=== PATIENT | male | born 1955 | race Caucasian/White ===

== ENCOUNTER 2021-01-30 23:49 | Inpatient (IN) | payer MEDICARE, SELFPAY ==
--- NOTE | ~2021-01-30 | XR_ITS ---
EXAMINATION: XR CHEST CLINICAL INFORMATION: Low oxygen. Dyspnea. COMPARISON: Chest radiograph dated from 08/10/2013. TECHNIQUE: AP view of the chest was obtained. FINDINGS: Normal appearance of the cardiomediastinal silhouette. Mild interstitial prominence without focal airspace opacities, pleural effusions or pneumothorax. No acute osseous findings. XR/XR chest 1V IMPRESSION: Mild bronchovascular prominence predominantly in the lower lobes which could be seen in the setting of an infectious/inflammatory process of the small airways. No focal airspace opacities, pleural effusions or pneumothorax.
[2021-01-30 23:59] VITALS: BP 210/127; PULSE 97; RESP 16; TEMP 37; O2SAT 100; BMI 24.5
[2021-01-31] VITALS (15 sets, daily range): BP systolic 160–185; BP diastolic 79–100; PULSE 69–96; RESP 15–22; TEMP 36.3–36.9; O2SAT 92–99
--- NOTE | 2021-01-31 | ECG_ITS ---
Test Reason : SOB Blood Pressure : / mmHG Vent. Rate : 099 BPM Atrial Rate : 099 BPM P-R Int : 146 ms QRS Dur : 092 ms QT Int : 380 ms P-R-T Axes : 083 084 074 degrees QTc Int : 487 ms Normal sinus rhythm Right atrial enlargement Intra-ventricular conduction delay Prolonged QT Abnormal ECG No previous ECGs available Referred By: Generic ED Physician Electronically Signed By:MONICA CANTU MD
--- NOTE | 2021-01-31 00:01 | PC.NURSE ---
PT WALKED INTO TRIAGE SPEAKING HALF SENTENCES, REPORTS DYSPNEA X 2 DAYS. INCREASED WHEN SUPINE. SPO2 ROOM AIR 80%
--- NOTE | 2021-01-31 00:08 | PC.NURSE ---
PT PLACED ON NRB 15 LMP AND ASSISTED TO RM 13 BY WC.
--- NOTE | 2021-01-31 00:21 | ED_ITS ---
HPI - SOB/Dyspnea General Chief Complaint: Dyspnea Stated Complaint: Diff Breathing Time Seen by Provider: 01/31/21 00:03 Source: patient Mode of arrival: ambulatory Limitations: no limitations History of Present Illness HPI Narrative: Patient comes to the emergency room complaining of cough shortness of breath since yesterday. Patient states yesterday he went golfing, initially he thought that his shortness of breath was secondary to allergies to the freshly cut grass. Throughout the day today, patient started becoming more short of breath. To his knowledge, he does not have history asthma or COPD. However, patient is a smoker, states he has not been able to smoke for 3 days due to shortness of breath. Patient denies chest pain. Denies any cardiac history. Denies any recent known exposure to COVID-19. Denies fever chills MD elicited complaint: shortness of breath Related Data Allergies Allergy/AdvReac Type Severity Reaction Status Date / Time No Known Allergies Allergy Unverified 01/11/20 15:12 Review of Systems Review of Systems: Constitutional : No Weight loss, No Fever, No Chills, No Night Sweats, No Fatigue, No Malaise ENT/Mouth : No Hearing loss, No Ear Pain, No Nasal Congestion, No Sinus Pain, No Hoarseness, No sore throat, No Rhinorrhea, No Swallowing Difficulty Eyes: No Eye Pain, No Swelling, No Redness, No Foreign Body, No Discharge, No Vision Changes Cardiovascular : No Chest Pain, No SOB, No Dyspnea on Exertion, No Orthopnea, No Edema, No Palpitations Respiratory : No Cough, No Sputum, complaining of chest tightness, wheezing, shortness of breath Gastrointestinal : No Nausea, No Vomiting, No Diarrhea, No Constipation, No abdominal Pain, No Hematochezia, No Melena Genitourinary : no irregular bleeding, No Dysuria, No Urinary Frequency, No Hematuria, No Urinary Incontinence, No Urgency, No Flank Pain, No Urinary Flow Changes, No Hesitancy Musculoskeletal : No joint pain, No Myalgias, No Joint Swelling Skin : No Skin Lesions, No rash Neuro : No Weakness, No Numbness, No Paresthesias, No Loss of Consciousness, No Dizziness, No Headache Psych : No Anxiety/Panic, No Depression, No SI/HI/AH/VH, No Social Issues, Heme/Lymph: No Bruising, No Bleeding,No Lymphadenopathy Endocrine : No Polyuria, No Polydipsia, No Temperature Intolerance [facility] Past Medical History Medical History (Updated 01/31/21 @ 01:23 by Stephania Saez MD) Hypertension Social History Social History Alcohol intake: never Patient Tobacco Use Status: Current everyday Tobacco user Use of substances other than those prescribed or required for medical reasons: No Advance Directives: No Physical Exam Vital Signs: Vital Signs: Last Vital Signs Temp 98.6 F 01/30/21 23:59 Pulse 96 01/31/21 00:05 Resp 16 01/30/21 23:59 BP 210/127 H 01/30/21 23:59 Pulse Ox 100 01/30/21 23:59 Body Mass Index 24.5 Const: Other: Appearance: Alert. Oriented X3. [id number] Eyes: Pupils equal, round and reactive to light. ENT: Pharynx normal. Neck: Normal inspection. Neck supple. No lymph nodes noted. No crepitus CVS: Normal heart rate and rhythm. Pulses normal. Normal S1 and S2 Respiratory: Mild to moderate respiratory distress. Decreased breath sounds, diffuse wheezing, oxygen saturation 80% on room air Abdomen: Distress . Normal skin color. Normal skin turgor. Extremities: Bilateral +1 pitting edema, No Lacerations. No Rash Neuro: Oriented X 3. No motor deficit. No sensory deficit. Moving all e xtermities. No slurred speech. Course Course Course Narrative: Patient received 1 DuoNeb, albuterol treatment, Solu-Medrol, 1 L of normal saline and ceftriaxone. Sepsis is not suspected, white blood cell count and lactic acid within normal limits, no fever. Patient likely has now COPD, patient may need pulmonary function test to confirm diagnosis. Patient's initial blood pressure 210/127, currently 150 systolic, EKG unremarkable, troponin and BNP within normal limits, COVID negative. Patient is still tight, wheezing mildly. Patient's oxygen saturation is 90% on 3 L nasal cannula. I discussed the labs and imaging with the patient, patient agrees to be admitted to the hospital. Dr. Pandey is admittingthe patient MDM - SOB/Dyspnea Lab Data Result diagrams: 01/31/21 00:16 01/31/21 00:16 Labs: Lab Results 01/31/21 01/31/21 01/31/21 Range/Units 00:16 00:16 00:16 WBC 9.7 (4.8-10.8) X10*3/uL RBC 4.26 L (4.60-5.80) X10*6/uL Hgb 14.8 (14.0-18.0) g/dl Hct 43.0 (42-52) % MCV 100.9 H (80-98) fL MCH 34.7 H (27.0-33.0) pg MCHC 34.4 (31.0-36.0) g/dl RDW 11.9 (11.0-16.0) % Plt Count 261 (160-400) X10*3/uL MPV 10.3 (9.4-12.4) fL Immature Gran % (Auto) 0.3 (0.0-0.4) % Neut % (Auto) 60.2 (45-73) % Lymph % (Auto) 24.7 (20-40) % [place] % (Auto) 8.4 (2-11) % Eos % (Auto) 6.1 H (0-4) % Baso % (Auto) 0.3 (0-2) % Lymph # (Auto) 2.4 (1.2-4.9) X10*3/uL [place] # (Auto) 0.8 (0.1-1.2) X10*3/uL Eos # (Auto) 0.6 H (0.0-0.4) X10*3/uL Baso # (Auto) 0.0 (0.0-0.2) X10*3/uL Abs Immat Gran (auto) 0.03 (0.00-0.03) X10*3/uL Absolute Neuts (auto) 5.8 (2.0-8.3) X10*3/uL Absolute Nucleated RBC 0.000 (0.0-0.012) X10*3/uL Nucleated RBC % (auto) 0.0 (0.0-0.2) /100WBC VBG pH (7.32-7.43) VBG pCO2 mmHg VBG pO2 mmHg VBG HCO3 (22-26) mmol/L VBG O2 Saturation % VBG Base Excess mmol/L Sodium 141 (135-145) mmol/L Potassium 4.2 (3.3-5.1) mmol/L Chloride 105 (96-108) mmol/L Carbon Dioxide 27 (22-29) mmol/L Anion Gap 13 (12-20) BUN 12 (9-16) mg/dL Creatinine 0.93 (0.5-1.4) mg/dL Estim Creat Clear Calc 77.0 Estimated GFR > 60 Random Glucose 98 (60-115) mg/dL Lactic Acid (0.5-2.0) mmol/L Calcium 9.5 (8.4-10.2) mg/dL Troponin I High Sens 5.5 (<3.5-35.0) ng/L B-Natriuretic Peptide 30 (<100) pg/mL Coronavirus (PCR) (Negative) Influenza Type A (PCR) (Negative) Influenza Type B (PCR) (Negative) RSV RNA Qual (PCR) (Negative) 01/31/21 01/31/21 01/31/21 Range/Units 00:16 00:16 00:33 WBC (4.8-10.8) X10*3/uL RBC (4.60-5.80) X10*6/uL Hgb (14.0-18.0) g/dl Hct (42-52) % MCV (80-98) fL MCH (27.0-33.0) pg MCHC (31.0-36.0) g/dl RDW (11.0-16.0) % Plt Count (160-400) X10*3/uL MPV (9.4-12.4) fL Immature Gran % (Auto) (0.0-0.4) % Neut % (Auto) (45-73) % Lymph % (Auto) (20-40) % [place] % (Auto) (2-11) % Eos % (Auto) (0-4) % Baso % (Auto) (0-2) % Lymph # (Auto) (1.2-4.9) X10*3/uL [place] # (Auto) (0.1-1.2) X10*3/uL Eos # (Auto) (0.0-0.4) X10*3/uL Baso # (Auto) (0.0-0.2) X10*3/uL Abs Immat Gran (auto) (0.00-0.03) X10*3/uL Absolute Neuts (auto) (2.0-8.3) X10*3/uL Absolute Nucleated RBC (0.0-0.012) X10*3/uL Nucleated RBC % (auto) (0.0-0.2) /100WBC VBG pH 7.31 L (7.32-7.43) VBG pCO2 63 mmHg VBG pO2 73 mmHg VBG HCO3 32 H (22-26) mmol/L VBG O2 Saturation 89.0 % VBG Base Excess 4.5 mmol/L Sodium (135-145) mmol/L Potassium (3.3-5.1) mmol/L Chloride (96-108) mmol/L Carbon Dioxide (22-29) mmol/L Anion Gap (12-20) BUN (9-16) mg/dL Creatinine (0.5-1.4) mg/dL Estim Creat Clear Calc Estimated GFR Random Glucose (60-115) mg/dL Lactic Acid 1.5 (0.5-2.0) mmol/L Calcium (8.4-10.2) mg/dL Troponin I High Sens (<3.5-35.0) ng/L B-Natriuretic Peptide (<100) pg/mL Coronavirus (PCR) NEGATIVE (Negative) Influenza Type A (PCR) NEGATIVE (Negative) Influenza Type B (PCR) NEGATIVE (Negative) RSV RNA Qual (PCR) NEGATIVE (Negative) Imaging Data Chest x-ray: Radiologist's impression: Mild bronchovascular prominence predominantly in the lower lobes which could be seen in the setting of an infectious/inflammatory process of the small airways. No focal airspace opacities, pleural effusions or pneumothorax. ECG Data Attestation: I personally reviewed and interpreted this ECG as follows: (Normal sinus rhythm, nonspecific ST changes in lead 2 and 3, no reciprocal changes, QTC 487. ) Critical Care Time Critical Care Time Critical Care Time: Yes Total Critical Care Time: 45 Attestation: 45 minutes were spent in direct patient care and stabilization. Discharge Plan Discharge Clinical Impression: COPD exacerbation, Hypertension Patient Disposition: Admitted As Inpatient
[2021-01-31 00:22] LABS: MANUAL DIFF FLAG NO
[2021-01-31 00:23] LABS: Basophils Percent Auto 0.3 % (0-2); Eosinophils Absolute Auto 0.6 X10*3/uL (0.0-0.4); Eosinophils Percent Auto 6.1 % (0-4); Hemoglobin 14.8 g/dl (14.0-18.0); Imm Gran Abs Auto 0.03 X10*3/uL (0.00-0.03); Imm Gran Pct Auto 0.3 % (0.0-0.4); Lymphocytes Absolute Auto 2.4 X10*3/uL (1.2-4.9); Lymphocytes Percent Auto 24.7 % (20-40); Mean Corpuscular HGB Conc 34.4 g/dl (31.0-36.0); Mean Corpuscular Hemoglobin 34.7 pg (27.0-33.0); Mean Corpuscular Volume 100.9 fL (80-98); Mean Platelet Volume 10.3 fL (9.4-12.4); Monocytes Absolute Auto 0.8 X10*3/uL (0.1-1.2); Monocytes Percent Auto 8.4 % (2-11); Neutrophils Absolute Auto 5.8 X10*3/uL (2.0-8.3); Neutrophils Percent Auto 60.2 % (45-73); Platelet Count 261 X10*3/uL (160-400); Red Blood Count 4.26 X10*6/uL (4.60-5.80); Red Cell Distribution Width 11.9 % (11.0-16.0); White Blood Count 9.7 X10*3/uL (4.8-10.8)
[2021-01-31 00:33] LABS: Lactic Acid 1.5 mmol/L (0.5-2.0)
[2021-01-31 00:37] LABS: Anion Gap 13 (12-20); Blood Urea Nitrogen 12 mg/dL (9-16); Calcium 9.5 mg/dL (8.4-10.2); Carbon Dioxide 27 mmol/L (22-29); Chloride 105 mmol/L (96-108); Estimated Glomerular Filt Rate > 60; Glucose Random 98 mg/dL (60-115); Potassium 4.2 mmol/L (3.3-5.1); Sodium 141 mmol/L (135-145)
[2021-01-31] MEDS: Albuterol Sulfate (0.083%) 2.5 MG/3 ML VIAL.NEB 7.5 MG INHALE (00:37)
[2021-01-31] MEDS: Albuterol/Iprat 2.5/0.5MG 3 ML AMPUL.NEB 1.5 ML INHALE (00:37)
[2021-01-31 00:38] LABS: Venous Blood Gas Refer to POC result
[2021-01-31 00:38] LABS: VBG Base Excess 4.5 mmol/L; VBG HCO3 32 mmol/L (22-26); VBG pCO2 63 mmHg; VBG pH 7.31 (7.32-7.43); VBG pO2 73 mmHg
[2021-01-31 00:43] LABS: B Type Natriuretic Peptide 30 pg/mL (<100); Troponin-I High Sensitivity 5.5 ng/L (<3.5-35.0)
[2021-01-31 01:03] LABS: Influenza A PCR NEGATIVE (Negative); Influenza B PCR NEGATIVE (Negative); Resp Syncy Virus RNA Qual PCR NEGATIVE (Negative); SARS COV2 PCR INHOUSE NEGATIVE (Negative)
[2021-01-31] MEDS: methylPREDNISolone Sod Succ 125 MG/2 ML VIAL IVPUSH (01:14)
[2021-01-31] MEDS: 0.9 % Sodium Chloride 1,000 ML 999 ML IVCONT (01:40)
[2021-01-31] MEDS: cefTRIAXone sodium 1 GM in 0.9 % Sodium Chloride 50 ML IV ×2 (01:41→21:10)
--- NOTE | 2021-01-31 01:43 | PM.IMHP ---
History of Present Illness Date of Service: 01/31/21 Chief Complaint: sob 65-year-old male with past medical history of hypertension not on any medications presents to the hospital with complaints of shortness of breath. Patient reports that his symptoms started about 3 days ago, is also complaining of cough and some sputum production with no fever or chills. He feels chest tightness every time he tries to take a deep breath he but no chest tightness on exertion or at rest. He denies having any abdominal pain nausea or vomiting, no diarrhea constipation, no urinary symptoms and no lower extremity edema. No orthopnea or PND. No lower extremity edema. Patient denies any similar episode in the past. He reports that he smokes about half pack per day for over 50 years. He has never been diagnosed with COPD in the past. On arrival to the ED patient found to have to a temp of 98.6, heart rate of 97, respiratory rate of 16, blood pressure of 210/127, O2 sat of 80% on room air on initial presentation to the ED, currently on 4.5 L of nasal cannula satting 95% Labs reviewed showed WBC count of 7.5, hemoglobin of 14.2, pH of 7.31 with a CO2 of 63, Chest x-ray that shows mild bronchovascular prominence predominantly in the lower lobe which can be seen with infection process of the small airways. Patient will be admitted for further management Review of Systems Review of Systems: Yes all other systems are reviewed and are negative [facility] Medical History (Updated 01/31/21 @ 06:38 by Marlee Pandey MD) Hypertension Pertinent family history: denies any family history Surgical History (Updated 01/31/21 @ 06:37 by Marlee Pandey MD) History of appendectomy Social History Alcohol intake: never Patient Tobacco Use Status: Current everyday Tobacco user Use of substances other than those prescribed or required for medical reasons: No Advance Directives: No Meds Allergies Allergy/AdvReac Type Severity Reaction Status Date / Time No Known Allergies Allergy Unverified 01/11/20 15:12 Active Medications: Current Medications Sodium Chloride (Ns) 1,000 mls @ 999 mls/hr IVCONT .Q1H1M ONE Stop: 01/31/21 02:13 Last Admin: 01/31/21 01:40 Dose: 999 mls/hr Documented by: Physical Exam Vital Signs and Narrative: Vital Signs: Last Vital Signs Temp 98.6 F 01/30/21 23:59 Pulse 96 01/31/21 00:05 Resp 16 01/30/21 23:59 BP 210/127 H 01/30/21 23:59 Pulse Ox 100 01/30/21 23:59 Body Mass Index 24.5 Results Labs CBC and Chem 7: 01/31/21 00:16 01/31/21 00:16 Labs: Laboratory Results - last 24 hr 01/31/21 01/31/21 01/31/21 00:16 00:16 00:16 MCV 100.9 H MCH 34.7 H MCHC 34.4 RDW 11.9 Plt Count 261 MPV 10.3 Immature Gran % (Auto) 0.3 Neut % (Auto) 60.2 Lymph % (Auto) 24.7 [place] % (Auto) 8.4 Eos % (Auto) 6.1 H Baso % (Auto) 0.3 Lymph # (Auto) 2.4 [place] # (Auto) 0.8 Eos # (Auto) 0.6 H Baso # (Auto) 0.0 Abs Immat Gran (auto) 0.03 Absolute Neuts (auto) 5.8 Absolute Nucleated RBC 0.000 Nucleated RBC % (auto) 0.0 VBG pH VBG pCO2 VBG pO2 VBG HCO3 VBG O2 Saturation VBG Base Excess Anion Gap 13 Estim Creat Clear Calc 77.0 Estimated GFR > 60 Random Glucose 98 Lactic Acid Calcium 9.5 Troponin I High Sens 5.5 B-Natriuretic Peptide 30 Coronavirus (PCR) Influenza Type A (PCR) Influenza Type B (PCR) RSV RNA Qual (PCR) 01/31/21 01/31/21 01/31/21 00:16 00:16 00:33 MCV MCH MCHC RDW Plt Count MPV Immature Gran % (Auto) Neut % (Auto) Lymph % (Auto) [place] % (Auto) Eos % (Auto) Baso % (Auto) Lymph # (Auto) [place] # (Auto) Eos # (Auto) Baso # (Auto) Abs Immat Gran (auto) Absolute Neuts (auto) Absolute Nucleated RBC Nucleated RBC % (auto) VBG pH 7.31 L VBG pCO2 63 VBG pO2 73 VBG HCO3 32 H VBG O2 Saturation 89.0 VBG Base Excess 4.5 Anion Gap Estim Creat Clear Calc Estimated GFR Random Glucose Lactic Acid 1.5 Calcium Troponin I High Sens B-Natriuretic Peptide Coronavirus (PCR) NEGATIVE Influenza Type A (PCR) NEGATIVE Influenza Type B (PCR) NEGATIVE RSV RNA Qual (PCR) NEGATIVE Imaging Radiologist's Impressions: Impressions Chest X-Ray 01/31/21 00:00 IMPRESSION: Mild bronchovascular prominence predominantly in the lower lobes which could be seen in the setting of an infectious/inflammatory process of the small airways. No focal airspace opacities, pleural effusions or pneumothorax. Assessment and Plan (1) COPD exacerbation: Status: Acute (2) Hypertensive urgency: Status: Acute (3) Acute respiratory failure with hypoxia: Status: Acute (4) Community acquired pneumonia: Status: Acute This is a 65-year-old male with past medical history of hypertension presents to the hospital with complaints of shortness of breath cough and sputum production. No history of COPD # acute hypoxic respiratory failure - most likely secondary to COPD exacerbation as well as pneumonia - patient with a history of chronic tobacco use with no official diagnosis of COPD presents with dyspnea, cough and sputum production - found to have oxygen of 80% on room air on arrival to the ED - no evidence of CHF, no risk factors for PE - chest x-ray shows possible infiltrate - afebrile, no leukocytosis - will continue O2 supplement - IV antibiotics - Solu-Medrol and DuoNeb - titrate O2 as tolerated # COPD exacerbation - no official diagnosis COPD - has history of tobacco use with dyspnea cough and sputum production - will start on Solu-Medrol IV, DuoNeb p.r.n. as well as scheduled, O2 as required, IV antibiotics for the pneumonia - advised to follow-up with data collection associate for spirometry # hypertensive urgency - initial blood pressure 210/127 - asymptomatic - improved spontaneously and currently 170s over 90s - does not appear to be on any medications - at this time will monitor, if continues to be elevated consider starting p.o. medications DVT prophylaxis: Lovenox Quality Stroke Does the patient have a stroke diagnosis?: No VTE Prior VTE?: No VTE Risk Level:: Medical - moderate - high VTE Device Contraindication: Treatment Not Indicated VTE Drug Contraindication: N/A - Med Ordered
[2021-01-31] MEDS: Azithromycin 500 MG in 0.9 % Sodium Chloride 250 ML 125 MG IV (06:25)
[2021-01-31 06:57] LABS: MANUAL DIFF FLAG NO
[2021-01-31 07:00] LABS: Basophils Percent Auto 0.4 % (0-2); Eosinophils Absolute Auto 0.4 X10*3/uL (0.0-0.4); Eosinophils Percent Auto 5.5 % (0-4); Hematocrit 39.1 % (42-52); Hemoglobin 12.9 g/dl (14.0-18.0); Imm Gran Abs Auto 0.05 X10*3/uL (0.00-0.03); Imm Gran Pct Auto 0.6 % (0.0-0.4); Lymphocytes Percent Auto 24.3 % (20-40); Mean Corpuscular Hemoglobin 33.9 pg (27.0-33.0); Mean Corpuscular Volume 102.6 fL (80-98); Mean Platelet Volume 10.9 fL (9.4-12.4); Monocytes Absolute Auto 0.8 X10*3/uL (0.1-1.2); Monocytes Percent Auto 9.5 % (2-11); Neutrophils Absolute Auto 4.8 X10*3/uL (2.0-8.3); Neutrophils Percent Auto 59.7 % (45-73); Platelet Count 235 X10*3/uL (160-400); Red Blood Count 3.81 X10*6/uL (4.60-5.80); Red Cell Distribution Width 11.9 % (11.0-16.0)
--- NOTE | 2021-01-31 07:13 | PHA.MEDREC ---
Pharmacy Consult ? Medication Reconciliation Pharmacy has completed the medication reconciliation. There are no remarkable issues for provider's attention. Stacey Villa, RobertoD
[2021-01-31] MEDS: Albuterol/Iprat 2.5/0.5MG 3 ML AMPUL.NEB INHALE ×4 (07:48→21:15)
--- NOTE | 2021-01-31 08:20 | PC.NURSE ---
pt seen by candace saldaña aware of plan of care for admission to hosp.
[2021-01-31] MEDS: Enoxaparin Sodium 40 MG/0.4 ML SYRINGE SUBCUT (08:36)
[2021-01-31] MEDS: 0.9 % Sodium Chloride Flush 3 ML SYRINGE IVFLUSH ×3 (08:37→21:11)
--- NOTE | 2021-01-31 10:42 | MHC.CM.PN ---
CM MET WITH PT IN ED 13. PT REPORTS HE LIVES ALONE AND IS INDEPENDENT WITH ALL CARE PT DENIES USE OF DME OR HOME SERVICES PT IS EMPLOYED AND DRIVES PT DOES NOT HAVE A HCP BUT WILL COMPLETE ONE DURING ADMISSION PT CONFIRMS HIS PCP IS HAZEL CANTU. CURRENT DC PLAN IS HOME WITH NO SERVICES PT WILL DRIVE HIMSELF HOME AT DC
--- NOTE | 2021-01-31 12:07 | P.EN_ITS ---
Event Note Date of Service: 01/31/21 Event Note: Chart reviewed patient examined. Exam unchanged from H and P. Pat ient resting quietly no respiratory distress. Will continue IV antibiotics/steroids/nebs and follow clinical response
[2021-01-31] MEDS: methylPREDNISolone Sod Succ 125 MG/2 ML VIAL 60 MG IVPUSH ×2 (12:52→21:10)
--- NOTE | 2021-01-31 14:39 | PC.NURSE ---
attempt to call report. no answer
--- NOTE | 2021-01-31 14:42 | PC.NURSE ---
hosea sent to [facility]
[2021-02-01] VITALS (11 sets, daily range): BP systolic 140–160; BP diastolic 69–80; PULSE 62–115; RESP 17–18; TEMP 36.1–36.8; O2SAT 90–94
[2021-02-01] MEDS: Azithromycin 500 MG in 0.9 % Sodium Chloride 250 ML 125 MG IV (02:56)
[2021-02-01] MEDS: Enoxaparin Sodium 40 MG/0.4 ML SYRINGE SUBCUT (06:22)
[2021-02-01] MEDS: methylPREDNISolone Sod Succ 125 MG/2 ML VIAL 60 MG IVPUSH ×3 (06:22→22:02)
[2021-02-01] MEDS: Albuterol/Iprat 2.5/0.5MG 3 ML AMPUL.NEB INHALE ×4 (08:22→21:02)
[2021-02-01] MEDS: 0.9 % Sodium Chloride Flush 3 ML SYRINGE IVFLUSH ×3 (09:09→22:02)
--- NOTE | 2021-02-01 16:30 | P.PNIM_ITS ---
Subjective Subjective Date of Service: 04/08/21 Interval History: Breathing somewhat improved overnight. Cough more productive after Neb Physical Exam Vital Signs: Vital Signs: Last Vital Signs Temp 98.2 F 02/01/21 15:36 Pulse 70 02/01/21 15:39 Resp 18 02/01/21 15:36 BP 144/80 H 02/01/21 15:36 Pulse Ox 92 02/01/21 15:36 Body Mass Index 24.5 Const: Other: Awake alert in no acute distress. Ambulatory sats on room air greater than 94% HENMT: Other: Oropharynx clear membranes moist Resp: Other: Diminished with aeration to the bases. Bibasilar expiratory wheezes; improved. Coarse rhonchi clear with cough Cardio: Other: No S4 positive S1-S2 no S3 without murmurs rubs or gallops GI: Other: Soft nontender nondistended with normoactive bowel sounds. There is no appreciable hepatosplenomegaly Neuro: Other: Cranial nerves 2-12 grossly intact as tested. Motor is 5/5 all extremities sensation is intact. Gait steady Extrem: Other: No edema bilaterally Objective Data Active Medications Acetaminophen (Acetaminophen 325 Mg Tablet) 650 mg PO Q6H PRN PRN Reason: Pain, Mild (Pain Scale 1-3) Albuterol/Ipratropium (Albuterol/Iprat 2.5/0.5mg 3 Ml Ampul.Neb) 3 ml INHALE RQ4H WHILE AWAKE [facility] Last Admin: 02/01/21 15:39 Dose: 3 ml Documented by: ИВАН Albuterol/Ipratropium (Albuterol/Iprat 2.5/0.5mg 3 Ml Ampul.Neb) 3 ml INHALE RQ4H PRN PRN Reason: Shortness of Breath/Wheezing Docusate Sodium (Docusate Sodium 100 Mg Capsule) 100 mg PO DAILY PRN PRN Reason: Constipation Enoxaparin Sodium (Enoxaparin Sodium 40 Mg/0.4 Ml Syringe) 40 mg SUBCUT Q24H [facility] Last Admin: 02/01/21 06:22 Dose: 40 mg Documented by: DORCAS Azithromycin 500 mg/ Sodium (Chloride) 250 mls @ 125 mls/hr IV Q24H [facility] Last Infusion: 02/01/21 05:14 Dose: 0 mls/hr Documented by: DORCAS Ceftriaxone Sodium 1 gm/ (Sodium Chloride) 50 mls @ 100 mls/hr IV Q24H [facility] Last Infusion: 01/31/21 22:21 Dose: 0 mls/hr Documented by: DORCAS Methylprednisolone Sodium Succinate (Methylprednisolone Sod Succ 125 Mg/2 Ml Vial) 60 mg IVPUSH Q8H [facility] Last Admin: 02/01/21 12:29 Dose: 60 mg Documented by: WILDER Ondansetron HCl (Ondansetron Hcl 4 Mg/2 Ml Vial) 4 mg IVPUSH Q8H PRN PRN Reason: Nausea and Vomiting Sodium Chloride (0.9 % Sodium Chloride Flush 3 Ml Syringe) 3 ml IVFLUSH QSHIFT [facility] Last Admin: 02/01/21 16:17 Dose: 3 ml Documented by: WILDER Labs CBC & Chem 7: 02/02/21 05:27 02/02/21 05:27 Microbiology Microbiology Results: Microbiology 01/31/21 00:58 Blood Culture - Preliminary Blood - Venous No growth after 24 hours. 01/31/21 00:30 Blood Culture - Preliminary Blood - Venous No growth after 24 hours. Assessment and Plan (1) COPD exacerbation: Status: Acute Assessment and Plan: This is a 65-year-old male with past medical history of hypertension presents to the hospital with complaints of shortness of breath cough and sputum production. No history of COPD # acute hypoxic respiratory failure - most likely secondary to COPD exacerbation as well as pneumonia - patient with a history of chronic tobacco use with no official diagnosis of COPD presents with dyspnea, cough and sputum production - found to have oxygen of 80% on room air on arrival to the ED - no evidence of CHF, no risk factors for PE - chest x-ray shows possible infiltrate - afebrile, no leukocytosis - will continue O2 supplement - IV antibiotics - Solu-Medrol and DuoNeb - titrate O2 as tolerated # COPD exacerbation - no official diagnosis COPD - has history of tobacco use with dyspnea cough and sputum production - will start on Solu-Medrol IV, DuoNeb p.r.n. as well as scheduled, O2 as req uired, IV antibiotics for the pneumonia - advised to follow-up with [place] worker helper for spirometry # hypertensive urgency - initial blood pressure 210/127 - asymptomatic - improved spontaneously and currently 170s over 90s - does not appear to be on any medications - at this time will monitor, if continues to be elevated consider starting p.o. medications DVT prophylaxis: Lovenox Quality Stroke Does the patient have a stroke diagnosis?: No VTE Prior VTE?: No VTE Risk Level:: Medical - moderate - high VTE Device Contraindication: Treatment Not Indicated VTE Drug Contraindication: N/A - Med Ordered
[2021-02-01] MEDS: cefTRIAXone sodium 1 GM in 0.9 % Sodium Chloride 50 ML IV (22:02)
[2021-02-02] MEDS: Azithromycin 500 MG in 0.9 % Sodium Chloride 250 ML 125 MG IV (02:59)
[2021-02-02 04:00] VITALS: BP 151/81; PULSE 84; RESP 17; TEMP 36.4; O2SAT 95
[2021-02-02] MEDS: methylPREDNISolone Sod Succ 125 MG/2 ML VIAL 60 MG IVPUSH ×2 (05:39→11:54)
[2021-02-02 06:30] LABS: Hematocrit 36.9 % (42-52); Hemoglobin 12.5 g/dl (14.0-18.0); Imm Gran Abs Auto 0.16 X10*3/uL (0.00-0.03); Imm Gran Pct Auto 0.8 % (0.0-0.4); Lymphocytes Absolute Auto 0.7 X10*3/uL (1.2-4.9); Lymphocytes Percent Auto 3.5 % (20-40); MANUAL DIFF FLAG SCAN; Mean Corpuscular HGB Conc 33.9 g/dl (31.0-36.0); Mean Corpuscular Hemoglobin 34.4 pg (27.0-33.0); Mean Corpuscular Volume 101.7 fL (80-98); Mean Platelet Volume 11.3 fL (9.4-12.4); Monocytes Absolute Auto 0.6 X10*3/uL (0.1-1.2); Monocytes Percent Auto 2.8 % (2-11); Neutrophils Absolute Auto 18.6 X10*3/uL (2.0-8.3); Neutrophils Percent Auto 92.9 % (45-73); Platelet Count 234 X10*3/uL (160-400); Red Blood Count 3.63 X10*6/uL (4.60-5.80); Red Cell Distribution Width 12.2 % (11.0-16.0); SCAN SMEAR FLAG 1; White Blood Count 20.1 X10*3/uL (4.8-10.8)
[2021-02-02 06:52] LABS: Alanine Aminotransferase 21 U/L (0-40); Albumin Level 3.7 g/dL (3.5-5.0); Alkaline Phosphatase 48 U/L (39-117); Anion Gap 13 (12-20); Aspartate Amino Transferase 13 U/L (5-37); Bilirubin Total 0.3 mg/dL (0.0-1.0); Blood Urea Nitrogen 20 mg/dL (9-16); Calcium 8.6 mg/dL (8.4-10.2); Carbon Dioxide 27 mmol/L (22-29); Chloride 106 mmol/L (96-108); Creatinine Clr Calc Pharmacy 80.5; Estimated Glomerular Filt Rate > 60; Glucose Fasting 152 mg/dL (60-99); Potassium 4.5 mmol/L (3.3-5.1); Sodium 141 mmol/L (135-145); Total Protein 5.8 g/dL (6.5-8.0)
[2021-02-02 07:06] LABS: SLIDE REVIEW VERIFIED
[2021-02-02 07:42] VITALS: BP 145/77; PULSE 68; RESP 18; TEMP 36.3; O2SAT 96
[2021-02-02] MEDS: Albuterol/Iprat 2.5/0.5MG 3 ML AMPUL.NEB INHALE ×2 (07:55→11:15)
[2021-02-02 07:56] VITALS: PULSE 79; O2SAT 94
[2021-02-02] MEDS: 0.9 % Sodium Chloride Flush 3 ML SYRINGE IVFLUSH (08:48)
[2021-02-02 10:33] VITALS: O2SAT 93
[2021-02-02 11:15] VITALS: PULSE 80; O2SAT 90
--- NOTE | 2021-02-02 11:15 | PM.DS ---
DS: Providers Provider Date of Service: 02/02/21 Date of admission: 01/31/21 01:21 Primary care physician: Feliberto Britt MD DS: Diagnosis Discharge Diagnosis (1) COPD exacerbation: Status: Acute (2) Hypertensive urgency: Status: Acute (3) Acute respiratory failure with hypoxia: Status: Acute (4) Community acquired pneumonia: Status: Acute DS: Summary Hospital Course Hospital Course: 65-year-old male with past medical history of hypertension not on any medications presents to the hospital with complaints of shortness of breath.? Patient reports that his symptoms started about 3 days ago, is also complaining of cough and some sputum production with no fever or chills.? He feels chest tightness every time he tries to take a deep breath he but no chest tightness on exertion or at rest.? He denies having any abdominal pain nausea or vomiting, no diarrhea constipation, no urinary symptoms and no lower extremity edema.? No orthopnea or PND.? No lower extremity edema.? Patient denies any similar episode in the past.? He reports that he smokes about half pack per day for over 50 years.? He has never been diagnosed with COPD in the past(Multiyear smoker) Hospital course Patient [place] [facility] pulmonary toilet including frequent nebs pulse dose Solu-Medrol and IV ceftriaxone/azithromycin. Over the next 48 hours his O2 requirement resolved and he was able to ambulate in the hallway with sats dropping no less than 94%. At this time he is medically acceptable for discharge to home with follow-up with PCP Time Spent with Patient Time attestation: Total time spent providing and/or coordinating discharge services: Discharge coordination time: Greater than 30 minutes Quality: Stroke Does the patient have a stroke diagnosis?: No Physical Exam Vital Signs: Vital Signs: Last Vital Signs Temp 97.4 F 02/02/21 07:42 Pulse 79 02/02/21 07:56 Resp 18 02/02/21 07:42 BP 145/77 H 02/02/21 07:42 Pulse Ox 93 02/02/21 10:33 Body Mass Index 24.5 Const: Other: Awake alert in no acute distress. Ambulatory sats on room air greater than 94% HENMT: Other: Oropharynx clear membranes moist Resp: Other: Diminished with aeration to the bases. Bibasilar expiratory wheezes; improved. Coarse rhonchi clear with cough Cardio: Other: No S4 positive S1-S2 no S3 without murmurs rubs or gallops GI: Other: Soft nontender nondistended with normoactive bowel sounds. There is no appreciable hepatosplenomegaly Neuro: Other: Cranial nerves 2-12 grossly intact as tested. Motor is 5/5 all extremities sensation is intact. Gait steady Extrem: Other: No edema bilaterally DS: Data Data Completed and Pending Labs on day of discharge: Laboratory Results - last 24 hr 02/02/21 02/02/21 05:27 05:27 WBC 20.1 H RBC 3.63 L Hgb 12.5 L Hct 36.9 L MCV 101.7 H MCH 34.4 H MCHC 33.9 RDW 12.2 Plt Count 234 MPV 11.3 Immature Gran % (Auto) 0.8 H Neut % (Auto) 92.9 H Lymph % (Auto) 3.5 L [place] % (Auto) 2.8 Eos % (Auto) 0.0 Baso % (Auto) 0.0 Lymph # (Auto) 0.7 L [place] # (Auto) 0.6 Eos # (Auto) 0.0 Baso # (Auto) 0.0 Abs Immat Gran (auto) 0.16 H Absolute Neuts (auto) 18.6 H Absolute Nucleated RBC 0.000 Nucleated RBC % (auto) 0.0 Smear Tech's Comments VERIFIED Sodium 141 Potassium 4.5 Chloride 106 Carbon Dioxide 27 Anion Gap 13 BUN 20 H D Creatinine 0.89 Estim Creat Clear Calc 80.5 Estimated GFR > 60 Fasting Glucose 152 H Calcium 8.6 D Total Bilirubin 0.3 AST 13 ALT 21 Alkaline Phosphatase 48 Total Protein 5.8 L Albumin 3.7 Preliminary micro results at discharge 01/31/21 00:58 Blood Culture - Preliminary Blood - Venous No growth after 48 hours. 01/31/21 00:30 Blood Culture - Preliminary Blood - Venous No growth after 48 hours. Discharge Plan Discharge Patient Disposition: Home, Self-Care Discharge Diagnosis: Community-acquired pneumonia/COPD exacerbation Referrals: Feliberto Britt MD [Primary Care Provider] - 1 Week Discharge Medications: New doxycycline hyclate 100 mg tablet 100 mg PO BID Qty: 14 RF: 0 prednisone 10 mg tablet See Rx Instructions .Route .COMPLEX Qty: 45 RF: 0 albuterol sulfate [Proventil HFA] 90 mcg/actuation HFA aerosol inhaler 2 puff inhalation QID PRN (Reason: shortness of breath or wheezing) Qty: 8.5 RF: 2 (DME) Aerochamber MV Spacer See Rx Instructions .Route Qty: 10 RF: 0 Continued multivitamin Tablet 1 tab PO DAILY RF: 0 losartan 50 mg tablet 1 tab PO DAILY RF: 0 atorvastatin 10 mg tablet 1 tab PO DAILY RF: 0 omeprazole 20 mg Capsule,Delayed Release(Dr/Ec) 20 mg PO DAILY RF: 0 doxazosin 2 mg tablet 1 tab PO BEDTIME RF: 0 Discharge Orders: Discharge Order (Routine); Ordered 02/02/21 Ordered By: Roni Gregg Stand Alone Forms: Patient Portal Discharge page Care Plan Goals: Maximize function Health Concerns: Tobacco cessation Plan of Treatment: Oral doxycycline/prednisone taper Assessment: Improved
[2021-02-02 11:19] VITALS: BP 163/77; PULSE 78; RESP 18; TEMP 36.5; O2SAT 98
--- NOTE | 2021-02-02 12:27 | MHC.CM.PN ---
PT TO DC HOME TODAY WITH NO SERVICES PT TO SELF ARRANGE TRANSPORT
== END 2021-02-02 13:00 | disposition home or self-care (01) | DRG 193 ==
LOC: HO.ED 01-31 01:23 → HO.EDOVER 01-31 01:26 → HO.S3 01-31 13:55
PROVIDERS: Emergency Medicine Emergency Medical Services; Admitting Provider Internal Medicine; Emergency Provider Emergency Medicine; PCP Internal Medicine; Visit Provider Hospitalist
DX: J18.9 Pneumonia, unspecified organism (principal); J96.01 Acute respiratory failure with hypoxia; J44.1 Chronic obstructive pulmonary disease with (acute) exacerbation; J44.0 Chronic obstructive pulmonary disease with (acute) lower respiratory infection; F17.210 Nicotine dependence, cigarettes, uncomplicated; Z71.6 Tobacco abuse counseling; I10 Essential (primary) hypertension; I16.0 Hypertensive urgency; Z20.822 Contact with and (suspected) exposure to COVID-19; Z79.899 Other long term (current) drug therapy
CPT/HCPCS: 0241U; 36415; 71045; 80048; 80053; 82803; 83605; 83880; 84484; 85025; 85027; 87040; 93005; 94640; 94644; 99285; J0456; J0696; J1650; J2930

== ENCOUNTER 2021-02-24 11:23 | Outpatient (REF) | payer MEDICARE, SELFPAY ==
--- NOTE | ~2021-02-24 | XR_ITS ---
EXAMINATION: XR CHEST CLINICAL INFORMATION: COPD. Pneumonia. COMPARISON: Most recent chest radiograph dated 01/31/2021. TECHNIQUE: 2 views of the chest were obtained. FINDINGS: The lungs are clear. The cardiomediastinal silhouette is normal in size. There is no pleural effusion or pneumothorax. No acute osseous abnormality. XR/XR chest 2V IMPRESSION: No acute cardiopulmonary findings.
[2021-02-24 13:41] LABS: MANUAL DIFF FLAG NO
[2021-02-24 13:44] LABS: Basophils Percent Auto 0.4 % (0-2); Eosinophils Absolute Auto 0.2 X10*3/uL (0.0-0.4); Eosinophils Percent Auto 1.9 % (0-4); Hematocrit 38.6 % (42.0-52.0); Hemoglobin 13.3 g/dl (14.0-18.0); Imm Gran Abs Auto 0.02 X10*3/uL (0.00-0.03); Imm Gran Pct Auto 0.2 % (0.0-0.4); Lymphocytes Absolute Auto 1.4 X10*3/uL (1.2-4.9); Lymphocytes Percent Auto 17.5 % (20-40); Mean Corpuscular HGB Conc 34.5 g/dl (31.0-36.0); Mean Corpuscular Hemoglobin 34.4 pg (27.0-33.0); Mean Corpuscular Volume 99.7 fL (80.0-98.0); Mean Platelet Volume 10.8 fL (9.4-12.4); Monocytes Absolute Auto 0.6 X10*3/uL (0.1-1.2); Monocytes Percent Auto 7.8 % (2-11); Neutrophils Absolute Auto 5.82 x10*3/uL (2.0-8.3); Neutrophils Percent Auto 72.2 % (45-73); Platelet Count 264 X10*3/uL (160-400); Red Blood Count 3.87 X10*6/uL (4.60-5.80); Red Cell Distribution Width 11.5 % (11.0-16.0); White Blood Count 8.1 X10*3/uL (4.8-10.8)
[2021-02-24 14:01] LABS: Appearance Urine CLEAR; Color Urine YELLOW; Glucose Urine UA NEG (NEG); Leukocyte Esterase Urine NEG (NEG); Nitrite Urine NEG (NEG); PH 5.5 (5.0-8.0); Urine Blood NEG (NEG); Urine Ketones 15 MG/DL (NEG); Urine Protein NEG (NEG-TRACE)
[2021-02-24 14:05] LABS: Alanine Aminotransferase 29 U/L (0-40); Albumin Level 4.2 g/dL (3.5-5.0); Alkaline Phosphatase 56 U/L (39-117); Anion Gap 13 (12-20); Aspartate Amino Transferase 23 U/L (5-37); Bilirubin Total 0.9 mg/dL (0.0-1.0); Blood Urea Nitrogen 13 mg/dL (9-16); Calcium 8.9 mg/dL (8.4-10.2); Carbon Dioxide 27 mmol/L (22-29); Chloride 105 mmol/L (96-108); Cholesterol 163 mg/dL; Estimated Glomerular Filt Rate > 60; Glucose Fasting 95 mg/dL (60-99); HDL Cholesterol 67 mg/dL; LDL Cholesterol Calculated 80 mg/dl; Potassium 4.1 mmol/L (3.3-5.1); Sodium 141 mmol/L (135-145); Total Protein 6.4 g/dL (6.5-8.0); Triglycerides 84 mg/dL
[2021-02-24 14:29] LABS: Prostate Specific Antigen Scr 0.99 ng/mL (<0.05-4.0)
== END 2021-02-24 11:24 | disposition home or self-care (01) ==
LOC: HO.10HDL 11:23
PROVIDERS: Visit Provider Internal Medicine
DX: Z12.5 Encounter for screening for malignant neoplasm of prostate (principal); J44.9 Chronic obstructive pulmonary disease, unspecified; I10 Essential (primary) hypertension; E78.00 Pure hypercholesterolemia, unspecified; N40.0 Benign prostatic hyperplasia without lower urinary tract symptoms; Z87.01 Personal history of pneumonia (recurrent)
CPT/HCPCS: 36415; 71046; 80053; 80061; 81003; 84153; 85025

== ENCOUNTER 2021-11-30 06:31 | Observation (INO) | payer MEDICARE, SELFPAY ==
[2021-11-30] VITALS (7 sets, daily range): BP systolic 147–182; BP diastolic 74–88; PULSE 82–112; RESP 12–20; TEMP 36.7–37.1; O2SAT 90–96; BMI 23.6
--- NOTE | ~2021-11-30 | XR_ITS ---
EXAMINATION: XR CHEST CLINICAL INFORMATION: Dyspnea COMPARISON: February 24, 2021 TECHNIQUE: AP portable view of the chest was obtained. FINDINGS: No significant abnormality is noted involving the heart, lungs, mediastinum, bony thorax or soft tissues. XR/XR chest 1V IMPRESSION: No acute disease.
--- NOTE | 2021-11-30 07:05 | ECG_ITS ---
Test Reason : DYSPNEA Blood Pressure : / mmHG Vent. Rate : 080 BPM Atrial Rate : 080 BPM P-R Int : 140 ms QRS Dur : 102 ms QT Int : 402 ms P-R-T Axes : 084 082 067 degrees QTc Int : 463 ms Normal sinus rhythm Normal ECG When compared with ECG of 31-JAN-2021 00:11, No significant change was found Referred By: Generic ED Physician Electronically Signed By:DARON BATES MD
--- NOTE | 2021-11-30 07:10 | ED_ITS ---
HPI - SOB/Dyspnea General Chief Complaint: Dyspnea Stated Complaint: Trouble Breathing Time Seen by Provider: 11/30/21 07:07 Source: patient Limitations: no limitations History of Present Illness HPI Narrative: 66 years on the smoker presented to the emergency department with a chief complaint of shortness of breath x4 days, denies any fever chills,he is concerned that he may have a pneumonia MD elicited complaint: shortness of breath and cough Pertinent past history: COPD Onset (ago): day(s) (4) Timing: constant Severity: moderate Exacerbating factors: exertion Known history of: COPD Associated symptoms: denies other symptoms Related Data Home oxygen amount: none Home Medications Medication Instructions Recorded Confirmed atorvastatin 10 mg tablet 1 tab PO DAILY 01/31/21 11/30/21 doxazosin 2 mg tablet 1 tab PO BEDTIME 01/31/21 11/30/21 losartan 50 mg tablet 1 tab PO DAILY 01/31/21 11/30/21 multivitamin 1 tab PO DAILY 01/31/21 11/30/21 omeprazole 20 mg capsule,delayed 20 mg PO DAILY 01/31/21 11/30/21 release Previous Rx's Medication Instructions Recorded albuterol sulfate 90 mcg/actuation 2 puff inhalation QID PRN 02/02/21 aerosol inhaler (Proventil HFA) shortness of breath or wheezing #8.5 grams inhalational spacing device #10 ea 02/02/21 (Aerochamber MV spacer) Allergies Allergy/AdvReac Type Severity Reaction Status Date / Time No Known Allergies Allergy Verified 01/31/21 16:37 Review of Systems Constitutional: Constitutional: Reports no additional constitutional complaints ENT: Reports system reviewed and no additional complaints, except as documented Cardiovascular: Cardiovascular: Reports dyspnea Respiratory: Respiratory: Reports cough and Reports dyspnea Gastrointestinal: Gastrointestinal: Reports no additional gastrointestinal complaints [facility] Past Medical History Medical History (Updated 11/30/21 @ 14:37 by Nabil Gale MD) GERD (gastroesophageal reflux disease) HLD (hyperlipidemia) Hypertension Hypertension Surgical History History of appendectomy Social History Social History Household Members: None Housing: Apartment Do you presently have visiting nurse or other home services: No Alcohol intake: never Patient Tobacco Use Status: Current everyday Tobacco user Tobacco use type: Cigarette e-Cigarette/Vaping Use: Currently Using Second Hand Smoke Exposure: No Advance Directives: Yes Advance Directives Information Provided: Yes Advance Directives on File: No Current occupational status: employed Physical Exam Vital Signs: Vital Signs: Last Vital Signs Temp 98.2 F 11/30/21 11:41 Pulse 82 11/30/21 14:31 Resp 18 11/30/21 14:31 BP 179/87 H 11/30/21 11:41 Pulse Ox 92 11/30/21 11:41 O2 Del Method 11/30/21 11:41 BMI result Body Mass Index 23.6 Const: General: cooperative HEENT: Head: Yes normal to inspection Ears: TM's normal bilaterally General nose exam: Normal external nose present Face and sinus: Yes normal facial exam Mouth: Normal oral and palatal mucosa present Throat: Yes posterior oropharynx normal Neck: Neck: Yes normal visual inspection, Yes full ROM and Yes no lymphadenopathy Chest: Chest palpation & inspection: normal inspection of the chest Breast/axilla inspection: normal inspection of the breasts Resp: Auscultation: wheezes Cardio: Jugular venous distension: no JVD Rate: regular rate Rhythm: regular rhythm GI: Inspection: Yes normal to inspection Palpation (GI): Soft to palpation, not firm and nontender Skin: General skin exam: no rashes or lesions noted Course Reevaluation(s) Reevaluation #1: better but still wheezing will admit MDM - SOB/Dyspnea Lab Data Result diagrams: 11/30/21 07:37 11/30/21 07:37 Labs: Lab Results 11/30/21 11/30/21 11/30/21 Range/Units 07:37 07:37 07:37 WBC 6.3 (4.8-10.8) X10*3/uL RBC 3.74 L (4.60-5.80) X10*6/uL Hgb 13.0 L (14.0-18.0) g/dl Hct 37.3 L (42.0-52.0) % MCV 99.7 H (80.0-98.0) fL MCH 34.8 H (27.0-33.0) pg MCHC 34.9 (31.0-36.0) g/dl RDW 11.8 (11.0-16.0) % Plt Count 208 (160-400) X10*3/uL MPV 10.1 (9.4-12.4) fL Absolute Nucleated RBC 0.000 (0.0-0.012) X10*3/uL Nucleated RBC % (auto) 0.0 (0.0-0.2) /100WBC Sodium 141 (135-145) mmol/L Potassium 4.6 (3.3-5.1) mmol/L Chloride 105 (96-108) mmol/L Carbon Dioxide 27 (22-29) mmol/L Anion Gap 14 (12-20) BUN 15 (9-16) mg/dL Creatinine 0.83 (0.5-1.4) mg/dL Estim Creat Clear Calc 85.1 Estimated GFR > 60 Random Glucose 97 (60-115) mg/dL Calcium 8.9 (8.4-10.2) mg/dL Troponin I High Sens < 3.5 (<3.5-35.0) ng/L COVID-19 ([facility]) (Negative) COVID-19 Clin Com 11/30/21 Range/Units 07:37 WBC (4.8-10.8) X10*3/uL RBC (4.60-5.80) X10*6/uL Hgb (14.0-18.0) g/dl Hct (42.0-52.0) % MCV (80.0-98.0) fL MCH (27.0-33.0) pg MCHC (31.0-36.0) g/dl RDW (11.0-16.0) % Plt Count (160-400) X10*3/uL MPV (9.4-12.4) fL Absolute Nucleated RBC (0.0-0.012) X10*3/uL Nucleated RBC % (auto) (0.0-0.2) /100WBC Sodium (135-145) mmol/L Potassium (3.3-5.1) mmol/L Chloride (96-108) mmol/L Carbon Dioxide (22-29) mmol/L Anion Gap (12-20) BUN (9-16) mg/dL Creatinine (0.5-1.4) mg/dL Estim Creat Clear Calc Estimated GFR Random Glucose (60-115) mg/dL Calcium (8.4-10.2) mg/dL Troponin I High Sens (<3.5-35.0) ng/L COVID-19 ([facility]) Negative (Negative) COVID-19 Clin Com See Note Imaging Data Chest x-ray: Radiologist's impression: cc: Marcos Can MD~ EXAMINATION: XR CHEST CLINICAL INFORMATION: Dyspnea COMPARISON: February 24, 2021 TECHNIQUE: AP portable view of the chest was obtained. FINDINGS: No significant abnormality is noted involving the heart, lungs, mediastinum, bony thorax or soft tissues. XR/XR chest 1V IMPRESSION: No acute disease. ? Dictated By: Salvador Ritter MD Signed By: <Electronically signed by Salvador Ritter MD in OV> 11/30/21 0809 DD/ 0755 TD/TT:? County Sheriff: ANN MARIE Critical Care Time Critical Care Time Total Critical Care Time: 30 Attestation: multiple nebs stack of 3 nebs (7.5 mg albuterol/hypoxia) Discharge Plan Discharge Clinical Impression: COPD exacerbation Patient Disposition: Admitted As Inpatient
[2021-11-30 07:42] LABS: Hematocrit 37.3 % (42.0-52.0); Mean Corpuscular HGB Conc 34.9 g/dl (31.0-36.0); Mean Corpuscular Hemoglobin 34.8 pg (27.0-33.0); Mean Corpuscular Volume 99.7 fL (80.0-98.0); Mean Platelet Volume 10.1 fL (9.4-12.4); Platelet Count 208 X10*3/uL (160-400); Red Blood Count 3.74 X10*6/uL (4.60-5.80); Red Cell Distribution Width 11.8 % (11.0-16.0); White Blood Count 6.3 X10*3/uL (4.8-10.8)
[2021-11-30] MEDS: methylPREDNISolone Sod Succ 125 MG/2 ML VIAL IVPUSH (07:43)
[2021-11-30 08:03] LABS: COVID-19 Test Negative (Negative)
[2021-11-30 08:06] LABS: Anion Gap 14 (12-20); Blood Urea Nitrogen 15 mg/dL (9-16); Calcium 8.9 mg/dL (8.4-10.2); Carbon Dioxide 27 mmol/L (22-29); Chloride 105 mmol/L (96-108); Creatinine Clr Calc Pharmacy 85.1; Estimated Glomerular Filt Rate > 60; Glucose Random 97 mg/dL (60-115); Potassium 4.6 mmol/L (3.3-5.1); Sodium 141 mmol/L (135-145)
[2021-11-30 08:12] LABS: Troponin-I High Sensitivity < 3.5 ng/L (<3.5-35.0)
--- NOTE | 2021-11-30 10:24 | P.HPHOSP_ITS ---
History of Present Illness Date of Service: 11/30/21 Chief Complaint: shortness of breath 66-year-old male with history of hypertension, HTN, HLD, BPH, GERD, former smoker, he tells me he does not have history of COPD although he uses inhalers at home. He comes in today with shortness of breath that has been ongoing for 3-4 days and seemed to be a worsening no relief with the inhalers that he uses at home. He has not been coughing has no fever or chill. On presentation he was noted to be wheezy with a 1 time oxygen saturation on 90 on room. he was given bronchodilators by nebulizers and the given IV Solu-Medrol as well checks x-ray showed no acute pneumonic process. By the time I saw the patient he tell me that he was feeling much better. Admission is been requested for COPD exacerbation Review of Systems Review of Systems: Gen: no fever Resp: + sob, no cough CV: no chest, no ROBBINS, no leg edema GI: No n/v, no abd pain Neuro: No confusion Yes all other systems are reviewed and are negative [facility] Medical History GERD (gastroesophageal reflux disease) HLD (hyperlipidemia) Hypertension Hypertension Pertinent family history: htn Surgical History History of appendectomy Social History Household Members: None Housing: Apartment Do you presently have visiting nurse or other home services: No Alcohol intake: never Patient Tobacco Use Status: Current everyday Tobacco user Tobacco use type: Cigarette e-Cigarette/Vaping Use: Currently Using Second Hand Smoke Exposure: No Advance Directives: Yes Advance Directives Information Provided: Yes Advance Directives on File: No Current occupational status: employed Meds Allergies Allergy/AdvReac Type Severity Reaction Status Date / Time No Known Allergies Allergy Verified 01/31/21 16:37 Active Medications: Current Medications Pharmacy Consult (Consult Rx Perform Med Rec) 1 each MISCELLANE ONCE PRN PRN Reason: Consult order Home Medications Medication Instructions Recorded Confirmed Last Taken Type atorvastatin 10 mg tablet 1 tab PO DAILY 01/31/21 11/30/21 11/30/21 History doxazosin 2 mg tablet 1 tab PO BEDTIME 01/31/21 11/30/21 11/29/21 History losartan 50 mg tablet 1 tab PO DAILY 01/31/21 11/30/21 11/30/21 History multivitamin 1 tab PO DAILY 01/31/21 11/30/21 11/30/21 History omeprazole 20 mg capsule,delayed 20 mg PO DAILY 01/31/21 11/30/21 11/30/21 History release Physical Exam Vital Signs and Narrative: Vital Signs: Last Vital Signs Temp 98.7 F 11/30/21 06:52 Pulse 96 11/30/21 07:28 Resp 18 11/30/21 07:28 BP 165/85 H 11/30/21 06:52 Pulse Ox 90 L 11/30/21 06:52 O2 Del Method 11/30/21 06:52 BMI result Body Mass Index 23.6 Const: Other: Constitutional: Alert, in no distress, Mental Status: Oriented to person, place and time. Eyes: Pupils are equal, round and reactive to light. Ear, Nose and Throat: Oropharynx clear, mucous membranes moist. Respiratory: decrease air enty, upper lung field wheezing i. Cardiovascular: S1 S2 regular. No murmurs, rubs or gallops. Gastrointestinal: Abdomen soft, non-tender, non-distended. Normal bowel sounds.? Neurologic: Cranial nerves II-XII grossly intact. No focal neurological deficits. Moves all extremities spontaneously.? Skin: No rashes or lesions.? Musculoskeletal: No cyanosis or clubbing. Psychiatric: Normal mood and affect? Results Labs CBC and Chem 7: 11/30/21 07:37 11/30/21 07:37 Labs: Laboratory Results - last 24 hr 11/30/21 11/30/21 11/30/21 07:37 07:37 07:37 MCV 99.7 H MCH 34.8 H MCHC 34.9 RDW 11.8 Plt Count 208 MPV 10.1 Absolute Nucleated RBC 0.000 Nucleated RBC % (auto) 0.0 Anion Gap 14 Estim Creat Clear Calc 85.1 Estimated GFR > 60 Random Glucose 97 Calcium 8.9 COVID-19 ([facility]) Negative COVID-19 Clin Com See Note Imaging Radiologist's Impressions: Impressions Chest X-Ray 11/30/21 07:55 IMPRESSION: No acute disease. Assessment and Plan (1) COPD exacerbation: Status: Acute Plan 66-year-old male with undiagnosed COPD, hypertension presented with a shortness of breath wheezing with clinical presentation consistent with exacerbation of COPD. Plan: Observe overnight, give bronchodilators by nebulizers, IV Solu-Medrol till tomorrow morning and if better will transition to oral prednisone and discharged. HTN--restart meds after reconciliation HLD--Lipitor BPH--Doxazosin GERD--prilosec DVT prophyalxis--low risk if stay beyond tomorrow then lovneox Quality Stroke Does the patient have a stroke diagnosis?: No VTE Prior VTE?: No VTE Risk Level:: Medical - low VTE Device Contraindication: Treatment Not Indicated VTE Drug Contraindication: Treatment Not Indicated
--- NOTE | 2021-11-30 11:09 | PHA.MEDREC ---
MED REC COMPLETE, NO ISSUES Pharmacy Consult ? Medication Reconciliation Pharmacy has completed the medication reconciliation.
--- NOTE | 2021-11-30 12:38 | PC.NURSE ---
pt has been resting comfortably supine, rr even/unlabored on room air. offers no physical complaints. vss. awaiting inpt bed assign.
[2021-11-30] MEDS: Albuterol Sulfate (0.083%) 2.5 MG/3 ML VIAL.NEB INHALE ×2 (14:31→19:13)
[2021-11-30] MEDS: methylPREDNISolone Sod Succ 40 MG/ML VIAL IVPUSH ×2 (14:50→20:50)
[2021-11-30] MEDS: Atorvastatin Calcium 10 MG TABLET PO (20:50)
[2021-11-30] MEDS: Doxazosin Mesylate 2 MG TABLET PO (20:50)
[2021-12-01] VITALS: BP 159/86; PULSE 87; TEMP 37; O2SAT 91
[2021-12-01] MEDS: methylPREDNISolone Sod Succ 40 MG/ML VIAL IVPUSH ×2 (02:34→09:50)
[2021-12-01] MEDS: 0.9 % Sodium Chloride Flush 3 ML SYRINGE IVFLUSH (02:34)
[2021-12-01] MEDS: Omeprazole 20 MG CAPSULE.DR PO (06:23)
[2021-12-01 06:37] VITALS: BP 162/91; PULSE 77; O2SAT 92
[2021-12-01] MEDS: Albuterol Sulfate (0.083%) 2.5 MG/3 ML VIAL.NEB INHALE (07:47)
[2021-12-01 07:48] VITALS: PULSE 82; RESP 18; O2SAT 96
[2021-12-01] MEDS: Multivitamin TABLET 1 TAB PO (09:51)
[2021-12-01] MEDS: Losartan Potassium 50 MG TABLET PO (09:51)
--- NOTE | 2021-12-01 09:54 | PC.NURSE ---
appears well. skin pwd. up for resp ambulation trial. states he's better following am treatment. unlabored resp.
[2021-12-01 09:58] VITALS: BP 168/75; PULSE 91; RESP 18; TEMP 36.6; O2SAT 91
[2021-12-01 10:03] VITALS: PULSE 106; PULSE 119
--- NOTE | 2021-12-01 10:30 | PM.DS ---
DS: Providers Provider Date of Service: 12/01/21 Date of admission: 11/30/21 10:35 Date of discharge: 12/01/21 Primary care physician: Feliberto Britt MD DS: Diagnosis Discharge Diagnosis (1) COPD exacerbation: Status: Acute DS: Summary Hospital Course Hospital Course: from admission H+P by hospitalist Nabil Gale, 8.7.22: ?66-year-old male with history of hypertension, HTN, HLD, BPH,? GERD, former smoker, he tells me he does not have history of COPD although he uses inhalers at home.? He comes in today with shortness of breath that has been ongoing for 3-4 days and seemed to be a worsening no relief with the inhalers that he uses at home.? He has not been coughing has no fever or chill.? On presentation he was noted to be wheezy with a 1 time oxygen saturation on 90 on room.? he was given bronchodilators by nebulizers and the given IV Solu-Medrol as well checks x-ray showed no acute pneumonic process.? By the time I saw the patient he tell me that he was feeling much better.? Admission is been requested for COPD exacerbation He was admitted to the hospitalist service and treated with IV steroids and nebulized bronchodilators. His symptoms improved and he did not require supplemental oxygen. He was discharged home on a course of prednisone and his albuterol inhaler was refilled. He was counseled to quit smoking and was prescribed NRT to assist with this. He was instructed to follow up with his primary care doctor in 1 week and to request formal PFT testing. Time Spent with Patient Time attestation: Total time spent providing and/or coordinating discharge services: Discharge coordination time: Greater than 30 minutes Quality: Safe Use of Opioids Does Pt have an Active Cancer Diagnosis on the Problem List?: No Quality: Stroke Does the patient have a stroke diagnosis?: No Physical Exam Vital Signs: Vital Signs: Last Vital Signs Temp 97.8 F 12/01/21 09:58 Pulse 91 12/01/21 09:58 Resp 18 12/01/21 09:58 BP 168/75 H 12/01/21 09:58 Pulse Ox 91 L 12/01/21 09:58 O2 Del Method 12/01/21 09:58 BMI result Body Mass Index 23.6 Gen: in no acute distress HEENT: sclera anicteric, moist mucus membranes Neck: supple Lungs: faint end-exp wheezes at bases bilaterally, good air entry throughout Heart: regular rate and rhythm, no murmurs Abd: soft, non-tender, non-distended Ext: no edema Skin: warm/well-perfused Neuro: alert and oriented x3, no focal findings Psych: appropriate affect DS: Data Data Completed and Pending Completed studies during hospitalization [Text1]: Laboratory Results WBC 6.3 X10*3/uL (4.8-10.8) 11/30/21 07:37 RBC 3.74 X10*6/uL (4.60-5.80) L 11/30/21 07:37 Hgb 13.0 g/dl (14.0-18.0) L 11/30/21 07:37 Hct 37.3 % (42.0-52.0) L 11/30/21 07:37 MCV 99.7 fL (80.0-98.0) H 11/30/21 07:37 MCH 34.8 pg (27.0-33.0) H 11/30/21 07:37 MCHC 34.9 g/dl (31.0-36.0) 11/30/21 07:37 RDW 11.8 % (11.0-16.0) 11/30/21 07:37 Plt Count 208 X10*3/uL (160-400) 11/30/21 07:37 MPV 10.1 fL (9.4-12.4) 11/30/21 07:37 Absolute Nucleated RBC 0.000 X10*3/uL (0.0-0.012) 11/30/21 07:37 Nucleated RBC % (auto) 0.0 /100WBC (0.0-0.2) 11/30/21 07:37 Sodium 141 mmol/L (135-145) 11/30/21 07:37 Potassium 4.6 mmol/L (3.3-5.1) 11/30/21 07:37 Chloride 105 mmol/L (96-108) 11/30/21 07:37 Carbon Dioxide 27 mmol/L (22-29) 11/30/21 07:37 Anion Gap 14 (12-20) 11/30/21 07:37 BUN 15 mg/dL (9-16) 11/30/21 07:37 Creatinine 0.83 mg/dL (0.5-1.4) 11/30/21 07:37 Estim Creat Clear Calc 85.1 11/30/21 07:37 Estimated GFR > 60 11/30/21 07:37 Random Glucose 97 mg/dL (60-115) 11/30/21 07:37 Calcium 8.9 mg/dL (8.4-10.2) 11/30/21 07:37 Troponin I High Sens < 3.5 ng/L (<3.5-35.0) 11/30/21 07:37 COVID-19 ([facility]) Negative (Negative) 11/30/21 07:37 COVID-19 Clin Com See Note 11/30/21 07:37 Impressions Chest X-Ray 11/30/21 07:55 IMPRESSION: No acute disease. Discharge Plan Discharge Patient Disposition: Home, Self-Care Discharge Diagnosis: possible COPD exacerbation Referrals: Feliberto Britt MD [Primary Care Provider] - 1 Week Discharge Medications: New prednisone 20 mg tablet 40 mg PO DAILY Qty: 8 0RF nicotine (polacrilex) 2 mg gum 2 mg buccal Q2H PRN (Reason: nicotine cravings) Qty: 100 0RF Continued multivitamin Tablet 1 tab PO DAILY losartan 50 mg tablet 1 tab PO DAILY atorvastatin 10 mg tablet 1 tab PO DAILY omeprazole 20 mg Capsule,Delayed Release(Dr/Ec) 20 mg PO DAILY doxazosin 2 mg tablet 1 tab PO BEDTIME albuterol sulfate [Proventil HFA] 90 mcg/actuation HFA aerosol inhaler 2 puff inhalation QID PRN (Reason: shortness of breath or wheezing) Qty: 8.5 2RF (DME) Aerochamber MV Spacer See Rx Instructions .Route Qty: 10 0RF Rx Instructions: As directed Discharge Orders: Discharge Order (Routine); Ordered 12/01/21 Ordered By: Kyle Perez Diet: Advance to usual diet Activity on Discharge: As tolerated Stand Alone Forms: Patient Portal Discharge page Care Plan Goals: lung health Health Concerns: possible COPD exacerbation Plan of Treatment: prednisone 40 mg daily x 4 days albuterol as needed for shortness of breath/wheeze follow up with primary care doctor in 1 week and request pulmonary function tests (PFTs) quit smoking; using nicotine replacement to help Assessment: See Discharge Summary Patient Instructions: Cigarette Smoking and Your Health (GEN), COPD (Chronic Obstructive Pulmonary Disease) (DC)
[2021-12-01 10:53] VITALS: BP 143/69; PULSE 76; RESP 14; TEMP 37; O2SAT 90
== END 2021-12-01 11:10 | disposition home or self-care (01) ==
LOC: HO.ED 10:47 → HO.EDOVER 11:04
PROVIDERS: Admitting Provider Internal Medicine; Emergency Provider Emergency Medicine; PCP Internal Medicine; Visit Provider Family Medicine
DX: J44.1 Chronic obstructive pulmonary disease with (acute) exacerbation (principal); I10 Essential (primary) hypertension; R06.02 Shortness of breath; Z20.822 Contact with and (suspected) exposure to COVID-19; Z87.891 Personal history of nicotine dependence; Z79.899 Other long term (current) drug therapy
CPT/HCPCS: 36415; 71045; 80048; 84484; 85027; 87635; 93005; 94640; 96374; 96375; 96376; 99218; 99285; J2920; J2930

== ENCOUNTER 2021-12-29 21:26 | Inpatient (IN) | payer MEDICARE, SELFPAY ==
--- NOTE | ~2021-12-29 | XR_ITS ---
EXAMINATION: XR CHEST CLINICAL INFORMATION: Dyspnea COMPARISON: Chest x-ray 11/30/2021 TECHNIQUE: Frontal view of the chest was obtained. 9:48 PM FINDINGS: Lungs are clear. No pulmonary vascular congestion. There is no pleural effusion. The heart size is normal. The cardiac and mediastinal contours are normal. There are multilevel degenerative changes of dorsal spine. XR/XR chest 1V IMPRESSION: Unremarkable examination.
[2021-12-29 21:30] VITALS: BP 178/84; PULSE 106; RESP 26; TEMP 36.6; O2SAT 92; BMI 23.6
--- NOTE | 2021-12-29 21:34 | ECG_ITS ---
Test Reason : SOB Blood Pressure : / mmHG Vent. Rate : 103 BPM Atrial Rate : 103 BPM P-R Int : 140 ms QRS Dur : 096 ms QT Int : 352 ms P-R-T Axes : 083 085 062 degrees QTc Int : 461 ms Sinus tachycardia Otherwise normal ECG When compared with ECG of 30-NOV-2021 07:22, Heart rate has increased Referred By: Generic ED Physician Electronically Signed By:ESE MORA
[2021-12-29 21:47] LABS: MANUAL DIFF FLAG NO
[2021-12-29 21:50] LABS: Basophils Percent Auto 0.5 % (0-2); Eosinophils Absolute Auto 0.4 X10*3/uL (0.0-0.4); Eosinophils Percent Auto 4.6 % (0-4); Hematocrit 38.2 % (42.0-52.0); Hemoglobin 13.3 g/dl (14.0-18.0); Imm Gran Abs Auto 0.05 X10*3/uL (0.00-0.03); Imm Gran Pct Auto 0.6 % (0.0-0.4); Lymphocytes Absolute Auto 2.2 X10*3/uL (1.2-4.9); Lymphocytes Percent Auto 28.1 % (20-40); Mean Corpuscular HGB Conc 34.8 g/dl (31.0-36.0); Mean Corpuscular Hemoglobin 34.9 pg (27.0-33.0); Mean Corpuscular Volume 100.3 fL (80.0-98.0); Mean Platelet Volume 10.3 fL (9.4-12.4); Monocytes Absolute Auto 0.8 X10*3/uL (0.1-1.2); Monocytes Percent Auto 10.7 % (2-11); Neutrophils Absolute Auto 4.4 x10*3/uL (2.0-8.3); Neutrophils Percent Auto 55.5 % (45-73); Platelet Count 243 X10*3/uL (160-400); Red Blood Count 3.81 X10*6/uL (4.60-5.80); Red Cell Distribution Width 11.9 % (11.0-16.0); White Blood Count 7.9 X10*3/uL (4.8-10.8)
[2021-12-29 22:06] LABS: Anion Gap 19 (12-20); Blood Urea Nitrogen 14 mg/dL (9-16); Calcium 8.5 mg/dL (8.4-10.2); Carbon Dioxide 22 mmol/L (22-29); Chloride 105 mmol/L (96-108); Creatinine Clr Calc Pharmacy 77.6; Estimated Glomerular Filt Rate > 60; Glucose Random 95 mg/dL (60-115); Potassium 3.8 mmol/L (3.3-5.1); Sodium 142 mmol/L (135-145)
[2021-12-29 22:11] LABS: IDNOW Serial# 55D5AD1C
[2021-12-29 22:12] LABS: COVID-19 Test Negative (Negative)
[2021-12-29 22:13] LABS: B Type Natriuretic Peptide 69 pg/mL (<100); Troponin-I High Sensitivity 4.2 ng/L (<3.5-35.0)
--- NOTE | 2021-12-29 23:36 | ED.SOB ---
HPI - SOB/Dyspnea General Chief Complaint: Dyspnea Stated Complaint: trouble breathing Time Seen by Provider: 12/29/21 23:18 Source: patient Mode of arrival: ambulatory History of Present Illness HPI Narrative: 66-year-old male with history of COPD and currently on medications for this but does not know his baseline oxygenation, comes in with increasing shortness of breath throughout the day and states that the medication his not working. Patient states that he has had increased yellowish phlegm production with increased cough, however he denies any fever or chills. He reports chest pain with coughing, he denies any nausea, vomiting, diarrhea or abdominal discomfort and endorses that he had couple of beers this evening with dinner. Patient states that he quit smoking 1 month ago. Related Data Home Medications Medication Instructions Recorded Confirmed atorvastatin 10 mg tablet 1 tab PO DAILY 01/31/21 11/30/21 doxazosin 2 mg tablet 1 tab PO BEDTIME 01/31/21 11/30/21 losartan 50 mg tablet 1 tab PO DAILY 01/31/21 11/30/21 multivitamin 1 tab PO DAILY 01/31/21 11/30/21 omeprazole 20 mg capsule,delayed 20 mg PO DAILY 01/31/21 11/30/21 release Previous Rx's Medication Instructions Recorded albuterol sulfate 90 mcg/actuation 2 puff inhalation QID PRN 12/01/21 aerosol inhaler (Proventil HFA) shortness of breath or wheezing #8.5 grams inhalational spacing device #10 ea 12/01/21 (Aerochamber MV spacer) nicotine (polacrilex) 2 mg gum 2 mg buccal Q2H PRN nicotine 12/01/21 cravings #100 ea prednisone 20 mg tablet 40 mg PO DAILY #8 tabs 12/01/21 Allergies Allergy/AdvReac Type Severity Reaction Status Date / Time No Known Allergies Allergy Verified 01/31/21 16:37 Review of Systems Review of Systems: Pertinent positives and negatives as stated in HPI 10 point review of systems is otherwise negative. PMFSH Past Medical History Source: nursing notes reviewed Medical History COPD exacerbation GERD (gastroesophageal reflux disease) HLD (hyperlipidemia) Hypertension Hypertension Surgical History History of appendectomy Social History Social History Household Members: None Housing: Apartment Do you presently have visiting nurse or other home services: No Alcohol intake: current Alcohol intake frequency: 0-2 drinks per day Alcohol type: beer Patient Tobacco Use Status: Current someday Tobacco user Tobacco use type: Cigarette Smoked in Last 30 Days: Yes e-Cigarette/Vaping Use: Currently Using Second Hand Smoke Exposure: No Use of substances other than those prescribed or required for medical reasons: No Advance Directives: No Advance Directives Information Provided: No Current occupational status: employed Physical Exam Vital Signs: Vital Signs: Last Vital Signs Temp 97.9 F 12/30/21 01:39 Pulse 86 12/30/21 01:39 Resp 16 12/30/21 01:39 BP 153/73 H 12/30/21 01:39 Pulse Ox 94 12/29/21 23:55 O2 Del Method 12/30/21 01:39 BMI result Body Mass Index 23.6 VITAL SIGNS: Reviewed. GENERAL: Well developed, well nourished, in mild distress. HEAD: Normocephalic/atraumatic EYES: PERRLA, EOMI EARS: Ext canals without abnormality OROPHARYNX: no oral lesions noted, posterior pharynx clear NECK: Supple, no adenopathy LUNGS: Good inspiratory effort with scattered crackles and coarse rhonchi with occasional expiratory wheeze bilaterally. Tachypnea is noted. SpO2<92> CARDIOVASCULAR: Regular rate and rhythm without noted murmurs, no JVD or lower extremity edema. ABDOMEN: Soft, non-tender, non-distended with bowel sounds. MUSCULOSKELETAL: No tenderness, deformities, or effusions noted on gross inspection. EXTREMITIES: No cyanosis, clubbing or edema. SKIN: Inspection of the skin reveals no rashes NEUROLOGIC: Alert and oriented x 4. Strength and sensation to light touch were grossly intact x 4. Course Course Course Narrative: 2340: 66-year-old male with history and clinical presentation most consistent with COPD exacerbation/bronchitis. Albuterol, steroids, lactic acid/blood cultures as well as levofloxacin are ordered. Review of all investigations consistent with COPD exacerbation, patient has been noted to be dropping his oxygenation to 85% and has been placed on 1-2 L via nasal cannula. I discussed case with the inpatient hospitalist who accepts admission. MDM - SOB/Dyspnea Lab Data Result diagrams: 12/29/21 21:42 12/29/21 21:42 Labs: Lab Results 12/29/21 12/29/21 12/29/21 Range/Units 21:42 21:42 21:42 WBC 7.9 (4.8-10.8) X10*3/uL RBC 3.81 L (4.60-5.80) X10*6/uL Hgb 13.3 L (14.0-18.0) g/dl Hct 38.2 L (42.0-52.0) % MCV 100.3 H (80.0-98.0) fL MCH 34.9 H (27.0-33.0) pg MCHC 34.8 (31.0-36.0) g/dl RDW 11.9 (11.0-16.0) % Plt Count 243 (160-400) X10*3/uL MPV 10.3 (9.4-12.4) fL Immature Gran % (Auto) 0.6 H (0.0-0.4) % Neut % (Auto) 55.5 (45-73) % Lymph % (Auto) 28.1 (20-40) % [place] % (Auto) 10.7 (2-11) % Eos % (Auto) 4.6 H (0-4) % Baso % (Auto) 0.5 (0-2) % Lymph # (Auto) 2.2 (1.2-4.9) X10*3/uL [place] # (Auto) 0.8 (0.1-1.2) X10*3/uL Eos # (Auto) 0.4 (0.0-0.4) X10*3/uL Baso # (Auto) 0.0 (0.0-0.2) X10*3/uL Abs Immat Gran (auto) 0.05 H (0.00-0.03) X10*3/uL Absolute Neuts (auto) 4.4 (2.0-8.3) x10*3/uL Absolute Nucleated RBC 0.000 (0.0-0.012) X10*3/uL Nucleated RBC % (auto) 0.0 (0.0-0.2) /100WBC VBG pH (7.32-7.43) VBG pCO2 mmHg VBG pO2 mmHg VBG HCO3 (22-26) mmol/L VBG O2 Saturation % VBG Base Excess mmol/L Sodium 142 (135-145) mmol/L Potassium 3.8 (3.3-5.1) mmol/L Chloride 105 (96-108) mmol/L Carbon Dioxide 22 (22-29) mmol/L Anion Gap 19 (12-20) BUN 14 (9-16) mg/dL Creatinine 0.91 (0.5-1.4) mg/dL Estim Creat Clear Calc 77.6 Estimated GFR > 60 Random Glucose 95 (60-115) mg/dL Lactic Acid (0.5-2.0) mmol/L Calcium 8.5 (8.4-10.2) mg/dL Troponin I High Sens 4.2 (<3.5-35.0) ng/L B-Natriuretic Peptide 69 (<100) pg/mL COVID-19 ([facility]) (Negative) COVID-19 Clin Com 12/29/21 12/30/21 12/30/21 Range/Units 21:42 00:13 00:31 WBC (4.8-10.8) X10*3/uL RBC (4.60-5.80) X10*6/uL Hgb (14.0-18.0) g/dl Hct (42.0-52.0) % MCV (80.0-98.0) fL MCH (27.0-33.0) pg MCHC (31.0-36.0) g/dl RDW (11.0-16.0) % Plt Count (160-400) X10*3/uL MPV (9.4-12.4) fL Immature Gran % (Auto) (0.0-0.4) % Neut % (Auto) (45-73) % Lymph % (Auto) (20-40) % [place] % (Auto) (2-11) % Eos % (Auto) (0-4) % Baso % (Auto) (0-2) % Lymph # (Auto) (1.2-4.9) X10*3/uL [place] # (Auto) (0.1-1.2) X10*3/uL Eos # (Auto) (0.0-0.4) X10*3/uL Baso # (Auto) (0.0-0.2) X10*3/uL Abs Immat Gran (auto) (0.00-0.03) X10*3/uL Absolute Neuts (auto) (2.0-8.3) x10*3/uL Absolute Nucleated RBC (0.0-0.012) X10*3/uL Nucleated RBC % (auto) (0.0-0.2) /100WBC VBG pH 7.37 (7.32-7.43) VBG pCO2 41 mmHg VBG pO2 58 mmHg VBG HCO3 24 (22-26) mmol/L VBG O2 Saturation 84.0 % VBG Base Excess -1.1 mmol/L Sodium (135-145) mmol/L Potassium (3.3-5.1) mmol/L Chloride (96-108) mmol/L Carbon Dioxide (22-29) mmol/L Anion Gap (12-20) BUN (9-16) mg/dL Creatinine (0.5-1.4) mg/dL Estim Creat Clear Calc Estimated GFR Random Glucose (60-115) mg/dL Lactic Acid 2.5 H* (0.5-2.0) mmol/L Calcium (8.4-10.2) mg/dL Troponin I High Sens (<3.5-35.0) ng/L B-Natriuretic Peptide (<100) pg/mL COVID-19 ([facility]) Negative (Negative) COVID-19 Clin Com See Note Critical Care Time Critical Care Time Critical Care Time: Yes Total Critical Care Time: 30 Attestation: I personally attest to this time spent taking care of the patient. Discharge Plan Discharge Clinical Impression: COPD exacerbation, Hypoxia Patient Disposition: Admitted As Inpatient Prescriptions: No Action multivitamin Tablet 1 tab PO DAILY losartan 50 mg tablet 1 tab PO DAILY atorvastatin 10 mg tablet 1 tab PO DAILY omeprazole 20 mg Capsule,Delayed Release(Dr/Ec) 20 mg PO DAILY doxazosin 2 mg tablet 1 tab PO BEDTIME prednisone 20 mg tablet 40 mg PO DAILY Qty: 8 0RF albuterol sulfate [Proventil HFA] 90 mcg/actuation HFA aerosol inhaler 2 puff inhalation QID PRN (Reason: shortness of breath or wheezing) Qty: 8.5 2RF (DME) Aerochamber MV Spacer See Rx Instructions .Route Qty: 10 0RF Rx Instructions: As directed nicotine (polacrilex) 2 mg gum 2 mg buccal Q2H PRN (Reason: nicotine cravings) Qty: 100 0RF
[2021-12-29 23:55] VITALS: BP 161/88; PULSE 71; RESP 20; TEMP 36.9; O2SAT 94
[2021-12-30] VITALS (13 sets, daily range): BP systolic 127–176; BP diastolic 73–85; PULSE 72–126; RESP 16–24; TEMP 36.6; O2SAT 93–97
--- NOTE | 2021-12-30 00:17 | PC.NURSE ---
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 Labs drawn and sent as ordered.
[2021-12-30] MEDS: methylPREDNISolone Sod Succ 125 MG/2 ML VIAL IVPUSH (00:18)
[2021-12-30] MEDS: Albuterol Sulfate 7.5 MG, Albuterol Sulfate (0.083%) 2.5 MG 10 MG INHALE (00:20)
[2021-12-30 00:38] LABS: VBG Base Excess -1.1 mmol/L; VBG HCO3 24 mmol/L (22-26); VBG pCO2 41 mmHg; VBG pH 7.37 (7.32-7.43); VBG pO2 58 mmHg
[2021-12-30 00:41] LABS: Venous Blood Gas Refer to POC result
[2021-12-30 00:49] LABS: Lactic Acid 2.5 mmol/L (0.5-2.0)
[2021-12-30] MEDS: Albuterol/Iprat 2.5/0.5MG 3 ML AMPUL.NEB INHALE ×5 (02:10→19:11)
[2021-12-30] MEDS: 0.9 % Sodium Chloride 1,000 ML 999 ML IV (02:12)
--- NOTE | 2021-12-30 02:23 | P.HPHOSP_ITS ---
History of Present Illness Date of Service: 12/30/21 Chief Complaint: SOB 66-year-old male with past medical history of COPD, HLD, HTN, presents to the hospital with complaints of shortness of breath, cough, sputum production for the past 2 days. Patient reports chills with no fever, no chest pain, no palpitations, no abdominal pain, no nausea or vomiting, no diarrhea constipation, no urinary symptoms and no lower extremity edema. No recent sick contacts and no recent travel. On arrival to the ED patient found to have a heart rate of 106, with respiratory rate of 26, blood pressure 178/84, satting 92% dropping to 84-86 % on ambulation Labs are significant for WBC count of 5.4, hemoglobin 12.7, hematocrit 37.2 point lactic acid of 2.5 that improved with IV fluids, chest x-ray unremarkable with no evidence of pneumonia Review of Systems Review of Systems: Yes all other systems are reviewed and are negative [facility] Medical History COPD exacerbation GERD (gastroesophageal reflux disease) HLD (hyperlipidemia) Hypertension Hypertension Surgical History History of appendectomy Social History Household Members: None Housing: Apartment Do you presently have visiting nurse or other home services: No Alcohol intake: current Alcohol intake frequency: 0-2 drinks per day Alcohol type: beer Patient Tobacco Use Status: Current someday Tobacco user Tobacco use type: Cigarette Smoked in Last 30 Days: Yes e-Cigarette/Vaping Use: Currently Using Second Hand Smoke Exposure: No Use of substances other than those prescribed or required for medical reasons: No Advance Directives: No Advance Directives Information Provided: No Current occupational status: employed Meds Allergies Allergy/AdvReac Type Severity Reaction Status Date / Time No Known Allergies Allergy Verified 01/31/21 16:37 Home Medications Medication Instructions Recorded Confirmed Last Taken Type atorvastatin 10 mg tablet 1 tab PO DAILY 01/31/21 11/30/21 11/30/21 History doxazosin 2 mg tablet 1 tab PO BEDTIME 01/31/21 11/30/21 11/29/21 History losartan 50 mg tablet 1 tab PO DAILY 01/31/21 11/30/21 11/30/21 History multivitamin 1 tab PO DAILY 01/31/21 11/30/21 11/30/21 History omeprazole 20 mg capsule,delayed 20 mg PO DAILY 01/31/21 11/30/21 11/30/21 History release Physical Exam Vital Signs and Narrative: Vital Signs: Last Vital Signs Temp 97.9 F 12/30/21 01:39 Pulse 86 12/30/21 01:39 Resp 16 12/30/21 01:39 BP 153/73 H 12/30/21 01:39 Pulse Ox 94 12/29/21 23:55 O2 Del Method 12/30/21 01:39 BMI result Body Mass Index 23.6 Const: General: cooperative and no acute distress Orientation/consciousness: patient oriented x3 Eyes: General: appearance normal, both eyes and all related structures Resp: Other: Decreased breath sounds Effort & Inspection: normal respiratory effort Cardio: Rate: regular rate Rhythm: regular rhythm GI: Palpation (GI): Soft to palpation Auscultation: normal bowel sounds Skin: General skin exam: no rashes or lesions noted Neuro: General: patient oriented x3 Cognition (Neuro): normal cognition Extrem: General: Yes normal to inspection and Yes no pedal edema Results Labs CBC and Chem 7: 12/30/21 03:09 12/30/21 03:09 Labs: Laboratory Results - last 24 hr 12/29/21 12/29/21 12/29/21 21:42 21:42 21:42 MCV 100.3 H MCH 34.9 H MCHC 34.8 RDW 11.9 Plt Count 243 MPV 10.3 Immature Gran % (Auto) 0.6 H Neut % (Auto) 55.5 Lymph % (Auto) 28.1 [place] % (Auto) 10.7 Eos % (Auto) 4.6 H Baso % (Auto) 0.5 Lymph # (Auto) 2.2 [place] # (Auto) 0.8 Eos # (Auto) 0.4 Baso # (Auto) 0.0 Abs Immat Gran (auto) 0.05 H Absolute Neuts (auto) 4.4 Absolute Nucleated RBC 0.000 Nucleated RBC % (auto) 0.0 VBG pH VBG pCO2 VBG pO2 VBG HCO3 VBG O2 Saturation VBG Base Excess Anion Gap 19 Estim Creat Clear Calc 77.6 Estimated GFR > 60 Random Glucose 95 Lactic Acid Calcium 8.5 B-Natriuretic Peptide 69 COVID-19 ([facility]) COVID-19 Clin Com 12/29/21 12/30/21 12/30/21 21:42 00:13 00:31 MCV MCH MCHC RDW Plt Count MPV Immature Gran % (Auto) Neut % (Auto) Lymph % (Auto) [place] % (Auto) Eos % (Auto) Baso % (Auto) Lymph # (Auto) [place] # (Auto) Eos # (Auto) Baso # (Auto) Abs Immat Gran (auto) Absolute Neuts (auto) Absolute Nucleated RBC Nucleated RBC % (auto) VBG pH 7.37 VBG pCO2 41 VBG pO2 58 VBG HCO3 24 VBG O2 Saturation 84.0 VBG Base Excess -1.1 Anion Gap Estim Creat Clear Calc Estimated GFR Random Glucose Lactic Acid 2.5 H* Calcium B-Natriuretic Peptide COVID-19 ([facility]) Negative COVID-19 Clin Com See Note Imaging Radiologist's Impressions: Impressions Chest X-Ray 12/29/21 21:50 IMPRESSION: Unremarkable examination. Assessment and Plan (1) COPD exacerbation: Status: Acute (2) Acute respiratory failure with hypoxia: Status: Acute Plan 66-year-old male with past medical history of COPD presents to the hospital with hypoxia found to have COPD exacerbation # acute COPD exacerbation - has cough, increased sputum production, dyspnea - no evidence of pneumonia - will treat with Solu-Medrol, DuoNeb p.r.n. as well as scheduled - follow respiratory status - no COVID-19 infection # acute hypoxic respiratory failure - likely secondary to COPD exacerbation - no evidence of pneumonia - continue O2 support if required - satting 92% at rest # HLD - continue statin # HTN - Continue antihypertensive - stable DVT prophylaxis: Lovenox Given acute exacerbation of COPD as well as hypoxia patient require minimal 2 night hospital stay for further management and monitoring Quality Stroke Does the patient have a stroke diagnosis?: No VTE Prior VTE?: No VTE Risk Level:: Medical - moderate - high VTE Device Contraindication: Treatment Not Indicated VTE Drug Contraindication: N/A - Med Ordered
[2021-12-30 02:34] LABS: Reflex Lactate? Lactic Acid Added
[2021-12-30 03:14] LABS: MANUAL DIFF FLAG NO
[2021-12-30 03:15] LABS: Basophils Percent Auto 0.2 % (0-2); Eosinophils Percent Auto 0.7 % (0-4); Hematocrit 37.2 % (42.0-52.0); Hemoglobin 12.7 g/dl (14.0-18.0); Imm Gran Abs Auto 0.03 X10*3/uL (0.00-0.03); Imm Gran Pct Auto 0.6 % (0.0-0.4); Lymphocytes Absolute Auto 0.8 X10*3/uL (1.2-4.9); Lymphocytes Percent Auto 15.1 % (20-40); Mean Corpuscular HGB Conc 34.1 g/dl (31.0-36.0); Mean Corpuscular Volume 99.7 fL (80.0-98.0); Mean Platelet Volume 10.5 fL (9.4-12.4); Monocytes Absolute Auto 0.2 X10*3/uL (0.1-1.2); Monocytes Percent Auto 3.6 % (2-11); Neutrophils Absolute Auto 4.3 x10*3/uL (2.0-8.3); Neutrophils Percent Auto 79.8 % (45-73); Platelet Count 200 X10*3/uL (160-400); Red Blood Count 3.73 X10*6/uL (4.60-5.80); Red Cell Distribution Width 11.9 % (11.0-16.0); White Blood Count 5.4 X10*3/uL (4.8-10.8)
[2021-12-30 03:27] LABS: ~Lactic Acid-LAB USE ONLY 1.5 mmol/L (0.5-2.0)
[2021-12-30 03:31] LABS: Anion Gap 15 (12-20); Blood Urea Nitrogen 13 mg/dL (9-16); Calcium 8.2 mg/dL (8.4-10.2); Carbon Dioxide 23 mmol/L (22-29); Chloride 107 mmol/L (96-108); Creatinine Clr Calc Pharmacy 87.2; Estimated Glomerular Filt Rate > 60; Glucose Random 154 mg/dL (60-115); Potassium 3.5 mmol/L (3.3-5.1); Sodium 141 mmol/L (135-145)
[2021-12-30] MEDS: Enoxaparin Sodium 40 MG/0.4 ML SYRINGE SUBCUT (07:09)
[2021-12-30 09:08] LABS: Appearance Urine Clear; Color Urine Yellow; Glucose Urine UA 100 mg/dL (Negative); Leukocyte Esterase Urine Negative (Negative); Nitrite Urine Negative (Negative); PH 5.5 (5.0-9.0); Specific Gravity - Urine 1.015 (1.005-1.025); Urine Blood Negative (Negative); Urine Ketones Negative (Negative); Urine Protein Negative (Neg-Trace)
[2021-12-30] MEDS: methylPREDNISolone Sod Succ 40 MG/ML VIAL IVPUSH ×2 (09:27→22:58)
--- NOTE | 2021-12-30 09:27 | PHA.MEDREC ---
Pharmacy Consult ? Medication Reconciliation Pharmacy has completed the medication reconciliation.
[2021-12-30] MEDS: 0.9 % Sodium Chloride Flush 3 ML SYRINGE IVFLUSH ×3 (09:28→23:34)
--- NOTE | 2021-12-30 09:38 | PM.EVENT ---
Event Note Date of Service: 12/30/21 Event Note: patient admitted this morning due to shortness of breath, history and physical reviewed at present patient is feeling better, denies chest pain, no palpitations, no tremors denies prolonged immobilization tele monitor shows sinus tachycardia lungs diminished breath sounds extremities no edema chest x-ray no interval assessment and plan acute COPD exacerbation continue current dose of IV steroids updraft treatment add as needed cough medication, wean oxygen patient not on home O2 monitor tachycardia if persists will change to soap on ox resume all home medications
[2021-12-30] MEDS: Omeprazole 20 MG CAPSULE.DR PO (09:47)
[2021-12-30] MEDS: Atorvastatin Calcium 10 MG TABLET PO (09:47)
[2021-12-30] MEDS: Losartan Potassium 50 MG TABLET PO (09:47)
[2021-12-30] MEDS: Multivitamin TABLET 1 TAB PO (09:47)
--- NOTE | 2021-12-30 11:29 | PC.NURSE ---
Pt alert/oriented. Ambulatory to bathroom ad malika. Tolerates okay, able to return to baseline. Tachy with HR 110s-120 with activity. Sat 91% on room air, 93% on 2lpm via nc.
--- NOTE | 2021-12-30 12:50 | MHC.CM.PN ---
IMM ADDRESSED, WHITE COPY TO PATIENT, YELLOW TO CHART PATIENT LIVES ALONE INDEPENDENT/EMPLOYED NO DME OR HOME SERVICES HCP/COPY REQUESTED ANNALISA PENA J&Ana M PCP: [facility] WILL TRANSPORT D/C PLAN: HOME SELF-CARE
[2021-12-30] MEDS: Midazolam HCl/PF 2 MG/2 ML VIAL IVPUSH (15:36)
[2021-12-30] MEDS: Thiamine HCL 100 MG TABLET PO (15:36)
[2021-12-30] MEDS: Folic Acid 1 MG TABLET PO (15:36)
[2021-12-30 16:26] LABS: D Dimer High Sensitivity 257 NG/ML
--- NOTE | 2021-12-30 16:27 | PC.NURSE ---
New order obtained for Versed, pt now noted with HR 75-100. Snoring this time. sat 95% on 2lpm via nc. Scheduled updraft at this time.
[2021-12-31] VITALS (9 sets, daily range): BP systolic 132–166; BP diastolic 72–82; PULSE 68–117; RESP 16–20; TEMP 36.5–36.6; O2SAT 88–96; BMI 25.2
[2021-12-31] MEDS: Enoxaparin Sodium 40 MG/0.4 ML SYRINGE SUBCUT (06:14)
[2021-12-31] MEDS: Omeprazole 20 MG CAPSULE.DR PO (06:14)
[2021-12-31] MEDS: Albuterol/Iprat 2.5/0.5MG 3 ML AMPUL.NEB INHALE ×3 (07:33→19:10)
[2021-12-31] MEDS: Folic Acid 1 MG TABLET PO (09:07)
[2021-12-31] MEDS: methylPREDNISolone Sod Succ 40 MG/ML VIAL IVPUSH ×3 (09:07→22:32)
[2021-12-31] MEDS: Multivitamin TABLET 1 TAB PO (09:07)
[2021-12-31] MEDS: Doxazosin Mesylate 2 MG TABLET PO (09:07)
[2021-12-31] MEDS: Losartan Potassium 50 MG TABLET PO (09:07)
[2021-12-31] MEDS: Atorvastatin Calcium 10 MG TABLET PO (09:07)
[2021-12-31] MEDS: Thiamine HCL 100 MG TABLET PO (09:07)
[2021-12-31] MEDS: 0.9 % Sodium Chloride Flush 3 ML SYRINGE IVFLUSH ×3 (09:07→22:53)
--- NOTE | 2021-12-31 14:30 | MHC.CM.PN ---
EMR REVIEWED, PER HOSPITALIST PT TO CONT ON IV SOLUMEDROL, NOT READY FOR D/C, CM WILL CONT TO FOLLOW D/C NEEDS.
--- NOTE | 2021-12-31 14:53 | P.PNIM_ITS ---
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 Neck no JVD. CVS regular rate rhythm, Respiratory lungs bilateral expiratory wheeze, no use of accessory muscles, no respiratory distress Gastrointestinal abdomen soft, nontender, bowel sounds audible,no guarding , no rigidity. Extremities no edema. Neuro nonfocal Skin no rash psych appropriate affect Objective Data Active Medications Acetaminophen (Acetaminophen 325 Mg Tablet) 650 mg PO Q6H PRN PRN Reason: Pain, Mild (Pain Scale 1-3) Albuterol/Ipratropium (Albuterol/Iprat 2.5/0.5mg 3 Ml Ampul.Neb) 3 ml INHALE RQ4H PRN PRN Reason: Shortness of Breath/Wheezing Albuterol/Ipratropium (Albuterol/Iprat 2.5/0.5mg 3 Ml Ampul.Neb) 3 ml INHALE RQ4H WHILE AWAKE [facility] Last Admin: 12/31/21 12:33 Dose: Not Given Documented By: ИВАН Non-Admin Reason: pt refused Atorvastatin Calcium (Atorvastatin Calcium 10 Mg Tablet) 10 mg PO DAILY [facility] Last Admin: 12/31/21 09:07 Dose: 10 mg Documented By: NORMA Docusate Sodium (Docusate Sodium 100 Mg Capsule) 100 mg PO DAILY PRN PRN Reason: Constipation Doxazosin Mesylate (Doxazosin Mesylate 2 Mg Tablet) 2 mg PO DAILY [facility]; Protocol Last Admin: 12/31/21 09:07 Dose: 2 mg Documented By: NORMA Enoxaparin Sodium (Enoxaparin Sodium 40 Mg/0.4 Ml Syringe) 40 mg SUBCUT Q24H [facility] Last Admin: 12/31/21 06:14 Dose: 40 mg Documented By: RUSSELL Folic Acid (Folic Acid 1 Mg Tablet) 1 mg PO DAILY [facility] Last Admin: 12/31/21 09:07 Dose: 1 mg Documented By: NORMA Losartan Potassium (Losartan Potassium 50 Mg Tablet) 50 mg PO DAILY [facility]; Protocol Last Admin: 12/31/21 09:07 Dose: 50 mg Documented By: NORMA Methylprednisolone Sodium Succinate (Methylprednisolone Sod Succ 40 Mg/Ml Vial) 40 mg IVPUSH Q12H [facility] Last Admin: 12/31/21 09:07 Dose: 40 mg Documented By: NORMA Multivitamins/Vitamin C (Multivitamin Tablet) 1 tab PO DAILY [facility] Last Admin: 12/31/21 09:07 Dose: 1 tab Documented By: NORMA Omeprazole (Omeprazole 20 Mg Capsule.Dr) 20 mg PO DAILY@0630 [facility] Last Admin: 12/31/21 06:14 Dose: 20 mg Documented By: RUSSELL Ondansetron HCl (Ondansetron Hcl 4 Mg/2 Ml Vial) 4 mg IVPUSH Q8H PRN PRN Reason: Nausea and Vomiting Pharmacy Consult (Consult Rx Perform Med Rec) 1 each MISCELLANE ONCE PRN PRN Reason: Consult order Sodium Chloride (0.9 % Sodium Chloride Flush 3 Ml Syringe) 3 ml IVFLUSH QSHIFT [facility] Last Admin: 12/31/21 09:07 Dose: 3 ml Documented By: NORMA Thiamine HCl (Thiamine Hcl 100 Mg Tablet) 100 mg PO DAILY [facility] Last Admin: 12/31/21 09:07 Dose: 100 mg Documented By: NORMA Labs CBC & Chem 7: 12/30/21 03:09 12/30/21 03:09 Labs: Laboratory Results - last 24 hr 12/30/21 15:41 D-Dimer High Sensitivty 257 Microbiology Microbiology Results: Microbiology 12/30/21 00:12 Blood Culture - Preliminary Blood - Venous No growth after 24 hours. 12/30/21 00:12 Blood Culture - Preliminary Blood - Venous No growth after 24 hours. 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 as well as scheduled, will add breo # acute hypoxic respiratory failure - likely secondary to COPD exacerbation, currently on 2 L of oxygen finger oximetry 93%, not on home O2 will gradually wean oxygen and remain hypoxic will obtain home O2 eval # tachycardia resolved likely was due to alcohol withdrawal/ COPD exacerbation/hypoxia, D-dimer 257 no further work up # tobacco use disorder counseling done patient declined patch # HLD - continue statin # HTN - Continue antihypertensive DVT prophylaxis: Lovenox Given acute exacerbation of COPD as well as hypoxia patient will require continued inpatient hospitalization for steroids and oxygen support Quality Stroke Does the patient have a stroke diagnosis?: No VTE Prior VTE?: No VTE Risk Level:: Medical - moderate - high VTE Device Contraindication: Treatment Not Indicated VTE Drug Contraindication: N/A - Med Ordered
--- NOTE | 2021-12-31 22:58 | PC.NURSE ---
Took over care of patient at 2300. See shift assessment for complete assessment. Pt denies pain/discomfort. Ambulates independently with a steady gait. IV flushes without difficulties. Pt in bed watching tv with call bentley within reach. Will continue to monitor.
[2022-01-01] VITALS (7 sets, daily range): BP systolic 142–168; BP diastolic 68–88; PULSE 62–136; RESP 16–18; TEMP 36.3–36.8; O2SAT 84–98
[2022-01-01] MEDS: Enoxaparin Sodium 40 MG/0.4 ML SYRINGE SUBCUT (05:43)
[2022-01-01] MEDS: Omeprazole 20 MG CAPSULE.DR PO (05:43)
[2022-01-01] MEDS: methylPREDNISolone Sod Succ 40 MG/ML VIAL IVPUSH (07:49)
[2022-01-01] MEDS: Multivitamin TABLET 1 TAB PO (07:50)
[2022-01-01] MEDS: Folic Acid 1 MG TABLET PO (07:50)
[2022-01-01] MEDS: Losartan Potassium 50 MG TABLET PO (07:50)
[2022-01-01] MEDS: Thiamine HCL 100 MG TABLET PO (07:50)
[2022-01-01] MEDS: Doxazosin Mesylate 2 MG TABLET PO (07:50)
[2022-01-01] MEDS: Atorvastatin Calcium 10 MG TABLET PO (07:50)
[2022-01-01] MEDS: 0.9 % Sodium Chloride Flush 3 ML SYRINGE IVFLUSH (07:50)
[2022-01-01] MEDS: Albuterol/Iprat 2.5/0.5MG 3 ML AMPUL.NEB INHALE ×3 (08:00→15:45)
[2022-01-01] MEDS: Fluticasone/Vilanterol 100/25 BLST.W.DEV 1 PUFF INHALE (08:00)
[2022-01-01] MEDS: predniSONE 20 MG TABLET 40 MG PO (12:48)
--- NOTE | 2022-01-01 14:57 | MHC.CM.PN ---
Home - self care Patient has new O2 arranged RN aware of plan.
--- NOTE | 2022-01-01 15:44 | P.DS_ITS ---
DS: Providers Provider Date of Service: 01/01/22 Date of admission: 12/30/21 02:21 Primary care physician: Feliberto Britt MD DS: Diagnosis Discharge Diagnosis (1) Acute respiratory failure with hypoxia: Status: Acute (2) COPD exacerbation: Status: Acute (3) Hypoxia: Status: Acute (4) Hypertension: Status: Acute (5) HLD (hyperlipidemia): Status: Acute DS: Summary Hospital Course Hospital Course: History of presenting illness Chief Complaint: SOB 66-year-old male with past medical history of COPD, HLD, HTN, presents to the hospital with complaints of shortness of breath, cough, sputum production for the past 2 days.? Patient reports chills with no fever, no chest pain, no palpitations, no abdominal pain, no nausea or vomiting, no diarrhea constipation, no urinary symptoms and no lower extremity edema.? No recent sick contacts and no recent travel. On arrival to the ED patient found to have a heart rate of 106, with respiratory rate of 26, blood pressure 178/84, satting 92% dropping to 84-86 % on ambulation Labs are significant for WBC count of 5.4, hemoglobin 12.7, hematocrit 37.2 point lactic acid of 2.5 that improved with IV fluids, chest x-ray unremarkable with no evidence of pneumonia. Hospital course 66-year-old male with past medical history of chronic smoking presented to the hospital with hypoxia found to have COPD exacerbation Acute hypoxic respiratory failure likely due to acute COPD exacerbation, patient has not been diagnosed to have COPD but has been smoking for 50 years, recently cut down to 5 cigarettes a day admitted due to hypoxia and shortness of breath chest x-ray showed no acute infiltrate patient treated with IV steroids scheduled and as needed updraft treatment patient responded well to above treatment shortness of breath significantly improved patient is now being discharged home on tapering dose of prednisone, Breo, albuterol and Spiriva s rhonda patient remain hypoxic home O2 eval was obtained patient qualifies 1 L of oxygen at rest and 4 L of oxygen with ambulation patient has been instructed to have outpatient follow-up with pulmonology to proceed with outpatient testing for COPD In regard to tobacco use disorder patient is being discharged home on nicotine patch with strong recommendation for complete abstinence from smoking Patient was noted to have tachycardia that has resolved was likely due to alcohol withdrawal, COPD exacerbation and hypoxia his D-dimer was 257 he has been recommended to cut back on alcohol HLD- continue statin HTN- Continue antihypertensive Time Spent with Patient Time attestation: Total time spent providing and/or coordinating discharge services: Discharge coordination time: Greater than 30 minutes Quality: Safe Use of Opioids Does Pt have an Active Cancer Diagnosis on the Problem List?: No Quality: Stroke Does the patient have a stroke diagnosis?: No Physical Exam Vital Signs: Vital Signs: Last Vital Signs Temp 98.3 F 01/01/22 11:28 Pulse 101 H 01/01/22 11:28 Resp 16 01/01/22 11:28 BP 168/82 H 01/01/22 11:28 Pulse Ox 92 01/01/22 11:28 O2 Del Method 01/01/22 11:28 O2 Flow Rate 2 01/01/22 11:28 BMI result Body Mass Index 25.2 Const: Other: General? awake, alert in no acute distress.? Neck no JVD. CVS? regular rate rhythm, Respiratory lungs?clear to auscultation few expiratory wheeze, no use of accessory muscles, no respiratory distress Gastrointestinal abdomen soft, nontender, bowel sounds audible,no guarding , no rigidity. Extremities no? edema. Neuro nonfocal Skin no rash psych appropriate affect DS: Data Data Completed and Pending Labs on day of discharge: Preliminary micro results at discharge 12/30/21 00:12 Blood Culture - Preliminary Blood - Venous No growth after 48 hours. 12/30/21 00:12 Blood Culture - Preliminary Blood - Venous No growth after 48 hours. Discharge Plan Discharge Patient Disposition: Home, Self-Care Discharge Diagnosis: Acute hypoxic respiratory failure COPD exacerbation Referrals: Feliberto Britt MD [Primary Care Provider] - 1 Week Discharge Medications: New fluticasone furoate-vilanterol [Breo Ellipta] 100-25 mcg/dose Blister With Device 1 ea inhalation RDAILY Qty: 60 0RF Spiriva with HandiHaler 18 mcg capsule, w/inhalation device 1 cap inhalation DAILY Qty: 30 0RF Rx Instructions: puncture 1 cap using device; one dose = 2 inhalations prednisone 10 mg tablet See Taper PO DAILY Qty: 30 0RF Taper: Prednisone 40 mg daily for 3 Days and 0 Hour 30 mg daily for 3 Days and 0 Hour 20 mg daily for 3 Days and 0 Hour 10 mg daily for 3 Days and 0 Hour nicotine 14 mg/24 hr patch 24 hour 1 patch transdermal Q24H Qty: 28 0RF Continued multivitamin Tablet 1 tab PO DAILY losartan 50 mg tablet 1 tab PO DAILY atorvastatin 10 mg tablet 1 tab PO DAILY omeprazole 20 mg Capsule,Delayed Release(Dr/Ec) 20 mg PO DAILY@0630 doxazosin 2 mg tablet 1 tab PO DAILY albuterol sulfate [Proventil HFA] 90 mcg/actuation HFA aerosol inhaler 2 puff inhalation QID PRN (Reason: shortness of breath or wheezing) Qty: 8.5 2RF (DME) Aerochamber MV Spacer See Rx Instructions .Route Qty: 10 0RF Rx Instructions: As directed Discharge Orders: Discharge Order (Routine); Ordered 01/01/22 Ordered By: Terri Rosas Diet: Low fat, low cholesterol Activity on Discharge: As tolerated Stand Alone Forms: Patient Portal Discharge page Care Plan Goals: Undiagnosed COPD, strongly advised to abstain from smoking use nicotine patch Patient diagnosed to have low oxygen at rest and with ambulation therefore being discharged home with 1 L of oxygen at rest and 4 L of oxygen with ambulation recommend to take prednisone taper as directed, use 2 puffs of albuterol 4 times a day for next 1 week and then as needed use 3-0 Ellipta 1 puff daily and Spiriva 1 puff daily recommend outpatient follow-up with pulmonology for pulmonary function test Strongly recommend to abstain from alcohol Health Concerns: Hypertension/hyperlipidemia/tobacco use/ Plan of Treatment: Outpatient follow-up with primary care physician in 7-10 days, call pulmonology at [facility] Dr. Diaz for appointment in next 1 week for outpatient pulmonary testing for COPD Assessment: As per discharge summary
== END 2022-01-01 16:10 | disposition home or self-care (01) | DRG 190 ==
LOC: HO.ED 12-30 02:17 → HO.EDOVER 12-30 02:25 → HO.S3 12-30 19:26
PROVIDERS: Admitting Provider Internal Medicine; Emergency Provider Student in an Organized Health Care Education/Training Program; PCP Internal Medicine; Visit Provider Hospitalist
DX: J44.1 Chronic obstructive pulmonary disease with (acute) exacerbation (principal); J96.01 Acute respiratory failure with hypoxia; F10.239 Alcohol dependence with withdrawal, unspecified; E78.5 Hyperlipidemia, unspecified; K21.9 Gastro-esophageal reflux disease without esophagitis; I10 Essential (primary) hypertension; Z20.822 Contact with and (suspected) exposure to COVID-19; Z87.891 Personal history of nicotine dependence; Z79.899 Other long term (current) drug therapy
CPT/HCPCS: 36415; 71045; 80048; 81003; 82803; 83605; 83880; 84484; 85025; 85379; 87040; 87635; 93005; 94640; 99285; J1650; J2250; J2920; J2930

== ENCOUNTER 2022-03-02 06:12 | Outpatient (REF) | payer MEDICARE, SELFPAY ==
[2022-03-02 06:19] LABS: MANUAL DIFF FLAG NO
[2022-03-02 07:36] LABS: Basophils Percent Auto 0.5 % (0-2); Eosinophils Absolute Auto 0.4 X10*3/uL (0.0-0.4); Hematocrit 39.6 % (42.0-52.0); Hemoglobin 13.3 g/dl (14.0-18.0); Imm Gran Abs Auto 0.05 X10*3/uL (0.00-0.03); Imm Gran Pct Auto 0.6 % (0.0-0.4); Lymphocytes Absolute Auto 2.5 X10*3/uL (1.2-4.9); Lymphocytes Percent Auto 27.9 % (20-40); Mean Corpuscular HGB Conc 33.6 g/dl (31.0-36.0); Mean Corpuscular Hemoglobin 33.8 pg (27.0-33.0); Mean Corpuscular Volume 100.5 fL (80.0-98.0); Mean Platelet Volume 10.9 fL (9.4-12.4); Monocytes Absolute Auto 0.9 X10*3/uL (0.1-1.2); Monocytes Percent Auto 9.8 % (2-11); Neutrophils Percent Auto 56.2 % (45-73); Platelet Count 226 X10*3/uL (160-400); Red Blood Count 3.94 X10*6/uL (4.60-5.80); Red Cell Distribution Width 11.8 % (11.0-16.0); White Blood Count 8.8 X10*3/uL (4.8-10.8)
[2022-03-02 07:58] LABS: Alanine Aminotransferase 23 U/L (0-40); Albumin Level 4.2 g/dL (3.5-5.0); Alkaline Phosphatase 59 U/L (39-117); Anion Gap 17 (12-20); Aspartate Amino Transferase 22 U/L (5-37); Blood Urea Nitrogen 20 mg/dL (9-16); Calcium 9.1 mg/dL (8.4-10.2); Carbon Dioxide 24 mmol/L (22-29); Chloride 104 mmol/L (96-108); Cholesterol 167 mg/dL; Estimated Glomerular Filt Rate > 60; Glucose Fasting 99 mg/dL (60-99); HDL Cholesterol 60 mg/dL; Iron 143 mcg/dL (45-160); LDL Cholesterol Calculated 55 mg/dl; Percent Iron Saturation 44 % (15-50); Potassium 4.1 mmol/L (3.3-5.1); Sodium 141 mmol/L (135-145); Total Iron Binding Capacity 322 mcg/dL (228-428); Total Protein 6.8 g/dL (6.5-8.0); Triglycerides 264 mg/dL; Unsaturated Iron Binding 179 ug/dL
[2022-03-02 08:23] LABS: Prostate Specific Antigen 1.02 ng/mL (<0.05-4.0)
== END 2022-03-02 06:13 | disposition home or self-care (01) ==
LOC: HO.LAB 06:12
PROVIDERS: PCP Internal Medicine; Visit Provider Internal Medicine
DX: Z12.5 Encounter for screening for malignant neoplasm of prostate (principal); I10 Essential (primary) hypertension; E78.00 Pure hypercholesterolemia, unspecified; J44.9 Chronic obstructive pulmonary disease, unspecified; N40.0 Benign prostatic hyperplasia without lower urinary tract symptoms
CPT/HCPCS: 36415; 80053; 80061; 83540; 84153; 85025

== ENCOUNTER 2022-06-04 13:51 | Emergency (ER) | payer MEDICARE, SELFPAY ==
--- NOTE | ~2022-06-04 | XR_ITS ---
EXAMINATION: XR CHEST CLINICAL INFORMATION: Shortness of breath COMPARISON: Chest x-ray 12/29/2021 TECHNIQUE: Frontal view of the chest was obtained. 3:09 PM FINDINGS: No significant abnormality is noted involving the heart, lungs, mediastinum, bony thorax or soft tissues. XR/XR chest 1V IMPRESSION: Unremarkable examination.
[2022-06-04 14:08] VITALS: BP 143/77; PULSE 101; RESP 18; TEMP 35.9; O2SAT 94; BMI 24.3
--- NOTE | 2022-06-04 14:11 | ECG_ITS ---
Test Reason : sob Blood Pressure : / mmHG Vent. Rate : 090 BPM Atrial Rate : 090 BPM P-R Int : 138 ms QRS Dur : 100 ms QT Int : 358 ms P-R-T Axes : 085 082 064 degrees QTc Int : 437 ms Normal sinus rhythm Right atrial enlargement Borderline ECG When compared with ECG of 29-DEC-2021 21:36, No significant change was found Referred By: Eliana Alaniz Electronically Signed By:DARON BATES MD
--- NOTE | 2022-06-04 14:12 | ED_ITS ---
HPI - General Adult General Chief complaint: Dyspnea <RITCHIE Masterson - Last Filed: 06/04/22 18:11> Stated complaint: diff breathing <RITCHIE Masterson - Last Filed: 06/04/22 18:11> Time Seen by Provider: 06/04/22 18:17 <RITCHIE Masterson - Last Filed: 06/04/22 18:11> Source: patient <Jesica Garcias NP - Last Filed: 06/05/22 00:52> Mode of arrival: ambulatory <Jesica Garcias NP - Last Filed: 06/05/22 00:52> Limitations: no limitations <Jesica Garcias NP - Last Filed: 06/05/22 00:52> History of Present Illness HPI narrative: 66-year-old male with history of COPD, hypertension presents with coughing congestion for 3 days with difficulty breathing today unrelieved with home oxygen and nebulizer. No fevers, leg swelling, leg pain, chest pain. <Jesica Garcias NP - Last Filed: 06/05/22 00:52> Related Data Home medications: Home Medications Medication Instructions Recorded Confirmed atorvastatin 10 mg tablet 1 tab PO DAILY 01/31/21 12/30/21 doxazosin 2 mg tablet 1 tab PO DAILY 01/31/21 12/30/21 losartan 50 mg tablet 1 tab PO DAILY 01/31/21 12/30/21 multivitamin 1 tab PO DAILY 01/31/21 12/30/21 omeprazole 20 mg capsule,delayed 20 mg PO DAILY@0630 01/31/21 12/30/21 release Previous Rx's Medication Instructions Recorded albuterol sulfate 90 mcg/actuation 2 puff inhalation QID PRN 12/01/21 aerosol inhaler (Proventil HFA) shortness of breath or wheezing #8.5 grams inhalational spacing device #10 ea 12/01/21 (Aerochamber MV spacer) fluticasone furoate 100 1 ea inhalation RDAILY #60 ea 01/01/22 mcg-vilanterol 25 mcg/dose inhalation powder (Breo Ellipta) nicotine 14 mg/24 hr daily 1 patch transdermal Q24H #28 ea 01/01/22 transdermal patch prednisone 10 mg tablet See Taper PO DAILY #30 tabs 01/01/22 tiotropium bromide 18 mcg capsule 1 cap inhalation DAILY #30 01/01/22 with inhalation device (Spiriva inhalations with HandiHaler) doxycycline monohydrate 100 mg 100 mg PO BID #20 caps 06/04/22 capsule prednisone 20 mg tablet 60 mg PO DAILY 5 days #15 tabs 06/04/22 <RITCHIE Masterson - Last Filed: 06/04/22 18:11> Allergies/adverse reactions: Allergies Allergy/AdvReac Type Severity Reaction Status Date / Time No Known Allergies Allergy Verified 01/31/21 16:37 <RITCHIE Masterson - Last Filed: 06/04/22 18:11> Review of Systems Review of Systems: Yes all other systems are reviewed and are negative <Jesica Garcias NP - Last Filed: 06/05/22 00:52> Constitutional: Constitutional: Reports no additional constitutional complaints, Denies body ache(s), Denies chills, Denies fever(s), Denies headache(s) and Denies weakness <Jesica Garcias NP - Last Filed: 06/05/22 00:52> Eyes: Eyes: Reports no additional eye complaints and Denies change in vision <Jesica Garcias NP - Last Filed: 06/05/22 00:52> ENT: Reports system reviewed and no additional complaints, except as documented, Denies dizziness, Denies headache(s), Denies nasal congestion, Denies nasal discharge and Denies neck pain <Jesica Garcias NP - Last Filed: 06/05/22 00:52> Cardiovascular: Cardiovascular: Reports no additional cardiovascular complaints, Denies chest pain, Denies leg edema and Reports dyspnea <Jesica Garcias NP - Last Filed: 06/05/22 00:52> Respiratory: Respiratory: Reports no additional respiratory complaints, Reports cough, Reports dyspnea and Reports wheezing <Jesica Garcias NP - Last Filed: 06/05/22 00:52> Gastrointestinal: Gastrointestinal: Reports no additional gastrointestinal complaints, Denies abdominal pain, Denies diarrhea, Denies nausea and Denies vomiting <Jesica Garcias NP - Last Filed: 06/05/22 00:52> Genitourinary: Genitourinary: Denies urinary incontinence <Jesica Garcias NP - Last Filed: 06/05/22 00:52> Musculoskeletal: Musculoskeletal: Reports no additional musculoskeletal complaints, Denies back pain, Denies arthralgias, Denies joint swelling, Denies neck pain, Denies numbness and Denies tingling <Jesica Garcias NP - Last Filed: 06/05/22 00:52> Integumentary/Breasts: Skin/Breast: Reports system reviewed and no additional complaints, except as docu and Denies rash <Jesica Garcias NP - Last Filed: 06/05/22 00:52> Neurologic: Reports system reviewed and no additional complaints, except as documented, Denies dizziness, Denies headache(s), Denies numbness, Denies tingling and Denies weakness <Jesica Garcias NP - Last Filed: 06/05/22 00:52> Allergic/Immunologic: Allergic/Immunologic: Reports wheezing <Jesica Garcias NP - Last Filed: 06/05/22 00:52> [facility] Past Medical History Attestation statement: The following information was validated with the patient. <Jesica galaviz NP - Last Filed: 06/05/22 00:52> Source: old records reviewed and nursing notes reviewed <Jesica Garcias NP - Last Filed: 06/05/22 00:52> Medical History: Medical History COPD exacerbation GERD (gastroesophageal reflux disease) HLD (hyperlipidemia) Hypertension Hypertension <RITCHIE Masterson - Last Filed: 06/04/22 18:11> Surgical History: Surgical History History of appendectomy <RITCHIE Masterson - Last Filed: 06/04/22 18:11> Social History Social History: Social History Household Members: None Household Members Other:: daughter lives next door Housing: House Do you presently have visiting nurse or other home services: No Alcohol intake: current Alcohol intake frequency: 0-2 drinks per day Alcohol type: beer Patient Tobacco Use Status: Former Tobacco user Quit Date: 12/03/21 Tobacco use type: Cigarette Years Smoked: 40 e-Cigarette/Vaping Use: Never Used Second Hand Smoke Exposure: No Advance Directives: No service: No Current occupational status: employed <RITCHIE Masterson - Last Filed: 06/04/22 18:11> Physical Exam ED Vital Signs: Vital Signs - 24 hr 06/04/22 14:08 06/04/22 18:09 06/04/22 18:26 Temperature 96.7 F L 97.7 F Pulse Rate 101 H 100 81 Respiratory Rate 18 20 20 Blood Pressure 143/77 H 174/98 H Pulse Oximetry 94 92 Oxygen Delivery Method Room Air Room Air 06/04/22 20:09 06/04/22 20:12 Temperature 97.8 F Pulse Rate 74 72 Respiratory Rate 22 H 16 Blood Pressure 159/74 H Pulse Oximetry 93 Oxygen Delivery Method Room Air BMI result Body Mass Index 24.3 <RITCHIE Masterson Last Filed: 06/04/22 18:11> Vital Signs - 24 hr 06/04/22 14:08 06/04/22 18:09 06/04/22 18:26 Temperature 96.7 F L 97.7 F Pulse Rate 101 H 100 81 Respiratory Rate 18 20 20 Blood Pressure 143/77 H 174/98 H Pulse Oximetry 94 92 Oxygen Delivery Method Room Air Room Air 06/04/22 20:09 06/04/22 20:12 Temperature 97.8 F Pulse Rate 74 72 Respiratory Rate 22 H 16 Blood Pressure 159/74 H Pulse Oximetry 93 Oxygen Delivery Method Room Air BMI result Body Mass Index 24.3 <Jesica Garcias NP - Last Filed: 06/05/22 00:52> Const General: cooperative, healthy appearing, comfortable and no acute distress <Jesica Garcias NP - Last Filed: 06/05/22 00:52> Orientation/consciousness: patient oriented x3 <Jesica Garcias NP - Last Filed: 06/05/22 00:52> Limitations: no limitations <Jesica Garcias NP - Last Filed: 06/05/22 00:52> HENMT Head: Yes normal to inspection <Jesica Garcias [employer] - Last Filed: 06/05/22 00:52> Ears: hearing grossly normal bilaterally and TM's normal bilaterally <Jesica Garcias [employer] - Last Filed: 06/05/22 00:52> General nose exam: Normal external nose present <Jesica Garcias NP - Last Filed: 06/05/22 00:52> Face and sinus: Yes normal facial exam <Jesica Garcias [employer] - Last Filed: 06/05/22 00:52> Mouth: Normal oral and palatal mucosa present <Jesica Garcais NP - Last Filed: 06/05/22 00:52> Throat: Yes posterior oropharynx normal, Yes tonsils normal and Yes uvula midline <Jesica Garcias [employer] - Last Filed: 06/05/22 00:52> Eyes General: appearance normal, both eyes and all related structures <Jesica Garcias [employer] - Last Filed: 06/05/22 00:52> Pupils: Equal, round and reactive pupils present <Jesica Garcias [employer] - Last Filed: 06/05/22 00:52> Neck Neck: Yes normal visual inspection, Yes full ROM and Yes no lymphadenopathy <Ariana Garcias [employer] - Last Filed: 06/05/22 00:52> Chest Chest palpation & inspection: normal inspection of the chest <Jesica Garcias [employer] - Last Filed: 06/05/22 00:52> Resp Effort & Inspection: normal respiratory effort <Jesica Garcias [employer] - Last Filed: 06/05/22 00:52> Auscultation: wheezes <Jesica Garcias NP - Last Filed: 06/05/22 00:52> Cardio Rate: regular rate <Jesica Garcias NP - Last Filed: 06/05/22 00:52> Rhythm: regular rhythm <Jesica Garcias NP - Last Filed: 06/05/22 00:52> Peripheral pulses: Peripheral pulses 2+ throughout <Jesica Garcias [employer] - Last Filed: 06/05/22 00:52> GI Inspection: Yes normal to inspection <Jesica Garcias [employer] - Last Filed: 06/05/22 00:52> Palpation (GI): Soft to palpation and nontender <Jesica Garcias [employer] - Last Filed: 06/05/22 00:52> General: Yes no CVA tenderness <Jesica Garcias [employer] - Last Filed: 06/05/22 00:52> Back/Spine/Pelvis Back: no CVA tenderness <Jesicameliza Garcias, [employer] - Last Filed: 06/05/22 00:52> Thoracic/Lumbar Spine: thoracic and lumbar spine normal to inspection <Jesica Garcias [employer] - Last Filed: 06/05/22 00:52> Skin General skin exam: no rashes or lesions noted <Jesica Garcias [employer] - Last Filed: 06/05/22 00:52> Neuro General: patient oriented x3 and moves all extremities <Jesica Garcias [employer] - Last Filed: 06/05/22 00:52> Cranial nerves: Yes CN's II-XII intact bilaterally, Yes Equal, round and reactive pupils present and Yes Bilaterally intact EOM present <Jesica Garcias [employer] - Last Filed: 06/05/22 00:52> Cognition (Neuro): normal cognition <Jesica Garcias [employer] - Last Filed: 06/05/22 00:52> Gait exam (Neuro): Normal gait present <Jesica Garcias [employer] - Last Filed: 06/05/22 00:52> Motor exam (neuro): 5/5 motor strength present throughout <Jesica Garcias [employer] - Last Filed: 06/05/22 00:52> Sensory Exam: Normal double simultaneous stimulation for sensation <Jesica Garcias [employer] - Last Filed: 06/05/22 00:52> Extrem General: Yes normal to inspection, Yes no pedal edema and Yes no calf tenderness <Jesica Garcias [employer] - Last Filed: 06/05/22 00:52> Course Course Course Narrative: This is an RME: Additional HPI, ROS, PE not included below will be deferred to primary provider. 66-year-old male presents with shortness of breath on both at rest and with exertion, patient reports upper respiratory symptoms last week have been progressively worsening. He tells me his chest feels tight. Denies fevers, chills, sick contacts, nausea, vomiting, abdominal pain. Upon physical examination diminished breath sounds bilaterally with significant inspiratory and expiratory wheezing. Plan viral testing, basic labs, chest x-ray, DuoNeb, mag, solumedrol Reeval at 1811 w/ significant wheezing 90% on RA w/ labored breathing. Will order mag solumedrol <RITCHIE Masterson - Last Filed: 06/04/22 18:11> Reevaluation(s) Reevaluation #1: 1920-patient with continued wheezing despite receiving DuoNeb, Solu- Medrol, magnesium. Overall patient feels better. Will repeat albuterol and perform ambulatory pulse oximeter. Negative chest x-ray, viral testing, labs. <Jesica Garcias NP - Last Filed: 06/05/22 00:52> Reevaluation #2: 2000-patient walks with oxygen saturation 91%. Patient overall feels much improved. Patient has oxygen and nebulizer machine at home. He feels very comfortable going home. Likely COPD exacerbation. Patient will be discharged home with antibiotics and prednisone. Reviewed worrisome signs and symptoms of when to return to the emergency room. Comfortable plan for discharge home. <Jesica Garcias NP - Last Filed: 06/05/22 00:52> Medications Administered Discontinued Medications Generic Name Dose Route Start Last Admin Trade Name Bradford PRN Reason Stop Dose Admin Albuterol Sulfate 5 mg 06/04/22 19:07 06/04/22 20:12 Albuterol Sulfate (0.083%) 2.5 Mg/3 Ml Vial.Neb INHALE 06/04/22 19:08 5 mg ONCE ONE Administration Albuterol/Ipratropium 3 ml 06/04/22 14:13 06/04/22 18:25 Albuterol/Iprat 2.5/0.5mg 3 Ml Ampul.Neb INHALE 06/04/22 14:14 3 ml ONCE ONE Administration Doxycycline Monohydrate 100 mg 06/04/22 20:38 06/04/22 21:25 Doxycycline Monohydrate 100 Mg Capsule PO 06/04/22 20:39 100 mg ONCE ONE Administration Magnesium Sulfate 2 gm in 50 mls @ 25 mls/hr 06/04/22 18:10 06/04/22 20:43 Magnesium Sulfate/H2o IV 06/04/22 20:09 Infused ONCE ONE Infusion Methylprednisolone Sodium Succinate 125 mg 06/04/22 18:10 06/04/22 18:33 Methylprednisolone Sod Succ 125 Mg/2 Ml Vial IVPUSH 06/04/22 18:11 125 mg ONCE ONE Administration <RITCHIE Masterson - Last Filed: 06/04/22 18:11> Medications Administered Discontinued Medications Generic Name Dose Route Start Last Admin Trade Name Freq PRN Reason Stop Dose Admin Albuterol Sulfate 5 mg 06/04/22 19:07 06/04/22 20:12 Albuterol Sulfate (0.083%) 2.5 Mg/3 Ml Vial.Neb INHALE 06/04/22 19:08 5 mg ONCE ONE Administration Albuterol/Ipratropium 3 ml 06/04/22 14:13 06/04/22 18:25 Albuterol/Iprat 2.5/0.5mg 3 Ml Ampul.Neb INHALE 06/04/22 14:14 3 ml ONCE ONE Administration Doxycycline Monohydrate 100 mg 06/04/22 20:38 06/04/22 21:25 Doxycycline Monohydrate 100 Mg Capsule PO 06/04/22 20:39 100 mg ONCE ONE Administration Magnesium Sulfate 2 gm in 50 mls @ 25 mls/hr 06/04/22 18:10 06/04/22 20:43 Magnesium Sulfate/H2o IV 06/04/22 20:09 Infused ONCE ONE Infusion Methylprednisolone Sodium Succinate 125 mg 06/04/22 18:10 06/04/22 18:33 Methylprednisolone Sod Succ 125 Mg/2 Ml Vial IVPUSH 06/04/22 18:11 125 mg ONCE ONE Administration <Jesica Garcias NP - Last Filed: 06/05/22 00:52> Medical Decision Making Medical Decision Making MDM Narrative: 66-year-old male with history of hypertension and COPD presents with cough and congestion for 3 days now with wheezing and difficulty breathing. On arrival. Vitals are stable. Inspiratory and expiratory wheezing throughout. Will obtain labs, EKG, chest x-ray, viral testing. Patient to be given Solu-Medrol, DuoNeb and magnesium <Jesica Garcias NP - Last Filed: 06/05/22 00:52> Differential Diagnosis Differential Diagnoses: The differential diagnosis associated with the presentation includes <Jesica Garcias NP - Last Filed: 06/05/22 00:52> Pneumonia, viral syndrome, COPD exacerbation Less likely PE <Jesica Garcias NP - Last Filed: 06/05/22 00:52> Lab Data MDM Lab Attestation statement: I reviewed the patient's lab results. <Jesica Garcias NP - Last Filed: 06/05/22 00:52> Result Diagrams: 06/04/22 14:44 06/04/22 14:44 <RITCHIE Masterson - Last Filed: 06/04/22 18:11> Labs: Lab Results 06/04/22 06/04/22 06/04/22 Range/Units 14:44 14:44 14:44 WBC 6.8 (4.8-10.8) X10*3/uL RBC 3.84 L (4.60-5.80) X10*6/uL Hgb 13.1 L (14.0-18.0) g/dl Hct 37.3 L (42.0-52.0) % MCV 97.1 (80.0-98.0) fL MCH 34.1 H (27.0-33.0) pg MCHC 35.1 (31.0-36.0) g/dl RDW 11.9 (11.0-16.0) % Plt Count 189 (160-400) X10*3/uL MPV 10.6 (9.4-12.4) fL Immature Gran % (Auto) 0.4 (0.0-0.4) % Neut % (Auto) 68.2 (45-73) % Lymph % (Auto) 14.4 L (20-40) % Harmon % (Auto) 13.2 H (2-11) % Eos % (Auto) 3.5 (0-4) % Baso % (Auto) 0.3 (0-2) % Lymph # (Auto) 1.0 L (1.2-4.9) X10*3/uL Harmon # (Auto) 0.9 (0.1-1.2) X10*3/uL Eos # (Auto) 0.2 (0.0-0.4) X10*3/uL Baso # (Auto) 0.0 (0.0-0.2) X10*3/uL Abs Immat Gran (auto) 0.03 (0.00-0.03) X10*3/uL Absolute Neuts (auto) 4.6 (2.0-8.3) x10*3/uL Absolute Nucleated RBC 0.000 (0.0-0.012) X10*3/uL Nucleated RBC % (auto) 0.0 (0.0-0.2) /100WBC Sodium 143 (135-145) mmol/L Potassium 4.0 (3.3-5.1) mmol/L Chloride 106 (96-108) mmol/L Carbon Dioxide 27 (22-29) mmol/L Anion Gap 14 (12-20) BUN 14 (9-16) mg/dL Creatinine 1.08 (0.5-1.4) mg/dL Estim Creat Clear Calc 65.4 Estimated GFR > 60 Random Glucose 132 H (60-115) mg/dL Calcium 9.1 (8.4-10.2) mg/dL Total Bilirubin 0.7 (0.0-1.0) mg/dL AST 18 (5-37) U/L ALT 19 (0-40) U/L Alkaline Phosphatase 66 (39-117) U/L Troponin I High Sens 5.7 (<3.5-35.0) ng/L B-Natriuretic Peptide (<100) pg/mL Total Protein 6.5 (6.5-8.0) g/dL Albumin 4.2 (3.5-5.0) g/dL COVID-19 (GWYN) (Negative) COVID-19 Clin Com Influenza Type A (RUBEN) (Negative) Influenza Type B (RUBEN) (Negative) Influenza A & B Note 06/04/22 06/04/22 06/04/22 Range/Units 14:44 14:44 14:44 WBC (4.8-10.8) X10*3/uL RBC (4.60-5.80) X10*6/uL Hgb (14.0-18.0) g/dl Hct (42.0-52.0) % MCV (80.0-98.0) fL MCH (27.0-33.0) pg MCHC (31.0-36.0) g/dl RDW (11.0-16.0) % Plt Count (160-400) X10*3/uL MPV (9.4-12.4) fL Immature Gran % (Auto) (0.0-0.4) % Neut % (Auto) (45-73) % Lymph % (Auto) (20-40) % Harmon % (Auto) (2-11) % Eos % (Auto) (0-4) % Baso % (Auto) (0-2) % Lymph # (Auto) (1.2-4.9) X10*3/uL Harmon # (Auto) (0.1-1.2) X10*3/uL Eos # (Auto) (0.0-0.4) X10*3/uL Baso # (Auto) (0.0-0.2) X10*3/uL Abs Immat Gran (auto) (0.00-0.03) X10*3/uL Absolute Neuts (auto) (2.0-8.3) x10*3/uL Absolute Nucleated RBC (0.0-0.012) X10*3/uL Nucleated RBC % (auto) (0.0-0.2) /100WBC Sodium (135-145) mmol/L Potassium (3.3-5.1) mmol/L Chloride (96-108) mmol/L Carbon Dioxide (22-29) mmol/L Anion Gap (12-20) BUN (9-16) mg/dL Creatinine (0.5-1.4) mg/dL Estim Creat Clear Calc Estimated GFR Random Glucose (60-115) mg/dL Calcium (8.4-10.2) mg/dL Total Bilirubin (0.0-1.0) mg/dL AST (5-37) U/L ALT (0-40) U/L Alkaline Phosphatase (39-117) U/L Troponin I High Sens (<3.5-35.0) ng/L B-Natriuretic Peptide 24 (<100) pg/mL Total Protein (6.5-8.0) g/dL Albumin (3.5-5.0) g/dL COVID-19 (GWYN) Negative (Negative) COVID-19 Clin Com See Note Influenza Type A (RUBEN) Negative (Negative) Influenza Type B (RUBEN) Negative (Negative) Influenza A & B Note See Note <RITCHIE Masterson - Last Filed: 06/04/22 18:11> Lab Results 06/04/22 06/04/22 06/04/22 Range/Units 14:44 14:44 14:44 WBC 6.8 (4.8-10.8) X10*3/uL RBC 3.84 L (4.60-5.80) X10*6/uL Hgb 13.1 L (14.0-18.0) g/dl Hct 37.3 L (42.0-52.0) % MCV 97.1 (80.0-98.0) fL MCH 34.1 H (27.0-33.0) pg MCHC 35.1 (31.0-36.0) g/dl RDW 11.9 (11.0-16.0) % Plt Count 189 (160-400) X10*3/uL MPV 10.6 (9.4-12.4) fL Immature Gran % (Auto) 0.4 (0.0-0.4) % Neut % (Auto) 68.2 (45-73) % Lymph % (Auto) 14.4 L (20-40) % Harmon % (Auto) 13.2 H (2-11) % Eos % (Auto) 3.5 (0-4) % Baso % (Auto) 0.3 (0-2) % Lymph # (Auto) 1.0 L (1.2-4.9) X10*3/uL Harmon # (Auto) 0.9 (0.1-1.2) X10*3/uL Eos # (Auto) 0.2 (0.0-0.4) X10*3/uL Baso # (Auto) 0.0 (0.0-0.2) X10*3/uL Abs Immat Gran (auto) 0.03 (0.00-0.03) X10*3/uL Absolute Neuts (auto) 4.6 (2.0-8.3) x10*3/uL Absolute Nucleated RBC 0.000 (0.0-0.012) X10*3/uL Nucleated RBC % (auto) 0.0 (0.0-0.2) /100WBC Sodium 143 (135-145) mmol/L Potassium 4.0 (3.3-5.1) mmol/L Chloride 106 (96-108) mmol/L Carbon Dioxide 27 (22-29) mmol/L Anion Gap 14 (12-20) BUN 14 (9-16) mg/dL Creatinine 1.08 (0.5-1.4) mg/dL Estim Creat Clear Calc 65.4 Estimated GFR > 60 Random Glucose 132 H (60-115) mg/dL Calcium 9.1 (8.4-10.2) mg/dL Total Bilirubin 0.7 (0.0-1.0) mg/dL AST 18 (5-37) U/L ALT 19 (0-40) U/L Alkaline Phosphatase 66 (39-117) U/L Troponin I High Sens 5.7 (<3.5-35.0) ng/L B-Natriuretic Peptide (<100) pg/mL Total Protein 6.5 (6.5-8.0) g/dL Albumin 4.2 (3.5-5.0) g/dL COVID-19 (GWYN) (Negative) COVID-19 Clin Com Influenza Type A (RUBEN) (Negative) Influenza Type B (RUBEN) (Negative) Influenza A & B Note 06/04/22 06/04/22 06/04/22 Range/Units 14:44 14:44 14:44 WBC (4.8-10.8) X10*3/uL RBC (4.60-5.80) X10*6/uL Hgb (14.0-18.0) g/dl Hct (42.0-52.0) % MCV (80.0-98.0) fL MCH (27.0-33.0) pg MCHC (31.0-36.0) g/dl RDW (11.0-16.0) % Plt Count (160-400) X10*3/uL MPV (9.4-12.4) fL Immature Gran % (Auto) (0.0-0.4) % Neut % (Auto) (45-73) % Lymph % (Auto) (20-40) % Harmon % (Auto) (2-11) % Eos % (Auto) (0-4) % Baso % (Auto) (0-2) % Lymph # (Auto) (1.2-4.9) X10*3/uL Harmon # (Auto) (0.1-1.2) X10*3/uL Eos # (Auto) (0.0-0.4) X10*3/uL Baso # (Auto) (0.0-0.2) X10*3/uL Abs Immat Gran (auto) (0.00-0.03) X10*3/uL Absolute Neuts (auto) (2.0-8.3) x10*3/uL Absolute Nucleated RBC (0.0-0.012) X10*3/uL Nucleated RBC % (auto) (0.0-0.2) /100WBC Sodium (135-145) mmol/L Potassium (3.3-5.1) mmol/L Chloride (96-108) mmol/L Carbon Dioxide (22-29) mmol/L Anion Gap (12-20) BUN (9-16) mg/dL Creatinine (0.5-1.4) mg/dL Estim Creat Clear Calc Estimated GFR Random Glucose (60-115) mg/dL Calcium (8.4-10.2) mg/dL Total Bilirubin (0.0-1.0) mg/dL AST (5-37) U/L ALT (0-40) U/L Alkaline Phosphatase (39-117) U/L Troponin I High Sens (<3.5-35.0) ng/L B-Natriuretic Peptide 24 (<100) pg/mL Total Protein (6.5-8.0) g/dL Albumin (3.5-5.0) g/dL COVID-19 (GWYN) Negative (Negative) COVID-19 Clin Com See Note Influenza Type A (RUBEN) Negative (Negative) Influenza Type B (RUBEN) Negative (Negative) Influenza A & B Note See Note <Jesica Garcias NP - Last Filed: 06/05/22 00:52> Independent Interpretation I performed an independent interpretation of an: EKG and Plain X-Ray (I independently reviewed the chest x-ray and agree with radiologist's report) <Jesica Garcias NP - Last Filed: 06/05/22 00:52> Interpretation: I independently reviewed the EKG which shows normal sinus rhythm at a rate of 90, normal ID, normal QRS, no QT <Jesica Garcias NP - Last Filed: 06/05/22 00:52> Radiology Impression Discussion of test interpretation with radiology: I have reviewed the radiologist's reading. <Jesica Garcias NP - Last Filed: 06/05/22 00:52> Radiologist Impression: [address] [id number] XRay Report Signed Patient: Kavon Parnell MR#: [id number] : 1955 Acct:[id number] Age/Sex: 66 / M ADM Date: 06/04/22 Loc: .ED Attending Dr: Ordering Physician: Eliana Alaniz Date of Service: 06/04/22 Procedure(s): XR chest 1V Accession Number(s): [id number] cc: Eliana Alaniz~ EXAMINATION: XR CHEST CLINICAL INFORMATION: Shortness of breath COMPARISON: Chest x-ray 12/29/2021 TECHNIQUE: Frontal view of the chest was obtained. 3:09 PM FINDINGS: No significant abnormality is noted involving the heart, lungs, mediastinum, bony thorax or soft tissues. XR/XR chest 1V IMPRESSION: Unremarkable examination. ? <Jesica Garcias NP - Last Filed: 06/05/22 00:52> Discharge Plan Discharge Clinical Impression: Acute exacerbation of chronic obstructive airways disease <RITCHIE Masterson - Last Filed: 06/04/22 18:11> Patient Disposition: Home, Self-Care <RITCHIE Masterson - Last Filed: 06/04/22 18:11> Instructions: COPD (Chronic Obstructive Pulmonary Disease) (ED) <RITCHIE Masterson - Last Filed: 02/09/23 18:11> Additional Instructions: Return for worsening symptoms Start medications tomorrow Use your oxygen and nebulizer as needed <RITCHIE Masterson - Last Filed: 06/04/22 18:11> Prescriptions: New prednisone 20 mg tablet 60 mg PO DAILY 5 Days Qty: 15 0RF doxycycline monohydrate 100 mg capsule 100 mg PO BID Qty: 20 0RF No Action multivitamin Tablet 1 tab PO DAILY losartan 50 mg tablet 1 tab PO DAILY atorvastatin 10 mg tablet 1 tab PO DAILY omeprazole 20 mg Capsule,Delayed Release(Dr/Ec) 20 mg PO DAILY@0630 doxazosin 2 mg tablet 1 tab PO DAILY fluticasone furoate-vilanterol [Breo Ellipta] 100-25 mcg/dose Blister With Device 1 ea inhalation RDAILY Qty: 60 0RF Spiriva with HandiHaler 18 mcg capsule, w/inhalation device 1 cap inhalation DAILY Qty: 30 0RF Rx Instructions: puncture 1 cap using device; one dose = 2 inhalations prednisone 10 mg tablet See Taper PO DAILY Qty: 30 0RF Taper: Prednisone 40 mg daily for 3 Days and 0 Hour 30 mg daily for 3 Days and 0 Hour 20 mg daily for 3 Days and 0 Hour 10 mg daily for 3 Days and 0 Hour nicotine 14 mg/24 hr patch 24 hour 1 patch transdermal Q24H Qty: 28 0RF albuterol sulfate [Proventil HFA] 90 mcg/actuation HFA aerosol inhaler 2 puff inhalation QID PRN (Reason: shortness of breath or wheezing) Qty: 8.5 2RF (DME) Aerochamber MV Spacer See Rx Instructions .Route Qty: 10 0RF Rx Instructions: As directed <RITCHIE Masterson - Last Filed: 06/04/22 18:11> Referrals: Feliberto Britt MD [Primary Care Provider] - <RITCHIE Masterson - Last Filed: 06/04/22 18:11> Interventions: ED Discharge Assessment Last Done: 06/04/22 21:26 <RITCHIE Masterson - Last Filed: 06/04/22 18:11> Discharge Date/Time: 06/04/22 21:26 <RITCHIE Masterson - Last Filed: 06/04/22 18:11>
[2022-06-04 14:51] LABS: MANUAL DIFF FLAG NO
[2022-06-04 14:52] LABS: Basophils Percent Auto 0.3 % (0-2); Eosinophils Absolute Auto 0.2 X10*3/uL (0.0-0.4); Eosinophils Percent Auto 3.5 % (0-4); Hematocrit 37.3 % (42.0-52.0); Hemoglobin 13.1 g/dl (14.0-18.0); Imm Gran Abs Auto 0.03 X10*3/uL (0.00-0.03); Imm Gran Pct Auto 0.4 % (0.0-0.4); Lymphocytes Percent Auto 14.4 % (20-40); Mean Corpuscular HGB Conc 35.1 g/dl (31.0-36.0); Mean Corpuscular Hemoglobin 34.1 pg (27.0-33.0); Mean Corpuscular Volume 97.1 fL (80.0-98.0); Mean Platelet Volume 10.6 fL (9.4-12.4); Monocytes Absolute Auto 0.9 X10*3/uL (0.1-1.2); Monocytes Percent Auto 13.2 % (2-11); Neutrophils Absolute Auto 4.6 x10*3/uL (2.0-8.3); Neutrophils Percent Auto 68.2 % (45-73); Platelet Count 189 X10*3/uL (160-400); Red Blood Count 3.84 X10*6/uL (4.60-5.80); Red Cell Distribution Width 11.9 % (11.0-16.0); White Blood Count 6.8 X10*3/uL (4.8-10.8)
[2022-06-04 15:10] LABS: COVID-19 Test Negative (Negative); IDNOW Serial# 16C4AD1C; IDNOW Serial# BCCEAD1C; Influenza A Negative (Negative); Influenza B2 Negative (Negative)
[2022-06-04 15:15] LABS: Alanine Aminotransferase 19 U/L (0-40); Albumin Level 4.2 g/dL (3.5-5.0); Alkaline Phosphatase 66 U/L (39-117); Anion Gap 14 (12-20); Aspartate Amino Transferase 18 U/L (5-37); Bilirubin Total 0.7 mg/dL (0.0-1.0); Blood Urea Nitrogen 14 mg/dL (9-16); Calcium 9.1 mg/dL (8.4-10.2); Carbon Dioxide 27 mmol/L (22-29); Chloride 106 mmol/L (96-108); Creatinine Clr Calc Pharmacy 65.4; Estimated Glomerular Filt Rate > 60; Glucose Random 132 mg/dL (60-115); Sodium 143 mmol/L (135-145); Total Protein 6.5 g/dL (6.5-8.0)
[2022-06-04 15:20] LABS: B Type Natriuretic Peptide 24 pg/mL (<100)
[2022-06-04 15:24] LABS: Troponin-I High Sensitivity 5.7 ng/L (<3.5-35.0)
[2022-06-04 18:09] VITALS: BP 174/98; PULSE 100; RESP 20; TEMP 36.5; O2SAT 92
[2022-06-04] MEDS: Albuterol/Iprat 2.5/0.5MG 3 ML AMPUL.NEB INHALE (18:25)
[2022-06-04 18:26] VITALS: PULSE 81; RESP 20; O2SAT 100
[2022-06-04] MEDS: methylPREDNISolone Sod Succ 125 MG/2 ML VIAL IVPUSH (18:33)
[2022-06-04] MEDS: Magnesium Sulfate/H2O 2 GM/50 ML PIGGYBACK IV (18:33)
--- NOTE | 2022-06-04 20:00 | PC.NURSE ---
RT CONTACTED FOR ANITRA [place]
[2022-06-04 20:09] VITALS: BP 159/74; PULSE 74; RESP 22; TEMP 36.6; O2SAT 93
[2022-06-04 20:12] VITALS: PULSE 72; RESP 16; O2SAT 92
[2022-06-04] MEDS: Albuterol Sulfate (0.083%) 2.5 MG/3 ML VIAL.NEB 5 MG INHALE (20:12)
--- NOTE | 2022-06-04 20:44 | PC.NURSE ---
ROAD TEST SUCCESSFUL, PT REMAINED >90% ON RA DURING AMBULATION. ABLE TO CONVERSE SIMULTANEOUSLY, SLIGHTLY WINDED, THOUGH STATES HE IS NOT FAR FROM {HIS} BASELINE
[2022-06-04] MEDS: Doxycycline Monohydrate 100 MG CAPSULE PO (21:25)
== END 2022-06-04 21:26 | disposition home or self-care (01) ==
PROVIDERS: Physician Assistant; Emergency Provider Emergency Medicine; PCP Internal Medicine
DX: J44.1 Chronic obstructive pulmonary disease with (acute) exacerbation (principal); Z20.822 Contact with and (suspected) exposure to COVID-19; I10 Essential (primary) hypertension; E78.5 Hyperlipidemia, unspecified; Z99.81 Dependence on supplemental oxygen; Z87.891 Personal history of nicotine dependence; Z79.02 Long term (current) use of antithrombotics/antiplatelets; Z79.899 Other long term (current) drug therapy
CPT/HCPCS: 36415; 71045; 80053; 83880; 84484; 85025; 87502; 87635; 93005; 94640; 96365; 96366; 96375; 99284; J2930; J3475

== ENCOUNTER 2022-08-19 21:46 | Inpatient (IN) | payer MEDICARE, SELFPAY ==
--- NOTE | ~2022-08-19 | XR_ITS ---
EXAMINATION: XR CHEST CLINICAL INFORMATION: Dyspnea. COMPARISON: 06/04/2022 chest radiograph. TECHNIQUE: Frontal view of the chest was obtained. FINDINGS: No significant abnormality is noted involving the heart, lungs, mediastinum, bony thorax or soft tissues. XR/XR chest 1V IMPRESSION: No acute cardiopulmonary process.
[2022-08-19 21:48] VITALS: BP 156/91; PULSE 110; RESP 18; TEMP 36.6; O2SAT 88; BMI 24.3
--- NOTE | 2022-08-19 22:15 | PC.NURSE ---
this rn assumed care of pt from waiting room at this time. pt placed on greeting card writer. iv line placed 20 g R AC. pt tolerated well. bloodwork obtained and sent down to lab. this rn made dr peacock aware of pt status. RT contacted by this rn
[2022-08-19 22:18] LABS: MANUAL DIFF FLAG NO
--- NOTE | 2022-08-19 22:20 | ED_ITS ---
HPI - SOB/Dyspnea General Chief Complaint: Dyspnea Stated Complaint: Chest Pain/SOB Time Seen by Provider: 08/19/22 22:20 Source: patient Mode of arrival: ambulatory Limitations: no limitations History of Present Illness HPI Narrative: 67-year-old male with history of COPD who presents emergency department for araceli luation of increasing shortness of breath over the past 2 days . Patient states that he wears oxygen as needed but over the past 2 days he tested wear continuously. He also states that he uses albuterol nebulizer infrequently but he has had to use it every 4 hours with only minimal relief the shortness of breath. He has had a cough which is productive of clear slimy fluid with no blood in the sputum. He denied fever, chills, rhinorrhea, sore throat, chest pain, nausea, vomiting, diarrhea. Denied myalgias arthralgias He states that he has never been intubated. He stop smoking cigarettes 6 months prior but he has greater than 50 pack-year smoking. He occasionally drinks alcohol. He denies drug use. Related Data Home Medications Medication Instructions Recorded Confirmed atorvastatin 10 mg tablet 1 tab PO DAILY 01/31/21 08/19/22 doxazosin 2 mg tablet 1 tab PO DAILY 01/31/21 08/19/22 losartan 50 mg tablet 1 tab PO DAILY 01/31/21 08/19/22 multivitamin 1 tab PO DAILY 01/31/21 08/19/22 omeprazole 20 mg capsule,delayed 20 mg PO DAILY@0630 01/31/21 08/19/22 release amlodipine 2.5 mg tablet 2.5 mg PO DAILY 08/19/22 08/19/22 Previous Rx's Medication Instructions Recorded albuterol sulfate 90 mcg/actuation 2 puff inhalation QID PRN 12/01/21 aerosol inhaler (Proventil HFA) shortness of breath or wheezing #8.5 grams inhalational spacing device #10 ea 12/01/21 (Aerochamber MV spacer) fluticasone furoate 100 1 ea inhalation RDAILY #60 ea 01/01/22 mcg-vilanterol 25 mcg/dose inhalation powder (Breo Ellipta) nicotine 14 mg/24 hr daily 1 patch transdermal Q24H #28 ea 01/01/22 transdermal patch prednisone 10 mg tablet See Taper PO DAILY #30 tabs 01/01/22 tiotropium bromide 18 mcg capsule 1 cap inhalation DAILY #30 01/01/22 with inhalation device (Spiriva inhalations with HandiHaler) doxycycline monohydrate 100 mg 100 mg PO BID #20 caps 06/04/22 capsule prednisone 20 mg tablet 60 mg PO DAILY 5 days #15 tabs 06/04/22 Allergies Allergy/AdvReac Type Severity Reaction Status Date / Time No Known Allergies Allergy Verified 08/19/22 21:48 Review of Systems Review of Systems: Yes all other systems are reviewed and are negative [facility] Past Medical History [facility] Narrative: Social history: The patient he stop smoking cigarettes 6 months prior but he does 50 pack-year history of smoking. He occasionally drinks alcohol. Denies drug use. Medical History COPD exacerbation GERD (gastroesophageal reflux disease) HLD (hyperlipidemia) Hypertension Hypertension Surgical History History of appendectomy Social History Social History Household Members: None Household Members Other:: daughter lives next door Housing: House Do you presently have visiting nurse or other home services: No Alcohol intake: current Alcohol intake frequency: a few times a week Alcohol type: beer Patient Tobacco Use Status: Former Tobacco user Quit Date: 12/03/21 Tobacco use type: Cigarette Years Smoked: 40 Smoked in Last 30 Days: No e-Cigarette/Vaping Use: Never Used Second Hand Smoke Exposure: No Use of substances other than those prescribed or required for medical reasons: No Advance Directives: No Advance Directives Information Provided: No service: No Current occupational status: employed Physical Exam Vital Signs: Vital Signs: Last Vital Signs Temp 97.9 F 08/19/22 21:48 Pulse 94 08/19/22 22:43 Resp 18 08/19/22 22:43 BP 156/91 H 08/19/22 21:48 Pulse Ox 88 L 08/19/22 21:48 O2 Del Method Room Air 08/19/22 21:48 BMI result Body Mass Index 24.3 Const: Other: Awake, alert, male patient, very pleasant cooperative, breathing through pursed lips, sitting upright, using accessory muscles to breathe HEENT: Head: Yes normal to inspection, Yes normocephalic and Yes atraumatic Ears: external ears normal General nose exam: Normal external nose present Face and sinus: Yes normal facial exam Mouth: Normal oral and palatal mucosa present Throat: Yes posterior oropharynx normal Eyes: General: appearance normal, both eyes and all related structures Pupils: Equal, round and reactive pupils present Neck: Neck: Yes normal visual inspection, Yes no lymphadenopathy, Yes trachea midline and Yes supple Chest: Chest palpation & inspection: normal inspection of the chest and normal palpation of entire chest wall Resp: Other: Dyspnea with tachypnea, sitting upright, breathing through pursed lips, diffuse wheezing, breath sounds symmetric bilaterally, no rales or rhonchi Cardio: Rate: regular rate Rhythm: regular rhythm Heart sounds: S1 normal heart sound present, S2 normal heart sound present and no murmurs GI: Inspection: Yes normal to inspection Palpation (GI): Soft to palpation, nontender and no guarding Auscultation: normal bowel sounds : General: Yes no CVA tenderness Back/Spine/Pelvis: Back: no CVA tenderness Skin: General skin exam: no rashes or lesions noted Neuro: Cranial nerves: Yes CN's II-XII intact bilaterally and Yes Equal, round and reactive pupils present Cognition (Neuro): normal cognition Motor exam (neuro): 5/5 motor strength present throughout Extrem: General: Yes normal to inspection Psych: Appearance: grossly normal Speech and movement: Normal speech and movement present Affect: normal affect Attitude: cooperative Thought process: Normal thought process present Thought content: Normal thought content present Medications Administered Generic Name Dose Route Start Last Admin Trade Name Freq PRN Reason Stop Dose Admin Azithromycin 500 mg/ Sodium 250 mls @ 125 mls/hr 08/19/22 23:15 08/19/22 23:51 Chloride IV 125 mls/hr 2200 [place] Administration Discontinued Medications Generic Name Dose Route Start Last Admin Trade Name Freq PRN Reason Stop Dose Admin Albuterol Sulfate 5 mg 08/19/22 22:30 08/19/22 22:41 Albuterol Sulfate (0.083%) 2.5 Mg/3 Ml Vial.Neb INHALE 08/19/22 22:31 5 mg ONCE ONE Administration Albuterol/Ipratropium 3 ml 08/19/22 22:30 08/19/22 22:41 Albuterol/Iprat 2.5/0.5mg 3 Ml Ampul.Neb INHALE 08/19/22 22:31 3 ml ONCE ONE Administration Methylprednisolone Sodium Succinate 125 mg 08/19/22 22:30 08/19/22 22:44 Methylprednisolone Sod Succ 125 Mg/2 Ml Vial IVPUSH 08/19/22 22:31 125 mg ONCE ONE Administration Medical Decision Making Medical Decision Making [facility] Narrative: 67-year-old male with a history of COPD was had increased shortness of breath for the past 2 days requiring to wear his p.r.n. oxygen continually and having to uses albuterol nebulizer every 4 hours which is unusual for him. Patient has had a productive cough but otherwise no other significant systemic symptoms. P atient's O2 saturation on room air was 88% on 2 L his O2 saturation is 94% . The patient appears dyspneic and has tachypnea, he is also sitting up using accessory muscles to breathe and is breathing through pursed lips. I ordered the following tests on the patient: CBC, CMP, COVID-19, venous blood gas, lactic acid, blood cultures x2, chest x-ray x1. Patient will be treated with an albuterol nebulizer 5 mg followed by a DuoNeb 2.5 mg. He is also ordered to get Solu-Medrol 125 mg IV Differential Diagnosis Differential Diagnoses: The differential diagnosis associated with the presentation includes Differential diagnosis includes was not limited to pneumonia, COPD exacerbation, bronchitis, pneumothorax Admission/Observation Consideration of admission/observation: Escalation of care including admission/observation considered Consult Healthcare Provider Management of the patient was discussed with: Hospitalist Lab Data [facility] Lab Attestation statement: I reviewed the patient's lab results. My interpretation of patient's laboratory evaluation is as follows: Anemia with an H&H of 13.2 and 39.2, elevated MCV of 100.5-these are chronic. VBG revealed a pH of 7.38 which is normal. PCO2 of 50 which is similar to his previous values. 08/19/22 22:12 08/19/22 22:12 Labs: Lab Results 08/19/22 08/19/22 08/19/22 Range/Units 22:12 22:12 22:12 WBC 7.9 (4.8-10.8) X10*3/uL RBC 3.90 L (4.60-5.80) X10*6/uL Hgb 13.2 L (14.0-18.0) g/dl Hct 39.2 L (42.0-52.0) % MCV 100.5 H (80.0-98.0) fL MCH 33.8 H (27.0-33.0) pg MCHC 33.7 (31.0-36.0) g/dl RDW 11.7 (11.0-16.0) % Plt Count 231 (160-400) X10*3/uL MPV 10.2 (9.4-12.4) fL Immature Gran % (Auto) 0.4 (0.0-0.4) % Neut % (Auto) 56.0 (45-73) % Lymph % (Auto) 25.3 (20-40) % [place] % (Auto) 10.4 (2-11) % Eos % (Auto) 7.3 H (0-4) % Baso % (Auto) 0.6 (0-2) % Lymph # (Auto) 2.0 (1.2-4.9) X10*3/uL [place] # (Auto) 0.8 (0.1-1.2) X10*3/uL Eos # (Auto) 0.6 H (0.0-0.4) X10*3/uL Baso # (Auto) 0.1 (0.0-0.2) X10*3/uL Abs Immat Gran (auto) 0.03 (0.00-0.03) X10*3/uL Absolute Neuts (auto) 4.4 (2.0-8.3) x10*3/uL Absolute Nucleated RBC 0.000 (0.0-0.012) X10*3/uL Nucleated RBC % (auto) 0.0 (0.0-0.2) /100WBC VBG pH (7.32-7.43) VBG pCO2 mmHg VBG pO2 mmHg VBG HCO3 (22-26) mmol/L VBG O2 Saturation % VBG Base Excess mmol/L Sodium 143 (135-145) mmol/L Potassium 3.9 (3.3-5.1) mmol/L Chloride 106 (96-108) mmol/L Carbon Dioxide 29 (22-29) mmol/L Anion Gap 12 (12-20) BUN 12 (9-16) mg/dL Creatinine 0.95 (0.5-1.4) mg/dL Estim Creat Clear Calc 73.3 Estimated GFR > 60 Random Glucose 121 H (60-115) mg/dL Lactic Acid 1.4 (0.5-2.0) mmol/L Calcium 8.9 (8.4-10.2) mg/dL Total Bilirubin 0.5 (0.0-1.0) mg/dL AST 18 (5-37) U/L ALT 24 (0-40) U/L Alkaline Phosphatase 68 (39-117) U/L Total Protein 6.7 (6.5-8.0) g/dL Albumin 4.4 (3.5-5.0) g/dL Vitamin B12 997 H (200-900) pg/mL Folate 16.3 (> or = 4.0) ng/mL COVID-19 ([facility]) (Negative) COVID-19 Clin Com Influenza Type A (PCR) Influenza Type B (PCR) RSV RNA Qual (PCR) SARS-CoV-2 RNA (RT-PCR) 08/19/22 08/19/22 08/19/22 Range/Units 22:12 22:12 22:18 WBC (4.8-10.8) X10*3/uL RBC (4.60-5.80) X10*6/uL Hgb (14.0-18.0) g/dl Hct (42.0-52.0) % MCV (80.0-98.0) fL MCH (27.0-33.0) pg MCHC (31.0-36.0) g/dl RDW (11.0-16.0) % Plt Count (160-400) X10*3/uL MPV (9.4-12.4) fL Immature Gran % (Auto) (0.0-0.4) % Neut % (Auto) (45-73) % Lymph % (Auto) (20-40) % [place] % (Auto) (2-11) % Eos % (Auto) (0-4) % Baso % (Auto) (0-2) % Lymph # (Auto) (1.2-4.9) X10*3/uL [place] # (Auto) (0.1-1.2) X10*3/uL Eos # (Auto) (0.0-0.4) X10*3/uL Baso # (Auto) (0.0-0.2) X10*3/uL Abs Immat Gran (auto) (0.00-0.03) X10*3/uL Absolute Neuts (auto) (2.0-8.3) x10*3/uL Absolute Nucleated RBC (0.0-0.012) X10*3/uL Nucleated RBC % (auto) (0.0-0.2) /100WBC VBG pH 7.38 (7.32-7.43) VBG pCO2 50 mmHg VBG pO2 52 mmHg VBG HCO3 29 H (22-26) mmol/L VBG O2 Saturation 79.0 % VBG Base Excess 3.8 mmol/L Sodium (135-145) mmol/L Potassium (3.3-5.1) mmol/L Chloride (96-108) mmol/L Carbon Dioxide (22-29) mmol/L Anion Gap (12-20) BUN (9-16) mg/dL Creatinine (0.5-1.4) mg/dL Estim Creat Clear Calc Estimated GFR Random Glucose (60-115) mg/dL Lactic Acid (0.5-2.0) mmol/L Calcium (8.4-10.2) mg/dL Total Bilirubin (0.0-1.0) mg/dL AST (5-37) U/L ALT (0-40) U/L Alkaline Phosphatase (39-117) U/L Total Protein (6.5-8.0) g/dL Albumin (3.5-5.0) g/dL Vitamin B12 (200-900) pg/mL Folate (> or = 4.0) ng/mL COVID-19 ([facility]) Negative (Negative) COVID-19 Clin Com See Note Influenza Type A (PCR) Cancelled Influenza Type B (PCR) Cancelled RSV RNA Qual (PCR) Cancelled SARS-CoV-2 RNA (RT-PCR) Cancelled ABG Data ABG Results: VBG interpretation see labs Independent Interpretation I performed an independent interpretation of an: Plain X-Ray Interpretation: My interpretation of the patient's one-view chest x-ray is COPD changes, no pneumonia, infiltrates or pneumothorax Radiology Impression Discussion of test interpretation with radiology: I have reviewed the radiologist's reading. Radiologist Impression: XR chest 1V IMPRESSION: No acute cardiopulmonary process. Dictated By:Enio Tilley MD Discharge Plan Discharge Clinical Impression: Acute exacerbation of chronic obstructive pulmonary disease Patient Disposition: Admitted As Inpatient
[2022-08-19 22:22] LABS: Basophils Absolute Auto 0.1 X10*3/uL (0.0-0.2); Basophils Percent Auto 0.6 % (0-2); Eosinophils Absolute Auto 0.6 X10*3/uL (0.0-0.4); Eosinophils Percent Auto 7.3 % (0-4); Hematocrit 39.2 % (42.0-52.0); Hemoglobin 13.2 g/dl (14.0-18.0); Imm Gran Abs Auto 0.03 X10*3/uL (0.00-0.03); Imm Gran Pct Auto 0.4 % (0.0-0.4); Lymphocytes Percent Auto 25.3 % (20-40); Mean Corpuscular HGB Conc 33.7 g/dl (31.0-36.0); Mean Corpuscular Hemoglobin 33.8 pg (27.0-33.0); Mean Corpuscular Volume 100.5 fL (80.0-98.0); Mean Platelet Volume 10.2 fL (9.4-12.4); Monocytes Absolute Auto 0.8 X10*3/uL (0.1-1.2); Monocytes Percent Auto 10.4 % (2-11); Neutrophils Absolute Auto 4.4 x10*3/uL (2.0-8.3); Platelet Count 231 X10*3/uL (160-400); Red Cell Distribution Width 11.7 % (11.0-16.0); White Blood Count 7.9 X10*3/uL (4.8-10.8)
[2022-08-19 22:25] LABS: VBG Base Excess 3.8 mmol/L; VBG HCO3 29 mmol/L (22-26); VBG pCO2 50 mmHg; VBG pH 7.38 (7.32-7.43); VBG pO2 52 mmHg
[2022-08-19 22:36] LABS: Venous Blood Gas Refer to POC result
[2022-08-19] MEDS: Albuterol Sulfate (0.083%) 2.5 MG/3 ML VIAL.NEB 5 MG INHALE (22:41)
[2022-08-19] MEDS: Albuterol/Iprat 2.5/0.5MG 3 ML AMPUL.NEB INHALE (22:41)
[2022-08-19 22:43] VITALS: PULSE 94; RESP 18; O2SAT 92
[2022-08-19] MEDS: methylPREDNISolone Sod Succ 125 MG/2 ML VIAL IVPUSH (22:44)
[2022-08-19 22:46] LABS: Lactic Acid 1.4 mmol/L (0.5-2.0)
[2022-08-19 22:50] LABS: COVID-19 Test Negative (Negative); IDNOW Serial# 6674DD1D
[2022-08-19 22:51] LABS: Alanine Aminotransferase 24 U/L (0-40); Albumin Level 4.4 g/dL (3.5-5.0); Alkaline Phosphatase 68 U/L (39-117); Anion Gap 12 (12-20); Aspartate Amino Transferase 18 U/L (5-37); Bilirubin Total 0.5 mg/dL (0.0-1.0); Blood Urea Nitrogen 12 mg/dL (9-16); Calcium 8.9 mg/dL (8.4-10.2); Carbon Dioxide 29 mmol/L (22-29); Chloride 106 mmol/L (96-108); Creatinine Clr Calc Pharmacy 73.3; Estimated Glomerular Filt Rate > 60; Glucose Random 121 mg/dL (60-115); Potassium 3.9 mmol/L (3.3-5.1); Sodium 143 mmol/L (135-145); Total Protein 6.7 g/dL (6.5-8.0)
--- NOTE | 2022-08-19 23:13 | PM.IMHP ---
History of Present Illness Date of Service: 08/19/22 Chief Complaint: Dyspnea This is a 67-year-old male with pertinent history of COPD, mixed hyperlipidemia, essential hypertension, gastroesophageal reflux disease presents to the emergency department for evaluation of dyspnea and wheezing. Patient states symptoms started 2 days prior to presentation, have been progressive in onset. Dyspnea is worse with exertion. Patient only uses oxygen as needed but for the last 2 days he has been using 2 L supplemental oxygen for due to his dyspnea. Patient states his symptoms did not relieve with home inhaler. Patient denies associated fevers and chills. Admits cough with clears sputum production. He denies chest discomfort, palpitations, abdominal pain, changes in urinary bowel habits. Patient smoked for 50 years but stopped smoking 6 months ago. Has never been intubated. The emergency department, patient continued to wheeze even with multiple DuoNeb treatments. Requiring 3 L supplemental oxygen Review of Systems Cardiovascular: Cardiovascular: Reports dyspnea on exertion Respiratory: Respiratory: Reports cough, Reports dyspnea on exertion and Reports wheezing Gastrointestinal: Gastrointestinal: Reports no additional gastrointestinal complaints Genitourinary: Genitourinary: Reports no additional male genitourinary complaints Allergic/Immunologic: Allergic/Immunologic: Reports wheezing [facility] Medical History COPD exacerbation GERD (gastroesophageal reflux disease) HLD (hyperlipidemia) Hypertension Hypertension Pertinent family history: No family history of early CAD Surgical History History of appendectomy Social History Household Members: None Household Members Other:: daughter lives next door Housing: House Do you presently have visiting nurse or other home services: No Alcohol intake: current Alcohol intake frequency: a few times a week Alcohol type: beer Patient Tobacco Use Status: Former Tobacco user Quit Date: 12/03/21 Tobacco use type: Cigarette Years Smoked: 40 Smoked in Last 30 Days: No e-Cigarette/Vaping Use: Never Used Second Hand Smoke Exposure: No Use of substances other than those prescribed or required for medical reasons: No Advance Directives: No Advance Directives Information Provided: No service: No Current occupational status: employed Meds Allergies Allergy/AdvReac Type Severity Reaction Status Date / Time No Known Allergies Allergy Verified 08/19/22 21:48 Active Medications: Current Medications Albuterol/Ipratropium (Albuterol/Iprat 2.5/0.5mg 3 Ml Ampul.Neb) 3 ml INHALE RQ4H WHILE AWAKE [place] Albuterol/Ipratropium (Albuterol/Iprat 2.5/0.5mg 3 Ml Ampul.Neb) 3 ml INHALE Q4H PRN PRN Reason: Wheezing Pharmacy Consult (Consult Rx Perform Med Rec) 1 each MISCELLANE ONCE PRN PRN Reason: Consult order Home Medications Medication Instructions Recorded Confirmed Last Taken Type atorvastatin 10 mg tablet 1 tab PO DAILY 01/31/21 12/30/21 12/29/21 History doxazosin 2 mg tablet 1 tab PO DAILY 01/31/21 12/30/21 12/29/21 History losartan 50 mg tablet 1 tab PO DAILY 01/31/21 12/30/21 12/29/21 History multivitamin 1 tab PO DAILY 01/31/21 12/30/21 12/29/21 History omeprazole 20 mg capsule,delayed 20 mg PO DAILY@0630 01/31/21 12/30/21 12/29/21 History release Physical Exam Vital Signs and Narrative: Vital Signs: Last Vital Signs Temp 97.9 F 08/19/22 21:48 Pulse 94 08/19/22 22:43 Resp 18 08/19/22 22:43 BP 156/91 H 08/19/22 21:48 Pulse Ox 88 L 08/19/22 21:48 O2 Del Method Room Air 08/19/22 21:48 BMI result Body Mass Index 24.3 Middle-aged male lying in bed in mild distress on supplemental oxygen Neck supple, no JVD Tachycardic with regular rhythm, S1-S2 heard Bilateral expiratory wheezing without crackles Abdomen soft nontender, no guarding, no rigidity Patient is awake, alert and oriented to self, place, time and person ; no focal motor deficit Psych: Normal mood No pedal edema Results Labs 08/19/22 22:12 08/19/22 22:12 Labs: Laboratory Results - last 24 hr 08/19/22 08/19/22 08/19/22 22:12 22:12 22:12 MCV 100.5 H MCH 33.8 H MCHC 33.7 RDW 11.7 Plt Count 231 MPV 10.2 Immature Gran % (Auto) 0.4 Neut % (Auto) 56.0 Lymph % (Auto) 25.3 [place] % (Auto) 10.4 Eos % (Auto) 7.3 H Baso % (Auto) 0.6 Lymph # (Auto) 2.0 [place] # (Auto) 0.8 Eos # (Auto) 0.6 H Baso # (Auto) 0.1 Abs Immat Gran (auto) 0.03 Absolute Neuts (auto) 4.4 Absolute Nucleated RBC 0.000 Nucleated RBC % (auto) 0.0 VBG pH VBG pCO2 VBG pO2 VBG HCO3 VBG O2 Saturation VBG Base Excess Anion Gap 12 Estim Creat Clear Calc 73.3 Estimated GFR > 60 Random Glucose 121 H Lactic Acid 1.4 Calcium 8.9 Total Bilirubin 0.5 AST 18 ALT 24 Alkaline Phosphatase 68 Total Protein 6.7 Albumin 4.4 COVID-19 ([facility]) COVID-19 Clin Com Influenza Type A (PCR) Influenza Type B (PCR) RSV RNA Qual (PCR) SARS-CoV-2 RNA (RT-PCR) 08/19/22 08/19/22 08/19/22 22:12 22:12 22:18 MCV MCH MCHC RDW Plt Count MPV Immature Gran % (Auto) Neut % (Auto) Lymph % (Auto) [place] % (Auto) Eos % (Auto) Baso % (Auto) Lymph # (Auto) [place] # (Auto) Eos # (Auto) Baso # (Auto) Abs Immat Gran (auto) Absolute Neuts (auto) Absolute Nucleated RBC Nucleated RBC % (auto) VBG pH 7.38 VBG pCO2 50 VBG pO2 52 VBG HCO3 29 H VBG O2 Saturation 79.0 VBG Base Excess 3.8 Anion Gap Estim Creat Clear Calc Estimated GFR Random Glucose Lactic Acid Calcium Total Bilirubin AST ALT Alkaline Phosphatase Total Protein Albumin COVID-19 ([facility]) Negative COVID-19 Clin Com See Note Influenza Type A (PCR) Cancelled Influenza Type B (PCR) Cancelled RSV RNA Qual (PCR) Cancelled SARS-CoV-2 RNA (RT-PCR) Cancelled Imaging Radiologist's Impressions: Impressions Chest X-Ray 08/19/22 22:20 IMPRESSION: No acute cardiopulmonary process. Assessment and Plan (1) Acute respiratory failure with hypoxia: Status: Acute (2) Acute exacerbation of chronic obstructive pulmonary disease: Status: Acute Plan This is a 67-year-old male with pertinent history of COPD, mixed hyperlipidemia, essential hypertension, gastroesophageal reflux disease presents to the emergency department for evaluation of dyspnea and wheezing. #. Acute hypoxemic respiratory failure secondary to acute exacerbation of COPD: Will admit patient and initiate systemic steroids. Scheduled and p.r.n. DuoNebs. Continue home inhaler. Monitor oxygen saturation and wean as tolerated. Maintain oxygen saturation greater than 88%. Initiating azithromycin for pleiotropic effect #. Essential hypertension: Continue home antihypertensives #. Gastroesophageal reflux disease: On PPI #. Mixed hyperlipidemia: On statin #. Macrocytosis: Obtaining B12 and folate Med rec pending DVT prophylaxis: Lovenox 40 mg daily Full code Cardiac diet Admit as inpatient and will require two night minimum hospital stay for supplemental oxygen Time Spent With Patient Time: Total time managing care of this patient today ____ minutes. Quality Stroke Does the patient have a stroke diagnosis?: No VTE Prior VTE?: No VTE Risk Level:: Medical - moderate - high VTE Device Contraindication: Treatment Not Indicated VTE Drug Contraindication: N/A - Med Ordered
[2022-08-19] MEDS: Azithromycin 500 MG in 0.9 % Sodium Chloride 250 ML 125 MG IV (23:51)
--- NOTE | 2022-08-20 00:17 | PC.NURSE ---
this rn performed med rec for pt. pt able to confirm medications and dosages at this time. dr marvin made aware
[2022-08-20 00:19] LABS: Folate 16.3 ng/mL (> or = 4.0); Vitamin B12 997 pg/mL (200-900)
[2022-08-20 01:52] VITALS: BP 148/84; PULSE 90; RESP 16; TEMP 36.6; O2SAT 95
[2022-08-20 04:43] VITALS: BP 128/66; PULSE 76; RESP 17; TEMP 37; O2SAT 95
--- NOTE | 2022-08-20 04:44 | PC.NURSE ---
pt sleeping on stretcher at this time. pt noted to be snoring. spo2 97% 3 LPM. lights dimmed
[2022-08-20 06:08] VITALS: BP 145/76; PULSE 80; RESP 17; TEMP 36.1; O2SAT 95
[2022-08-20 06:51] LABS: MANUAL DIFF FLAG NO
[2022-08-20 07:01] LABS: Basophils Percent Auto 0.1 % (0-2); Eosinophils Percent Auto 0.1 % (0-4); Hematocrit 38.8 % (42.0-52.0); Hemoglobin 13.2 g/dl (14.0-18.0); Imm Gran Abs Auto 0.04 X10*3/uL (0.00-0.03); Imm Gran Pct Auto 0.5 % (0.0-0.4); Lymphocytes Absolute Auto 0.7 X10*3/uL (1.2-4.9); Lymphocytes Percent Auto 8.6 % (20-40); Mean Corpuscular Hemoglobin 33.9 pg (27.0-33.0); Mean Corpuscular Volume 99.7 fL (80.0-98.0); Mean Platelet Volume 10.5 fL (9.4-12.4); Monocytes Absolute Auto 0.1 X10*3/uL (0.1-1.2); Monocytes Percent Auto 0.7 % (2-11); Neutrophils Absolute Auto 7.6 x10*3/uL (2.0-8.3); Platelet Count 246 X10*3/uL (160-400); Red Blood Count 3.89 X10*6/uL (4.60-5.80); Red Cell Distribution Width 11.5 % (11.0-16.0); White Blood Count 8.4 X10*3/uL (4.8-10.8)
[2022-08-20 07:13] LABS: Anion Gap 17 (12-20); Blood Urea Nitrogen 15 mg/dL (9-16); Carbon Dioxide 21 mmol/L (22-29); Chloride 107 mmol/L (96-108); Creatinine Clr Calc Pharmacy 71.1; Estimated Glomerular Filt Rate > 60; Glucose Random 158 mg/dL (60-115); Potassium 4.3 mmol/L (3.3-5.1); Sodium 141 mmol/L (135-145)
--- NOTE | 2022-08-20 07:17 | PHA.MEDREC ---
Pharmacy Consult ? Medication Reconciliation Pharmacy has completed the medication reconciliation. Reviewed med rec done by nursing
--- NOTE | 2022-08-20 08:12 | HO.PM.IMPN ---
Subjective Subjective Date of Service: 08/20/22 Interval History: follow-up on acute exacerbation of COPD with acute hypoxic respiratory failure. Interval history:He's feeling alot better, no hypoxia Physical Exam Vital Signs: Vital Signs: Last Vital Signs Temp 97.0 F 08/20/22 06:08 Pulse 80 08/20/22 06:08 Resp 17 08/20/22 06:08 BP 145/76 H 08/20/22 06:08 Pulse Ox 95 08/20/22 06:08 O2 Del Method Nasal Cannula 08/20/22 06:08 O2 Flow Rate 3 08/20/22 06:08 BMI result Body Mass Index 24.3 Const: Other: General: AO X 3, no acute distress Resp: CTA bilateral, no wheeze no accessory muscle use CVS: S1,S2,RRR GI: +BS, NT, no distention Skin: No rash Neuro: motor grossly intact Psych: appropriate affect Objective Data Active Medications Acetaminophen (Acetaminophen 325 Mg Tablet) 650 mg PO Q6H PRN PRN Reason: Pain, Mild (Pain Scale 1-3) Albuterol/Ipratropium (Albuterol/Iprat 2.5/0.5mg 3 Ml Ampul.Neb) 3 ml INHALE RQ4H WHILE AWAKE [place] Albuterol/Ipratropium (Albuterol/Iprat 2.5/0.5mg 3 Ml Ampul.Neb) 3 ml INHALE Q4H PRN PRN Reason: Wheezing Benzonatate (Benzonatate 100 Mg Capsule) 200 mg PO TID PRN PRN Reason: cough Enoxaparin Sodium (Enoxaparin Sodium 40 Mg/0.4 Ml Syringe) 40 mg SUBCUT Q24H [place] Azithromycin 500 mg/ Sodium (Chloride) 250 mls @ 125 mls/hr IV [facility] Last Infusion: 08/20/22 02:00 Dose: 0 mls/hr Documented By: VELIA Melatonin (Melatonin 3 Mg Tablet) 6 mg PO BEDTIME PRN PRN Reason: Insomnia Methylprednisolone Sodium Succinate (Methylprednisolone Sod Succ 40 Mg/Ml Vial) 40 mg IVPUSH Q12H [place] Ondansetron HCl (Ondansetron Hcl 4 Mg/2 Ml Vial) 4 mg IVPUSH Q8H PRN PRN Reason: Nausea and Vomiting Pharmacy Consult (Consult Rx Perform Med Rec) 1 each MISCELLANE ONCE PRN PRN Reason: Consult order Sodium Chloride (0.9 % Sodium Chloride Flush 3 Ml Syringe) 3 ml IVFLUSH QSHIFT [facility] Last Admin: 08/20/22 02:09 Dose: Not Given Documented By: VELIA Non-Admin Reason: IV Running Labs 08/20/22 06:46 08/20/22 06:46 Labs: Laboratory Results - last 24 hr 08/19/22 08/19/22 08/19/22 22:12 22:12 22:12 MCV 100.5 H MCH 33.8 H MCHC 33.7 RDW 11.7 Plt Count 231 MPV 10.2 Immature Gran % (Auto) 0.4 Neut % (Auto) 56.0 Lymph % (Auto) 25.3 [place] % (Auto) 10.4 Eos % (Auto) 7.3 H Baso % (Auto) 0.6 Lymph # (Auto) 2.0 [place] # (Auto) 0.8 Eos # (Auto) 0.6 H Baso # (Auto) 0.1 Abs Immat Gran (auto) 0.03 Absolute Neuts (auto) 4.4 Absolute Nucleated RBC 0.000 Nucleated RBC % (auto) 0.0 VBG pH VBG pCO2 VBG pO2 VBG HCO3 VBG O2 Saturation VBG Base Excess Anion Gap 12 Estim Creat Clear Calc 73.3 Estimated GFR > 60 Random Glucose 121 H Lactic Acid 1.4 Calcium 8.9 Total Bilirubin 0.5 AST 18 ALT 24 Alkaline Phosphatase 68 Total Protein 6.7 Albumin 4.4 Vitamin B12 997 H Folate 16.3 COVID-19 ([facility]) COVID-19 Clin Com Influenza Type A (PCR) Influenza Type B (PCR) RSV RNA Qual (PCR) SARS-CoV-2 RNA (RT-PCR) 08/19/22 08/19/22 08/19/22 22:12 22:12 22:18 MCV MCH MCHC RDW Plt Count MPV Immature Gran % (Auto) Neut % (Auto) Lymph % (Auto) [place] % (Auto) Eos % (Auto) Baso % (Auto) Lymph # (Auto) [place] # (Auto) Eos # (Auto) Baso # (Auto) Abs Immat Gran (auto) Absolute Neuts (auto) Absolute Nucleated RBC Nucleated RBC % (auto) VBG pH 7.38 VBG pCO2 50 VBG pO2 52 VBG HCO3 29 H VBG O2 Saturation 79.0 VBG Base Excess 3.8 Anion Gap Estim Creat Clear Calc Estimated GFR Random Glucose Lactic Acid Calcium Total Bilirubin AST ALT Alkaline Phosphatase Total Protein Albumin Vitamin B12 Folate COVID-19 ([facility]) Negative COVID-19 Clin Com See Note Influenza Type A (PCR) Cancelled Influenza Type B (PCR) Cancelled RSV RNA Qual (PCR) Cancelled SARS-CoV-2 RNA (RT-PCR) Cancelled 08/20/22 08/20/22 06:46 06:46 MCV 99.7 H MCH 33.9 H MCHC 34.0 RDW 11.5 Plt Count 246 MPV 10.5 Immature Gran % (Auto) 0.5 H Neut % (Auto) 90.0 H Lymph % (Auto) 8.6 L [place] % (Auto) 0.7 L Eos % (Auto) 0.1 Baso % (Auto) 0.1 Lymph # (Auto) 0.7 L [place] # (Auto) 0.1 Eos # (Auto) 0.0 Baso # (Auto) 0.0 Abs Immat Gran (auto) 0.04 H Absolute Neuts (auto) 7.6 Absolute Nucleated RBC 0.000 Nucleated RBC % (auto) 0.0 VBG pH VBG pCO2 VBG pO2 VBG HCO3 VBG O2 Saturation VBG Base Excess Anion Gap 17 Estim Creat Clear Calc 71.1 Estimated GFR > 60 Random Glucose 158 H Lactic Acid Calcium 9.0 Total Bilirubin AST ALT Alkaline Phosphatase Total Protein Albumin Vitamin B12 Folate COVID-19 ([facility]) COVID-19 Clin Com Influenza Type A (PCR) Influenza Type B (PCR) RSV RNA Qual (PCR) SARS-CoV-2 RNA (RT-PCR) Assessment and Plan (1) Acute exacerbation of chronic obstructive pulmonary disease: Status: Acute (2) Acute respiratory failure with hypoxia: Status: Acute Plan 67-year-old male with pertinent history of COPD, mixed hyperlipidemia, essential hypertension, gastroesophageal reflux disease presents to the emergency department for evaluation of dyspnea and wheezing. #.? He presented with shortness of breathy and found to be hypoxic, he uses oxygen at home as needed. CXR showed no pneumonia, he was treated with bronchodilators by Neb and given IV corticosteroid and has made rapid recovery and presently feeling alot better, lungs are clear, no respiratory distress. He feels comfortable going home today. Will discharge with Prednisone for 4 more days and continue to use oxygen and bronchodilators at home. #.? Essential hypertension:? continue losartan and amlodipine. #.? Gastroesophageal reflux disease: continue Omeprazole #.? Mixed hyperlipidemia:? continue Lipitor #.? Macrocytosis: normal B12 and folate DVT prophylaxis:? Lovenox 40 mg daily Full code Cardiac diet need for inpatient: Acute exacerbation of COPD with hypoxia that required iv steroid, will ambulate and check O2 and if doing well can go home. Time Spent With Patient Time: Total time managing care of this patient today ____ minutes. Quality Stroke Does the patient have a stroke diagnosis?: No VTE Prior VTE?: No VTE Risk Level:: Medical - moderate - high VTE Device Contraindication: Treatment Not Indicated VTE Drug Contraindication: N/A - Med Ordered
[2022-08-20] MEDS: 0.9 % Sodium Chloride Flush 3 ML SYRINGE IVFLUSH (08:18)
[2022-08-20] MEDS: Enoxaparin Sodium 40 MG/0.4 ML SYRINGE SUBCUT (08:18)
[2022-08-20] MEDS: methylPREDNISolone Sod Succ 40 MG/ML VIAL IVPUSH (08:18)
[2022-08-20 08:21] VITALS: PULSE 94; RESP 18; O2SAT 96
[2022-08-20] MEDS: Albuterol/Iprat 2.5/0.5MG 3 ML AMPUL.NEB INHALE ×2 (08:21→10:38)
[2022-08-20] MEDS: amLODIPine Besylate 2.5 MG TABLET PO (09:21)
[2022-08-20] MEDS: Losartan Potassium 50 MG TABLET PO (09:22)
[2022-08-20] MEDS: Multivitamin TABLET 1 TAB PO (09:22)
[2022-08-20] MEDS: Omeprazole 20 MG CAPSULE.DR PO (09:22)
[2022-08-20] MEDS: Atorvastatin Calcium 10 MG TABLET PO (09:22)
[2022-08-20] MEDS: Doxazosin Mesylate 2 MG TABLET PO (09:22)
--- NOTE | 2022-08-20 09:31 | PM.DS ---
DS: Providers Provider Date of Service: 08/20/22 Date of admission: 08/19/22 23:12 Primary care physician: Feliberto Britt MD DS: Diagnosis Discharge Diagnosis (1) Acute exacerbation of chronic obstructive pulmonary disease: Status: Resolved (2) Acute respiratory failure with hypoxia: Status: Resolved DS: Summary Hospital Course Hospital Course: Admission HPI: Chief Complaint: Dyspnea This is a 67-year-old male with pertinent history of COPD, mixed hyperlipidemia, essential hypertension, gastroesophageal reflux disease presents to the emergency department for evaluation of dyspnea and wheezing.? Patient states symptoms started 2 days prior to presentation, have been progressive in onset.? Dyspnea is worse with exertion.? Patient only uses oxygen as needed but for the last 2 days he has been using 2 L supplemental oxygen for due to his dyspnea.? Patient states his symptoms did not relieve with home inhaler.? Patient denies associated fevers and chills.? Admits cough with clears sputum production.? He denies chest discomfort, palpitations, abdominal pain, changes in urinary bowel habits.? Patient smoked for 50 years but stopped smoking 6 months ago.? Has never been intubated. The emergency department, patient continued to wheeze even with multiple DuoNeb treatments.? Requiring 3 L supplemental oxygen Hospital course: #.? He presented with shortness of breathy and found to be hypoxic, he uses oxygen at home as needed. CXR showed no pneumonia, he was treated with bronchodilators by Neb and given IV corticosteroid and has made rapid recovery and presently feeling alot better, lungs are clear, no respiratory distress. He feels comfortable going home today. Given that he has made a rapid than expected recovery, he willl be discharge with Prednisone for 4 more days and continue to use oxygen and bronchodilators at home. #.? Essential hypertension:? continue losartan and amlodipine. #.? Gastroesophageal reflux disease: continue Omeprazole #.? Mixed hyperlipidemia:? continue Lipitor #.? Macrocytosis: normal B12 and folate Time Spent with Patient Time attestation: Total time managing care of this patient today ____ minutes. Discharge coordination time: Greater than 30 minutes Quality: Safe Use of Opioids Does Pt have an Active Cancer Diagnosis on the Problem List?: No Quality: Stroke Does the patient have a stroke diagnosis?: No Physical Exam Vital Signs: Vital Signs: Last Vital Signs Temp 97.0 F 08/20/22 06:08 Pulse 94 08/20/22 08:21 Resp 18 08/20/22 08:21 BP 145/76 H 08/20/22 06:08 Pulse Ox 95 08/20/22 06:08 O2 Del Method Nasal Cannula 08/20/22 06:08 O2 Flow Rate 3 08/20/22 06:08 BMI result Body Mass Index 24.3 Const: Other: General: AO X 3, no acute distress Resp: CTA bilateral, no wheeze no accessory muscle use CVS: S1,S2,RRR GI: +BS, NT, no distention Skin: No rash Neuro: motor grossly intact Psych: appropriate affect DS: Data Data Completed and Pending Labs on day of discharge: Laboratory Results - last 24 hr 08/19/22 08/19/22 08/19/22 22:12 22:12 22:12 WBC 7.9 RBC 3.90 L Hgb 13.2 L Hct 39.2 L MCV 100.5 H MCH 33.8 H MCHC 33.7 RDW 11.7 Plt Count 231 MPV 10.2 Immature Gran % (Auto) 0.4 Neut % (Auto) 56.0 Lymph % (Auto) 25.3 [place] % (Auto) 10.4 Eos % (Auto) 7.3 H Baso % (Auto) 0.6 Lymph # (Auto) 2.0 [place] # (Auto) 0.8 Eos # (Auto) 0.6 H Baso # (Auto) 0.1 Abs Immat Gran (auto) 0.03 Absolute Neuts (auto) 4.4 Absolute Nucleated RBC 0.000 Nucleated RBC % (auto) 0.0 VBG pH VBG pCO2 VBG pO2 VBG HCO3 VBG O2 Saturation VBG Base Excess Sodium 143 Potassium 3.9 Chloride 106 Carbon Dioxide 29 Anion Gap 12 BUN 12 Creatinine 0.95 Estim Creat Clear Calc 73.3 Estimated GFR > 60 Random Glucose 121 H Lactic Acid 1.4 Calcium 8.9 Total Bilirubin 0.5 AST 18 ALT 24 Alkaline Phosphatase 68 Total Protein 6.7 Albumin 4.4 Vitamin B12 997 H Folate 16.3 COVID-19 ([facility]) COVID-19 Clin Com Influenza Type A (PCR) Influenza Type B (PCR) RSV RNA Qual (PCR) SARS-CoV-2 RNA (RT-PCR) 04/26/23 04/26/23 04/26/23 22:12 22:12 22:18 WBC RBC Hgb Hct MCV MCH MCHC RDW Plt Count MPV Immature Gran % (Auto) Neut % (Auto) Lymph % (Auto) [place] % (Auto) Eos % (Auto) Baso % (Auto) Lymph # (Auto) [place] # (Auto) Eos # (Auto) Baso # (Auto) Abs Immat Gran (auto) Absolute Neuts (auto) Absolute Nucleated RBC Nucleated RBC % (auto) VBG pH 7.38 VBG pCO2 50 VBG pO2 52 VBG HCO3 29 H VBG O2 Saturation 79.0 VBG Base Excess 3.8 Sodium Potassium Chloride Carbon Dioxide Anion Gap BUN Creatinine Estim Creat Clear Calc Estimated GFR Random Glucose Lactic Acid Calcium Total Bilirubin AST ALT Alkaline Phosphatase Total Protein Albumin Vitamin B12 Folate COVID-19 ([facility]) Negative COVID-19 Clin Com See Note Influenza Type A (PCR) Cancelled Influenza Type B (PCR) Cancelled RSV RNA Qual (PCR) Cancelled SARS-CoV-2 RNA (RT-PCR) Cancelled 08/20/22 08/20/22 06:46 06:46 WBC 8.4 RBC 3.89 L Hgb 13.2 L Hct 38.8 L MCV 99.7 H MCH 33.9 H MCHC 34.0 RDW 11.5 Plt Count 246 MPV 10.5 Immature Gran % (Auto) 0.5 H Neut % (Auto) 90.0 H Lymph % (Auto) 8.6 L [place] % (Auto) 0.7 L Eos % (Auto) 0.1 Baso % (Auto) 0.1 Lymph # (Auto) 0.7 L [place] # (Auto) 0.1 Eos # (Auto) 0.0 Baso # (Auto) 0.0 Abs Immat Gran (auto) 0.04 H Absolute Neuts (auto) 7.6 Absolute Nucleated RBC 0.000 Nucleated RBC % (auto) 0.0 VBG pH VBG pCO2 VBG pO2 VBG HCO3 VBG O2 Saturation VBG Base Excess Sodium 141 Potassium 4.3 Chloride 107 Carbon Dioxide 21 L Anion Gap 17 BUN 15 Creatinine 0.98 Estim Creat Clear Calc 71.1 Estimated GFR > 60 Random Glucose 158 H Lactic Acid Calcium 9.0 Total Bilirubin AST ALT Alkaline Phosphatase Total Protein Albumin Vitamin B12 Folate COVID-19 ([facility]) COVID-19 Clin Com Influenza Type A (PCR) Influenza Type B (PCR) RSV RNA Qual (PCR) SARS-CoV-2 RNA (RT-PCR) Discharge Plan Discharge Anticipated Discharge Date/Time: 08/20/22 11:37 Patient Disposition: Home, Self-Care Discharge Diagnosis: acute on chronic hypoxic respiratory failure, COPD exacerbation. Referrals: Feliberto Britt MD [Primary Care Provider] - 1 Week Discharge Medications: Continued multivitamin Tablet 1 tab PO DAILY losartan 50 mg tablet 1 tab PO DAILY atorvastatin 10 mg tablet 1 tab PO DAILY omeprazole 20 mg Capsule,Delayed Release(Dr/Ec) 20 mg PO DAILY@0630 doxazosin 2 mg tablet 1 tab PO DAILY albuterol sulfate [Proventil HFA] 90 mcg/actuation HFA aerosol inhaler 2 puff inhalation QID PRN (Reason: shortness of breath or wheezing) Qty: 8.5 2RF (DME) Aerochamber MV Spacer See Rx Instructions .Route Qty: 10 0RF Rx Instructions: As directed amlodipine 2.5 mg tablet 2.5 mg PO DAILY No Action ipratropium-albuterol 0.5 mg-3 mg(2.5 mg base)/3 mL Solution For Nebulization 3 ml inhalation Q4H PRN (Reason: Wheezing) Qty: 300 0RF prednisone 10 mg tablet See Taper PO DIRECTED Qty: 30 0RF Taper: Prednisone 40 mg daily for 3 Days and 0 Hour 30 mg daily for 3 Days and 0 Hour 20 mg daily for 3 Days and 0 Hour 10 mg daily for 3 Days and 0 Hour Rx Instructions: see taper instructions Discharge Orders: Discharge Order (Routine); Ordered 08/20/22 Ordered By: Nabil Gale Diet: Advance to usual diet Activity on Discharge: As tolerated Stand Alone Forms: Patient Portal Discharge page Care Plan Goals: full recovery from copd Health Concerns: copd Plan of Treatment: use oxygen as directed, 3 liter Assessment: as above Discharge Date/Time: 08/20/22 12:45
--- NOTE | 2022-08-20 09:37 | PC.NURSE ---
ambulation trial on 2L nasal cannula. 88-89%. Provider notifed
--- NOTE | 2022-08-20 09:38 | MHC.EDTECH ---
Per MD, Patient ambulated throughout unit. O2 stayed 88%. Patient asked to use the bathroom while we were up, and sats after that back to bed were 86%. Patient on 2L of oxygen. Patient reports feeling fine the entire time, no shortness of breath.
[2022-08-20 10:39] VITALS: PULSE 119; RESP 18; O2SAT 91
[2022-08-20 11:12] VITALS: PULSE 110; PULSE 113; PULSE 117; PULSE 119; PULSE 120; O2SAT 88; O2SAT 90; O2SAT 91; O2SAT 95
--- NOTE | 2022-08-20 11:44 | MHC.CM.PN ---
Patient is still in the ED.
--- NOTE | 2022-08-20 12:35 | P.CDIM_ITS ---
PROVIDER RESPONSE TEXT: To clarify, the appropriate diagnosis supported by the clinical indicators: Acute on chronic QUERY TEXT: PHYSICIAN'S DOCUMENTATION REQUEST Date of Query: 08/20/2022 09:19 AM EDT Patient Name: Kavon Parnell Admit Date: 08/20/2022 Dear Nabil Gale, A review of the medical record indicates additional documentation may be needed. Please review below and update the documentation accordingly. Clinical Indicators: history of COPD at home, wears oxygen as needed but over the past 2 days he wears continuous Per ED note 08/19/22: breathing through pursed lips, sitting upright, using accessory muscles to breathe Dyspnea with tachypnea, diffuse wheezing, breath sounds symmetric bilaterally, no rales or rhonchi O2 saturation on room air was 88% on 2 L his O2 saturation is 94% Treated with Albuterol nebulizer, Duoneb, IV SoluMedrol, oxygen at 3 L NC Clarify which of the following accurately represents the acuity of the Respiratory failure. Possible options might include: Acute Acute on chronic Compensated Chronic stable condition Remission Other (explain) Clinically unable to determine (explain) Thank you, Meron Cordoba RN Use of terms such as suspected, likely, concern for, or probable (associated with a specific diagnosi s that is being evaluated, monitored, or treated as if it exists) are acceptable and can be coded in the inpatient se tting, when documented at the time of discharge. Please use your independent medical judgment in providing your response. THIS QUERY IS PART OF THE PERMANENT MEDICAL RECORD
== END 2022-08-20 12:45 | disposition home or self-care (01) | DRG 190 ==
LOC: HO.ED 22:46 → HO.EDOVER 23:17 → HO.IMC 08-20 10:55 → HO.EDOVER 08-20 12:40
PROVIDERS: Admitting Provider Student in an Organized Health Care Education/Training Program; Emergency Provider Emergency Medicine Emergency Medical Services; PCP Internal Medicine; Visit Provider Internal Medicine
DX: J44.1 Chronic obstructive pulmonary disease with (acute) exacerbation (principal); J96.21 Acute and chronic respiratory failure with hypoxia; K21.9 Gastro-esophageal reflux disease without esophagitis; I10 Essential (primary) hypertension; D75.89 Other specified diseases of blood and blood-forming organs; E78.2 Mixed hyperlipidemia; Z20.822 Contact with and (suspected) exposure to COVID-19; Z99.81 Dependence on supplemental oxygen; Z87.891 Personal history of nicotine dependence; Z79.899 Other long term (current) drug therapy
CPT/HCPCS: 36415; 71045; 80048; 80053; 82607; 82746; 82803; 83605; 85025; 87040; 87635; 94640; 99285; J0456; J1650; J2920; J2930

== ENCOUNTER 2022-09-02 01:03 | Emergency (ER) | payer MEDICARE, SELFPAY ==
--- NOTE | 2022-09-02 | ECG_ITS ---
Test Reason : SHORTNESS OF BREATH Blood Pressure : / mmHG Vent. Rate : 103 BPM Atrial Rate : 103 BPM P-R Int : 138 ms QRS Dur : 098 ms QT Int : 364 ms P-R-T Axes : 084 090 054 degrees QTc Int : 476 ms Artifact in tracing Sinus tachycardia Right atrial enlargement Rightward axis Abnormal ECG When compared with ECG of 04-JUN-2022 14:34, No significant change was found Referred By: Generic ED Physician Electronically Signed By:KWAME MOREJON
--- NOTE | ~2022-09-02 | XR_ITS ---
EXAMINATION: XR CHEST CLINICAL INFORMATION: Shortness of breath COMPARISON: 08/19/2022 TECHNIQUE: Frontal view of the chest was obtained. FINDINGS: The lungs are clear with no focal consolidation. No evidence of pneumothorax, pulmonary edema, or pleural effusions. The cardiomediastinal silhouette is unremarkable. No acute osseous findings. XR/XR chest 1V IMPRESSION: No acute cardiopulmonary findings.
[2022-09-02 01:08] VITALS: BP 158/91; BP 168/93; PULSE 104; PULSE 118; RESP 24; TEMP 36.6; O2SAT 90; O2SAT 94; BMI 24.4
[2022-09-02] MEDS: Albuterol Sulfate (0.083%) 2.5 MG/3 ML VIAL.NEB 7.5 MG INHALE (01:27)
[2022-09-02] MEDS: Albuterol/Iprat 2.5/0.5MG 3 ML AMPUL.NEB INHALE (01:27)
[2022-09-02 01:28] VITALS: PULSE 98; RESP 20; O2SAT 93
[2022-09-02] MEDS: methylPREDNISolone Sod Succ 125 MG/2 ML VIAL IVPUSH (01:30)
--- NOTE | 2022-09-02 01:30 | PC.NURSE ---
this rn assumed care of pt from ems @ 0100. RT at bedside. this harness puller rn and video tape editor at bedside. ekg obtained. bloodwork obtained. dr clemente at bedside
[2022-09-02] MEDS: Magnesium Sulfate/H2O 2 GM/50 ML PIGGYBACK IV (01:31)
--- NOTE | 2022-09-02 01:36 | ED_ITS ---
HPI - SOB/Dyspnea General Chief Complaint: Dyspnea Stated Complaint: Sob Time Seen by Provider: 09/02/22 01:40 Source: patient and EMS Mode of arrival: EMS Limitations: no limitations History of Present Illness HPI Narrative: 67-year-old male with a pertinent history of COPD, hyperlipidemia, essential hypertension, woke up from sleep with shortness of breath and difficulty breathing with wheezing, patient normally uses 2 L of supplemental oxygen at home as needed, patient is a former smoker quit 4 months ago, was found by EMS in acute respiratory distress had CPAP for transportation. In the emergency department patient subjectively feels better with persistent wheezing and some difficulty breathing. Related Data Home Medications Medication Instructions Recorded Confirmed atorvastatin 10 mg tablet 1 tab PO DAILY 01/31/21 08/19/22 doxazosin 2 mg tablet 1 tab PO DAILY 01/31/21 08/19/22 losartan 50 mg tablet 1 tab PO DAILY 01/31/21 08/19/22 multivitamin 1 tab PO DAILY 01/31/21 08/19/22 omeprazole 20 mg capsule,delayed 20 mg PO DAILY@0630 01/31/21 08/19/22 release amlodipine 2.5 mg tablet 2.5 mg PO DAILY 08/19/22 08/19/22 Previous Rx's Medication Instructions Recorded albuterol sulfate 90 mcg/actuation 2 puff inhalation QID PRN 12/01/21 aerosol inhaler (Proventil HFA) shortness of breath or wheezing #8.5 grams inhalational spacing device #10 ea 12/01/21 (Aerochamber MV spacer) prednisone 20 mg tablet 40 mg PO DAILY 4 days #8 tabs 08/20/22 prednisone 20 mg tablet 20 mg PO BID #10 tabs 09/02/22 Allergies Allergy/AdvReac Type Severity Reaction Status Date / Time No Known Allergies Allergy Verified 08/19/22 21:48 Review of Systems Review of Systems: All other systems are reviewed and are negative Constitutional: Reports as per HPI and Reports no additional constitutional complaints Eyes: Reports as per HPI and Reports no additional eye complaints Reports system reviewed and no additional complaints, except as documented Cardiovascular: Reports as per HPI and Reports no additional cardiovascular complaints Respiratory: Reports as per HPI and Reports no additional respiratory complaints Gastrointestinal: Reports as per HPI and Reports no additional gastrointestinal complaints Genitourinary: Reports no additional female genitourinary complaints Musculoskeletal: Reports no additional musculoskeletal complaints Skin/Breast: Reports system reviewed and no additional complaints, except as docu Psychiatric: Reports no additional psychiatric complaints Endocrine: Reports no additional endocrine complaints Hematologic/Lymphatic: Reports no additional hematologic/lymphatic complaints Allergic/Immunologic: Reports no additional allergic/immunologic complaints Reports system reviewed and no additional complaints, except as documented and Reports Abnormal speech present [facility] Past Medical History Medical History COPD exacerbation GERD (gastroesophageal reflux disease) HLD (hyperlipidemia) Hypertension Hypertension Surgical History History of appendectomy Social History Social History Household Members: None Household Members Other:: daughter lives next door Housing: House Do you presently have visiting nurse or other home services: No Alcohol intake: current Alcohol intake frequency: holidays/special occasions only Alcohol type: beer Patient Tobacco Use Status: Former Tobacco user Quit Date: 12/03/21 Tobacco use type: Cigarette Years Smoked: 40 Smoked in Last 30 Days: No e-Cigarette/Vaping Use: Never Used Second Hand Smoke Exposure: No Use of substances other than those prescribed or required for medical reasons: No Advance Directives: No Advance Directives Information Provided: No service: No Current occupational status: employed Physical Exam Vital Signs: Vital Signs: Last Vital Signs Temp 97.6 F 09/02/22 02:24 Pulse 114 H 09/02/22 02:24 Resp 28 H 09/02/22 02:24 BP 141/106 H 09/02/22 02:24 Pulse Ox 94 09/02/22 02:24 O2 Del Method Nasal Cannula 09/02/22 02:24 O2 Flow Rate 3 09/02/22 02:24 Oxygen Flow Rate 3 09/02/22 01:08 BMI result Body Mass Index 24.4 Vital signs have been reviewed as appeared to be correct. Blood pressure normal. Heart rate normal. Respiration rate normal. Temperature normal. Oxygen saturation normal. Appearance: Alert. Oriented X3. No acute distress. Head: Normal external exam. Normocephalic. Atraumatic. No De Souza signs noted. No raccoon eyes noted Eyes: PERRLA. EOMI. Conjunctiva and sclera normal. Eyelids normal. ENT: TM's Normal. Pharynx normal. Uvula midline. Moist mucous membranes. No trismus noted. No drooling noted. No muffled voice noted. Neck: Normal inspection. Neck supple. FROM. No adenopathy. Thyroid Normal. No meningeal signs. No neck mass noted. CVS: Normal heart rate and rhythm. Heart sound normal. No murmurs noted. Pulses normal throughout. Respiratory: Mild respiratory distress. Painless inspiration. Breath sounds normal. Diffuse mild expiratory wheezing with prolonged expiration. Chest non tender. No accessory muscle usage noted or decreased air movement noted. Abdomen: Soft and nontender. Bowel sounds normal in all 4 quadrants. No distention noted. No organomegaly noted. No visible injury noted. Back: No CVA tenderness. Full range of motion noted. Skin: Skin warm and dry. Normal skin color. Normal skin turgor. No rashes/lesions/lacerations noted. Extremities: No lower extremity edema. Extremities exhibit normal range of motion. Extremities nontender. Neuro: Oriented X 3. Cranial nerve exam: II-XII are grossly intact No motor deficit. No sensory deficit. Reflexes normal. Course Reevaluation(s) Reevaluation #1: Patient feels much better after received an hour long of bronchodilator, Solu- Medrol, magnesium IV, O2 sat has been stable in the emergency department, patient felt much improvement and would like to be discharged home recommended to follow up with Dr. Sunshine. Time: 03:52 Medications Administered Discontinued Medications Generic Name Dose Route Start Last Admin Trade Name Freq PRN Reason Stop Dose Admin Albuterol Sulfate 7.5 mg 09/02/22 01:19 09/02/22 01:27 Albuterol Sulfate (0.083%) 2.5 Mg/3 Ml Vial.Neb INHALE 09/02/22 01:20 7.5 mg ONCE ONE Administration Albuterol/Ipratropium 3 ml 09/02/22 01:19 09/02/22 01:27 Albuterol/Iprat 2.5/0.5mg 3 Ml Ampul.Neb INHALE 09/02/22 01:20 3 ml ONCE ONE Administration Magnesium Sulfate 2 gm in 50 mls @ 25 mls/hr 09/02/22 01:19 09/02/22 03:35 Magnesium Sulfate/H2o IV 09/02/22 03:18 Infused ONCE ONE Infusion Methylprednisolone Sodium Succinate 125 mg 09/02/22 01:19 09/02/22 01:30 Methylprednisolone Sod Succ 125 Mg/2 Ml Vial IVPUSH 09/02/22 01:20 125 mg ONCE ONE Administration Medical Decision Making Differential Diagnosis Differential Diagnoses: The differential diagnosis associated with the presentation includes (ACS, pneumonia, pneumothorax, COPD exacerbation, electrolyte abnormalities, severe anemia.) Admission/Observation Consideration of admission/observation: Escalation of care including admis brown/observation considered Lab Data MDM Lab Attestation statement: I reviewed the patient's lab results. 09/02/22 01:33 09/02/22 01:33 Labs: Lab Results 09/02/22 09/02/22 09/02/22 Range/Units 01:33 01:33 01:33 WBC 10.1 (4.8-10.8) X10*3/uL RBC 3.72 L (4.60-5.80) X10*6/uL Hgb 12.7 L (14.0-18.0) g/dl Hct 36.8 L (42.0-52.0) % MCV 98.9 H (80.0-98.0) fL MCH 34.1 H (27.0-33.0) pg MCHC 34.5 (31.0-36.0) g/dl RDW 11.8 (11.0-16.0) % Plt Count 207 (160-400) X10*3/uL MPV 10.3 (9.4-12.4) fL Immature Gran % (Auto) 0.6 H (0.0-0.4) % Neut % (Auto) 63.1 (45-73) % Lymph % (Auto) 20.4 (20-40) % [place] % (Auto) 7.9 (2-11) % Eos % (Auto) 7.4 H (0-4) % Baso % (Auto) 0.6 (0-2) % Lymph # (Auto) 2.1 (1.2-4.9) X10*3/uL [place] # (Auto) 0.8 (0.1-1.2) X10*3/uL Eos # (Auto) 0.8 H (0.0-0.4) X10*3/uL Baso # (Auto) 0.1 (0.0-0.2) X10*3/uL Abs Immat Gran (auto) 0.06 H (0.00-0.03) X10*3/uL Absolute Neuts (auto) 6.4 (2.0-8.3) x10*3/uL Absolute Nucleated RBC 0.000 (0.0-0.012) X10*3/uL Nucleated RBC % (auto) 0.0 (0.0-0.2) /100WBC Sodium 142 (135-145) mmol/L Potassium 3.9 (3.3-5.1) mmol/L Chloride 106 (96-108) mmol/L Carbon Dioxide 28 (22-29) mmol/L Anion Gap 12 (12-20) BUN 10 (9-16) mg/dL Creatinine 1.06 (0.5-1.4) mg/dL Estim Creat Clear Calc 65.7 Estimated GFR > 60 Random Glucose 120 H (60-115) mg/dL Lactic Acid (0.5-2.0) mmol/L Calcium 8.8 (8.4-10.2) mg/dL Total Bilirubin 0.9 (0.0-1.0) mg/dL Direct Bilirubin 0.3 (0.0-0.5) mg/dL AST 19 (5-37) U/L ALT 24 (0-40) U/L Alkaline Phosphatase 66 (39-117) U/L Troponin I High Sens 5.1 (<3.5-35.0) ng/L B-Natriuretic Peptide (<100) pg/mL Total Protein 6.3 L (6.5-8.0) g/dL Albumin 4.1 (3.5-5.0) g/dL Lipase 14 (8-78) U/L COVID-19 ([facility]) (Negative) COVID-19 Clin Com 09/02/22 09/02/22 09/02/22 Range/Units 01:33 01:33 01:33 WBC (4.8-10.8) X10*3/uL RBC (4.60-5.80) X10*6/uL Hgb (14.0-18.0) g/dl Hct (42.0-52.0) % MCV (80.0-98.0) fL MCH (27.0-33.0) pg MCHC (31.0-36.0) g/dl RDW (11.0-16.0) % Plt Count (160-400) X10*3/uL MPV (9.4-12.4) fL Immature Gran % (Auto) (0.0-0.4) % Neut % (Auto) (45-73) % Lymph % (Auto) (20-40) % [place] % (Auto) (2-11) % Eos % (Auto) (0-4) % Baso % (Auto) (0-2) % Lymph # (Auto) (1.2-4.9) X10*3/uL [place] # (Auto) (0.1-1.2) X10*3/uL Eos # (Auto) (0.0-0.4) X10*3/uL Baso # (Auto) (0.0-0.2) X10*3/uL Abs Immat Gran (auto) (0.00-0.03) X10*3/uL Absolute Neuts (auto) (2.0-8.3) x10*3/uL Absolute Nucleated RBC (0.0-0.012) X10*3/uL Nucleated RBC % (auto) (0.0-0.2) /100WBC Sodium (135-145) mmol/L Potassium (3.3-5.1) mmol/L Chloride (96-108) mmol/L Carbon Dioxide (22-29) mmol/L Anion Gap (12-20) BUN (9-16) mg/dL Creatinine (0.5-1.4) mg/dL Estim Creat Clear Calc Estimated GFR Random Glucose (60-115) mg/dL Lactic Acid 0.7 (0.5-2.0) mmol/L Calcium (8.4-10.2) mg/dL Total Bilirubin (0.0-1.0) mg/dL Direct Bilirubin (0.0-0.5) mg/dL AST (5-37) U/L ALT (0-40) U/L Alkaline Phosphatase (39-117) U/L Troponin I High Sens (<3.5-35.0) ng/L B-Natriuretic Peptide 15 (<100) pg/mL Total Protein (6.5-8.0) g/dL Albumin (3.5-5.0) g/dL Lipase (8-78) U/L COVID-19 ([facility]) Negative (Negative) COVID-19 Clin Com See Note Independent Interpretation I performed an independent interpretation of an: EKG (Sinus tachycardia at 1 3 beats per minutes, normal intervals, no acute ischemic change.) and Plain X-Ray (Chest: No acute cardiopulmonary findings.) Radiology Impression Discussion of test interpretation with radiology: I have reviewed the radiologist's reading. Critical Care Time Critical Care Time Critical Care Time: Yes Total Critical Care Time: 60 Attestation: I spent 60 minutes providing critical care service to the patient, this including time spent at the bedside to evaluate the patient, reassess the patient, monitoring vital signs, review labs, and radiographic studies, counseling the patient/family, discussing the case with consultants, disposition the patient. Discharge Plan Discharge Clinical Impression: Acute exacerbation of chronic obstructive airways disease Patient Disposition: Home, Self-Care Instructions: COPD (Chronic Obstructive Pulmonary Disease) (ED) Prescriptions: New prednisone 20 mg tablet 20 mg PO BID Qty: 10 0RF No Action multivitamin Tablet 1 tab PO DAILY losartan 50 mg tablet 1 tab PO DAILY atorvastatin 10 mg tablet 1 tab PO DAILY omeprazole 20 mg Capsule,Delayed Release(Dr/Ec) 20 mg PO DAILY@0630 doxazosin 2 mg tablet 1 tab PO DAILY albuterol sulfate [Proventil HFA] 90 mcg/actuation HFA aerosol inhaler 2 puff inhalation QID PRN (Reason: shortness of breath or wheezing) Qty: 8.5 2RF (DME) Aerochamber MV Spacer See Rx Instructions .Route Qty: 10 0RF Rx Instructions: As directed amlodipine 2.5 mg tablet 2.5 mg PO DAILY prednisone 20 mg tablet 40 mg PO DAILY 4 Days Qty: 8 0RF Referrals: Feliberto Britt MD [Primary Care Provider] - Nelson Sunshine MD [Physician] -
[2022-09-02 01:39] LABS: Basophils Absolute Auto 0.1 X10*3/uL (0.0-0.2); Basophils Percent Auto 0.6 % (0-2); Eosinophils Absolute Auto 0.8 X10*3/uL (0.0-0.4); Eosinophils Percent Auto 7.4 % (0-4); Hematocrit 36.8 % (42.0-52.0); Hemoglobin 12.7 g/dl (14.0-18.0); Imm Gran Abs Auto 0.06 X10*3/uL (0.00-0.03); Imm Gran Pct Auto 0.6 % (0.0-0.4); Lymphocytes Absolute Auto 2.1 X10*3/uL (1.2-4.9); Lymphocytes Percent Auto 20.4 % (20-40); MANUAL DIFF FLAG NO; Mean Corpuscular HGB Conc 34.5 g/dl (31.0-36.0); Mean Corpuscular Hemoglobin 34.1 pg (27.0-33.0); Mean Corpuscular Volume 98.9 fL (80.0-98.0); Mean Platelet Volume 10.3 fL (9.4-12.4); Monocytes Absolute Auto 0.8 X10*3/uL (0.1-1.2); Monocytes Percent Auto 7.9 % (2-11); Neutrophils Absolute Auto 6.4 x10*3/uL (2.0-8.3); Neutrophils Percent Auto 63.1 % (45-73); Platelet Count 207 X10*3/uL (160-400); Red Blood Count 3.72 X10*6/uL (4.60-5.80); Red Cell Distribution Width 11.8 % (11.0-16.0); White Blood Count 10.1 X10*3/uL (4.8-10.8)
[2022-09-02 01:55] LABS: Lactic Acid 0.7 mmol/L (0.5-2.0)
[2022-09-02 02:00] LABS: Alanine Aminotransferase 24 U/L (0-40); Albumin Level 4.1 g/dL (3.5-5.0); Alkaline Phosphatase 66 U/L (39-117); Anion Gap 12 (12-20); Aspartate Amino Transferase 19 U/L (5-37); Bilirubin Direct 0.3 mg/dL (0.0-0.5); Bilirubin Total 0.9 mg/dL (0.0-1.0); Blood Urea Nitrogen 10 mg/dL (9-16); Calcium 8.8 mg/dL (8.4-10.2); Carbon Dioxide 28 mmol/L (22-29); Chloride 106 mmol/L (96-108); Creatinine Clr Calc Pharmacy 65.7; Estimated Glomerular Filt Rate > 60; Glucose Random 120 mg/dL (60-115); Lipase 14 U/L (8-78); Potassium 3.9 mmol/L (3.3-5.1); Sodium 142 mmol/L (135-145); Total Protein 6.3 g/dL (6.5-8.0)
--- NOTE | 2022-09-02 02:00 | PC.NURSE ---
pt medicated according to jun @ 0130. pt calm and cooperative. RT at bedside for breathing treatment at this time
[2022-09-02 02:05] LABS: B Type Natriuretic Peptide 15 pg/mL (<100); Troponin-I High Sensitivity 5.1 ng/L (<3.5-35.0)
[2022-09-02 02:13] LABS: COVID-19 Test Negative (Negative); IDNOW Serial# 08D9AD1C
[2022-09-02 02:24] VITALS: BP 141/106; PULSE 114; RESP 28; TEMP 36.4; O2SAT 94
--- NOTE | 2022-09-02 03:39 | PC.NURSE ---
pt resting on stretcher at this time. head of bed elevated. spo2 92% on 3LPM NC. disposition pending
[2022-09-02 04:11] VITALS: BP 130/66; PULSE 102; RESP 18; O2SAT 93
--- NOTE | 2022-09-02 04:40 | PC.NURSE ---
vss. skin pwd. pt family at bedside to provide ride home. pt family brought pt personal oxygen tank from home.pt calm and cooperative. iv removed at discharge. pt ambulatory at discharge. pt provided with discharge packet. pt verbalized understanding of discharge plan
== END 2022-09-02 04:40 | disposition home or self-care (01) ==
PROVIDERS: Emergency Provider Emergency Medicine; PCP Internal Medicine
DX: J44.1 Chronic obstructive pulmonary disease with (acute) exacerbation (principal); Z20.822 Contact with and (suspected) exposure to COVID-19; I10 Essential (primary) hypertension; E78.5 Hyperlipidemia, unspecified; Z79.02 Long term (current) use of antithrombotics/antiplatelets; Z79.899 Other long term (current) drug therapy
CPT/HCPCS: 36415; 71045; 80048; 80076; 83605; 83690; 83880; 84484; 85025; 87040; 87635; 93005; 94640; 96365; 96366; 96375; 99284; 99285; J2930; J3475

== ENCOUNTER 2022-09-22 02:43 | Inpatient (IN) | payer MEDICARE, SELFPAY ==
[2022-09-22] VITALS (17 sets, daily range): BP systolic 124–168; BP diastolic 58–104; PULSE 100–136; RESP 16–27; TEMP 36.1–37.3; O2SAT 89–99; BMI 26.0; BMI 25.7; BMI 25.9
--- NOTE | ~2022-09-22 | XR_ITS ---
EXAMINATION: XR CHEST CLINICAL INFORMATION: Shortness of breath COMPARISON: 09/02/2022 TECHNIQUE: Frontal view of the chest was obtained. FINDINGS: The lungs are clear with no focal consolidation. No evidence of pneumothorax, pulmonary edema, or pleural effusions. The cardiomediastinal silhouette is unremarkable. No acute osseous findings. XR/XR chest 1V IMPRESSION: No acute cardiopulmonary findings.
[2022-09-22 03:07] LABS: Basophils Percent Auto 0.5 % (0-2); Eosinophils Absolute Auto 0.5 X10*3/uL (0.0-0.4); Eosinophils Percent Auto 6.3 % (0-4); Hematocrit 38.6 % (42.0-52.0); Hemoglobin 12.8 g/dl (14.0-18.0); Imm Gran Abs Auto 0.03 X10*3/uL (0.00-0.03); Imm Gran Pct Auto 0.4 % (0.0-0.4); Lymphocytes Absolute Auto 1.9 X10*3/uL (1.2-4.9); Lymphocytes Percent Auto 23.1 % (20-40); MANUAL DIFF FLAG NO; Mean Corpuscular HGB Conc 33.2 g/dl (31.0-36.0); Mean Corpuscular Volume 102.4 fL (80.0-98.0); Mean Platelet Volume 10.4 fL (9.4-12.4); Monocytes Absolute Auto 0.8 X10*3/uL (0.1-1.2); Monocytes Percent Auto 9.9 % (2-11); Neutrophils Percent Auto 59.8 % (45-73); Platelet Count 215 X10*3/uL (160-400); Red Blood Count 3.77 X10*6/uL (4.60-5.80); White Blood Count 8.3 X10*3/uL (4.8-10.8)
[2022-09-22] MEDS: methylPREDNISolone Sod Succ 125 MG/2 ML VIAL IVPUSH (03:13)
--- NOTE | 2022-09-22 03:17 | ED_ITS ---
HPI - SOB/Dyspnea General Chief Complaint: Dyspnea Stated Complaint: SOB Time Seen by Provider: 09/22/22 03:05 Source: patient Mode of arrival: EMS Limitations: no limitations History of Present Illness HPI Narrative: Patient with history of COPD oxygen dependent 2 L/24hrs, hypertension comes here for increased shortness breath since yesterday patient occasionally get shortness of breath like this. No chest pain no palpitation has some leg swelling which he gets off and on, patient tried nebulizer treatment with no relief , was saturating 89% on 4 L received DuoNeb treatment by the EMS no fever no chills Related Data Home Medications Medication Instructions Recorded Confirmed atorvastatin 10 mg tablet 1 tab PO DAILY 01/31/21 09/22/22 doxazosin 2 mg tablet 1 tab PO DAILY 01/31/21 09/22/22 losartan 50 mg tablet 1 tab PO DAILY 01/31/21 09/22/22 multivitamin 1 tab PO DAILY 01/31/21 09/22/22 omeprazole 20 mg capsule,delayed 20 mg PO DAILY@0630 01/31/21 09/22/22 release amlodipine 2.5 mg tablet 2.5 mg PO DAILY 08/19/22 09/22/22 Previous Rx's Medication Instructions Recorded albuterol sulfate 90 mcg/actuation 2 puff inhalation QID PRN 12/01/21 aerosol inhaler (Proventil HFA) shortness of breath or wheezing #8.5 grams inhalational spacing device #10 ea 12/01/21 (Aerochamber MV spacer) prednisone 20 mg tablet 40 mg PO DAILY 4 days #8 tabs 08/20/22 Allergies Allergy/AdvReac Type Severity Reaction Status Date / Time No Known Allergies Allergy Verified 09/22/22 03:00 Review of Systems Review of Systems: Yes all other systems are reviewed and are negative [facility] Past Medical History Medical History COPD exacerbation GERD (gastroesophageal reflux disease) HLD (hyperlipidemia) Hypertension Hypertension Surgical History History of appendectomy Social History Social History Household Members: None Household Members Other:: daughter lives next door Housing: House Do you presently have visiting nurse or other home services: No Alcohol intake: current Alcohol intake frequency: does not drink Alcohol type: beer Patient Tobacco Use Status: Former Tobacco user Quit Date: 12/03/21 Tobacco use type: Cigarette Years Smoked: 40 Smoked in Last 30 Days: No e-Cigarette/Vaping Use: Never Used Second Hand Smoke Exposure: No Use of substances other than those prescribed or required for medical reasons: No Advance Directives: Yes Advance Directives on File: Yes Advance Directives Date on File: 02/26/22 Nutrition Risks: No Nutritional Risk service: No Current occupational status: employed Physical Exam Vital Signs: Vital Signs: Last Vital Signs Temp 96.9 F 09/22/22 02:50 Pulse 110 H 09/22/22 05:14 Resp 17 09/22/22 05:14 BP 156/86 H 09/22/22 05:14 Pulse Ox 98 09/22/22 05:14 O2 Del Method BiPAP 09/22/22 05:14 O2 Flow Rate 7 09/22/22 02:50 BMI result Body Mass Index 25.7 Appearance: Alert. Oriented X3. In moderate distress. Eyes: PERRLA, No Nystagmus ENT: Pharynx normal. Oral Mucosa moist Neck: Normal inspection. Neck supple. CVS: Normal heart rate and rhythm. Pulses normal. Respiratory: moderate respiratory distress. Equal air entry bilateral, prolonged expiration respiratory wheezing Abdomen: Soft and nontender. Bowel sounds are present, no mass palpable, no CVA tenderness Skin: Skin warm and dry. Normal skin color. Normal skin turgor. Extremities: No lower extremity edema. No calf tenderness Neuro: Oriented X 3. No motor deficit. No sensory deficit.No cerebellar signs , cranial nerves II-XII intact Medications Administered Generic Name Dose Route Start Last Admin Trade Name Freq PRN Reason Stop Dose Admin Enoxaparin Sodium 40 mg 09/22/22 05:00 09/22/22 05:12 Enoxaparin Sodium 40 Mg/0.4 Ml Syringe SUBCUT 40 mg DAILY@0800 [place] Administration Discontinued Medications Generic Name Dose Route Start Last Admin Trade Name Freq PRN Reason Stop Dose Admin Albuterol Sulfate 7.5 mg/ 0 mg 09/22/22 03:05 09/22/22 03:10 Albuterol/Ipratropium 3 ml INHALE 09/22/22 03:06 1 each ONCE ONE Administration Magnesium Sulfate 2 gm in 50 mls @ 100 mls/hr 09/22/22 03:42 09/22/22 04:37 Magnesium Sulfate/H2o IV 09/22/22 04:11 Infused ONCE ONE Infusion Methylprednisolone Sodium Succinate 125 mg 09/22/22 03:05 09/22/22 03:13 Methylprednisolone Sod Succ 125 Mg/2 Ml Vial IVPUSH 09/22/22 03:06 125 mg ONCE ONE Administration Medical Decision Making Medical Decision Making [facility] Narrative: 03:10 Patient has severe COPD working on his breathing will place him on BiPAP check the gases Gases showed slightly hypercapnia venous pCO2 55 pain with respiratory acidosis will admit patient to ICU case discussed with Dr. Schultz , at this time patient is on BiPAP with 30% FiO2 10/ 6 and saturating 96% Differential Diagnosis COPD/CHF/pneumothorax/pneumonia Lab Data [facility] Lab Attestation statement: I reviewed the patient's lab results. 09/22/22 03:01 09/22/22 03:01 Labs: Lab Results 09/22/22 09/22/22 09/22/22 Range/Units 03:01 03:01 03:01 WBC 8.3 (4.8-10.8) X10*3/uL RBC 3.77 L (4.60-5.80) X10*6/uL Hgb 12.8 L (14.0-18.0) g/dl Hct 38.6 L (42.0-52.0) % MCV 102.4 H (80.0-98.0) fL MCH 34.0 H (27.0-33.0) pg MCHC 33.2 (31.0-36.0) g/dl RDW 12.0 (11.0-16.0) % Plt Count 215 (160-400) X10*3/uL MPV 10.4 (9.4-12.4) fL Immature Gran % (Auto) 0.4 (0.0-0.4) % Neut % (Auto) 59.8 (45-73) % Lymph % (Auto) 23.1 (20-40) % [place] % (Auto) 9.9 (2-11) % Eos % (Auto) 6.3 H (0-4) % Baso % (Auto) 0.5 (0-2) % Lymph # (Auto) 1.9 (1.2-4.9) X10*3/uL [place] # (Auto) 0.8 (0.1-1.2) X10*3/uL Eos # (Auto) 0.5 H (0.0-0.4) X10*3/uL Baso # (Auto) 0.0 (0.0-0.2) X10*3/uL Abs Immat Gran (auto) 0.03 (0.00-0.03) X10*3/uL Absolute Neuts (auto) 5.0 (2.0-8.3) x10*3/uL Absolute Nucleated RBC 0.000 (0.0-0.012) X10*3/uL Nucleated RBC % (auto) 0.0 (0.0-0.2) /100WBC VBG pH (7.32-7.43) VBG pCO2 mmHg VBG pO2 mmHg VBG HCO3 (22-26) mmol/L VBG O2 Saturation % VBG Base Excess mmol/L Sodium 145 (135-145) mmol/L Potassium 4.0 (3.3-5.1) mmol/L Chloride 108 (96-108) mmol/L Carbon Dioxide 28 (22-29) mmol/L Anion Gap 13 (12-20) BUN 15 (9-16) mg/dL Creatinine 1.02 (0.5-1.4) mg/dL Estim Creat Clear Calc 68.3 Estimated GFR > 60 Random Glucose 116 H (60-115) mg/dL Calcium 8.9 (8.4-10.2) mg/dL Total Bilirubin 0.9 (0.0-1.0) mg/dL AST 24 (5-37) U/L ALT 27 (0-40) U/L Alkaline Phosphatase 59 (39-117) U/L Total Protein 6.7 (6.5-8.0) g/dL Albumin 4.2 (3.5-5.0) g/dL COVID-19 ([facility]) Negative (Negative) COVID-19 Clin Com See Note Influenza Type A ([facility]) (Negative) Influenza Type B ([facility]) (Negative) Influenza A & B Note 09/22/22 09/22/22 Range/Units 03:01 03:48 WBC (4.8-10.8) X10*3/uL RBC (4.60-5.80) X10*6/uL Hgb (14.0-18.0) g/dl Hct (42.0-52.0) % MCV (80.0-98.0) fL MCH (27.0-33.0) pg MCHC (31.0-36.0) g/dl RDW (11.0-16.0) % Plt Count (160-400) X10*3/uL MPV (9.4-12.4) fL Immature Gran % (Auto) (0.0-0.4) % Neut % (Auto) (45-73) % Lymph % (Auto) (20-40) % [place] % (Auto) (2-11) % Eos % (Auto) (0-4) % Baso % (Auto) (0-2) % Lymph # (Auto) (1.2-4.9) X10*3/uL [place] # (Auto) (0.1-1.2) X10*3/uL Eos # (Auto) (0.0-0.4) X10*3/uL Baso # (Auto) (0.0-0.2) X10*3/uL Abs Immat Gran (auto) (0.00-0.03) X10*3/uL Absolute Neuts (auto) (2.0-8.3) x10*3/uL Absolute Nucleated RBC (0.0-0.012) X10*3/uL Nucleated RBC % (auto) (0.0-0.2) /100WBC VBG pH 7.31 L (7.32-7.43) VBG pCO2 55 mmHg VBG pO2 175 mmHg VBG HCO3 28 H (22-26) mmol/L VBG O2 Saturation 100.0 % VBG Base Excess 1.3 mmol/L Sodium (135-145) mmol/L Potassium (3.3-5.1) mmol/L Chloride (96-108) mmol/L Carbon Dioxide (22-29) mmol/L Anion Gap (12-20) BUN (9-16) mg/dL Creatinine (0.5-1.4) mg/dL Estim Creat Clear Calc Estimated GFR Random Glucose (60-115) mg/dL Calcium (8.4-10.2) mg/dL Total Bilirubin (0.0-1.0) mg/dL AST (5-37) U/L ALT (0-40) U/L Alkaline Phosphatase (39-117) U/L Total Protein (6.5-8.0) g/dL Albumin (3.5-5.0) g/dL COVID-19 ([facility]) (Negative) COVID-19 Clin Com Influenza Type A ([facility]) Negative (Negative) Influenza Type B ([facility]UBEN) Negative (Negative) Influenza A & B Note See Note Discharge Plan Discharge Clinical Impression: Acute and chronic respiratory failure with hypoxia, Chronic lung disease Patient Disposition: Admitted As Inpatient
[2022-09-22 03:21] LABS: COVID-19 Test Negative (Negative); IDNOW Serial# 08D9AD1C; IDNOW Serial# BCCEAD1C; Influenza A Negative (Negative); Influenza B2 Negative (Negative)
[2022-09-22 03:28] LABS: Alanine Aminotransferase 27 U/L (0-40); Albumin Level 4.2 g/dL (3.5-5.0); Alkaline Phosphatase 59 U/L (39-117); Anion Gap 13 (12-20); Aspartate Amino Transferase 24 U/L (5-37); Bilirubin Total 0.9 mg/dL (0.0-1.0); Blood Urea Nitrogen 15 mg/dL (9-16); Calcium 8.9 mg/dL (8.4-10.2); Carbon Dioxide 28 mmol/L (22-29); Chloride 108 mmol/L (96-108); Creatinine Clr Calc Pharmacy 68.3; Estimated Glomerular Filt Rate > 60; Glucose Random 116 mg/dL (60-115); Sodium 145 mmol/L (135-145); Total Protein 6.7 g/dL (6.5-8.0)
--- NOTE | 2022-09-22 03:30 | PC.NURSE ---
Pt aox4. Breaths are labored. Placed on bipap 40% O2. O2 sat 98%, RR 24. Bilateral inspiratory and expiratory wheezes througout. Sinus tach on monitor with hr 132. Resp at bedside.
[2022-09-22 03:54] LABS: Venous Blood Gas Refer to POC result
[2022-09-22 03:55] LABS: VBG Base Excess 1.3 mmol/L; VBG HCO3 28 mmol/L (22-26); VBG pCO2 55 mmHg; VBG pH 7.31 (7.32-7.43); VBG pO2 175 mmHg
[2022-09-22] MEDS: Magnesium Sulfate/H2O 2 GM/50 ML PIGGYBACK IV (04:02)
--- NOTE | 2022-09-22 04:13 | PC.NURSE ---
Med req completed.
[2022-09-22] MEDS: Enoxaparin Sodium 40 MG/0.4 ML SYRINGE SUBCUT (05:12)
--- NOTE | 2022-09-22 05:44 | PM.CCHP ---
History of Present Illness Date of Service: 09/22/22 Attending physician on admission: Rupert Diaz Chief Complaint: Dyspnea Mr. Parnell is a 67-year-old male with past medical history of COPD with PRN O2, GERD, HLD, HTN who was brought in by ambulance to the emergency room with increased shortness of breath that began yesterday. He received no relief after nebulizer treatment at home and therefore called EMS who gave him a DuoNeb treatment en route. On arrival to the emergency room,? temp was 96.9,? heart rate 114, blood pressure 131/104, respiratory rate 27, O2 sat 98% on 7 L aerosol mask. Laboratory data was significant for a venous? pH of 7.31, pCO2 55, PO2 175, HC03 28. ? COVID-19 negative, influenza negative. Imaging: CXR: The lungs are clear with no focal consolidation. No evidence of pneumothorax, pulmonary edema, or pleural effusions. The cardiomediastinal silhouette is unremarkable. No acute osseous findings. ED COURSE: Patient received a nebulizer treatment, Solu-Medrol 125 mg, Magnesium sulfate? 2 g, and was placed on rescue BiPAP for respiratory support. The patient was admitted to ICU with acute respiratory failure for continued respiratory support. Review of Systems Review of Systems: Yes all other systems are reviewed and are negative Constitutional: Constitutional: Reports as per HPI Respiratory: Respiratory: Reports no additional respiratory complaints KAILEE Past Medical History Medical History (Updated 09/22/22 @ 05:55 by Irene White NP) COPD exacerbation GERD (gastroesophageal reflux disease) HLD (hyperlipidemia) Hypertension Hypertension Functional capacity: independent ambulation Surgical History Surgical History History of appendectomy Social History Social History Household Members: None Household Members Other:: daughter lives next door Housing: House Do you presently have visiting nurse or other home services: No Alcohol intake: current Alcohol intake frequency: does not drink Alcohol type: beer Patient Tobacco Use Status: Former Tobacco user Quit Date: 12/03/21 Tobacco use type: Cigarette Years Smoked: 40 e-Cigarette/Vaping Use: Never Used Second Hand Smoke Exposure: No Advance Directives Date on File: 02/26/22 service: No Current occupational status: employed Meds Allergies Allergy/AdvReac Type Severity Reaction Status Date / Time No Known Allergies Allergy Verified 09/22/22 03:00 Active Medications: Current Medications Albuterol/Ipratropium (Albuterol/Iprat 2.5/0.5mg 3 Ml Ampul.Neb) 3 ml INHALE RQ4H WHILE AWAKE [facility] Enoxaparin Sodium (Enoxaparin Sodium 40 Mg/0.4 Ml Syringe) 40 mg SUBCUT DAILY@0800 [facility] Last Admin: 09/22/22 05:12 Dose: 40 mg Home Medications Medication Instructions Recorded Confirmed Last Taken Type atorvastatin 10 mg tablet 1 tab PO DAILY 01/31/21 09/22/22 12/29/21 History doxazosin 2 mg tablet 1 tab PO DAILY 01/31/21 09/22/22 12/29/21 History losartan 50 mg tablet 1 tab PO DAILY 01/31/21 09/22/22 12/29/21 History multivitamin 1 tab PO DAILY 01/31/21 09/22/22 12/29/21 History omeprazole 20 mg capsule,delayed 20 mg PO DAILY@0630 01/31/21 09/22/22 12/29/21 History release amlodipine 2.5 mg tablet 2.5 mg PO DAILY 08/19/22 09/22/22 Unknown History Physical Exam Vital Signs: Vital Signs: Last Vital Signs Temp 96.9 F 09/22/22 02:50 Pulse 110 H 09/22/22 05:14 Resp 17 09/22/22 05:14 BP 156/86 H 09/22/22 05:14 Pulse Ox 98 09/22/22 05:14 O2 Del Method BiPAP 09/22/22 05:14 O2 Flow Rate 7 09/22/22 02:50 BMI result Body Mass Index 25.7 Const: General: cooperative, comfortable, no acute distress, alert and well groomed Nutritional Appearance: average body habitus and well nourished Orientation/consciousness: patient oriented x3 Limitations: no limitations HEENT: Head: Yes normocephalic and Yes atraumatic General nose exam: Normal external nose present (Nares patent, septum midline, sinuses nontender bilaterally.) Mouth: Normal oral and palatal mucosa present (No thrush, tongue in midline, mucosa moist.) Throat: Yes other (No erythema, no exudate.) Eyes: Pupils: Equal, round and reactive pupils present Neck: Neck: Yes supple (no thyromegaly, trachea midline.) Carotids: normal carotid upstroke Resp: Auscultation: wheezes (normal work of breathing, no accessory muscle use) expiratory wheezes and throughout Cardio: Jugular venous distension: no JVD Rate: tachycardic Rhythm: regular rhythm Heart sounds: no gallops, no murmurs and no rubs Peripheral pulses: Peripheral pulses 2+ throughout GI: Palpation (GI): Soft to palpation (nondistended.) and nontender Skin: General skin exam: no rashes or lesions noted Neuro: General: patient oriented x3 Cranial nerves: Yes CN's II-XII intact bilaterally and Yes Equal, round and reactive pupils present Extrem: General: Yes full ROM, Yes capillary refill normal and Yes no clubbing, cyanosis or edema Psych: Appearance: grossly normal Mental Status: mental status grossly normal Speech and movement: Normal speech and movement present Affect: normal affect Attitude: cooperative Thought process: Normal thought process present Thought content: Normal thought content present Insight: Good insight present (Psych) Judgement: Good judgement present (Psych) Results Labs 09/22/22 03:01 09/22/22 03:01 Labs: Laboratory Results - last 24 hr 09/22/22 09/22/22 09/22/22 03:01 03:01 03:01 MCV 102.4 H MCH 34.0 H MCHC 33.2 RDW 12.0 Plt Count 215 MPV 10.4 Immature Gran % (Auto) 0.4 Neut % (Auto) 59.8 Lymph % (Auto) 23.1 [place] % (Auto) 9.9 Eos % (Auto) 6.3 H Baso % (Auto) 0.5 Lymph # (Auto) 1.9 [place] # (Auto) 0.8 Eos # (Auto) 0.5 H Baso # (Auto) 0.0 Abs Immat Gran (auto) 0.03 Absolute Neuts (auto) 5.0 Absolute Nucleated RBC 0.000 Nucleated RBC % (auto) 0.0 VBG pH VBG pCO2 VBG pO2 VBG HCO3 VBG O2 Saturation VBG Base Excess Anion Gap 13 Estim Creat Clear Calc 68.3 Estimated GFR > 60 Random Glucose 116 H Calcium 8.9 Total Bilirubin 0.9 AST 24 ALT 27 Alkaline Phosphatase 59 Total Protein 6.7 Albumin 4.2 COVID-19 (GWYN) Negative COVID-19 Clin Com See Note Influenza Type A (RUBEN) Influenza Type B (RUBEN) Influenza A & B Note 09/22/22 09/22/22 03:01 03:48 MCV MCH MCHC RDW Plt Count MPV Immature Gran % (Auto) Neut % (Auto) Lymph % (Auto) [place] % (Auto) Eos % (Auto) Baso % (Auto) Lymph # (Auto) [place] # (Auto) Eos # (Auto) Baso # (Auto) Abs Immat Gran (auto) Absolute Neuts (auto) Absolute Nucleated RBC Nucleated RBC % (auto) VBG pH 7.31 L VBG pCO2 55 VBG pO2 175 VBG HCO3 28 H VBG O2 Saturation 100.0 VBG Base Excess 1.3 Anion Gap Estim Creat Clear Calc Estimated GFR Random Glucose Calcium Total Bilirubin AST ALT Alkaline Phosphatase Total Protein Albumin COVID-19 (GWYN) COVID-19 Clin Com Influenza Type A (RUBEN) Negative Influenza Type B (RUBEN) Negative Influenza A & B Note See Note Imaging Radiologist's Impressions: Impressions Chest X-Ray 09/22/22 03:22 IMPRESSION: No acute cardiopulmonary findings. Assessment and Plan (1) Acute and chronic respiratory failure with hypoxia: Status: Acute (2) Chronic lung disease: Status: Acute (3) Hypertension: Status: Acute Plan 67-year-old male with past medical history of COPD oxygen-dependent, GERD, HLD, HTN ? presented with worsening shortness of breath likely due to chronic lung disease. Neuro:? no acute issues. Cardiac: ? Tachycardia,? hypertension.? Continue home antihypertensives once patient is off BiPAP. Pulmonary:? ?Acute respiratory failure with history of COPD. ? Received systemic steroids, ? Magnesium in the ER.? Scheduled and p.r.n. DuoNebs. Continue BiPAP. ? Monitor VBG.? maintain oxygen saturation 88-92%. Renal:? No acute issues. Endo: ?No acute issues.?? GI:? no acute issues. ID: ? No acute issues. Heme/Onc:? No acute issues. Psych:? No acute issues. Miscellaneous:? No acute issues. Prophylaxis:? Lovenox Diet:? NPO? Time Spent With Patient Time: Total time managing care of this patient today ____ minutes.
--- NOTE | 2022-09-22 05:51 | PC.NURSE ---
Nurse report given to SHEYLA Velasquez. Pt being transferred to ICU bed 254 and aware of plan of care.
[2022-09-22 06:00] LABS: VBG Base Excess 1.3 mmol/L; VBG HCO3 28 mmol/L (22-26); VBG pCO2 52 mmHg; VBG pH 7.33 (7.32-7.43); VBG pO2 38 mmHg
[2022-09-22] MEDS: Omeprazole 20 MG CAPSULE.DR PO (06:27)
--- NOTE | 2022-09-22 06:30 | PC.NURSE ---
Assumed care from Ed [id number] pt a&o x4, St on tele, bipap removed in ED placed on 2 L NC sats 95%, titrated down to 1LNC per [employer] for goal of 88-93%. LS insp & expiratory Wheezes, solo cath inplace draingn clear yellow urine, high fall risk precations in place.
--- NOTE | 2022-09-22 07:15 | PHA.MEDREC ---
Pharmacy Consult ? Medication Reconciliation Pharmacy has completed the medication reconciliation. Pharmacy has reviewed med rec done by nursing.
[2022-09-22 07:54] LABS: Venous Blood Gas Refer to POC result
[2022-09-22] MEDS: Albuterol/Iprat 2.5/0.5MG 3 ML AMPUL.NEB INHALE ×4 (07:59→19:34)
[2022-09-22] MEDS: Multivitamin TABLET 1 TAB PO (08:19)
[2022-09-22] MEDS: amLODIPine Besylate 2.5 MG TABLET PO (08:19)
[2022-09-22] MEDS: Losartan Potassium 50 MG TABLET PO (08:19)
[2022-09-22] MEDS: Doxazosin Mesylate 2 MG TABLET PO (08:19)
[2022-09-22] MEDS: Atorvastatin Calcium 10 MG TABLET PO (08:19)
[2022-09-22] MEDS: Metoprolol Succinate ER 50 MG TAB.ER.24H PO (09:10)
--- NOTE | 2022-09-22 10:06 | MHC.CM.PN ---
Met with pt to discuss d/c planning needs: pt resides alone, has [employer] for nebulizer needs: active, works PT and drives. No additional services anticipated: PCP Dr. Britt: HCP on file and verified: IMM in chart. Pt will contact family to transport to home.
[2022-09-22] MEDS: methylPREDNISolone Sod Succ 40 MG/ML VIAL IVPUSH (17:27)
[2022-09-23] VITALS (10 sets, daily range): BP systolic 120–155; BP diastolic 54–70; PULSE 79–115; RESP 18–20; TEMP 36.5–37.1; O2SAT 90–96
[2022-09-23] MEDS: Albuterol/Iprat 2.5/0.5MG 3 ML AMPUL.NEB INHALE ×5 (02:03→20:20)
[2022-09-23] MEDS: methylPREDNISolone Sod Succ 40 MG/ML VIAL IVPUSH ×2 (05:54→16:41)
[2022-09-23] MEDS: Omeprazole 20 MG CAPSULE.DR PO (05:54)
[2022-09-23] MEDS: Acetaminophen 325 MG TABLET 650 MG PO (06:18)
[2022-09-23] MEDS: Enoxaparin Sodium 40 MG/0.4 ML SYRINGE SUBCUT (08:31)
[2022-09-23] MEDS: Multivitamin TABLET 1 TAB PO (08:32)
[2022-09-23] MEDS: Atorvastatin Calcium 10 MG TABLET PO (08:32)
[2022-09-23] MEDS: Losartan Potassium 50 MG TABLET PO (08:32)
[2022-09-23] MEDS: Metoprolol Succinate ER 50 MG TAB.ER.24H PO (08:32)
[2022-09-23] MEDS: amLODIPine Besylate 2.5 MG TABLET PO (08:32)
[2022-09-23] MEDS: Doxazosin Mesylate 2 MG TABLET PO (08:32)
--- NOTE | 2022-09-23 11:52 | P.PNIM_ITS ---
Subjective Subjective Date of Service: 09/23/22 Interval History: Seen and evaluated feels better weaning down O2 still wheezy no other overnight events Review of Systems Review of Systems: Yes all other systems are reviewed and are negative Physical Exam Vital Signs: Vital Signs: Last Vital Signs Temp 97.7 F 09/23/22 07:27 Pulse 84 09/23/22 11:38 Resp 18 09/23/22 11:38 BP 140/64 H 09/23/22 07:27 Pulse Ox 92 09/23/22 07:27 O2 Del Method Room Air 09/23/22 07:27 O2 Flow Rate 1 09/22/22 07:00 BMI result Body Mass Index 25.9 Const: Other: Constitutional : Awake, interactive, not in distress Neck : Normal inspection, Supple Cardiovascular : RRR, no JVP, no lower extremity edema Respiratory : decrease bilateral air entry, no crackles, bilateral expiratory wheezing Gastrointestinal: soft, lax, Normal bowel sounds, Non tender Skin : Warm, Dry Neurological : Alert & oriented x3, No focal deficit Objective Data Active Medications Acetaminophen (Acetaminophen 325 Mg Tablet) 650 mg PO Q6H PRN PRN Reason: Pain, Mild (Pain Scale 1-3) Last Admin: 09/23/22 06:18 Dose: 650 mg Documented By: ZULEYMA Albuterol/Ipratropium (Albuterol/Iprat 2.5/0.5mg 3 Ml Ampul.Neb) 3 ml INHALE RQ4H WHILE AWAKE [facility] Last Admin: 09/23/22 11:37 Dose: 3 ml Documented By: HECTOR Albuterol/Ipratropium (Albuterol/Iprat 2.5/0.5mg 3 Ml Ampul.Neb) 3 ml INHALE Q4H PRN PRN Reason: Wheezing Last Admin: 09/23/22 02:03 Dose: 3 ml Documented By: ZULEYMA Amlodipine Besylate (Amlodipine Besylate 2.5 Mg Tablet) 2.5 mg PO DAILY [facility]; Protocol Last Admin: 09/23/22 08:32 Dose: 2.5 mg Documented By: ANDREA Atorvastatin Calcium (Atorvastatin Calcium 10 Mg Tablet) 10 mg PO DAILY [facility] Last Admin: 09/23/22 08:32 Dose: 10 mg Documented By: ANDREA Doxazosin Mesylate (Doxazosin Mesylate 2 Mg Tablet) 2 mg PO DAILY [facility]; Protocol Last Admin: 09/23/22 08:32 Dose: 2 mg Documented By: ANDREA Enoxaparin Sodium (Enoxaparin Sodium 40 Mg/0.4 Ml Syringe) 40 mg SUBCUT DAILY@0800 [facility] Last Admin: 09/23/22 08:31 Dose: 40 mg Documented By: ANDREA Losartan Potassium (Losartan Potassium 50 Mg Tablet) 50 mg PO DAILY [facility]; Protocol Last Admin: 09/23/22 08:32 Dose: 50 mg Documented By: ANDREA Methylprednisolone Sodium Succinate (Methylprednisolone Sod Succ 40 Mg/Ml Vial) 40 mg IVPUSH Q12H [facility] Last Admin: 09/23/22 05:54 Dose: 40 mg Documented By: ZULEYMA Metoprolol Succinate (Metoprolol Succinate Er 50 Mg Tab.Er.24h) 50 mg PO DAILY [facility]; Protocol Last Admin: 09/23/22 08:32 Dose: 50 mg Documented By: ANDREA Multivitamins/Vitamin C (Multivitamin Tablet) 1 tab PO DAILY [facility] Last Admin: 09/23/22 08:32 Dose: 1 tab Documented By: ANDREA Omeprazole (Omeprazole 20 Mg Capsule.) 20 mg PO DAILY@0630 [facility] Last Admin: 09/23/22 05:54 Dose: 20 mg Documented By: ZULEYMA Labs 09/22/22 03:01 09/22/22 03:01 Assessment and Plan (1) Acute and chronic respiratory failure with hypoxia: Status: Acute (2) COPD exacerbation: Status: Acute Plan 67-year-old male with past medical history of COPD oxygen-dependent, GERD, HLD, HTN ? presented with worsening shortness of breath likely due to chronic lung disease. Acute hypoxic respiratory failure 2/2 COPD exacerbatuib continue systemic steroids ATC and p.r.n. DuoNebs Monitor VBG as needed ? maintain oxygen saturation 88-92%. wean O2 as tolerated HTN Home meds DVT PPX Lovenox Patient needs overnight hospital stay for Dyspnea and wheezing pending clinical improvement. Time Spent With Patient Time: Total time managing care of this patient today ____ minutes. Quality Stroke Does the patient have a stroke diagnosis?: No VTE Prior VTE?: No VTE Risk Level:: Medical - moderate - high VTE Device Contraindication: N/A - Device Ordered VTE Drug Contraindication: N/A - Med Ordered
--- NOTE | 2022-09-23 12:14 | MHC.CM.PN ---
EMR reviewed and per MD rounds, anticipating D/C back home with existing [facility] tomorrow. CM will continue to follow for discharge.
[2022-09-24 03:39] VITALS: BP 132/57; PULSE 80; RESP 18; TEMP 36.6; O2SAT 92
[2022-09-24] MEDS: Omeprazole 20 MG CAPSULE.DR PO (05:28)
[2022-09-24] MEDS: methylPREDNISolone Sod Succ 40 MG/ML VIAL IVPUSH (05:29)
[2022-09-24] MEDS: Albuterol/Iprat 2.5/0.5MG 3 ML AMPUL.NEB INHALE ×3 (05:40→11:58)
[2022-09-24 07:55] VITALS: BP 158/70; PULSE 78; RESP 18; TEMP 36.9; O2SAT 91
[2022-09-24] MEDS: amLODIPine Besylate 2.5 MG TABLET PO (08:21)
[2022-09-24] MEDS: Atorvastatin Calcium 10 MG TABLET PO (08:21)
[2022-09-24] MEDS: Doxazosin Mesylate 2 MG TABLET PO (08:21)
[2022-09-24] MEDS: Metoprolol Succinate ER 50 MG TAB.ER.24H PO (08:21)
[2022-09-24] MEDS: Multivitamin TABLET 1 TAB PO (08:21)
[2022-09-24] MEDS: Losartan Potassium 50 MG TABLET PO (08:21)
[2022-09-24 09:42] VITALS: PULSE 78; RESP 18; O2SAT 91
--- NOTE | 2022-09-24 10:37 | MHC.CM.PN ---
EMR reviewed and per MD rounds, pt medically cleared for D/C home today, family to transport.
--- NOTE | 2022-09-24 11:07 | PM.DS ---
DS: Providers Provider Date of Service: 09/24/22 Date of admission: 09/22/22 04:25 Primary care physician: Feliberto Britt MD DS: Diagnosis Discharge Diagnosis (1) Acute and chronic respiratory failure with hypoxia: Status: Acute (2) COPD exacerbation: Status: Acute DS: Summary Hospital Course Hospital Course: Admission note HPI from ICU provider. Mr. Parnell is a 67-year-old male with past medical history of COPD with PRN O2, GERD, HLD, HTN who was brought in by ambulance to the emergency room with increased shortness of breath that began yesterday. He received no relief after nebulizer treatment at home and therefore called EMS who gave him a DuoNeb treatment en route. On arrival to the emergency room,? temp was 96.9,? heart rate 114, blood pressure 131/104, respiratory rate 27, O2 sat 98% on 7 L aerosol mask. Laboratory data was significant for a venous? pH of 7.31, pCO2 55, PO2 175, HC03 28. ? COVID-19 negative, influenza negative. Imaging: CXR: The lungs are clear with no focal consolidation. No evidence of pneumothorax, pulmonary edema, or pleural effusions. The cardiomediastinal silhouette is unremarkable. No acute osseous findings. ED COURSE: Patient received a nebulizer treatment, Solu-Medrol 125 mg, Magnesium sulfate? 2 g, and was placed on rescue BiPAP for respiratory support. The patient was admitted to ICU with acute respiratory failure for continued respiratory support. Hospital course The patient was admitted to ICU for BiPAP support for hypoxia and dyspnea with no hypercapnia. improved significantly with usage of systamic steroids and nebulizers. weaned down O2 supplement to RA maintaning O2 sat around 90. he has home O2 and uses 2L as needed. was able to ambulate on RA with no reported dyspnea or SOB. will be discharged on tapering dose steroids and nebulizer treatment. Use Oxygen for the next few days , goal of Oxygen level 90-94% Continue prednisone tapering dose as prescribed Continue Nebulizers every 4-6 hours for the next few days then as needed Time Spent with Patient Time attestation: Total time managing care of this patient today ____ minutes. Discharge coordination time: Greater than 30 minutes Quality: Safe Use of Opioids Does Pt have an Active Cancer Diagnosis on the Problem List?: No Quality: Stroke Does the patient have a stroke diagnosis?: No Physical Exam Vital Signs: Vital Signs: Last Vital Signs Temp 98.4 F 09/24/22 07:55 Pulse 78 09/24/22 09:42 Resp 18 09/24/22 09:42 BP 158/70 H 09/24/22 07:55 Pulse Ox 91 L 09/24/22 07:55 O2 Del Method Nasal Cannula 09/24/22 07:55 O2 Flow Rate 2 09/24/22 07:55 BMI result Body Mass Index 25.9 Const: Other: Constitutional : Awake, interactive, not in distress Neck : Normal inspection, Supple Cardiovascular : RRR, no JVP, no lower extremity edema Respiratory : fair bilateral air entry, no crackles, scattered bilateral expiratory wheezing Gastrointestinal: soft, lax, Normal bowel sounds, Non tender Skin : Warm, Dry Neurological : Alert & oriented x3, No focal deficit DS: Data Imaging Chest x-ray: Radiologist's impression: ITS Impressions Chest X-Ray 09/22/22 03:22 IMPRESSION: No acute cardiopulmonary findings. Discharge Plan Discharge Anticipated Discharge Date/Time: 09/24/22 11:01 Patient Disposition: Home, Self-Care Discharge Diagnosis: COPD exacerbation Referrals: Feliberto Britt MD [Primary Care Provider] - 1 Week Discharge Medications: New ipratropium-albuterol 0.5 mg-3 mg(2.5 mg base)/3 mL Solution For Nebulization 3 ml inhalation Q4H PRN (Reason: Wheezing) Qty: 300 0RF prednisone 10 mg tablet See Taper PO DIRECTED Qty: 30 0RF Taper: Prednisone 40 mg daily for 3 Days and 0 Hour 30 mg daily for 3 Days and 0 Hour 20 mg daily for 3 Days and 0 Hour 10 mg daily for 3 Days and 0 Hour Rx Instructions: see taper instructions Continued multivitamin Tablet 1 tab PO DAILY losartan 50 mg tablet 1 tab PO DAILY atorvastatin 10 mg tablet 1 tab PO DAILY omeprazole 20 mg Capsule,Delayed Release(Dr/Ec) 20 mg PO DAILY@0630 doxazosin 2 mg tablet 1 tab PO DAILY albuterol sulfate [Proventil HFA] 90 mcg/actuation HFA aerosol inhaler 2 puff inhalation QID PRN (Reason: shortness of breath or wheezing) Qty: 8.5 2RF (DME) Aerochamber MV Spacer See Rx Instructions .Route Qty: 10 0RF Rx Instructions: As directed amlodipine 2.5 mg tablet 2.5 mg PO DAILY Discharge Orders: Discharge Order (Routine); Ordered 09/24/22 Ordered By: Noemi Noriega Diet: Advance to usual diet Activity on Discharge: As tolerated Stand Alone Forms: Patient Portal Discharge page Care Plan Goals: Read below Health Concerns: Read below Plan of Treatment: Read below Assessment: Use Oxygen for the next few days , goal of Oxygen level 90-94% Continue prednisone tapering dose as prescribed Continue Nebulizers every 4-6 hours for the next few days then as needed
[2022-09-24 11:13] VITALS: BP 143/65; PULSE 79; RESP 18; TEMP 37; O2SAT 92
[2022-09-24 11:59] VITALS: PULSE 91; RESP 18; O2SAT 92
== END 2022-09-24 14:21 | disposition home or self-care (01) | DRG 190 ==
LOC: HO.ED 04:22 → HO.EDOVER 04:35 → HO.ICU 04:50 → HO.IMC 16:50
PROVIDERS: Internal Medicine Pulmonary Disease; Student in an Organized Health Care Education/Training Program; Admitting Provider Nurse Practitioner Family; Emergency Provider Internal Medicine; PCP Internal Medicine; Visit Provider Student in an Organized Health Care Education/Training Program
DX: J44.1 Chronic obstructive pulmonary disease with (acute) exacerbation (principal); J96.21 Acute and chronic respiratory failure with hypoxia; E78.5 Hyperlipidemia, unspecified; I10 Essential (primary) hypertension; Z20.822 Contact with and (suspected) exposure to COVID-19; Z99.81 Dependence on supplemental oxygen; Z87.891 Personal history of nicotine dependence; Z79.899 Other long term (current) drug therapy
CPT/HCPCS: 36415; 71045; 80053; 82803; 85025; 87502; 87635; 94640; 99285; C1758; J1650; J2920; J2930; J3475

== ENCOUNTER 2022-10-24 03:36 | Emergency (ER) | payer MEDICARE, SELFPAY ==
--- NOTE | ~2022-10-24 | XR_ITS ---
EXAMINATION: XR CHEST CLINICAL INFORMATION: Shortness of breath COMPARISON: 09/22/2022 TECHNIQUE: Frontal view of the chest was obtained. FINDINGS: The lungs are hyperinflated and appear clear without focal consolidation. No evidence of pneumothorax, pleural effusion, or pulmonary edema. Cardiac size is within normal limits. Calcification is present at the aortic arch. No acute osseous findings are seen. XR/XR chest 1V IMPRESSION: No acute cardiopulmonary findings. Hyperinflated lungs suggesting COPD.
[2022-10-24 03:39] VITALS: BP 157/85; PULSE 120; RESP 18; O2SAT 92; BMI 25.2
--- NOTE | 2022-10-24 03:39 | ECG_ITS ---
Test Reason : DYSPENA Blood Pressure : / mmHG Vent. Rate : 100 BPM Atrial Rate : 100 BPM P-R Int : 152 ms QRS Dur : 106 ms QT Int : 366 ms P-R-T Axes : 087 085 062 degrees QTc Int : 472 ms Normal sinus rhythm Normal ECG When compared with ECG of 02-SEP-2022 01:10, No significant change was found Referred By: Generic ED Physician Electronically Signed By:Kvng Sanchez
--- NOTE | 2022-10-24 03:48 | ED.SOB ---
HPI - SOB/Dyspnea General Chief Complaint: Dyspnea Stated Complaint: SOB Time Seen by Provider: 10/24/22 03:46 Source: patient and EMS Mode of arrival: EMS Limitations: no limitations History of Present Illness HPI Narrative: Patient comes to the emergency room complaining of shortness of breath. Patient states a few hours ago patient started complaining of wheezing, patient gave himself for breathing treatments prior to arrival. However, patient was still wheezing and feeling very tight. Patient denies chest pain, no recent URI or UTI symptoms, all of the symptoms started a few hours ago. Related Data Home Medications Medication Instructions Recorded Confirmed atorvastatin 10 mg tablet 1 tab PO DAILY 01/31/21 09/22/22 doxazosin 2 mg tablet 1 tab PO DAILY 01/31/21 09/22/22 losartan 50 mg tablet 1 tab PO DAILY 01/31/21 09/22/22 multivitamin 1 tab PO DAILY 01/31/21 09/22/22 omeprazole 20 mg capsule,delayed 20 mg PO DAILY@0630 01/31/21 09/22/22 release amlodipine 2.5 mg tablet 2.5 mg PO DAILY 08/19/22 09/22/22 Previous Rx's Medication Instructions Recorded albuterol sulfate 90 mcg/actuation 2 puff inhalation QID PRN 12/01/21 aerosol inhaler (Proventil HFA) shortness of breath or wheezing #8.5 grams inhalational spacing device #10 ea 12/01/21 (Aerochamber MV spacer) ipratropium 0.5 mg-albuterol 3 mg 3 ml inhalation Q4H PRN Wheezing 09/24/22 (2.5 mg base)/3 mL nebulization #300 mL soln prednisone 10 mg tablet See Taper PO DIRECTED #30 tabs 09/24/22 prednisone 50 mg tablet 50 mg PO DAILY #4 tabs 10/24/22 Allergies Allergy/AdvReac Type Severity Reaction Status Date / Time No Known Allergies Allergy Verified 09/22/22 03:00 Review of Systems Review of Systems: Constitutional : No Weight loss, No Fever, No Chills, No Night Sweats, No Fatigue, No Malaise ENT/Mouth : No Hearing loss, No Ear Pain, No Nasal Congestion, No Sinus Pain, No Hoarseness, No sore throat, No Rhinorrhea, No Swallowing Difficulty Eyes: No Eye Pain, No Swelling, No Redness, No Foreign Body, No Discharge, No Vision Changes Cardiovascular : No Chest Pain, No SOB, No Dyspnea on Exertion, No Orthopnea, No Edema, No Palpitations Respiratory : Complaining of dry cough, wheezing, shortness of breath Gastrointestinal : No Nausea, No Vomiting, No Diarrhea, No Constipation, No abdominal Pain, No Hematochezia, No Melena Genitourinary : no irregular bleeding, No Dysuria, No Urinary Frequency, No Hematuria, No Urinary Incontinence, No Urgency, No Flank Pain, No Urinary Flow Changes, No Hesitancy Musculoskeletal : No joint pain, No Myalgias, No Joint Swelling Skin : No Skin Lesions, No rash Neuro : No Weakness, No Numbness, No Paresthesias, No Loss of Consciousness, No Dizziness, No Headache Psych : No Anxiety/Panic, No Depression, No SI/HI/AH/VH, No Social Issues, Heme/Lymph: No Bruising, No Bleeding,No Lymphadenopathy Endocrine : No Polyuria, No Polydipsia, No Temperature Intolerance [facility] Past Medical History Medical History (Updated 10/24/22 @ 05:30 by Stephania Saez MD) Asthma exacerbation Chronic lung disease COPD exacerbation GERD (gastroesophageal reflux disease) HLD (hyperlipidemia) Hypertension Hypertension Surgical History History of appendectomy Social History Social History Household Members: None Household Members Other:: daughter lives next door Housing: House Do you presently have visiting nurse or other home services: No Alcohol intake: current Alcohol intake frequency: does not drink Alcohol type: beer Patient Tobacco Use Status: Former Tobacco user Quit Date: 12/03/21 Tobacco use type: Cigarette Years Smoked: 40 e-Cigarette/Vaping Use: Never Used Second Hand Smoke Exposure: No Advance Directives: Yes Advance Directives on File: Yes Advance Directives Date on File: 02/26/22 service: No Current occupational status: employed Physical Exam Vital Signs: Vital Signs: Last Vital Signs Temp 98.2 F 10/24/22 05:07 Pulse 87 10/24/22 05:07 Resp 14 10/24/22 05:07 BP 105/66 10/24/22 05:07 Pulse Ox 94 10/24/22 05:07 O2 Del Method Nasal Cannula 10/24/22 05:07 O2 Flow Rate 2 10/24/22 05:07 Oxygen Flow Rate 2 10/24/22 03:39 BMI result Body Mass Index 25.2 Const: Other: Appearance: Alert. Oriented X3. Moderate distress Eyes: Pupils equal, round and reactive to light. ENT: Pharynx normal. Neck: Normal inspection. Neck supple. No lymph nodes noted. No crepitus CVS: Normal heart rate and rhythm. Pulses normal. Normal S1 and S2 Respiratory: Patient has moderate respiratory distress, patient wheezing, decreased air movement, able to talk in 3-4 words and Abdomen: Soft and nontender. No rigidity. No distention. Skin: Skin warm and dry. Normal skin color. Normal skin turgor. Extremities: No lower extremity edema. No Lacerations. No Rash Neuro: Oriented X 3. No motor deficit. No sensory deficit. Moving all extremities. No slurred speech. CN 2 through 12 grossly intact Psych: calm, cooperative, normal affect Course Course Course Narrative: -patient started on albuterol treatment, Solu-Medrol, magnesium. -all of patient's labs and imaging pending Medications Administered Generic Name Dose Route Start Last Admin Trade Name Freq PRN Reason Stop Dose Admin Magnesium Sulfate 2 gm in 50 mls @ 25 mls/hr 10/24/22 04:19 10/24/22 04:24 Magnesium Sulfate/H2o IV 10/24/22 06:18 25 mls/hr ONCE ONE Administration Discontinued Medications Generic Name Dose Route Start Last Admin Trade Name Freq PRN Reason Stop Dose Admin Methylprednisolone Sodium Succinate 125 mg 10/24/22 04:20 10/24/22 04:24 Methylprednisolone Sod Succ 125 Mg/2 Ml Vial IVPUSH 10/24/22 04:21 125 mg ONCE ONE Administration Medical Decision Making Medical Decision Making MDM Narrative: -patient came in with moderate respiratory distress. Patient has had multiple nebulization treatments without any significant improvement. Admission is being considered. All of patient's labs and imaging pending -I reviewed the patient's laboratory work. White blood cell count within normal limits, lactic acid 0.6, chest x-ray does not show any infiltrates. -my interpretation of chest x-ray: No pneumonia -patient likely had an asthma exacerbation, not a COPD exacerbation. Diabetic so not indicated. -patient was walked around the emergency room, oxygen saturation above 90%. Patient states that he feels very well, back to baseline -patient states that he has all of his medications at home except prednisone Differential Diagnosis Differential Diagnoses: The differential diagnosis associated with the presentation includes (Asthma, COPD, pneumonia) Admission/Observation Consideration of admission/observation: Escalation of care including admission/observation considered Lab Data MDM Lab Attestation statement: I reviewed the patient's lab results. 10/24/22 04:04 10/24/22 04:04 Labs: Lab Results 10/24/22 10/24/22 10/24/22 Range/Units 04:03 04:03 04:03 WBC (4.8-10.8) X10*3/uL RBC (4.60-5.80) X10*6/uL Hgb (14.0-18.0) g/dl Hct (42.0-52.0) % MCV (80.0-98.0) fL MCH (27.0-33.0) pg MCHC (31.0-36.0) g/dl RDW (11.0-16.0) % Plt Count (160-400) X10*3/uL MPV (9.4-12.4) fL Immature Gran % (Auto) (0.0-0.4) % Neut % (Auto) (45-73) % Lymph % (Auto) (20-40) % [place] % (Auto) (2-11) % Eos % (Auto) (0-4) % Baso % (Auto) (0-2) % Lymph # (Auto) (1.2-4.9) X10*3/uL [place] # (Auto) (0.1-1.2) X10*3/uL Eos # (Auto) (0.0-0.4) X10*3/uL Baso # (Auto) (0.0-0.2) X10*3/uL Abs Immat Gran (auto) (0.00-0.03) X10*3/uL Absolute Neuts (auto) (2.0-8.3) x10*3/uL Absolute Nucleated RBC (0.0-0.012) X10*3/uL Nucleated RBC % (auto) (0.0-0.2) /100WBC VBG pH (7.32-7.43) VBG pCO2 mmHg VBG pO2 mmHg VBG HCO3 (22-26) mmol/L VBG O2 Saturation % VBG Base Excess mmol/L Sodium (135-145) mmol/L Potassium (3.3-5.1) mmol/L Chloride (96-108) mmol/L Carbon Dioxide (22-29) mmol/L Anion Gap (12-20) BUN (9-16) mg/dL Creatinine (0.5-1.4) mg/dL Estim Creat Clear Calc Estimated GFR Random Glucose (60-115) mg/dL Lactic Acid 0.6 (0.5-2.0) mmol/L Calcium (8.4-10.2) mg/dL Troponin I High Sens 2.8 (<3.5-35.0) ng/L B-Natriuretic Peptide (<100) pg/mL COVID-19 ([facility]) Negative (Negative) COVID-19 Clin Com See Note 10/24/22 10/24/22 10/24/22 Range/Units 04:03 04:04 04:04 WBC 8.3 (4.8-10.8) X10*3/uL RBC 3.72 L (4.60-5.80) X10*6/uL Hgb 12.8 L (14.0-18.0) g/dl Hct 37.2 L (42.0-52.0) % MCV 100.0 H (80.0-98.0) fL MCH 34.4 H (27.0-33.0) pg MCHC 34.4 (31.0-36.0) g/dl RDW 12.2 (11.0-16.0) % Plt Count 265 (160-400) X10*3/uL MPV 10.4 (9.4-12.4) fL Immature Gran % (Auto) 0.4 (0.0-0.4) % Neut % (Auto) 57.9 (45-73) % Lymph % (Auto) 24.1 (20-40) % [place] % (Auto) 9.0 (2-11) % Eos % (Auto) 7.9 H (0-4) % Baso % (Auto) 0.7 (0-2) % Lymph # (Auto) 2.0 (1.2-4.9) X10*3/uL [place] # (Auto) 0.8 (0.1-1.2) X10*3/uL Eos # (Auto) 0.7 H (0.0-0.4) X10*3/uL Baso # (Auto) 0.1 (0.0-0.2) X10*3/uL Abs Immat Gran (auto) 0.03 (0.00-0.03) X10*3/uL Absolute Neuts (auto) 4.8 (2.0-8.3) x10*3/uL Absolute Nucleated RBC 0.000 (0.0-0.012) X10*3/uL Nucleated RBC % (auto) 0.0 (0.0-0.2) /100WBC VBG pH (7.32-7.43) VBG pCO2 mmHg VBG pO2 mmHg VBG HCO3 (22-26) mmol/L VBG O2 Saturation % VBG Base Excess mmol/L Sodium 141 (135-145) mmol/L Potassium 3.7 (3.3-5.1) mmol/L Chloride 108 (96-108) mmol/L Carbon Dioxide 22 (22-29) mmol/L Anion Gap 15 (12-20) BUN 15 (9-16) mg/dL Creatinine 0.95 (0.5-1.4) mg/dL Estim Creat Clear Calc 73.3 Estimated GFR > 60 Random Glucose 121 H (60-115) mg/dL Lactic Acid (0.5-2.0) mmol/L Calcium 9.9 D (8.4-10.2) mg/dL Troponin I High Sens (<3.5-35.0) ng/L B-Natriuretic Peptide 13 (<100) pg/mL COVID-19 ([facility]) (Negative) COVID-19 Clin Com 10/24/22 Range/Units 04:09 WBC (4.8-10.8) X10*3/uL RBC (4.60-5.80) X10*6/uL Hgb (14.0-18.0) g/dl Hct (42.0-52.0) % MCV (80.0-98.0) fL MCH (27.0-33.0) pg MCHC (31.0-36.0) g/dl RDW (11.0-16.0) % Plt Count (160-400) X10*3/uL MPV (9.4-12.4) fL Immature Gran % (Auto) (0.0-0.4) % Neut % (Auto) (45-73) % Lymph % (Auto) (20-40) % [place] % (Auto) (2-11) % Eos % (Auto) (0-4) % Baso % (Auto) (0-2) % Lymph # (Auto) (1.2-4.9) X10*3/uL [place] # (Auto) (0.1-1.2) X10*3/uL Eos # (Auto) (0.0-0.4) X10*3/uL Baso # (Auto) (0.0-0.2) X10*3/uL Abs Immat Gran (auto) (0.00-0.03) X10*3/uL Absolute Neuts (auto) (2.0-8.3) x10*3/uL Absolute Nucleated RBC (0.0-0.012) X10*3/uL Nucleated RBC % (auto) (0.0-0.2) /100WBC VBG pH 7.42 (7.32-7.43) VBG pCO2 44 mmHg VBG pO2 82 mmHg VBG HCO3 28 H (22-26) mmol/L VBG O2 Saturation 98.0 % VBG Base Excess 3.8 mmol/L Sodium (135-145) mmol/L Potassium (3.3-5.1) mmol/L Chloride (96-108) mmol/L Carbon Dioxide (22-29) mmol/L Anion Gap (12-20) BUN (9-16) mg/dL Creatinine (0.5-1.4) mg/dL Estim Creat Clear Calc Estimated GFR Random Glucose (60-115) mg/dL Lactic Acid (0.5-2.0) mmol/L Calcium (8.4-10.2) mg/dL Troponin I High Sens (<3.5-35.0) ng/L B-Natriuretic Peptide (<100) pg/mL COVID-19 ([facility]) (Negative) COVID-19 Clin Com Independent Interpretation I performed an independent interpretation of an: Plain X-Ray Radiology Impression Discussion of test interpretation with radiology: I have reviewed the radiologist's reading. Radiologist Impression: The lungs are hyperinflated and appear clear without focal consolidation. No evidence of pneumothorax, pleural effusion, or pulmonary edema. Cardiac size is within normal limits. Calcification is present at the aortic arch. No acute osseous findings are seen. XR/XR chest 1V IMPRESSION: No acute cardiopulmonary findings. Hyperinflated lungs suggesting COPD. Chronic Conditions Patient?s care impacted by: Other (COPD) Critical Care Time Critical Care Time Critical Care Time: Yes Total Critical Care Time: 60 Attestation: I have personally provided critical care time. Time includes review of lab data, radiology results, discussion with consultants, and monitoring for potential decompensation. Intervention performed as documented. Discharge Plan Discharge Clinical Impression: Asthma with exacerbation Patient Disposition: Home, Self-Care Instructions: Asthma (ED) Additional Instructions: Please follow-up with your primary care physician tomorrow. If you have any worsening or new symptoms, please return to the emergency room or call 911 Prescriptions: New prednisone 50 mg tablet 50 mg PO DAILY Qty: 4 0RF No Action multivitamin Tablet 1 tab PO DAILY losartan 50 mg tablet 1 tab PO DAILY atorvastatin 10 mg tablet 1 tab PO DAILY omeprazole 20 mg Capsule,Delayed Release(Dr/Ec) 20 mg PO DAILY@0630 doxazosin 2 mg tablet 1 tab PO DAILY albuterol sulfate [Proventil HFA] 90 mcg/actuation HFA aerosol inhaler 2 puff inhalation QID PRN (Reason: shortness of breath or wheezing) Qty: 8.5 2RF (DME) Aerochamber MV Spacer See Rx Instructions .Route Qty: 10 0RF Rx Instructions: As directed amlodipine 2.5 mg tablet 2.5 mg PO DAILY ipratropium-albuterol 0.5 mg-3 mg(2.5 mg base)/3 mL Solution For Nebulization 3 ml inhalation Q4H PRN (Reason: Wheezing) Qty: 300 0RF prednisone 10 mg tablet See Taper PO DIRECTED Qty: 30 0RF Taper: Prednisone 40 mg daily for 3 Days and 0 Hour 30 mg daily for 3 Days and 0 Hour 20 mg daily for 3 Days and 0 Hour 10 mg daily for 3 Days and 0 Hour Rx Instructions: see taper instructions
[2022-10-24 04:12] LABS: MANUAL DIFF FLAG NO
[2022-10-24 04:13] LABS: Basophils Absolute Auto 0.1 X10*3/uL (0.0-0.2); Basophils Percent Auto 0.7 % (0-2); Eosinophils Absolute Auto 0.7 X10*3/uL (0.0-0.4); Eosinophils Percent Auto 7.9 % (0-4); Hematocrit 37.2 % (42.0-52.0); Hemoglobin 12.8 g/dl (14.0-18.0); Imm Gran Abs Auto 0.03 X10*3/uL (0.00-0.03); Imm Gran Pct Auto 0.4 % (0.0-0.4); Lymphocytes Percent Auto 24.1 % (20-40); Mean Corpuscular HGB Conc 34.4 g/dl (31.0-36.0); Mean Corpuscular Hemoglobin 34.4 pg (27.0-33.0); Mean Platelet Volume 10.4 fL (9.4-12.4); Monocytes Absolute Auto 0.8 X10*3/uL (0.1-1.2); Neutrophils Absolute Auto 4.8 x10*3/uL (2.0-8.3); Neutrophils Percent Auto 57.9 % (45-73); Platelet Count 265 X10*3/uL (160-400); Red Blood Count 3.72 X10*6/uL (4.60-5.80); Red Cell Distribution Width 12.2 % (11.0-16.0); White Blood Count 8.3 X10*3/uL (4.8-10.8)
[2022-10-24 04:17] LABS: Venous Blood Gas Refer to POC result
[2022-10-24 04:18] LABS: VBG Base Excess 3.8 mmol/L; VBG HCO3 28 mmol/L (22-26); VBG pCO2 44 mmHg; VBG pH 7.42 (7.32-7.43); VBG pO2 82 mmHg
[2022-10-24] MEDS: Magnesium Sulfate/H2O 2 GM/50 ML PIGGYBACK IV (04:24)
[2022-10-24] MEDS: methylPREDNISolone Sod Succ 125 MG/2 ML VIAL IVPUSH (04:24)
[2022-10-24 04:25] VITALS: BP 115/73; PULSE 99; RESP 17; O2SAT 93
[2022-10-24 04:27] LABS: Lactic Acid 0.6 mmol/L (0.5-2.0)
--- NOTE | 2022-10-24 04:30 | PC.NURSE ---
late entry-pt calm and cooperative. iv placed upon pt arrival. pt medicated according to jun. pt reports feeling much better after medication administration. RT on standby
[2022-10-24 04:31] LABS: Anion Gap 15 (12-20); Blood Urea Nitrogen 15 mg/dL (9-16); Calcium 9.9 mg/dL (8.4-10.2); Carbon Dioxide 22 mmol/L (22-29); Chloride 108 mmol/L (96-108); Creatinine Clr Calc Pharmacy 73.3; Estimated Glomerular Filt Rate > 60; Glucose Random 121 mg/dL (60-115); Potassium 3.7 mmol/L (3.3-5.1); Sodium 141 mmol/L (135-145)
[2022-10-24 04:36] LABS: B Type Natriuretic Peptide 13 pg/mL (<100); COVID-19 Test Negative (Negative); IDNOW Serial# 6674DD1D; Troponin-I High Sensitivity 2.8 ng/L (<3.5-35.0)
[2022-10-24 05:07] VITALS: BP 105/66; PULSE 87; RESP 14; TEMP 36.8; O2SAT 94
--- NOTE | 2022-10-24 05:08 | MHC.EDTECH ---
Walked patient around the main ED per Doctor. Rm Air before walking 94%. When rounding the ED patient had no complaint of Lightheaded, dizziness, or SOB. O2 dropped to 90% and he had no complaints. Stated I feel good . Brought him back to his rm. Still no Complaints. RN, aware
[2022-10-24 06:08] VITALS: BP 136/80; PULSE 86; RESP 20; TEMP 36.4; O2SAT 93
--- NOTE | 2022-10-24 06:15 | PC.NURSE ---
iv removed at time of discharge. pt calm and cooperative. pt reports feeling much better . vss. pt awaiting for ride home. pt provided with discharge packet. pt verbalized understanding of discharge plan. pt discharged to waiting room
== END 2022-10-24 06:17 | disposition home or self-care (01) ==
PROVIDERS: Emergency Provider Emergency Medicine; PCP Internal Medicine
DX: J45.901 Unspecified asthma with (acute) exacerbation (principal); R06.02 Shortness of breath; Z79.899 Other long term (current) drug therapy; Z87.891 Personal history of nicotine dependence; Z20.822 Contact with and (suspected) exposure to COVID-19
CPT/HCPCS: 36415; 71045; 80048; 82803; 83605; 83880; 84484; 85025; 87040; 87635; 93005; 96374; 96375; 99284; 99285; J2930; J3475

== ENCOUNTER 2022-11-09 03:26 | Inpatient (IN) | payer MEDICARE, SELFPAY ==
[2022-11-09] VITALS (19 sets, daily range): BP systolic 128–186; BP diastolic 60–99; PULSE 100–122; RESP 18–28; TEMP 36.3–37.1; O2SAT 82–97; BMI 25.4
--- NOTE | ~2022-11-09 | XR_ITS ---
EXAMINATION: XR CHEST CLINICAL INFORMATION: Shortness of breath, COPD COMPARISON: 10/24/2022 TECHNIQUE: Frontal view of the chest was obtained. FINDINGS: The lungs are hyperinflated in keeping with underlying COPD. No focal consolidation is seen. No evidence of pneumothorax, pleural effusion, or pulmonary edema. The cardiomediastinal contour is unremarkable. No acute osseous findings are seen. XR/XR chest 1V IMPRESSION: Hyperinflated lungs in keeping with COPD. No acute findings identified.
--- NOTE | 2022-11-09 03:34 | ECG_ITS ---
Test Reason : DYSPNEA Blood Pressure : / mmHG Vent. Rate : 114 BPM Atrial Rate : 114 BPM P-R Int : 158 ms QRS Dur : 098 ms QT Int : 342 ms P-R-T Axes : 082 084 056 degrees QTc Int : 471 ms Sinus tachycardia Right atrial enlargement Borderline ECG When compared with ECG of 24-OCT-2022 04:10, No significant change was found Referred By: Stephania Saez Electronically Signed By:Kvng Sanchez
[2022-11-09] MEDS: Albuterol Sulfate (0.083%) 2.5 MG/3 ML VIAL.NEB 10 MG INHALE ×2 (03:40→05:05)
--- NOTE | 2022-11-09 03:42 | ED.SOB ---
HPI - SOB/Dyspnea General Chief Complaint: Dyspnea Stated Complaint: Exacerbation COPD Time Seen by Provider: 11/09/22 03:33 Source: patient Mode of arrival: EMS Limitations: no limitations History of Present Illness HPI Narrative: Patient comes to the emergency room complaining of severe shortness of breath. Patient states that all day today he has been having shortness of breath. Patient states that he has and been wheezing but he feels very tired, denies chest pain. Patient has been using multiple nebulization treatments at home without any improvement. Today, patient went to sleep and when he woke up, shortness of breath was much worse and decided to call EMS. EMS gave him a nebulization treatment, slightly feeling better but still feeling significant chest tightness. Related Data Home Medications Medication Instructions Recorded Confirmed atorvastatin 10 mg tablet 1 tab PO DAILY 01/31/21 09/22/22 doxazosin 2 mg tablet 1 tab PO DAILY 01/31/21 09/22/22 losartan 50 mg tablet 1 tab PO DAILY 01/31/21 09/22/22 multivitamin 1 tab PO DAILY 01/31/21 09/22/22 omeprazole 20 mg capsule,delayed 20 mg PO DAILY@0630 01/31/21 09/22/22 release amlodipine 2.5 mg tablet 2.5 mg PO DAILY 08/19/22 09/22/22 Previous Rx's Medication Instructions Recorded albuterol sulfate 90 mcg/actuation 2 puff inhalation QID PRN 12/01/21 aerosol inhaler (Proventil HFA) shortness of breath or wheezing #8.5 grams inhalational spacing device #10 ea 12/01/21 (Aerochamber MV spacer) ipratropium 0.5 mg-albuterol 3 mg 3 ml inhalation Q4H PRN Wheezing 09/24/22 (2.5 mg base)/3 mL nebulization #300 mL soln prednisone 10 mg tablet See Taper PO DIRECTED #30 tabs 09/24/22 prednisone 50 mg tablet 50 mg PO DAILY #4 tabs 10/24/22 Allergies Allergy/AdvReac Type Severity Reaction Status Date / Time No Known Allergies Allergy Verified 09/22/22 03:00 Review of Systems Review of Systems: Constitutional : No Weight loss, No Fever, No Chills, No Night Sweats, No Fatigue, No Malaise ENT/Mouth : No Hearing loss, No Ear Pain, No Nasal Congestion, No Sinus Pain, No Hoarseness, No sore throat, No Rhinorrhea, No Swallowing Difficulty Eyes: No Eye Pain, No Swelling, No Redness, No Foreign Body, No Discharge, No Vision Changes Cardiovascular : No Chest Pain, No SOB, No Dyspnea on Exertion, No Orthopnea, No Edema, No Palpitations Respiratory : No Cough, No Sputum, complaining of minimal wheezing and significant chest tightness Gastrointestinal : No Nausea, No Vomiting, No Diarrhea, No Constipation, No abdominal Pain, No Hematochezia, No Melena Genitourinary : no irregular bleeding, No Dysuria, No Urinary Frequency, No Hematuria, No Urinary Incontinence, No Urgency, No Flank Pain, No Urinary Flow Changes, No Hesitancy Musculoskeletal : No joint pain, No Myalgias, No Joint Swelling Skin : No Skin Lesions, No rash Neuro : No Weakness, No Numbness, No Paresthesias, No Loss of Consciousness, No Dizziness, No Headache Psych : No Anxiety/Panic, No Depression, No SI/HI/AH/VH, No Social Issues, Heme/Lymph: No Bruising, No Bleeding,No Lymphadenopathy Endocrine : No Polyuria, No Polydipsia, No Temperature Intolerance PMFSH Past Medical History Medical History Asthma exacerbation Chronic lung disease COPD exacerbation GERD (gastroesophageal reflux disease) HLD (hyperlipidemia) Hypertension Hypertension Surgical History History of appendectomy Social History Social History Household Members: None Household Members Other:: daughter lives next door Housing: House Do you presently have visiting nurse or other home services: No Alcohol intake: current Alcohol intake frequency: a few times a week Alcohol type: beer Patient Tobacco Use Status: Former Tobacco user Quit Date: 12/03/21 Tobacco use type: Cigarette Years Smoked: 40 e-Cigarette/Vaping Use: Never Used Second Hand Smoke Exposure: No Advance Directives: Yes Advance Directives on File: Yes Advance Directives Date on File: 02/26/22 service: No Current occupational status: employed Physical Exam Vital Signs: Vital Signs: Last Vital Signs Pulse 112 H 11/09/22 05:07 Resp 20 11/09/22 05:07 BP 156/89 H 07/17/23 04:39 Pulse Ox 92 11/09/22 04:39 O2 Del Method Nasal Cannula 11/09/22 04:39 O2 Flow Rate 5 11/09/22 04:39 BMI result Body Mass Index 25.4 Const: Other: Appearance: Alert. Oriented X3. No acute distress. Eyes: Pupils equal, round and reactive to light. ENT: Pharynx normal. Neck: Normal inspection. Neck supple. No lymph nodes noted. No crepitus CVS: Normal heart rate and rhythm. Pulses normal. Normal S1 and S2 Respiratory: In moderate respiratory distress, very minimal wheezing but poor air Abdomen: Soft and nontender. No rigidity. No distention. Skin: Skin warm and dry. Normal skin color. Normal skin turgor. Extremities: No lower extremity edema. No Lacerations. No Rash Neuro: Oriented X 3. No motor deficit. No sensory deficit. Moving all extremities. No slurred speech. CN 2 through 12 grossly intact Psych: calm, cooperative, normal affect Course Course Course Narrative: -patient receiving IV Solu-Medrol, magnesium, our long nebulization treatments. -all of patient's labs and imaging pending. Medications Administered Discontinued Medications Generic Name Dose Route Start Last Admin Trade Name Freq PRN Reason Stop Dose Admin Albuterol Sulfate 10 mg 11/09/22 03:33 11/09/22 03:40 Albuterol Sulfate (0.083%) 2.5 Mg/3 Ml Vial.Neb INHALE 11/09/22 03:34 10 mg ONCE ONE Administration Albuterol Sulfate 10 mg 11/09/22 04:42 11/09/22 05:05 Albuterol Sulfate (0.083%) 2.5 Mg/3 Ml Vial.Neb INHALE 11/09/22 04:43 10 mg ONCE ONE Administration Albuterol/Ipratropium 3 ml 11/09/22 04:42 11/09/22 05:05 Albuterol/Iprat 2.5/0.5mg 3 Ml Ampul.Neb INHALE 11/09/22 04:43 3 ml ONCE ONE Administration Magnesium Sulfate 2 gm in 50 mls @ 25 mls/hr 11/09/22 03:36 11/09/22 05:48 Magnesium Sulfate/H2o IV 11/09/22 05:35 Infused ONCE ONE Infusion Methylprednisolone Sodium Succinate 125 mg 11/09/22 03:36 11/09/22 03:45 Methylprednisolone Sod Succ 125 Mg/2 Ml Vial IVPUSH 11/09/22 03:37 125 mg ONCE ONE Administration Medical Decision Making Medical Decision Making [facility] Narrative: -my interpretation of chest x-ray: No infiltrates -patient responded well with 2 hour long nebulization treatments, Solu-Medrol, magnesium -patient states that he feels much better -however, when patient was ambulating around the emergency room, patient has stated that he was feeling much better. However, patient's oxygen saturation dropped to 82%. Patient was taken back to his room, it took several minutes with oxygen to increase his O2 level -patient has a mild white blood cell count elevation, could be secondary to steroids. -lactic acid normal, blood pressure stable, sepsis is not suspected. -given patient's comorbidities, patient will be treated empirically with antibiotics and IV fluids. Again, sepsis not suspected Differential Diagnosis Differential Diagnoses: The differential diagnosis associated with the presentation includes (Asthma, exacerbation of chronic lung disease, pneumonia) Admission/Observation Consideration of admission/observation: Escalation of care including admission/observation considered Consult Healthcare Provider Management of the patient was discussed with: Hospitalist Lab Data [facility] Lab Attestation statement: I reviewed the patient's lab results. 11/09/22 03:58 11/09/22 03:58 Labs: Lab Results 11/09/22 11/09/22 11/09/22 Range/Units 03:58 03:58 03:58 WBC 12.2 H (4.8-10.8) X10*3/uL RBC 3.87 L (4.60-5.80) X10*6/uL Hgb 13.1 L (14.0-18.0) g/dl Hct 38.6 L (42.0-52.0) % MCV 99.7 H (80.0-98.0) fL MCH 33.9 H (27.0-33.0) pg MCHC 33.9 (31.0-36.0) g/dl RDW 12.3 (11.0-16.0) % Plt Count 177 D (160-400) X10*3/uL MPV 10.7 (9.4-12.4) fL Immature Gran % (Auto) 0.7 H (0.0-0.4) % Neut % (Auto) 65.6 (45-73) % Lymph % (Auto) 19.1 L (20-40) % [place] % (Auto) 7.5 (2-11) % Eos % (Auto) 6.7 H (0-4) % Baso % (Auto) 0.4 (0-2) % Lymph # (Auto) 2.3 (1.2-4.9) X10*3/uL [place] # (Auto) 0.9 (0.1-1.2) X10*3/uL Eos # (Auto) 0.8 H (0.0-0.4) X10*3/uL Baso # (Auto) 0.1 (0.0-0.2) X10*3/uL Abs Immat Gran (auto) 0.09 H (0.00-0.03) X10*3/uL Absolute Neuts (auto) 8.0 (2.0-8.3) x10*3/uL Absolute Nucleated RBC 0.000 (0.0-0.012) X10*3/uL Nucleated RBC % (auto) 0.0 (0.0-0.2) /100WBC PT 10.1 (10.0-13.1) SEC INR 0.9 (0.9-1.1) VBG pH (7.32-7.43) VBG pCO2 mmHg VBG pO2 mmHg VBG HCO3 (22-26) mmol/L VBG O2 Saturation % VBG Base Excess mmol/L Sodium 142 (135-145) mmol/L Potassium 3.9 (3.3-5.1) mmol/L Chloride 109 H (96-108) mmol/L Carbon Dioxide 24 (22-29) mmol/L Anion Gap 13 (12-20) BUN 13 (9-16) mg/dL Creatinine 0.99 (0.5-1.4) mg/dL Estim Creat Clear Calc 70.4 Estimated GFR > 60 Random Glucose 133 H (60-115) mg/dL Lactic Acid (0.5-2.0) mmol/L Calcium 9.3 D (8.4-10.2) mg/dL Total Bilirubin 0.6 (0.0-1.0) mg/dL Direct Bilirubin 0.2 (0.0-0.5) mg/dL AST 19 (5-37) U/L ALT 22 (0-40) U/L Alkaline Phosphatase 54 (39-117) U/L Troponin I High Sens (<3.5-35.0) ng/L B-Natriuretic Peptide (<100) pg/mL Total Protein 6.8 (6.5-8.0) g/dL Albumin 4.2 (3.5-5.0) g/dL 11/09/22 11/09/22 11/09/22 Range/Units 03:58 03:58 03:58 WBC (4.8-10.8) X10*3/uL RBC (4.60-5.80) X10*6/uL Hgb (14.0-18.0) g/dl Hct (42.0-52.0) % MCV (80.0-98.0) fL MCH (27.0-33.0) pg MCHC (31.0-36.0) g/dl RDW (11.0-16.0) % Plt Count (160-400) X10*3/uL MPV (9.4-12.4) fL Immature Gran % (Auto) (0.0-0.4) % Neut % (Auto) (45-73) % Lymph % (Auto) (20-40) % [place] % (Auto) (2-11) % Eos % (Auto) (0-4) % Baso % (Auto) (0-2) % Lymph # (Auto) (1.2-4.9) X10*3/uL [place] # (Auto) (0.1-1.2) X10*3/uL Eos # (Auto) (0.0-0.4) X10*3/uL Baso # (Auto) (0.0-0.2) X10*3/uL Abs Immat Gran (auto) (0.00-0.03) X10*3/uL Absolute Neuts (auto) (2.0-8.3) x10*3/uL Absolute Nucleated RBC (0.0-0.012) X10*3/uL Nucleated RBC % (auto) (0.0-0.2) /100WBC PT (10.0-13.1) SEC INR (0.9-1.1) VBG pH (7.32-7.43) VBG pCO2 mmHg VBG pO2 mmHg VBG HCO3 (22-26) mmol/L VBG O2 Saturation % VBG Base Excess mmol/L Sodium (135-145) mmol/L Potassium (3.3-5.1) mmol/L Chloride (96-108) mmol/L Carbon Dioxide (22-29) mmol/L Anion Gap (12-20) BUN (9-16) mg/dL Creatinine (0.5-1.4) mg/dL Estim Creat Clear Calc Estimated GFR Random Glucose (60-115) mg/dL Lactic Acid 1.1 (0.5-2.0) mmol/L Calcium (8.4-10.2) mg/dL Total Bilirubin (0.0-1.0) mg/dL Direct Bilirubin (0.0-0.5) mg/dL AST (5-37) U/L ALT (0-40) U/L Alkaline Phosphatase (39-117) U/L Troponin I High Sens 2.9 (<3.5-35.0) ng/L B-Natriuretic Peptide 44 (<100) pg/mL Total Protein (6.5-8.0) g/dL Albumin (3.5-5.0) g/dL 11/09/22 Range/Units 03:59 WBC (4.8-10.8) X10*3/uL RBC (4.60-5.80) X10*6/uL Hgb (14.0-18.0) g/dl Hct (42.0-52.0) % MCV (80.0-98.0) fL MCH (27.0-33.0) pg MCHC (31.0-36.0) g/dl RDW (11.0-16.0) % Plt Count (160-400) X10*3/uL MPV (9.4-12.4) fL Immature Gran % (Auto) (0.0-0.4) % Neut % (Auto) (45-73) % Lymph % (Auto) (20-40) % [place] % (Auto) (2-11) % Eos % (Auto) (0-4) % Baso % (Auto) (0-2) % Lymph # (Auto) (1.2-4.9) X10*3/uL [place] # (Auto) (0.1-1.2) X10*3/uL Eos # (Auto) (0.0-0.4) X10*3/uL Baso # (Auto) (0.0-0.2) X10*3/uL Abs Immat Gran (auto) (0.00-0.03) X10*3/uL Absolute Neuts (auto) (2.0-8.3) x10*3/uL Absolute Nucleated RBC (0.0-0.012) X10*3/uL Nucleated RBC % (auto) (0.0-0.2) /100WBC PT (10.0-13.1) SEC INR (0.9-1.1) VBG pH 7.36 (7.32-7.43) VBG pCO2 51 mmHg VBG pO2 92 mmHg VBG HCO3 29 H (22-26) mmol/L VBG O2 Saturation 97.0 % VBG Base Excess 2.8 mmol/L Sodium (135-145) mmol/L Potassium (3.3-5.1) mmol/L Chloride (96-108) mmol/L Carbon Dioxide (22-29) mmol/L Anion Gap (12-20) BUN (9-16) mg/dL Creatinine (0.5-1.4) mg/dL Estim Creat Clear Calc Estimated GFR Random Glucose (60-115) mg/dL Lactic Acid (0.5-2.0) mmol/L Calcium (8.4-10.2) mg/dL Total Bilirubin (0.0-1.0) mg/dL Direct Bilirubin (0.0-0.5) mg/dL AST (5-37) U/L ALT (0-40) U/L Alkaline Phosphatase (39-117) U/L Troponin I High Sens (<3.5-35.0) ng/L B-Natriuretic Peptide (<100) pg/mL Total Protein (6.5-8.0) g/dL Albumin (3.5-5.0) g/dL Independent Interpretation I performed an independent interpretation of an: Plain X-Ray Radiology Impression Discussion of test interpretation with radiology: I have reviewed the radiologist's reading. Radiologist Impression: FINDINGS: The lungs are hyperinflated in keeping with underlying COPD. No focal consolidation is seen. No evidence of pneumothorax, pleural effusion, or pulmonary edema. The cardiomediastinal contour is unremarkable. No acute osseous findings are seen. XR/XR chest 1V IMPRESSION: Hyperinflated lungs in keeping with COPD. No acute findings identified. Critical Care Time Critical Care Time Critical Care Time: Yes Total Critical Care Time: 75 Attestation: I have personally provided critical care time. Time includes review of lab data, radiology results, discussion with consultants, and monitoring for potential decompensation. Intervention performed as documented. Discharge Plan Discharge Clinical Impression: Asthma with exacerbation Patient Disposition: Admitted As Inpatient Prescriptions: No Action multivitamin Tablet 1 tab PO DAILY losartan 50 mg tablet 1 tab PO DAILY atorvastatin 10 mg tablet 1 tab PO DAILY omeprazole 20 mg Capsule,Delayed Release(Dr/Ec) 20 mg PO DAILY@0630 doxazosin 2 mg tablet 1 tab PO DAILY albuterol sulfate [Proventil HFA] 90 mcg/actuation HFA aerosol inhaler 2 puff inhalation QID PRN (Reason: shortness of breath or wheezing) Qty: 8.5 2RF (DME) Aerochamber MV Spacer See Rx Instructions .Route Qty: 10 0RF Rx Instructions: As directed amlodipine 2.5 mg tablet 2.5 mg PO DAILY ipratropium-albuterol 0.5 mg-3 mg(2.5 mg base)/3 mL Solution For Nebulization 3 ml inhalation Q4H PRN (Reason: Wheezing) Qty: 300 0RF prednisone 10 mg tablet See Taper PO DIRECTED Qty: 30 0RF Taper: Prednisone 40 mg daily for 3 Days and 0 Hour 30 mg daily for 3 Days and 0 Hour 20 mg daily for 3 Days and 0 Hour 10 mg daily for 3 Days and 0 Hour Rx Instructions: see taper instructions prednisone 50 mg tablet 50 mg PO DAILY Qty: 4 0RF
[2022-11-09] MEDS: methylPREDNISolone Sod Succ 125 MG/2 ML VIAL IVPUSH (03:45)
[2022-11-09] MEDS: Magnesium Sulfate/H2O 2 GM/50 ML PIGGYBACK IV (03:45)
[2022-11-09 04:05] LABS: MANUAL DIFF FLAG NO
[2022-11-09 04:06] LABS: Basophils Absolute Auto 0.1 X10*3/uL (0.0-0.2); Basophils Percent Auto 0.4 % (0-2); Eosinophils Absolute Auto 0.8 X10*3/uL (0.0-0.4); Eosinophils Percent Auto 6.7 % (0-4); Hematocrit 38.6 % (42.0-52.0); Hemoglobin 13.1 g/dl (14.0-18.0); Imm Gran Abs Auto 0.09 X10*3/uL (0.00-0.03); Imm Gran Pct Auto 0.7 % (0.0-0.4); Lymphocytes Absolute Auto 2.3 X10*3/uL (1.2-4.9); Lymphocytes Percent Auto 19.1 % (20-40); Mean Corpuscular HGB Conc 33.9 g/dl (31.0-36.0); Mean Corpuscular Hemoglobin 33.9 pg (27.0-33.0); Mean Corpuscular Volume 99.7 fL (80.0-98.0); Mean Platelet Volume 10.7 fL (9.4-12.4); Monocytes Absolute Auto 0.9 X10*3/uL (0.1-1.2); Monocytes Percent Auto 7.5 % (2-11); Neutrophils Percent Auto 65.6 % (45-73); Platelet Count 177 X10*3/uL (160-400); Red Blood Count 3.87 X10*6/uL (4.60-5.80); Red Cell Distribution Width 12.3 % (11.0-16.0); White Blood Count 12.2 X10*3/uL (4.8-10.8)
[2022-11-09 04:07] LABS: Venous Blood Gas Refer to POC result
[2022-11-09 04:09] LABS: VBG Base Excess 2.8 mmol/L; VBG HCO3 29 mmol/L (22-26); VBG pCO2 51 mmHg; VBG pH 7.36 (7.32-7.43); VBG pO2 92 mmHg
[2022-11-09 04:15] LABS: Lactic Acid 1.1 mmol/L (0.5-2.0)
[2022-11-09 04:18] LABS: INTERNATIONAL NORM RATIO 0.9 (0.9-1.1); Prothrombin Time 10.1 SEC (10.0-13.1)
[2022-11-09 04:20] LABS: Alanine Aminotransferase 22 U/L (0-40); Albumin Level 4.2 g/dL (3.5-5.0); Alkaline Phosphatase 54 U/L (39-117); Anion Gap 13 (12-20); Aspartate Amino Transferase 19 U/L (5-37); Bilirubin Direct 0.2 mg/dL (0.0-0.5); Bilirubin Total 0.6 mg/dL (0.0-1.0); Blood Urea Nitrogen 13 mg/dL (9-16); Calcium 9.3 mg/dL (8.4-10.2); Carbon Dioxide 24 mmol/L (22-29); Chloride 109 mmol/L (96-108); Creatinine Clr Calc Pharmacy 70.4; Estimated Glomerular Filt Rate > 60; Glucose Random 133 mg/dL (60-115); Potassium 3.9 mmol/L (3.3-5.1); Sodium 142 mmol/L (135-145); Total Protein 6.8 g/dL (6.5-8.0)
[2022-11-09 04:25] LABS: Troponin-I High Sensitivity 2.9 ng/L (<3.5-35.0)
[2022-11-09 04:26] LABS: B Type Natriuretic Peptide 44 pg/mL (<100)
[2022-11-09] MEDS: Albuterol/Iprat 2.5/0.5MG 3 ML AMPUL.NEB INHALE ×4 (05:05→19:28)
--- NOTE | 2022-11-09 05:05 | PC.NURSE ---
condition improved: im breathing much better now RR 24-26. receiving additional breathing treatments. cont to reassess.
--- NOTE | 2022-11-09 06:01 | PC.NURSE ---
sitting up on stretcher, breathing easier, ski color pink/dry. cont to monitor.
[2022-11-09] MEDS: 0.9 % Sodium Chloride 1,000 ML 999 ML IVCONT (06:33)
[2022-11-09] MEDS: cefTRIAXone sodium 1 GM in 0.9 % Sodium Chloride 50 ML IV (06:33)
--- NOTE | 2022-11-09 08:46 | PHA.MEDREC ---
Pharmacy Consult ? Medication Reconciliation Pharmacy has completed the medication reconciliation. spoke with patient and confirmed his medications.
--- NOTE | 2022-11-09 09:45 | P.HPHOSP_ITS ---
History of Present Illness Date of Service: 11/09/22 Chief Complaint: shortness of breath The patient is an 67 year old with a PMH of 50+ pack years of smoking, presumed COPD, chronic respiratory failure with hyopxia on 1-2L PRN with exertion and HTN who presents to the ED with a 1 day history of progressive shortness of breath and wheezing with a cough. 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 He reports that since then he has had dyspnea both at rest and exertion. No changes to resipratory status with positional changes (no orthopnea, pnd). Denies LE edema. + cough with white sputum. No fevers or chills. No sick contacts. Reports complete tobacco cessation 1 month ago after this hospitailzation. In the ED, was noted to have hypoxia down to 85% on RA. Despite treatment with 2 one hour long nebulized bronchodilators, systemic steroids, IV antibiotics, he r emains hypoxia with supplemental oxygen requirements. Hence, he will be admitted for further care. Review of Systems Review of Systems: negative except HPI [facility] Medical History Asthma exacerbation Chronic lung disease COPD exacerbation GERD (gastroesophageal reflux disease) HLD (hyperlipidemia) Hypertension Hypertension Surgical History History of appendectomy Social History Household Members: None Household Members Other:: daughter lives next door Housing: House Do you presently have visiting nurse or other home services: No Alcohol intake: current Alcohol intake frequency: a few times a week Alcohol type: beer Patient Tobacco Use Status: Former Tobacco user Quit Date: 12/03/21 Tobacco use type: Cigarette Years Smoked: 40 e-Cigarette/Vaping Use: Never Used Second Hand Smoke Exposure: No Advance Directives: Yes Advance Directives on File: Yes Advance Directives Date on File: 02/26/22 service: No Current occupational status: employed Meds Allergies Allergy/AdvReac Type Severity Reaction Status Date / Time No Known Allergies Allergy Verified 09/22/22 03:00 Home Medications Medication Instructions Recorded Confirmed Last Taken Type atorvastatin 10 mg tablet 1 tab PO DAILY 01/31/21 11/09/22 12/29/21 History doxazosin 2 mg tablet 1 tab PO DAILY 01/31/21 11/09/22 12/29/21 History losartan 50 mg tablet 1 tab PO BID 01/31/21 11/09/22 12/29/21 History multivitamin 1 tab PO DAILY 01/31/21 11/09/22 12/29/21 History omeprazole 20 mg capsule,delayed 20 mg PO DAILY@0630 01/31/21 11/09/22 12/29/21 History release amlodipine 2.5 mg tablet 2.5 mg PO DAILY 08/19/22 11/09/22 Unknown History Physical Exam Vital Signs and Narrative: Vital Signs: Last Vital Signs Temp 97.8 F 11/09/22 07:31 Pulse 111 H 11/09/22 07:31 Resp 18 11/09/22 07:31 BP 148/74 H 11/09/22 07:31 Pulse Ox 97 11/09/22 07:31 O2 Del Method Oxymask 11/09/22 07:31 O2 Flow Rate 13 11/09/22 07:31 BMI result Body Mass Index 25.4 Const: Other: Constitutional - Awake and Alert, No apparent distress with supplemental oxygen and at rest, increase work of breathing with minial exertion Eyes - PERRLA, EOMI Cardiovascular - S1S2, RRR, No edema Respiratory - diffuse rhonchi and wheezing with increase WOB with minimal exertion Gastrointestinal - NT / ND; +BS; No rebound or guarding - No CVA tenderness Extremities - no calf tenderness bilaterally, no swelling Musculoskeletal - Normal inspection, normal ROM Skin - Warm/Dry Neurological - Alert & oriented x3, No focal deficit Psychological - Appropriate affect Results Labs 11/09/22 03:58 11/09/22 03:58 Labs: Laboratory Results - last 24 hr 11/09/22 11/09/22 11/09/22 03:58 03:58 03:58 MCV 99.7 H MCH 33.9 H MCHC 33.9 RDW 12.3 Plt Count 177 D MPV 10.7 Immature Gran % (Auto) 0.7 H Neut % (Auto) 65.6 Lymph % (Auto) 19.1 L [place] % (Auto) 7.5 Eos % (Auto) 6.7 H Baso % (Auto) 0.4 Lymph # (Auto) 2.3 [place] # (Auto) 0.9 Eos # (Auto) 0.8 H Baso # (Auto) 0.1 Abs Immat Gran (auto) 0.09 H Absolute Neuts (auto) 8.0 Absolute Nucleated RBC 0.000 Nucleated RBC % (auto) 0.0 PT 10.1 INR 0.9 VBG pH VBG pCO2 VBG pO2 VBG HCO3 VBG O2 Saturation VBG Base Excess Anion Gap 13 Estim Creat Clear Calc 70.4 Estimated GFR > 60 Random Glucose 133 H Lactic Acid Calcium 9.3 D Total Bilirubin 0.6 Direct Bilirubin 0.2 AST 19 ALT 22 Alkaline Phosphatase 54 Troponin I High Sens B-Natriuretic Peptide Total Protein 6.8 Albumin 4.2 11/09/22 11/09/22 11/09/22 03:58 03:58 03:58 MCV MCH MCHC RDW Plt Count MPV Immature Gran % (Auto) Neut % (Auto) Lymph % (Auto) [place] % (Auto) Eos % (Auto) Baso % (Auto) Lymph # (Auto) [place] # (Auto) Eos # (Auto) Baso # (Auto) Abs Immat Gran (auto) Absolute Neuts (auto) Absolute Nucleated RBC Nucleated RBC % (auto) PT INR VBG pH VBG pCO2 VBG pO2 VBG HCO3 VBG O2 Saturation VBG Base Excess Anion Gap Estim Creat Clear Calc Estimated GFR Random Glucose Lactic Acid 1.1 Calcium Total Bilirubin Direct Bilirubin AST ALT Alkaline Phosphatase Troponin I High Sens 2.9 B-Natriuretic Peptide 44 Total Protein Albumin 11/09/22 03:59 MCV MCH MCHC RDW Plt Count MPV Immature Gran % (Auto) Neut % (Auto) Lymph % (Auto) [place] % (Auto) Eos % (Auto) Baso % (Auto) Lymph # (Auto) [place] # (Auto) Eos # (Auto) Baso # (Auto) Abs Immat Gran (auto) Absolute Neuts (auto) Absolute Nucleated RBC Nucleated RBC % (auto) PT INR VBG pH 7.36 VBG pCO2 51 VBG pO2 92 VBG HCO3 29 H VBG O2 Saturation 97.0 VBG Base Excess 2.8 Anion Gap Estim Creat Clear Calc Estimated GFR Random Glucose Lactic Acid Calcium Total Bilirubin Direct Bilirubin AST ALT Alkaline Phosphatase Troponin I High Sens B-Natriuretic Peptide Total Protein Albumin Imaging Radiologist's Impressions: Impressions Chest X-Ray 11/09/22 03:40 IMPRESSION: Hyperinflated lungs in keeping with COPD. No acute findings identified. Assessment and Plan (1) Hypoxia: Status: Acute Plan 67 yo M with a 50+ pack year history of tobacco use and presumed COPD who presents with worsening ROBBINS and wheezing. Noted to be hypoxic on RA down to 85%. 1. Acute on chronic respiratory failure with hypoxia currently requiring 10+ L to keep saturation above 90% Cotninue O2 and wean as tolerated secondary to presumed COPD 2. Presumed COPD exacerbation No formal testing per patient, but given his tobacco history, suspect he has COPD Does not f/u with a property management bookkeeper, but does have outpaient referral If not improved, consider inpatient pulm consult 3. HTN continue baseilne meds DVT pptx - lovenox DNR/DNI -- per the patients wishes. HCP is his son. GIven patient's degree of hypoxia, I suspect he will likely need 48-72 hours of inpatient treatment. Therefore, he will be admitted as inpatient with the anticipation of at least 2 midnights in the hospital. Time Spent With Patient Time: Total time managing care of this patient today ____ minutes. Quality Stroke Does the patient have a stroke diagnosis?: No VTE Prior VTE?: No VTE Risk Level:: Medical - moderate - high VTE Device Contraindication: Treatment Not Indicated VTE Drug Contraindication: N/A - Med Ordered
[2022-11-09] MEDS: Enoxaparin Sodium 40 MG/0.4 ML SYRINGE SUBCUT (10:53)
[2022-11-09] MEDS: methylPREDNISolone Sod Succ 40 MG/ML VIAL IVPUSH ×2 (10:55→17:12)
[2022-11-09] MEDS: Losartan Potassium 50 MG TABLET PO ×2 (11:06→20:20)
[2022-11-09] MEDS: amLODIPine Besylate 2.5 MG TABLET PO (11:08)
--- NOTE | 2022-11-09 14:47 | PC.NURSE ---
Pt alert, denied any pain or disomcort, watching TV, pending bed assignment, call bentley with in reach.
[2022-11-09] MEDS: 0.9 % Sodium Chloride Flush 3 ML SYRINGE IVFLUSH ×2 (17:13→20:20)
--- NOTE | 2022-11-09 19:19 | PC.NURSE ---
Pt sats on room air 91-92% No distress noted at this time
[2022-11-09] MEDS: Albuterol Sulfate (0.042%) 1.25 MG/3 ML VIAL.NEB INHALE (23:54)
--- NOTE | 2022-11-10 01:11 | PC.NURSE ---
2350 pt c/o difficulty breathing and sob.02 at 6L via oxymask applied sats 95 %.respiratory called for prn updraft with good effect.
[2022-11-10] MEDS: methylPREDNISolone Sod Succ 40 MG/ML VIAL IVPUSH ×2 (01:54→09:41)
[2022-11-10 04:00] VITALS: BP 142/68; PULSE 100; RESP 19; TEMP 36.6; O2SAT 100
[2022-11-10] MEDS: Omeprazole 20 MG CAPSULE.DR PO (06:26)
[2022-11-10] MEDS: 0.9 % Sodium Chloride Flush 3 ML SYRINGE IVFLUSH (07:28)
[2022-11-10 07:46] VITALS: BP 157/75; PULSE 104; RESP 18; TEMP 36.4; O2SAT 92
[2022-11-10] MEDS: Albuterol/Iprat 2.5/0.5MG 3 ML AMPUL.NEB INHALE (07:51)
[2022-11-10] MEDS: Doxazosin Mesylate 2 MG TABLET PO (08:09)
[2022-11-10] MEDS: amLODIPine Besylate 2.5 MG TABLET PO (08:09)
[2022-11-10] MEDS: Losartan Potassium 50 MG TABLET PO (08:09)
[2022-11-10] MEDS: Atorvastatin Calcium 10 MG TABLET PO (08:09)
[2022-11-10 08:20] VITALS: PULSE 106; RESP 18; O2SAT 92
--- NOTE | 2022-11-10 08:50 | MHC.CM.PN ---
pt is independent is dcd today home no servceis has own transport home
--- NOTE | 2022-11-10 08:57 | PM.DS ---
DS: Providers Provider Date of Service: 11/10/22 Date of admission: 11/09/22 09:43 Primary care physician: Feliberto Britt MD DS: Diagnosis Discharge Diagnosis (1) Hypoxia: Status: Acute DS: Summary Hospital Course Hospital Course: history and physical as per admitting provider. The patient is an 67 year old with a PMH of 50+ pack years of smoking, presumed COPD, chronic respiratory failure with hyopxia on 1-2L PRN with exertion and HTN who presents to the ED with a 1 day history of progressive shortness of breath and wheezing with a cough. The patient reports that he was in his usual state of health until about 24 hours [employer]. He reports that since then he has had dyspnea both at rest and exertion. No changes to resipratory status with positional changes (no orthopnea, pnd). Denies LE edema. + cough with white sputum. No fevers or chills. No sick contacts. Reports complete tobacco cessation 1 month ago after this hospitailzation. In the ED, was noted to have hypoxia down to 85% on RA. Despite treatment with 2 one hour long nebulized bronchodilators, systemic steroids, IV antibiotics, he remains hypoxia with supplemental oxygen requirements. Hence, he will be admitted for further care. 67-year-old man treated for acute on chronic respiratory failure with hypoxia secondary to COPD exacerbation. He was treated with IV Solu-Medrol and scheduled DuoNebs with good results. Patient has very minimal expiratory wheezing at this point has no complaints of shortness breath and is remaining on room air. Patient will be home on prednisone taper for 8 days, he was given a new prescription for Spiriva and refill for his albuterol inhaler. At this point patient is a for discharge to home with no services. Hypertension. No change. Continue home medications Time Spent with Patient Time attestation: Total time managing care of this patient today ____ minutes. Discharge coordination time: Greater than 30 minutes Quality: Safe Use of Opioids Does Pt have an Active Cancer Diagnosis on the Problem List?: No Quality: Stroke Does the patient have a stroke diagnosis?: No Physical Exam Vital Signs: Vital Signs: Last Vital Signs Temp 97.6 F 11/10/22 07:46 Pulse 106 H 11/10/22 08:20 Resp 18 11/10/22 08:20 BP 192/88 H 07/18/23 07:46 Pulse Ox 92 11/10/22 07:46 O2 Del Method Room Air 11/10/22 07:46 O2 Flow Rate 15 11/09/22 11:09 BMI result Body Mass Index 25.4 Appearing in no acute distress head is normocephalic atraumatic eyes pupils are PERRLA sclera is anicteric mouth throat mucous membranes are intact and moist neck is supple no lymphadenopathy, no JVD noted lung sounds mild expiratory wheezing heart regular rate rhythm, clear S1, S2 positive bowel sounds, abdomen is soft, nontender neuro patient is alert x3, no focal deficits DS: Data Data Completed and Pending Completed studies during hospitalization [Text1]: Procedures Assistance with Respiratory Ventilation, Less than 24 Consecutive Hours, Continuous Positive Airway Pressure (09/22/22) Labs on day of discharge: Preliminary micro results at discharge 11/09/22 04:04 Blood Culture - Preliminary Blood - Venous No growth after 24 hours. 11/09/22 03:58 Blood Culture - Preliminary Blood - Venous No growth after 24 hours. Discharge Plan Discharge Anticipated Discharge Date/Time: 11/10/22 08:18 Patient Disposition: Home, Self-Care Discharge Diagnosis: COPD exacerbation Referrals: Feliberto Britt MD [Primary Care Provider] - 1 Week Discharge Medications: New prednisone 10 mg tablet See Taper PO DIRECTED Qty: 20 0RF Taper: Prednisone 40 mg daily for 2 Days and 0 Hour 30 mg daily for 2 Days and 0 Hour 20 mg daily for 2 Days and 0 Hour 10 mg daily for 2 Days and 0 Hour Rx Instructions: see taper instructions Spiriva with HandiHaler 18 mcg capsule, w/inhalation device 1 cap inhalation DAILY Qty: 30 0RF Rx Instructions: puncture 1 cap using device; one dose = 2 inhalations Continued multivitamin Tablet 1 tab PO DAILY losartan 50 mg tablet 1 tab PO BID atorvastatin 10 mg tablet 1 tab PO DAILY omeprazole 20 mg Capsule,Delayed Release(Dr/Ec) 20 mg PO DAILY@0630 doxazosin 2 mg tablet 1 tab PO DAILY (DME) Aerochamber MV Spacer See Rx Instructions .Route Qty: 10 0RF Rx Instructions: As directed amlodipine 2.5 mg tablet 2.5 mg PO DAILY ipratropium-albuterol 0.5 mg-3 mg(2.5 mg base)/3 mL Solution For Nebulization 3 ml inhalation Q4H PRN (Reason: Wheezing) Qty: 300 0RF albuterol sulfate [Proventil HFA] 90 mcg/actuation HFA aerosol inhaler 2 puff inhalation QID PRN (Reason: shortness of breath or wheezing) Qty: 8.5 2RF Discharge Orders: Discharge Order (Routine); Ordered 11/10/22 Ordered By: Roberta Sunshine Diet: Advance to usual diet Activity on Discharge: As tolerated Stand Alone Forms: Patient Portal Discharge page Care Plan Goals: complete resolution of symptoms Health Concerns: COPD exacerbation Plan of Treatment: Follow-up with primary care provider as needed You have been placed on a prednisone taper for 8 days please take medication as prescribed Assessment: see discharge summary
[2022-11-10] MEDS: Enoxaparin Sodium 40 MG/0.4 ML SYRINGE SUBCUT (09:41)
== END 2022-11-10 10:28 | disposition home or self-care (01) | DRG 190 ==
LOC: HO.ED 06:25 → HO.EDOVER 09:52 → HO.S3 15:46
PROVIDERS: Admitting Provider Family Medicine; Emergency Provider Emergency Medicine; PCP Internal Medicine; Visit Provider Nurse Practitioner Acute Care
DX: J44.1 Chronic obstructive pulmonary disease with (acute) exacerbation (principal); J96.21 Acute and chronic respiratory failure with hypoxia; Z66 Do not resuscitate; I10 Essential (primary) hypertension; E78.5 Hyperlipidemia, unspecified; Z87.891 Personal history of nicotine dependence; Z79.899 Other long term (current) drug therapy
CPT/HCPCS: 36415; 71045; 80048; 80053; 80076; 82803; 83605; 83880; 84484; 85025; 85610; 87040; 93005; 94640; 99285; J0456; J0696; J1650; J2920; J2930; J3475

== ENCOUNTER → 2022-11-09 03:34 | Outpatient (BNV) | payer MEDICARE, SELFPAY | PROVIDERS: Admitting Provider Family Medicine; Emergency Provider Emergency Medicine; PCP Internal Medicine; Visit Provider Internal Medicine Cardiovascular Disease | DX: R00.0 Tachycardia, unspecified (principal) | CPT/HCPCS: 93010 ==

== ENCOUNTER → 2022-11-09 09:43 | Outpatient (BNV) | payer MEDICARE, SELFPAY | PROVIDERS: Admitting Provider Family Medicine; Emergency Provider Emergency Medicine; PCP Internal Medicine; Visit Provider Family Medicine | DX: R09.02 Hypoxemia (principal) | CPT/HCPCS: 99223; 99239 ==

== ENCOUNTER 2022-11-30 02:59 | Inpatient (IN) | payer MEDICARE, SELFPAY ==
[2022-11-30] VITALS (14 sets, daily range): BP systolic 121–158; BP diastolic 65–82; PULSE 91–126; RESP 16–24; TEMP 36.5–37.1; O2SAT 93–99; BMI 25.1
--- NOTE | ~2022-11-30 | XR_ITS ---
EXAMINATION: XR CHEST CLINICAL INFORMATION: Shortness of breath COMPARISON: 11/09/2022 TECHNIQUE: Frontal view of the chest was obtained. FINDINGS: Normal symmetric lung volumes. No parenchymal consolidation. No pleural effusion. No pneumothorax. Cardiomediastinal silhouette and pulmonary vascularity are within normal limits. No acute osseous abnormalities. XR/XR chest 1V IMPRESSION: No acute findings.
--- NOTE | 2022-11-30 03:03 | ECG_ITS ---
Test Reason : SOB Blood Pressure : / mmHG Vent. Rate : 118 BPM Atrial Rate : 118 BPM P-R Int : 146 ms QRS Dur : 102 ms QT Int : 334 ms P-R-T Axes : 083 087 047 degrees QTc Int : 468 ms Sinus tachycardia Otherwise normal ECG When compared with ECG of 09-NOV-2022 03:31, No significant change was found Referred By: Jacinta Forrester Electronically Signed By:Kvng Sanchez
--- NOTE | 2022-11-30 03:04 | ED_ITS ---
HPI - SOB/Dyspnea General Chief Complaint: Dyspnea Stated Complaint: SOB Source: patient Mode of arrival: EMS History of Present Illness HPI Narrative: 67-year-old male is brought in by EMS for acute onset of shortness of breath at approximately noon today that he tried to mitigate with his own albuterol at home but became increasingly short of breath and had to call EMS. EMS states that they arrived and patient was noted to be in the low 80s for oxygenation and he does not wear oxygen at home and has recently stopped smoking approximately 3 weeks ago. EMS provided to DuoNebs and 125 mg of Solu-Medrol en route. Related Data Home Medications Medication Instructions Recorded Confirmed atorvastatin 10 mg tablet 1 tab PO DAILY 01/31/21 11/09/22 doxazosin 2 mg tablet 1 tab PO DAILY 01/31/21 11/09/22 losartan 50 mg tablet 1 tab PO BID 01/31/21 11/09/22 multivitamin 1 tab PO DAILY 01/31/21 11/09/22 omeprazole 20 mg capsule,delayed 20 mg PO DAILY@0630 01/31/21 11/09/22 release amlodipine 2.5 mg tablet 2.5 mg PO DAILY 08/19/22 11/09/22 Previous Rx's Medication Instructions Recorded inhalational spacing device #10 ea 12/01/21 (Aerochamber MV spacer) ipratropium 0.5 mg-albuterol 3 mg 3 ml inhalation Q4H PRN Wheezing 09/24/22 (2.5 mg base)/3 mL nebulization #300 mL soln albuterol sulfate 90 mcg/actuation 2 puff inhalation QID PRN 11/10/22 aerosol inhaler (Proventil HFA) shortness of breath or wheezing #8.5 grams prednisone 10 mg tablet See Taper PO DIRECTED #20 tabs 11/10/22 umeclidinium 62.5 mcg/actuation 1 inh inhalation BEDTIME #30 ea 11/10/22 blister powder for inhalation (Incruse Ellipta) Allergies Allergy/AdvReac Type Severity Reaction Status Date / Time No Known Allergies Allergy Verified 09/22/22 03:00 Review of Systems Review of Systems: Pertinent positives and negatives as stated in HPI PMFSH Past Medical History Source: nursing notes reviewed Medical History Asthma exacerbation Chronic lung disease COPD exacerbation GERD (gastroesophageal reflux disease) HLD (hyperlipidemia) Hypertension Hypertension Surgical History History of appendectomy Social History Social History Household Members: None Household Members Other:: daughter lives next door Housing: Apartment Do you presently have visiting nurse or other home services: No Alcohol intake: never Patient Tobacco Use Status: Former Tobacco user Quit Date: 2 months ago Tobacco use type: Cigarette Cigarette Packs Per Day: 1 Cigarettes Per Day: 20.0 Years Smoked: 50 Smoked in Last 30 Days: No e-Cigarette/Vaping Use: Never Used Second Hand Smoke Exposure: No Use of substances other than those prescribed or required for medical reasons: No Advance Directives: Yes Advance Directives on File: Yes Advance Directives Date on File: 02/26/22 service: No Current occupational status: employed Physical Exam Vital Signs: Vital Signs: Last Vital Signs Temp 98.0 F 11/30/22 04:00 Pulse 110 H 11/30/22 04:00 Resp 24 H 11/30/22 04:00 BP 139/66 11/30/22 04:00 Pulse Ox 93 11/30/22 04:00 O2 Del Method Nasal Cannula 11/30/22 04:00 O2 Flow Rate 3 11/30/22 04:00 BMI result Body Mass Index 25.1 VITAL SIGNS: Reviewed. GENERAL: Well developed, well nourished, in no acute distress. HEAD: Normocephalic/atraumatic EYES: PERRLA, EOMI EARS: Ext canals without abnormality NOSE: Nares patent bilateral OROPHARYNX: no oral lesions noted, posterior pharynx clear NECK: Supple, no adenopathy LUNGS: Tachypnea, decreased breast rounds bilaterally, had no appreciation of expiratory wheeze or rales. CARDIOVASCULAR: Regular rate and rhythm without noted murmurs, ABDOMEN: Soft, non-tender, non-distended with bowel sounds. MUSCULOSKELETAL: No tenderness, deformities, or effusions noted on gross inspection. EXTREMITIES: No cyanosis, clubbing or edema. SKIN: Inspection of the skin reveals no rashes NEUROLOGIC: Alert and oriented x 4. Strength and sensation to light touch were grossly intact x 4. Medications Administered Generic Name Dose Route Start Last Admin Trade Name Bradford PRN Reason Stop Dose Admin Azithromycin 500 mg/ Sodium 250 mls @ 125 mls/hr 11/30/22 04:00 11/30/22 04:14 Chloride IV 125 mls/hr 0600 [place] Administration Methylprednisolone Sodium Succinate 40 mg 11/30/22 04:00 11/30/22 04:15 Methylprednisolone Sod Succ 40 Mg/Ml Vial IVPUSH 40 mg 0600,1800 [place] Administration Discontinued Medications Generic Name Dose Route Start Last Admin Trade Name Freq PRN Reason Stop Dose Admin Albuterol Sulfate 5 mg 11/30/22 03:14 11/30/22 03:18 Albuterol Sulfate (0.083%) 2.5 Mg/3 Ml Vial.Neb INHALE 11/30/22 03:15 5 mg ONCE ONE Administration Albuterol Sulfate 5 mg 11/30/22 03:52 11/30/22 03:54 Albuterol Sulfate (0.083%) 2.5 Mg/3 Ml Vial.Neb INHALE 11/30/22 03:53 5 mg ONCE ONE Administration Magnesium Sulfate 2 gm in 50 mls @ 150 mls/hr 11/30/22 03:07 11/30/22 03:50 Magnesium Sulfate/H2o IV 11/30/22 03:26 Infused ONCE ONE Infusion Medical Decision Making Medical Decision Making [facility] Narrative: 0307: 67-year-old male with history and clinical presentation, DDX: Asthma, COPD, less likely felt to be pneumonia or ACS. INTERVENTION: 5 mg albuterol x2, 2 g Mg sulfate I reviewed all investigations and hematologic indices demonstrated very mild leukocytosis is likely secondary to steroid administration and route to the hospital and this is same for left shift. Patient has chronically stable m acrocytic anemia raising questions regarding B12 deficiency or alcohol use. There is no thrombocytopenia. VBG shows pH-7.41, pCO2 is 39. Chemistry and sees are negative for electrolyte or liver enzyme abnormalities and there is no evidence of MARCUS. Chest x-ray is without evidence of pneumonia and otherwise my interpretation is in agreement with radiology's impression My interpretation is that patient has an acute on chronic COPD exacerbation, he is not febrile and the leukocytosis is likely secondary to steroid administration and therefore will not treat patient with antibiotics at this ti me. I discussed case with inpatient hospitalist who accepts admission Differential Diagnosis Differential Diagnoses: The differential diagnosis associated with the presentation includes Please see the discussion above Admission/Observation Consideration of admission/observation: Escalation of care including admission/observation considered Please see the discussion above Consult Healthcare Provider Management of the patient was discussed with: Hospitalist Please see the discussion above Lab Data MDM Lab Attestation statement: I reviewed the patient's lab results. Please see the discussion above 11/30/22 03:23 11/30/22 03:23 Labs: Lab Results 11/30/22 11/30/22 11/30/22 Range/Units 03:19 03:23 03:23 WBC 11.6 H (4.8-10.8) X10*3/uL RBC 3.73 L (4.60-5.80) X10*6/uL Hgb 12.9 L (14.0-18.0) g/dl Hct 37.2 L (42.0-52.0) % MCV 99.7 H (80.0-98.0) fL MCH 34.6 H (27.0-33.0) pg MCHC 34.7 (31.0-36.0) g/dl RDW 12.2 (11.0-16.0) % Plt Count 212 (160-400) X10*3/uL MPV 10.8 (9.4-12.4) fL Immature Gran % (Auto) 0.4 (0.0-0.4) % Neut % (Auto) 73.5 H (45-73) % Lymph % (Auto) 15.3 L (20-40) % [place] % (Auto) 7.5 (2-11) % Eos % (Auto) 3.0 (0-4) % Baso % (Auto) 0.3 (0-2) % Lymph # (Auto) 1.8 (1.2-4.9) X10*3/uL [place] # (Auto) 0.9 (0.1-1.2) X10*3/uL Eos # (Auto) 0.4 (0.0-0.4) X10*3/uL Baso # (Auto) 0.0 (0.0-0.2) X10*3/uL Abs Immat Gran (auto) 0.05 H (0.00-0.03) X10*3/uL Absolute Neuts (auto) 8.5 H (2.0-8.3) x10*3/uL Absolute Nucleated RBC 0.000 (0.0-0.012) X10*3/uL Nucleated RBC % (auto) 0.0 (0.0-0.2) /100WBC VBG pH 7.41 (7.32-7.43) VBG pCO2 39 mmHg VBG pO2 111 mmHg VBG HCO3 25 (22-26) mmol/L VBG O2 Saturation 99.0 % VBG Base Excess 1.0 mmol/L Sodium 142 (135-145) mmol/L Potassium 3.8 (3.3-5.1) mmol/L Chloride 107 (96-108) mmol/L Carbon Dioxide 23 (22-29) mmol/L Anion Gap 16 (12-20) BUN 15 (9-16) mg/dL Creatinine 0.95 (0.5-1.4) mg/dL Estim Creat Clear Calc 73.3 Estimated GFR > 60 Random Glucose 150 H (60-115) mg/dL Lactic Acid (0.5-2.0) mmol/L Calcium 8.7 D (8.4-10.2) mg/dL Total Bilirubin 0.6 (0.0-1.0) mg/dL AST 19 (5-37) U/L ALT 23 (0-40) U/L Alkaline Phosphatase 55 (39-117) U/L Total Protein 6.9 (6.5-8.0) g/dL Albumin 4.2 (3.5-5.0) g/dL 11/30/22 11/30/22 Range/Units 03:23 03:26 WBC (4.8-10.8) X10*3/uL RBC (4.60-5.80) X10*6/uL Hgb (14.0-18.0) g/dl Hct (42.0-52.0) % MCV (80.0-98.0) fL MCH (27.0-33.0) pg MCHC (31.0-36.0) g/dl RDW (11.0-16.0) % Plt Count (160-400) X10*3/uL MPV (9.4-12.4) fL Immature Gran % (Auto) (0.0-0.4) % Neut % (Auto) (45-73) % Lymph % (Auto) (20-40) % [place] % (Auto) (2-11) % Eos % (Auto) (0-4) % Baso % (Auto) (0-2) % Lymph # (Auto) (1.2-4.9) X10*3/uL [place] # (Auto) (0.1-1.2) X10*3/uL Eos # (Auto) (0.0-0.4) X10*3/uL Baso # (Auto) (0.0-0.2) X10*3/uL Abs Immat Gran (auto) (0.00-0.03) X10*3/uL Absolute Neuts (auto) (2.0-8.3) x10*3/uL Absolute Nucleated RBC (0.0-0.012) X10*3/uL Nucleated RBC % (auto) (0.0-0.2) /100WBC VBG pH 7.41 (7.32-7.43) VBG pCO2 39 mmHg VBG pO2 111 mmHg VBG HCO3 25 (22-26) mmol/L VBG O2 Saturation 99.0 % VBG Base Excess 1.0 mmol/L Sodium (135-145) mmol/L Potassium (3.3-5.1) mmol/L Chloride (96-108) mmol/L Carbon Dioxide (22-29) mmol/L Anion Gap (12-20) BUN (9-16) mg/dL Creatinine (0.5-1.4) mg/dL Estim Creat Clear Calc Estimated GFR Random Glucose (60-115) mg/dL Lactic Acid 1.2 (0.5-2.0) mmol/L Calcium (8.4-10.2) mg/dL Total Bilirubin (0.0-1.0) mg/dL AST (5-37) U/L ALT (0-40) U/L Alkaline Phosphatase (39-117) U/L Total Protein (6.5-8.0) g/dL Albumin (3.5-5.0) g/dL Independent Interpretation I performed an independent interpretation of an: EKG Interpretation: Sinus tachycardia, HR-118, no STEMI, WA/QRS/QTC is within normal limits. Radiology Impression Discussion of test interpretation with radiology: I have reviewed the radiologist's reading. Radiologist Impression: Please see the discussion above External Record Review External record reviewed: Inpatient record, Outpatient record and Prior outpatient labs Chronic Conditions Patient?s care impacted by: Hypertension COPD Critical Care Time Critical Care Time Critical Care Time: Yes Total Critical Care Time: 30 Attestation: I personally attest to this time spent taking care of the patient. Discharge Plan Discharge Clinical Impression: Acute respiratory failure, Acute exacerbation of chronic obstructive pulmonary disease (COPD) Patient Disposition: Admitted As Inpatient
[2022-11-30] MEDS: Magnesium Sulfate/H2O 2 GM/50 ML PIGGYBACK IV (03:17)
[2022-11-30] MEDS: Albuterol Sulfate (0.083%) 2.5 MG/3 ML VIAL.NEB 5 MG INHALE ×2 (03:18→03:54)
[2022-11-30 03:28] LABS: MANUAL DIFF FLAG NO
--- NOTE | 2022-11-30 03:31 | MHC.EDTECH ---
Patient came in by ambulance,patient was changed into hospital attire, vitals and EKG done, patient was placed on the planning technician. Labs were obtained and sent to lab.
[2022-11-30 03:33] LABS: Venous Blood Gas Refer to POC result
[2022-11-30 03:34] LABS: Basophils Percent Auto 0.3 % (0-2); Eosinophils Absolute Auto 0.4 X10*3/uL (0.0-0.4); Hematocrit 37.2 % (42.0-52.0); Hemoglobin 12.9 g/dl (14.0-18.0); Imm Gran Abs Auto 0.05 X10*3/uL (0.00-0.03); Imm Gran Pct Auto 0.4 % (0.0-0.4); Lymphocytes Absolute Auto 1.8 X10*3/uL (1.2-4.9); Lymphocytes Percent Auto 15.3 % (20-40); Mean Corpuscular HGB Conc 34.7 g/dl (31.0-36.0); Mean Corpuscular Hemoglobin 34.6 pg (27.0-33.0); Mean Corpuscular Volume 99.7 fL (80.0-98.0); Mean Platelet Volume 10.8 fL (9.4-12.4); Monocytes Absolute Auto 0.9 X10*3/uL (0.1-1.2); Monocytes Percent Auto 7.5 % (2-11); Neutrophils Absolute Auto 8.5 x10*3/uL (2.0-8.3); Neutrophils Percent Auto 73.5 % (45-73); Platelet Count 212 X10*3/uL (160-400); Red Blood Count 3.73 X10*6/uL (4.60-5.80); Red Cell Distribution Width 12.2 % (11.0-16.0); White Blood Count 11.6 X10*3/uL (4.8-10.8)
[2022-11-30 03:35] LABS: VBG HCO3 25 mmol/L (22-26); VBG pCO2 39 mmHg; VBG pH 7.41 (7.32-7.43); VBG pO2 111 mmHg
[2022-11-30 03:37] LABS: VBG pH 7.41 (7.32-7.43)
[2022-11-30 03:38] LABS: VBG HCO3 25 mmol/L (22-26); VBG pCO2 39 mmHg; VBG pO2 111 mmHg
[2022-11-30 03:44] LABS: Lactic Acid 1.2 mmol/L (0.5-2.0)
[2022-11-30 03:49] LABS: Alanine Aminotransferase 23 U/L (0-40); Albumin Level 4.2 g/dL (3.5-5.0); Alkaline Phosphatase 55 U/L (39-117); Anion Gap 16 (12-20); Aspartate Amino Transferase 19 U/L (5-37); Bilirubin Total 0.6 mg/dL (0.0-1.0); Blood Urea Nitrogen 15 mg/dL (9-16); Calcium 8.7 mg/dL (8.4-10.2); Carbon Dioxide 23 mmol/L (22-29); Chloride 107 mmol/L (96-108); Creatinine Clr Calc Pharmacy 73.3; Estimated Glomerular Filt Rate > 60; Glucose Random 150 mg/dL (60-115); Potassium 3.8 mmol/L (3.3-5.1); Sodium 142 mmol/L (135-145); Total Protein 6.9 g/dL (6.5-8.0)
--- NOTE | 2022-11-30 03:52 | PM.IMHP ---
History of Present Illness Date of Service: 11/30/22 Chief Complaint: Dyspnea This is a 67-year-old male with pertinent history of COPD not on home oxygen, former tobacco use disorder, mixed hyperlipidemia, essential hypertension, gastroesophageal reflux disease presents to the emergency department for evaluation of dyspnea and wheezing. Patient states it started on the day of presentation. He tried to uses home albuterol inhaler without relief. It has been progressive and associated with nonproductive cough. No fevers or chills. Upon EMS arrival, patient was found to be hypoxemic. He denies chest discomfort, palpitations, abdominal pain, changes in urinary or bowel habits. Patient states he quit smoking about 3 months ago. Has never been intubated and does not want any intubation. In the emergency department, patient with wheezing despite multiple DuoNeb treatments. Requiring 3 L supplemental oxygen. Review of Systems Constitutional: Constitutional: Reports no additional constitutional complaints Cardiovascular: Cardiovascular: Reports dyspnea on exertion Respiratory: Respiratory: Reports cough, Reports dyspnea on exertion and Reports wheezing Gastrointestinal: Gastrointestinal: Reports no additional gastrointestinal complaints Genitourinary: Genitourinary: Reports no additional male genitourinary complaints Allergic/Immunologic: Allergic/Immunologic: Reports wheezing [facility] Medical History Asthma exacerbation Chronic lung disease COPD exacerbation GERD (gastroesophageal reflux disease) HLD (hyperlipidemia) Hypertension Hypertension Pertinent family history: No family history of early CAD Surgical History History of appendectomy Social History Household Members: None Household Members Other:: daughter lives next door Housing: Apartment Do you presently have visiting nurse or other home services: No Alcohol intake: never Patient Tobacco Use Status: Former Tobacco user Quit Date: 2 months ago Tobacco use type: Cigarette Cigarette Packs Per Day: 1 Cigarettes Per Day: 20.0 Years Smoked: 50 Smoked in Last 30 Days: No e-Cigarette/Vaping Use: Never Used Second Hand Smoke Exposure: No Use of substances other than those prescribed or required for medical reasons: No Advance Directives: Yes Advance Directives on File: Yes Advance Directives Date on File: 02/26/22 service: No Current occupational status: employed Meds Allergies Allergy/AdvReac Type Severity Reaction Status Date / Time No Known Allergies Allergy Verified 09/22/22 03:00 Home Medications Medication Instructions Recorded Confirmed Last Taken Type atorvastatin 10 mg tablet 1 tab PO DAILY 01/31/21 11/09/22 12/29/21 History doxazosin 2 mg tablet 1 tab PO DAILY 01/31/21 11/09/22 12/29/21 History losartan 50 mg tablet 1 tab PO BID 01/31/21 11/09/22 12/29/21 History multivitamin 1 tab PO DAILY 01/31/21 11/09/22 12/29/21 History omeprazole 20 mg capsule,delayed 20 mg PO DAILY@0630 01/31/21 11/09/22 12/29/21 History release amlodipine 2.5 mg tablet 2.5 mg PO DAILY 08/19/22 11/09/22 Unknown History Physical Exam Vital Signs and Narrative: Vital Signs: Last Vital Signs Temp 97.7 F 11/30/22 03:24 Pulse 117 H 11/30/22 03:24 Resp 24 H 11/30/22 03:24 BP 146/80 H 11/30/22 03:24 Pulse Ox 99 11/30/22 03:24 O2 Del Method Nasal Cannula 11/30/22 03:24 BMI result Body Mass Index 25.1 Middle-aged male lying in bed in mild distress on supplemental oxygen Neck supple, no JVD Tachycardic with regular rhythm, S1-S2 heard Bilateral wheezing without crackles Abdomen soft nontender, no guarding, no rigidity Patient is awake, alert and oriented to self, place, time and person ; no focal motor deficit Psych: Normal mood No pedal edema Results Labs 11/30/22 03:23 11/30/22 03:23 Labs: Laboratory Results - last 24 hr 11/30/22 11/30/22 11/30/22 03:19 03:23 03:23 MCV 99.7 H MCH 34.6 H MCHC 34.7 RDW 12.2 Plt Count 212 MPV 10.8 Immature Gran % (Auto) 0.4 Neut % (Auto) 73.5 H Lymph % (Auto) 15.3 L [place] % (Auto) 7.5 Eos % (Auto) 3.0 Baso % (Auto) 0.3 Lymph # (Auto) 1.8 [place] # (Auto) 0.9 Eos # (Auto) 0.4 Baso # (Auto) 0.0 Abs Immat Gran (auto) 0.05 H Absolute Neuts (auto) 8.5 H Absolute Nucleated RBC 0.000 Nucleated RBC % (auto) 0.0 VBG pH 7.41 VBG pCO2 39 VBG pO2 111 VBG HCO3 25 VBG O2 Saturation 99.0 VBG Base Excess 1.0 Anion Gap 16 Estim Creat Clear Calc 73.3 Estimated GFR > 60 Random Glucose 150 H Lactic Acid Calcium 8.7 D Total Bilirubin 0.6 AST 19 ALT 23 Alkaline Phosphatase 55 Total Protein 6.9 Albumin 4.2 11/30/22 11/30/22 03:23 03:26 MCV MCH MCHC RDW Plt Count MPV Immature Gran % (Auto) Neut % (Auto) Lymph % (Auto) [place] % (Auto) Eos % (Auto) Baso % (Auto) Lymph # (Auto) [place] # (Auto) Eos # (Auto) Baso # (Auto) Abs Immat Gran (auto) Absolute Neuts (auto) Absolute Nucleated RBC Nucleated RBC % (auto) VBG pH 7.41 VBG pCO2 39 VBG pO2 111 VBG HCO3 25 VBG O2 Saturation 99.0 VBG Base Excess 1.0 Anion Gap Estim Creat Clear Calc Estimated GFR Random Glucose Lactic Acid 1.2 Calcium Total Bilirubin AST ALT Alkaline Phosphatase Total Protein Albumin Imaging Radiologist's Impressions: Impressions Chest X-Ray 11/30/22 03:23 IMPRESSION: No acute findings. Assessment and Plan (1) Acute respiratory failure: Status: Acute Plan This is a 67-year-old male with pertinent history of COPD not on home oxygen, former tobacco use disorder, mixed hyperlipidemia, essential hypertension, gastroesophageal reflux disease presents to the emergency department for evaluation of dyspnea and wheezing. #. Acute hypoxemic respiratory failure secondary to acute exacerbation of COPD: Will admit patient and initiate systemic steroids. Scheduled and p.r.n. DuoNebs. Continue home inhaler. Monitor oxygen saturation and wean as tolerated. Maintain oxygen saturation greater than 88%. Initiating azithromycin for pleiotropic effect #. Essential hypertension: Continue home antihypertensives #. Gastroesophageal reflux disease: On PPI #. Mixed hyperlipidemia: On statin Med rec pending DVT prophylaxis: Lovenox 40 mg daily DNR/DNI Cardiac diet Admit as inpatient and will require two night minimum hospital stay for supplemental oxygen Time Spent With Patient Time: Total time managing care of this patient today ____ minutes. Quality Stroke Does the patient have a stroke diagnosis?: No VTE Prior VTE?: No VTE Risk Level:: Medical - moderate - high VTE Device Contraindication: Treatment Not Indicated VTE Drug Contraindication: N/A - Med Ordered
[2022-11-30] MEDS: Azithromycin 500 MG in 0.9 % Sodium Chloride 250 ML 125 MG IV (04:14)
[2022-11-30] MEDS: methylPREDNISolone Sod Succ 40 MG/ML VIAL IVPUSH ×2 (04:15→18:00)
--- NOTE | 2022-11-30 04:27 | MHC.EDTECH ---
Hourly rounds completed and vitals were taken and belongings list completed and a copy was placed in chart. Call bentley within reach
[2022-11-30 05:07] LABS: MANUAL DIFF FLAG NO
[2022-11-30 05:16] LABS: Basophils Percent Auto 0.2 % (0-2); Eosinophils Absolute Auto 0.1 X10*3/uL (0.0-0.4); Eosinophils Percent Auto 0.6 % (0-4); Hematocrit 37.7 % (42.0-52.0); Hemoglobin 12.3 g/dl (14.0-18.0); Imm Gran Abs Auto 0.06 X10*3/uL (0.00-0.03); Imm Gran Pct Auto 0.4 % (0.0-0.4); Lymphocytes Absolute Auto 0.9 X10*3/uL (1.2-4.9); Lymphocytes Percent Auto 6.6 % (20-40); Mean Corpuscular HGB Conc 32.6 g/dl (31.0-36.0); Mean Corpuscular Hemoglobin 33.5 pg (27.0-33.0); Mean Corpuscular Volume 102.7 fL (80.0-98.0); Mean Platelet Volume 10.8 fL (9.4-12.4); Monocytes Absolute Auto 0.4 X10*3/uL (0.1-1.2); Monocytes Percent Auto 2.8 % (2-11); Neutrophils Absolute Auto 12.4 x10*3/uL (2.0-8.3); Neutrophils Percent Auto 89.4 % (45-73); Platelet Count 184 X10*3/uL (160-400); Red Blood Count 3.67 X10*6/uL (4.60-5.80); Red Cell Distribution Width 12.2 % (11.0-16.0); White Blood Count 13.8 X10*3/uL (4.8-10.8)
[2022-11-30 05:27] LABS: Anion Gap 16 (12-20); Blood Urea Nitrogen 15 mg/dL (9-16); Calcium 8.7 mg/dL (8.4-10.2); Carbon Dioxide 22 mmol/L (22-29); Chloride 107 mmol/L (96-108); Creatinine Clr Calc Pharmacy 70.4; Estimated Glomerular Filt Rate > 60; Glucose Random 200 mg/dL (60-115); Potassium 4.2 mmol/L (3.3-5.1); Sodium 141 mmol/L (135-145)
--- NOTE | 2022-11-30 06:17 | MHC.EDTECH ---
Hourly rounds completed and vitals were taken. Call bentley within reach
--- NOTE | 2022-11-30 07:32 | PM.EVENT ---
Event Note Date of Service: 11/30/22 Event Note: This is a 67-year-old male with pertinent history of COPD not on home oxygen, former tobacco use disorder, mixed hyperlipidemia, essential hypertension, gastroesophageal reflux disease presents to the emergency department for evaluation of dyspnea and wheezing. Acute hypoxemic respiratory failure secondary to acute exacerbation of COPD systemic steroids.? Scheduled and p.r.n. DuoNebs.? Continue home inhaler.? Monitor oxygen saturation and wean as tolerated.? Maintain oxygen saturation greater than 88%.? azithromycin Essential hypertension Continue home antihypertensives Gastroesophageal reflux disease On PPI Mixed hyperlipidemia On statin DVT prophylaxis:? Lovenox 40 mg daily DNR/DNI Cardiac diet Time Spent With Patient Time: Total time managing care of this patient today ____ minutes.
[2022-11-30] MEDS: Albuterol/Iprat 2.5/0.5MG 3 ML AMPUL.NEB INHALE ×4 (08:05→21:03)
--- NOTE | 2022-11-30 08:29 | PHA.MEDREC ---
Pharmacy Consult ? Medication Reconciliation Pharmacy has completed the medication reconciliation.
[2022-11-30] MEDS: Enoxaparin Sodium 40 MG/0.4 ML SYRINGE SUBCUT (08:57)
[2022-11-30] MEDS: 0.9 % Sodium Chloride Flush 3 ML SYRINGE IVFLUSH ×2 (09:03→18:01)
--- NOTE | 2022-11-30 09:12 | PC.NURSE ---
pt axox4, respirations even and unlabored, sats 94% on 3L NC, sinus tachy 114 bpm on monitor, skin wpd. wheezes noted bilat on auscultation however pt denies sob/dyspnea. pt denies cp/n/v/d. pt medicated per jun. reports understanding plan of care; denies questions/concerns at this time. call bentley within reach.
--- NOTE | 2022-11-30 18:02 | PC.NURSE ---
Pt resting comfortably, ambulatory to bathroom. Continues to deny pain/discomfort. No diff breathing upon rest, sat 93-95% on 2lpm. Occasional dry cough. Eating well. Awaits bed assgn
--- NOTE | 2022-11-30 19:56 | MHC.EDTECH ---
Patient put in hospital bed
[2022-12-01] VITALS (8 sets, daily range): BP systolic 134–154; BP diastolic 66–78; PULSE 74–98; RESP 17–19; TEMP 36.6–36.8; O2SAT 78–96
[2022-12-01] MEDS: 0.9 % Sodium Chloride Flush 3 ML SYRINGE IVFLUSH (03:15)
[2022-12-01] MEDS: Azithromycin 500 MG in 0.9 % Sodium Chloride 250 ML 125 MG IV (06:22)
[2022-12-01] MEDS: methylPREDNISolone Sod Succ 40 MG/ML VIAL IVPUSH (06:23)
[2022-12-01] MEDS: Albuterol/Iprat 2.5/0.5MG 3 ML AMPUL.NEB INHALE ×2 (08:34→11:09)
[2022-12-01] MEDS: Enoxaparin Sodium 40 MG/0.4 ML SYRINGE SUBCUT (09:17)
--- NOTE | 2022-12-01 09:19 | PC.NURSE ---
pt a&ox3, vss, nsr on the physical therapy manager. inspiratory/expiratory wheezing noted upon auscultation throughout. pt verbalizing 0/10 pain or discomfort when breathing. pt able to speak in full, clear sentences - showing no signs of distress. medication administered per provider order. call bentley placed within reach. will continue to monitor.
--- NOTE | 2022-12-01 11:08 | PC.NURSE ---
rt came to eval the patient per dr. chua request- RT stated they will speak with Dain about the patients home O2 issues.
--- NOTE | 2022-12-01 11:48 | PM.DS ---
DS: Providers Provider Date of Service: 12/01/22 Date of admission: 11/30/22 03:50 Date of discharge: 12/01/22 Primary care physician: Feliberto Britt MD Attending physician on discharge: Dudley Damian Discharging clinician: Dudley Damian DS: Diagnosis Discharge Diagnosis (1) Acute respiratory failure: Status: Acute (2) Acute exacerbation of chronic obstructive pulmonary disease (COPD): Status: Acute DS: Summary Hospital Course Hospital Course: 67-year-old male with pertinent history of COPD not on home oxygen, former tobacco use disorder, mixed hyperlipidemia, essential hypertension, gastroesophageal reflux disease presents to the emergency department for evaluation of dyspnea and wheezing.? Patient states it started on the day of presentation.? He tried to uses home albuterol inhaler without relief.? It has been progressive and associated with nonproductive cough.? No fevers or chills.? Upon EMS arrival, patient was found to be hypoxemic.? He denies chest discomfort, palpitations, abdominal pain, changes in urinary or bowel habits.? Patient states he quit smoking about 3 months ago.? Has never been intubated and does not want any intubation. In the emergency department, patient with wheezing despite multiple DuoNeb treatments.? Requiring 3 L supplemental oxygen. Hospital course: Patient will be admitted for acute hypoxemic respiratory failure secondary COPD exacerbation-started on nebs, steroids also antibiotics seems to be improved significantly-going home with p.o. antibiotic and steroid-please complete the course for 4 days. Home oxygen evaluation done -patient sats oin 90% , does not qualify for home oxygen. plan: please complete the course for 4 day-po azithromycin,prednisone. follow up outpatient Above management discussed with the patient in detail length he understand and in agreement with the above plan, time spent 50 minutes and 50% time spent on counseling. Time Spent with Patient Time attestation: Total time managing care of this patient today ____ minutes. Discharge coordination time: Greater than 30 minutes Quality: Safe Use of Opioids Does Pt have an Active Cancer Diagnosis on the Problem List?: No Quality: Stroke Does the patient have a stroke diagnosis?: No Physical Exam Vital Signs: Vital Signs: Last Vital Signs Temp 98.2 F 12/01/22 09:15 Pulse 85 12/01/22 11:10 Resp 18 12/01/22 11:10 BP 145/71 H 12/01/22 09:15 Pulse Ox 91 L 12/01/22 09:15 O2 Del Method Nasal Cannula 12/01/22 09:15 O2 Flow Rate 1 12/01/22 09:15 BMI result Body Mass Index 25.1 Appearance: Alert.? Oriented X3.?not in distress. cvs: rrr, [id number]. res: clear to auscultation ,no rhonchii or wheezing abd: no rebound or guarding ,nt, bs present. ext pulses present , no cyanosis . neuro: axo3 , nonfocal. DS: Data Data Completed and Pending Completed studies during hospitalization [Text1]: Procedures Assistance with Respiratory Ventilation, Less than 24 Consecutive Hours, Continuous Positive Airway Pressure (09/22/22) Labs on day of discharge: Preliminary micro results at discharge 11/30/22 03:23 Blood Culture - Preliminary Blood - Venous No growth after 24 hours. 11/30/22 03:23 Blood Culture - Preliminary Blood - Venous No growth after 24 hours. Imaging Chest x-ray: Radiologist's impression: ITS Impressions Chest X-Ray 11/30/22 03:23 IMPRESSION: No acute findings. Discharge Plan Discharge Anticipated Discharge Date/Time: 12/01/22 09:40 Patient Disposition: Home, Self-Care Discharge Diagnosis: copd excerebation Referrals: Feliberto Britt MD [Primary Care Provider] - 1 Week Discharge Medications: New prednisone 20 mg tablet 20 mg PO BID Qty: 8 0RF azithromycin 250 mg tablet 250 mg PO DAILY 4 Days Qty: 4 0RF Rx Instructions: start on day 2 of therapy Continued multivitamin Tablet 1 tab PO DAILY losartan 50 mg tablet 1 tab PO BID atorvastatin 10 mg tablet 1 tab PO DAILY omeprazole 20 mg Capsule,Delayed Release(Dr/Ec) 20 mg PO DAILY@0630 doxazosin 2 mg tablet 1 tab PO DAILY (DME) Aerochamber MV Spacer See Rx Instructions .Route Qty: 10 0RF Rx Instructions: As directed amlodipine 2.5 mg tablet 2.5 mg PO DAILY ipratropium-albuterol 0.5 mg-3 mg(2.5 mg base)/3 mL Solution For Nebulization 3 ml inhalation Q4H PRN (Reason: Wheezing) Qty: 300 0RF albuterol sulfate [Proventil HFA] 90 mcg/actuation HFA aerosol inhaler 2 puff inhalation QID PRN (Reason: shortness of breath or wheezing) Qty: 8.5 2RF Incruse Ellipta 62.5 mcg/actuation blister with device 1 inh inhalation BEDTIME Qty: 30 0RF Discharge Orders: Discharge Order (Routine); Ordered 12/01/22 Ordered By: Dudley Damian Diet: Advance to usual diet Activity on Discharge: As tolerated Stand Alone Forms: Patient Portal Discharge page Care Plan Goals: Patient will be admitted for acute hypoxemic respiratory failure secondary COPD exacerbation-started on nebs, steroids also antibiotics seems to be improved significantly-going home with p.o. antibiotic and steroid-please complete the course for 4 days. Home oxygen evaluation done -patient sats oin 90% , does not qualify for home oxygen. Health Concerns: As above. Plan of Treatment: As above. Assessment: As above. Discharge Date/Time: 12/01/22 12:56
--- NOTE | 2022-12-01 12:31 | PC.NURSE ---
spoke with rafael from RT- he stated that he is sending the patient home with a portable tank the patient will call [facility] to obtain a portable tank for home usage, RT stated that pts large home concentrator works without problems and they just need a portable. dr. chua was notified and discharge will be shortly.
--- NOTE | 2022-12-01 14:12 | MHC.CM.PN ---
Patient d/c'd home with [facility] [place] for oxygen prior to being seen by case management.
== END 2022-12-01 12:56 | disposition home or self-care (01) | DRG 190 ==
LOC: HO.ED 03:38 → HO.EDOVER 03:55
PROVIDERS: Admitting Provider Student in an Organized Health Care Education/Training Program; Emergency Provider Student in an Organized Health Care Education/Training Program; PCP Internal Medicine; Visit Provider Internal Medicine
DX: J44.1 Chronic obstructive pulmonary disease with (acute) exacerbation (principal); J96.01 Acute respiratory failure with hypoxia; Z66 Do not resuscitate; E78.2 Mixed hyperlipidemia; K21.9 Gastro-esophageal reflux disease without esophagitis; I10 Essential (primary) hypertension; Z87.891 Personal history of nicotine dependence; Z79.899 Other long term (current) drug therapy
CPT/HCPCS: 36415; 71045; 80048; 80053; 82803; 83605; 85025; 87040; 93005; 94640; 99285; J0456; J1650; J2920; J3475

== ENCOUNTER → 2022-11-30 03:03 | Outpatient (BNV) | payer MEDICARE, SELFPAY | PROVIDERS: Admitting Provider Student in an Organized Health Care Education/Training Program; Emergency Provider Student in an Organized Health Care Education/Training Program; PCP Internal Medicine; Visit Provider Internal Medicine Cardiovascular Disease | DX: R00.0 Tachycardia, unspecified (principal) | CPT/HCPCS: 93010 ==

== ENCOUNTER → 2022-11-30 03:50 | Outpatient (BNV) | payer MEDICARE, SELFPAY | PROVIDERS: Admitting Provider Student in an Organized Health Care Education/Training Program; Emergency Provider Student in an Organized Health Care Education/Training Program; PCP Internal Medicine; Visit Provider Student in an Organized Health Care Education/Training Program | DX: J96.01 Acute respiratory failure with hypoxia (principal); J44.1 Chronic obstructive pulmonary disease with (acute) exacerbation | CPT/HCPCS: 99222; 99239; 99499 ==

== ENCOUNTER 2022-12-17 04:00 | Emergency (ER) | payer MEDICARE, SELFPAY ==
--- NOTE | ~2022-12-17 | XR_ITS ---
EXAMINATION: XR CHEST 5:15 AM CLINICAL INFORMATION: Shortness of breath COMPARISON: 11/30/2022 TECHNIQUE: Frontal view of the chest was obtained. FINDINGS: No significant abnormality is noted involving the heart, lungs, mediastinum, bony thorax or soft tissues. XR/XR chest 1V IMPRESSION: No acute findings or interval change.
[2022-12-17 07:01] LABS: Lactic Acid 0.9 mmol/L (0.5-2.0)
[2022-12-17 07:02] LABS: B Type Natriuretic Peptide 16 pg/mL (<100); Troponin-I High Sensitivity 2.8 ng/L (<3.5-35.0)
[2022-12-17 07:03] LABS: Anion Gap 13 (12-20); Blood Urea Nitrogen 15 mg/dL (9-16); Carbon Dioxide 26 mmol/L (22-29); Chloride 107 mmol/L (96-108); Estimated Glomerular Filt Rate > 60; Magnesium 1.6 mg/dL (1.6-2.6); Potassium 3.9 mmol/L (3.3-5.1); Sodium 142 mmol/L (135-145)
[2022-12-17 07:12] LABS: COVID-19 Test Negative (Negative); IDNOW Serial# 6674DD1D
[2022-12-17 07:24] LABS: Basophils Absolute Auto 0.1 X10*3/uL (0.0-0.2); Basophils Percent Auto 0.6 % (0-2); Eosinophils Absolute Auto 0.4 X10*3/uL (0.0-0.4); Eosinophils Percent Auto 3.5 % (0-4); Hematocrit 39.9 % (42.0-52.0); Hemoglobin 13.3 g/dl (14.0-18.0); Imm Gran Abs Auto 0.06 X10*3/uL (0.00-0.03); Imm Gran Pct Auto 0.6 % (0.0-0.4); Lymphocytes Absolute Auto 2.6 X10*3/uL (1.2-4.9); Lymphocytes Percent Auto 24.6 % (20-40); MANUAL DIFF FLAG NO; Mean Corpuscular HGB Conc 33.3 g/dl (31.0-36.0); Mean Corpuscular Hemoglobin 34.1 pg (27.0-33.0); Mean Corpuscular Volume 102.3 fL (80.0-98.0); Mean Platelet Volume 10.7 fL (9.4-12.4); Monocytes Absolute Auto 1.2 X10*3/uL (0.1-1.2); Monocytes Percent Auto 10.9 % (2-11); Neutrophils Absolute Auto 6.4 x10*3/uL (2.0-8.3); Neutrophils Percent Auto 59.8 % (45-73); Platelet Count 231 X10*3/uL (160-400); Red Cell Distribution Width 12.3 % (11.0-16.0); White Blood Count 10.7 X10*3/uL (4.8-10.8)
== END 2022-12-17 08:36 | disposition home or self-care (01) ==
PROVIDERS: Emergency Provider Emergency Medicine
DX: J44.1 Chronic obstructive pulmonary disease with (acute) exacerbation (principal); R06.02 Shortness of breath; Z20.822 Contact with and (suspected) exposure to COVID-19; Z99.81 Dependence on supplemental oxygen
CPT/HCPCS: 36415; 71045; 80051; 82565; 83605; 83735; 83880; 84484; 84520; 85025; 87040; 87635; 96374; 96375; 99284

== ENCOUNTER 2022-12-28 23:22 | Emergency (ER) | payer MEDICARE, SELFPAY ==
--- NOTE | ~2022-12-28 | XR_ITS ---
EXAMINATION: XR CHEST CLINICAL INFORMATION: Shortness of breath. COMPARISON: Chest x-ray December 17, 2022 TECHNIQUE: Frontal portable view of the chest was obtained. 12:01 AM FINDINGS: No significant abnormality is noted involving the heart, lungs, mediastinum, bony thorax or soft tissues. XR/XR chest 1V IMPRESSION: Unremarkable examination.
[2022-12-28 23:27] VITALS: BP 210/100; PULSE 126; O2SAT 96
[2022-12-28 23:29] VITALS: PULSE 116; RESP 24; O2SAT 97; BMI 25.1
--- NOTE | 2022-12-28 23:29 | ECG_ITS ---
Test Reason : SOB Blood Pressure : / mmHG Vent. Rate : 119 BPM Atrial Rate : 119 BPM P-R Int : 142 ms QRS Dur : 098 ms QT Int : 338 ms P-R-T Axes : 086 085 057 degrees QTc Int : 475 ms Sinus tachycardia Biatrial enlargement Abnormal ECG When compared with ECG of 30-NOV-2022 03:26, No significant change was found Referred By: Jacinta Forrester Electronically Signed By:ESE MORA
--- NOTE | 2022-12-28 23:31 | ED_ITS ---
HPI - SOB/Dyspnea General Chief Complaint: Dyspnea Stated Complaint: diff breathing Time Seen by Provider: 12/28/22 23:29 Source: patient Mode of arrival: EMS History of Present Illness HPI Narrative: 67-year-old male with history of COPD is brought in by ambulance for shortness of breath home which started . EMS states that patient was out oblique wheezing and he has received 2 nebulized treatments given at home and patient is on as needed oxygen at 5 L. Related Data Home Medications Medication Instructions Recorded Confirmed atorvastatin 10 mg tablet 1 tab PO DAILY 01/31/21 11/30/22 doxazosin 2 mg tablet 1 tab PO DAILY 01/31/21 11/30/22 losartan 50 mg tablet 1 tab PO BID 01/31/21 11/30/22 multivitamin 1 tab PO DAILY 01/31/21 11/30/22 omeprazole 20 mg capsule,delayed 20 mg PO DAILY@0630 01/31/21 11/30/22 release amlodipine 2.5 mg tablet 2.5 mg PO DAILY 08/19/22 11/30/22 Previous Rx's Medication Instructions Recorded inhalational spacing device #10 ea 12/01/21 (Aerochamber MV spacer) ipratropium 0.5 mg-albuterol 3 mg 3 ml inhalation Q4H PRN Wheezing 09/24/22 (2.5 mg base)/3 mL nebulization #300 mL soln albuterol sulfate 90 mcg/actuation 2 puff inhalation QID PRN 11/10/22 aerosol inhaler (Proventil HFA) shortness of breath or wheezing #8.5 grams umeclidinium 62.5 mcg/actuation 1 inh inhalation BEDTIME #30 ea 11/10/22 blister powder for inhalation (Incruse Ellipta) azithromycin 250 mg tablet 250 mg PO DAILY 4 days #4 tabs 12/01/22 prednisone 20 mg tablet 20 mg PO BID #8 tabs 12/01/22 doxycycline hyclate 100 mg capsule 100 mg PO BID 7 days #14 caps 12/17/22 prednisone 20 mg tablet 60 mg PO DAILY 5 days #15 tabs 12/17/22 prednisone 50 mg tablet 50 mg PO DAILY 4 days #4 tabs 12/29/22 Allergies Allergy/AdvReac Type Severity Reaction Status Date / Time No Known Allergies Allergy Verified 12/28/22 23:44 Review of Systems Review of Systems: Pertinent positives and negatives as stated in [facility] Past Medical History Source: nursing notes reviewed Medical History Asthma exacerbation Chronic lung disease COPD exacerbation GERD (gastroesophageal reflux disease) HLD (hyperlipidemia) Hypertension Hypertension Surgical History History of appendectomy Social History Social History Household Members: None Household Members Other:: daughter lives next door Housing: Apartment Do you presently have visiting nurse or other home services: No Alcohol intake: never Patient Tobacco Use Status: Former Tobacco user Quit Date: 2 months ago Tobacco use type: Cigarette Cigarette Packs Per Day: 1 Cigarettes Per Day: 20.0 Years Smoked: 50 Smoked in Last 30 Days: No e-Cigarette/Vaping Use: Never Used Second Hand Smoke Exposure: No Use of substances other than those prescribed or required for medical reasons: No Advance Directives: Yes Advance Directives on File: Yes Advance Directives Date on File: 02/26/22 service: No Current occupational status: employed Physical Exam Vital Signs: Vital Signs: Last Vital Signs Temp 97.8 F 12/28/22 23:52 Pulse 80 12/29/22 02:07 Resp 15 12/29/22 02:07 BP 136/94 H 12/28/22 23:52 Pulse Ox 97 12/28/22 23:29 O2 Del Method Simple Mask 12/28/22 23:29 Oxygen Flow Rate 8 12/28/22 23:29 BMI result Body Mass Index 25.1 VITAL SIGNS: Reviewed. GENERAL: Well developed, well nourished, in no acute distress. HEAD: Normocephalic/atraumatic EYES: PERRLA, EOMI EARS: Ext canals without abnormality NOSE: Nares patent bilateral OROPHARYNX: no oral lesions noted, posterior pharynx clear NECK: Supple, no adenopathy LUNGS: Decreased breath sounds bilaterally but there is significant expiratory wheeze throughout.. SpO2<97> on 5 L CARDIOVASCULAR: Regular rate and rhythm without noted murmurs ABDOMEN: Soft, non-tender, non-distended with bowel sounds. MUSCULOSKELETAL: No tenderness, deformities, or effusions noted on gross inspection. EXTREMITIES: No cyanosis, clubbing or edema. SKIN: Inspection of the skin reveals no rashes NEUROLOGIC: Alert and oriented x 4. Strength and sensation to light touch were grossly intact x 4. Medications Administered Discontinued Medications Generic Name Dose Route Start Last Admin Trade Name Bradford PRN Reason Stop Dose Admin Albuterol Sulfate 7.5 mg/ 0 mg 12/28/22 23:30 12/28/22 23:46 Albuterol/Ipratropium 3 ml INHALE 12/28/22 23:31 7.5 each ONCE ONE Administration Albuterol Sulfate 7.5 mg/ 0 mg 12/29/22 01:55 12/29/22 02:05 Albuterol/Ipratropium 3 ml INHALE 12/29/22 01:56 2.5 each ONCE ONE Administration Methylprednisolone Sodium Succinate 125 mg 12/28/22 23:35 12/28/22 23:47 Methylprednisolone Sod Succ 125 Mg/2 Ml Vial IVPUSH 12/28/22 23:36 125 mg ONCE ONE Administration Medical Decision Making Medical Decision Making [facility] Narrative: 2330: 67-year-old male with history and clinical presentation, DDX: Exacerbation of chronic lung disease, viral illness, felt to be less/pneumonia or ACS. INTERVENTION: DuoNeb 10 mg, Solu-Medrol I reviewed all investigations, there is a slight leukocytosis without left shift on hematologic indices and otherwise a microcytic anemia that is chronically stable and no thrombocytopenia. Coagulation studies are within normal limits. VBG is not significant for respiratory acidosis. Chemistry indices are without electrolyte or liver enzyme abnormalities and no MARCUS. Viral testing is negative for evidence of COVID/influenza/RSV. Chest x-ray negative for infiltrate and otherwise my interpretation is in agreement with radiology's impression. Patient received 2-10 mg DuoNebs and on re-evaluation patient reports he is feeling much better, clinical exam he is significantly improved and I feel that patient is safe for discharge to home with a short course of steroids and cont inuing his home dose of respiratory inhalers. Differential Diagnosis Differential Diagnoses: The differential diagnosis associated with the presentation includes Please see the discussion above Admission/Observation Consideration of admission/observation: Escalation of care including admission/observation considered Please see the discussion above Lab Data [facility] Lab Attestation statement: I reviewed the patient's lab results. Please see the discussion above 12/28/22 23:43 12/28/22 23:43 Labs: Lab Results 12/28/22 12/28/22 12/28/22 Range/Units 23:43 23:43 23:43 WBC 10.9 H (4.8-10.8) X10*3/uL RBC 3.83 L (4.60-5.80) X10*6/uL Hgb 13.5 L (14.0-18.0) g/dl Hct 38.3 L (42.0-52.0) % MCV 100.0 H (80.0-98.0) fL MCH 35.2 H (27.0-33.0) pg MCHC 35.2 (31.0-36.0) g/dl RDW 12.1 (11.0-16.0) % Plt Count 233 (160-400) X10*3/uL MPV 10.1 (9.4-12.4) fL Immature Gran % (Auto) 1.2 H (0.0-0.4) % Neut % (Auto) 64.0 (45-73) % Lymph % (Auto) 19.0 L (20-40) % [place] % (Auto) 8.0 (2-11) % Eos % (Auto) 7.5 H (0-4) % Baso % (Auto) 0.3 (0-2) % Lymph # (Auto) 2.1 (1.2-4.9) X10*3/uL [place] # (Auto) 0.9 (0.1-1.2) X10*3/uL Eos # (Auto) 0.8 H (0.0-0.4) X10*3/uL Baso # (Auto) 0.0 (0.0-0.2) X10*3/uL Abs Immat Gran (auto) 0.13 H (0.00-0.03) X10*3/uL Absolute Neuts (auto) 7.0 (2.0-8.3) x10*3/uL Absolute Nucleated RBC 0.000 (0.0-0.012) X10*3/uL Nucleated RBC % (auto) 0.0 (0.0-0.2) /100WBC PT 10.8 L (11.1-13.3) SEC INR 0.9 (0.9-1.1) VBG pH (7.32-7.43) VBG pCO2 mmHg VBG pO2 mmHg VBG HCO3 (22-26) mmol/L VBG O2 Saturation % VBG Base Excess mmol/L Sodium 141 (135-145) mmol/L Potassium 4.0 (3.3-5.1) mmol/L Chloride 106 (96-108) mmol/L Carbon Dioxide 28 (22-29) mmol/L Anion Gap 11 L (12-20) BUN 13 (9-16) mg/dL Creatinine 0.95 (0.5-1.4) mg/dL Estim Creat Clear Calc 73.3 Estimated GFR > 60 Random Glucose 130 H (60-115) mg/dL Lactic Acid (0.5-2.0) mmol/L Calcium 9.0 (8.4-10.2) mg/dL Total Bilirubin 0.8 (0.0-1.0) mg/dL AST 21 (5-37) U/L ALT 31 (0-40) U/L Alkaline Phosphatase 53 (39-117) U/L Troponin I High Sens (<3.5-35.0) ng/L Total Protein 6.6 (6.5-8.0) g/dL Albumin 4.1 (3.5-5.0) g/dL Ethyl Alcohol < 10 mg/dL Influenza Type A (PCR) (Negative) Influenza Type B (PCR) (Negative) RSV RNA Qual (PCR) (Negative) SARS-CoV-2 RNA (RT-PCR) (Negative) 12/28/22 12/28/22 12/28/22 Range/Units 23:43 23:43 23:43 WBC (4.8-10.8) X10*3/uL RBC (4.60-5.80) X10*6/uL Hgb (14.0-18.0) g/dl Hct (42.0-52.0) % MCV (80.0-98.0) fL MCH (27.0-33.0) pg MCHC (31.0-36.0) g/dl RDW (11.0-16.0) % Plt Count (160-400) X10*3/uL MPV (9.4-12.4) fL Immature Gran % (Auto) (0.0-0.4) % Neut % (Auto) (45-73) % Lymph % (Auto) (20-40) % [place] % (Auto) (2-11) % Eos % (Auto) (0-4) % Baso % (Auto) (0-2) % Lymph # (Auto) (1.2-4.9) X10*3/uL [place] # (Auto) (0.1-1.2) X10*3/uL Eos # (Auto) (0.0-0.4) X10*3/uL Baso # (Auto) (0.0-0.2) X10*3/uL Abs Immat Gran (auto) (0.00-0.03) X10*3/uL Absolute Neuts (auto) (2.0-8.3) x10*3/uL Absolute Nucleated RBC (0.0-0.012) X10*3/uL Nucleated RBC % (auto) (0.0-0.2) /100WBC PT (11.1-13.3) SEC INR (0.9-1.1) VBG pH (7.32-7.43) VBG pCO2 mmHg VBG pO2 mmHg VBG HCO3 (22-26) mmol/L VBG O2 Saturation % VBG Base Excess mmol/L Sodium (135-145) mmol/L Potassium (3.3-5.1) mmol/L Chloride (96-108) mmol/L Carbon Dioxide (22-29) mmol/L Anion Gap (12-20) BUN (9-16) mg/dL Creatinine (0.5-1.4) mg/dL Estim Creat Clear Calc Estimated GFR Random Glucose (60-115) mg/dL Lactic Acid 0.7 (0.5-2.0) mmol/L Calcium (8.4-10.2) mg/dL Total Bilirubin (0.0-1.0) mg/dL AST (5-37) U/L ALT (0-40) U/L Alkaline Phosphatase (39-117) U/L Troponin I High Sens 5.5 D (<3.5-35.0) ng/L Total Protein (6.5-8.0) g/dL Albumin (3.5-5.0) g/dL Ethyl Alcohol mg/dL Influenza Type A (PCR) NEGATIVE (Negative) Influenza Type B (PCR) NEGATIVE (Negative) RSV RNA Qual (PCR) NEGATIVE (Negative) SARS-CoV-2 RNA (RT-PCR) NEGATIVE (Negative) 12/28/22 Range/Units 23:52 WBC (4.8-10.8) X10*3/uL RBC (4.60-5.80) X10*6/uL Hgb (14.0-18.0) g/dl Hct (42.0-52.0) % MCV (80.0-98.0) fL MCH (27.0-33.0) pg MCHC (31.0-36.0) g/dl RDW (11.0-16.0) % Plt Count (160-400) X10*3/uL MPV (9.4-12.4) fL Immature Gran % (Auto) (0.0-0.4) % Neut % (Auto) (45-73) % Lymph % (Auto) (20-40) % [place] % (Auto) (2-11) % Eos % (Auto) (0-4) % Baso % (Auto) (0-2) % Lymph # (Auto) (1.2-4.9) X10*3/uL [place] # (Auto) (0.1-1.2) X10*3/uL Eos # (Auto) (0.0-0.4) X10*3/uL Baso # (Auto) (0.0-0.2) X10*3/uL Abs Immat Gran (auto) (0.00-0.03) X10*3/uL Absolute Neuts (auto) (2.0-8.3) x10*3/uL Absolute Nucleated RBC (0.0-0.012) X10*3/uL Nucleated RBC % (auto) (0.0-0.2) /100WBC PT (11.1-13.3) SEC INR (0.9-1.1) VBG pH 7.38 (7.32-7.43) VBG pCO2 48 mmHg VBG pO2 86 mmHg VBG HCO3 29 H (22-26) mmol/L VBG O2 Saturation 98.0 % VBG Base Excess 3.4 mmol/L Sodium (135-145) mmol/L Potassium (3.3-5.1) mmol/L Chloride (96-108) mmol/L Carbon Dioxide (22-29) mmol/L Anion Gap (12-20) BUN (9-16) mg/dL Creatinine (0.5-1.4) mg/dL Estim Creat Clear Calc Estimated GFR Random Glucose (60-115) mg/dL Lactic Acid (0.5-2.0) mmol/L Calcium (8.4-10.2) mg/dL Total Bilirubin (0.0-1.0) mg/dL AST (5-37) U/L ALT (0-40) U/L Alkaline Phosphatase (39-117) U/L Troponin I High Sens (<3.5-35.0) ng/L Total Protein (6.5-8.0) g/dL Albumin (3.5-5.0) g/dL Ethyl Alcohol mg/dL Influenza Type A (PCR) (Negative) Influenza Type B (PCR) (Negative) RSV RNA Qual (PCR) (Negative) SARS-CoV-2 RNA (RT-PCR) (Negative) Independent Interpretation Interpretation: Sinus tachycardia, HR-119, no STEMI, DE/QRS/QTC is within normal limits. Radiology Impression Discussion of test interpretation with radiology: I have reviewed the radiologist's reading. Radiologist Impression: Please see the discussion above External Record Review External record reviewed: Outpatient record, Prior outpatient labs and Prior outpatient radiology Chronic Conditions Patient?s care impacted by: Hypertension Critical Care Time Critical Care Time Critical Care Time: Yes Total Critical Care Time: 30 Attestation: I personally attest to this time spent taking care of the patient. Discharge Plan Discharge Clinical Impression: Acute exacerbation of chronic obstructive pulmonary disease (COPD) Patient Disposition: Home, Self-Care Instructions: COPD (Chronic Obstructive Pulmonary Disease) (ED) Additional Instructions: 1. Resume all home medications as prescribed. 2. Complete the short course of steroids as prescribed. 3. Please follow-up with your primary care provider by calling the office in the morning. Return to the ER for any worsening symptoms. Prescriptions: New prednisone 50 mg tablet 50 mg PO DAILY 4 Days Qty: 4 0RF No Action multivitamin Tablet 1 tab PO DAILY losartan 50 mg tablet 1 tab PO BID atorvastatin 10 mg tablet 1 tab PO DAILY omeprazole 20 mg Capsule,Delayed Release(Dr/Ec) 20 mg PO DAILY@0630 doxazosin 2 mg tablet 1 tab PO DAILY (DME) Aerochamber MV Spacer See Rx Instructions .Route Qty: 10 0RF Rx Instructions: As directed amlodipine 2.5 mg tablet 2.5 mg PO DAILY doxycycline hyclate 100 mg capsule 100 mg PO BID 7 Days Qty: 14 0RF prednisone 20 mg tablet 60 mg PO DAILY 5 Days Qty: 15 0RF ipratropium-albuterol 0.5 mg-3 mg(2.5 mg base)/3 mL Solution For Nebulization 3 ml inhalation Q4H PRN (Reason: Wheezing) Qty: 300 0RF albuterol sulfate [Proventil HFA] 90 mcg/actuation HFA aerosol inhaler 2 puff inhalation QID PRN (Reason: shortness of breath or wheezing) Qty: 8.5 2RF Incruse Ellipta 62.5 mcg/actuation blister with device 1 inh inhalation BEDTIME Qty: 30 0RF prednisone 20 mg tablet 20 mg PO BID Qty: 8 0RF azithromycin 250 mg tablet 250 mg PO DAILY 4 Days Qty: 4 0RF Rx Instructions: start on day 2 of therapy
--- NOTE | 2022-12-28 23:42 | PC.NURSE ---
pt arrived to ED receiving his third breathing treatment via duo neb. complete on arrival and pt placed back on 5L NC but still working hard to breathe with audible wheezing. respiratory at bedside administering another breathing trx. iv line placed, labs being drawn. pt on panel monitor.
[2022-12-28] MEDS: Albuterol Sulfate 7.5 MG, Albuterol/Iprat 2.5/0.5MG 3 ML 3 ML INHALE (23:46)
[2022-12-28 23:47] VITALS: PULSE 115; RESP 20; O2SAT 98
[2022-12-28] MEDS: methylPREDNISolone Sod Succ 125 MG/2 ML VIAL IVPUSH (23:47)
[2022-12-28 23:52] VITALS: BP 136/94; TEMP 36.6
--- NOTE | 2022-12-28 23:52 | MHC.EDTECH ---
This Tech assumed care of this PT upon arrival. EKG completed and handed to provider, PT placed on youth nutritional monitor, Labs drawn and sent for processing
[2022-12-28 23:53] LABS: Basophils Percent Auto 0.3 % (0-2); Eosinophils Absolute Auto 0.8 X10*3/uL (0.0-0.4); Eosinophils Percent Auto 7.5 % (0-4); Hematocrit 38.3 % (42.0-52.0); Hemoglobin 13.5 g/dl (14.0-18.0); Imm Gran Abs Auto 0.13 X10*3/uL (0.00-0.03); Imm Gran Pct Auto 1.2 % (0.0-0.4); Lymphocytes Absolute Auto 2.1 X10*3/uL (1.2-4.9); MANUAL DIFF FLAG NO; Mean Corpuscular HGB Conc 35.2 g/dl (31.0-36.0); Mean Corpuscular Hemoglobin 35.2 pg (27.0-33.0); Mean Platelet Volume 10.1 fL (9.4-12.4); Monocytes Absolute Auto 0.9 X10*3/uL (0.1-1.2); Platelet Count 233 X10*3/uL (160-400); Red Blood Count 3.83 X10*6/uL (4.60-5.80); Red Cell Distribution Width 12.1 % (11.0-16.0); White Blood Count 10.9 X10*3/uL (4.8-10.8)
[2022-12-28 23:56] LABS: Venous Blood Gas Refer to POC result
[2022-12-28 23:58] LABS: VBG Base Excess 3.4 mmol/L; VBG HCO3 29 mmol/L (22-26); VBG pCO2 48 mmHg; VBG pH 7.38 (7.32-7.43); VBG pO2 86 mmHg
[2022-12-28 23:58] LABS: INTERNATIONAL NORM RATIO 0.9 (0.9-1.1); Prothrombin Time 10.8 SEC (11.1-13.3)
[2022-12-29 00:13] LABS: Lactic Acid 0.7 mmol/L (0.5-2.0)
[2022-12-29 00:18] LABS: Alanine Aminotransferase 31 U/L (0-40); Albumin Level 4.1 g/dL (3.5-5.0); Alkaline Phosphatase 53 U/L (39-117); Anion Gap 11 (12-20); Aspartate Amino Transferase 21 U/L (5-37); Bilirubin Total 0.8 mg/dL (0.0-1.0); Blood Urea Nitrogen 13 mg/dL (9-16); Carbon Dioxide 28 mmol/L (22-29); Chloride 106 mmol/L (96-108); Creatinine Clr Calc Pharmacy 73.3; Estimated Glomerular Filt Rate > 60; Glucose Random 130 mg/dL (60-115); Sodium 141 mmol/L (135-145); Total Protein 6.6 g/dL (6.5-8.0)
[2022-12-29 00:24] LABS: Troponin-I High Sensitivity 5.5 ng/L (<3.5-35.0)
[2022-12-29 00:34] LABS: Influenza A PCR NEGATIVE (Negative); Influenza B PCR NEGATIVE (Negative); Resp Syncy Virus RNA Qual PCR NEGATIVE (Negative); SARS COV2 PCR INHOUSE NEGATIVE (Negative)
[2022-12-29 01:09] LABS: Ethanol < 10 mg/dL
[2022-12-29] MEDS: Albuterol Sulfate 7.5 MG, Albuterol/Iprat 2.5/0.5MG 3 ML 3 ML INHALE (02:05)
[2022-12-29 02:07] VITALS: PULSE 80; RESP 15; O2SAT 94
--- NOTE | 2022-12-29 04:56 | MHC.EDTECH ---
Call out to [facility] @[phone] book BLS transport back home with continuously O2 ETA of 1 hour
[2022-12-29 06:38] VITALS: O2SAT 93
== END 2022-12-29 06:39 | disposition home or self-care (01) ==
PROVIDERS: Emergency Provider Student in an Organized Health Care Education/Training Program; PCP Internal Medicine
DX: J44.1 Chronic obstructive pulmonary disease with (acute) exacerbation (principal); R06.02 Shortness of breath; R00.0 Tachycardia, unspecified; Z20.822 Contact with and (suspected) exposure to COVID-19; Z20.828 Contact with and (suspected) exposure to other viral communicable diseases; Z79.899 Other long term (current) drug therapy
CPT/HCPCS: 0241U; 71045; 80053; 80307; 82803; 83605; 84484; 85025; 85610; 87040; 93005; 94640; 99284; 99285; J2930

== ENCOUNTER 2023-01-04 00:08 | Emergency (ER) | payer MEDICARE, SELFPAY ==
[2023-01-04] VITALS (8 sets, daily range): BP systolic 120–181; BP diastolic 63–86; PULSE 77–110; RESP 15–24; TEMP 36.6–36.7; O2SAT 92–97; BMI 25.1
--- NOTE | 2023-01-04 | ECG_ITS ---
Test Reason : SOB Blood Pressure : / mmHG Vent. Rate : 090 BPM Atrial Rate : 090 BPM P-R Int : 134 ms QRS Dur : 100 ms QT Int : 368 ms P-R-T Axes : 080 073 061 degrees QTc Int : 450 ms Normal sinus rhythm Biatrial enlargement Abnormal ECG When compared with ECG of 28-DEC-2022 23:30, Heart rate has decreased Referred By: Generic ED Physician Electronically Signed By:ESE MORA
--- NOTE | ~2023-01-04 | XR_ITS ---
EXAMINATION: XR CHEST CLINICAL INFORMATION: Shortness of breath COMPARISON: 12/29/2022 TECHNIQUE: Frontal view of the chest was obtained. FINDINGS: The lung volumes are low. The cardiomediastinal silhouette is stable. There are faint basilar opacities overlying the diaphragms. The lungs are otherwise clear. There are no significant pleural effusions. The bony structures and soft tissues are unremarkable. XR/XR chest 1V IMPRESSION: Low lung volumes limits evaluation. There appears to be atelectatic change at the lung bases. No other significant abnormality seen.
[2023-01-04 00:58] LABS: MANUAL DIFF FLAG NO
[2023-01-04 00:59] LABS: Basophils Absolute Auto 0.1 X10*3/uL (0.0-0.2); Basophils Percent Auto 0.5 % (0-2); Eosinophils Absolute Auto 0.3 X10*3/uL (0.0-0.4); Hematocrit 38.5 % (42.0-52.0); Hemoglobin 13.3 g/dl (14.0-18.0); Imm Gran Abs Auto 0.34 X10*3/uL (0.00-0.03); Lymphocytes Absolute Auto 3.1 X10*3/uL (1.2-4.9); Lymphocytes Percent Auto 27.6 % (20-40); Mean Corpuscular HGB Conc 34.5 g/dl (31.0-36.0); Mean Corpuscular Hemoglobin 34.3 pg (27.0-33.0); Mean Corpuscular Volume 99.2 fL (80.0-98.0); Mean Platelet Volume 10.6 fL (9.4-12.4); Monocytes Percent Auto 8.6 % (2-11); Neutrophils Absolute Auto 6.4 x10*3/uL (2.0-8.3); Neutrophils Percent Auto 57.3 % (45-73); Platelet Count 230 X10*3/uL (160-400); Red Blood Count 3.88 X10*6/uL (4.60-5.80); White Blood Count 11.2 X10*3/uL (4.8-10.8)
[2023-01-04 01:16] LABS: Alanine Aminotransferase 31 U/L (0-40); Albumin Level 4.2 g/dL (3.5-5.0); Alkaline Phosphatase 46 U/L (39-117); Anion Gap 13 (12-20); Aspartate Amino Transferase 17 U/L (5-37); Bilirubin Total 0.4 mg/dL (0.0-1.0); Blood Urea Nitrogen 17 mg/dL (9-16); Calcium 9.5 mg/dL (8.4-10.2); Carbon Dioxide 30 mmol/L (22-29); Chloride 106 mmol/L (96-108); Creatinine Clr Calc Pharmacy 72.6; Estimated Glomerular Filt Rate > 60; Glucose Random 95 mg/dL (60-115); Sodium 145 mmol/L (135-145); Total Protein 6.6 g/dL (6.5-8.0)
--- NOTE | 2023-01-04 03:26 | ED.SOB ---
HPI - SOB/Dyspnea General Chief Complaint: Dyspnea Stated Complaint: trouble breathing Time Seen by Provider: 01/04/23 03:25 Source: patient Mode of arrival: ambulatory History of Present Illness HPI Narrative: Patient with history of COPD ex-smoker no cardiac history comes here for increased shortness of breath for last few hours took nebulizing treatment at home without much response patient been more sick for last 6 months been to ER get admitted multiple times last visit was on 12/28 on tapering dose of prednisone at this time no fever no chills no chest pain or palpitation Related Data Home Medications Medication Instructions Recorded Confirmed atorvastatin 10 mg tablet 1 tab PO DAILY 01/31/21 11/30/22 doxazosin 2 mg tablet 1 tab PO DAILY 01/31/21 11/30/22 losartan 50 mg tablet 1 tab PO BID 01/31/21 11/30/22 multivitamin 1 tab PO DAILY 01/31/21 11/30/22 omeprazole 20 mg capsule,delayed 20 mg PO DAILY@0630 01/31/21 11/30/22 release amlodipine 2.5 mg tablet 2.5 mg PO DAILY 08/19/22 11/30/22 Previous Rx's Medication Instructions Recorded inhalational spacing device #10 ea 12/01/21 (Aerochamber MV spacer) ipratropium 0.5 mg-albuterol 3 mg 3 ml inhalation Q4H PRN Wheezing 09/24/22 (2.5 mg base)/3 mL nebulization #300 mL soln albuterol sulfate 90 mcg/actuation 2 puff inhalation QID PRN 11/10/22 aerosol inhaler (Proventil HFA) shortness of breath or wheezing #8.5 grams umeclidinium 62.5 mcg/actuation 1 inh inhalation BEDTIME #30 ea 11/10/22 blister powder for inhalation (Incruse Ellipta) azithromycin 250 mg tablet 250 mg PO DAILY 4 days #4 tabs 12/01/22 prednisone 20 mg tablet 20 mg PO BID #8 tabs 12/01/22 doxycycline hyclate 100 mg capsule 100 mg PO BID 7 days #14 caps 12/17/22 prednisone 20 mg tablet 60 mg (3 x 20 mg) PO DAILY 5 days 12/17/22 #15 tabs prednisone 50 mg tablet 50 mg PO DAILY 4 days #4 tabs 12/29/22 Allergies Allergy/AdvReac Type Severity Reaction Status Date / Time No Known Allergies Allergy Verified 12/28/22 23:44 Review of Systems Review of Systems: Yes all other systems are reviewed and are negative [facility] Past Medical History Medical History Asthma exacerbation Chronic lung disease GERD (gastroesophageal reflux disease) HLD (hyperlipidemia) COPD exacerbation Hypertension Hypertension Surgical History History of appendectomy Social History Social History Household Members: None Household Members Other:: daughter lives next door Housing: Apartment Do you presently have visiting nurse or other home services: No Alcohol intake: never Patient Tobacco Use Status: Former Tobacco user Quit Date: 2 months ago Tobacco use type: Cigarette Cigarette Packs Per Day: 1 Cigarettes Per Day: 20.0 Years Smoked: 50 Smoked in Last 30 Days: No e-Cigarette/Vaping Use: Never Used Second Hand Smoke Exposure: No Use of substances other than those prescribed or required for medical reasons: No Advance Directives: Yes Advance Directives on File: Yes Advance Directives Date on File: 02/26/22 service: No Current occupational status: employed Physical Exam Vital Signs: Vital Signs: Last Vital Signs Temp 98.1 F 01/04/23 00:36 Pulse 80 01/04/23 05:59 Resp 15 01/04/23 05:59 BP 137/76 01/04/23 05:59 Pulse Ox 93 01/04/23 05:59 O2 Del Method Nasal Cannula 01/04/23 05:59 O2 Flow Rate 4 01/04/23 05:59 BMI result Body Mass Index 25.1 Appearance: Alert. Oriented X3. No acute distress. Eyes: PERRLA, No Nystagmus ENT: Pharynx normal. Oral Mucosa moist Neck: Normal inspection. Neck supple. CVS: Normal heart rate and rhythm. Pulses normal. Respiratory: Moderate respiratory distress. Equal air entry bilateral, bilateral wheezing Abdomen: Soft and nontender. Bowel sounds are present, no mass palpable, no CVA tenderness Skin: Skin warm and dry. Normal skin color. Normal skin turgor. Extremities: No lower extremity edema. No calf tenderness Neuro: Oriented X 3. No motor deficit. No sensory deficit.No cerebellar signs , cranial nerves II-XII intact Medications Administered Discontinued Medications Generic Name Dose Route Start Last Admin Trade Name Chavaq PRN Reason Stop Dose Admin Albuterol Sulfate 7.5 mg 01/04/23 03:43 01/04/23 04:12 Albuterol Sulfate (0.083%) 2.5 Mg/3 Ml Vial.Neb INHALE 01/04/23 03:44 7.5 mg ONCE ONE Administration Albuterol/Ipratropium 3 ml 01/04/23 03:43 01/04/23 04:12 Albuterol/Iprat 2.5/0.5mg 3 Ml Ampul.Neb INHALE 01/04/23 03:44 3 ml ONCE ONE Administration Methylprednisolone Sodium Succinate 125 mg 01/04/23 03:43 01/04/23 03:49 Methylprednisolone Sod Succ 125 Mg/2 Ml Vial IVPUSH 01/04/23 03:44 125 mg ONCE ONE Administration Medical Decision Making Medical Decision Making [facility] Narrative: Patient with increased shortness of breath with acute bronchitis received nebulizing treatment without much response will admit patient for further management patient is saturating 92% on room air chest x-ray negative for infiltrate/pneumothorax will admit patient with supportive treatment patient has not seen cook chill 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 01/04/23 00:49 01/04/23 00:49 Labs: Lab Results 01/04/23 Range/Units 00:49 WBC 11.2 H (4.8-10.8) X10*3/uL RBC 3.88 L (4.60-5.80) X10*6/uL Hgb 13.3 L (14.0-18.0) g/dl Hct 38.5 L (42.0-52.0) % MCV 99.2 H (80.0-98.0) fL MCH 34.3 H (27.0-33.0) pg MCHC 34.5 (31.0-36.0) g/dl RDW 12.0 (11.0-16.0) % Plt Count 230 (160-400) X10*3/uL MPV 10.6 (9.4-12.4) fL Immature Gran % (Auto) 3.0 H (0.0-0.4) % Neut % (Auto) 57.3 (45-73) % Lymph % (Auto) 27.6 (20-40) % Starr % (Auto) 8.6 (2-11) % Eos % (Auto) 3.0 (0-4) % Baso % (Auto) 0.5 (0-2) % Lymph # (Auto) 3.1 (1.2-4.9) X10*3/uL Starr # (Auto) 1.0 (0.1-1.2) X10*3/uL Eos # (Auto) 0.3 (0.0-0.4) X10*3/uL Baso # (Auto) 0.1 (0.0-0.2) X10*3/uL Abs Immat Gran (auto) 0.34 H (0.00-0.03) X10*3/uL Absolute Neuts (auto) 6.4 (2.0-8.3) x10*3/uL Absolute Nucleated RBC 0.000 (0.0-0.012) X10*3/uL Nucleated RBC % (auto) 0.0 (0.0-0.2) /100WBC Sodium 145 (135-145) mmol/L Potassium 4.0 (3.3-5.1) mmol/L Chloride 106 (96-108) mmol/L Carbon Dioxide 30 H (22-29) mmol/L Anion Gap 13 (12-20) BUN 17 H (9-16) mg/dL Creatinine 0.96 (0.5-1.4) mg/dL Estim Creat Clear Calc 72.6 Estimated GFR > 60 Random Glucose 95 (60-115) mg/dL Calcium 9.5 (8.4-10.2) mg/dL Total Bilirubin 0.4 (0.0-1.0) mg/dL AST 17 (5-37) U/L ALT 31 (0-40) U/L Alkaline Phosphatase 46 (39-117) U/L B-Natriuretic Peptide 26 (<100) pg/mL Total Protein 6.6 (6.5-8.0) g/dL Albumin 4.2 (3.5-5.0) g/dL Independent Interpretation I performed an independent interpretation of an: EKG and Plain X-Ray Interpretation: Normal sinus rhythm heart rate 90 beats per minute normal interval normal axis no acute ST-T no acute ischemia Discharge Plan Discharge Clinical Impression: Acute bronchitis, Chronic lung disease Patient Disposition: Admitted As Inpatient
[2023-01-04] MEDS: methylPREDNISolone Sod Succ 125 MG/2 ML VIAL IVPUSH (03:49)
[2023-01-04 04:10] LABS: B Type Natriuretic Peptide 26 pg/mL (<100)
[2023-01-04] MEDS: Albuterol/Iprat 2.5/0.5MG 3 ML AMPUL.NEB INHALE (04:12)
[2023-01-04] MEDS: Albuterol Sulfate (0.083%) 2.5 MG/3 ML VIAL.NEB 7.5 MG INHALE (04:12)
[2023-01-04 07:12] LABS: COVID-19 Test Negative (Negative); IDNOW Serial# 55D5AD1C
--- NOTE | 2023-01-04 08:50 | PHA.MEDREC ---
Pharmacy Consult ? Medication Reconciliation Pharmacy has completed the medication reconciliation.Spoke to pateint at bedside, states he no longer uses his Incruse inhaler or the Duoneb, however he did state that the Duoneb did work better than just the albuterol for his nebulizer. Patient with picture of bottles of medications.
--- NOTE | 2023-01-04 09:14 | PC.NURSE ---
patient resting in bed, respirations equal and unlabored. patient denies sob and cp.
== END 2023-01-04 12:05 | disposition home or self-care (01) ==
PROVIDERS: Emergency Provider Internal Medicine
DX: J44.1 Chronic obstructive pulmonary disease with (acute) exacerbation (principal); R09.02 Hypoxemia; J20.9 Acute bronchitis, unspecified; R06.02 Shortness of breath; R94.31 Abnormal electrocardiogram [ECG] [EKG]; Z20.822 Contact with and (suspected) exposure to COVID-19; Z20.828 Contact with and (suspected) exposure to other viral communicable diseases; Z87.891 Personal history of nicotine dependence; Z79.899 Other long term (current) drug therapy
CPT/HCPCS: 36415; 71045; 80053; 83880; 85025; 87635; 93005; 94640; 99284; 99285; J2930

== ENCOUNTER 2023-01-04 12:56 | Outpatient (AMB) | payer MEDICARE, SELFPAY ==
--- NOTE | 2023-01-04 12:56 | MHC.OFFVIS ---
Intake Vital Signs 01/04/23 12:58 Height 5 ft 9 in Weight 171 lb 15.369 oz BMI 25.4 BP 168/82 H Blood Pressure Location Lt brachial Position Sitting Pulse 122 H Pulse Source Doppler Pulse Oximetry (%) 92 Oxygen Delivery Method Room Air Intake Visit Reasons: COPD Allergies No Known Allergies Allergy (Verified 01/04/23 13:03) HPI COPD HPI Details 67-year-old gentleman, recent 50 pack-year smoker, quit 09/2022, with multiple recent admissions for COPD exacerbations referred for management of his underlying pulmonary concern id patient states that he has been using albuterol MDI and nebs several times a day with suboptimal control of his symptoms. He was briefly on Incruse, however it was not continued. He denies recent pulmonary function testing. He denies an acute exacerbation at this time. Patient denies family history of lung disease. [facility] Medical History Asthma exacerbation Chronic lung disease GERD (gastroesophageal reflux disease) HLD (hyperlipidemia) COPD exacerbation Hypertension Hypertension Surgical History History of appendectomy Social History Household Members: None Household Members Other:: daughter lives next door Housing: Apartment Do you presently have visiting nurse or other home services: No Alcohol intake: never Patient Tobacco Use Status: Former Tobacco user Quit Date: 2 months ago Tobacco use type: Cigarette Cigarette Packs Per Day: 1 Cigarettes Per Day: 20.0 Years Smoked: 50 e-Cigarette/Vaping Use: Never Used Second Hand Smoke Exposure: No Advance Directives Date on File: 02/26/22 service: No Current occupational status: employed Review of Systems Const Denies daytime sleepiness, Denies excessive sweating, Denies fatigue, Denies fever(s), Denies lethargy, Denies malaise, Denies night sweats, Denies snoring and Denies weight loss Eyes Denies blurry vision and Denies itchy eyes ENT Denies nasal congestion, Denies post nasal drip, Denies sinus pain, Denies sinus pressure and Denies other ( Thrush) Card Denies chest pain, Denies pedal edema, Denies dyspnea, Denies orthopnea and Denies paroxysmal nocturnal dyspnea Resp Denies cough, Denies hemoptysis, Denies excessive phlegm production, Denies dyspnea, Denies snoring and Denies wheezing GI Denies abdominal pain and Denies heartburn Musc Denies myalgias, Denies arthralgias and Denies joint swelling Skin/Breast Denies rash Neuro Denies memory loss and Denies seizure-like activity Psych Denies abnormal sleep pattern, Denies anxiety and Denies memory loss Endo Denies excessive sweating, Denies fatigue and Denies heat intolerance Mikey/Lymph Denies easy bruising Aller/Immun Denies itchy eyes, Denies seasonal rhinorrhea and Denies wheezing Physical Exam Vital Signs: Last Vital Signs Pulse 122 H 01/04/23 12:58 BP 168/82 H 01/04/23 12:58 Pulse Ox 92 01/04/23 12:58 Oxygen Delivery Method Room Air 01/04/23 12:58 BMI result Body Mass Index 25.4 Const General: no acute distress and alert Nutritional Appearance: not obese Orientation/consciousness: Other orientation findings ( oriented) HEENT Head: Yes atraumatic Eyes General: appearance normal, both eyes and all related structures Sclerae: sclerae normal EOM: EOMs intact bilaterally Neck Neck: Yes supple Lymphatic: no lymphadenopathy noted Resp Effort & Inspection: normal respiratory effort and no use of accessory muscles Auscultation: clear to auscultation bilaterally Cardio Rate: regular rate Rhythm: regular rhythm Heart sounds: no gallops, no murmurs and no rubs Skin General skin exam: other ( warm) Extrem General: No clubbing, No cyanosis and No edema Office Procedures Nebulizer Treatment Nebulizer Treatment 41470-Ekikigxmy/MDI RX initial, or Nebulizer Subsequent Treatment Office Meds ipratropium 0.5 mg-albuterol 3 mg (2.5 mg base)/3 mL nebulization soln Performing Provider: Rupert Diaz MD Performing Location: [facility] [place] [facility] Administered by: Pearl Fan LPN on 01/04/23 13:51 Dose Route Admin Location Dispensed Lot Number Expiration Date NDC Quarantine Officer 3 mL inhalation 3 mL [id number] 04/25/24 8220-2679-38 [employer] K[employer]ST[employer] Assessment & Plan Assessment & Plan (1) Chronic lung disease: Code(s): J98.4 - Other disorders of lung Plan: Likely underlying COPD of unclear severity. Will start on empiric Anoro and obtain full PFT. Orders: Orders PFT pulmonary function test Today J44.1 - Chronic obstructive pulmonary disease with (acute) exacerbation AMB Nebulizer Treatment Today J44.1 - Chronic obstructive pulmonary disease with (acute) exacerbation Medications: New Anoro Ellipta 62.5-25 mcg/actuation (umeclidinium-vilanterol) 1 inh inhalation DAILY 1 ea 6RF 30 days NS ipratropium bromide 2.5 mL inhalation Q6H PRN 300 mL 6RF shortness of breath or wheezing 30 days Coding Level of Care Code New Pt Level 3 (56987) Diagnoses Chronic lung disease J98.4 CPT Codes Nebulizer Treatment - Nebulizer Treatment, initial or subsequent: 60125-Rwarupyes/MDI RX initial, or Nebulizer Subsequent Treatment ([id number])
[2023-01-04 12:58] VITALS: BP 168/82; PULSE 122; O2SAT 92; BMI 25.4
== END 2023-01-04 13:48 | disposition home or self-care (01) ==
PROVIDERS: Visit Provider Internal Medicine Pulmonary Disease
DX: J98.4 Other disorders of lung (principal); J44.1 Chronic obstructive pulmonary disease with (acute) exacerbation
CPT/HCPCS: 99203

== ENCOUNTER 2023-01-25 13:29 | Outpatient (REF) | payer MEDICARE, SELFPAY ==
--- NOTE | 2023-01-25 14:45 | PFT_ITS ---
INDICATION: Dyspnea. SPIROMETRY: FEV1 to FVC 37% with an FEV1 of 1.44 L, which is 45% predicted and FVC of 3.9 L, which is 91% predicted. No significant response to bronchodilators noted. Maximum voluntary ventilation 45% predicted. LUNG VOLUMES: Total lung capacity 98% predicted with a residual volume 109% predicted. DIFFUSION CAPACITY: DLCO of 60% predicted. COMPARISONS: None. INTERPRETATION: There is an obstructive ventilatory defect consistent with severe COPD. No significant response to bronchodilators noted. Significant small airway disease. There is also a severe decrease in the maximum voluntary ventilation, secondary to deconditioning. Lung volumes are within normal limits. The patient also has some mild to moderate diffusion impairment. Clinical correlation warranted. MD SIL Barnard/MODL / [id number]
== END 2023-01-25 13:30 | disposition home or self-care (01) ==
LOC: HO.RESP 13:29
PROVIDERS: Visit Provider Internal Medicine Pulmonary Disease
DX: J44.1 Chronic obstructive pulmonary disease with (acute) exacerbation (principal)
CPT/HCPCS: 94010; 94727; 94729; 99212

== ENCOUNTER 2023-01-25 14:09 | Outpatient (AMB) | payer MEDICARE, SELFPAY ==
[2023-01-25 14:30] VITALS: BP 138/72; PULSE 114; O2SAT 94; BMI 26.5
--- NOTE | 2023-01-25 14:30 | A.OFFVIS_ITS ---
Intake Vital Signs 01/25/23 14:30 Height 5 ft 9 in Weight 179 lb 10.828 oz BMI 26.5 BP 138/72 Blood Pressure Location Rt brachial Position Sitting Pulse 114 H Pulse Source Doppler Pulse Oximetry (%) 94 Oxygen Delivery Method Room Air Intake Visit Reasons: Same day PFT Allergies No Known Allergies Allergy (Verified 01/25/23 14:32) HPI Same day PFT HPI Details 67-year-old gentleman, recent 50 pack-ye ar smoker, quit 09/2022, now followed for severe COPD. At the last office visit patient was started on Anoro, ipratropium bromide, and albuterol MDI. With significant improvement in his symptoms. He denies any recent exacerbations. PFSH Medical History Asthma exacerbation Chronic lung disease GERD (gastroesophageal reflux disease) HLD (hyperlipidemia) COPD exacerbation Hypertension Hypertension Surgical History History of appendectomy Social History Household Members: None Household Members Other:: daughter lives next door Housing: Apartment Do you presently have visiting nurse or other home services: No Alcohol intake: never Patient Tobacco Use Status: Former Tobacco user Quit Date: 2 months ago Tobacco use type: Cigarette Cigarette Packs Per Day: 1 Cigarettes Per Day: 20.0 Years Smoked: 50 e-Cigarette/Vaping Use: Never Used Second Hand Smoke Exposure: No Advance Directives Date on File: 02/26/22 service: No Current occupational status: employed Review of Systems Const Denies daytime sleepiness, Denies excessive sweating, Denies fatigue, Denies fever(s), Denies lethargy, Denies malaise, Denies night sweats, Denies snoring and Denies weight loss Eyes Denies blurry vision and Denies itchy eyes ENT Denies nasal congestion, Denies post nasal drip, Denies sinus pain, Denies sinus pressure and Denies other ( Thrush) Card Denies chest pain, Denies pedal edema, Denies dyspnea, Denies orthopnea and Denies paroxysmal nocturnal dyspnea Resp Denies cough, Denies hemoptysis, Denies excessive phlegm production, Denies dyspnea, Denies snoring and Denies wheezing GI Denies abdominal pain and Denies heartburn Musc Denies myalgias, Denies arthralgias and Denies joint swelling Skin/Breast Denies rash Neuro Denies memory loss and Denies seizure-like activity Psych Denies abnormal sleep pattern, Denies anxiety and Denies memory loss Endo Denies excessive sweating, Denies fatigue and Denies heat intolerance Mikey/Lymph Denies easy bruising Aller/Immun Denies itchy eyes, Denies seasonal rhinorrhea and Denies wheezing Physical Exam Vital Signs: Last Vital Signs Pulse 114 H 01/25/23 14:30 BP 138/72 01/25/23 14:30 Pulse Ox 94 01/25/23 14:30 Oxygen Delivery Method Room Air 01/25/23 14:30 BMI result Body Mass Index 26.5 Const General: no acute distress and alert Nutritional Appearance: not obese Orientation/consciousness: Other orientation findings ( oriented) HEENT Head: Yes atraumatic Eyes General: appearance normal, both eyes and all related structures Sclerae: sclerae normal EOM: EOMs intact bilaterally Neck Neck: Yes supple Lymphatic: no lymphadenopathy noted Resp Effort & Inspection: normal respiratory effort and no use of accessory muscles Auscultation: clear to auscultation bilaterally Cardio Rate: regular rate Rhythm: regular rhythm Heart sounds: no gallops, no murmurs and no rubs Skin General skin exam: other ( warm) Extrem General: No clubbing, No cyanosis and No edema Assessment & Plan Assessment & Plan (1) Severe chronic obstructive pulmonary disease: Code(s): J44.9 - Chronic obstructive pulmonary disease, unspecified Plan: Well controlled on current regimen of Anoro, ipratropium, albuterol MDI/nebs. Continue current regimen. (2) Screening for lung cancer: Code(s): Z12.2 - Encounter for screening for malignant neoplasm of respiratory organs Plan: Will order CT lung cancer screening. Orders: Orders CT lung screening Today Z12.2 - Encounter for screening for malignant neoplasm of respiratory organs Coding Level of Care Code Est Pt Level 4 (47760) Diagnoses Severe chronic obstructive pulmonary disease J44.9 Screening for lung cancer Z12.2
== END 2023-01-25 14:44 | disposition home or self-care (01) ==
PROVIDERS: Visit Provider Internal Medicine Pulmonary Disease
DX: R06.09 Other forms of dyspnea (principal)
CPT/HCPCS: 94060; 94727; 94729; 99214

== ENCOUNTER 2023-02-20 22:12 | Emergency (ER) | payer MEDICARE, SELFPAY ==
--- NOTE | 2023-02-20 | ECG_ITS ---
Test Reason : DIFF BREATHING Blood Pressure : / mmHG Vent. Rate : 115 BPM Atrial Rate : 115 BPM P-R Int : 130 ms QRS Dur : 096 ms QT Int : 330 ms P-R-T Axes : 083 085 055 degrees QTc Int : 456 ms Sinus tachycardia Intra-ventricular conduction delay Possible Left atrial enlargement Borderline ECG When compared with ECG of 04-JAN-2023 01:22, Heart rate has increased Referred By: Pranav Ojeda Electronically Signed By:MONICA CANTU MD
--- NOTE | ~2023-02-20 | XR_ITS ---
EXAMINATION: XR CHEST CLINICAL INFORMATION: Difficulty breathing COMPARISON: Chest 01/04/2023. TECHNIQUE: Frontal view of the chest was obtained. FINDINGS: The lungs are well-expanded and clear. There is platelike atelectasis in the lingula. Heart size and progress clarities normal. No gross bony abnormality seen. XR/XR chest 1V IMPRESSION: Platelike atelectasis in the lingula. Otherwise unremarkable chest.
[2023-02-20 22:14] VITALS: BP 153/85; PULSE 122; RESP 22; TEMP 36.8; O2SAT 91; BMI 25.8
[2023-02-20 22:30] LABS: Basophils Absolute Auto 0.1 X10*3/uL (0.0-0.2); Basophils Percent Auto 0.5 % (0-2); Eosinophils Absolute Auto 0.5 X10*3/uL (0.0-0.4); Eosinophils Percent Auto 4.1 % (0-4); Hematocrit 40.2 % (42.0-52.0); Hemoglobin 13.4 g/dl (14.0-18.0); Imm Gran Abs Auto 0.09 X10*3/uL (0.00-0.03); Imm Gran Pct Auto 0.8 % (0.0-0.4); Lymphocytes Absolute Auto 2.6 X10*3/uL (1.2-4.9); Lymphocytes Percent Auto 23.7 % (20-40); MANUAL DIFF FLAG NO; Mean Corpuscular HGB Conc 33.3 g/dl (31.0-36.0); Mean Corpuscular Hemoglobin 33.9 pg (27.0-33.0); Mean Corpuscular Volume 101.8 fL (80.0-98.0); Monocytes Absolute Auto 1.1 X10*3/uL (0.1-1.2); Monocytes Percent Auto 9.8 % (2-11); Neutrophils Absolute Auto 6.7 x10*3/uL (2.0-8.3); Neutrophils Percent Auto 61.1 % (45-73); Platelet Count 289 X10*3/uL (160-400); Red Blood Count 3.95 X10*6/uL (4.60-5.80); Red Cell Distribution Width 12.3 % (11.0-16.0)
--- NOTE | 2023-02-20 22:40 | ED.SOB ---
HPI - SOB/Dyspnea General Chief Complaint: Dyspnea Stated Complaint: difficuctly breathing hx of copd Time Seen by Provider: 02/20/23 22:20 Source: patient Mode of arrival: ambulatory Limitations: no limitations History of Present Illness HPI Narrative: Patient with severe COPD recent 50 pack year smoker quit 10/16 , hypertension, asthma comes here for increased shortness of breath started last night saturating 89% at home patient is on oxygen 1-2 L as needed does have frequent ED visits and admissions for COPD exacerbation. No chest pain no leg swelling no history of CHF no fever no chills no upper respiratory symptoms Related Data Home Medications Medication Instructions Recorded Confirmed atorvastatin 10 mg tablet 1 tab PO DAILY 01/31/21 01/04/23 doxazosin 2 mg tablet 1 tab PO DAILY 01/31/21 01/04/23 losartan 50 mg tablet 1 tab PO BID 01/31/21 01/04/23 multivitamin 1 tab PO DAILY 01/31/21 01/04/23 omeprazole 20 mg capsule,delayed 20 mg PO DAILY@0630 01/31/21 01/04/23 release amlodipine 2.5 mg tablet 2.5 mg PO DAILY 08/19/22 01/04/23 albuterol sulfate 2.5 mg/3 mL 2.5 mg inhalation TID PRN Wheezing 01/04/23 01/04/23 (0.083 %) solution for nebulization Previous Rx's Medication Instructions Recorded inhalational spacing device #10 ea 12/01/21 (Aerochamber MV spacer) albuterol sulfate 90 mcg/actuation 2 puff inhalation QID PRN 11/10/22 aerosol inhaler (Proventil HFA) shortness of breath or wheezing #8.5 grams Anoro Ellipta 62.5 mcg-25 1 inh inhalation DAILY 30 days #1 01/04/23 mcg/actuation powder for ea inhalation (umeclidinium-vilanterol) ipratropium bromide 0.02 % 2.5 ml inhalation Q6H PRN 01/04/23 solution for inhalation shortness of breath or wheezing 30 days #300 mL prednisone 20 mg tablet 60 mg (3 x 20 mg) PO DAILY Asthma 01/04/23 5 days #15 tabs prednisone 20 mg tablet 40 mg (2 x 20 mg) PO DAILY #10 tabs 02/21/23 Allergies Allergy/AdvReac Type Severity Reaction Status Date / Time No Known Allergies Allergy Verified 01/25/23 14:32 Review of Systems Review of Systems: Yes all other systems are reviewed and are negative [facility] Past Medical History Medical History Asthma exacerbation Chronic lung disease GERD (gastroesophageal reflux disease) HLD (hyperlipidemia) COPD exacerbation Hypertension Hypertension Surgical History History of appendectomy Social History Social History Household Members: None Household Members Other:: daughter lives next door Housing: Apartment Do you presently have visiting nurse or other home services: No Alcohol intake: current Alcohol intake frequency: a few times a month Alcohol type: beer Patient Tobacco Use Status: Former Tobacco user Quit Date: 2 months ago Tobacco use type: Cigarette Cigarette Packs Per Day: 1 Cigarettes Per Day: 20.0 Years Smoked: 50 Smoked in Last 30 Days: No e-Cigarette/Vaping Use: Never Used Second Hand Smoke Exposure: No Use of substances other than those prescribed or required for medical reasons: No Advance Directives: Yes Advance Directives on File: Yes Advance Directives Date on File: 02/26/22 service: No Current occupational status: employed Physical Exam Vital Signs: Vital Signs: Last Vital Signs Temp 98.1 F 02/21/23 01:08 Pulse 85 02/21/23 01:14 Resp 16 02/21/23 01:14 BP 158/80 H 02/21/23 01:08 Pulse Ox 92 02/21/23 01:08 O2 Del Method Nasal Cannula 02/21/23 01:08 O2 Flow Rate 1.5 02/21/23 01:08 BMI result Body Mass Index 25.8 Appearance: Alert. Oriented X3. No acute distress. Eyes: PERRLA, No Nystagmus ENT: Pharynx normal. Oral Mucosa moist Neck: Normal inspection. Neck supple. CVS: Normal heart rate and rhythm. Pulses normal. Respiratory: Moderate respiratory distress. Equal air entry bilateral, bilateral wheezing no crackles Abdomen: Soft and nontender. Bowel sounds are present, no mass palpable, no CVA tenderness Skin: Skin warm and dry. Normal skin color. Normal skin turgor. Extremities: No lower extremity edema. No calf tenderness Neuro: Oriented X 3. No motor deficit. No sensory deficit.No cerebellar signs , cranial nerves II-XII intact Medications Administered Discontinued Medications Generic Name Dose Route Start Last Admin Trade Name Bradford PRN Reason Stop Dose Admin Albuterol Sulfate 5 mg/ 7.5 mg 02/20/23 23:06 02/20/23 23:09 Albuterol Sulfate 2.5 mg INHALE 02/20/23 23:07 7.5 mg ONCE ONE Administration Albuterol Sulfate 5 mg/ 0 mg 02/21/23 01:11 02/21/23 01:14 Albuterol/Ipratropium 3 ml INHALE 02/21/23 01:12 2.5 each ONCE ONE Administration Magnesium Sulfate 2 gm in 50 mls @ 150 mls/hr 02/20/23 22:50 02/21/23 00:09 Magnesium Sulfate/H2o IV 02/20/23 23:09 Infused ONCE ONE Infusion Methylprednisolone Sodium Succinate 125 mg 02/20/23 22:50 02/20/23 23:44 Methylprednisolone Sod Succ 125 Mg/2 Ml Vial IVPUSH 02/20/23 22:51 125 mg ONCE ONE Administration Medical Decision Making Medical Decision Making [facility] Narrative: Patient with history of chronic lung disease came for increased shortness of breath improved after nebulized treatment and steroids discharge patient home on steroids advised to continue nebulized treatment every 6 hours as needed patient advised to increase oxygen at 2 L at nighttime in the ER patient's saturation was 92% on 2 L Differential Diagnosis Differential Diagnoses: The differential diagnosis associated with the presentation includes COPD exacerbation/pneumonia/pneumothorax/CHF Lab Data [facility] Lab Attestation statement: I reviewed the patient's lab results. 02/20/23 22:25 02/20/23 22:25 Labs: Lab Results 02/20/23 02/20/23 Range/Units 22:25 22:28 WBC 11.0 H (4.8-10.8) X10*3/uL RBC 3.95 L (4.60-5.80) X10*6/uL Hgb 13.4 L (14.0-18.0) g/dl Hct 40.2 L (42.0-52.0) % MCV 101.8 H (80.0-98.0) fL MCH 33.9 H (27.0-33.0) pg MCHC 33.3 (31.0-36.0) g/dl RDW 12.3 (11.0-16.0) % Plt Count 289 D (160-400) X10*3/uL MPV 10.0 (9.4-12.4) fL Immature Gran % (Auto) 0.8 H (0.0-0.4) % Neut % (Auto) 61.1 (45-73) % Lymph % (Auto) 23.7 (20-40) % [place] % (Auto) 9.8 (2-11) % Eos % (Auto) 4.1 H (0-4) % Baso % (Auto) 0.5 (0-2) % Lymph # (Auto) 2.6 (1.2-4.9) X10*3/uL [place] # (Auto) 1.1 (0.1-1.2) X10*3/uL Eos # (Auto) 0.5 H (0.0-0.4) X10*3/uL Baso # (Auto) 0.1 (0.0-0.2) X10*3/uL Abs Immat Gran (auto) 0.09 H (0.00-0.03) X10*3/uL Absolute Neuts (auto) 6.7 (2.0-8.3) x10*3/uL Absolute Nucleated RBC 0.000 (0.0-0.012) X10*3/uL Nucleated RBC % (auto) 0.0 (0.0-0.2) /100WBC Sodium 144 (135-145) mmol/L Potassium 3.8 (3.3-5.1) mmol/L Chloride 103 (96-108) mmol/L Carbon Dioxide 27 (22-29) mmol/L Anion Gap 18 (12-20) BUN 15 (9-16) mg/dL Creatinine 1.07 (0.5-1.4) mg/dL Estim Creat Clear Calc 65.1 Estimated GFR > 60 Random Glucose 115 (60-115) mg/dL Calcium 9.5 (8.4-10.2) mg/dL Troponin I High Sens 2.7 D (<3.5-35.0) ng/L Influenza Type A (PCR) NEGATIVE (Negative) Influenza Type B (PCR) NEGATIVE (Negative) RSV RNA Qual (PCR) NEGATIVE (Negative) SARS-CoV-2 RNA (RT-PCR) NEGATIVE (Negative) Independent Interpretation I performed an independent interpretation of an: EKG Interpretation: Sinus tachycardia heart 115 beats per minute normal axis no acute ST T wave changes no acute ischemia Radiology Impression Discussion of test interpretation with radiology: I have reviewed the radiologist's reading. Radiologist Impression: XR/XR chest 1V IMPRESSION: Platelike atelectasis in the lingula. Otherwise unremarkable chest. Discharge Plan Discharge Clinical Impression: Acute exacerbation of chronic obstructive pulmonary disease (COPD) Patient Disposition: Home, Self-Care Instructions: COPD (Chronic Obstructive Pulmonary Disease) (ED) Additional Instructions: Continue nebulizing treatment every 4-6 hours at home Oxygen as advised Prednisone as prescribed Report to the ER if worsening of the shortness of breath/requiring high amount (>3 litre) of oxygen Prescriptions: New prednisone 20 mg tablet 40 mg PO DAILY Qty: 10 0RF No Action multivitamin Tablet 1 tab PO DAILY losartan 50 mg tablet 1 tab PO BID atorvastatin 10 mg tablet 1 tab PO DAILY omeprazole 20 mg Capsule,Delayed Release(Dr/Ec) 20 mg PO DAILY@0630 doxazosin 2 mg tablet 1 tab PO DAILY (DME) Aerochamber MV Spacer See Rx Instructions .Route Qty: 10 0RF Rx Instructions: As directed amlodipine 2.5 mg tablet 2.5 mg PO DAILY albuterol sulfate 2.5 mg /3 mL (0.083 %) solution for nebulization 2.5 mg inhalation TID PRN (Reason: Wheezing) prednisone 20 mg tablet 60 mg PO DAILY 5 Days Qty: 15 0RF albuterol sulfate [Proventil HFA] 90 mcg/actuation HFA aerosol inhaler 2 puff inhalation QID PRN (Reason: shortness of breath or wheezing) Qty: 8.5 2RF Anoro Ellipta 62.5-25 mcg/actuation blister with device 1 inh inhalation DAILY 30 Days Qty: 1 6RF ipratropium bromide 0.02 % solution 2.5 ml inhalation Q6H PRN (Reason: shortness of breath or wheezing) 30 Days Qty: 300 6RF
[2023-02-20 22:42] LABS: Anion Gap 18 (12-20); Blood Urea Nitrogen 15 mg/dL (9-16); Calcium 9.5 mg/dL (8.4-10.2); Carbon Dioxide 27 mmol/L (22-29); Chloride 103 mmol/L (96-108); Creatinine Clr Calc Pharmacy 65.1; Estimated Glomerular Filt Rate > 60; Glucose Random 115 mg/dL (60-115); Potassium 3.8 mmol/L (3.3-5.1); Sodium 144 mmol/L (135-145)
[2023-02-20 22:50] LABS: Troponin-I High Sensitivity 2.7 ng/L (<3.5-35.0)
[2023-02-20 23:08] LABS: Influenza A PCR NEGATIVE (Negative); Influenza B PCR NEGATIVE (Negative); Resp Syncy Virus RNA Qual PCR NEGATIVE (Negative); SARS COV2 PCR INHOUSE NEGATIVE (Negative)
[2023-02-20] MEDS: Albuterol Sulfate 5 MG, Albuterol Sulfate (0.083%) 2.5 MG 7.5 MG INHALE (23:09)
[2023-02-20 23:11] VITALS: PULSE 92; RESP 16; O2SAT 94
[2023-02-20] MEDS: Magnesium Sulfate/H2O 2 GM/50 ML PIGGYBACK IV (23:43)
[2023-02-20] MEDS: methylPREDNISolone Sod Succ 125 MG/2 ML VIAL IVPUSH (23:44)
[2023-02-20 23:45] VITALS: BP 131/71; PULSE 102; RESP 19; O2SAT 96
[2023-02-21 00:14] VITALS: BP 149/76; PULSE 93; RESP 20; O2SAT 92
[2023-02-21 01:08] VITALS: BP 158/80; PULSE 85; RESP 16; TEMP 36.7; O2SAT 92
[2023-02-21 01:14] VITALS: PULSE 85; RESP 16; O2SAT 91
[2023-02-21] MEDS: Albuterol Sulfate 5 MG, Albuterol/Iprat 2.5/0.5MG 3 ML 3 ML INHALE (01:14)
--- NOTE | 2023-02-21 01:27 | PC.NURSE ---
pt resting comfortably, respiratory finishing 2nd treatment at this time.
== END 2023-02-21 02:10 | disposition home or self-care (01) ==
PROVIDERS: Emergency Provider Internal Medicine; PCP Internal Medicine
DX: J44.1 Chronic obstructive pulmonary disease with (acute) exacerbation (principal); Z99.81 Dependence on supplemental oxygen; I10 Essential (primary) hypertension; Z87.891 Personal history of nicotine dependence; Z20.822 Contact with and (suspected) exposure to COVID-19; Z20.828 Contact with and (suspected) exposure to other viral communicable diseases
CPT/HCPCS: 0241U; 36415; 71045; 80048; 84484; 85025; 93005; 94640; 96365; 96375; 99284; 99285; J2930; J3475

== ENCOUNTER 2023-03-08 11:00 | Outpatient (REF) | payer MEDICARE, SELFPAY ==
--- NOTE | ~2023-03-08 | CT_ITS ---
EXAMINATION: CT CHEST SCREENING CLINICAL INFORMATION: Baseline screening in 50 pack-year smoking history who quit 2 months ago COMPARISON: None available. TECHNIQUE: Multidetector volumetric CT imaging of the chest is performed without contrast using low dose technique. Additional 2D coronal and sagittal reformatted images and axial 3D maximum intensity projection (MIP) images are generated on the CT workstation. This CT examination was performed using dose optimization techniques as appropriate, variously including the following: *Automated exposure control *Adjustment of mA and/or kV according to patient size (this includes techniques or standardized protocols for targeted exams where dose is matched to indication/reason for exam; i.e. extremities or head) *Use of iterative reconstruction technique DLP: 60 mGy-cm FINDINGS: EMPLOYMENT CLERK: Unremarkable. LUNGS: Trachea and bronchi are patent. Lungs are hyper aerated with mild centrilobular and paraseptal emphysema. Scattered atelectasis. No consolidation/air bronchograms or groundglass opacities. No suspicious lung nodules. MEDIASTINUM: Unremarkable thyroid. No pathologic lymphadenopathy. Nonenlarged heart. No pericardial effusion. Atherosclerotic calcifications nonaneurysmal aorta. Nonenlarged CORONARY ARTERY CALCIFICATION: Moderate. PLEURA: There is no pleural effusion. No pleural mass or thickening. AXILLA: No lymphadenopathy. UPPER ABDOMEN: Unremarkable OSSEOUS STRUCTURES: No suspicious osseous lesions. CT/CT lung screening IMPRESSION: Mild emphysematous changes. No pulmonary nodules. ASSESSMENT: Lung-RADS category 1: Negative RECOMMENDATION: Routine annual low-dose CT screening in 12 months.
== END 2023-03-08 11:01 | disposition home or self-care (01) ==
LOC: HO.CT 11:00
PROVIDERS: PCP Internal Medicine; Visit Provider Internal Medicine Pulmonary Disease
DX: Z12.2 Encounter for screening for malignant neoplasm of respiratory organs (principal); Z87.891 Personal history of nicotine dependence
CPT/HCPCS: 71271

== ENCOUNTER 2023-03-11 02:38 | Inpatient (IN) | payer MEDICARE, SELFPAY ==
[2023-03-11] VITALS (14 sets, daily range): BP systolic 131–172; BP diastolic 66–98; PULSE 89–126; RESP 15–24; TEMP 36.3–37; O2SAT 88–100; BMI 25.1
--- NOTE | 2023-03-11 | ECG_ITS ---
Test Reason : SOB Blood Pressure : / mmHG Vent. Rate : 113 BPM Atrial Rate : 113 BPM P-R Int : 140 ms QRS Dur : 098 ms QT Int : 346 ms P-R-T Axes : 085 086 067 degrees QTc Int : 474 ms Sinus tachycardia Intra-ventricular conduction delay Right atrial enlargement Abnormal ECG When compared with ECG of 20-FEB-2023 22:22, No significant change was found Referred By: Jacinta Forrester Electronically Signed By:MONICA CANTU MD
--- NOTE | ~2023-03-11 | XR_ITS ---
EXAMINATION: XR CHEST CLINICAL INFORMATION: Shortness of breath. COMPARISON: None available. TECHNIQUE: Frontal view of the chest was obtained. FINDINGS: No significant abnormality is noted involving the heart, lungs, mediastinum, bony thorax or soft tissues. XR/XR chest 1V IMPRESSION: No active cardiopulmonary disease.
--- NOTE | 2023-03-11 02:48 | ED_ITS ---
HPI - SOB/Dyspnea General Chief Complaint: Dyspnea Stated Complaint: sob Time Seen by Provider: 03/11/23 02:47 Source: patient Mode of arrival: EMS History of Present Illness HPI Narrative: 67-year-old male is brought in by EMS for worsening shortness of breath since midnight, no relief from inhalers and patient wears 1 L of oxygen at baseline. He was noted to be 80% at home with audible wheezing in all godfrey, patient received DuoNeb and Solu-Medrol by EMS en route Related Data Home Medications Medication Instructions Recorded Confirmed atorvastatin 10 mg tablet 1 tab PO DAILY 01/31/21 01/04/23 doxazosin 2 mg tablet 1 tab PO DAILY 01/31/21 01/04/23 losartan 50 mg tablet 1 tab PO BID 01/31/21 01/04/23 multivitamin 1 tab PO DAILY 01/31/21 01/04/23 omeprazole 20 mg capsule,delayed 20 mg PO DAILY@0630 01/31/21 03/11/23 release amlodipine 2.5 mg tablet 2.5 mg PO DAILY 08/19/22 01/04/23 albuterol sulfate 2.5 mg/3 mL 2.5 mg inhalation TID PRN Wheezing 01/04/23 01/04/23 (0.083 %) solution for nebulization albuterol sulfate 2.5 mg/3 mL 1 inhalation TID 03/11/23 (0.083 %) solution for nebulization albuterol sulfate 90 mcg/actuation 2 puff inhalation QID PRN wheezing 03/11/23 03/11/23 aerosol inhaler amlodipine 2.5 mg tablet 2.5 mg PO DAILY 03/11/23 03/11/23 atorvastatin 10 mg tablet 10 mg PO DAILY 03/11/23 03/11/23 doxazosin 2 mg tablet 2 mg PO BEDTIME 03/11/23 03/11/23 ipratropium bromide 0.02 % 1 inhalation Q6H PRN wheezing 03/11/23 solution for inhalation losartan 50 mg tablet 50 mg PO BID 03/11/23 03/11/23 losartan 50 mg tablet 50 mg PO BID 03/11/23 03/11/23 umeclidinium 62.5 mcg-vilanterol 1 ea inhalation DAILY 03/11/23 03/11/23 25 mcg/actuation powdr for inhalation (Anoro Ellipta) Previous Rx's Medication Instructions Recorded inhalational spacing device #10 ea 12/01/21 (Aerochamber MV spacer) albuterol sulfate 90 mcg/actuation 2 puff inhalation QID PRN 11/10/22 aerosol inhaler (Proventil HFA) shortness of breath or wheezing #8.5 grams Anoro Ellipta 62.5 mcg-25 1 inh inhalation DAILY 30 days #1 01/04/23 mcg/actuation powder for ea inhalation (umeclidinium-vilanterol) ipratropium bromide 0.02 % 2.5 ml inhalation Q6H PRN 01/04/23 solution for inhalation shortness of breath or wheezing 30 days #300 mL prednisone 20 mg tablet 60 mg (3 x 20 mg) PO DAILY Asthma 01/04/23 5 days #15 tabs prednisone 20 mg tablet 40 mg (2 x 20 mg) PO DAILY #10 tabs 02/21/23 Allergies Allergy/AdvReac Type Severity Reaction Status Date / Time No Known Allergies Allergy Verified 03/11/23 02:47 Review of Systems 2 Review of Systems: pertinent positives and negatives as stated in [facility] Past Medical History Source: nursing notes reviewed Medical History Asthma exacerbation Chronic lung disease GERD (gastroesophageal reflux disease) HLD (hyperlipidemia) COPD exacerbation Hypertension Hypertension Surgical History History of appendectomy Social History Social History Household Members: None Household Members Other:: daughter lives next door Housing: Apartment Do you presently have visiting nurse or other home services: No Alcohol intake: current Alcohol intake frequency: a few times a week Alcohol type: beer Patient Tobacco Use Status: Former Tobacco user Quit Date: 2 months ago Tobacco use type: Cigarette Cigarette Packs Per Day: 1 Cigarettes Per Day: 20.0 Years Smoked: 50 Smoked in Last 30 Days: No e-Cigarette/Vaping Use: Never Used Second Hand Smoke Exposure: No Use of substances other than those prescribed or required for medical reasons: No Advance Directives: Yes Advance Directives on File: Yes Advance Directives Date on File: 02/26/22 service: No Current occupational status: employed Physical Exam 2 Vital Signs: Vital Signs: Last Vital Signs Temp 97.9 F 03/11/23 04:21 Pulse 107 H 03/11/23 04:21 Resp 16 03/11/23 04:21 BP 135/68 03/11/23 04:21 Pulse Ox 91 L 03/11/23 04:21 O2 Del Method Nasal Cannula 03/11/23 04:21 O2 Flow Rate 2 03/11/23 04:21 Oxygen Flow Rate 6 03/11/23 02:43 BMI result Body Mass Index 25.1 VITAL SIGNS: Reviewed. GENERAL: Well developed, well nourished, in no acute distress. HEAD: Normocephalic/atraumatic EYES: PERRLA, EOMI EARS: Ext canals without abnormality NOSE: Nares patent bilateral OROPHARYNX: no oral lesions noted, posterior pharynx clear NECK: Supple, no adenopathy LUNGS: decreased breath sounds throughout with expiratory wheeze SpO2<98> CARDIOVASCULAR: Regular rate and rhythm without noted murmurs, no JVD or lower extremity edema. ABDOMEN: Soft, non-tender, non-distended with bowel sounds. MUSCULOSKELETAL: No tenderness, deformities, or effusions noted on gross inspection. EXTREMITIES: No cyanosis, clubbing or edema. SKIN: Inspection of the skin reveals no rashes NEUROLOGIC: Alert and oriented x 4. Strength and sensation to light touch were grossly intact x 4. Medications Administered Discontinued Medications Generic Name Dose Route Start Last Admin Trade Name Freq PRN Reason Stop Dose Admin Albuterol Sulfate 7.5 mg/ 10 mg 03/11/23 03:28 03/11/23 03:34 Albuterol Sulfate 2.5 mg INHALE 03/11/23 03:29 10 mg ONCE ONE Administration Albuterol Sulfate 5 mg/ 0 mg 03/11/23 02:55 03/11/23 02:59 Albuterol/Ipratropium 3 ml INHALE 03/11/23 02:56 7.5 each ONCE ONE Administration Medical Decision Making Medical Decision Making [facility] Narrative: 0255: 67-year-old male with history and clinical presentation, DDX: chronic lung disease exacerbation, viral illness, pneumonia I reviewed all investigations and hematologic indices are negative for leukocytosis or left shift, there is a chronically stable macrocytic anemia and no thrombocytopenia. There is a mild lactic acidosis that is attributable to the multiple nebulized treatments of patient has received, there is no evidence of underlying infection the patient does have exacerbation of underlying chronic lung disease. He is afebrile and has no increase in sputum and does not qualify for administration of antibiotics at this time. Otherwise there is no demonstration of MARCUS and there is no electrolyte or liver enzyme derangements.COVID-19 and influenza. Chest x-ray is without chest x-ray is without infiltrate and otherwise my interpretation is in agreement with radiology's impression. After several rounds of nebulized treatments as well as steroids patient has clinically improved, he is on supplemental oxygen and repeat VBG shows resolution of respiratory acidosis and hypercapnia. However, patient will likely need additional observation and I discussed the case with the inpatient hospitalist who accepts admission. Differential Diagnosis Differential Diagnoses: The differential diagnosis associated with the presentation includes please see the discussion above Admission/Observation Consideration of admission/observation: Escalation of care including admission/observation considered please see the discussion above Consult Healthcare Provider Management of the patient was discussed with: Hospitalist Please see the discussion above Lab Data MDM Lab Attestation statement: I reviewed the patient's lab results. please see the discussion above 03/11/23 03:10 03/11/23 03:10 Labs: Lab Results 03/11/23 03/11/23 03/11/23 Range/Units 03:09 03:10 03:14 WBC 9.6 (4.8-10.8) X10*3/uL RBC 3.81 L (4.60-5.80) X10*6/uL Hgb 13.1 L (14.0-18.0) g/dl Hct 38.6 L (42.0-52.0) % MCV 101.3 H (80.0-98.0) fL MCH 34.4 H (27.0-33.0) pg MCHC 33.9 (31.0-36.0) g/dl RDW 12.3 (11.0-16.0) % Plt Count 237 (160-400) X10*3/uL MPV 10.0 (9.4-12.4) fL Immature Gran % (Auto) 0.7 H (0.0-0.4) % Neut % (Auto) 64.9 (45-73) % Lymph % (Auto) 22.9 (20-40) % [place] % (Auto) 7.4 (2-11) % Eos % (Auto) 3.7 (0-4) % Baso % (Auto) 0.4 (0-2) % Lymph # (Auto) 2.2 (1.2-4.9) X10*3/uL [place] # (Auto) 0.7 (0.1-1.2) X10*3/uL Eos # (Auto) 0.4 (0.0-0.4) X10*3/uL Baso # (Auto) 0.0 (0.0-0.2) X10*3/uL Abs Immat Gran (auto) 0.07 H (0.00-0.03) X10*3/uL Absolute Neuts (auto) 6.2 (2.0-8.3) x10*3/uL Absolute Nucleated RBC 0.000 (0.0-0.012) X10*3/uL Nucleated RBC % (auto) 0.0 (0.0-0.2) /100WBC VBG pH 7.26 L (7.32-7.43) VBG pCO2 68 mmHg VBG pO2 43 mmHg VBG HCO3 31 H (22-26) mmol/L VBG O2 Saturation 65.0 % VBG Base Excess 2.3 mmol/L Sodium 142 (135-145) mmol/L Potassium 4.3 (3.3-5.1) mmol/L Chloride 103 (96-108) mmol/L Carbon Dioxide 29 (22-29) mmol/L Anion Gap 14 (12-20) BUN 12 (9-16) mg/dL Creatinine 0.93 (0.5-1.4) mg/dL Estim Creat Clear Calc 74.9 Estimated GFR > 60 Random Glucose 151 H (60-115) mg/dL Lactic Acid 2.1 H* (0.5-2.0) mmol/L Calcium 8.8 D (8.4-10.2) mg/dL Total Bilirubin 0.6 (0.0-1.0) mg/dL AST 17 (5-37) U/L ALT 20 (0-40) U/L Alkaline Phosphatase 54 (39-117) U/L Total Protein 6.9 (6.5-8.0) g/dL Albumin 4.3 (3.5-5.0) g/dL COVID-19 (GWYN) (Negative) COVID-19 Clin Com Influenza Type A (RUBEN) (Negative) Influenza Type B (RUBEN) (Negative) Influenza A & B Note 03/11/23 03/11/23 Range/Units 03:21 04:29 WBC (4.8-10.8) X10*3/uL RBC (4.60-5.80) X10*6/uL Hgb (14.0-18.0) g/dl Hct (42.0-52.0) % MCV (80.0-98.0) fL MCH (27.0-33.0) pg MCHC (31.0-36.0) g/dl RDW (11.0-16.0) % Plt Count (160-400) X10*3/uL MPV (9.4-12.4) fL Immature Gran % (Auto) (0.0-0.4) % Neut % (Auto) (45-73) % Lymph % (Auto) (20-40) % [place] % (Auto) (2-11) % Eos % (Auto) (0-4) % Baso % (Auto) (0-2) % Lymph # (Auto) (1.2-4.9) X10*3/uL [place] # (Auto) (0.1-1.2) X10*3/uL Eos # (Auto) (0.0-0.4) X10*3/uL Baso # (Auto) (0.0-0.2) X10*3/uL Abs Immat Gran (auto) (0.00-0.03) X10*3/uL Absolute Neuts (auto) (2.0-8.3) x10*3/uL Absolute Nucleated RBC (0.0-0.012) X10*3/uL Nucleated RBC % (auto) (0.0-0.2) /100WBC VBG pH 7.39 (7.32-7.43) VBG pCO2 39 mmHg VBG pO2 79 mmHg VBG HCO3 24 (22-26) mmol/L VBG O2 Saturation 98.0 % VBG Base Excess -0.3 mmol/L Sodium (135-145) mmol/L Potassium (3.3-5.1) mmol/L Chloride (96-108) mmol/L Carbon Dioxide (22-29) mmol/L Anion Gap (12-20) BUN (9-16) mg/dL Creatinine (0.5-1.4) mg/dL Estim Creat Clear Calc Estimated GFR Random Glucose (60-115) mg/dL Lactic Acid (0.5-2.0) mmol/L Calcium (8.4-10.2) mg/dL Total Bilirubin (0.0-1.0) mg/dL AST (5-37) U/L ALT (0-40) U/L Alkaline Phosphatase (39-117) U/L Total Protein (6.5-8.0) g/dL Albumin (3.5-5.0) g/dL COVID-19 (GWYN) Negative (Negative) COVID-19 Clin Com See Note Influenza Type A (RUBEN) Negative (Negative) Influenza Type B (RUBEN) Negative (Negative) Influenza A & B Note See Note Independent Interpretation I performed an independent interpretation of an: EKG Interpretation: sinus tachycardia, HR - 113, no STEMI, OK /QRS /QTC is within normal limits. Radiology Impression Discussion of test interpretation with radiology: I have reviewed the radiologist's reading. Radiologist Impression: please see the discussion above External Record Review External record reviewed: Outpatient record, Prior outpatient labs and Prior outpatient radiology Chronic Conditions Patient?s care impacted by: Other COPD Critical Care Time Critical Care Time Critical Care Time: Yes Total Critical Care Time: 45 Attestation: I personally attest to this time spent taking care of the patient. Discharge Plan Discharge Clinical Impression: Acute respiratory failure, Acute exacerbation of chronic obstructive pulmonary disease (COPD) Patient Disposition: Admitted As Inpatient Prescriptions: No Action multivitamin Tablet 1 tab PO DAILY losartan 50 mg tablet 1 tab PO BID atorvastatin 10 mg tablet 1 tab PO DAILY omeprazole 20 mg Capsule,Delayed Release(Dr/Ec) 20 mg PO DAILY@0630 doxazosin 2 mg tablet 1 tab PO DAILY (DME) Aerochamber MV Spacer See Rx Instructions .Route Qty: 10 0RF Rx Instructions: As directed amlodipine 2.5 mg tablet 2.5 mg PO DAILY albuterol sulfate 2.5 mg /3 mL (0.083 %) solution for nebulization 2.5 mg inhalation TID PRN (Reason: Wheezing) prednisone 20 mg tablet 60 mg PO DAILY 5 Days Qty: 15 0RF albuterol sulfate [Proventil HFA] 90 mcg/actuation HFA aerosol inhaler 2 puff inhalation QID PRN (Reason: shortness of breath or wheezing) Qty: 8.5 2RF prednisone 20 mg tablet 40 mg PO DAILY Qty: 10 0RF losartan 50 mg tablet 50 mg PO BID losartan 50 mg tablet 50 mg PO BID albuterol sulfate 2.5 mg /3 mL (0.083 %) solution for nebulization 1 inhalation TID atorvastatin 10 mg tablet 10 mg PO DAILY amlodipine 2.5 mg tablet 2.5 mg PO DAILY albuterol sulfate 90 mcg/actuation HFA aerosol inhaler 2 puff inhalation QID PRN (Reason: wheezing) ipratropium bromide 0.02 % solution 1 inhalation Q6H PRN (Reason: wheezing) doxazosin 2 mg tablet 2 mg PO BEDTIME Anoro Ellipta 62.5-25 mcg/actuation blister with device 1 ea inhalation DAILY Anoro Ellipta 62.5-25 mcg/actuation blister with device 1 inh inhalation DAILY 30 Days Qty: 1 6RF ipratropium bromide 0.02 % solution 2.5 ml inhalation Q6H PRN (Reason: shortness of breath or wheezing) 30 Days Qty: 300 6RF
[2023-03-11] MEDS: Albuterol Sulfate 5 MG, Albuterol/Iprat 2.5/0.5MG 3 ML 3 ML INHALE (02:59)
[2023-03-11 03:16] LABS: Basophils Percent Auto 0.4 % (0-2); Eosinophils Absolute Auto 0.4 X10*3/uL (0.0-0.4); Eosinophils Percent Auto 3.7 % (0-4); Hematocrit 38.6 % (42.0-52.0); Hemoglobin 13.1 g/dl (14.0-18.0); Imm Gran Abs Auto 0.07 X10*3/uL (0.00-0.03); Imm Gran Pct Auto 0.7 % (0.0-0.4); Lymphocytes Absolute Auto 2.2 X10*3/uL (1.2-4.9); Lymphocytes Percent Auto 22.9 % (20-40); MANUAL DIFF FLAG NO; Mean Corpuscular HGB Conc 33.9 g/dl (31.0-36.0); Mean Corpuscular Hemoglobin 34.4 pg (27.0-33.0); Mean Corpuscular Volume 101.3 fL (80.0-98.0); Monocytes Absolute Auto 0.7 X10*3/uL (0.1-1.2); Monocytes Percent Auto 7.4 % (2-11); Neutrophils Absolute Auto 6.2 x10*3/uL (2.0-8.3); Neutrophils Percent Auto 64.9 % (45-73); Platelet Count 237 X10*3/uL (160-400); Red Blood Count 3.81 X10*6/uL (4.60-5.80); Red Cell Distribution Width 12.3 % (11.0-16.0); White Blood Count 9.6 X10*3/uL (4.8-10.8)
[2023-03-11 03:17] LABS: Venous Blood Gas Refer to POC result
[2023-03-11 03:20] LABS: VBG Base Excess 2.3 mmol/L; VBG HCO3 31 mmol/L (22-26); VBG pCO2 68 mmHg; VBG pH 7.26 (7.32-7.43); VBG pO2 43 mmHg
--- NOTE | 2023-03-11 03:25 | MHC.EDTECH ---
PATIENT WAS BIBA FROM HOME ,VITALS TAKEN ,PT WAS HOOKED UP TO [facility] [facility] [facility] ,EKG TAKEN AND WAS READ BY PROVIDER,PATIENT BLOOD DRAWN INCLUDING BOTH SETS OF BLOOD CULTURE AND LACTIC ACID ,FLU /COVID SWAB ALSO COLLECTED ALL SENT TO LAB ,PT WAS CHANGE INTO HOSPITAL GOWN ,RT WAS CALLED ,PATIENT ON HIS 2 ND BREATHING TREATMENT ,PT WAS RE VITAL ,CALL CRUZ WITHIN PATIENT REACH .
[2023-03-11 03:31] LABS: Alanine Aminotransferase 20 U/L (0-40); Albumin Level 4.3 g/dL (3.5-5.0); Alkaline Phosphatase 54 U/L (39-117); Anion Gap 14 (12-20); Aspartate Amino Transferase 17 U/L (5-37); Bilirubin Total 0.6 mg/dL (0.0-1.0); Blood Urea Nitrogen 12 mg/dL (9-16); Calcium 8.8 mg/dL (8.4-10.2); Carbon Dioxide 29 mmol/L (22-29); Chloride 103 mmol/L (96-108); Creatinine Clr Calc Pharmacy 74.9; Estimated Glomerular Filt Rate > 60; Glucose Random 151 mg/dL (60-115); Potassium 4.3 mmol/L (3.3-5.1); Sodium 142 mmol/L (135-145); Total Protein 6.9 g/dL (6.5-8.0)
[2023-03-11 03:31] LABS: Lactic Acid 2.1 mmol/L (0.5-2.0)
[2023-03-11] MEDS: Albuterol Sulfate 7.5 MG, Albuterol Sulfate (0.083%) 2.5 MG 10 MG INHALE (03:34)
[2023-03-11 03:45] LABS: COVID-19 Test Negative (Negative); IDNOW Serial# 08D9AD1C; IDNOW Serial# BCCEAD1C; Influenza A Negative (Negative); Influenza B2 Negative (Negative)
--- NOTE | 2023-03-11 04:00 | PC.NURSE ---
pt finished with respiratory treatment, pt now resting comfortably, no O2 at this time, O2 at 97%. no audible wheezing reports feeling better, denies SOB
--- NOTE | 2023-03-11 04:18 | PC.NURSE ---
pt resting comfortably with eyes closed, breathing even and unlabored. 02 dropping to 88%, placed pt on 3L NC, O2 at 93%
--- NOTE | 2023-03-11 04:31 | MHC.EDTECH ---
REPEATED VBG DRAWN AND SENT TO LAB ,PATIENT BELONGINGS LIST DONE ,VITALS RE CHECK ,PT SLEEPING ,CALL CRUZ WITHIN REACH .
[2023-03-11 04:34] LABS: Venous Blood Gas Refer to POC result
[2023-03-11 04:35] LABS: VBG Base Excess -0.3 mmol/L; VBG HCO3 24 mmol/L (22-26); VBG pCO2 39 mmHg; VBG pH 7.39 (7.32-7.43); VBG pO2 79 mmHg
--- NOTE | 2023-03-11 05:06 | P.HPHOSP_ITS ---
History of Present Illness Date of Service: 03/11/23 Chief Complaint: Dyspnea This is a 67-year-old male with pertinent history of COPD not on home oxygen, former tobacco use disorder, mixed hyperlipidemia, essential hypertension, gastroesophageal reflux disease who presents to the emergency department for evaluation of dyspnea and wheezing. Patient states it started on the day of presentation. He tried to uses home albuterol inhaler without relief. It has been progressive and worse with ambulation. No fevers or chills. No cough. Upon EMS arrival, patient was found to be hypoxemic. He denies chest discomfort, palpitations, abdominal pain, changes in urinary or bowel habits. Patient states he quit smoking. Has never been intubated and does not want any intubation. In the emergency department, patient with wheezing despite multiple DuoNeb treatments. Requiring 2 L supplemental oxygen. Review of Systems 2 Constitutional: Constitutional: Reports no additional constitutional complaints Cardiovascular: Cardiovascular: Reports dyspnea on exertion Respiratory: Respiratory: Reports dyspnea on exertion and Reports wheezing Allergic/Immunologic: Allergic/Immunologic: Reports wheezing [facility] Medical History Asthma exacerbation Chronic lung disease GERD (gastroesophageal reflux disease) HLD (hyperlipidemia) COPD exacerbation Hypertension Hypertension Pertinent family history: No family history of early CAD Surgical History History of appendectomy Social History Household Members: None Household Members Other:: daughter lives next door Housing: Apartment Do you presently have visiting nurse or other home services: No Alcohol intake: current Alcohol intake frequency: a few times a week Alcohol type: beer Patient Tobacco Use Status: Former Tobacco user Quit Date: 2 months ago Tobacco use type: Cigarette Cigarette Packs Per Day: 1 Cigarettes Per Day: 20.0 Years Smoked: 50 Smoked in Last 30 Days: No e-Cigarette/Vaping Use: Never Used Second Hand Smoke Exposure: No Use of substances other than those prescribed or required for medical reasons: No Advance Directives: Yes Advance Directives on File: Yes Advance Directives Date on File: 02/26/22 service: No Current occupational status: employed Meds Allergies Allergy/AdvReac Type Severity Reaction Status Date / Time No Known Allergies Allergy Verified 03/11/23 02:47 Home Medications Medication Instructions Recorded Confirmed Last Taken Type atorvastatin 10 mg tablet 1 tab PO DAILY 01/31/21 01/04/23 01/03/23 History doxazosin 2 mg tablet 1 tab PO DAILY 01/31/21 01/04/23 01/03/23 History losartan 50 mg tablet 1 tab PO BID 01/31/21 01/04/23 01/03/23 History multivitamin 1 tab PO DAILY 01/31/21 01/04/23 01/03/23 History omeprazole 20 mg capsule,delayed 20 mg PO DAILY@0630 01/31/21 03/11/23 01/03/23 History release amlodipine 2.5 mg tablet 2.5 mg PO DAILY 08/19/22 01/04/23 01/03/23 History albuterol sulfate 2.5 mg/3 mL 2.5 mg inhalation TID PRN Wheezing 01/04/23 01/04/23 01/03/23 History (0.083 %) solution for nebulization albuterol sulfate 2.5 mg/3 mL 1 inhalation TID 03/11/23 Unknown History (0.083 %) solution for nebulization albuterol sulfate 90 mcg/actuation 2 puff inhalation QID PRN wheezing 03/11/23 03/11/23 Unknown History aerosol inhaler amlodipine 2.5 mg tablet 2.5 mg PO DAILY 03/11/23 03/11/23 Unknown History atorvastatin 10 mg tablet 10 mg PO DAILY 03/11/23 03/11/23 Unknown History doxazosin 2 mg tablet 2 mg PO BEDTIME 03/11/23 03/11/23 Unknown History ipratropium bromide 0.02 % 1 inhalation Q6H PRN wheezing 03/11/23 Unknown History solution for inhalation losartan 50 mg tablet 50 mg PO BID 03/11/23 03/11/23 Unknown History losartan 50 mg tablet 50 mg PO BID 03/11/23 03/11/23 Unknown History umeclidinium 62.5 mcg-vilanterol 1 ea inhalation DAILY 03/11/23 03/11/23 Unknown History 25 mcg/actuation powdr for inhalation (Anoro Ellipta) Physical Exam 2 Vital Signs and Narrative: Vital Signs: Last Vital Signs Temp 97.9 F 03/11/23 04:21 Pulse 107 H 03/11/23 04:21 Resp 16 03/11/23 04:21 BP 135/68 03/11/23 04:21 Pulse Ox 91 L 03/11/23 04:21 O2 Del Method Nasal Cannula 03/11/23 04:21 O2 Flow Rate 2 03/11/23 04:21 Oxygen Flow Rate 6 03/11/23 02:43 BMI result Body Mass Index 25.1 Middle-aged male lying in bed in mild distress on supplemental oxygen Neck supple, no JVD Tachycardic with regular rhythm, S1-S2 heard Bilateral wheezing without crackles, tachypnea present Abdomen soft nontender, no guarding, no rigidity Patient is awake, alert and oriented to self, place, time and person ; no focal motor deficit Psych: Normal mood No pedal edema Results Labs 03/11/23 03:10 03/11/23 03:10 Labs: Laboratory Results - last 24 hr 03/11/23 03/11/23 03/11/23 03:09 03:10 03:14 MCV 101.3 H MCH 34.4 H MCHC 33.9 RDW 12.3 Plt Count 237 MPV 10.0 Immature Gran % (Auto) 0.7 H Neut % (Auto) 64.9 Lymph % (Auto) 22.9 [place] % (Auto) 7.4 Eos % (Auto) 3.7 Baso % (Auto) 0.4 Lymph # (Auto) 2.2 [place] # (Auto) 0.7 Eos # (Auto) 0.4 Baso # (Auto) 0.0 Abs Immat Gran (auto) 0.07 H Absolute Neuts (auto) 6.2 Absolute Nucleated RBC 0.000 Nucleated RBC % (auto) 0.0 VBG pH 7.26 L VBG pCO2 68 VBG pO2 43 VBG HCO3 31 H VBG O2 Saturation 65.0 VBG Base Excess 2.3 Anion Gap 14 Estim Creat Clear Calc 74.9 Estimated GFR > 60 Random Glucose 151 H Lactic Acid 2.1 H* Calcium 8.8 D Total Bilirubin 0.6 AST 17 ALT 20 Alkaline Phosphatase 54 Total Protein 6.9 Albumin 4.3 COVID-19 (GWYN) COVID-19 Clin Com Influenza Type A (RUBEN) Influenza Type B (RUBEN) Influenza A & B Note 03/11/23 03/11/23 03:21 04:29 MCV MCH MCHC RDW Plt Count MPV Immature Gran % (Auto) Neut % (Auto) Lymph % (Auto) [place] % (Auto) Eos % (Auto) Baso % (Auto) Lymph # (Auto) [place] # (Auto) Eos # (Auto) Baso # (Auto) Abs Immat Gran (auto) Absolute Neuts (auto) Absolute Nucleated RBC Nucleated RBC % (auto) VBG pH 7.39 VBG pCO2 39 VBG pO2 79 VBG HCO3 24 VBG O2 Saturation 98.0 VBG Base Excess -0.3 Anion Gap Estim Creat Clear Calc Estimated GFR Random Glucose Lactic Acid Calcium Total Bilirubin AST ALT Alkaline Phosphatase Total Protein Albumin COVID-19 (GWYN) Negative COVID-19 Clin Com See Note Influenza Type A (RUBEN) Negative Influenza Type B (RUBEN) Negative Influenza A & B Note See Note Imaging Radiologist's Impressions: Impressions Chest X-Ray 03/11/23 03:00 IMPRESSION: No active cardiopulmonary disease. Assessment and Plan (1) Acute exacerbation of chronic obstructive pulmonary disease (COPD): Status: Acute Plan This is a 67-year-old male with pertinent history of COPD not on home oxygen, former tobacco use disorder, mixed hyperlipidemia, essential hypertension, gastroesophageal reflux disease presents to the emergency department for evaluation of dyspnea and wheezing. #. Acute hypoxemic respiratory failure secondary to acute exacerbation of COPD: Will admit patient and initiate systemic steroids. Scheduled and p.r.n. DuoNebs. Continue home inhaler. Monitor oxygen saturation and wean as tolerated. Maintain oxygen saturation greater than 88%. Defer azithromycin. #. Essential hypertension: Continue home antihypertensives #. Gastroesophageal reflux disease: On PPI #. Mixed hyperlipidemia: On statin Med rec pending DVT prophylaxis: Lovenox 40 mg daily DNR/DNI Cardiac diet Admit as inpatient and will require two night minimum hospital stay for IV steroids, supplemental oxygen (as above), which is not possible in a lesser acute setting. Quality Stroke Does the patient have a stroke diagnosis?: No VTE Prior VTE?: No VTE Risk Level:: Medical - moderate - high VTE Device Contraindication: Treatment Not Indicated VTE Drug Contraindication: N/A - Med Ordered
[2023-03-11 05:14] LABS: Reflex Lactate? Lactic Acid Added
[2023-03-11] MEDS: methylPREDNISolone Sod Succ 40 MG/ML VIAL IVPUSH ×2 (06:14→18:03)
[2023-03-11] MEDS: Enoxaparin Sodium 40 MG/0.4 ML SYRINGE SUBCUT (06:14)
--- NOTE | 2023-03-11 06:51 | PC.NURSE ---
Repeated Lactic drawn and sent down to lab
[2023-03-11 07:17] LABS: ~Lactic Acid-LAB USE ONLY 6.2 mmol/L (0.5-2.0)
--- NOTE | 2023-03-11 07:52 | PHA.MEDREC ---
Pharmacy Consult ? Medication Reconciliation Pharmacy has completed the medication reconciliation.SPOKE TO PATIENT AND CONFIRMED MEDICATIONS AND TIMING OF INHALERS. HE STATES HE TAKES ANORO AT BEDTIME AND ALBUTEROL HFA SCHEDULED BID IN THE MORNING AND AFTERNOON.
[2023-03-11] MEDS: 0.9 % Sodium Chloride 500 ML IV (07:53)
--- NOTE | 2023-03-11 08:39 | PM.SEPBOLA4 ---
Sepsis Bolus Exclusion Sepsis Bolus Exclusion Date of Occurrence: 03/11/23 This patient met severe sepsis criteria due to the following condition(s):: Lactate>=4mmol/L In my clinical judgement the administration of 30 ml/kg of crystalloid would be detrimental to this patient due to the patient's following conditions:: Concern for fluid overload Replace the 30 mls/kg with (*zero amount not acceptable): *Note: One of the godfrey must be documented Crystalloids amount given in mls: (rate must be at least 150cc/hr): 500 At a rate of (must be > 125 cchr):: 500
[2023-03-11] MEDS: Albuterol/Iprat 2.5/0.5MG 3 ML AMPUL.NEB INHALE ×4 (08:45→20:25)
[2023-03-11] MEDS: Doxycycline Hyclate 100 MG in 0.9 % Sodium Chloride 250 ML 166.67 MG IV ×2 (08:46→20:29)
[2023-03-11 08:54] LABS: Reflex Lactate? 2 Y
[2023-03-11 10:49] LABS: ~Lactic Acid-LAB USE ONLY 6.8 mmol/L (0.5-2.0)
--- NOTE | 2023-03-11 15:47 | HO.PM.IMPN ---
Subjective Subjective Date of Service: 03/11/23 Interval History: seen and examined this morning follow up for copd exacerbation reports improvement in breathing, no significant cough, no chest pain; denies recent sick contacts Review of Systems Review of Systems: Yes all other systems are reviewed and are negative Constitutional Constitutional: Denies chills and Denies fever(s) Cardiovascular Cardiovascular: Denies chest pain, Denies palpitations and Reports dyspnea Respiratory Respiratory: Denies cough and Reports dyspnea Gastrointestinal Gastrointestinal: Denies abdominal pain Endocrine Endocrine: Denies palpitations Physical Exam Vital Signs: Vital Signs: Last Vital Signs Temp 98.6 F 03/11/23 14:21 Pulse 122 H 03/11/23 14:21 Resp 16 03/11/23 14:21 BP 131/66 03/11/23 14:21 Pulse Ox 93 03/11/23 14:21 O2 Del Method Nasal Cannula 03/11/23 14:21 O2 Flow Rate 2 03/11/23 14:21 Oxygen Flow Rate 6 03/11/23 02:43 BMI result Body Mass Index 25.1 Const: General: cooperative, comfortable, no acute distress, alert and awake Nutritional Appearance: average body habitus Orientation/consciousness: patient oriented x3 Resp: Other: diminished breath sounds; scattered expiratory wheeze Effort & Inspection: normal respiratory effort, able to speak in complete sentences, no respiratory distress and no use of accessory muscles Cardio: Rate: tachycardic Neuro: General: patient oriented x3, moves all extremities and CN's II-XI intact bilaterally Extrem: General: Yes no pedal edema Objective Data Active Medications Acetaminophen (Acetaminophen 325 Mg Tablet) 650 mg PO Q6H PRN PRN Reason: Pain, Mild (Pain Scale 1-3) Albuterol/Ipratropium (Albuterol/Iprat 2.5/0.5mg 3 Ml Ampul.Neb) 3 ml INHALE RQ4H WHILE AWAKE [facility] Last Admin: 03/11/23 11:32 Dose: 3 ml Documented By: HIWOT Albuterol/Ipratropium (Albuterol/Iprat 2.5/0.5mg 3 Ml Ampul.Neb) 3 ml INHALE Q4H PRN PRN Reason: Wheezing Enoxaparin Sodium (Enoxaparin Sodium 40 Mg/0.4 Ml Syringe) 40 mg SUBCUT Q24H [facility] Last Admin: 03/11/23 06:14 Dose: 40 mg Documented By: ARNULFO Doxycycline Hyclate 100 mg/ (Sodium Chloride) 250 mls @ 166.67 mls/hr IV Q12H [facility] Last Infusion: 03/11/23 10:24 Dose: Infused Documented By: CUBA Melatonin (Melatonin 3 Mg Tablet) 6 mg PO BEDTIME PRN PRN Reason: Insomnia Methylprednisolone Sodium Succinate (Methylprednisolone Sod Succ 40 Mg/Ml Vial) 40 mg IVPUSH Q12H [facility] Last Admin: 03/11/23 06:14 Dose: 40 mg Documented By: ARNULFO Ondansetron HCl (Ondansetron Hcl 4 Mg/2 Ml Vial) 4 mg IVPUSH Q8H PRN PRN Reason: Nausea and Vomiting Sodium Chloride (0.9 % Sodium Chloride Flush 3 Ml Syringe) 3 ml IVFLUSH QSHIFT [facility] Last Admin: 03/11/23 07:54 Dose: Not Given Documented By: CUBA Non-Admin Reason: IV Running Labs 03/11/23 03:10 03/11/23 03:10 Labs: Laboratory Results - last 24 hr 03/11/23 03/11/23 03/11/23 03:09 03:10 03:14 MCV 101.3 H MCH 34.4 H MCHC 33.9 RDW 12.3 Plt Count 237 MPV 10.0 Immature Gran % (Auto) 0.7 H Neut % (Auto) 64.9 Lymph % (Auto) 22.9 [place] % (Auto) 7.4 Eos % (Auto) 3.7 Baso % (Auto) 0.4 Lymph # (Auto) 2.2 [place] # (Auto) 0.7 Eos # (Auto) 0.4 Baso # (Auto) 0.0 Abs Immat Gran (auto) 0.07 H Absolute Neuts (auto) 6.2 Absolute Nucleated RBC 0.000 Nucleated RBC % (auto) 0.0 VBG pH 7.26 L VBG pCO2 68 VBG pO2 43 VBG HCO3 31 H VBG O2 Saturation 65.0 VBG Base Excess 2.3 Anion Gap 14 Estim Creat Clear Calc 74.9 Estimated GFR > 60 Random Glucose 151 H Lactic Acid 2.1 H* Lactic Acid F/U @ 2Hr Lactic Acid F/U @ 4Hr Calcium 8.8 D Total Bilirubin 0.6 AST 17 ALT 20 Alkaline Phosphatase 54 Total Protein 6.9 Albumin 4.3 COVID-19 (GWYN) COVID-19 Clin Com Influenza Type A (RUBEN) Influenza Type B (RUBEN) Influenza A & B Note 03/11/23 03/11/23 03/11/23 03:21 04:29 06:48 MCV MCH MCHC RDW Plt Count MPV Immature Gran % (Auto) Neut % (Auto) Lymph % (Auto) [place] % (Auto) Eos % (Auto) Baso % (Auto) Lymph # (Auto) [place] # (Auto) Eos # (Auto) Baso # (Auto) Abs Immat Gran (auto) Absolute Neuts (auto) Absolute Nucleated RBC Nucleated RBC % (auto) VBG pH 7.39 VBG pCO2 39 VBG pO2 79 VBG HCO3 24 VBG O2 Saturation 98.0 VBG Base Excess -0.3 Anion Gap Estim Creat Clear Calc Estimated GFR Random Glucose Lactic Acid Lactic Acid F/U @ 2Hr 6.2 H* Lactic Acid F/U @ 4Hr Calcium Total Bilirubin AST ALT Alkaline Phosphatase Total Protein Albumin COVID-19 (GWYN) Negative COVID-19 [employer] Com See Note Influenza Type A (RUBEN) Negative Influenza Type B (RUBEN) Negative Influenza A & B Note See Note 03/11/23 10:21 MCV MCH MCHC RDW Plt Count MPV Immature Gran % (Auto) Neut % (Auto) Lymph % (Auto) [place] % (Auto) Eos % (Auto) Baso % (Auto) Lymph # (Auto) [place] # (Auto) Eos # (Auto) Baso # (Auto) Abs Immat Gran (auto) Absolute Neuts (auto) Absolute Nucleated RBC Nucleated RBC % (auto) VBG pH VBG pCO2 VBG pO2 VBG HCO3 VBG O2 Saturation VBG Base Excess Anion Gap Estim Creat Clear Calc Estimated GFR Random Glucose Lactic Acid Lactic Acid F/U @ 2Hr Lactic Acid F/U @ 4Hr 6.8 H* Calcium Total Bilirubin AST ALT Alkaline Phosphatase Total Protein Albumin COVID-19 (GWYN) COVID-19 Clin Com Influenza Type A (RUBEN) Influenza Type B (RUBEN) Influenza A & B Note Assessment and Plan (1) Acute exacerbation of chronic obstructive pulmonary disease (COPD): Status: Acute Plan This is a 67-year-old male with pertinent history of COPD not on home oxygen, former tobacco use disorder, mixed hyperlipidemia, essential hypertension, gastroesophageal reflux disease presents to the emergency department for evaluation of dyspnea and wheezing. Acute hypoxemic respiratory failure secondary to acute exacerbation of COPD no evidence of sepsis, no phlegm production, tachycardia likely related to breathing treatments continue IV solu-medrol, breathing treatments Maintain oxygen saturation greater than 88% continue IV doxycycline for now acute lactic acidosis likely type 2 related to breathing treatments, not sepsis start IVF trend will change albuterol to xopenex Essential hypertension: Continue home norvasc, losartan Gerd continue prilosec HLD continue statin ?bph continue carduara DVT prophylaxis: Lovenox 40 mg daily DNR/DNI attending - Dr. Gannon Requires ongoing inpatient stay for IV steroids, supplemental oxygen, which is not possible in a lesser acute setting. Quality Stroke Does the patient have a stroke diagnosis?: No VTE Prior VTE?: No VTE Risk Level:: Medical - moderate - high VTE Device Contraindication: Treatment Not Indicated VTE Drug Contraindication: N/A - Med Ordered
[2023-03-11] MEDS: Lactated Ringers 1,000 ML 100 ML IVCONT (16:21)
--- NOTE | 2023-03-11 16:33 | PC.NURSE ---
Pt A/Ox4. Ambulates independently. Maintaining O2 sats mid 90s on 2L. Slight expiratory wheezing noted but pt states he feels his breathing is so much better than when he came in. Critical lactic of 6.2 this AM, RITCHIE Gong aware and order obtained for 500cc bolus as well as doxy. Critical lactic again of 6.8 this afternoon, RITCHIE Gong made aware once again. Pt currently resting comfortably IVF infusing per orders, offers no complaints at this time.
[2023-03-11] MEDS: Doxazosin Mesylate 2 MG TABLET PO (20:29)
[2023-03-11] MEDS: Losartan Potassium 50 MG TABLET PO (20:29)
[2023-03-12 02:17] VITALS: PULSE 119; RESP 22; O2SAT 94
[2023-03-12] MEDS: levalbuterol HCL 1.25 MG/3 ML VIAL.NEB INHALE (02:17)
[2023-03-12 03:23] VITALS: BP 138/64; PULSE 96; RESP 17; TEMP 36.3; O2SAT 94
[2023-03-12 05:30] LABS: Hemoglobin 11.3 g/dl (14.0-18.0); Mean Corpuscular HGB Conc 34.2 g/dl (31.0-36.0); Mean Corpuscular Hemoglobin 34.2 pg (27.0-33.0); Mean Platelet Volume 10.5 fL (9.4-12.4); Platelet Count 249 X10*3/uL (160-400); Red Cell Distribution Width 12.3 % (11.0-16.0)
[2023-03-12 05:31] LABS: WBC ABN SCTR FOR CBC 1; White Blood Count 23.5 X10*3/uL (4.8-10.8)
[2023-03-12 05:46] LABS: Anion Gap 10 (12-20); Blood Urea Nitrogen 16 mg/dL (9-16); Calcium 8.4 mg/dL (8.4-10.2); Carbon Dioxide 26 mmol/L (22-29); Chloride 110 mmol/L (96-108); Creatinine Clr Calc Pharmacy 83.9; Estimated Glomerular Filt Rate > 60; Glucose Random 166 mg/dL (60-115); Potassium 4.3 mmol/L (3.3-5.1); Sodium 142 mmol/L (135-145)
[2023-03-12 05:55] LABS: Band Neutrophils Percent 1 % (3-5); Lymphocytes Absolute Manual 0.5 X10*3/uL (1.2-4.9); Lymphocytes Percent Manual 2 % (20-40); Monocytes Absolute Manual 0.5 X10*3/uL (0.1-1.2); Monocytes Percent Manual 2 % (2-11); Neutrophils Absolute Manual 22.6 X10*3/uL (2.0-8.3); Neutrophils Percent Manual 95 % (45-73)
[2023-03-12 05:56] LABS: Large Platelet PRESENT; Macrocytosis 1+ (5-14) /OIF; Platelet Estimate NORMAL (NORMAL); Platelet Morphology Comment NOTED; RBC Morphology NOTED; Toxic Vacuolation PRESENT
[2023-03-12] MEDS: Omeprazole 20 MG CAPSULE.DR PO (06:12)
[2023-03-12] MEDS: Enoxaparin Sodium 40 MG/0.4 ML SYRINGE SUBCUT (06:12)
[2023-03-12] MEDS: methylPREDNISolone Sod Succ 40 MG/ML VIAL IVPUSH (06:12)
[2023-03-12 07:25] VITALS: BP 139/67; PULSE 90; RESP 22; TEMP 36.5; O2SAT 94
[2023-03-12 07:47] VITALS: PULSE 82; RESP 18; O2SAT 95
[2023-03-12] MEDS: Albuterol/Iprat 2.5/0.5MG 3 ML AMPUL.NEB INHALE ×2 (07:47→11:12)
[2023-03-12] MEDS: amLODIPine Besylate 2.5 MG TABLET PO (08:26)
[2023-03-12] MEDS: Atorvastatin Calcium 10 MG TABLET PO (08:26)
[2023-03-12] MEDS: Losartan Potassium 50 MG TABLET PO (08:26)
[2023-03-12] MEDS: 0.9 % Sodium Chloride Flush 3 ML SYRINGE IVFLUSH (08:26)
[2023-03-12] MEDS: Doxycycline Hyclate 100 MG in 0.9 % Sodium Chloride 250 ML 166.67 MG IV (08:28)
--- NOTE | 2023-03-12 09:25 | MHC.CM.PN ---
pt lives alone had no servceis and is independent pt has own ride home dc plan home no servceis
[2023-03-12 10:55] LABS: Lactic Acid 3.3 mmol/L (0.5-2.0)
[2023-03-12 11:12] VITALS: PULSE 102; RESP 18; O2SAT 94
--- NOTE | 2023-03-12 12:01 | PM.DS ---
DS: Providers Provider Date of Service: 03/12/23 Date of admission: 03/11/23 05:04 Date of discharge: 03/12/23 Primary care physician: Feliberto Britt MD Attending physician on discharge: Red Gannon Discharging clinician: Farideh Todd DS: Diagnosis Discharge Diagnosis (1) Acute exacerbation of chronic obstructive pulmonary disease (COPD): Status: Acute DS: Summary Hospital Course Hospital Course: From H&P on day of admission This is a 67-year-old male with pertinent history of COPD not on home oxygen, former tobacco use disorder, mixed hyperlipidemia, essential hypertension, gastroesophageal reflux disease who presents to the emergency department for evaluation of dyspnea and wheezing. Patient states it started on the day of presentation. He tried to uses home albuterol inhaler without relief. It has been progressive and worse with ambulation. No fevers or chills. No cough. Upon EMS arrival, patient was found to be hypoxemic. He denies chest discomfort, palpitations, abdominal pain, changes in urinary or bowel habits. Patient states he quit smoking. Has never been intubated and does not want any intubation. In the emergency department, patient with wheezing despite multiple DuoNeb treatments. Requiring 2 L supplemental oxygen. Acute hypoxemic respiratory failure secondary to acute exacerbation of COPD no evidence of sepsis, no phlegm production, tachycardia likely related to breathing treatments. patient was treated with IV solu-medrol, and breathing treatments. his breathing has improved significantly and he is eager to return home. He has oxygen at home which he uses as needed. His white blood cell count did increase quite a but but clinically he has improved and the elvation is likely due to steroid use. he has remained afebrile, tachycardia has improved and chest x-ray showed no evidence of pneumonia.recommend outpatient labs in one week to ensure white count is trending down. acute lactic acidosis likely type 2 related to breathing treatments, not sepsis. Improved with IVF. Time Attestation Discharge coordination time: Greater than 30 minutes Quality: Safe Use of Opioids Does Pt have an Active Cancer Diagnosis on the Problem List?: No Quality: Stroke Does the patient have a stroke diagnosis?: No Physical Exam Vital Signs: Vital Signs: Last Vital Signs Temp 97.7 F 03/12/23 07:25 Pulse 102 H 03/12/23 11:12 Resp 18 03/12/23 11:12 BP 139/67 03/12/23 07:25 Pulse Ox 94 03/12/23 07:25 O2 Del Method Nasal Cannula 03/12/23 07:25 O2 Flow Rate 2 03/12/23 07:25 Oxygen Flow Rate 6 03/11/23 02:43 BMI result Body Mass Index 25.1 Const: General: cooperative, comfortable, no acute distress, alert and awake Nutritional Appearance: average body habitus Orientation/consciousness: patient oriented x3 Resp: Effort & Inspection: normal respiratory effort, able to speak in complete sentences, no respiratory distress and no use of accessory muscles Cardio: Rate: regular rate GI: Inspection: No distended Palpation (GI): Soft to palpation and nontender Neuro: General: patient oriented x3, moves all extremities and CN's II-XI intact bilaterally DS: Data Data Completed and Pending Completed studies during hospitalization [Text1]: Procedures Assistance with Respiratory Ventilation, Less than 24 Consecutive Hours, Continuous Positive Airway Pressure (09/22/22) Labs on day of discharge: Laboratory Results - last 24 hr 03/12/23 03/12/23 05:15 10:12 WBC 23.5 H RBC 3.30 L Hgb 11.3 L Hct 33.0 L MCV 100.0 H MCH 34.2 H MCHC 34.2 RDW 12.3 Plt Count 249 MPV 10.5 Immature Gran % (Auto) Cancelled Neut % (Auto) Cancelled Lymph % (Auto) Cancelled [place] % (Auto) Cancelled Eos % (Auto) Cancelled Baso % (Auto) Cancelled Lymph # (Auto) Cancelled [place] # (Auto) Cancelled Eos # (Auto) Cancelled Baso # (Auto) Cancelled Abs Immat Gran (auto) Cancelled Absolute Neuts (auto) Cancelled Absolute Nucleated RBC 0.000 Nucleated RBC % (auto) 0.0 Neutrophils % (Manual) 95 H Band Neutrophils % 1 L Lymphocytes % (Manual) 2 L Monocytes % (Manual) 2 Abs Neuts (Manual) 22.6 H Lymphocytes # (Manual) 0.5 L Monocytes # (Manual) 0.5 Toxic Vacuolation PRESENT Platelet Estimate NORMAL Large Platelets PRESENT Plt Morphology Comment NOTED RBC Morphology NOTED Macrocytosis 1+ (5-14) Sodium 142 Potassium 4.3 Chloride 110 H Carbon Dioxide 26 Anion Gap 10 L BUN 16 Creatinine 0.83 Estim Creat Clear Calc 83.9 Estimated GFR > 60 Random Glucose 166 H Lactic Acid 3.3 H* Calcium 8.4 Preliminary micro results at discharge 03/11/23 03:21 Blood Culture - Preliminary Blood - Venous No growth after 24 hours. 03/11/23 03:09 Blood Culture - Preliminary Blood - Venous No growth after 24 hours. Discharge Plan Discharge Anticipated Discharge Date/Time: 03/12/23 12:04 Patient Disposition: Home, Self-Care Discharge Diagnosis: acute copd exacerbation Referrals: Feliberto Britt MD [Primary Care Provider] - 1 Week Discharge Medications: New prednisone 20 mg tablet 40 mg PO DAILY 5 Days Qty: 10 0RF Continued multivitamin Tablet 1 tab PO DAILY omeprazole 20 mg Capsule,Delayed Release(Dr/Ec) 20 mg PO DAILY@0630 losartan 50 mg tablet 50 mg PO BID albuterol sulfate 2.5 mg /3 mL (0.083 %) solution for nebulization 2.5 mg inhalation TID PRN (Reason: Shortness Of Breath Or Wheezing) atorvastatin 10 mg tablet 10 mg PO DAILY amlodipine 2.5 mg tablet 2.5 mg PO DAILY albuterol sulfate 90 mcg/actuation HFA aerosol inhaler 2 puff inhalation BID@0900,1500 PRN (Reason: wheezing) ipratropium bromide 0.02 % solution 2.5 ml inhalation Q6H PRN (Reason: wheezing) doxazosin 2 mg tablet 2 mg PO BEDTIME Anoro Ellipta 62.5-25 mcg/actuation blister with device 1 ea inhalation BEDTIME No Action (DME) Aerochamber MV Spacer See Rx Instructions .Route Qty: 10 0RF Rx Instructions: As directed Activity on Discharge: As tolerated Stand Alone Forms: Patient Portal Discharge page Other Ambulatory Orders: Complete Blood Count Auto Diff (Routine) Timeframe: 1 Week Facility: [facility] - Location: Laboratory Ordered By: Farideh Todd Care Plan Goals: see below Health Concerns: acute COPD exacerbation elevated WBC count Plan of Treatment: complete course of steroids as prescribed no need for antibiotics at this time can continue to use inhalers and breathing treatments as before call to schedule follow up appointment with PCP as needed if symptoms return or worsen return to the ED elevated WBC count is likely related to the use of steroids but recommend to repeat blood work in one week to make sure it is trending down . can continue to use oxygen as needed as previously prescribed Assessment: see discharge summary
[2023-03-12 12:15] LABS: Reflex Lactate? Lactic Acid Added
--- NOTE | 2023-03-12 12:20 | MHC.CM.PN ---
DP: PT HAS BEEN MEDICALLY CLEARED FOR DC HOME, NO SERVICES. PT HAS OWN RIDE HOME
--- NOTE | 2023-03-12 12:30 | PC.NURSE ---
Pt coming to get him for D/C, not bringing O2, patient okay with D/C home in the car ride without O2. O2 taken off, Sat on RA is 89%, no resp distress.
[2023-03-12 12:57] LABS: ~Lactic Acid-LAB USE ONLY 4.2 mmol/L (0.5-2.0)
[2023-03-12 13:07] VITALS: O2SAT 91
--- NOTE | 2023-03-12 13:07 | PC.NURSE ---
Provider OKay with d/c with labs critical.
[2023-03-12 14:29] LABS: Reflex Lactate? 2 Y
== END 2023-03-12 13:14 | disposition home or self-care (01) | DRG 190 ==
LOC: HO.ED 05:03 → HO.EDOVER 05:14 → HO.S3 16:44
PROVIDERS: Admitting Provider Student in an Organized Health Care Education/Training Program; Emergency Provider Student in an Organized Health Care Education/Training Program; PCP Internal Medicine; Visit Provider Physician Assistant Medical
DX: J44.1 Chronic obstructive pulmonary disease with (acute) exacerbation (principal); J96.01 Acute respiratory failure with hypoxia; E87.21 Acute metabolic acidosis; Z66 Do not resuscitate; N40.0 Benign prostatic hyperplasia without lower urinary tract symptoms; E78.2 Mixed hyperlipidemia; K21.9 Gastro-esophageal reflux disease without esophagitis; I10 Essential (primary) hypertension; Z20.822 Contact with and (suspected) exposure to COVID-19; Z87.891 Personal history of nicotine dependence; Z79.899 Other long term (current) drug therapy
CPT/HCPCS: 36415; 71045; 80048; 80053; 82803; 83605; 85007; 85025; 85027; 87040; 87502; 87635; 93005; 99285; J1650; J2920; J7120

== ENCOUNTER → 2023-03-11 03:21 | Outpatient (BNV) | payer MEDICARE, SELFPAY | PROVIDERS: Emergency Provider Student in an Organized Health Care Education/Training Program; PCP Internal Medicine; Visit Provider Student in an Organized Health Care Education/Training Program | DX: J44.1 Chronic obstructive pulmonary disease with (acute) exacerbation (principal) | CPT/HCPCS: 99222; 99239; 99499 ==

== ENCOUNTER 2023-04-05 11:26 | Outpatient (REF) | payer MEDICARE, SELFPAY ==
[2023-04-05 13:25] LABS: MANUAL DIFF FLAG NO
[2023-04-05 13:42] LABS: Basophils Percent Auto 0.4 % (0-2); Eosinophils Absolute Auto 0.1 X10*3/uL (0.0-0.4); Hematocrit 38.2 % (42.0-52.0); Hemoglobin 13.1 g/dl (14.0-18.0); Imm Gran Abs Auto 0.03 X10*3/uL (0.00-0.03); Imm Gran Pct Auto 0.4 % (0.0-0.4); Lymphocytes Absolute Auto 1.7 X10*3/uL (1.2-4.9); Lymphocytes Percent Auto 23.5 % (20-40); Mean Corpuscular HGB Conc 34.3 g/dl (31.0-36.0); Mean Corpuscular Hemoglobin 33.7 pg (27.0-33.0); Mean Corpuscular Volume 98.2 fL (80.0-98.0); Mean Platelet Volume 10.7 fL (9.4-12.4); Monocytes Absolute Auto 0.8 X10*3/uL (0.1-1.2); Neutrophils Absolute Auto 4.5 x10*3/uL (2.0-8.3); Neutrophils Percent Auto 62.7 % (45-73); Platelet Count 294 X10*3/uL (160-400); Red Blood Count 3.89 X10*6/uL (4.60-5.80); Red Cell Distribution Width 12.1 % (11.0-16.0); White Blood Count 7.2 X10*3/uL (4.8-10.8)
[2023-04-05 14:11] LABS: Anion Gap 13 (12-20); Blood Urea Nitrogen 13 mg/dL (9-16); Calcium 9.1 mg/dL (8.4-10.2); Carbon Dioxide 26 mmol/L (22-29); Chloride 107 mmol/L (96-108); Estimated Glomerular Filt Rate > 60; Glucose Random 109 mg/dL (60-115); Iron 174 mcg/dL (45-160); Percent Iron Saturation 58 % (15-50); Potassium 4.2 mmol/L (3.3-5.1); Sodium 142 mmol/L (135-145); Total Iron Binding Capacity 299 mcg/dL (228-428); Unsaturated Iron Binding 125 ug/dL
== END 2023-04-05 11:27 | disposition home or self-care (01) ==
LOC: HO.10HDL 11:26
PROVIDERS: Visit Provider Internal Medicine
DX: D64.9 Anemia, unspecified (principal); J44.9 Chronic obstructive pulmonary disease, unspecified; I10 Essential (primary) hypertension
CPT/HCPCS: 36415; 80048; 83540; 85025

== ENCOUNTER 2023-05-23 20:44 | Inpatient (IN) | payer MEDICARE, SELFPAY ==
--- NOTE | ~2023-05-23 | XR_ITS ---
EXAMINATION: XR CHEST CLINICAL INFORMATION: SOB COMPARISON: Chest 03/11/2023 TECHNIQUE: Frontal view of the chest was obtained. FINDINGS: No significant abnormality is noted involving the heart, lungs, mediastinum, bony thorax or soft tissues. XR/XR chest 1V IMPRESSION: Unremarkable chest examination.
[2023-05-23 20:52] VITALS: BP 170/80; BP 181/113; PULSE 124; PULSE 130; RESP 20; TEMP 36.8; O2SAT 84; O2SAT 98; BMI 29.0
--- NOTE | 2023-05-23 20:55 | ED.SOB ---
HPI - SOB/Dyspnea General Chief Complaint: Dyspnea Stated Complaint: sudden onset sob x2h, hx copd, 84% on RA, 98% neb Time Seen by Provider: 05/23/23 20:55 Source: patient Mode of arrival: EMS Limitations: no limitations History of Present Illness HPI Narrative: Patient's history of COPD was in good health 2 hours prior to arrival started having shortness of breath EMS found him 84% at room air patient use nebulizer treatment at home without much response was given DuoNeb by EMS history of same in the past lasted ER arrival was 3 months ago no intubation has used CPAP in the past Related Data Home Medications Medication Instructions Recorded Confirmed multivitamin 1 tab PO DAILY 01/31/21 03/11/23 omeprazole 20 mg capsule,delayed 20 mg PO DAILY@0630 01/31/21 03/11/23 release albuterol sulfate 2.5 mg/3 mL 2.5 mg inhalation TID PRN 03/11/23 03/11/23 (0.083 %) solution for nebulization Shortness Of Breath Or Wheezing albuterol sulfate 90 mcg/actuation 2 puff inhalation BID@0900,1500 03/11/23 05/24/23 aerosol inhaler PRN wheezing amlodipine 2.5 mg tablet 2.5 mg PO DAILY 03/11/23 05/24/23 atorvastatin 10 mg tablet 10 mg PO DAILY 03/11/23 05/24/23 doxazosin 2 mg tablet 2 mg PO BEDTIME 03/11/23 05/24/23 ipratropium bromide 0.02 % 2.5 ml inhalation Q6H PRN wheezing 03/11/23 03/11/23 solution for inhalation losartan 50 mg tablet 50 mg PO BID 03/11/23 05/24/23 umeclidinium 62.5 mcg-vilanterol 1 ea inhalation BEDTIME 03/11/23 03/11/23 25 mcg/actuation powdr for inhalation (Anoro Ellipta) atorvastatin 10 mg tablet 10 mg PO DAILY 05/24/23 05/24/23 Previous Rx's Medication Instructions Recorded inhalational spacing device #10 ea 12/01/21 (Aerochamber MV spacer) prednisone 20 mg tablet 40 mg (2 x 20 mg) PO DAILY 5 days 03/12/23 #10 tabs Allergies Allergy/AdvReac Type Severity Reaction Status Date / Time No Known Allergies Allergy Verified 03/11/23 02:47 Review of Systems Review of Systems: Yes all other systems are reviewed and are negative [facility] Past Medical History Medical History Asthma exacerbation Chronic lung disease GERD (gastroesophageal reflux disease) HLD (hyperlipidemia) COPD exacerbation Hypertension Hypertension Surgical History History of appendectomy Social History Social History Household Members: Family Household Members Other:: daughter lives next door Housing: Apartment Do you presently have visiting nurse or other home services: No Alcohol intake: current Alcohol intake frequency: a few times a week Alcohol type: beer Patient Tobacco Use Status: Former Tobacco user Quit Date: 2 months ago Tobacco use type: Cigarette Cigarette Packs Per Day: 1 Cigarettes Per Day: 20.0 Years Smoked: 50 Smoked in Last 30 Days: No e-Cigarette/Vaping Use: Never Used Second Hand Smoke Exposure: No Use of substances other than those prescribed or required for medical reasons: Yes Advance Directives: Yes Advance Directives on File: Yes Advance Directives Date on File: 02/26/22 service: No Current occupational status: employed Physical Exam Vital Signs: Vital Signs: Last Vital Signs Temp 98.4 F 05/23/23 21:50 Pulse 115 H 05/23/23 23:47 Resp 25 H 05/23/23 23:47 BP 153/79 H 05/23/23 21:50 Pulse Ox 99 05/23/23 21:50 O2 Del Method Aerosol Mask 05/23/23 21:50 Oxygen Flow Rate 6 05/23/23 20:52 BMI result Body Mass Index 29.0 Appearance: Alert. Oriented X3. In moderate respiratory distress Eyes: No pallor or icterus ENT: Pharynx normal. Oral Mucosa moist Neck: Normal inspection. Neck supple. CVS: Tachycardic regular rhythm Pulses normal. Respiratory: Moderate respiratory distress. Equal air entry bilateral, bilateral wheezing no rales Abdomen: Soft and nontender. Bowel sounds are present, Skin: Skin warm and dry. Normal skin color. Normal skin turgor. Extremities: No lower extremity edema. No calf tenderness Neuro: Oriented X 3. No motor deficit. Medications Administered Discontinued Medications Generic Name Dose Route Start Last Admin Trade Name [place] PRN Reason Stop Dose Admin Levalbuterol HCl 5 mg/ 0 mg 05/23/23 20:57 05/23/23 20:59 Ipratropium [place] 0.5 mg INHALE 05/23/23 20:58 1.25 dose ONCE ONE Administration Levalbuterol HCl 3.75 mg/ 0 mg 05/23/23 23:39 05/23/23 23:44 Ipratropium [place] 0.5 mg INHALE 05/23/23 23:40 11.5 dose ONCE ONE Administration Magnesium Sulfate 2 gm in 50 mls @ 150 mls/hr 05/23/23 20:59 05/23/23 22:24 Magnesium Sulfate/H2o IV 05/23/23 21:18 Infused ONCE ONE Infusion Sodium Chloride 1,000 mls @ 999 mls/hr 05/23/23 21:00 05/23/23 22:37 Ns IV 05/23/23 22:00 Infused .Q1H1M ONE Infusion Methylprednisolone Sodium Succinate 125 mg 05/23/23 20:59 05/23/23 21:09 Methylprednisolone Sod Succ 125 Mg/2 Ml Vial IVPUSH 05/23/23 21:00 125 mg ONCE ONE Administration Medical Decision Making Medical Decision Making [facility] Narrative: Patient with chronic lung disease/COPD comes here for increased shortness of breath no signs of infection at this time normal lactic acid level normal CBC improved after some IV steroids and nebulizing treatment will admit patient for COPD/chronic bronchitis patient is still requiring 2 L of oxygen to keep pulse ox above 90 Differential Diagnosis Differential Diagnoses: The differential diagnosis associated with the presentation includes COPD/pneumonia/viral Admission/Observation Consideration of admission/observation: Escalation of care including admission/observation considered Consult Healthcare Provider Management of the patient was discussed with: Hospitalist Lab Data MDM Lab Attestation statement: I reviewed the patient's lab results. 05/23/23 21:13 05/23/23 21:13 Labs: Lab Results 05/23/23 05/23/23 05/23/23 Range/Units 21:13 21:14 21:49 WBC 7.9 (4.8-10.8) X10*3/uL RBC 3.93 L (4.60-5.80) X10*6/uL Hgb 13.0 L (14.0-18.0) g/dl Hct 38.2 L (42.0-52.0) % MCV 97.2 (80.0-98.0) fL MCH 33.1 H (27.0-33.0) pg MCHC 34.0 (31.0-36.0) g/dl RDW 11.8 (11.0-16.0) % Plt Count 209 D (160-400) X10*3/uL MPV 10.4 (9.4-12.4) fL Immature Gran % (Auto) 0.4 (0.0-0.4) % Neut % (Auto) 65.3 (45-73) % Lymph % (Auto) 21.2 (20-40) % [place] % (Auto) 9.7 (2-11) % Eos % (Auto) 2.9 (0-4) % Baso % (Auto) 0.5 (0-2) % Lymph # (Auto) 1.7 (1.2-4.9) X10*3/uL [place] # (Auto) 0.8 (0.1-1.2) X10*3/uL Eos # (Auto) 0.2 (0.0-0.4) X10*3/uL Baso # (Auto) 0.0 (0.0-0.2) X10*3/uL Abs Immat Gran (auto) 0.03 (0.00-0.03) X10*3/uL Absolute Neuts (auto) 5.2 (2.0-8.3) x10*3/uL Absolute Nucleated RBC 0.000 (0.0-0.012) X10*3/uL Nucleated RBC % (auto) 0.0 (0.0-0.2) /100WBC Sodium 140 (135-145) mmol/L Potassium 4.0 (3.3-5.1) mmol/L Chloride 106 (96-108) mmol/L Carbon Dioxide 24 (22-29) mmol/L Anion Gap 14 (12-20) BUN 13 (9-16) mg/dL Creatinine 1.01 (0.5-1.4) mg/dL Estim Creat Clear Calc 76.1 Estimated GFR > 60 Random Glucose 126 H (60-115) mg/dL Lactic Acid 1.3 (0.5-2.0) mmol/L Calcium 8.8 (8.4-10.2) mg/dL Total Bilirubin 0.4 (0.0-1.0) mg/dL AST 20 (5-37) U/L ALT 21 (0-40) U/L Alkaline Phosphatase 62 (39-117) U/L Troponin I High Sens 3.7 (<3.5-35.0) ng/L B-Natriuretic Peptide 49 (<100) pg/mL Total Protein 6.8 (6.5-8.0) g/dL Albumin 4.0 (3.5-5.0) g/dL COVID-19 (GWYN) Negative (Negative) COVID-19 Clin Com See Note Independent Interpretation I performed an independent interpretation of an: EKG Interpretation: Sinus tachycardia heart rate 114 beats per minute normal interval normal axis no acute ST wave changes no acute ischemia Discharge Plan Discharge Clinical Impression: Acute and chronic respiratory failure with hypoxia, Chronic obstructive lung disease Patient Disposition: Admitted As Inpatient
[2023-05-23 20:57] VITALS: BP 181/113; PULSE 124; RESP 20; TEMP 36.8; O2SAT 98
[2023-05-23] MEDS: levalbuterol HCL 5 MG, Ipratropium Bromide 0.5 MG INHALE (20:59)
[2023-05-23 21:00] VITALS: PULSE 130; RESP 24; O2SAT 94
--- NOTE | 2023-05-23 21:01 | ECG_ITS ---
Test Reason : sob Blood Pressure : / mmHG Vent. Rate : 114 BPM Atrial Rate : 114 BPM P-R Int : 138 ms QRS Dur : 102 ms QT Int : 356 ms P-R-T Axes : 085 084 058 degrees QTc Int : 490 ms Sinus tachycardia Possible Left atrial enlargement Borderline ECG When compared with ECG of 11-MAR-2023 02:55, No significant change was found Referred By: Pranav Ojeda Electronically Signed By:DARON BATES MD
[2023-05-23] MEDS: 0.9 % Sodium Chloride 1,000 ML 999 ML IV (21:09)
[2023-05-23] MEDS: methylPREDNISolone Sod Succ 125 MG/2 ML VIAL IVPUSH (21:09)
[2023-05-23] MEDS: Magnesium Sulfate/H2O 2 GM/50 ML PIGGYBACK IV (21:09)
[2023-05-23 21:19] LABS: MANUAL DIFF FLAG NO
[2023-05-23 21:20] LABS: Basophils Percent Auto 0.5 % (0-2); Eosinophils Absolute Auto 0.2 X10*3/uL (0.0-0.4); Eosinophils Percent Auto 2.9 % (0-4); Hematocrit 38.2 % (42.0-52.0); Imm Gran Abs Auto 0.03 X10*3/uL (0.00-0.03); Imm Gran Pct Auto 0.4 % (0.0-0.4); Lymphocytes Absolute Auto 1.7 X10*3/uL (1.2-4.9); Lymphocytes Percent Auto 21.2 % (20-40); Mean Corpuscular Hemoglobin 33.1 pg (27.0-33.0); Mean Corpuscular Volume 97.2 fL (80.0-98.0); Mean Platelet Volume 10.4 fL (9.4-12.4); Monocytes Absolute Auto 0.8 X10*3/uL (0.1-1.2); Monocytes Percent Auto 9.7 % (2-11); Neutrophils Absolute Auto 5.2 x10*3/uL (2.0-8.3); Neutrophils Percent Auto 65.3 % (45-73); Platelet Count 209 X10*3/uL (160-400); Red Blood Count 3.93 X10*6/uL (4.60-5.80); Red Cell Distribution Width 11.8 % (11.0-16.0); White Blood Count 7.9 X10*3/uL (4.8-10.8)
[2023-05-23 21:31] LABS: Lactic Acid 1.3 mmol/L (0.5-2.0)
[2023-05-23 21:36] LABS: Alanine Aminotransferase 21 U/L (0-40); Alkaline Phosphatase 62 U/L (39-117); Anion Gap 14 (12-20); Aspartate Amino Transferase 20 U/L (5-37); Bilirubin Total 0.4 mg/dL (0.0-1.0); Blood Urea Nitrogen 13 mg/dL (9-16); Calcium 8.8 mg/dL (8.4-10.2); Carbon Dioxide 24 mmol/L (22-29); Chloride 106 mmol/L (96-108); Creatinine Clr Calc Pharmacy 76.1; Estimated Glomerular Filt Rate > 60; Glucose Random 126 mg/dL (60-115); Sodium 140 mmol/L (135-145); Total Protein 6.8 g/dL (6.5-8.0)
[2023-05-23 21:41] LABS: B Type Natriuretic Peptide 49 pg/mL (<100)
[2023-05-23 21:42] LABS: Troponin-I High Sensitivity 3.7 ng/L (<3.5-35.0)
[2023-05-23 21:50] VITALS: BP 153/79; PULSE 113; RESP 20; TEMP 36.9; O2SAT 99
--- NOTE | 2023-05-23 21:51 | MHC.EDTECH ---
PATIENT EKG TAKEN AND WAS READ BY PROVIDER ,VITALS TAKEN ,2ND SETS OF BLOOD CULTURE DRAWN AND COVID SWAB COLLECTED AND SENT TO LAB .
[2023-05-23 22:14] LABS: COVID-19 Test Negative (Negative); IDNOW Serial# 6674DD1D
--- NOTE | 2023-05-23 23:35 | MHC.EDTECH ---
Patient refused to change his pants at this time .
[2023-05-23] MEDS: levalbuterol HCL 3.75 MG, Ipratropium Bromide 0.5 MG INHALE (23:44)
[2023-05-23 23:47] VITALS: PULSE 115; RESP 25; O2SAT 91
--- NOTE | 2023-05-24 00:33 | PM.IMHP ---
History of Present Illness Date of Service: 05/24/23 Attending physician on admission: Umer Navas Chief Complaint: Shortness of breaths Kavon Parnell is a very pleasant 67 years old man with past medical history significant for COPD -home O2 as needed, hyperlipidemia and hypertension was brought to the emergency department via EMS complaining of worsening shortness of breath that started today. He denied any associated chest pain, cough, fever or chills. He did not report any headache, dizziness or palpitations. He denied any gastrointestinal or genitourinary symptoms. He denied edema to the lower extremities. He is a former tobacco smoker. In the ED, he was found to have significant tachycardia, sinus; and tachypnea. He was initially placed on a non-rebreather mask. There is no fever. He is now requiring 4 L/min supplemental oxygen. Blood workup showed no leukocytosis. Lactic acid is normal. LFTs and renal function are normal. BNP is normal. There are no electrolyte imbalances. COVID-19 test is negative. ED tx: Xopenex nebs, Solu-Medrol 125 mg IV, NS 1 L bolus, magnesium 2 g IV. Review of Systems Review of Systems: All 12 systems were reviewed and normal except as noted in HPIGiselle DUGAN Medical History (Updated 05/24/23 @ 01:08 by Umer Navas MD) On home O2 Chronic lung disease GERD (gastroesophageal reflux disease) HLD (hyperlipidemia) COPD exacerbation Hypertension Hypertension Surgical History History of appendectomy Social History Household Members: Family Household Members Other:: daughter lives next door Housing: Apartment Do you presently have visiting nurse or other home services: No Alcohol intake: current Alcohol intake frequency: a few times a week Alcohol type: beer Patient Tobacco Use Status: Former Tobacco user Quit Date: 2 months ago Tobacco use type: Cigarette Cigarette Packs Per Day: 1 Cigarettes Per Day: 20.0 Years Smoked: 50 Smoked in Last 30 Days: No e-Cigarette/Vaping Use: Never Used Second Hand Smoke Exposure: No Use of substances other than those prescribed or required for medical reasons: Yes Advance Directives: Yes Advance Directives on File: Yes Advance Directives Date on File: 02/26/22 service: No Current occupational status: employed Meds Allergies Allergy/AdvReac Type Severity Reaction Status Date / Time No Known Allergies Allergy Verified 03/11/23 02:47 Active Medications: Current Medications Acetaminophen (Acetaminophen 325 Mg Tablet) 650 mg PO Q6H PRN PRN Reason: Pain, Mild (Pain Scale 1-3) Albuterol/Ipratropium (Albuterol/Iprat 2.5/0.5mg 3 Ml Ampul.Neb) 3 ml INHALE RQ4H WHILE AWAKE [place] Amlodipine Besylate (Amlodipine Besylate 2.5 Mg Tablet) 2.5 mg PO DAILY [place]; Protocol Atorvastatin Calcium (Atorvastatin Calcium 10 Mg Tablet) 10 mg PO BEDTIME [place] Atorvastatin Calcium (Atorvastatin Calcium 10 Mg Tablet) 10 mg PO DAILY [place] Doxazosin Mesylate (Doxazosin Mesylate 2 Mg Tablet) 2 mg PO BEDTIME [place]; Protocol Guaifenesin/Codeine Phosphate (Guaifen/Codeine Sf 200/20/10ml 10 Ml Liquid) 10 ml PO TID PRN PRN Reason: cough Heparin Sodium (Porcine) (Heparin Sodium,Porcine 5,000 Unit/Ml Vial) 5,000 unit SUBCUT Q8H [facility] Azithromycin 500 mg/ Sodium (Chloride) 250 mls @ 125 mls/hr IV Q24H [place] Losartan Potassium (Losartan Potassium 50 Mg Tablet) 50 mg PO BID [place]; Protocol Melatonin (Melatonin 3 Mg Tablet) 6 mg PO BEDTIME PRN PRN Reason: Insomnia Methylprednisolone Sodium Succinate (Methylprednisolone Sod Succ 40 Mg/Ml Vial) 40 mg IVPUSH Q12H [facility] Sodium Chloride (0.9 % Sodium Chloride Flush 3 Ml Syringe) 3 ml IVFLUSH QSHIFT [facility] Home Medications Medication Instructions Recorded Confirmed Last Taken Type multivitamin 1 tab PO DAILY 01/31/21 03/11/23 01/03/23 History omeprazole 20 mg capsule,delayed 20 mg PO DAILY@0630 01/31/21 03/11/23 01/03/23 History release albuterol sulfate 2.5 mg/3 mL 2.5 mg inhalation TID PRN 03/11/23 03/11/23 Unknown History (0.083 %) solution for nebulization Shortness Of Breath Or Wheezing albuterol sulfate 90 mcg/actuation 2 puff inhalation BID@0900,1500 03/11/23 05/24/23 Unknown History aerosol inhaler PRN wheezing amlodipine 2.5 mg tablet 2.5 mg PO DAILY 03/11/23 05/24/23 Unknown History atorvastatin 10 mg tablet 10 mg PO DAILY 03/11/23 05/24/23 Unknown History doxazosin 2 mg tablet 2 mg PO BEDTIME 03/11/23 05/24/23 Unknown History ipratropium bromide 0.02 % 2.5 ml inhalation Q6H PRN wheezing 03/11/23 03/11/23 Unknown History solution for inhalation losartan 50 mg tablet 50 mg PO BID 03/11/23 05/24/23 Unknown History umeclidinium 62.5 mcg-vilanterol 1 ea inhalation BEDTIME 03/11/23 03/11/23 Unknown History 25 mcg/actuation powdr for inhalation (Anoro Ellipta) atorvastatin 10 mg tablet 10 mg PO DAILY 05/24/23 05/24/23 Unknown History Physical Exam Vital Signs and Narrative: Vital Signs: Last Vital Signs Temp 98.4 F 05/23/23 21:50 Pulse 115 H 05/23/23 23:47 Resp 25 H 05/23/23 23:47 BP 153/79 H 05/23/23 21:50 Pulse Ox 99 05/23/23 21:50 O2 Del Method Aerosol Mask 05/23/23 21:50 Oxygen Flow Rate 6 05/23/23 20:52 BMI result Body Mass Index 29.0 Constitutional - Awake and Alert, No apparent distress. Very pleasant. Cooperative. Receiving breathing (xopenex) tx. HEENT - Normocephalic. Atraumatic. Pupils equally round. No sclera icterus. Heart - tachycardia normal rhythm. Respiratory - Normal lung expansion, Normal respiratory effort, No respiratory distress. Tachypneic. No use of accessory muscles. Bilateral inspiratory wheezing. Gastrointestinal - NT / ND; +BS; No rebound or guarding Extremities - No calf tenderness bilaterally, no swelling Musculoskeletal - Normal inspection, normal ROM Skin - Warm/Dry Neurological - Alert & oriented x3, CN II-XII in tact. Psychological - Appropriate affect Results Labs 05/23/23 21:13 05/23/23 21:13 Labs: Laboratory Results - last 24 hr 05/23/23 05/23/23 05/23/23 21:13 21:14 21:49 MCV 97.2 MCH 33.1 H MCHC 34.0 RDW 11.8 Plt Count 209 D MPV 10.4 Immature Gran % (Auto) 0.4 Neut % (Auto) 65.3 Lymph % (Auto) 21.2 [place] % (Auto) 9.7 Eos % (Auto) 2.9 Baso % (Auto) 0.5 Lymph # (Auto) 1.7 [place] # (Auto) 0.8 Eos # (Auto) 0.2 Baso # (Auto) 0.0 Abs Immat Gran (auto) 0.03 Absolute Neuts (auto) 5.2 Absolute Nucleated RBC 0.000 Nucleated RBC % (auto) 0.0 Anion Gap 14 Estim Creat Clear Calc 76.1 Estimated GFR > 60 Random Glucose 126 H Lactic Acid 1.3 Calcium 8.8 Total Bilirubin 0.4 AST 20 ALT 21 Alkaline Phosphatase 62 B-Natriuretic Peptide 49 Total Protein 6.8 Albumin 4.0 COVID-19 ([facility]) Negative COVID-19 Clin Com See Note Imaging Radiologist's Impressions: Impressions Chest X-Ray 05/23/23 21:10 IMPRESSION: Unremarkable chest examination. Assessment and Plan (1) Acute exacerbation of chronic obstructive pulmonary disease (COPD): Status: Acute (2) Hypoxic respiratory failure: Qualifiers: Chronicity: acute Qualified Code(s): J96.01 - Acute respiratory failure with hypoxia Status: Acute Plan Kavon Parnell is a 67 years old man admitted with: Hypoxic respiratory failure secondary to acute exacerbation of chronic obstructive pulmonary disease. Admit to hospitalist service. Continue supplemental oxygen via nasal cannula to keep oxygen saturation above 90%. Continue Bronchodilator therapy and IV steroids. Empiric IV antibiotic therapy with azithromycin. Essential hypertension. Continue losartan and amlodipine. Hyperlipidemia. Continue statin. BPH. Continue doxazosin. GERD. Continue omeprazole. DVT prophylaxis: Heparin subcut Code status: Full Patient will need hospitalization for at least 2 midnights for hypoxic respiratory treatment secondary to COPD exacerbation treatment with supplemental oxygen, IV antibiotics, IV steroids and bronchodilator therapy. Quality Stroke Does the patient have a stroke diagnosis?: No VTE Prior VTE?: No VTE Risk Level:: Medical - moderate - high VTE Device Contraindication: Treatment Not Indicated VTE Drug Contraindication: N/A - Med Ordered
[2023-05-24] MEDS: Azithromycin 500 MG in 0.9 % Sodium Chloride 250 ML 125 MG IV (01:03)
[2023-05-24 01:18] VITALS: BP 148/70; PULSE 117; RESP 21; TEMP 36.8; O2SAT 96
[2023-05-24 03:13] VITALS: BP 157/64; PULSE 94; RESP 20; TEMP 36.1; O2SAT 94
[2023-05-24 07:05] VITALS: BP 169/79; PULSE 98; RESP 20; TEMP 36.2; O2SAT 96
[2023-05-24 07:21] LABS: Basophils Percent Auto 0.1 % (0-2); Eosinophils Percent Auto 0.1 % (0-4); Hematocrit 36.4 % (42.0-52.0); Hemoglobin 12.5 g/dl (14.0-18.0); Imm Gran Abs Auto 0.04 X10*3/uL (0.00-0.03); Imm Gran Pct Auto 0.5 % (0.0-0.4); Lymphocytes Absolute Auto 0.6 X10*3/uL (1.2-4.9); Lymphocytes Percent Auto 6.9 % (20-40); MANUAL DIFF FLAG SCAN; Mean Corpuscular HGB Conc 34.3 g/dl (31.0-36.0); Mean Corpuscular Volume 98.9 fL (80.0-98.0); Mean Platelet Volume 11.6 fL (9.4-12.4); Monocytes Absolute Auto 0.1 X10*3/uL (0.1-1.2); Monocytes Percent Auto 0.9 % (2-11); Neutrophils Absolute Auto 7.4 x10*3/uL (2.0-8.3); Neutrophils Percent Auto 91.5 % (45-73); Platelet Count 199 X10*3/uL (160-400); Red Blood Count 3.68 X10*6/uL (4.60-5.80); Red Cell Distribution Width 11.7 % (11.0-16.0); SCAN SMEAR FLAG 1; White Blood Count 8.1 X10*3/uL (4.8-10.8)
[2023-05-24 07:30] LABS: Alanine Aminotransferase 20 U/L (0-40); Alkaline Phosphatase 55 U/L (39-117); Anion Gap 17 (12-20); Aspartate Amino Transferase 18 U/L (5-37); Bilirubin Total 0.4 mg/dL (0.0-1.0); Blood Urea Nitrogen 15 mg/dL (9-16); Calcium 8.7 mg/dL (8.4-10.2); Carbon Dioxide 19 mmol/L (22-29); Chloride 109 mmol/L (96-108); Creatinine Clr Calc Pharmacy 76.9; Estimated Glomerular Filt Rate > 60; Glucose Random 171 mg/dL (60-115); Potassium 4.2 mmol/L (3.3-5.1); Sodium 141 mmol/L (135-145); Total Protein 6.5 g/dL (6.5-8.0)
[2023-05-24 08:06] LABS: SLIDE REVIEW VERIFIED
[2023-05-24] MEDS: Albuterol/Iprat 2.5/0.5MG 3 ML AMPUL.NEB INHALE ×2 (08:15→11:10)
[2023-05-24 08:18] VITALS: PULSE 98; RESP 20; O2SAT 93
--- NOTE | 2023-05-24 08:55 | PHA.MEDREC ---
Pharmacy Consult ? Medication Reconciliation Pharmacy has completed the medication reconciliation. Interviewed patient who had list on their phone, patient was able to tell me dose and frequencies. Asked patient if he takes a red inhaler, patient stated no he only takes a blue L (ventolin) daily.
[2023-05-24] MEDS: amLODIPine Besylate 2.5 MG TABLET PO (09:30)
[2023-05-24] MEDS: Losartan Potassium 50 MG TABLET PO (09:30)
[2023-05-24] MEDS: predniSONE 20 MG TABLET PO (09:30)
[2023-05-24] MEDS: Omeprazole 20 MG CAPSULE.DR PO (09:30)
[2023-05-24 11:11] VITALS: PULSE 100; RESP 20; O2SAT 93
--- NOTE | 2023-05-24 11:15 | PM.DS ---
DS: Providers Provider Date of Service: 05/24/23 Date of admission: 05/24/23 00:17 Primary care physician: Feliberto Britt MD DS: Diagnosis Discharge Diagnosis (1) Acute exacerbation of chronic obstructive pulmonary disease (COPD): Status: Acute (2) Hypoxic respiratory failure: Status: Acute DS: Summary Hospital Course Hospital Course: This 67 yo M with past medical history of COPD on home O2 prn, HLD, HTN, BPH, and GERD presented to the ED on 05/23/23 complaining of SOB with no associated cough, CP, cough, fever/chills. In the ED patient was tachycardic and tachypneic. Work up showed no leukocytosis, lactic acid within normal limits at 1.3, BNP normal at 49, and CMP normal. Covid-19 test was negative. In ED he was treated with Xopenex via nebulizer, solu-medrol 125mg IV, IVF, and magnesium 2g IV. He was admitted on 4L nasal cannula and received azithromycin 500mg empirically. Patient is feeling 100% back to normal this morning and satting at 96% on 2L via nasal cannula. Will discharge home with prednisone 40mg PO QD for 3 days (5 total days of steroids) and azithromycin 250mg PO QD x 3 days (for 5 total days of antibiotic treatment), O2 at home as needed. Status at Discharge Functional status at discharge: independent ambulation Overall status at discharge: patient is back to baseline Time Attestation Discharge coordination time: Greater than 30 minutes Quality: Safe Use of Opioids Does Pt have an Active Cancer Diagnosis on the Problem List?: No Quality: Stroke Does the patient have a stroke diagnosis?: No Physical Exam Vital Signs: Vital Signs: Last Vital Signs Temp 97.2 F 05/24/23 07:05 Pulse 100 05/24/23 11:11 Resp 20 05/24/23 11:11 BP 169/79 H 05/24/23 07:05 Pulse Ox 96 05/24/23 07:05 O2 Del Method Nasal Cannula 05/24/23 07:05 O2 Flow Rate 3 05/24/23 07:05 Oxygen Flow Rate 6 05/23/23 20:52 BMI result Body Mass Index 29.0 General: A&Ox3, resting comfortably CVS: Regular rate and rhythm, no murmurs, no LE edema Pulm: No rales, rhonchi, wheezing. Normal respiratory effort, no accessory muscle use. Abd: Soft, non-tender, non-distended Psych: appropriate affect DS: Data Data Completed and Pending Completed studies during hospitalization [Text1]: Procedures Assistance with Respiratory Ventilation, Less than 24 Consecutive Hours, Continuous Positive Airway Pressure (09/22/22) Labs on day of discharge: Laboratory Results - last 24 hr 05/23/23 05/23/23 05/23/23 21:13 21:14 21:49 WBC 7.9 RBC 3.93 L Hgb 13.0 L Hct 38.2 L MCV 97.2 MCH 33.1 H MCHC 34.0 RDW 11.8 Plt Count 209 D MPV 10.4 Immature Gran % (Auto) 0.4 Neut % (Auto) 65.3 Lymph % (Auto) 21.2 [place] % (Auto) 9.7 Eos % (Auto) 2.9 Baso % (Auto) 0.5 Lymph # (Auto) 1.7 [place] # (Auto) 0.8 Eos # (Auto) 0.2 Baso # (Auto) 0.0 Abs Immat Gran (auto) 0.03 Absolute Neuts (auto) 5.2 Absolute Nucleated RBC 0.000 Nucleated RBC % (auto) 0.0 Smear Tech's Comments Sodium 140 Potassium 4.0 Chloride 106 Carbon Dioxide 24 Anion Gap 14 BUN 13 Creatinine 1.01 Estim Creat Clear Calc 76.1 Estimated GFR > 60 Random Glucose 126 H Lactic Acid 1.3 Calcium 8.8 Magnesium Total Bilirubin 0.4 AST 20 ALT 21 Alkaline Phosphatase 62 Troponin I High Sens 3.7 B-Natriuretic Peptide 49 Total Protein 6.8 Albumin 4.0 COVID-19 ([facility]) Negative COVID-19 Clin Com See Note 05/24/23 06:08 WBC 8.1 RBC 3.68 L Hgb 12.5 L Hct 36.4 L MCV 98.9 H MCH 34.0 H MCHC 34.3 RDW 11.7 Plt Count 199 MPV 11.6 Immature Gran % (Auto) 0.5 H Neut % (Auto) 91.5 H Lymph % (Auto) 6.9 L [place] % (Auto) 0.9 L Eos % (Auto) 0.1 Baso % (Auto) 0.1 Lymph # (Auto) 0.6 L [place] # (Auto) 0.1 Eos # (Auto) 0.0 Baso # (Auto) 0.0 Abs Immat Gran (auto) 0.04 H Absolute Neuts (auto) 7.4 Absolute Nucleated RBC 0.000 Nucleated RBC % (auto) 0.0 Smear Tech's Comments VERIFIED Sodium 141 Potassium 4.2 Chloride 109 H Carbon Dioxide 19 L Anion Gap 17 BUN 15 Creatinine 1.00 Estim Creat Clear Calc 76.9 Estimated GFR > 60 Random Glucose 171 H Lactic Acid Calcium 8.7 Magnesium 2.0 Total Bilirubin 0.4 AST 18 ALT 20 Alkaline Phosphatase 55 Troponin I High Sens B-Natriuretic Peptide Total Protein 6.5 Albumin 4.0 COVID-19 ([facility]) COVID-19 Clin Com Discharge Plan Discharge Anticipated Discharge Date/Time: 05/24/23 11:29 Patient Disposition: Home, Self-Care Discharge Diagnosis: Acute exacerbation of COPD with bronchitics Referrals: Feliberto Britt MD [Primary Care Provider] - 1 Week Discharge Medications: New prednisone 20 mg tablet 40 mg PO DAILY Qty: 6 0RF azithromycin 250 mg tablet 250 mg PO DAILY 3 Days Qty: 3 0RF Rx Instructions: start on day 2 of therapy Continued multivitamin Tablet 1 tab PO DAILY omeprazole 20 mg Capsule,Delayed Release(Dr/Ec) 20 mg PO DAILY@0630 (DME) Aerochamber MV Spacer See Rx Instructions .Route Qty: 10 0RF Rx Instructions: As directed losartan 50 mg tablet 50 mg PO BID albuterol sulfate 2.5 mg /3 mL (0.083 %) solution for nebulization 2.5 mg inhalation TID PRN (Reason: Shortness Of Breath Or Wheezing) amlodipine 2.5 mg tablet 2.5 mg PO DAILY albuterol sulfate 90 mcg/actuation HFA aerosol inhaler 2 puff inhalation DAILY ipratropium bromide 0.02 % solution 2.5 ml inhalation Q6H PRN (Reason: wheezing) doxazosin 2 mg tablet 2 mg PO BEDTIME atorvastatin 10 mg tablet 10 mg PO DAILY Discharge Orders: Discharge Order (Routine); Ordered 05/24/23 Ordered By: Nabil Gale Diet: Advance to usual diet Activity on Discharge: As tolerated Stand Alone Forms: Patient Portal Discharge page Care Plan Goals: recovery from copd Health Concerns: copd, hypoxia Plan of Treatment: Take presnionse as directed, use inhalers and oxygen as needed; follow up with your doctor in a week, call for appointment, maintain smoking cessation Assessment: As above.
[2023-05-24 11:30] VITALS: BP 155/63; PULSE 107; RESP 20; TEMP 36.7; O2SAT 96
--- NOTE | 2023-05-24 12:15 | MHC.CM.PN ---
IMM 05/23/23, Pt has been medically cleared for DC. He will go home via private transport, DC plan is self care.
== END 2023-05-24 13:15 | disposition home or self-care (01) | DRG 190 ==
LOC: HO.ED 21:00 → HO.EDOVER 05-24 00:21 → HO.IMC 05-24 00:34
PROVIDERS: Admitting Provider Internal Medicine; Emergency Provider Internal Medicine; PCP Internal Medicine; Visit Provider Internal Medicine
DX: J44.1 Chronic obstructive pulmonary disease with (acute) exacerbation (principal); J96.01 Acute respiratory failure with hypoxia; I10 Essential (primary) hypertension; E78.5 Hyperlipidemia, unspecified; N40.0 Benign prostatic hyperplasia without lower urinary tract symptoms; K21.9 Gastro-esophageal reflux disease without esophagitis; Z20.822 Contact with and (suspected) exposure to COVID-19; Z99.81 Dependence on supplemental oxygen; Z87.891 Personal history of nicotine dependence; Z79.899 Other long term (current) drug therapy
CPT/HCPCS: 36415; 71045; 80053; 83605; 83735; 83880; 84484; 85025; 87040; 87635; 93005; 94640; 99285; J0456; J2930; J3475

== ENCOUNTER → 2023-05-23 21:01 | Outpatient (BNV) | payer MEDICARE, SELFPAY | PROVIDERS: Admitting Provider Internal Medicine; Emergency Provider Internal Medicine; PCP Internal Medicine; Visit Provider Internal Medicine Cardiovascular Disease | DX: R00.0 Tachycardia, unspecified (principal); R94.31 Abnormal electrocardiogram [ECG] [EKG] | CPT/HCPCS: 93010 ==

== ENCOUNTER → 2023-05-24 00:17 | Outpatient (BNV) | payer MEDICARE, SELFPAY | PROVIDERS: Admitting Provider Internal Medicine; Emergency Provider Internal Medicine; Visit Provider Internal Medicine | DX: J44.1 Chronic obstructive pulmonary disease with (acute) exacerbation (principal); J96.01 Acute respiratory failure with hypoxia | CPT/HCPCS: 99235; 99499 ==

== ENCOUNTER 2023-08-03 11:06 | Outpatient (AMB) | payer MEDICARE, SELFPAY ==
[2023-08-03 11:07] VITALS: BP 138/67; PULSE 111; O2SAT 95; BMI 25.7
--- NOTE | 2023-08-03 11:07 | MHC.OFFVIS ---
Intake Vital Signs 08/03/23 11:07 Height 5 ft 9 in Weight 174 lb 2.643 oz BMI 25.7 BP 138/67 Blood Pressure Location Rt brachial Position Sitting Pulse 111 H Pulse Source Doppler Pulse Oximetry (%) 95 Oxygen Delivery Method Room Air Intake Visit Reasons: COPD Allergies No Known Allergies Allergy (Verified 03/11/23 02:47) HPI COPD HPI Details 68-year-old gentleman, recent 50 pack-year smoker, quit 09/2022, now followed for severe COPD. He continues Anoro, ipratropium, and albuterol MDI with good control of his symptoms. He denies any recent exacerbations. Patient has completed his lung screening CT chest. [facility] Medical History (Updated 06/01/23 @ 00:03 by Dulce Robledo) On home O2 Chronic obstructive lung disease Chronic lung disease GERD (gastroesophageal reflux disease) HLD (hyperlipidemia) COPD exacerbation Hypertension Hypertension Surgical History History of appendectomy Social History Household Members: Family Household Members Other:: daughter lives next door Housing: Apartment Do you presently have visiting nurse or other home services: No Alcohol intake: current Alcohol intake frequency: a few times a week Alcohol type: beer Patient Tobacco Use Status: Former Tobacco user Quit Date: 2 months ago Tobacco use type: Cigarette Cigarette Packs Per Day: 1 Cigarettes Per Day: 20.0 Years Smoked: 50 e-Cigarette/Vaping Use: Never Used Second Hand Smoke Exposure: No Advance Directives Date on File: 02/26/22 service: No Current occupational status: employed Review of Systems Const Denies daytime sleepiness, Denies excessive sweating, Denies fatigue, Denies fever(s), Denies lethargy, Denies malaise, Denies night sweats, Denies snoring and Denies weight loss Eyes Denies blurry vision and Denies itchy eyes ENT Denies nasal congestion, Denies post nasal drip, Denies sinus pain, Denies sinus pressure and Denies other ( Thrush) Card Denies chest pain, Denies pedal edema, Denies dyspnea, Denies orthopnea and Denies paroxysmal nocturnal dyspnea Resp Denies cough, Denies hemoptysis, Denies excessive phlegm production, Denies dyspnea, Denies snoring and Denies wheezing GI Denies abdominal pain and Denies heartburn Musc Denies myalgias, Denies arthralgias and Denies joint swelling Skin/Breast Denies rash Neuro Denies memory loss and Denies seizure-like activity Psych Denies abnormal sleep pattern, Denies anxiety and Denies memory loss Endo Denies excessive sweating, Denies fatigue and Denies heat intolerance Mikey/Lymph Denies easy bruising Aller/Immun Denies itchy eyes, Denies seasonal rhinorrhea and Denies wheezing Physical Exam Vital Signs: Last Vital Signs Pulse 111 H 08/03/23 11:07 BP 138/67 08/03/23 11:07 Pulse Ox 95 08/03/23 11:07 Oxygen Delivery Method Room Air 08/03/23 11:07 BMI result Body Mass Index 25.7 Const General: no acute distress and alert Nutritional Appearance: not obese Orientation/consciousness: Other orientation findings ( oriented) HEENT Head: Yes atraumatic Eyes General: appearance normal, both eyes and all related structures Sclerae: sclerae normal EOM: EOMs intact bilaterally Neck Neck: Yes supple Lymphatic: no lymphadenopathy noted Resp Effort & Inspection: normal respiratory effort and no use of accessory muscles Auscultation: clear to auscultation bilaterally Cardio Rate: regular rate Rhythm: regular rhythm Heart sounds: no gallops, no murmurs and no rubs Skin General skin exam: other ( warm) Extrem General: No clubbing, No cyanosis and No edema Assessment & Plan Assessment & Plan (1) Severe chronic obstructive pulmonary disease: Code(s): J44.9 - Chronic obstructive pulmonary disease, unspecified Plan: Well controlled on current regimen of Anoro, ipratropium, and albuterol MDI. Continue current regimen. (2) Personal history of nicotine dependence: Code(s): Z87.891 - Personal history of nicotine dependence Plan: Results of lung screening CT chest reviewed. No worrisome pulmonary nodules. Continue with yearly screening. Next in June of 2024. Medications: New Anoro Ellipta 62.5-25 mcg/actuation (umeclidinium-vilanterol) 1 inh inhalation DAILY 30 days 1 ea 6RF NS Coding Level of Care Code Est Pt Level 4 (50120) Diagnoses Severe chronic obstructive pulmonary disease J44.9 Personal history of nicotine dependence Z87.891
== END 2023-08-03 11:18 | disposition home or self-care (01) ==
PROVIDERS: PCP Internal Medicine; Visit Provider Internal Medicine Pulmonary Disease
DX: J44.9 Chronic obstructive pulmonary disease, unspecified (principal); Z87.891 Personal history of nicotine dependence
CPT/HCPCS: 99214

== ENCOUNTER → 2023-08-03 11:06 | Outpatient (BNVA) | payer MEDICARE, SELFPAY | PROVIDERS: PCP Internal Medicine; Visit Provider Internal Medicine Pulmonary Disease | DX: J44.1 Chronic obstructive pulmonary disease with (acute) exacerbation (principal); Z87.891 Personal history of nicotine dependence; Z99.81 Dependence on supplemental oxygen | CPT/HCPCS: 99212 ==

== ENCOUNTER 2023-08-16 11:04 | Outpatient (REF) | payer MEDICARE, SELFPAY ==
--- NOTE | ~2023-08-16 | XR_ITS ---
EXAMINATION: XR FOOT, LEFT CLINICAL INFORMATION: Left foot and heel pain. COMPARISON: None available. TECHNIQUE: AP, lateral, and oblique views of the left foot. FINDINGS: Small plantar calcaneal spur. Tiny dorsal calcaneal spur. Radiopaque marker placed by the technologist to indicate the area of concern as indicated by the patient along the lateral aspect of the heel. Minimal degenerative changes at the first metatarsophalangeal joint. Small corticated ossicles along the medial aspect of the midfoot. Mild degenerative changes at the first tarsometatarsal joint XR/XR foot LT min 3V IMPRESSION: 1. Small plantar calcaneal spur. Tiny dorsal calcaneal spur. 2. Mild degenerative changes at the first tarsometatarsal joint. 3. Recommend follow-up imaging in 10-14 days if fracture is suspected. This study was presented today 08/16/2023 for interpretation. Stat results provided at this time as requested by referring provider.
== END 2023-08-16 11:05 | disposition home or self-care (01) ==
LOC: HO.XRAY 11:04
PROVIDERS: PCP Internal Medicine; Visit Provider Internal Medicine
DX: M79.672 Pain in left foot (principal)
CPT/HCPCS: 73630

== ENCOUNTER 2024-01-13 02:30 | Observation (INO) | payer MEDICARE, SELFPAY ==
[2024-01-13] VITALS (17 sets, daily range): BP systolic 117–170; BP diastolic 56–90; PULSE 86–112; RESP 14–25; TEMP 36.7–37.3; O2SAT 89–98; BMI 25.0; BMI 26.3
--- NOTE | 2024-01-13 | ECG_ITS ---
Test Reason : SOB Blood Pressure : / mmHG Vent. Rate : 103 BPM Atrial Rate : 103 BPM P-R Int : 140 ms QRS Dur : 096 ms QT Int : 350 ms P-R-T Axes : 084 086 056 degrees QTc Int : 458 ms Sinus tachycardia Possible Left atrial enlargement Borderline ECG When compared with ECG of 23-MAY-2023 21:33, No significant change was found Referred By: Generic ED Physician Electronically Signed By:ESE MORA
--- NOTE | ~2024-01-13 | XR_ITS ---
EXAMINATION: XR CHEST CLINICAL INFORMATION: Dyspnea. COMPARISON: May 23, 2023 TECHNIQUE: Frontal view of the chest was obtained. FINDINGS: No significant abnormality is noted involving the heart, lungs, mediastinum, bony thorax or soft tissues. XR/XR chest 1V IMPRESSION: Unremarkable examination. Electronically signed by: Albaro Del Rio MD 01/13/2024 03:38 AM EDT
[2024-01-13 03:02] LABS: MANUAL DIFF FLAG NO
[2024-01-13 03:04] LABS: Basophils Absolute Auto 0.1 X10*3/uL (0.0-0.2); Basophils Percent Auto 0.5 % (0-2); Eosinophils Absolute Auto 0.3 X10*3/uL (0.0-0.4); Eosinophils Percent Auto 2.3 % (0-4); Hematocrit 40.7 % (42.0-52.0); Hemoglobin 14.1 g/dl (14.0-18.0); Imm Gran Abs Auto 0.09 X10*3/uL (0.00-0.03); Imm Gran Pct Auto 0.7 % (0.0-0.4); Lymphocytes Percent Auto 15.2 % (20-40); Mean Corpuscular HGB Conc 34.6 g/dl (31.0-36.0); Mean Corpuscular Hemoglobin 34.4 pg (27.0-33.0); Mean Corpuscular Volume 99.3 fL (80.0-98.0); Mean Platelet Volume 10.2 fL (9.4-12.4); Monocytes Absolute Auto 0.8 X10*3/uL (0.1-1.2); Monocytes Percent Auto 6.3 % (2-11); Neutrophils Absolute Auto 9.6 x10*3/uL (2.0-8.3); Platelet Count 250 X10*3/uL (160-400); Red Cell Distribution Width 11.9 % (11.0-16.0); White Blood Count 12.8 X10*3/uL (4.8-10.8)
[2024-01-13] MEDS: Albuterol Sulfate 7.5 MG, Albuterol Sulfate (0.083%) 2.5 MG 10 MG INHALE (03:08)
[2024-01-13 03:17] LABS: Alanine Aminotransferase 25 U/L (0-40); Albumin Level 4.2 g/dL (3.5-5.0); Alkaline Phosphatase 56 U/L (39-117); Anion Gap 14 (12-20); Aspartate Amino Transferase 18 U/L (5-37); Bilirubin Total 0.5 mg/dL (0.0-1.0); Blood Urea Nitrogen 19 mg/dL (9-16); Calcium 9.5 mg/dL (8.4-10.2); Carbon Dioxide 29 mmol/L (22-29); Chloride 102 mmol/L (96-108); Creatinine Clr Calc Pharmacy 58.7; Estimated Glomerular Filt Rate > 60; Glucose Random 134 mg/dL (60-115); Potassium 3.8 mmol/L (3.3-5.1); Sodium 141 mmol/L (135-145)
[2024-01-13] MEDS: methylPREDNISolone Sod Succ 125 MG/2 ML VIAL IVPUSH (03:19)
[2024-01-13 03:28] LABS: Troponin-I High Sensitivity < 2.7 ng/L (<3.5-35.0)
[2024-01-13 03:30] LABS: Venous Blood Gas Refer to POC result
--- NOTE | 2024-01-13 03:30 | PC.NURSE ---
pt biba from home reporting sob onset 2329 hx copd has prn o2 felt need for it tonight, gave self 2 duonebs at home and 1 duoneb via ems. inspiratory expiratory wheezing on arrival. 20g IV to L. hand via ems. on arrival RT notified. 18g IV established to R. upper arm. labs and ekg obtained. pt changed to hospital gown and placed on continuous cardiac and o2 monitoring. MD aware of possible sepsis criteria. pt is axox4 speaking full clear sentences, denies cp/n/v/d. skin wpd. afebrile. call bentley within reach.
[2024-01-13 03:33] LABS: B Type Natriuretic Peptide 23 pg/mL (<100)
[2024-01-13 03:34] LABS: VBG Base Excess 4.1 mmol/L; VBG HCO3 30 mmol/L (22-26); VBG pCO2 49 mmHg; VBG pH 7.39 (7.32-7.43); VBG pO2 78 mmHg
[2024-01-13 03:41] LABS: Influenza A PCR NEGATIVE (Negative); Influenza B PCR NEGATIVE (Negative); Resp Syncy Virus RNA Qual PCR NEGATIVE (Negative); SARS COV2 PCR INHOUSE NEGATIVE (Negative)
[2024-01-13] MEDS: Albuterol Sulfate 7.5 MG, Albuterol/Iprat 2.5/0.5MG 3 ML 3 ML INHALE (03:45)
--- NOTE | 2024-01-13 04:05 | PC.NURSE ---
sats 89% while receiving breathing tx via RT. per MD to administer o2 2L NC. sats up to 92%.
--- NOTE | 2024-01-13 04:40 | PC.NURSE ---
pt still wheezing on inspiration and expiratory, RT notified MD aware. pt denies feeling sob/cp, resting comfortably. sats 90-92% on 2L NC.
[2024-01-13 05:00] LABS: Magnesium 1.7 mg/dL (1.6-2.6)
[2024-01-13] MEDS: Albuterol Sulfate 5 MG, Albuterol Sulfate (0.083%) 2.5 MG 7.5 MG INHALE (05:15)
--- NOTE | 2024-01-13 05:33 | ED_ITS ---
HPI - SOB/Dyspnea General Chief Complaint: Dyspnea Stated Complaint: SOB x2 hrs, COPD worsen, wheezy Time Seen by Provider: 01/13/24 03:04 Source: patient and EMS Mode of arrival: EMS Limitations: no limitations History of Present Illness ED Provider: tam GANDHI Narrative: Patient is 68 years old with history of severe COPD on home oxygen 2 L as needed for last 1 year, hyperlipidemia, hypertension ex-smoker comes here for increased shortness of breath since last night patient was doing well during daytime in the nighttime patient is started having shortness a breath still desaturated to 84% at room air used to nebulizing treatment prior to arrival and 1 treatment by EMS came here saturating 91% on 2 L with obvious wheezing and cough mostly dry. No chest pain no palpitation Related Data Home Medications ?Medication ?Instructions ?Recorded ?Confirmed multivitamin 1 tab PO DAILY 01/31/21 05/24/23 omeprazole 20 mg capsule,delayed 20 mg PO DAILY@0630 01/31/21 05/24/23 release albuterol sulfate 2.5 mg/3 mL 2.5 mg inhalation TID PRN 03/11/23 05/24/23 (0.083 %) solution for nebulization Shortness Of Breath Or Wheezing albuterol sulfate 90 mcg/actuation 2 puff inhalation DAILY wheezing 03/11/23 05/24/23 aerosol inhaler amlodipine 2.5 mg tablet 2.5 mg PO DAILY 03/11/23 05/24/23 doxazosin 2 mg tablet 2 mg PO BEDTIME 03/11/23 05/24/23 losartan 50 mg tablet 50 mg PO BID 03/11/23 05/24/23 atorvastatin 10 mg tablet 10 mg PO DAILY 05/24/23 05/24/23 Previous Rx's ?Medication ?Instructions ?Recorded inhalational spacing device #10 ea 12/01/21 (Aerochamber MV spacer) azithromycin 250 mg tablet 250 mg PO DAILY 3 days #3 tabs 05/24/23 prednisone 20 mg tablet 40 mg (2 x 20 mg) PO DAILY #6 tabs 05/24/23 Anoro Ellipta 62.5 mcg-25 1 inh inhalation DAILY 30 days #1 08/03/23 mcg/actuation powder for ea inhalation (umeclidinium-vilanterol) ipratropium bromide 0.02 % 2.5 ml inhalation Q6H PRN wheezing 08/04/23 solution for inhalation #150 mL Allergies Allergy/AdvReac Type Severity Reaction Status Date / Time No Known Allergies Allergy Verified 01/13/24 02:46 Review of Systems 2 Review of Systems: Yes all other systems are reviewed and are negative [facility] Past Medical History Medical History On home O2 Chronic obstructive lung disease Chronic lung disease GERD (gastroesophageal reflux disease) HLD (hyperlipidemia) COPD exacerbation Hypertension Hypertension Surgical History History of appendectomy Social History Social History Household Members: Family Household Members Other:: daughter lives next door Housing: Apartment Do you presently have visiting nurse or other home services: No Alcohol intake: current Alcohol intake frequency: does not drink Alcohol type: beer Patient Tobacco Use Status: Former Tobacco user Tobacco use type: Cigarette Cigarette Packs Per Day: 1 Cigarettes Per Day: 20.0 Years Smoked: 50 Smoked in Last 30 Days: No e-Cigarette/Vaping Use: Never Used Second Hand Smoke Exposure: No Use of substances other than those prescribed or required for medical reasons: No Advance Directives: Yes Advance Directives on File: Yes Advance Directives Date on File: 02/26/22 service: No Current occupational status: employed Physical Exam 2 Vital Signs: Vital Signs: Last Vital Signs Temp 98.3 F 01/13/24 06:12 Pulse 110 H 01/13/24 06:12 Resp 20 01/13/24 06:12 BP 138/64 01/13/24 06:12 Pulse Ox 93 01/13/24 06:12 O2 Del Method Nasal Cannula 01/13/24 06:12 O2 Flow Rate 2 01/13/24 06:12 BMI result Body Mass Index 25.0 Appearance: Alert. Oriented X3. In moderate respiratory distress with obvious wheezing Eyes: No pallor or icterus ENT: Pharynx normal. Oral Mucosa moist Neck: Normal inspection. Neck supple. CVS: Normal heart rate and rhythm. Pulses normal. Respiratory: Moderate respiratory distress. Equal air entry bilateral, b/l wheezing and bilateral conducted sounds Abdomen: Soft and nontender. Bowel sounds are present, no mass palpable, no CVA tenderness Skin: Skin warm and dry. Normal skin color. Normal skin turgor. Extremities: No lower extremity edema. No calf tenderness Neuro: Oriented X 3. No motor deficit. No sensory deficit.No cerebellar signs , cranial nerves II-XII intact Medications Administered Generic Name Dose Route Start Last Admin Trade Name Freq PRN Reason Stop Dose Admin Sodium Chloride 2,500 mls @ 2,500 mls/hr 01/13/24 06:07 01/13/24 06:14 Ns IV 01/13/24 07:06 2,500 mls/hr .Q1H STA Administration Discontinued Medications Generic Name Dose Route Start Last Admin Trade Name Freq PRN Reason Stop Dose Admin Albuterol Sulfate 7.5 mg/ 10 mg 01/13/24 03:05 01/13/24 03:08 Albuterol Sulfate 2.5 mg INHALE 01/13/24 03:06 10 mg ONCE ONE Administration Albuterol Sulfate 5 mg/ 7.5 mg 01/13/24 05:11 01/13/24 05:15 Albuterol Sulfate 2.5 mg INHALE 01/13/24 05:12 7.5 mg ONCE ONE Administration Albuterol Sulfate 7.5 mg/ 0 mg 01/13/24 03:42 01/13/24 03:45 Albuterol/Ipratropium 3 ml INHALE 01/13/24 03:43 10 each ONCE ONE Administration Sodium Chloride 1,000 mls @ 999 mls/hr 01/13/24 05:33 01/13/24 06:13 Ns IV 01/13/24 06:33 Infused .Q1H1M ONE Infusion Ceftriaxone Sodium 1 gm/ 50 mls @ 100 mls/hr 01/13/24 05:33 01/13/24 06:00 Sodium Chloride IV 01/13/24 06:02 100 mls/hr ONCE ONE Administration Methylprednisolone Sodium Succinate 125 mg 01/13/24 03:05 01/13/24 03:19 Methylprednisolone Sod Succ 125 Mg/2 Ml Vial IVPUSH 01/13/24 03:06 125 mg ONCE ONE Administration Medical Decision Making Medical Decision Making [facility] Narrative: Patient has severe COPD ex-smoker comes here for exacerbation of COPD with desaturated to 84% at room air chest x-ray negative for infiltrate patient has had elevated lactic acid which is from nebulizing treatment has a chronic lung condition but no acute infection elevated WBC count because of frequent prednisone use was given IV fluids and antibiotics prophylactically admit to the medical floor for COPD exacerbation/bronchitis Differential Diagnosis Differential Diagnoses: The differential diagnosis associated with the presentation includes COPD/CHF/bronchitis/pneumonia Admission/Observation Consideration of admission/observation: Escalation of care including admission/observation considered Consult Healthcare Provider Management of the patient was discussed with: Hospitalist Lab Data MDM Lab Attestation statement: I reviewed the patient's lab results. 01/13/24 02:58 01/13/24 02:58 Labs: Lab Results 01/13/24 01/13/24 01/13/24 Range/Units 02:58 03:29 05:52 WBC 12.8 H (4.8-10.8) X10*3/uL RBC 4.10 L (4.60-5.80) X10*6/uL Hgb 14.1 (14.0-18.0) g/dl Hct 40.7 L (42.0-52.0) % MCV 99.3 H (80.0-98.0) fL MCH 34.4 H (27.0-33.0) pg MCHC 34.6 (31.0-36.0) g/dl RDW 11.9 (11.0-16.0) % Plt Count 250 D (160-400) X10*3/uL MPV 10.2 (9.4-12.4) fL Immature Gran % (Auto) 0.7 H (0.0-0.4) % Neut % (Auto) 75.0 H (45-73) % Lymph % (Auto) 15.2 L (20-40) % [place] % (Auto) 6.3 (2-11) % Eos % (Auto) 2.3 (0-4) % Baso % (Auto) 0.5 (0-2) % Lymph # (Auto) 2.0 (1.2-4.9) X10*3/uL [place] # (Auto) 0.8 (0.1-1.2) X10*3/uL Eos # (Auto) 0.3 (0.0-0.4) X10*3/uL Baso # (Auto) 0.1 (0.0-0.2) X10*3/uL Abs Immat Gran (auto) 0.09 H (0.00-0.03) X10*3/uL Absolute Neuts (auto) 9.6 H (2.0-8.3) x10*3/uL Absolute Nucleated RBC 0.000 (0.0-0.012) X10*3/uL Nucleated RBC % (auto) 0.0 (0.0-0.2) /100WBC VBG pH 7.39 (7.32-7.43) VBG pCO2 49 mmHg VBG pO2 78 mmHg VBG HCO3 30 H (22-26) mmol/L VBG O2 Saturation 94.0 % VBG Base Excess 4.1 mmol/L Sodium 141 (135-145) mmol/L Potassium 3.8 (3.3-5.1) mmol/L Chloride 102 (96-108) mmol/L Carbon Dioxide 29 (22-29) mmol/L Anion Gap 14 (12-20) BUN 19 H (9-16) mg/dL Creatinine 1.17 (0.5-1.4) mg/dL Estim Creat Clear Calc 58.7 Estimated GFR > 60 Random Glucose 134 H (60-115) mg/dL Lactic Acid 3.1 H* (0.5-2.0) mmol/L Calcium 9.5 D (8.4-10.2) mg/dL Magnesium 1.7 (1.6-2.6) mg/dL Total Bilirubin 0.5 (0.0-1.0) mg/dL AST 18 (5-37) U/L ALT 25 (0-40) U/L Alkaline Phosphatase 56 (39-117) U/L Troponin I High Sens < 2.7 (<3.5-35.0) ng/L B-Natriuretic Peptide 23 (<100) pg/mL Total Protein 7.0 (6.5-8.0) g/dL Albumin 4.2 (3.5-5.0) g/dL Influenza Type A (PCR) NEGATIVE (Negative) Influenza Type B (PCR) NEGATIVE (Negative) RSV RNA Qual (PCR) NEGATIVE (Negative) SARS-CoV-2 RNA (RT-PCR) NEGATIVE (Negative) ABG Data Attestation ABG: I personally reviewed and interpreted this ABG as follows: Interpretation: Respiratory hypoxia Independent Interpretation I performed an independent interpretation of an: EKG and Plain X-Ray Interpretation: Sinus tachycardia heart rate 103 beats per minute no acute ST T wave changes no acute ischemia normal axis Radiology Impression Discussion of test interpretation with radiology: I have reviewed the radiologist's reading. External Record Review External record reviewed: Inpatient record Critical Care Time Critical Care Time Critical Care Time: Yes Total Critical Care Time: 55 Attestation: The patient was critically ill with a high probability of imminent or life threatening deterioration. I spent greater than 60 ???minutes of discontinuous time evaluating the patient,delivering critical care at the bedside, discussing and evaluating pertinent data with consultants. Critical care time does not include time spent performing separately billable procedures or teaching. Total time spent performing critical care was 55???minutes. Discharge Plan Discharge Clinical Impression: Severe chronic obstructive pulmonary disease, Acute and chronic respiratory failure with hypoxia Patient Disposition: Still a Patient Prescriptions: No Action ipratropium bromide 0.02 % solution 2.5 ml inhalation Q6H PRN (Reason: wheezing) Qty: 150 6RF multivitamin Tablet 1 tab PO DAILY omeprazole 20 mg Capsule,Delayed Release(Dr/Ec) 20 mg PO DAILY@0630 (DME) Aerochamber MV Spacer See Rx Instructions .Route Qty: 10 0RF Rx Instructions: As directed losartan 50 mg tablet 50 mg PO BID albuterol sulfate 2.5 mg /3 mL (0.083 %) solution for nebulization 2.5 mg inhalation TID PRN (Reason: Shortness Of Breath Or Wheezing) amlodipine 2.5 mg tablet 2.5 mg PO DAILY albuterol sulfate 90 mcg/actuation HFA aerosol inhaler 2 puff inhalation DAILY doxazosin 2 mg tablet 2 mg PO BEDTIME atorvastatin 10 mg tablet 10 mg PO DAILY prednisone 20 mg tablet 40 mg PO DAILY Qty: 6 0RF azithromycin 250 mg tablet 250 mg PO DAILY 3 Days Qty: 3 0RF Rx Instructions: start on day 2 of therapy Anoro Ellipta 62.5-25 mcg/actuation blister with device 1 inh inhalation DAILY 30 Days Qty: 1 6RF Print Language: Divehi
[2024-01-13] MEDS: cefTRIAXone sodium 1 GM in 0.9 % Sodium Chloride 50 ML IV (06:00)
[2024-01-13] MEDS: 0.9 % Sodium Chloride 1,000 ML 999 ML IV (06:00)
[2024-01-13 06:07] LABS: Lactic Acid 3.1 mmol/L (0.5-2.0)
[2024-01-13] MEDS: 0.9 % Sodium Chloride 2,500 ML 2500 ML IV (06:14)
[2024-01-13 07:56] LABS: Reflex Lactate? Lactic Acid Added
--- NOTE | 2024-01-13 08:10 | PC.NURSE ---
resting quietly. NAD. able to sit at bedside for breakfast. no cough. NSR on monitor. skin pwd. unlabored resp. good appetite.LS coarse wheeze. Deep breath induces coughing fit that resolved quickly.
--- NOTE | 2024-01-13 09:38 | PHA.MEDREC ---
Pharmacy Consult ? Medication Reconciliation Pharmacy has completed the medication reconciliation. Spoke to patient and confirmed medication list. Patient stated he takes losartan 50 mg twice a day and albuterol inhaler 2 puffs qid prn.
[2024-01-13 09:50] LABS: ~Lactic Acid-LAB USE ONLY 6.1 mmol/L (0.5-2.0)
--- NOTE | 2024-01-13 11:21 | P.HPHOSP_ITS ---
History of Present Illness Date of Service: 01/13/24 Chief Complaint: Dyspnea A 68 years old male with PMH of COPD on 2L home O2, HTN, HLD, ex-smoker presenting with sudden onset difficulties breathing and wheezes. The patient has been on PRN O2 at home which he usually doesnt need for almost 1 year with fairly controlled disease according to him. Last night he went to bed regularly but woke up around 2 AM with sudden onset SOB with no reported No chest pain, palpitations, nausea, vomiting, diarrhea or urinary symptoms. He denies any URI symptoms. Found to have O2 sat of 84% on RA upon arrival with significant wheezing. In ED CXR showed no evidence of infection or fluid overload. responded partially to steroids and nebulizers. will be admitted for further treatment. Review of Systems 2 Review of Systems: No fever, chills or weakness No chest pain, palpitation having shortness of breath and mild coughing No abdominal pain, nausea or vomiting No urinary symptoms No any rash or wounds [facility] Medical History (Updated 01/13/24 @ 12:44 by Noemi Noriega MD) COPD exacerbation On home O2 Chronic obstructive lung disease Chronic lung disease GERD (gastroesophageal reflux disease) HLD (hyperlipidemia) Hypertension Hypertension Surgical History History of appendectomy Social History Household Members: Family Household Members Other:: daughter lives next door Housing: Apartment Do you presently have visiting nurse or other home services: No Alcohol intake: current Alcohol intake frequency: does not drink Alcohol type: beer Patient Tobacco Use Status: Former Tobacco user Tobacco use type: Cigarette Cigarette Packs Per Day: 1 Cigarettes Per Day: 20.0 Years Smoked: 50 Smoked in Last 30 Days: No e-Cigarette/Vaping Use: Never Used Second Hand Smoke Exposure: No Use of substances other than those prescribed or required for medical reasons: No Advance Directives: Yes Advance Directives on File: Yes Advance Directives Date on File: 02/26/22 service: No Current occupational status: employed Meds Allergies Allergy/AdvReac Type Severity Reaction Status Date / Time No Known Allergies Allergy Verified 01/13/24 02:46 Active Medications: Current Medications Acetaminophen (Acetaminophen 325 Mg Tablet) 650 mg PO Q6H PRN PRN Reason: Pain, Mild (Pain Scale 1-3), fever or headache Albuterol Sulfate (Albuterol Sulfate (0.083%) 2.5 Mg/3 Ml Vial.Neb) 2.5 mg INHALE Q4H PRN PRN Reason: Dyspnea Albuterol/Ipratropium (Albuterol/Iprat 2.5/0.5mg 3 Ml Ampul.Neb) 3 ml INHALE RQ4H WHILE AWAKE [facility] Amlodipine Besylate (Amlodipine Besylate 2.5 Mg Tablet) 2.5 mg PO DAILY [facility]; Protocol Atorvastatin Calcium (Atorvastatin Calcium 10 Mg Tablet) 10 mg PO DAILY [facility] Benzonatate (Benzonatate 100 Mg Capsule) 100 mg PO TID PRN PRN Reason: Cough Calcium Carbonate (Calcium Carbonate 750 Mg Tab.Chew) 750 mg PO Q4H PRN PRN Reason: Heartburn Doxazosin Mesylate (Doxazosin Mesylate 2 Mg Tablet) 2 mg PO BEDTIME [facility]; Protocol Enoxaparin Sodium (Enoxaparin Sodium 40 Mg/0.4 Ml Syringe) 40 mg SUBCUT Q24H [facility] Ipratropium [place] (Ipratropium [place] 0.5 Mg/2.5 Ml Solution) mg INHALE Q6H PRN PRN Reason: wheezing Losartan Potassium (Losartan Potassium 50 Mg Tablet) 50 mg PO BID [facility]; Protocol Magnesium Hydroxide (Milk Of Magnesia 30 Ml Oral.Susp) 30 ml PO DAILY PRN PRN Reason: Constipation Melatonin (Melatonin 3 Mg Tablet) 6 mg PO BEDTIME PRN PRN Reason: Insomnia Methylprednisolone Sodium Succinate (Methylprednisolone Sod Succ 40 Mg/Ml Vial) 40 mg IVPUSH Q12H [facility] Multivitamins/Vitamin C (Multivitamin Tablet) 1 tab PO DAILY [facility] Non-Formulary Medication (Umeclidinium-Vilanterol [Anoro Ellipta]) 1 inhalation INHALE DAILY [facility] Omeprazole (Omeprazole 20 Mg Capsule.Dr) 20 mg PO DAILY@0630 [facility] Ondansetron HCl (Ondansetron Hcl 4 Mg/2 Ml Vial) 4 mg IVPUSH Q8H PRN PRN Reason: Nausea and Vomiting Sodium Chloride (0.9 % Sodium Chloride Flush 3 Ml Syringe) 3 ml IVFLUSH QSHIFT [facility] Home Medications ?Medication ?Instructions ?Recorded ?Confirmed ?Last Taken ?Type multivitamin 1 tab PO DAILY 10/08/21 09/19/24 09/18/24 History omeprazole 20 mg capsule,delayed 20 mg PO DAILY@0630 01/31/21 01/13/24 01/12/24 History release albuterol sulfate 2.5 mg/3 mL 2.5 mg inhalation TID PRN 03/11/23 01/13/24 Unknown History (0.083 %) solution for nebulization Shortness Of Breath Or Wheezing albuterol sulfate 90 mcg/actuation 2 puff inhalation QID PRN wheezing 03/11/23 01/13/24 Unknown History aerosol inhaler amlodipine 2.5 mg tablet 2.5 mg PO DAILY 03/11/23 01/13/24 01/12/24 History doxazosin 2 mg tablet 2 mg PO BEDTIME 03/11/23 01/13/24 01/12/24 History losartan 50 mg tablet 50 mg PO BID 03/11/23 01/13/24 01/12/24 History atorvastatin 10 mg tablet 10 mg PO DAILY 05/24/23 01/13/24 01/12/24 History Physical Exam 2 Vital Signs and Narrative: Vital Signs: Last Vital Signs Temp 98.3 F 01/13/24 08:00 Pulse 102 H 01/13/24 10:00 Resp 16 01/13/24 10:00 BP 129/58 L 01/13/24 10:00 Pulse Ox 94 01/13/24 10:00 O2 Del Method Nasal Cannula 01/13/24 10:00 O2 Flow Rate 2 01/13/24 10:00 BMI result Body Mass Index 25.0 Const: Other: Constitutional : Awake, interactive, not in distress Neck : Normal inspection, Supple Cardiovascular : RRR, no JVP, no lower extremity edema Respiratory : decreased bilateral air entry, no crackles, bilateral expiratory wheezing Gastrointestinal: soft, lax, Normal bowel sounds, Non tender Skin : Warm, Dry Neurological : Alert & oriented x3, No focal deficit Results Labs 01/13/24 02:58 01/13/24 02:58 Labs: Laboratory Results - last 24 hr 01/13/24 01/13/24 01/13/24 02:58 03:29 05:52 MCV 99.3 H MCH 34.4 H MCHC 34.6 RDW 11.9 Plt Count 250 D MPV 10.2 Immature Gran % (Auto) 0.7 H Neut % (Auto) 75.0 H Lymph % (Auto) 15.2 L [place] % (Auto) 6.3 Eos % (Auto) 2.3 Baso % (Auto) 0.5 Lymph # (Auto) 2.0 [place] # (Auto) 0.8 Eos # (Auto) 0.3 Baso # (Auto) 0.1 Abs Immat Gran (auto) 0.09 H Absolute Neuts (auto) 9.6 H Absolute Nucleated RBC 0.000 Nucleated RBC % (auto) 0.0 VBG pH 7.39 VBG pCO2 49 VBG pO2 78 VBG HCO3 30 H VBG O2 Saturation 94.0 VBG Base Excess 4.1 Anion Gap 14 Estim Creat Clear Calc 58.7 Estimated GFR > 60 Random Glucose 134 H Lactic Acid 3.1 H* Lactic Acid F/U @ 2Hr Calcium 9.5 D Magnesium 1.7 Total Bilirubin 0.5 AST 18 ALT 25 Alkaline Phosphatase 56 Troponin I High Sens < 2.7 B-Natriuretic Peptide 23 Total Protein 7.0 Albumin 4.2 Influenza Type A (PCR) NEGATIVE Influenza Type B (PCR) NEGATIVE RSV RNA Qual (PCR) NEGATIVE SARS-CoV-2 RNA (RT-PCR) NEGATIVE 01/13/24 09:30 MCV MCH MCHC RDW Plt Count MPV Immature Gran % (Auto) Neut % (Auto) Lymph % (Auto) [place] % (Auto) Eos % (Auto) Baso % (Auto) Lymph # (Auto) [place] # (Auto) Eos # (Auto) Baso # (Auto) Abs Immat Gran (auto) Absolute Neuts (auto) Absolute Nucleated RBC Nucleated RBC % (auto) VBG pH VBG pCO2 VBG pO2 VBG HCO3 VBG O2 Saturation VBG Base Excess Anion Gap Estim Creat Clear Calc Estimated GFR Random Glucose Lactic Acid Lactic Acid F/U @ 2Hr 6.1 H* Calcium Magnesium Total Bilirubin AST ALT Alkaline Phosphatase Troponin I High Sens B-Natriuretic Peptide Total Protein Albumin Influenza Type A (PCR) Influenza Type B (PCR) RSV RNA Qual (PCR) SARS-CoV-2 RNA (RT-PCR) Imaging Radiologist's Impressions: Impressions Chest X-Ray 01/13/24 03:00 IMPRESSION: Unremarkable examination. Electronically signed by: Albaro Del Rio MD 01/13/2024 03:38 AM EDT Assessment and Plan (1) Acute and chronic respiratory failure with hypoxia: Status: Acute (2) COPD exacerbation: Status: Acute Plan A 68 years old male with PMH of COPD on 2L home O2, HTN, HLD, ex-smoker presenting with sudden onset difficulties breathing and wheezes. Acute on chronic hypoxic failure 2/2 COPD exacerbation IV steroids Bronchodilator nebulizers Azithromycin PO Wean O2 down as tolerated HTN Losartan and Amlodipine BPH Doxazosin GERD Omeprazole DVT PPx Lovenox Quality Stroke Does the patient have a stroke diagnosis?: No VTE Prior VTE?: No VTE Risk Level:: Medical - moderate - high VTE Device Contraindication: Treatment Not Indicated VTE Drug Contraindication: N/A - Med Ordered
[2024-01-13 11:34] LABS: Reflex Lactate? 2 Y
[2024-01-13] MEDS: Omeprazole 20 MG CAPSULE.DR PO (12:09)
[2024-01-13] MEDS: Losartan Potassium 50 MG TABLET PO ×2 (12:09→20:38)
[2024-01-13] MEDS: Enoxaparin Sodium 40 MG/0.4 ML SYRINGE SUBCUT (12:11)
[2024-01-13 12:47] LABS: ~Lactic Acid-LAB USE ONLY 4.3 mmol/L (0.5-2.0)
[2024-01-13 13:08] LABS: Cancel Lactic Acid Canceled
[2024-01-13] MEDS: 0.9 % Sodium Chloride Flush 3 ML SYRINGE IVFLUSH ×2 (15:48→20:40)
[2024-01-13] MEDS: Albuterol/Iprat 2.5/0.5MG 3 ML AMPUL.NEB INHALE (19:48)
[2024-01-13] MEDS: methylPREDNISolone Sod Succ 40 MG/ML VIAL IVPUSH (20:37)
[2024-01-13] MEDS: Doxazosin Mesylate 2 MG TABLET PO (20:38)
[2024-01-14 03:17] VITALS: BP 136/66; PULSE 77; RESP 18; TEMP 36.6; O2SAT 95
[2024-01-14] MEDS: Omeprazole 20 MG CAPSULE.DR PO (05:45)
[2024-01-14] MEDS: Benzonatate 100 MG CAPSULE PO (06:38)
[2024-01-14 07:09] LABS: Anion Gap 9 (12-20); Blood Urea Nitrogen 16 mg/dL (9-16); Calcium 8.2 mg/dL (8.4-10.2); Carbon Dioxide 27 mmol/L (22-29); Chloride 110 mmol/L (96-108); Creatinine Clr Calc Pharmacy 80.8; Estimated Glomerular Filt Rate > 60; Glucose Random 148 mg/dL (60-115); Potassium 4.4 mmol/L (3.3-5.1); Sodium 142 mmol/L (135-145)
[2024-01-14 07:29] VITALS: BP 131/62; PULSE 73; RESP 16; TEMP 36.6; O2SAT 95
[2024-01-14] MEDS: Losartan Potassium 50 MG TABLET PO (07:34)
[2024-01-14] MEDS: 0.9 % Sodium Chloride Flush 3 ML SYRINGE IVFLUSH (07:34)
[2024-01-14] MEDS: methylPREDNISolone Sod Succ 40 MG/ML VIAL IVPUSH (07:34)
[2024-01-14] MEDS: amLODIPine Besylate 2.5 MG TABLET PO (07:35)
[2024-01-14] MEDS: Multivitamin TABLET 1 TAB PO (07:35)
[2024-01-14] MEDS: Atorvastatin Calcium 10 MG TABLET PO (07:35)
[2024-01-14 07:49] VITALS: PULSE 65; RESP 16; O2SAT 92
[2024-01-14] MEDS: Albuterol/Iprat 2.5/0.5MG 3 ML AMPUL.NEB INHALE ×2 (07:49→11:30)
--- NOTE | 2024-01-14 09:53 | MHC.CM.PN ---
pt lives alone is independent has no servies has own ride home dc plan home no servies
--- NOTE | 2024-01-14 11:12 | P.DS_ITS ---
DS: Providers Provider Date of Service: 01/14/24 Date of admission: 01/13/24 11:16 Date of discharge: 01/14/24 Primary care physician: Feliberto Britt MD DS: Diagnosis Discharge Diagnosis (1) Acute and chronic respiratory failure with hypoxia: Status: Acute (2) COPD exacerbation: Status: Acute DS: Summary Hospital Course Hospital Course: Admission note HPI A 68 years old male with PMH of COPD on 2L home O2, HTN, HLD, ex-smoker presenting with sudden onset difficulties breathing and wheezes. The patient has been on PRN O2 at home which he usually doesnt need for almost 1 year with fairly controlled disease according to him. Last night he went to bed regularly but woke up around 2 AM with sudden onset SOB with no reported No chest pain, palpitations, nausea, vomiting, diarrhea or urinary symptoms. He denies any URI symptoms. Found to have O2 sat of 84% on RA upon arrival with significant wheezing. In ED CXR showed no evidence of infection or fluid overload. responded partially to steroids and nebulizers. will be admitted for further treatment. Hospital course The patient was admitted for COPD exacerbation with Increase oxygen requirments requiring treatment with IV steroids, Bronchodilator nebulizers and Oxygen therapy with good response over the course of hospital stay. To be discharged home on tapering dose steroids and using his home nebulizer regularly for the next few days then as needed. Discharge plan USe nebulizer 3 times daily for the next 3 days then as needed Continue Prednisone tapering dose as prescribed Cough medicaiton as needed Wean Oxygen down as tolerated Time Attestation Discharge Coordination Time (in mins): 26 Quality: Safe Use of Opioids Does Pt have an Active Cancer Diagnosis on the Problem List?: No Quality: Stroke Does the patient have a stroke diagnosis?: No Physical Exam Vital Signs: Vital Signs: Last Vital Signs Temp 97.9 F 01/14/24 07:29 Pulse 65 01/14/24 07:49 Resp 16 01/14/24 07:49 BP 131/62 01/14/24 07:29 Pulse Ox 95 01/14/24 07:29 O2 Del Method Nasal Cannula 01/14/24 07:29 O2 Flow Rate 2.0 01/14/24 07:29 BMI result Body Mass Index 26.3 Const: Other: Constitutional : Awake, interactive, not in distress Neck : Normal inspection, Supple Cardiovascular : RRR, no JVP, no lower extremity edema Respiratory : fair bilateral air entry, no crackles, no wheezes Gastrointestinal: soft, lax, Normal bowel sounds, Non tender Skin : Warm, Dry Neurological : Alert & oriented x3, No focal deficit DS: Data Data Completed and Pending Completed studies during hospitalization [Text1]: Procedures Assistance with Respiratory Ventilation, Less than 24 Consecutive Hours, Continuous Positive Airway Pressure (09/22/22) Labs on day of discharge: Laboratory Results - last 24 hr 01/13/24 01/14/24 12:16 05:42 Hold Purple Top SEE NOTE Sodium 142 Potassium 4.4 Chloride 110 H Carbon Dioxide 27 Anion Gap 9 L BUN 16 Creatinine 0.85 Estim Creat Clear Calc 80.8 Estimated GFR > 60 Random Glucose 148 H Lactic Acid F/U @ 4Hr 4.3 H* Calcium 8.2 L D Preliminary micro results at discharge 01/13/24 05:45 Blood Culture - Preliminary Blood - Venous No growth after 24 hours. 01/13/24 05:52 Blood Culture - Preliminary Blood - Venous No growth after 24 hours. Imaging Chest x-ray: Radiologist's impression: ITS Impressions Chest X-Ray 01/13/24 03:00 IMPRESSION: Unremarkable examination. Electronically signed by: Albaro Del Rio MD 01/13/2024 03:38 AM EDT RP Discharge Plan Discharge Anticipated Discharge Date/Time: 01/14/24 11:09 Patient Disposition: Home, Self-Care Discharge Diagnosis: COPD exacerbation Referrals: Feliberto Britt MD [Primary Care Provider] - 1 Week Discharge Medications: New benzonatate 100 mg Capsule 100 mg PO TID PRN (Reason: Cough) Qty: 30 0RF prednisone 10 mg tablet See Taper PO DIRECTED Qty: 30 0RF Taper: Prednisone 40 mg daily for 3 Days and 0 Hour 30 mg daily for 3 Days and 0 Hour 20 mg daily for 3 Days and 0 Hour 10 mg daily for 3 Days and 0 Hour Rx Instructions: see taper instructions Continued ipratropium bromide 0.02 % solution 2.5 ml inhalation Q6H PRN (Reason: wheezing) Qty: 150 6RF multivitamin Tablet 1 tab PO DAILY omeprazole 20 mg Capsule,Delayed Release(Dr/Ec) 20 mg PO DAILY@0630 (DME) Aerochamber MV Spacer See Rx Instructions .Route Qty: 10 0RF Rx Instructions: As directed losartan 50 mg tablet 50 mg PO BID albuterol sulfate 2.5 mg /3 mL (0.083 %) solution for nebulization 2.5 mg inhalation TID PRN (Reason: Shortness Of Breath Or Wheezing) amlodipine 2.5 mg tablet 2.5 mg PO DAILY albuterol sulfate 90 mcg/actuation HFA aerosol inhaler 2 puff inhalation QID PRN (Reason: wheezing) doxazosin 2 mg tablet 2 mg PO BEDTIME atorvastatin 10 mg tablet 10 mg PO DAILY Anoro Ellipta 62.5-25 mcg/actuation blister with device 1 inh inhalation DAILY 30 Days Qty: 1 6RF Discharge Orders: Discharge Order (Routine); Ordered 01/14/24 Ordered By: Noemi Noriega Diet: Advance to usual diet Activity on Discharge: As tolerated Stand Alone Forms: Patient Portal Discharge page Print Language: [place] Care Plan Goals: USe nebulizer 3 times daily for the next 3 days then as needed Continue Prednisone tapering dose as prescribed Cough medicaiton as needed Wean Oxygen down as tolerated Health Concerns: Read below Plan of Treatment: Read below Assessment: Read below
[2024-01-14 11:30] VITALS: PULSE 60; RESP 15; O2SAT 95
--- NOTE | 2024-01-14 11:46 | MHC.CM.PN ---
pt dcd home self care
== END 2024-01-14 11:46 | disposition home or self-care (01) ==
LOC: HO.ED 09:42 → HO.EDOVER 11:21 → HO.S3 13:53
PROVIDERS: Admitting Provider Student in an Organized Health Care Education/Training Program; Emergency Provider Internal Medicine; PCP Internal Medicine; Visit Provider Student in an Organized Health Care Education/Training Program
DX: J44.1 Chronic obstructive pulmonary disease with (acute) exacerbation (principal); J96.21 Acute and chronic respiratory failure with hypoxia; E78.5 Hyperlipidemia, unspecified; I10 Essential (primary) hypertension; Z99.81 Dependence on supplemental oxygen; Z87.891 Personal history of nicotine dependence; Z79.899 Other long term (current) drug therapy; Z03.818 Encounter for observation for suspected exposure to other biological agents ruled out
CPT/HCPCS: 0241U; 36415; 71045; 80048; 80053; 82803; 83605; 83735; 83880; 84484; 85025; 87040; 93005; 94640; 96361; 96365; 96372; 96375; 96376; 99221; 99285; J0696; J1650; J2919

== ENCOUNTER → 2024-01-13 11:16 | Outpatient (BNV) | payer MEDICARE, SELFPAY | PROVIDERS: Admitting Provider Student in an Organized Health Care Education/Training Program; Emergency Provider Internal Medicine; PCP Internal Medicine; Visit Provider Student in an Organized Health Care Education/Training Program | DX: J44.1 Chronic obstructive pulmonary disease with (acute) exacerbation (principal); J96.21 Acute and chronic respiratory failure with hypoxia | CPT/HCPCS: 99223; 99238 ==

== ENCOUNTER 2024-02-08 11:11 | Outpatient (AMB) | payer MEDICARE, SELFPAY ==
[2024-02-08 11:13] VITALS: BP 138/64; PULSE 102; O2SAT 96; BMI 24.6
--- NOTE | 2024-02-08 11:13 | MHC.OFFVIS ---
Vital Signs 02/08/24 11:13 Height 5 ft 9 in Weight 166 lb 7.184 oz BMI 24.6 BP 138/64 Blood Pressure Location Lt brachial Position Sitting Pulse 102 H Pulse Source Doppler Pulse Oximetry (%) 96 Oxygen Delivery Method Room Air Intake Visit Reasons: COPD Allergies No Known Allergies Allergy (Verified 01/13/24 02:46) HPI HPI COPD: Details: 68-year-old gentleman, recent 50 pack-year smoker, quit 09/2022, now followed for severe COPD. He continues Anoro, ipratropium, and albuterol MDI with good control of his symptoms. He denies any recent exacerbations. [facility] Medical History (Updated 02/08/24 @ 11:33 by Rupert Diaz MD) Severe chronic obstructive pulmonary disease COPD exacerbation On home O2 Chronic obstructive lung disease Chronic lung disease GERD (gastroesophageal reflux disease) HLD (hyperlipidemia) Hypertension Hypertension Surgical History History of appendectomy Social History Household Members: None Household Members Other:: daughter lives next door Housing: Apartment Do you presently have visiting nurse or other home services: No Alcohol intake: current Alcohol intake frequency: does not drink Alcohol type: beer Patient Tobacco Use Status: Former Tobacco user Tobacco use type: Cigarette Cigarette Packs Per Day: 1 Cigarettes Per Day: 20.0 Years Smoked: 50 e-Cigarette/Vaping Use: Never Used Second Hand Smoke Exposure: No Advance Directives Date on File: 02/26/22 service: No Current occupational status: employed Review of Systems Const Denies daytime sleepiness, Denies excessive sweating, Denies fatigue, Denies fever(s), Denies lethargy, Denies malaise, Denies night sweats, Denies snoring and Denies weight loss Eyes Denies blurry vision and Denies itchy eyes ENT Denies nasal congestion, Denies post nasal drip, Denies sinus pain, Denies sinus pressure and Denies other ( Thrush) Card Denies chest pain, Denies pedal edema, Denies dyspnea, Denies orthopnea and Denies paroxysmal nocturnal dyspnea Resp Denies cough, Denies hemoptysis, Denies excessive phlegm production, Denies dyspnea, Denies snoring and Denies wheezing GI Denies abdominal pain and Denies heartburn Musc Denies myalgias, Denies arthralgias and Denies joint swelling Skin/Breast Denies rash Neuro Denies memory loss and Denies seizure-like activity Psych Denies abnormal sleep pattern, Denies anxiety and Denies memory loss Endo Denies excessive sweating, Denies fatigue and Denies heat intolerance Mikey/Lymph Denies easy bruising Aller/Immun Denies itchy eyes, Denies seasonal rhinorrhea and Denies wheezing Physical Exam Vital Signs: Last Vital Signs Pulse 102 H 02/08/24 11:13 BP 138/64 02/08/24 11:13 Pulse Ox 96 02/08/24 11:13 Oxygen Delivery Method Room Air 02/08/24 11:13 BMI result Body Mass Index 24.6 Const General: no acute distress and alert Nutritional Appearance: not obese Orientation/consciousness: Other orientation findings ( oriented) HEENT Head: Yes atraumatic Eyes General: appearance normal, both eyes and all related structures Sclerae: sclerae normal EOM: EOMs intact bilaterally Neck Neck: Yes supple Lymphatic: no lymphadenopathy noted Resp Effort & Inspection: normal respiratory effort and no use of accessory muscles Auscultation: clear to auscultation bilaterally Cardio Rate: regular rate Rhythm: regular rhythm Heart sounds: no gallops, no murmurs and no rubs Skin General skin exam: other ( warm) Extrem General: No clubbing, No cyanosis and No edema Assessment & Plan Assessment & Plan (1) Severe chronic obstructive pulmonary disease: Code(s): J44.9 - Chronic obstructive pulmonary disease, unspecified Category: Medical Plan: Well controlled on current regimen of Anoro and albuterol MDI. Continue current regimen. (2) Personal history of nicotine dependence: Code(s): Z87.891 - Personal history of nicotine dependence Category: Medical Plan: Results of lung cancer screening CT chest reviewed, no worrisome nodules at this time. Continue with yearly screening, next in June of 2024, ordered. Orders: Orders CT lung screening 07/08/24 Z87.891 - Personal history of nicotine dependence Coding Level of Care Code Est Pt Level 4 (72254) Diagnoses Severe chronic obstructive pulmonary disease J44.9 Personal history of nicotine dependence Z87.891
== END 2024-02-08 11:28 | disposition home or self-care (01) ==
PROVIDERS: PCP Internal Medicine; Visit Provider Internal Medicine Pulmonary Disease
DX: J44.9 Chronic obstructive pulmonary disease, unspecified (principal); Z87.891 Personal history of nicotine dependence
CPT/HCPCS: 99214

== ENCOUNTER → 2024-02-08 11:11 | Outpatient (BNVA) | payer MEDICARE, SELFPAY | PROVIDERS: PCP Internal Medicine; Visit Provider Internal Medicine Pulmonary Disease | DX: J44.9 Chronic obstructive pulmonary disease, unspecified (principal); Z87.891 Personal history of nicotine dependence | CPT/HCPCS: 99212 ==

== ENCOUNTER 2024-05-16 00:48 | Inpatient (IN) | payer MEDICARE, SELFPAY ==
[2024-05-16] VITALS (17 sets, daily range): BP systolic 96–179; BP diastolic 56–89; PULSE 78–118; RESP 14–26; TEMP 36.4–37.1; O2SAT 80–99; BMI 24.6
--- NOTE | 2024-05-16 | ECG_ITS ---
Test Reason : COPD Blood Pressure : */* mmHG Vent. Rate : 116 BPM Atrial Rate : 116 BPM P-R Int : 148 ms QRS Dur : 104 ms QT Int : 346 ms P-R-T Axes : 83 92 52 degrees QTcB Int : 480 ms Sinus tachycardia Right atrial enlargement Rightward axis Pulmonary disease pattern Abnormal ECG When compared with ECG of 13-Jan-2024 02:47, No significant change was found Referred By: Generic ED Physician Electronically Signed By: DARON BATES MD
--- NOTE | ~2024-05-16 | XR_ITS ---
CLINICAL HISTORY: dyspnea 1 view chest x-ray Comparison: CR/SR - XR CHEST 1V - 01/13/24 02:58 EDT Findings: The lungs are clear. Normal size heart. No acute fracture. IMPRESSION: 1. No acute findings. This document has been electronically signed by: Richard Urbina MD on 05/16/2024 01:57:15
[2024-05-16] MEDS: Albuterol Sulfate 7.5 MG, Albuterol/Iprat 2.5/0.5MG 3 ML 3 ML INHALE (01:01)
--- NOTE | 2024-05-16 01:09 | ED.SOB ---
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 He was found in the 70s with EMS given CPAP, duonebs, 125mg solumedrol. He denies recent fevers, cough, cold symptoms. No chest pain reported. MD elicited complaint: shortness of breath and cough Pertinent past history: COPD Onset (ago): hour(s) (2) Context: allergen exposure Timing: constant Severity: severe Exacerbating factors: exertion and coughing Relieving factors: oxygen, rest, bronchodilators and upright position Known history of: COPD Associated symptoms: cough and wheezing Treatment prior to arrival: oxygen, bronchodilator, NIPPV and other (IV steroids) Related Data Home Medications ?Medication ?Instructions ?Recorded ?Confirmed multivitamin 1 tab PO DAILY 01/31/21 01/13/24 omeprazole 20 mg capsule,delayed 20 mg PO DAILY@0630 01/31/21 01/13/24 release albuterol sulfate 2.5 mg/3 mL 2.5 mg inhalation TID PRN 03/11/23 01/13/24 (0.083 %) solution for nebulization Shortness Of Breath Or Wheezing albuterol sulfate 90 mcg/actuation 2 puff inhalation QID PRN wheezing 03/11/23 01/13/24 aerosol inhaler amlodipine 2.5 mg tablet 2.5 mg PO DAILY 03/11/23 01/13/24 doxazosin 2 mg tablet 2 mg PO BEDTIME 03/11/23 01/13/24 losartan 50 mg tablet 50 mg PO BID 03/11/23 01/13/24 atorvastatin 10 mg tablet 10 mg PO DAILY 05/24/23 01/13/24 Previous Rx's ?Medication ?Instructions ?Recorded inhalational spacing device #10 ea 12/01/21 (Aerochamber MV spacer) ipratropium bromide 0.02 % 2.5 ml inhalation Q6H PRN wheezing 08/04/23 solution for inhalation #150 mL benzonatate 100 mg capsule 100 mg PO TID PRN Cough #30 caps 01/14/24 prednisone 10 mg tablet See Taper PO DIRECTED #30 tabs 01/14/24 Anoro Ellipta 62.5 mcg-25 1 inh inhalation DAILY #60 ea 03/02/24 mcg/actuation powder for inhalation (umeclidinium-vilanterol) Allergies Allergy/AdvReac Type Severity Reaction Status Date / Time No Known Allergies Allergy Verified 05/16/24 00:58 Review of Systems Review of Systems: Constitutional : No Fever, No Chills ENT/Mouth : No Hoarseness, No sore throat, No Rhinorrhea Eyes: No Redness, No Discharge, No Vision Changes Cardiovascular : No Chest Pain, positive SOB, positive Dyspnea on Exertion, No Edema Respiratory : positive Cough, No Sputum, positive Wheezing, Gastrointestinal : No Nausea, No Vomiting, No Diarrhea, No abdominal Pain Genitourinary : No Dysuria, No Hematuria Musculoskeletal : No joint pain, No Myalgias Skin : No rash Neuro : No Weakness, No Numbness, No Headache Psych : No anxiety, depression Heme/Lymph: No Bruising, No Bleeding Endocrine : No Polyuria, No Polydipsia All other systems reviewed and are negative [facility] Past Medical History Attestation statement: The following information was validated with the patient. Source: old records reviewed Medical History Severe chronic obstructive pulmonary disease COPD exacerbation On home O2 Chronic obstructive lung disease Chronic lung disease GERD (gastroesophageal reflux disease) HLD (hyperlipidemia) Hypertension Hypertension Surgical History History of appendectomy Social History Social History Household Members: None Household Members Other:: daughter lives next door Housing: Apartment Do you presently have visiting nurse or other home services: No Alcohol intake: current Alcohol intake frequency: does not drink Alcohol type: beer Patient Tobacco Use Status: Former Tobacco user Tobacco use type: Cigarette Cigarette Packs Per Day: 1 Cigarettes Per Day: 20.0 Years Smoked: 50 Smoked in Last 30 Days: No e-Cigarette/Vaping Use: Never Used Second Hand Smoke Exposure: No Use of substances other than those prescribed or required for medical reasons: No Advance Directives: Yes Advance Directives on File: Yes Advance Directives Date on File: 02/26/22 Do you have a plan to hurt others: No Plan service: No Current occupational status: employed Physical Exam Vital Signs: Vital Signs: Last Vital Signs Temp 97.7 F 05/16/24 00:56 Pulse 107 H 05/16/24 02:32 Resp 16 05/16/24 02:41 BP 96/60 05/16/24 02:32 Pulse Ox 86 L 05/16/24 02:32 O2 Del Method CPAP 05/16/24 02:32 Oxygen Flow Rate 10 05/16/24 00:56 BMI result Body Mass Index 24.6 Appearance: Alert. Oriented X3. moderate acute distress. Eyes: Pupils equal, round and reactive to light. ENT: Pharynx normal. Neck: Normal inspection. Neck supple. CVS: Normal heart rate and rhythm. Pulses normal. Respiratory: moderate respiratory distress. Breath sounds very diminished Abdomen: Soft and nontender. Skin: Skin warm and dry. Normal skin color. Normal skin turgor. Extremities: No lower extremity edema. Neuro: Oriented X 3. No motor deficit. No sensory deficit. CN2-12 intact Course Course Course Narrative: improved on 2L NC VBG stable Medications Administered Discontinued Medications Generic Name Dose Route Start Last Admin Trade Name Freq PRN Reason Stop Dose Admin Ceftriaxone Sodium 1 gm 05/16/24 00:52 05/16/24 01:17 Ceftriaxone Sodium 1 Gm Vial IVPUSH 05/16/24 00:53 1 gm ONCE ONE Administration Albuterol Sulfate 7.5 mg/ 0 mg 05/16/24 00:58 05/16/24 01:01 Albuterol/Ipratropium 3 ml INHALE 05/16/24 00:59 1 each ONCE ONE Administration Magnesium Sulfate 2 gm in 50 mls @ 25 mls/hr 05/16/24 01:09 05/16/24 01:40 Magnesium Sulfate/H2o IV 05/16/24 03:08 Infused ONCE ONE Infusion Medical Decision Making Medical Decision Making MDM Narrative: 68 yo male with PMH of severe COPD on PRN O2, GERD, HLD, HTN here with resp distress after fume exposure at this time he is labored will obtain labs, treat as COPD exacerbation, VBG, CXR, EKG, IV magnesium give his work of breathing will place in bipap. 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 Differential Diagnosis Differential Diagnoses: The differential diagnosis associated with the presentation includes COPD, URI, acute on chronic resp failure Admission/Observation Consideration of admission/observation: Escalation of care including admission/observation considered plan to admit repeat VBG stable, off bipap [id number] Consult Healthcare Provider Management of the patient was discussed with: Hospitalist (will admit) Lab Data [facility] Lab Attestation statement: I reviewed the patient's lab results. 05/16/24 01:00 05/16/24 01:00 Labs: Lab Results 05/16/24 05/16/24 05/16/24 Range/Units 01:00 01:08 01:09 WBC 14.7 H (4.8-10.8) X10*3/uL RBC 4.48 L (4.60-5.80) X10*6/uL Hgb 15.1 (14.0-18.0) g/dl Hct 44.0 (42.0-52.0) % MCV 98.2 H (80.0-98.0) fL MCH 33.7 H (27.0-33.0) pg MCHC 34.3 (31.0-36.0) g/dl RDW 12.1 (11.0-16.0) % Plt Count 231 (160-400) X10*3/uL MPV 10.7 (9.4-12.4) fL Immature Gran % (Auto) 0.7 H (0.0-0.4) % Neut % (Auto) 72.7 (45-73) % Lymph % (Auto) 15.3 L (20-40) % Mitchell % (Auto) 8.0 (2-11) % Eos % (Auto) 2.9 (0-4) % Baso % (Auto) 0.4 (0-2) % Lymph # (Auto) 2.3 (1.2-4.9) X10*3/uL Mitchell # (Auto) 1.2 (0.1-1.2) X10*3/uL Eos # (Auto) 0.4 (0.0-0.4) X10*3/uL Baso # (Auto) 0.1 (0.0-0.2) X10*3/uL Abs Immat Gran (auto) 0.10 H (0.00-0.03) X10*3/uL Absolute Neuts (auto) 10.7 H (2.0-8.3) x10*3/uL Absolute Nucleated RBC 0.000 (0.0-0.012) X10*3/uL Nucleated RBC % (auto) 0.0 (0.0-0.2) /100WBC Hold Blue Top SEE NOTE VBG pH 7.31 L (7.32-7.43) VBG pCO2 53 mmHg VBG pO2 49 mmHg VBG HCO3 27 H (22-26) mmol/L VBG O2 Saturation 73.0 % VBG Base Excess 0.7 mmol/L Sodium 140 (135-145) mmol/L Potassium 4.2 (3.3-5.1) mmol/L Chloride 106 (96-108) mmol/L Carbon Dioxide 24 (22-29) mmol/L Anion Gap 14 (12-20) BUN 12 (9-16) mg/dL Creatinine 1.01 (0.5-1.4) mg/dL Estim Creat Clear Calc 68.0 Estimated GFR > 60 Random Glucose 124 H (60-115) mg/dL Lactic Acid 1.4 (0.5-2.0) mmol/L Calcium 8.6 (8.4-10.2) mg/dL Total Bilirubin 0.4 (0.0-1.0) mg/dL AST 31 (5-37) U/L ALT 21 (0-40) U/L Alkaline Phosphatase 63 (39-117) U/L Troponin I High Sens 2.7 (<3.5-35.0) ng/L B-Natriuretic Peptide 46 (<100) pg/mL Total Protein 7.5 (6.5-8.0) g/dL Albumin 4.1 (3.5-5.0) g/dL Influenza Type A (PCR) NEGATIVE (Negative) Influenza Type B (PCR) NEGATIVE (Negative) RSV RNA Qual (PCR) NEGATIVE (Negative) SARS-CoV-2 RNA (RT-PCR) NEGATIVE (Negative) 05/16/24 Range/Units 04:45 WBC (4.8-10.8) X10*3/uL RBC (4.60-5.80) X10*6/uL Hgb (14.0-18.0) g/dl Hct (42.0-52.0) % MCV (80.0-98.0) fL MCH (27.0-33.0) pg MCHC (31.0-36.0) g/dl RDW (11.0-16.0) % Plt Count (160-400) X10*3/uL MPV (9.4-12.4) fL Immature Gran % (Auto) (0.0-0.4) % Neut % (Auto) (45-73) % Lymph % (Auto) (20-40) % Mitchell % (Auto) (2-11) % Eos % (Auto) (0-4) % Baso % (Auto) (0-2) % Lymph # (Auto) (1.2-4.9) X10*3/uL Mitchell # (Auto) (0.1-1.2) X10*3/uL Eos # (Auto) (0.0-0.4) X10*3/uL Baso # (Auto) (0.0-0.2) X10*3/uL Abs Immat Gran (auto) (0.00-0.03) X10*3/uL Absolute Neuts (auto) (2.0-8.3) x10*3/uL Absolute Nucleated RBC (0.0-0.012) X10*3/uL Nucleated RBC % (auto) (0.0-0.2) /100WBC Hold Blue Top VBG pH 7.35 (7.32-7.43) VBG pCO2 41 mmHg VBG pO2 73 mmHg VBG HCO3 23 (22-26) mmol/L VBG O2 Saturation 93.0 % VBG Base Excess -2.0 mmol/L Sodium (135-145) mmol/L Potassium (3.3-5.1) mmol/L Chloride (96-108) mmol/L Carbon Dioxide (22-29) mmol/L Anion Gap (12-20) BUN (9-16) mg/dL Creatinine (0.5-1.4) mg/dL Estim Creat Clear Calc Estimated GFR Random Glucose (60-115) mg/dL Lactic Acid (0.5-2.0) mmol/L Calcium (8.4-10.2) mg/dL Total Bilirubin (0.0-1.0) mg/dL AST (5-37) U/L ALT (0-40) U/L Alkaline Phosphatase (39-117) U/L Troponin I High Sens (<3.5-35.0) ng/L B-Natriuretic Peptide (<100) pg/mL Total Protein (6.5-8.0) g/dL Albumin (3.5-5.0) g/dL Influenza Type A (PCR) (Negative) Influenza Type B (PCR) (Negative) RSV RNA Qual (PCR) (Negative) SARS-CoV-2 RNA (RT-PCR) (Negative) Independent Interpretation I performed an independent interpretation of an: EKG and Plain X-Ray (normal ) Interpretation: Rate: 116 Rhythm: sinus tach [place]: normal Normal P waves. Normal TANJA. Normal QRS complex. ST T wave : no JOVANY, artifact noted qTC: 480 prior studies: no acute ischemia The study has been interpreted contemporaneously by me. . Radiology Impression Discussion of test interpretation with radiology: I have reviewed the radiologist's reading. Independent Historian Clinical information obtained from an independent historian. History obtained from or confirmed by: EMS External Record Review External record reviewed: Inpatient record and Outpatient record Critical Care Time Critical Care Time Critical Care Time: Yes Total Critical Care Time: 60 Attestation: repeat nebs, IV magnesium, BIPAP for acute on chronic resp failure, repeat assessments I attest to this time spent taking care of the patient Discharge Plan Discharge Clinical Impression: Acute exacerbation of chronic obstructive airways disease Patient Disposition: Admitted As Inpatient Print Language: [place]ian
[2024-05-16 01:10] LABS: MANUAL DIFF FLAG NO
[2024-05-16 01:17] LABS: Venous Blood Gas Refer to POC result
[2024-05-16 01:17] LABS: VBG Base Excess 0.7 mmol/L; VBG HCO3 27 mmol/L (22-26); VBG pCO2 53 mmHg; VBG pH 7.31 (7.32-7.43); VBG pO2 49 mmHg
[2024-05-16] MEDS: cefTRIAXone sodium 1 GM VIAL IVPUSH (01:17)
[2024-05-16] MEDS: Magnesium Sulfate/H2O 2 GM/50 ML PIGGYBACK IV (01:17)
[2024-05-16 01:20] LABS: Basophils Absolute Auto 0.1 X10*3/uL (0.0-0.2); Basophils Percent Auto 0.4 % (0-2); Eosinophils Absolute Auto 0.4 X10*3/uL (0.0-0.4); Eosinophils Percent Auto 2.9 % (0-4); Hemoglobin 15.1 g/dl (14.0-18.0); Imm Gran Pct Auto 0.7 % (0.0-0.4); Lymphocytes Absolute Auto 2.3 X10*3/uL (1.2-4.9); Lymphocytes Percent Auto 15.3 % (20-40); Mean Corpuscular HGB Conc 34.3 g/dl (31.0-36.0); Mean Corpuscular Hemoglobin 33.7 pg (27.0-33.0); Mean Corpuscular Volume 98.2 fL (80.0-98.0); Mean Platelet Volume 10.7 fL (9.4-12.4); Monocytes Absolute Auto 1.2 X10*3/uL (0.1-1.2); Neutrophils Absolute Auto 10.7 x10*3/uL (2.0-8.3); Neutrophils Percent Auto 72.7 % (45-73); Platelet Count 231 X10*3/uL (160-400); Red Blood Count 4.48 X10*6/uL (4.60-5.80); Red Cell Distribution Width 12.1 % (11.0-16.0); White Blood Count 14.7 X10*3/uL (4.8-10.8)
[2024-05-16 01:35] LABS: Lactic Acid 1.4 mmol/L (0.5-2.0)
[2024-05-16 01:40] LABS: Troponin-I High Sensitivity 2.7 ng/L (<3.5-35.0)
[2024-05-16 01:46] LABS: Alanine Aminotransferase 21 U/L (0-40); Albumin Level 4.1 g/dL (3.5-5.0); Alkaline Phosphatase 63 U/L (39-117); Anion Gap 14 (12-20); Aspartate Amino Transferase 31 U/L (5-37); Bilirubin Total 0.4 mg/dL (0.0-1.0); Blood Urea Nitrogen 12 mg/dL (9-16); Calcium 8.6 mg/dL (8.4-10.2); Carbon Dioxide 24 mmol/L (22-29); Chloride 106 mmol/L (96-108); Estimated Glomerular Filt Rate > 60; Glucose Random 124 mg/dL (60-115); Potassium 4.2 mmol/L (3.3-5.1); Sodium 140 mmol/L (135-145); Total Protein 7.5 g/dL (6.5-8.0)
[2024-05-16 01:55] LABS: Influenza A PCR NEGATIVE (Negative); Influenza B PCR NEGATIVE (Negative); Resp Syncy Virus RNA Qual PCR NEGATIVE (Negative); SARS COV2 PCR INHOUSE NEGATIVE (Negative)
[2024-05-16 02:00] LABS: B Type Natriuretic Peptide 46 pg/mL (<100)
--- NOTE | 2024-05-16 02:31 | PC.NURSE ---
pt found to be 86% on CPAP, verbalizes feeling better and denies sob however expiratory wheezing ausc. RT notified. MD aware of BP no further interventions at this time.
[2024-05-16 04:48] LABS: Venous Blood Gas Refer to POC result
[2024-05-16 04:50] LABS: VBG HCO3 23 mmol/L (22-26); VBG pCO2 41 mmHg; VBG pH 7.35 (7.32-7.43); VBG pO2 73 mmHg
--- NOTE | 2024-05-16 05:15 | PC.NURSE ---
cpap removed per MD, 88% on RA, placed on 2L NC.
--- NOTE | 2024-05-16 05:22 | P.HPHOSP_ITS ---
History of Present Illness Date of Service: 05/16/24 Chief Complaint: Dyspnea This is a 68-year-old male with pertinent history of COPD on prn home oxygen but states doesnt use at baseline, former tobacco use disorder, mixed hyperlipidemia, hypertension, gastroesophageal reflux disease, BPH who presents to the emergency department for evaluation of dyspnea and wheezing. Patient states it started on the day of presentation. He went to watch a game at a bar and had a beer. States they were painting the bathroom and he started to have wheezing, cough and dyspnea. Initially cough was dry but eventually became productive with clear sputum. Dyspnea is worse with exertion. Wheezing was not relieved with home oxygen. No fevers or chills. He denies chest discomfort, palpitations, abdominal pain, changes in urinary or bowel habits. Patient states he quit smoking. Has never been intubated in the past. In the emergency department, patient initially required BiPAP for respiratory acidosis. Given IV steroids (by EMS), breathing treatments in the ER. Chest x- ray without any acute abnormality Review of Systems 2 Constitutional: Constitutional: Reports fatigue, Reports malaise and Reports weakness Cardiovascular: Cardiovascular: Reports dyspnea on exertion Respiratory: Respiratory: Reports cough, Reports dyspnea on exertion and Reports wheezing Neurologic: Reports weakness Endocrine: Endocrine: Reports fatigue Allergic/Immunologic: Allergic/Immunologic: Reports wheezing [facility] Medical History Severe chronic obstructive pulmonary disease COPD exacerbation On home O2 Chronic obstructive lung disease Chronic lung disease GERD (gastroesophageal reflux disease) HLD (hyperlipidemia) Hypertension Hypertension Pertinent family history: No family history of early CAD Surgical History History of appendectomy Social History Household Members: None Household Members Other:: daughter lives next door Housing: Apartment Do you presently have visiting nurse or other home services: No Alcohol intake: current Alcohol intake frequency: does not drink Alcohol type: beer Patient Tobacco Use Status: Former Tobacco user Tobacco use type: Cigarette Cigarette Packs Per Day: 1 Cigarettes Per Day: 20.0 Years Smoked: 50 Smoked in Last 30 Days: No e-Cigarette/Vaping Use: Never Used Second Hand Smoke Exposure: No Use of substances other than those prescribed or required for medical reasons: No Advance Directives: Yes Advance Directives on File: Yes Advance Directives Date on File: 02/26/22 Do you have a plan to hurt others: No Plan service: No Current occupational status: employed Meds Allergies Allergy/AdvReac Type Severity Reaction Status Date / Time No Known Allergies Allergy Verified 05/16/24 00:58 Home Medications ?Medication ?Instructions ?Recorded ?Confirmed ?Last Taken ?Type multivitamin 1 tab PO DAILY 01/31/21 01/13/24 01/12/24 History omeprazole 20 mg capsule,delayed 20 mg PO DAILY@0630 01/31/21 01/13/24 01/12/24 History release albuterol sulfate 2.5 mg/3 mL 2.5 mg inhalation TID PRN 03/11/23 01/13/24 Unknown History (0.083 %) solution for nebulization Shortness Of Breath Or Wheezing albuterol sulfate 90 mcg/actuation 2 puff inhalation QID PRN wheezing 03/11/23 01/13/24 Unknown History aerosol inhaler amlodipine 2.5 mg tablet 2.5 mg PO DAILY 03/11/23 01/13/24 01/12/24 History doxazosin 2 mg tablet 2 mg PO BEDTIME 03/11/23 01/13/24 01/12/24 History losartan 50 mg tablet 50 mg PO BID 03/11/23 01/13/24 01/12/24 History atorvastatin 10 mg tablet 10 mg PO DAILY 05/24/23 01/13/24 01/12/24 History Physical Exam 2 Vital Signs and Narrative: Vital Signs: Last Vital Signs Temp 97.7 F 05/16/24 00:56 Pulse 107 H 05/16/24 02:32 Resp 16 05/16/24 02:41 BP 96/60 05/16/24 02:32 Pulse Ox 94 05/16/24 05:15 O2 Del Method Nasal Cannula 05/16/24 05:15 O2 Flow Rate 2 05/16/24 05:15 Oxygen Flow Rate 10 05/16/24 00:56 BMI result Body Mass Index 24.6 Middle-aged male lying in bed in mild distress on supplemental oxygen Neck supple, no JVD Tachycardic with regular rhythm, S1-S2 heard Bilateral wheezing without crackles, tachypnea present Abdomen soft nontender, no guarding, no rigidity Patient is awake, alert and oriented to self, place, time and person ; no focal motor deficit Psych: Normal mood No pedal edema Results Labs 05/16/24 01:00 05/16/24 01:00 Labs: Laboratory Results - last 24 hr 05/16/24 05/16/24 05/16/24 01:00 01:08 01:09 MCV 98.2 H MCH 33.7 H MCHC 34.3 RDW 12.1 Plt Count 231 MPV 10.7 Immature Gran % (Auto) 0.7 H Neut % (Auto) 72.7 Lymph % (Auto) 15.3 L Anson % (Auto) 8.0 Eos % (Auto) 2.9 Baso % (Auto) 0.4 Lymph # (Auto) 2.3 Anson # (Auto) 1.2 Eos # (Auto) 0.4 Baso # (Auto) 0.1 Abs Immat Gran (auto) 0.10 H Absolute Neuts (auto) 10.7 H Absolute Nucleated RBC 0.000 Nucleated RBC % (auto) 0.0 Hold Blue Top SEE NOTE VBG pH 7.31 L VBG pCO2 53 VBG pO2 49 VBG HCO3 27 H VBG O2 Saturation 73.0 VBG Base Excess 0.7 Anion Gap 14 Estim Creat Clear Calc 68.0 Estimated GFR > 60 Random Glucose 124 H Lactic Acid 1.4 Calcium 8.6 Total Bilirubin 0.4 AST 31 ALT 21 Alkaline Phosphatase 63 Troponin I High Sens 2.7 B-Natriuretic Peptide 46 Total Protein 7.5 Albumin 4.1 Influenza Type A (PCR) NEGATIVE Influenza Type B (PCR) NEGATIVE RSV RNA Qual (PCR) NEGATIVE SARS-CoV-2 RNA (RT-PCR) NEGATIVE 05/16/24 04:45 MCV MCH MCHC RDW Plt Count MPV Immature Gran % (Auto) Neut % (Auto) Lymph % (Auto) Anson % (Auto) Eos % (Auto) Baso % (Auto) Lymph # (Auto) Anson # (Auto) Eos # (Auto) Baso # (Auto) Abs Immat Gran (auto) Absolute Neuts (auto) Absolute Nucleated RBC Nucleated RBC % (auto) Hold Blue Top VBG pH 7.35 VBG pCO2 41 VBG pO2 73 VBG HCO3 23 VBG O2 Saturation 93.0 VBG Base Excess -2.0 Anion Gap Estim Creat Clear Calc Estimated GFR Random Glucose Lactic Acid Calcium Total Bilirubin AST ALT Alkaline Phosphatase Troponin I High Sens B-Natriuretic Peptide Total Protein Albumin Influenza Type A (PCR) Influenza Type B (PCR) RSV RNA Qual (PCR) SARS-CoV-2 RNA (RT-PCR) Assessment and Plan (1) Acute exacerbation of chronic obstructive airways disease: Status: Acute Plan This is a 68-year-old male with pertinent history of COPD on prn home oxygen but states doesnt use at baseline, former tobacco use disorder, mixed hyperlipidemia, hypertension, gastroesophageal reflux disease, BPH who presents to the emergency department for evaluation of dyspnea and wheezing. #. Acute hypoxemic respiratory failure secondary to acute exacerbation of COPD: Will admit patient and initiate systemic steroids. Scheduled and p.r.n. DuoNebs. Continue home inhaler. Monitor oxygen saturation and wean as tolerated. Maintain oxygen saturation greater than 88%. Initiating azithromycin for pleiotropic effect. #. Leukocytosis, reactive #. Hypertension: Continue home antihypertensives #. Gastroesophageal reflux disease: On PPI #. Mixed hyperlipidemia: On statin #. BPH: On doxazosin Med rec pending DVT prophylaxis: Lovenox 40 mg daily Full code. Discussed with patient at bedside Cardiac diet Admit as inpatient and will require two night minimum hospital stay for IV steroids, supplemental oxygen (as above), which is not possible in a lesser acute setting. Quality Stroke Does the patient have a stroke diagnosis?: No VTE Prior VTE?: No VTE Risk Level:: Medical - moderate - high VTE Device Contraindication: Treatment Not Indicated VTE Drug Contraindication: N/A - Med Ordered
[2024-05-16] MEDS: Azithromycin 500 MG in 0.9 % Sodium Chloride 250 ML 125 MG IV (06:09)
[2024-05-16] MEDS: Enoxaparin Sodium 40 MG/0.4 ML SYRINGE SUBCUT (08:41)
[2024-05-16] MEDS: methylPREDNISolone Sod Succ 40 MG/ML VIAL IVPUSH ×2 (08:42→19:52)
--- NOTE | 2024-05-16 09:14 | PHA.MEDREC ---
Pharmacy Consult ? Medication Reconciliation Pharmacy has completed the medication reconciliation, spoke to patient at bedside who used a list on his phone to confirm medications, last taken yesterday.
[2024-05-16] MEDS: Albuterol/Iprat 2.5/0.5MG 3 ML AMPUL.NEB INHALE ×4 (09:37→19:27)
[2024-05-16] MEDS: 0.9 % Sodium Chloride Flush 3 ML SYRINGE IVFLUSH ×2 (16:05→19:52)
[2024-05-17 04:00] VITALS: BP 140/67; PULSE 70; RESP 16; TEMP 36.6; O2SAT 94
[2024-05-17] MEDS: Omeprazole 20 MG CAPSULE.DR PO (05:29)
[2024-05-17] MEDS: Azithromycin 500 MG in 0.9 % Sodium Chloride 250 ML 125 MG IV (05:29)
[2024-05-17 05:54] LABS: Basophils Absolute Auto 0.1 X10*3/uL (0.0-0.2); Basophils Percent Auto 0.2 % (0-2); Hematocrit 39.1 % (42.0-52.0); Hemoglobin 13.2 g/dl (14.0-18.0); Imm Gran Abs Auto 0.18 X10*3/uL (0.00-0.03); Imm Gran Pct Auto 0.7 % (0.0-0.4); Lymphocytes Absolute Auto 1.2 X10*3/uL (1.2-4.9); Lymphocytes Percent Auto 4.6 % (20-40); MANUAL DIFF FLAG SCAN; Mean Corpuscular HGB Conc 33.8 g/dl (31.0-36.0); Mean Corpuscular Hemoglobin 33.1 pg (27.0-33.0); Mean Platelet Volume 11.1 fL (9.4-12.4); Monocytes Absolute Auto 1.3 X10*3/uL (0.1-1.2); Neutrophils Absolute Auto 23.7 x10*3/uL (2.0-8.3); Neutrophils Percent Auto 89.5 % (45-73); Platelet Count 239 X10*3/uL (160-400); Red Blood Count 3.99 X10*6/uL (4.60-5.80); Red Cell Distribution Width 12.2 % (11.0-16.0); SCAN SMEAR FLAG 1; White Blood Count 26.4 X10*3/uL (4.8-10.8)
[2024-05-17 06:11] LABS: Anion Gap 13 (12-20); Blood Urea Nitrogen 16 mg/dL (9-16); Calcium 8.4 mg/dL (8.4-10.2); Carbon Dioxide 22 mmol/L (22-29); Chloride 108 mmol/L (96-108); Creatinine Clr Calc Pharmacy 68.7; Estimated Glomerular Filt Rate > 60; Glucose Random 148 mg/dL (60-115); Potassium 4.4 mmol/L (3.3-5.1); Sodium 139 mmol/L (135-145)
[2024-05-17 06:12] LABS: SLIDE REVIEW VERIFIED
[2024-05-17 07:09] VITALS: PULSE 70; RESP 16; O2SAT 94
[2024-05-17] MEDS: Albuterol/Iprat 2.5/0.5MG 3 ML AMPUL.NEB INHALE (07:09)
[2024-05-17 07:49] VITALS: BP 133/67; PULSE 79; RESP 18; TEMP 36.6; O2SAT 95
[2024-05-17] MEDS: methylPREDNISolone Sod Succ 40 MG/ML VIAL IVPUSH (09:01)
[2024-05-17] MEDS: Doxazosin Mesylate 2 MG TABLET PO (09:02)
[2024-05-17] MEDS: Atorvastatin Calcium 10 MG TABLET PO (09:03)
[2024-05-17] MEDS: Multivitamin TABLET 1 TAB PO (09:03)
[2024-05-17] MEDS: 0.9 % Sodium Chloride Flush 3 ML SYRINGE IVFLUSH (09:03)
[2024-05-17 09:04] VITALS: BP 117/58
[2024-05-17] MEDS: Losartan Potassium 50 MG TABLET PO (09:04)
[2024-05-17] MEDS: amLODIPine Besylate 2.5 MG TABLET PO (09:04)
--- NOTE | 2024-05-17 09:31 | MHC.CM.PN ---
Addendum entered by Jacy Saleem 05/17/24 12:11: DP: PT HAS BEEN MEDICALLY CLEARED FOR DC HOME, NO SERVICES. PT HAS OWN RIDE HOME Original Note: [facility] DELIVERED PT LIVES ALONE, FUNCTIONALLY INDEPENDENT AND EMPLOYED F/T. NO SERVICES. HOME 02 USED PRN AT [facility]ITERS/HAS NEBULIZER VIA [facility]. +HCP ON FILE PCP DR. CANTU DP: HOME, NO SERVICES IS ANTICIPATED. PT HAS OWN RIDE HOME. CM WILL CONTINUE TO FOLLOW FOR ANY CHANGE TO DC PLAN/NEEDS.
[2024-05-17 11:28] VITALS: BP 140/63; PULSE 77; RESP 16; TEMP 36.7; O2SAT 94
--- NOTE | 2024-05-17 11:57 | PM.DS ---
DS: Providers Provider Date of Service: 05/17/24 Date of admission: 05/16/24 05:21 Date of discharge: 05/17/24 Primary care physician: Unknown Physician DS: Diagnosis Discharge Diagnosis (1) Acute exacerbation of chronic obstructive airways disease: Status: Acute DS: Summary Hospital Course Hospital Course: Admission note HPI This is a 68-year-old male with pertinent history of COPD on prn home oxygen but states doesnt use at baseline, former tobacco use disorder, mixed hyperlipidemia, hypertension, gastroesophageal reflux disease, BPH who presents to the emergency department for evaluation of dyspnea and wheezing. Patient states it started on the day of presentation. He went to watch a game at a bar and had a beer. States they were painting the bathroom and he started to have wheezing, cough and dyspnea. Initially cough was dry but eventually became productive with clear sputum. Dyspnea is worse with exertion. Wheezing was not relieved with home oxygen. No fevers or chills. He denies chest discomfort, palpitations, abdominal pain, changes in urinary or bowel habits. Patient states he quit smoking. Has never been intubated in the past. In the emergency department, patient initially required BiPAP for respiratory acidosis. Given IV steroids (by EMS), breathing treatments in the ER. Chest x-ray without any acute abnormality Hospital course The patient was admitted and treated for Acute on chronic hypoxemic respiratory failure secondary to acute exacerbation of COPD as he was treated with systemic steroids along with scheduled and p.r.n. DuoNebs and his home inhaler with azithromycin for pleiotropic effect. He improved over the course of hospital stay and weaned down to 2L of O2 which is his home baseline. Leukocytosis likely reactive and increased from steroids usage. To be discharged on tapering dose steroids, cough medicine and Azithromycin with a plan to continue home nebulizers and wean O2 down as tolerated. Discharge plan Use home nebulizer 4 times daily for the next 3 days then as needed Continue tapering dose Prednisone as prescribed Wean Oxygen down as tolerated at home Avoid smoking or any allergens The patient made quicker than expected recovery and will not need 2 overnight hospital stay. Time Attestation Discharge Coordination Time (in mins): 34 Quality: Safe Use of Opioids Does Pt have an Active Cancer Diagnosis on the Problem List?: No Quality: Stroke Does the patient have a stroke diagnosis?: No Physical Exam Vital Signs: Vital Signs: Last Vital Signs Temp 98.1 F 05/17/24 11:28 Pulse 77 05/17/24 11:28 Resp 16 05/17/24 11:28 BP 140/63 H 05/17/24 11:28 Pulse Ox 94 05/17/24 11:28 O2 Del Method Nasal Cannula 05/17/24 11:28 O2 Flow Rate 2 05/17/24 11:28 Oxygen Flow Rate 10 05/16/24 00:56 BMI result Body Mass Index 24.6 Const: Other: Constitutional : Awake, interactive, not in distress Neck : Normal inspection, Supple Cardiovascular : RRR, no JVP, no lower extremity edema Respiratory : fair bilateral air entry, no crackles, scattered fine wheezes, on 2L O2 Gastrointestinal: soft, lax, Normal bowel sounds, Non tender Skin : Warm, Dry Neurological : Alert & oriented x3, No focal deficit DS: Data Data Completed and Pending Completed studies during hospitalization [Text1]: Procedures Assistance with Respiratory Ventilation, Less than 24 Consecutive Hours, Continuous Positive Airway Pressure (09/22/22) Labs on day of discharge: Laboratory Results - last 24 hr 05/17/24 05:22 WBC 26.4 H RBC 3.99 L Hgb 13.2 L Hct 39.1 L MCV 98.0 MCH 33.1 H MCHC 33.8 RDW 12.2 Plt Count 239 MPV 11.1 Immature Gran % (Auto) 0.7 H Neut % (Auto) 89.5 H Lymph % (Auto) 4.6 L Casey % (Auto) 5.0 Eos % (Auto) 0.0 Baso % (Auto) 0.2 Lymph # (Auto) 1.2 Casey # (Auto) 1.3 H Eos # (Auto) 0.0 Baso # (Auto) 0.1 Abs Immat Gran (auto) 0.18 H Absolute Neuts (auto) 23.7 H Absolute Nucleated RBC 0.000 Nucleated RBC % (auto) 0.0 Smear Tech's Comments VERIFIED Sodium 139 Potassium 4.4 Chloride 108 Carbon Dioxide 22 Anion Gap 13 BUN 16 Creatinine 1.00 Estim Creat Clear Calc 68.7 Estimated GFR > 60 Random Glucose 148 H Calcium 8.4 Preliminary micro results at discharge 05/16/24 01:08 Blood Culture - Preliminary Blood - Venous No growth after 24 hours. 05/16/24 01:00 Blood Culture - Preliminary Blood - Venous No growth after 24 hours. Imaging Chest x-ray: My impression: No acute findings Discharge Plan Discharge Anticipated Discharge Date/Time: 05/17/24 11:52 Patient Disposition: Home, Self-Care Discharge Diagnosis: COPD exacerbation Referrals: Physician,Unknown J [Primary Care Provider] - 1 Week Discharge Medications: New Cough Relief 15 mg/5 mL liquid 15 mg PO Q8H PRN (Reason: cough) Qty: 118 1RF prednisone 10 mg tablet See Taper PO DIRECTED Qty: 30 0RF Taper: Prednisone 40 mg daily for 3 Days and 0 Hour 30 mg daily for 3 Days and 0 Hour 20 mg daily for 3 Days and 0 Hour 10 mg daily for 3 Days and 0 Hour Rx Instructions: see taper instructions azithromycin 250 mg tablet 250 mg PO DAILY 3 Days Qty: 3 0RF Rx Instructions: start on day 2 of therapy Continued Anoro Ellipta 62.5-25 mcg/actuation blister with device 1 inh inhalation DAILY Qty: 60 6RF multivitamin Tablet 1 tab PO DAILY omeprazole 20 mg Capsule,Delayed Release(Dr/Ec) 20 mg PO DAILY@0630 (DME) Aerochamber MV Spacer See Rx Instructions .Route Qty: 10 0RF Rx Instructions: As directed losartan 50 mg tablet 50 mg PO DAILY albuterol sulfate 2.5 mg /3 mL (0.083 %) solution for nebulization 2.5 mg inhalation TID PRN (Reason: Shortness Of Breath Or Wheezing) amlodipine 2.5 mg tablet 2.5 mg PO DAILY albuterol sulfate 90 mcg/actuation HFA aerosol inhaler 2 puff inhalation QID PRN (Reason: wheezing) doxazosin 2 mg tablet 2 mg PO DAILY atorvastatin 10 mg tablet 10 mg PO DAILY ipratropium bromide 0.02 % solution 2.5 ml inhalation Q6H PRN (Reason: wheezing) Discharge Orders: Discharge Order (Routine); Ordered 05/17/24 Ordered By: Noemi Noriega Diet: Advance to usual diet Activity on Discharge: As tolerated Stand Alone Forms: Patient Portal Discharge page Print Language: Arabic Care Plan Goals: Use home nebulizer 4 times daily for the next 3 days then as needed Continue tapering dose Prednisone as prescribed Wean Oxygen down as tolerated at home Avoid smoking or any allergens Health Concerns: COPD exacerbation Plan of Treatment: Steroids, nebulizers Assessment: as above Patient Instructions: COPD (Chronic Obstructive Pulmonary Disease) (DC)
== END 2024-05-17 13:04 | disposition home or self-care (01) | DRG 190 ==
LOC: HO.ED 01:28 → HO.EDOVER 05:38 → HO.S3 16:44
PROVIDERS: Admitting Provider Student in an Organized Health Care Education/Training Program; Emergency Provider Emergency Medicine; PCP Internal Medicine; Visit Provider Student in an Organized Health Care Education/Training Program
DX: J44.1 Chronic obstructive pulmonary disease with (acute) exacerbation (principal); J96.01 Acute respiratory failure with hypoxia; N40.0 Benign prostatic hyperplasia without lower urinary tract symptoms; E78.2 Mixed hyperlipidemia; Z20.822 Contact with and (suspected) exposure to COVID-19; Z99.81 Dependence on supplemental oxygen; Z87.891 Personal history of nicotine dependence; Z79.899 Other long term (current) drug therapy
CPT/HCPCS: 0241U; 36415; 71045; 80048; 80053; 82803; 83605; 83880; 84484; 85025; 87040; 93005; 94640; 99285; J0456; J0696; J1650; J2919; J3475

== ENCOUNTER → 2024-05-16 00:54 | Outpatient (BNV) | payer MEDICARE, SELFPAY | PROVIDERS: Emergency Provider Emergency Medicine; Visit Provider Student in an Organized Health Care Education/Training Program | DX: J44.1 Chronic obstructive pulmonary disease with (acute) exacerbation (principal) | CPT/HCPCS: 99222; 99239 ==

== ENCOUNTER → 2024-05-16 01:01 | Outpatient (BNV) | payer MEDICARE, SELFPAY | PROVIDERS: Admitting Provider Student in an Organized Health Care Education/Training Program; Emergency Provider Emergency Medicine; Visit Provider Internal Medicine Cardiovascular Disease | DX: I51.7 Cardiomegaly (principal); R00.0 Tachycardia, unspecified; I27.9 Pulmonary heart disease, unspecified | CPT/HCPCS: 93010 ==

== ENCOUNTER 2024-06-26 09:03 | Outpatient (REF) | payer MEDICARE, SELFPAY ==
--- NOTE | ~2024-06-26 | CT_ITS ---
EXAMINATION: CT LUNG SCREENING HISTORY: Smoking history TECHNIQUE: Low dose axial images were obtained from the sternal notch to upper abdomen without IV contrast per standard departmental protocol. Sagittal and coronal reformatted images were also obtained and reviewed. One or more of the following techniques was used for dose reduction: Automated exposure control, adjustment of the mA and/or kV according to patient size, use of iterative reconstruction technique. DLP: 52 mGy-cm COMPARISON: Comparison is made with the prior examination dated 03/08/2023. FINDINGS: Lung nodules: There is a punctate nodule in the right upper lobe (series 4, image 37). A 2 mm calcified granuloma is also noted in the right upper lobe (series 4, image 51). No additional pulmonary nodules are identified. Emphysema: none Coronary Calcification: moderate Aortic Arch Calcification: mild Potentially Significant Incidentals : none Additional Chest Findings: There is no pleural or pericardial effusion. There is a 12 mm nodule anterior to the heart (series 3, image 43) which may represent a lymph node. This is similar to appearance to the prior study.. Visualized upper abdomen: The visualized portions of the liver, spleen, and adrenals have an unremarkable unenhanced appearance. CT/CT lung screening IMPRESSION: No suspicious pulmonary nodules are identified. LUNG-RADS ASSESSMENT: Lung-RADS 2: Benign MANAGEMENT: Continue annual screening with LDCT in 12 months Category S: N/A Electronically signed by: Toy Altamirano MD 06/26/2024 12:00 PM [facility]
== END 2024-06-26 09:04 | disposition home or self-care (01) ==
LOC: HO.CT 09:03
PROVIDERS: PCP Internal Medicine; Visit Provider Internal Medicine Pulmonary Disease
DX: Z12.2 Encounter for screening for malignant neoplasm of respiratory organs (principal); Z87.891 Personal history of nicotine dependence
CPT/HCPCS: 71271

== ENCOUNTER → 2024-06-26 09:05 | Outpatient (BNV) | payer MEDICARE, SELFPAY | PROVIDERS: PCP Internal Medicine; Visit Provider Radiology Diagnostic Radiology | DX: Z87.891 Personal history of nicotine dependence (principal) | CPT/HCPCS: 71271 ==

== ENCOUNTER 2024-08-13 23:11 | Emergency (ER) | payer MEDICARE, SELFPAY ==
--- NOTE | 2024-08-13 | ECG_ITS ---
Test Reason : sob Blood Pressure : */* mmHG Vent. Rate : 102 BPM Atrial Rate : 102 BPM P-R Int : 142 ms QRS Dur : 102 ms QT Int : 364 ms P-R-T Axes : 83 83 63 degrees QTcB Int : 474 ms Sinus tachycardia Otherwise normal ECG When compared with ECG of 16-May-2024 01:01, No significant change was found Referred By: Generic ED Physician Electronically Signed By: KWAME MOREJON
--- NOTE | ~2024-08-13 | XR_ITS ---
CLINICAL HISTORY: cough, dyspnea 1 view chest x-ray Comparison: CR - XR CHEST 1V - 05/16/24 01:44 EST Findings: Mild bilateral atelectasis. Mildly diffuse interstitial opacities with bronchial wall thickening. No significant pleural effusion or pneumothorax. Heart size is normal. No acute fracture. IMPRESSION: Mild bilateral atelectasis with possible small airways disease. This document has been electronically signed by: Richard Urbina MD on 08/14/2024 01:21:21
[2024-08-13 23:21] VITALS: BP 138/81; PULSE 113; RESP 24; TEMP 36.7; O2SAT 93; BMI 25.1
[2024-08-13] MEDS: methylPREDNISolone Sod Succ 125 MG/2 ML VIAL 60 MG IVPUSH (23:48)
[2024-08-13] MEDS: Magnesium Sulfate/H2O 2 GM/50 ML PIGGYBACK IV (23:48)
[2024-08-13 23:53] VITALS: PULSE 101; RESP 18; O2SAT 96
[2024-08-13] MEDS: Albuterol Sulfate 7.5 MG, Albuterol/Iprat 2.5/0.5MG 3 ML 3 ML INHALE (23:53)
--- NOTE | 2024-08-13 23:55 | ED.SOB ---
HPI - SOB/Dyspnea General Chief Complaint: Dyspnea Stated Complaint: SOB Time Seen by Provider: 08/13/24 23:35 Source: patient and old records reviewed Mode of arrival: ambulatory Limitations: no limitations History of Present Illness ED Provider: FAITH GANDHI Narrative: 69 yo male former smoker severe COPD PRN O2 use at home, HLD, GERD, HTN has not been on steroids in a few months states he was feeling okay then started to have dry cough and wheezing - he tried his neb no relief. He denies recent travel, URI, fevers, sputum. He states he didn't improve at home and his chest felt tight so he drove to the ED. He has diffuse wheezes on arrival. He is 95% 2L NC on my entrance to the room. He cannot think of any triggering events to cause this. MD elicited complaint: shortness of breath and cough Pertinent past history: COPD Onset (ago): hour(s) (2) Timing: progressively worsening Severity: moderate Exacerbating factors: coughing Relieving factors: oxygen, rest and bronchodilators Known history of: COPD Associated symptoms: cough and wheezing Treatment prior to arrival: bronchodilator Related Data Home Medications ?Medication ?Instructions ?Recorded ?Confirmed multivitamin 1 tab PO DAILY 01/31/21 05/16/24 omeprazole 20 mg capsule,delayed 20 mg PO DAILY@0630 01/31/21 05/16/24 release albuterol sulfate 2.5 mg/3 mL 2.5 mg inhalation TID PRN 03/11/23 05/16/24 (0.083 %) solution for nebulization Shortness Of Breath Or Wheezing albuterol sulfate 90 mcg/actuation 2 puff inhalation QID PRN wheezing 03/11/23 05/16/24 aerosol inhaler amlodipine 2.5 mg tablet 2.5 mg PO DAILY 03/11/23 05/16/24 doxazosin 2 mg tablet 2 mg PO DAILY 03/11/23 05/16/24 losartan 50 mg tablet 50 mg PO DAILY 03/11/23 05/16/24 atorvastatin 10 mg tablet 10 mg PO DAILY 05/24/23 05/16/24 ipratropium bromide 0.02 % 2.5 ml inhalation Q6H PRN wheezing 05/16/24 05/16/24 solution for inhalation Previous Rx's ?Medication ?Instructions ?Recorded inhalational spacing device #10 ea 12/01/21 (Aerochamber MV spacer) Anoro Ellipta 62.5 mcg-25 1 inh inhalation DAILY #60 ea 03/02/24 mcg/actuation powder for inhalation (umeclidinium-vilanterol) azithromycin 250 mg tablet 250 mg PO DAILY 3 days #3 tabs 05/17/24 dextromethorphan HBr 15 mg/5 mL 15 mg (5 mL) PO Q8H PRN cough #118 05/17/24 oral liquid (Cough Relief) mL prednisone 10 mg tablet See Taper PO DIRECTED #30 tabs 05/17/24 azithromycin 250 mg tablet 250 mg PO DAILY 4 days #4 tabs 08/14/24 prednisone 10 mg tablet 10 mg PO DIRECTED #41 tabs 08/14/24 Allergies Allergy/AdvReac Type Severity Reaction Status Date / Time No Known Allergies Allergy Verified 08/13/24 23:22 Review of Systems Review of Systems: Constitutional : No Fever, No Chills ENT/Mouth : No Hoarseness, No sore throat, No Rhinorrhea Eyes: No Redness, No Discharge, No Vision Changes Cardiovascular : No Chest Pain, positive SOB, positive Dyspnea on Exertion, No Edema Respiratory : positive Cough, No Sputum, positive Wheezing, Gastrointestinal : No Nausea, No Vomiting, No Diarrhea, No abdominal Pain Genitourinary : No Dysuria, No Hematuria Musculoskeletal : No joint pain, No Myalgias Skin : No rash Neuro : No Weakness, No Numbness, No Headache All other systems reviewed and are negative PMFSH Past Medical History Attestation statement: The following information was validated with the patient. Source: old records reviewed Medical History Severe chronic obstructive pulmonary disease COPD exacerbation On home O2 Chronic obstructive lung disease Chronic lung disease GERD (gastroesophageal reflux disease) HLD (hyperlipidemia) Hypertension Hypertension Surgical History History of appendectomy Social History Social History Household Members: None Household Members Other:: daughter lives next door Housing: Apartment Do you presently have visiting nurse or other home services: No Alcohol intake: current Alcohol intake frequency: does not drink Alcohol type: beer Patient Tobacco Use Status: Former Tobacco user Tobacco use type: Cigarette Cigarette Packs Per Day: 1 Cigarettes Per Day: 20.0 Years Smoked: 50 e-Cigarette/Vaping Use: Never Used Second Hand Smoke Exposure: No Advance Directives: Yes Advance Directives on File: Yes Advance Directives Date on File: 02/26/22 service: No Current occupational status: employed Physical Exam Vital Signs: Vital Signs: Last Vital Signs Temp 98.0 F 08/13/24 23:21 Pulse 115 H 08/14/24 00:28 Resp 19 08/14/24 00:28 BP 138/81 08/13/24 23:21 Pulse Ox 93 08/13/24 23:21 O2 Del Method Room Air 08/13/24 23:21 BMI result Body Mass Index 25.1 Appearance: Alert. Oriented X3. Mild acute distress. Eyes: Pupils equal, round and reactive to light. ENT: Pharynx normal. Neck: Normal inspection. Neck supple. CVS: tachycardic heart rate and rhythm. Pulses normal. Respiratory: Mild respiratory distress - tachypnea and short phrases. Breath sounds diffuse exp wheezes throughout Abdomen: Soft and nontender. Skin: Skin warm and dry. Normal skin color. Normal skin turgor. Extremities: No lower extremity edema. No calf ttp Neuro: Oriented X 3. No motor deficit. No sensory deficit. CN2-12 intact Medications Administered Generic Name Dose Route Start Last Admin Trade Name Freq PRN Reason Stop Dose Admin Azithromycin 500 mg/ Sodium 250 mls @ 125 mls/hr 08/14/24 00:02 08/14/24 00:14 Chloride IV 08/14/24 02:01 125 mls/hr ONCE ONE Administration Discontinued Medications Generic Name Dose Route Start Last Admin Trade Name Freq PRN Reason Stop Dose Admin Albuterol Sulfate 7.5 mg/ 0 mg 08/13/24 23:43 08/13/24 23:53 Albuterol/Ipratropium 3 ml INHALE 08/13/24 23:44 10 each ONCE ONE Administration Magnesium Sulfate 2 gm in 50 mls @ 150 mls/hr 08/13/24 23:35 08/13/24 23:48 Magnesium Sulfate/H2o IV 08/13/24 23:54 150 mls/hr ONCE ONE Administration Methylprednisolone Sodium Succinate 60 mg 08/13/24 23:35 08/13/24 23:48 Methylprednisolone Sod Succ 125 Mg/2 Ml Vial IVPUSH 08/13/24 23:36 60 mg ONCE ONE Administration Medical Decision Making Medical Decision Making [facility] Narrative: 69 yo male former smoker severe COPD PRN O2 use at home, HLD, GERD, HTN here with abrupt onset dry cough, dyspnea, diffuse wheezes does not respond to home nebs - at this time on arrival bronch protocol, labs, CXR, IV steroids, IV magnesium, IV azithromycin. Suspect COPD vs bronchitis - dispo per work up and improvement with RT interventions Differential Diagnosis Differential Diagnoses: The differential diagnosis associated with the presentation includes COPD, bronchitis, asthma Admission/Observation Consideration of admission/observation: Escalation of care including admission/observation considered markedly improved anticipate DC home after IV azithro patient looks well not labored he feels much better no hypoxia VBG stable Lab Data [facility] Lab Attestation statement: I reviewed the patient's lab results. VBG stable 08/13/24 23:45 08/13/24 23:45 Labs: Lab Results 08/13/24 08/13/24 08/13/24 Range/Units 23:45 23:50 23:59 WBC 8.2 (4.8-10.8) X10*3/uL RBC 4.13 L (4.60-5.80) X10*6/uL Hgb 14.2 (14.0-18.0) g/dl Hct 39.9 L (42.0-52.0) % MCV 96.6 (80.0-98.0) fL MCH 34.4 H (27.0-33.0) pg MCHC 35.6 (31.0-36.0) g/dl RDW 12.0 (11.0-16.0) % Plt Count 270 (160-400) X10*3/uL MPV 10.5 (9.4-12.4) fL Immature Gran % (Auto) 0.6 H (0.0-0.4) % Neut % (Auto) 60.2 (45-73) % Lymph % (Auto) 26.3 (20-40) % [place] % (Auto) 8.5 (2-11) % Eos % (Auto) 3.8 (0-4) % Baso % (Auto) 0.6 (0-2) % Lymph # (Auto) 2.2 (1.2-4.9) X10*3/uL [place] # (Auto) 0.7 (0.1-1.2) X10*3/uL Eos # (Auto) 0.3 (0.0-0.4) X10*3/uL Baso # (Auto) 0.1 (0.0-0.2) X10*3/uL Abs Immat Gran (auto) 0.05 H (0.00-0.03) X10*3/uL Absolute Neuts (auto) 4.9 (2.0-8.3) x10*3/uL Absolute Nucleated RBC 0.000 (0.0-0.012) X10*3/uL Nucleated RBC % (auto) 0.0 (0.0-0.2) /100WBC VBG pH 7.39 (7.32-7.43) VBG pCO2 47 mmHg VBG pO2 70 mmHg VBG HCO3 29 H (22-26) mmol/L VBG O2 Saturation 94.0 % VBG Base Excess 3.8 mmol/L Sodium 143 (135-145) mmol/L Potassium 3.9 (3.3-5.1) mmol/L Chloride 108 (96-108) mmol/L Carbon Dioxide 26 (22-29) mmol/L Anion Gap 13 (12-20) BUN 11 (9-16) mg/dL Creatinine 0.91 (0.5-1.4) mg/dL Estim Creat Clear Calc 74.4 Estimated GFR > 60 Random Glucose 107 (60-115) mg/dL Lactic Acid 2.0 (0.5-2.0) mmol/L Calcium 8.9 (8.4-10.2) mg/dL Total Bilirubin 0.5 (0.0-1.0) mg/dL AST 21 (5-37) U/L ALT 26 (0-40) U/L Alkaline Phosphatase 59 (39-117) U/L Troponin I High Sens < 2.7 (<3.5-35.0) ng/L B-Natriuretic Peptide 90 (<100) pg/mL Total Protein 6.7 (6.5-8.0) g/dL Albumin 4.2 (3.5-5.0) g/dL Influenza Type A (PCR) NEGATIVE (Negative) Influenza Type B (PCR) NEGATIVE (Negative) RSV RNA Qual (PCR) NEGATIVE (Negative) SARS-CoV-2 RNA (RT-PCR) NEGATIVE (Negative) Independent Interpretation I performed an independent interpretation of an: EKG and Plain X-Ray (normal ) Interpretation: Rate: 102 Rhythm: sinus tach [place]: normal Normal P waves. Normal TANJA. Normal QRS complex. ST T wave : nonspecific ST T wave changes, no JOVANY qTC: 474 prior studies: no acute ischemia The study has been interpreted contemporaneously by me. . Radiology Impression Discussion of test interpretation with radiology: I have reviewed the radiologist's reading. External Record Review External record reviewed: Inpatient record and Outpatient record Prescription Management I considered prescription management with: Antibiotic and Other Critical Care Time Critical Care Time Critical Care Time: Yes Total Critical Care Time: 45 Attestation: Time is exclusive of separately billable procedures. Time includes: direct patient care, patient reassessment, coordination of patient care, interpretation of data (laboratory data, pulse oximetry, venous blood gases and chest xrays), review of patient's medical records, documentation of patient care. Procedures excluded from critical care time: electrocardiography. IV magnesium for resp distress/COPD. I attest to this time spent taking care of the patient Discharge Plan Discharge Clinical Impression: Acute exacerbation of chronic obstructive airways disease Patient Disposition: Home, Self-Care Instructions: COPD (Chronic Obstructive Pulmonary Disease) (ED) Additional Instructions: labs reassuring negative for COVID, FLU, RSV no pneumonia on chest xray return for any worsening symptoms or concerns use your nebulizers and inhalers. On azithromycin, call your provider if you develop new ringing in your ears, new problems hearing, dizziness, palpitations, abdominal pain, nausea, or diarrhea. Prescriptions: New prednisone 10 mg tablet 10 mg PO DIRECTED Qty: 41 0RF Rx Instructions: see taper instructions 60mg on day 1-5, 40mg on day 6, 30mg on day 7, 20mg on day 8, 10mg on day 9, 5mg on day 10 azithromycin 250 mg tablet 250 mg PO DAILY 4 Days Qty: 4 0RF Rx Instructions: start on day 2 of therapy No Action Anoro Ellipta 62.5-25 mcg/actuation blister with device 1 inh inhalation DAILY Qty: 60 6RF multivitamin Tablet 1 tab PO DAILY omeprazole 20 mg Capsule,Delayed Release(Dr/Ec) 20 mg PO DAILY@0630 ([facility] [place]) Aerochamber MV Spacer See Rx Instructions .Route Qty: 10 0RF Rx Instructions: As directed losartan 50 mg tablet 50 mg PO DAILY albuterol sulfate 2.5 mg /3 mL (0.083 %) solution for nebulization 2.5 mg inhalation TID PRN (Reason: Shortness Of Breath Or Wheezing) amlodipine 2.5 mg tablet 2.5 mg PO DAILY albuterol sulfate 90 mcg/actuation HFA aerosol inhaler 2 puff inhalation QID PRN (Reason: wheezing) doxazosin 2 mg tablet 2 mg PO DAILY atorvastatin 10 mg tablet 10 mg PO DAILY ipratropium bromide 0.02 % solution 2.5 ml inhalation Q6H PRN (Reason: wheezing) Cough Relief 15 mg/5 mL liquid 15 mg PO Q8H PRN (Reason: cough) Qty: 118 1RF prednisone 10 mg tablet See Taper PO DIRECTED Qty: 30 0RF Taper: Prednisone 40 mg daily for 3 Days and 0 Hour 30 mg daily for 3 Days and 0 Hour 20 mg daily for 3 Days and 0 Hour 10 mg daily for 3 Days and 0 Hour Rx Instructions: see taper instructions azithromycin 250 mg tablet 250 mg PO DAILY 3 Days Qty: 3 0RF Rx Instructions: start on day 2 of therapy Print Language: Uzbek
[2024-08-13 23:57] LABS: MANUAL DIFF FLAG NO
[2024-08-13 23:58] LABS: Venous Blood Gas Refer to POC result
[2024-08-14] LABS: Basophils Absolute Auto 0.1 X10*3/uL (0.0-0.2); Basophils Percent Auto 0.6 % (0-2); Eosinophils Absolute Auto 0.3 X10*3/uL (0.0-0.4); Eosinophils Percent Auto 3.8 % (0-4); Hematocrit 39.9 % (42.0-52.0); Hemoglobin 14.2 g/dl (14.0-18.0); Imm Gran Abs Auto 0.05 X10*3/uL (0.00-0.03); Imm Gran Pct Auto 0.6 % (0.0-0.4); Lymphocytes Absolute Auto 2.2 X10*3/uL (1.2-4.9); Lymphocytes Percent Auto 26.3 % (20-40); Mean Corpuscular HGB Conc 35.6 g/dl (31.0-36.0); Mean Corpuscular Hemoglobin 34.4 pg (27.0-33.0); Mean Corpuscular Volume 96.6 fL (80.0-98.0); Mean Platelet Volume 10.5 fL (9.4-12.4); Monocytes Absolute Auto 0.7 X10*3/uL (0.1-1.2); Monocytes Percent Auto 8.5 % (2-11); Neutrophils Absolute Auto 4.9 x10*3/uL (2.0-8.3); Neutrophils Percent Auto 60.2 % (45-73); Platelet Count 270 X10*3/uL (160-400); Red Blood Count 4.13 X10*6/uL (4.60-5.80); White Blood Count 8.2 X10*3/uL (4.8-10.8)
[2024-08-14 00:03] LABS: VBG Base Excess 3.8 mmol/L; VBG HCO3 29 mmol/L (22-26); VBG pCO2 47 mmHg; VBG pH 7.39 (7.32-7.43); VBG pO2 70 mmHg
[2024-08-14] MEDS: Azithromycin 500 MG in 0.9 % Sodium Chloride 250 ML 125 MG IV (00:14)
[2024-08-14 00:17] LABS: Alanine Aminotransferase 26 U/L (0-40); Albumin Level 4.2 g/dL (3.5-5.0); Alkaline Phosphatase 59 U/L (39-117); Anion Gap 13 (12-20); Aspartate Amino Transferase 21 U/L (5-37); Bilirubin Total 0.5 mg/dL (0.0-1.0); Blood Urea Nitrogen 11 mg/dL (9-16); Calcium 8.9 mg/dL (8.4-10.2); Carbon Dioxide 26 mmol/L (22-29); Chloride 108 mmol/L (96-108); Creatinine Clr Calc Pharmacy 74.4; Estimated Glomerular Filt Rate > 60; Glucose Random 107 mg/dL (60-115); Potassium 3.9 mmol/L (3.3-5.1); Sodium 143 mmol/L (135-145); Total Protein 6.7 g/dL (6.5-8.0)
[2024-08-14 00:22] LABS: Troponin-I High Sensitivity < 2.7 ng/L (<3.5-35.0)
[2024-08-14 00:24] LABS: B Type Natriuretic Peptide 90 pg/mL (<100)
[2024-08-14 00:28] VITALS: PULSE 115; RESP 19
[2024-08-14 00:38] LABS: Influenza A PCR NEGATIVE (Negative); Influenza B PCR NEGATIVE (Negative); Resp Syncy Virus RNA Qual PCR NEGATIVE (Negative); SARS COV2 PCR INHOUSE NEGATIVE (Negative)
[2024-08-14 01:41] VITALS: PULSE 103; RESP 19; O2SAT 96
[2024-08-14] MEDS: Albuterol Sulfate 2.5 MG, Albuterol/Iprat 2.5/0.5MG 3 ML 3 ML INHALE (01:41)
[2024-08-14 02:19] VITALS: BP 127/62; PULSE 111; RESP 16; O2SAT 93
[2024-08-14 02:57] VITALS: BP 143/73; PULSE 110; RESP 20; TEMP 36.8; O2SAT 92
[2024-08-14 03:04] VITALS: BP 143/73; PULSE 110; RESP 20; TEMP 36.8; O2SAT 92
== END 2024-08-14 03:05 | disposition home or self-care (01) ==
PROVIDERS: Emergency Provider Emergency Medicine; PCP Internal Medicine
DX: J44.1 Chronic obstructive pulmonary disease with (acute) exacerbation (principal); R05.9 Cough, unspecified; R06.02 Shortness of breath; I10 Essential (primary) hypertension
CPT/HCPCS: 0241U; 36415; 71045; 80053; 82803; 83605; 83880; 84484; 85025; 87040; 93005; 94640; 96365; 96366; 96367; 96375; 99285; J0456; J2919; J3475

== ENCOUNTER → 2024-08-13 23:37 | Outpatient (BNV) | payer MEDICARE, SELFPAY | PROVIDERS: Emergency Provider Emergency Medicine; PCP Internal Medicine; Visit Provider Radiology Diagnostic Radiology | DX: R05.9 Cough, unspecified (principal) | CPT/HCPCS: 71045 ==

== ENCOUNTER → 2024-08-13 23:51 | Outpatient (BNV) | payer MEDICARE, SELFPAY | PROVIDERS: Emergency Provider Emergency Medicine; PCP Internal Medicine; Visit Provider Internal Medicine | DX: R00.0 Tachycardia, unspecified (principal) | CPT/HCPCS: 93010 ==

== ENCOUNTER 2024-08-17 12:41 | Outpatient (REF) | payer MEDICARE, SELFPAY ==
[2024-08-17 13:16] LABS: MANUAL DIFF FLAG NO
[2024-08-17 14:26] LABS: Basophils Percent Auto 0.4 % (0-2); Eosinophils Absolute Auto 0.1 X10*3/uL (0.0-0.4); Eosinophils Percent Auto 0.7 % (0-4); Hemoglobin 13.7 g/dl (14.0-18.0); Imm Gran Abs Auto 0.16 X10*3/uL (0.00-0.03); Imm Gran Pct Auto 1.4 % (0.0-0.4); Lymphocytes Absolute Auto 2.7 X10*3/uL (1.2-4.9); Lymphocytes Percent Auto 24.1 % (20-40); Mean Corpuscular HGB Conc 35.1 g/dl (31.0-36.0); Mean Corpuscular Hemoglobin 34.4 pg (27.0-33.0); Mean Platelet Volume 10.7 fL (9.4-12.4); Monocytes Percent Auto 8.4 % (2-11); Neutrophils Absolute Auto 7.4 x10*3/uL (2.0-8.3); Platelet Count 257 X10*3/uL (160-400); Red Blood Count 3.98 X10*6/uL (4.60-5.80); Red Cell Distribution Width 11.9 % (11.0-16.0); White Blood Count 11.3 X10*3/uL (4.8-10.8)
[2024-08-19 03:34] LABS: Class Alternaria alternata 0/1; Class Aspergillus fumigatus 1; Class Bermuda Grass 0; Class Birch 0/1; Class Cat Dander 3; Class Cladosporium herbarum 0/1; Class Cockroach 0/1; Class Common Ragweed 1; Class Cottonwood 0/1; Class Derm. pterony 0/1; Class Dermatophagoides farinae 0/1; Class Dog Dander 3; Class Elm 0/1; Class Maple Box Elder 0; Class Mountain Cedar 0; Class Mouse Urine Protein 0; Class Mugwort 0/1; Class Oak 0; Class Penicillium crysogenum 0/1; Class Rough Pigweed 0; Class Sheep Sorrel 0; Class Sycamore 0/1; Class Timothy Grass 0/1; Class Walnut Tree 0/1; Class White Ash 1; Class White Mulberry 0; D001 IgE D pteronyssinus 0.18 kU/L; D002 - IgE D farinae 0.19 kU/L; E001 - IgE Cat Dander 8.07 kU/L; E072-IgE Mouse Urine <0.10 kU/L; G002 IgE Bermuda Grass <0.10 kU/L; G006 - IgE Timothy Grass 0.17 kU/L; I006-IgE Cockroach, German 0.14 kU/L; Immunoglobulin E 561 kU/L (<OR=114); M001 IgE Penicillium chrysogen 0.12 kU/L; M002 - IgE Cladosporium herbar 0.14 kU/L; M003 - IgE Aspergillus fumigat 0.36 kU/L; M006 - IgE Alternaria alternat 0.32 kU/L; T001 IgE Maple/Box Elder <0.10 kU/L; T003 IgE Common Silver Birch 0.18 kU/L; T006 - IgE Cedar, Mountain <0.10 kU/L; T007 - IgE Oak, White <0.10 kU/L; T008 IgE Elm, American 0.14 kU/L; T010 - IgE Walnut 0.26 kU/L; T011 - IgE Maple Leaf Sycamore 0.11 kU/L; T015 - IgE Ash, White 0.36 kU/L; T070 - IgE White Mulberry <0.10 kU/L; W001 - IgE Ragweed, Short 0.44 kU/L; W006 - IgE Mugwort 0.12 kU/L; W014 IgE Pigweed, Common <0.10 kU/L; W018 IgE Sheep Sorrel <0.10 kU/L
== END 2024-08-17 12:42 | disposition home or self-care (01) ==
LOC: HO.LAB 12:41
PROVIDERS: Visit Provider Internal Medicine Pulmonary Disease
DX: Z91.09 Other allergy status, other than to drugs and biological substances (principal); J44.9 Chronic obstructive pulmonary disease, unspecified; Z87.891 Personal history of nicotine dependence
CPT/HCPCS: 36415; 82785; 85025; 86003; 99212

== ENCOUNTER 2024-08-17 12:41 | Outpatient (AMB) | payer MEDICARE, SELFPAY ==
--- NOTE | 2024-08-17 12:50 | A.OFFVIS_ITS ---
Vital Signs 08/17/24 12:51 Height 5 ft 9 in Weight 160 lb BMI 23.6 BP 140/82 H Blood Pressure Location Rt brachial Position Sitting Pulse 73 Pulse Source Doppler Pulse Oximetry (%) 94 Oxygen Delivery Method Room Air Intake Visit Reasons: copd Allergies No Known Allergies Allergy (Verified 08/17/24 12:56) HPI HPI copd: Details: 69-year-old gentleman, recent 50 pack-year smoker, quit 09/2022, now followed for severe COPD. He continues Anoro, ipratropium, and albuterol MDI with good control of his symptoms. Patient did have recent episode of wheezing and dyspnea after exposure to tree pollen while playing golf, he was evaluated in the emergency room and treated with a course of prednisone with significant improvement. [facility] Medical History Severe chronic obstructive pulmonary disease COPD exacerbation On home O2 Chronic obstructive lung disease Chronic lung disease GERD (gastroesophageal reflux disease) HLD (hyperlipidemia) Hypertension Hypertension Surgical History History of appendectomy Social History Household Members: None Household Members Other:: daughter lives next door Housing: Apartment Do you presently have visiting nurse or other home services: No Alcohol intake: current Alcohol intake frequency: does not drink Alcohol type: beer Patient Tobacco Use Status: Former Tobacco user Tobacco use type: Cigarette Cigarette Packs Per Day: 1 Cigarettes Per Day: 20.0 Years Smoked: 50 e-Cigarette/Vaping Use: Never Used Second Hand Smoke Exposure: No Advance Directives Date on File: 02/26/22 service: No Current occupational status: employed Review of Systems Const Denies daytime sleepiness, Denies excessive sweating, Denies fatigue, Denies fever(s), Denies lethargy, Denies malaise, Denies night sweats, Denies snoring and Denies weight loss Eyes Denies blurry vision and Denies itchy eyes ENT Denies nasal congestion, Denies post nasal drip, Denies sinus pain, Denies sinus pressure and Denies other ( Thrush) Card Denies chest pain, Denies pedal edema, Denies dyspnea, Denies orthopnea and Denies paroxysmal nocturnal dyspnea Resp Denies cough, Denies hemoptysis, Denies excessive phlegm production, Denies dyspnea, Denies snoring and Denies wheezing GI Denies abdominal pain and Denies heartburn Musc Denies myalgias, Denies arthralgias and Denies joint swelling Skin/Breast Denies rash Neuro Denies memory loss and Denies seizure-like activity Psych Denies abnormal sleep pattern, Denies anxiety and Denies memory loss Endo Denies excessive sweating, Denies fatigue and Denies heat intolerance Mikey/Lymph Denies easy bruising Aller/Immun Denies itchy eyes, Denies seasonal rhinorrhea and Denies wheezing Physical Exam Vital Signs: Last Vital Signs Pulse 73 08/17/24 12:51 BP 140/82 H 08/17/24 12:51 Pulse Ox 94 08/17/24 12:51 Oxygen Delivery Method Room Air 08/17/24 12:51 BMI result Body Mass Index 23.6 Const General: no acute distress and alert Nutritional Appearance: not obese Orientation/consciousness: Other orientation findings ( oriented) HEENT Head: Yes atraumatic Eyes General: appearance normal, both eyes and all related structures Sclerae: sclerae normal EOM: EOMs intact bilaterally Neck Neck: Yes supple Lymphatic: no lymphadenopathy noted Resp Effort & Inspection: normal respiratory effort and no use of accessory muscles Auscultation: clear to auscultation bilaterally Cardio Rate: regular rate Rhythm: regular rhythm Heart sounds: no gallops, no murmurs and no rubs Skin General skin exam: other ( warm) Extrem General: No clubbing, No cyanosis and No edema Assessment & Plan Assessment & Plan (1) Severe chronic obstructive pulmonary disease: Code(s): J44.9 - Chronic obstructive pulmonary disease, unspecified Category: Medical Plan: Well controlled on current regimen of Anoro, albuterol MDI/nebs. Continue current regimen. (2) Personal history of nicotine dependence: Code(s): Z87.891 - Personal history of nicotine dependence Category: Medical Plan: Results of lung cancer screening CT chest reviewed, no worrisome nodules, continue with yearly screening. (3) Environmental allergies: Code(s): Z91.09 - Other allergy status, other than to drugs and biological substances Category: Medical Plan: Will obtain IgE level, CBC with differential, and RAST panel for further evaluation. Orders: Orders Resp Allergy Profile Region I Today Z91.09 - Other allergy status, other than to drugs and biological substances Complete Blood Count Auto Diff Today Z91.09 - Other allergy status, other than to drugs and biological substances Coding Level of Care Code Est Pt Level 4 (17400) Complex EM visit Add On G2211 Diagnoses Severe chronic obstructive pulmonary disease J44.9 Personal history of nicotine dependence Z87.891 Environmental allergies Z91.09
[2024-08-17 12:51] VITALS: BP 140/82; PULSE 73; O2SAT 94; BMI 23.6
== END 2024-08-17 13:07 | disposition home or self-care (01) ==
LOC: HO.HPS 12:41
PROVIDERS: PCP Internal Medicine; Visit Provider Internal Medicine Pulmonary Disease
DX: J44.9 Chronic obstructive pulmonary disease, unspecified (principal); Z87.891 Personal history of nicotine dependence; Z91.09 Other allergy status, other than to drugs and biological substances
CPT/HCPCS: 99214; G2211

== ENCOUNTER 2024-09-17 01:49 | Emergency (ER) | payer MEDICARE, SELFPAY ==
[2024-09-17] VITALS (8 sets, daily range): BP systolic 121–181; BP diastolic 53–93; PULSE 99–109; RESP 17–35; TEMP 36.6–36.9; O2SAT 85–94; BMI 29.0
--- NOTE | ~2024-09-17 | XR_ITS ---
CLINICAL HISTORY: sob 1 view chest x-ray. Comparison: CR - XR CHEST 1V - 08/14/24 00:18 EDT Findings: The lungs appear clear. There is no consolidation, effusion, or pneumothorax. Cardiomediastinal silhouette is within normal limits. IMPRESSION: No acute cardiopulmonary abnormality. This document has been electronically signed by: Sherif Marley MD on 09/17/2024 03:40:11
--- NOTE | 2024-09-17 01:58 | ECG_ITS ---
Test Reason : SOB Blood Pressure : */* mmHG Vent. Rate : 104 BPM Atrial Rate : 104 BPM P-R Int : 142 ms QRS Dur : 100 ms QT Int : 356 ms P-R-T Axes : 85 86 67 degrees QTcB Int : 468 ms Sinus tachycardia Biatrial enlargement Abnormal ECG When compared with ECG of 13-Aug-2024 23:51, No significant change was found Referred By: Heidi Fry Electronically Signed By: Kvng Sanchez
--- NOTE | 2024-09-17 02:05 | ED_ITS ---
HPI - General Adult General Chief complaint: Dyspnea Stated complaint: SOB Time Seen by Provider: 09/17/24 01:57 Source: patient Limitations: no limitations History of Present Illness ED Provider: Heidi rFy PA-C HPI narrative: 69-year-old male with a history of severe COPD, ongoing tobacco abuse, hyperlipidemia, hypertension, GERD who presents with acute onset shortness of breath. Patient states he was out watching a game, he began to feel short of breath. On arrival patient was 85% on room air. He states he uses supplemental oxygen at night only. Denies recent cough or cold symptoms or fever. Denies chest pain. Related Data Home Medications ?Medication ?Instructions ?Recorded ?Confirmed multivitamin 1 tab PO DAILY 01/31/21 05/16/24 omeprazole 20 mg capsule,delayed 20 mg PO DAILY@0630 01/31/21 05/16/24 release albuterol sulfate 2.5 mg/3 mL 2.5 mg inhalation TID PRN 03/11/23 05/16/24 (0.083 %) solution for nebulization Shortness Of Breath Or Wheezing amlodipine 2.5 mg tablet 2.5 mg PO DAILY 03/11/23 05/16/24 doxazosin 2 mg tablet 2 mg PO DAILY 03/11/23 05/16/24 losartan 50 mg tablet 50 mg PO DAILY 03/11/23 05/16/24 atorvastatin 10 mg tablet 10 mg PO DAILY 05/24/23 05/16/24 ipratropium bromide 0.02 % 2.5 ml inhalation Q6H PRN wheezing 05/16/24 05/16/24 solution for inhalation Previous Rx's ?Medication ?Instructions ?Recorded inhalational spacing device #10 ea 12/01/21 (Aerochamber MV spacer) dextromethorphan HBr 15 mg/5 mL 15 mg (5 mL) PO Q8H PRN cough #118 05/17/24 oral liquid (Cough Relief) mL azithromycin 250 mg tablet 250 mg PO DAILY 4 days #4 tabs 08/14/24 prednisone 10 mg tablet 10 mg PO DIRECTED #41 tabs 08/14/24 fluticasone fur. 200 mcg-umeclid 1 inh inhalation DAILY #1 ea 08/19/24 62.5 mcg-vilant 25 mcg inhalat.powder (Trelegy Ellipta) albuterol sulfate 90 mcg/actuation 2 puff inhalation QID PRN wheezing 08/24/24 aerosol inhaler #1 ea albuterol sulfate 2.5 mg/3 mL 2.5 mg (3 mL) inhalation Q4-6H PRN 09/17/24 (0.083 %) solution for nebulization shortness of breath or wheezing #75 mL amoxicillin 875 mg-potassium 1 tab PO Q12H #20 tabs 09/17/24 clavulanate 125 mg tablet doxycycline hyclate 100 mg capsule 100 mg PO BID #20 caps 09/17/24 prednisone 20 mg tablet 40 mg (2 x 20 mg) PO DAILY #8 tabs 09/17/24 Allergies Allergy/AdvReac Type Severity Reaction Status Date / Time No Known Allergies Allergy Verified 09/17/24 02:01 Review of Systems 2 Review of Systems: Yes all other systems are reviewed and are negative Constitutional: Constitutional: Denies fatigue and Denies fever(s) Cardiovascular: Cardiovascular: Denies chest pain and Reports dyspnea Respiratory: Respiratory: Denies chest congestion, Denies cough, Reports dyspnea and Reports wheezing Endocrine: Endocrine: Denies fatigue Allergic/Immunologic: Allergic/Immunologic: Reports wheezing PMF Past Medical History Attestation statement: The following information was validated with the patient. Medical History Severe chronic obstructive pulmonary disease COPD exacerbation On home O2 Chronic obstructive lung disease Chronic lung disease GERD (gastroesophageal reflux disease) HLD (hyperlipidemia) Hypertension Hypertension Surgical History History of appendectomy Social History Social History Household Members: None Household Members Other:: daughter lives next door Housing: Apartment Do you presently have visiting nurse or other home services: No Alcohol intake: current Alcohol intake frequency: does not drink Alcohol type: beer Patient Tobacco Use Status: Former Tobacco user Tobacco use type: Cigarette Cigarette Packs Per Day: 1 Cigarettes Per Day: 20.0 Years Smoked: 50 e-Cigarette/Vaping Use: Never Used Second Hand Smoke Exposure: No Advance Directives: Yes Advance Directives on File: Yes Advance Directives Date on File: 02/26/22 Do you have a plan to hurt others: No Plan service: No Current occupational status: employed Physical Exam ED Vital Signs: Vital Signs - 24 hr 09/17/24 01:59 09/17/24 02:28 09/17/24 02:45 Temperature 97.9 F Pulse Rate 105 H 109 H 109 H Respiratory Rate 35 H 20 23 H Blood Pressure 181/93 H 179/82 H Pulse Oximetry 85 L 92 Oxygen Delivery Method Room Air Room Air 09/17/24 02:59 Temperature 97.8 F Pulse Rate 102 H Respiratory Rate 20 Blood Pressure 143/73 H Pulse Oximetry 94 Oxygen Delivery Method Room Air BMI result Body Mass Index 29.0 Const Other: Alert Orientation/consciousness: patient oriented x3 Resp Other: Tachypneic, poor air movement, expiratory wheezes noted Cardio Other: Normal peripheral perfusion Skin Other: Warm dry no rash Neuro General: patient oriented x3, gait normal, no focal motor deficits and CN's II- XI intact bilaterally Psych Other: Cooperative Course Reevaluation(s) Reevaluation #1: This is sepsis focused exam, performed on September 17 at 1:57 a.m. The patient is presenting with COPD exacerbation, in addition to screening labs, we will be obtaining blood cultures, lactic and starting ceftriaxone Time: : Reevaluation #2: Ambulated the patient he maintain oxygen saturation of 93% on room air Medications Administered Generic Name Dose Route Start Last Admin Trade Name Freq PRN Reason Stop Dose Admin Magnesium Sulfate 2 gm in 50 mls @ 25 mls/hr 09/17/24 01:57 09/17/24 02:41 Magnesium Sulfate/H2o IV 09/17/24 03:56 Infused ONCE ONE Infusion Doxycycline Hyclate 100 mg/ 250 mls @ 166.67 mls/hr 09/17/24 02:20 09/17/24 02:26 Sodium Chloride IV 09/17/24 03:49 166.67 mls/hr ONCE ONE Administration Discontinued Medications Generic Name Dose Route Start Last Admin Trade Name Freq PRN Reason Stop Dose Admin Ceftriaxone Sodium 2 gm 09/17/24 01:57 09/17/24 02:15 Ceftriaxone Sodium 2 Gm Vial IVPUSH 09/17/24 01:58 2 gm ONCE ONE Administration Albuterol Sulfate 7.5 mg/ 0 mg 09/17/24 02:09 09/17/24 02:13 Albuterol/Ipratropium 3 ml INHALE 09/17/24 02:10 1 each ONCE ONE Administration Sodium Chloride 1,000 mls @ 999 mls/hr 09/17/24 02:00 09/17/24 02:14 Ns IV 09/17/24 03:00 999 mls/hr .Q1H1M [place] Administration Methylprednisolone Sodium Succinate 125 mg 09/17/24 01:57 09/17/24 02:13 Methylprednisolone Sod Succ 125 Mg/2 Ml Vial IVPUSH 09/17/24 01:58 125 mg ONCE ONE Administration Medical Decision Making Medical Decision Making MDM Narrative: 69-year-old male with a history of severe COPD, ongoing tobacco abuse, hyperlipidemia, hypertension, GERD who presents with acute onset shortness of breath. Patient states he was out watching a game, he began to feel short of breath. On arrival patient was 85% on room air. He states he uses supplemental oxygen at night only. Denies recent cough or cold symptoms or fever. Denies chest pain. Problem: COPD History: Per patient I have considered the following differential diagnoses: Sepsis, COPD exacerbation, pneumonia, bronchitis, viral syndrome Plan: Patient here with the acute onset COPD exacerbation, we will be screening basic labs, obtaining a chest x-ray, giving Combivent, Solu-Medrol and magnesium. Patient will be worked up for sepsis as well, blood cultures and lactic will be obtained. Starting ceftriaxone and doxycycline giving 1L IVF. To note he is afebrile, has not had preceding cough or cold symptoms, no viral syndrome. I have independently reviewed the following tests: Labs: No leukocytosis, not anemic, viral panel negative, no electrolyte abnormality, lactic 1.5 Chest x-ray: Per my read, no pneumonia no pleural effusion or pulmonary edema EKG: Sinus tachycardia, rate of 104, no ischemic changes no ectopy, QTC 468 Lab Data 09/17/24 02:09 09/17/24 02:09 Labs: Lab Results 09/17/24 09/17/24 09/17/24 Range/Units 02:08 02:09 02:11 WBC 9.6 (4.8-10.8) X10*3/uL RBC 4.28 L (4.60-5.80) X10*6/uL Hgb 14.8 (14.0-18.0) g/dl Hct 41.5 L (42.0-52.0) % MCV 97.0 (80.0-98.0) fL MCH 34.6 H (27.0-33.0) pg MCHC 35.7 (31.0-36.0) g/dl RDW 11.8 (11.0-16.0) % Plt Count 286 (160-400) X10*3/uL MPV 10.0 (9.4-12.4) fL Immature Gran % (Auto) 0.5 H (0.0-0.4) % Neut % (Auto) 49.1 (45-73) % Lymph % (Auto) 36.3 (20-40) % [place] % (Auto) 9.9 (2-11) % Eos % (Auto) 3.6 (0-4) % Baso % (Auto) 0.6 (0-2) % Lymph # (Auto) 3.5 (1.2-4.9) X10*3/uL [place] # (Auto) 1.0 (0.1-1.2) X10*3/uL Eos # (Auto) 0.4 (0.0-0.4) X10*3/uL Baso # (Auto) 0.1 (0.0-0.2) X10*3/uL Abs Immat Gran (auto) 0.05 H (0.00-0.03) X10*3/uL Absolute Neuts (auto) 4.7 (2.0-8.3) x10*3/uL Absolute Nucleated RBC 0.000 (0.0-0.012) X10*3/uL Nucleated RBC % (auto) 0.0 (0.0-0.2) /100WBC Sodium 140 (135-145) mmol/L Potassium 3.5 (3.3-5.1) mmol/L Chloride 103 (96-108) mmol/L Carbon Dioxide 25 (22-29) mmol/L Anion Gap 16 (12-20) BUN 9 (9-16) mg/dL Creatinine 1.00 (0.5-1.4) mg/dL Estim Creat Clear Calc 67.9 Estimated GFR > 60 Random Glucose 87 (60-115) mg/dL Lactic Acid 1.5 (0.5-2.0) mmol/L Calcium 9.1 (8.4-10.2) mg/dL Magnesium 2.0 (1.6-2.6) mg/dL Total Bilirubin 0.6 (0.0-1.0) mg/dL AST 22 (5-37) U/L ALT 21 (0-40) U/L Alkaline Phosphatase 62 (39-117) U/L Total Protein 7.0 (6.5-8.0) g/dL Albumin 4.5 (3.5-5.0) g/dL Influenza Type A (PCR) NEGATIVE (Negative) Influenza Type B (PCR) NEGATIVE (Negative) RSV RNA Qual (PCR) NEGATIVE (Negative) SARS-CoV-2 RNA (RT-PCR) NEGATIVE (Negative) Discharge Plan Discharge Clinical Impression: COPD exacerbation, Bronchitis Patient Disposition: Home, Self-Care Instructions: Acute Bronchitis (ED), COPD (Chronic Obstructive Pulmonary Disease) (ED) Additional Instructions: You are being treated for a COPD exacerbation/bronchitis. See home care instructions. Use your home nebulizer and inhalers as directed. Take the steroid as directed. Take the Augmentin as directed take the doxycycline as directed. Your screening labs were overall normal, you were tested for influenza RSV and COVID the viral panel was negative. You do not have pneumonia on your chest x-ray. Follow up with your primary care provider as needed. Prescriptions: New prednisone 20 mg tablet 40 mg PO DAILY Qty: 8 0RF amoxicillin-pot clavulanate 875-125 mg tablet 1 tab PO Q12H Qty: 20 0RF doxycycline hyclate 100 mg capsule 100 mg PO BID Qty: 20 0RF albuterol sulfate 2.5 mg /3 mL (0.083 %) solution for nebulization 2.5 mg inhalation Q4-6H PRN (Reason: shortness of breath or wheezing) Qty: 75 0RF No Action Trelegy Ellipta 200-62.5-25 mcg blister with device 1 inh inhalation DAILY Qty: 1 6RF albuterol sulfate 90 mcg/actuation HFA aerosol inhaler 2 puff inhalation QID PRN (Reason: wheezing) Qty: 1 6RF multivitamin Tablet 1 tab PO DAILY omeprazole 20 mg Capsule,Delayed Release(Dr/Ec) 20 mg PO DAILY@0630 (DME) Aerochamber MV Spacer See Rx Instructions .Route Qty: 10 0RF Rx Instructions: As directed losartan 50 mg tablet 50 mg PO DAILY albuterol sulfate 2.5 mg /3 mL (0.083 %) solution for nebulization 2.5 mg inhalation TID PRN (Reason: Shortness Of Breath Or Wheezing) amlodipine 2.5 mg tablet 2.5 mg PO DAILY doxazosin 2 mg tablet 2 mg PO DAILY atorvastatin 10 mg tablet 10 mg PO DAILY ipratropium bromide 0.02 % solution 2.5 ml inhalation Q6H PRN (Reason: wheezing) Cough Relief 15 mg/5 mL liquid 15 mg PO Q8H PRN (Reason: cough) Qty: 118 1RF prednisone 10 mg tablet 10 mg PO DIRECTED Qty: 41 0RF Rx Instructions: see taper instructions 60mg on day 1-5, 40mg on day 6, 30mg on day 7, 20mg on day 8, 10mg on day 9, 5mg on day 10 azithromycin 250 mg tablet 250 mg PO DAILY 4 Days Qty: 4 0RF Rx Instructions: start on day 2 of therapy Print Language: Luxembourgish
[2024-09-17] MEDS: methylPREDNISolone Sod Succ 125 MG/2 ML VIAL IVPUSH (02:13)
[2024-09-17] MEDS: Albuterol Sulfate 7.5 MG, Albuterol/Iprat 2.5/0.5MG 3 ML 3 ML INHALE (02:13)
[2024-09-17] MEDS: Magnesium Sulfate/H2O 2 GM/50 ML PIGGYBACK IV (02:13)
[2024-09-17] MEDS: 0.9 % Sodium Chloride 1,000 ML 999 ML IV (02:14)
[2024-09-17] MEDS: cefTRIAXone sodium 2 GM VIAL IVPUSH (02:15)
[2024-09-17 02:16] LABS: MANUAL DIFF FLAG NO
[2024-09-17 02:20] LABS: Basophils Absolute Auto 0.1 X10*3/uL (0.0-0.2); Basophils Percent Auto 0.6 % (0-2); Eosinophils Absolute Auto 0.4 X10*3/uL (0.0-0.4); Eosinophils Percent Auto 3.6 % (0-4); Hematocrit 41.5 % (42.0-52.0); Hemoglobin 14.8 g/dl (14.0-18.0); Imm Gran Abs Auto 0.05 X10*3/uL (0.00-0.03); Imm Gran Pct Auto 0.5 % (0.0-0.4); Lymphocytes Absolute Auto 3.5 X10*3/uL (1.2-4.9); Lymphocytes Percent Auto 36.3 % (20-40); Mean Corpuscular HGB Conc 35.7 g/dl (31.0-36.0); Mean Corpuscular Hemoglobin 34.6 pg (27.0-33.0); Monocytes Percent Auto 9.9 % (2-11); Neutrophils Absolute Auto 4.7 x10*3/uL (2.0-8.3); Neutrophils Percent Auto 49.1 % (45-73); Platelet Count 286 X10*3/uL (160-400); Red Blood Count 4.28 X10*6/uL (4.60-5.80); Red Cell Distribution Width 11.8 % (11.0-16.0); White Blood Count 9.6 X10*3/uL (4.8-10.8)
[2024-09-17] MEDS: Doxycycline Hyclate 100 MG in 0.9 % Sodium Chloride 250 ML 166.67 MG IV (02:26)
--- NOTE | 2024-09-17 02:40 | PC.NURSE ---
pt ambulatory into ed, a&ox4, respirations even but labored. pt reports he had sudden onset of shortness of breath while sitting and watching tv, at time of triage pt sating 82-86% on room air. pt brought back to room, jannieo neb administered, 20g right ac and 18f left forearm. pt medicated per jun. pt reports he only wears o2 as needed. sepsis alert called at 0157.
[2024-09-17 02:43] LABS: Lactic Acid 1.5 mmol/L (0.5-2.0)
[2024-09-17 02:56] LABS: Influenza A PCR NEGATIVE (Negative); Influenza B PCR NEGATIVE (Negative); Resp Syncy Virus RNA Qual PCR NEGATIVE (Negative); SARS COV2 PCR INHOUSE NEGATIVE (Negative)
[2024-09-17] MEDS: guaiFEN/Codeine SF 200/20/10ML 10 ML LIQUID PO (02:59)
[2024-09-17 03:04] LABS: Alanine Aminotransferase 21 U/L (0-40); Albumin Level 4.5 g/dL (3.5-5.0); Anion Gap 16 (12-20); Aspartate Amino Transferase 22 U/L (5-37); Bilirubin Total 0.6 mg/dL (0.0-1.0); Blood Urea Nitrogen 9 mg/dL (9-16); Calcium 9.1 mg/dL (8.4-10.2); Carbon Dioxide 25 mmol/L (22-29); Chloride 103 mmol/L (96-108); Creatinine Clr Calc Pharmacy 67.9; Estimated Glomerular Filt Rate > 60; Glucose Random 87 mg/dL (60-115); Potassium 3.5 mmol/L (3.3-5.1); Sodium 140 mmol/L (135-145)
[2024-09-17 03:11] LABS: Alkaline Phosphatase 62 U/L (39-117)
[2024-09-17] MEDS: Albuterol Sulfate 7.5 MG, Albuterol Sulfate (0.083%) 2.5 MG 10 MG INHALE (03:16)
--- NOTE | 2024-09-17 03:25 | PC.NURSE ---
pt taken for ambulating pulse ox, pt maintained sats of 92-96%. pt denies sob and dizziness. aubrie drew aware
== END 2024-09-17 04:10 | disposition home or self-care (01) ==
PROVIDERS: Physician Assistant Medical; Emergency Provider Emergency Medicine Emergency Medical Services
DX: J44.1 Chronic obstructive pulmonary disease with (acute) exacerbation (principal); J40 Bronchitis, not specified as acute or chronic; R06.02 Shortness of breath; R00.0 Tachycardia, unspecified; F17.210 Nicotine dependence, cigarettes, uncomplicated; Z79.899 Other long term (current) drug therapy; Z03.818 Encounter for observation for suspected exposure to other biological agents ruled out
CPT/HCPCS: 0241U; 71045; 80053; 83605; 83735; 85025; 87040; 93005; 94640; 96365; 96366; 96367; 96375; 99285; J0696; J1271; J2919; J3475

== ENCOUNTER → 2024-09-17 01:57 | Outpatient (BNV) | payer MEDICARE, SELFPAY | PROVIDERS: Emergency Provider Emergency Medicine Emergency Medical Services; Visit Provider Radiology Diagnostic Radiology | DX: R06.02 Shortness of breath (principal) | CPT/HCPCS: 71045 ==

== ENCOUNTER → 2024-09-17 01:58 | Outpatient (BNV) | payer MEDICARE, SELFPAY | PROVIDERS: Emergency Provider Emergency Medicine Emergency Medical Services; Visit Provider Internal Medicine Cardiovascular Disease | DX: R00.0 Tachycardia, unspecified (principal); I51.7 Cardiomegaly | CPT/HCPCS: 93010 ==

== ENCOUNTER 2024-11-23 10:58 | Emergency (ER) | payer MEDICARE, SELFPAY ==
--- NOTE | ~2024-11-23 | XR_ITS ---
EXAMINATION: XR CHEST 1 VIEW HISTORY: sob, wheezing COMPARISON: Comparison is made with the prior examination dated 09/17/2024. FINDINGS: A single AP portable view of the chest performed at 12 5:00 PM is submitted. The lungs are expanded and clear. There is no pleural effusion, pneumothorax, or pulmonary vascular congestion. The heart is normal in size. The bones are intact. XR/XR chest 1V IMPRESSION: No acute cardiopulmonary abnormality. Electronically signed by: Toy Altamirano MD 11/23/2024 12:18 PM EDT
[2024-11-23 10:58] VITALS: BP 151/75; PULSE 121; RESP 22; TEMP 36.8; O2SAT 95; BMI 25.4
[2024-11-23 11:06] VITALS: RESP 21; O2SAT 91
--- NOTE | 2024-11-23 11:06 | ECG_ITS ---
Test Reason : sob Blood Pressure : */* mmHG Vent. Rate : 118 BPM Atrial Rate : 118 BPM P-R Int : 132 ms QRS Dur : 104 ms QT Int : 352 ms P-R-T Axes : 82 79 55 degrees QTcB Int : 493 ms Sinus tachycardia Possible Left atrial enlargement Borderline ECG When compared with ECG of 17-Sep-2024 02:01, No significant change was found Referred By: Jamila Whyte Electronically Signed By: DARON BATES MD
--- NOTE | 2024-11-23 11:08 | ED.SOB ---
HPI - SOB/Dyspnea General Chief Complaint: Dyspnea Stated Complaint: COPD Source: patient, EMS, RN notes reviewed and old records reviewed Mode of arrival: EMS Limitations: no limitations History of Present Illness ED Provider: Bailey Whyte PA-C HPI Narrative: 69-year-old male with a history of severe COPD on PRN 2 L of oxygen, history of environmental allergies, history of hypertension, GERD, BPH, HLD, former smoker who presents to the ER from home via EMS for evaluation of shortness of breath and chest congestion. Patient states yesterday he developed some mild URI symptoms with runny nose, slight cough. This morning he woke up with chest congestion, shortness of breath and wheezing. He states he once a year gets a RN to come to the home for evaluation and today happened to be that day. Nurse found him to be short of breath with diffuse wheezing. 911 was called. Patient had tried to use his nebulizer multiple times with no relief in his symptoms. He states he usually waits till he gets chest pressure before he called 911. He denies any chest pressure at this time. He denies any associated fever or chills. No abdominal pain, nausea, vomiting, diarrhea. He is bringing up clear phlegm which is increased from his baseline. Last admission for COPD was in April of this year. He denies any history of intubation due to his COPD. He denies any known sick contacts. He has been compliant with his allergy medications. He went golfing on Wednesday and did not have any respiratory complaints. No other known exposures to trigger his COPD. MD elicited complaint: shortness of breath and cough Pertinent past history: COPD Onset (ago): hour(s) Context: recent illness Timing: progressively worsening Severity: moderate Exacerbating factors: coughing and allergies Relieving factors: oxygen, bronchodilators and upright position Known history of: COPD Associated symptoms: fever, wheezing, sputum production and chest congestion Treatment prior to arrival: oxygen and bronchodilator Related Data Home oxygen amount: other (PRN) Home Medications ?Medication ?Instructions ?Recorded ?Confirmed multivitamin 1 tab PO DAILY 01/31/21 05/16/24 omeprazole 20 mg capsule,delayed 20 mg PO DAILY@0630 01/31/21 05/16/24 release albuterol sulfate 2.5 mg/3 mL 2.5 mg inhalation TID PRN 03/11/23 05/16/24 (0.083 %) solution for nebulization Shortness Of Breath Or Wheezing amlodipine 2.5 mg tablet 2.5 mg PO DAILY 03/11/23 05/16/24 doxazosin 2 mg tablet 2 mg PO DAILY 03/11/23 05/16/24 losartan 50 mg tablet 50 mg PO DAILY 03/11/23 05/16/24 atorvastatin 10 mg tablet 10 mg PO DAILY 05/24/23 05/16/24 ipratropium bromide 0.02 % 2.5 ml inhalation Q6H PRN wheezing 05/16/24 05/16/24 solution for inhalation Previous Rx's ?Medication ?Instructions ?Recorded inhalational spacing device #10 ea 12/01/21 (Aerochamber MV spacer) dextromethorphan HBr 15 mg/5 mL 15 mg (5 mL) PO Q8H PRN cough #118 05/17/24 oral liquid (Cough Relief) mL azithromycin 250 mg tablet 250 mg PO DAILY 4 days #4 tabs 08/14/24 prednisone 10 mg tablet 10 mg PO DIRECTED #41 tabs 08/14/24 albuterol sulfate 90 mcg/actuation 2 puff inhalation QID PRN wheezing 08/24/24 aerosol inhaler #1 ea albuterol sulfate 2.5 mg/3 mL 2.5 mg (3 mL) inhalation Q4-6H PRN 09/17/24 (0.083 %) solution for nebulization shortness of breath or wheezing #75 mL amoxicillin 875 mg-potassium 1 tab PO Q12H #20 tabs 09/17/24 clavulanate 125 mg tablet doxycycline hyclate 100 mg capsule 100 mg PO BID #20 caps 09/17/24 prednisone 20 mg tablet 40 mg (2 x 20 mg) PO DAILY #8 tabs 09/17/24 umeclidinium 62.5 mcg-vilanterol 1 inh inhalation DAILY #1 ea 10/02/24 25 mcg/actuation powdr for inhalation (Anoro Ellipta) azithromycin 250 mg tablet See Rx Instructions PO .COMPLEX #6 11/23/24 (Zithromax Z-Juan) tabs prednisone 10 mg tablets in a dose See Taper PO DAILY #30 ea 11/23/24 pack Allergies Allergy/AdvReac Type Severity Reaction Status Date / Time No Known Allergies Allergy Verified 09/17/24 02:01 Review of Systems Review of Systems: Yes all other systems are reviewed and are negative [facility] Past Medical History Medical History Severe chronic obstructive pulmonary disease COPD exacerbation On home O2 Chronic obstructive lung disease Chronic lung disease GERD (gastroesophageal reflux disease) HLD (hyperlipidemia) Hypertension Hypertension Surgical History History of appendectomy Social History Social History Household Members: None Household Members Other:: daughter lives next door Housing: Apartment Do you presently have visiting nurse or other home services: No Alcohol intake: current Alcohol intake frequency: does not drink Alcohol type: beer Patient Tobacco Use Status: Former Tobacco user Tobacco use type: Cigarette Cigarette Packs Per Day: 1 Cigarettes Per Day: 20.0 Years Smoked: 50 Smoked in Last 30 Days: No e-Cigarette/Vaping Use: Never Used Second Hand Smoke Exposure: No Advance Directives: Yes Advance Directives on File: Yes Advance Directives Date on File: 02/26/22 service: No Current occupational status: employed Physical Exam Exam: Exam: Appearance: Alert. Oriented X3. [id number] respiratory distress with increased work of breathing, increased respiratory rate Head: normocephalic, atraumatic. Eyes: Pupils equal, round and reactive to light. ENT: Pharynx normal. No tonsillar swelling or exudate. Neck: Normal inspection. Neck supple. CVS: tachycardic, regular rhythm, rate in the 120s. No appreciated murmur Pulses normal. Respiratory: [id number] respiratory distress, respiratory rate mid 20s. Breath sounds With diffuse inspiratory and expiratory wheezes throughout, prolonged expiratory phase. Increased accessory muscle use Abdomen: Soft and nontender. +BS x4 Skin: Skin warm and dry. Normal skin color. Normal skin turgor. No rashes. Extremities: No lower extremity edema. No joint swelling. no calf tenderness Neuro/psych: Oriented X 3. No motor deficit. No sensory deficit. CN II-XII intact. Normal speech and cognition. Vital Signs: Vital Signs: Last Vital Signs Temp 98.3 F 11/23/24 10:58 Pulse 105 H 11/23/24 11:57 Resp 23 H 11/23/24 11:57 BP 151/75 H 11/23/24 10:58 Pulse Ox 91 L 11/23/24 11:35 O2 Del Method Nasal Cannula 11/23/24 11:35 O2 Flow Rate 2 11/23/24 11:35 BMI result Body Mass Index 25.4 Medications Administered Discontinued Medications Generic Name Dose Route Start Last Admin Trade Name Chavaq PRN Reason Stop Dose Admin Ceftriaxone Sodium 1 gm 11/23/24 11:06 11/23/24 11:41 Ceftriaxone Sodium 1 Gm Vial IVPUSH 11/23/24 11:07 1 gm ONCE ONE Administration Albuterol Sulfate 5 mg/ 0 mg 11/23/24 11:51 11/23/24 11:55 Albuterol/Ipratropium 3 ml INHALE 11/23/24 11:52 1 each ONCE ONE Administration Azithromycin 500 mg/ Sodium 250 mls @ 125 mls/hr 11/23/24 11:06 11/23/24 11:41 Chloride IV 11/23/24 13:05 125 mls/hr ONCE ONE Administration Lactated Ringer's 1,000 mls @ 999 mls/hr 11/23/24 11:15 11/23/24 13:06 Lr IV 11/23/24 12:15 Infused .Q1H1M [place] Infusion Magnesium Sulfate 2 gm in 50 mls @ 150 mls/hr 11/23/24 11:07 11/23/24 12:10 Magnesium Sulfate/H2o IV 11/23/24 11:26 Infused ONCE ONE Infusion Methylprednisolone Sodium Succinate 60 mg 11/23/24 11:07 11/23/24 11:42 Methylprednisolone Sod Succ 125 Mg/2 Ml Vial IVPUSH 11/23/24 11:08 60 mg ONCE ONE Administration Medical Decision Making Medical Decision Making MDM Narrative: 69-year-old male with history of severe COPD on p.r.n. oxygen, history of COPD exacerbations requiring hospitalization in the past, environmental allergies, HTN, HLD, BPH who presents to the ER from home via EMS for evaluation of shortness of breath and wheezing in the setting of mild URI. He received a 7.5 mg DuoNeb EN route. He arrives to the ER tachycardic to 120, increased respiratory rate with diffuse inspiratory and expiratory wheezes throughout. He is able to answer questions and speak in complete sentences. He is saturating 91-93% on room air. Patient ordered for IV Solu-Medrol, IV magnesium in ED bronchodilator protocol. Empiric antibiotics for possible community-acquired pneumonia ordered along with IV fluids. chest x-ray without any focal infiltrate or effusion. Labs are reassuring with a negative troponin, negative procalcitonin, no leukocytosis. He did test positive for COVID-19. Patient was re-evaluated after magnesium, steroids and nebulizer treatment. His respiratory status is greatly improved and he is feeling much better. His oxygen was weaned off. SpO2 92%. Ambulated in the room and tolerated well. Dr. Morales assess patient at the bedside And given patient's great improvement comfortable with discharge home. He has nebulizers at home, oxygen at home. he has a pulse oximeter and can monitor his oxygen saturations. Will discharge with prednisone taper and Zithromax for COPD exacerbation. Strict return precautions were discussed and patient expressed understanding. He participated in shared decision-making and would prefer going home. He understands return precautions Differential Diagnosis Differential Diagnoses: The differential diagnosis associated with the presentation includes Acute COPD exacerbation, viral pneumonia, viral URI, bacterial pneumonia, pneumonitis, acute CHF exacerbation, low suspicion for PE Admission/Observation Consideration of admission/observation: Escalation of care including admission/observation considered Consult Healthcare Provider Management of the patient was discussed with: Hospitalist Dr. Morales Lab Data MDM Lab Attestation statement: I reviewed the patient's lab results. STABLE ANEMIA, NO LEUKOCYTOSIS, NEGATIVE PROFILE WHICH IS REASSURING AGAINST BACTERIAL INFECTION 11/23/24 11:21 11/23/24 11:21 Labs: Lab Results 11/23/24 11/23/24 Range/Units 11:21 11:33 WBC 10.3 (4.8-10.8) X10*3/uL RBC 3.95 L (4.60-5.80) X10*6/uL Hgb 13.6 L (14.0-18.0) g/dl Hct 39.0 L (42.0-52.0) % MCV 98.7 H (80.0-98.0) fL MCH 34.4 H (27.0-33.0) pg MCHC 34.9 (31.0-36.0) g/dl RDW 11.9 (11.0-16.0) % Plt Count 207 D (160-400) X10*3/uL MPV 10.1 (9.4-12.4) fL Immature Gran % (Auto) 0.6 H (0.0-0.4) % Neut % (Auto) 70.9 (45-73) % Lymph % (Auto) 14.4 L (20-40) % [place] % (Auto) 11.3 H (2-11) % Eos % (Auto) 2.5 (0-4) % Baso % (Auto) 0.3 (0-2) % Lymph # (Auto) 1.5 (1.2-4.9) X10*3/uL [place] # (Auto) 1.2 (0.1-1.2) X10*3/uL Eos # (Auto) 0.3 (0.0-0.4) X10*3/uL Baso # (Auto) 0.0 (0.0-0.2) X10*3/uL Abs Immat Gran (auto) 0.06 H (0.00-0.03) X10*3/uL Absolute Neuts (auto) 7.3 (2.0-8.3) x10*3/uL Absolute Nucleated RBC 0.000 (0.0-0.012) X10*3/uL Nucleated RBC % (auto) 0.0 (0.0-0.2) /100WBC VBG pH 7.40 (7.32-7.43) VBG pCO2 48 mmHg VBG pO2 82 mmHg VBG HCO3 29 H (22-26) mmol/L VBG O2 Saturation 96.0 % VBG Base Excess 4.2 mmol/L Sodium 142 (135-145) mmol/L Potassium 3.6 (3.3-5.1) mmol/L Chloride 106 (96-108) mmol/L Carbon Dioxide 28 (22-29) mmol/L Anion Gap 12 (12-20) BUN 15 (9-16) mg/dL Creatinine 1.09 (0.5-1.4) mg/dL Estim Creat Clear Calc 58.1 Estimated GFR > 60 Random Glucose 129 H (60-115) mg/dL Lactic Acid 1.6 (0.5-2.0) mmol/L Calcium 8.4 D (8.4-10.2) mg/dL Magnesium 1.9 (1.6-2.6) mg/dL Total Bilirubin 0.8 (0.0-1.0) mg/dL Direct Bilirubin 0.3 (0.0-0.5) mg/dL AST 18 (5-37) U/L ALT 15 (0-40) U/L Alkaline Phosphatase 62 (39-117) U/L Troponin I High Sens < 2.7 (<3.5-35.0) ng/L B-Natriuretic Peptide 19 (<100) pg/mL Total Protein 6.6 (6.5-8.0) g/dL Albumin 4.1 (3.5-5.0) g/dL Procalcitonin 0.05 ng/mL Influenza Type A (PCR) NEGATIVE (Negative) Influenza Type B (PCR) NEGATIVE (Negative) RSV RNA Qual (PCR) NEGATIVE (Negative) SARS-CoV-2 RNA (RT-PCR) POSITIVE A (Negative) Independent Interpretation I performed an independent interpretation of an: EKG and Plain X-Ray Interpretation: EKG with sinus tachycardia, ventricular rate 118 beats per minute, normal QTC, normal FL interval, no change from EKG done in August chest x-ray with some chronic changes, no acute infiltrate or effusion Radiology Impression Discussion of test interpretation with radiology: I have reviewed the radiologist's reading. Independent Historian Clinical information obtained from an independent historian. History obtained from or confirmed by: EMS External Record Review External record reviewed: Prior outpatient labs and Prior outpatient radiology Prescription Management I considered prescription management with: Antiviral and Antibiotic Chronic Conditions Patient?s care impacted by: Other ( COPD) Critical Care Time Critical Care Time Critical Care Time: Yes Total Critical Care Time: 42 Attestation: I have personally provided critical care time exclusive of time spent on separately billable procedures. Time includes review of lab data, radiology results, discussion with consultants, and monitoring for potential decompensation. Intervention performed as documented. Discharge Plan Discharge Clinical Impression: Acute exacerbation of chronic obstructive airways disease, COVID-19 Patient Disposition: Home, Self-Care Instructions: COPD (Chronic Obstructive Pulmonary Disease) (DC), COVID-19 (Coronavirus Disease 2019) (ED) Additional Instructions: You were found to be COVID-19 POSITIVE today. Your chest x-ray did not show any evidence of pneumonia. Take The prescribed prednisone taper as directed. You can start this once you pick it up today. Complete the entire course and do not miss any doses. Start the prescribed Z-Juan tomorrow morning. Complete the entire course and do not miss any doses. Recommend using your nebulizers around the clock for the next 2 or 3 days. You can use them every 4-6 hours or as needed for shortness of Breath. Recommend wearing your oxygen at home while your lungs are recovering from COVID-19. Monitor your oxygen saturations. If they are less than 88% on your 2 L nasal cannula, recommend calling 911 or coming back to the emergency room for further evaluation Take over the counter cold/flu medications as needed for your symptoms. Take Tylenol and/or Motrin as needed for fevers and body aches. Follow up with your doctor next week IF YOU HAVE WORSENING SHORTNESS OF BREATH OR DIFFICULTY BREATHING DESPITE THESE TREATMENTS AT HOME, CALL 911 AND COME BACK TO THE ER FOR FURTHER EVALUATION Prescriptions: New prednisone 10 mg tablets,dose pack See Taper PO DAILY Qty: 30 0RF Taper: Prednisone 40 mg daily for 3 Days and 0 Hour 30 mg daily for 3 Days and 0 Hour 20 mg daily for 3 Days and 0 Hour 10 mg daily for 3 Days and 0 Hour Rx Instructions: 40 mg Daily x3 days, 30 mg daily x3 days, 20 mg daily x3 days, 10 mg daily x3 days azithromycin [Zithromax Z-Juan] 250 mg tablet See Rx Instructions PO .COMPLEX Qty: 6 0RF Rx Instructions: take 500 mg today (day 1), then 250 mg for 4 days (days 2-5) No Action albuterol sulfate 90 mcg/actuation HFA aerosol inhaler 2 puff inhalation QID PRN (Reason: wheezing) Qty: 1 6RF umeclidinium-vilanterol [Anoro Ellipta] 62.5-25 mcg/actuation blister with device 1 inh inhalation DAILY Qty: 1 6RF multivitamin Tablet 1 tab PO DAILY omeprazole 20 mg Capsule,Delayed Release(Dr/Ec) 20 mg PO DAILY@0630 ([facility] [place]) Aerochamber MV Spacer See Rx Instructions .Route Qty: 10 0RF Rx Instructions: As directed losartan 50 mg tablet 50 mg PO DAILY albuterol sulfate 2.5 mg /3 mL (0.083 %) solution for nebulization 2.5 mg inhalation TID PRN (Reason: Shortness Of Breath Or Wheezing) amlodipine 2.5 mg tablet 2.5 mg PO DAILY doxazosin 2 mg tablet 2 mg PO DAILY atorvastatin 10 mg tablet 10 mg PO DAILY ipratropium bromide 0.02 % solution 2.5 ml inhalation Q6H PRN (Reason: wheezing) Cough Relief 15 mg/5 mL liquid 15 mg PO Q8H PRN (Reason: cough) Qty: 118 1RF prednisone 10 mg tablet 10 mg PO DIRECTED Qty: 41 0RF Rx Instructions: see taper instructions 60mg on day 1-5, 40mg on day 6, 30mg on day 7, 20mg on day 8, 10mg on day 9, 5mg on day 10 azithromycin 250 mg tablet 250 mg PO DAILY 4 Days Qty: 4 0RF Rx Instructions: start on day 2 of therapy prednisone 20 mg tablet 40 mg PO DAILY Qty: 8 0RF amoxicillin-pot clavulanate 875-125 mg tablet 1 tab PO Q12H Qty: 20 0RF doxycycline hyclate 100 mg capsule 100 mg PO BID Qty: 20 0RF albuterol sulfate 2.5 mg /3 mL (0.083 %) solution for nebulization 2.5 mg inhalation Q4-6H PRN (Reason: shortness of breath or wheezing) Qty: 75 0RF Print Language: Czech
[2024-11-23 11:26] LABS: MANUAL DIFF FLAG NO
[2024-11-23 11:29] LABS: Hematocrit 39.0 % (42.0-52.0); Hemoglobin 13.6 g/dl (14.0-18.0); Imm Gran Abs Auto 0.06 X10*3/uL (0.00-0.03); Imm Gran Pct Auto 0.6 % (0.0-0.4); Lymphocytes Absolute Auto 1.5 X10*3/uL (1.2-4.9); Mean Corpuscular HGB Conc 34.9 g/dl (31.0-36.0); Mean Corpuscular Hemoglobin 34.4 pg (27.0-33.0); Mean Corpuscular Volume 98.7 fL (80.0-98.0); NRBC Abs Auto 0.000 X10*3/uL (0.0-0.012); NRBC Pct Auto 0.0 /100WBC (0.0-0.2); Platelet Count 207 X10*3/uL (160-400); Red Blood Count 3.95 X10*6/uL (4.60-5.80); White Blood Count 10.3 X10*3/uL (4.8-10.8)
[2024-11-23 11:35] VITALS: O2SAT 85; O2SAT 91
[2024-11-23 11:37] LABS: Venous Blood Gas Refer to POC result
[2024-11-23 11:37] LABS: VBG HCO3 29 mmol/L (22-26); VBG O2 % Saturation 96.0 %
[2024-11-23] MEDS: Lactated Ringers 1,000 ML 999 ML IV (11:42)
[2024-11-23] MEDS: Magnesium Sulfate/H2O 2 GM/50 ML PIGGYBACK IV (11:42)
[2024-11-23 11:49] LABS: B Type Natriuretic Peptide 19 pg/mL (<100)
[2024-11-23 11:50] LABS: Alanine Aminotransferase 15 U/L (0-40); Albumin Level 4.1 g/dL (3.5-5.0); Alkaline Phosphatase 62 U/L (39-117); Anion Gap 12 (12-20); Aspartate Amino Transferase 18 U/L (5-37); Blood Urea Nitrogen 15 mg/dL (9-16); Calcium 8.4 mg/dL (8.4-10.2); Carbon Dioxide 28 mmol/L (22-29); Chloride 106 mmol/L (96-108); Creatinine Clr Calc Pharmacy 58.1; Estimated Glomerular Filt Rate > 60; Magnesium 1.9 mg/dL (1.6-2.6); Potassium 3.6 mmol/L (3.3-5.1); Sodium 142 mmol/L (135-145); Total Protein 6.6 g/dL (6.5-8.0)
[2024-11-23 11:55] LABS: Troponin-I High Sensitivity < 2.7 ng/L (<3.5-35.0)
[2024-11-23] MEDS: Albuterol Sulfate 5 MG, Albuterol/Iprat 2.5/0.5MG 3 ML 3 ML INHALE (11:55)
[2024-11-23 11:57] VITALS: PULSE 105; RESP 23; O2SAT 90
[2024-11-23 12:05] LABS: Procalcitonin 0.05 ng/mL; Resp Syncy Virus RNA Qual PCR NEGATIVE (Negative); SARS COV2 PCR INHOUSE POSITIVE (Negative)
--- NOTE | 2024-11-23 12:27 | PC.NURSE ---
Pt to ED 13, BIBA from home for reports of increased SOB and low O2 sat. Pt has hx COPD, wears 2 L O 2 via NC intermittently. Increased work of breathing noted, pt O2 sat down to 85% on room air. Placed on 2L and saturation improved to low 90's. # 18 placed to L FA. IV medications and IVF admin per JUN. Labs collected and sent.
[2024-11-23 13:52] VITALS: BP 132/67; PULSE 104; RESP 19; TEMP 36.9; O2SAT 91
[2024-11-23 14:01] VITALS: BP 132/67; PULSE 104; RESP 19; TEMP 36.9; O2SAT 91
== END 2024-11-23 14:01 | disposition home or self-care (01) ==
PROVIDERS: Physician Assistant; Emergency Provider Emergency Medicine Emergency Medical Services
DX: U07.1 COVID-19 (principal); J44.1 Chronic obstructive pulmonary disease with (acute) exacerbation; R06.02 Shortness of breath; R05.9 Cough, unspecified; R00.0 Tachycardia, unspecified; Z99.81 Dependence on supplemental oxygen; Z79.899 Other long term (current) drug therapy
CPT/HCPCS: 71045; 80048; 80076; 82803; 83605; 83735; 83880; 84145; 84484; 85025; 87040; 87637; 93005; 94640; 96365; 96366; 96375; 99285; J0456; J0696; J2919; J3475; J7120

== ENCOUNTER → 2024-11-23 11:06 | Outpatient (BNV) | payer MEDICARE, SELFPAY | PROVIDERS: Emergency Provider Emergency Medicine Emergency Medical Services; Visit Provider Internal Medicine Cardiovascular Disease | DX: R00.0 Tachycardia, unspecified (principal) | CPT/HCPCS: 93010 ==

== ENCOUNTER → 2024-11-23 11:06 | Outpatient (BNV) | payer MEDICARE, SELFPAY | PROVIDERS: Emergency Provider Emergency Medicine Emergency Medical Services; Visit Provider Radiology Diagnostic Radiology | DX: R06.02 Shortness of breath (principal) | CPT/HCPCS: 71045 ==

== ENCOUNTER 2024-12-13 21:53 | Inpatient (IN) | payer MEDICARE, SELFPAY ==
[2024-12-13] VITALS (12 sets, daily range): BP systolic 128–197; BP diastolic 70–102; PULSE 68–116; RESP 15–32; TEMP 36.6; O2SAT 50–100; BMI 26.6
--- NOTE | ~2024-12-13 | XR_ITS ---
CLINICAL HISTORY: sob 1 view chest x-ray Comparison: CR/SR - XR CHEST 1 VIEW - 11/23/24 12:05 EDT Findings: Trace left pleural effusion. No consolidation or pneumothorax. Normal size heart. Aortic atherosclerosis. No acute fracture. IMPRESSION: Trace left pleural effusion. This document has been electronically signed by: Simeon Stevens MD on 12/13/2024 22:45:17
--- NOTE | 2024-12-13 21:55 | ECG_ITS ---
Test Reason : SOB Blood Pressure : */* mmHG Vent. Rate : 112 BPM Atrial Rate : 112 BPM P-R Int : 146 ms QRS Dur : 100 ms QT Int : 340 ms P-R-T Axes : 83 86 57 degrees QTcB Int : 464 ms Sinus tachycardia with Premature atrial complexes Otherwise normal ECG When compared with ECG of 23-Nov-2024 11:38, Premature atrial complexes are now Present Referred By: Stephania Saez Electronically Signed By: DARON BATES MD
--- NOTE | 2024-12-13 22:04 | ED.SOB ---
HPI - SOB/Dyspnea General Chief Complaint: Dyspnea Stated Complaint: diff. breathing Time Seen by Provider: 12/13/24 21:55 Source: patient Mode of arrival: wheelchair Limitations: other History of Present Illness ED Provider: Dr. Stephania Saez HPI Narrative: Patient comes to the emergency room complaining of shortness of breath. Patient drove himself. On arrival to the ED, patient was parked, made it to the entrance, nearly lost consciousness still in his car. Security had to pull him out. Patient was barely awake, struggling to breathe, cyanotic. Patient was brought immediately to the main emergency room. Patient was not able to talk. While we were prepping for intubation, we put him on 15 L non-rebreather. Patient's initial oxygen saturation was 51% on room air. As his oxygen saturation continued to rise, patient started to become more awake and responsive, still struggling to breathe, when we asked the patient if he has asthma or COPD or CHF, patient's said asthma, I do not know . Related Data Home Medications ?Medication ?Instructions ?Recorded ?Confirmed multivitamin 1 tab PO DAILY 01/31/21 05/16/24 omeprazole 20 mg capsule,delayed 20 mg PO DAILY@0630 01/31/21 05/16/24 release albuterol sulfate 2.5 mg/3 mL 2.5 mg inhalation TID PRN 03/11/23 05/16/24 (0.083 %) solution for nebulization Shortness Of Breath Or Wheezing amlodipine 2.5 mg tablet 2.5 mg PO DAILY 03/11/23 05/16/24 doxazosin 2 mg tablet 2 mg PO DAILY 03/11/23 05/16/24 losartan 50 mg tablet 50 mg PO DAILY 03/11/23 05/16/24 atorvastatin 10 mg tablet 10 mg PO DAILY 05/24/23 05/16/24 ipratropium bromide 0.02 % 2.5 ml inhalation Q6H PRN wheezing 05/16/24 05/16/24 solution for inhalation Previous Rx's ?Medication ?Instructions ?Recorded inhalational spacing device #10 ea 12/01/21 (Aerochamber MV spacer) dextromethorphan HBr 15 mg/5 mL 15 mg (5 mL) PO Q8H PRN cough #118 05/17/24 oral liquid (Cough Relief) mL azithromycin 250 mg tablet 250 mg PO DAILY 4 days #4 tabs 08/14/24 prednisone 10 mg tablet 10 mg PO DIRECTED #41 tabs 08/14/24 albuterol sulfate 90 mcg/actuation 2 puff inhalation QID PRN wheezing 08/24/24 aerosol inhaler #1 ea albuterol sulfate 2.5 mg/3 mL 2.5 mg (3 mL) inhalation Q4-6H PRN 09/17/24 (0.083 %) solution for nebulization shortness of breath or wheezing #75 mL amoxicillin 875 mg-potassium 1 tab PO Q12H #20 tabs 09/17/24 clavulanate 125 mg tablet doxycycline hyclate 100 mg capsule 100 mg PO BID #20 caps 09/17/24 prednisone 20 mg tablet 40 mg (2 x 20 mg) PO DAILY #8 tabs 09/17/24 umeclidinium 62.5 mcg-vilanterol 1 inh inhalation DAILY #1 ea 10/02/24 25 mcg/actuation powdr for inhalation (Anoro Ellipta) azithromycin 250 mg tablet See Rx Instructions PO .COMPLEX #6 11/23/24 (Zithromax Z-Juan) tabs prednisone 10 mg tablets in a dose See Taper PO DAILY #30 ea 11/23/24 pack Allergies Allergy/AdvReac Type Severity Reaction Status Date / Time No Known Allergies Allergy Verified 12/13/24 21:57 Review of Systems Review of Systems: Yes Unobtainable due to mental condition (Severe shortness of breath) PMFSH Past Medical History Medical History Severe chronic obstructive pulmonary disease COPD exacerbation On home O2 Chronic obstructive lung disease Chronic lung disease GERD (gastroesophageal reflux disease) HLD (hyperlipidemia) Hypertension Hypertension Surgical History History of appendectomy Social History Social History Household Members: None Household Members Other:: daughter lives next door Housing: Apartment Do you presently have visiting nurse or other home services: No Alcohol intake: current Alcohol intake frequency: does not drink Alcohol type: beer Patient Tobacco Use Status: Former Tobacco user Tobacco use type: Cigarette Cigarette Packs Per Day: 1 Cigarettes Per Day: 20.0 Years Smoked: 50 Smoked in Last 30 Days: No e-Cigarette/Vaping Use: Never Used Second Hand Smoke Exposure: No Use of substances other than those prescribed or required for medical reasons: No Advance Directives: Yes Advance Directives on File: Yes Advance Directives Date on File: 02/26/22 service: No Current occupational status: employed Physical Exam Exam: Exam: Appearance: Alert. On arrival, barely conscious Eyes: Pupils equal, round and reactive to light. ENT: Pharynx normal. Neck: Normal inspection. Neck supple. No lymph nodes noted. No crepitus CVS: Normal heart rate and rhythm. Pulses normal. Normal S1 and S2 Respiratory: In severe respiratory distress, very decreased air movement, no audible wheezing Abdomen: Soft and nontender. No rigidity. No distention. Skin: Skin cyanotic, climbing Extremities: No lower extremity edema. No Lacerations. No Rash Neuro: Unable to participate in cranial nerve assessment Psych: Barely conscious Vital Signs: Vital Signs: Last Vital Signs Temp 97.9 F 12/14/24 02:09 Pulse 90 12/14/24 02:09 Resp 19 12/14/24 02:09 BP 120/68 12/14/24 02:09 Pulse Ox 94 12/14/24 02:09 O2 Del Method Nasal Cannula 12/14/24 02:09 O2 Flow Rate 2 12/14/24 02:09 BMI result Body Mass Index 26.6 Course Course Course Narrative: On arrival, as we were prepping for intubation, patient was put on 15 L non-rebreather. Initial oxygen saturation was 51% on room air. On a non-rebreather, patient started quickly improving oxygen saturation. However, very tight, almost no audible breath sounds, no wheezing. Immediately, patient receive IM epinephrine 0.3 mg, Solu-Medrol, put on BiPAP and given nebulization treatments. Within a few minutes, patient states that he started to feel better. Became more awake, alert, able to answer questions more appropriately. Patient states that he has history of emphysema/COPD and is supposed to be on 2 L of oxygen. Patient drove himself without wearing oxygen. With his information, patient now also receiving IV ceftriaxone, azithromycin, IV fluids. Patient's blood pressure is in the high 190s. Given that the patient has history of COPD and is requiring rescue BiPAP, we will start the sepsis protocol at this time, 22:15 Medications Administered Discontinued Medications Generic Name Dose Route Start Last Admin Trade Name Bradford PRN Reason Stop Dose Admin Ceftriaxone Sodium 1 gm 12/13/24 21:57 12/13/24 22:16 Ceftriaxone Sodium 1 Gm Vial IVPUSH 12/13/24 21:58 1 gm ONCE ONE Administration Albuterol Sulfate 7.5 mg/ 0 mg 12/13/24 22:04 12/13/24 22:20 Albuterol/Ipratropium 3 ml INHALE 12/13/24 22:05 10 each ONCE ONE Administration Albuterol Sulfate 7.5 mg/ 0 mg 12/13/24 22:33 12/13/24 22:36 Albuterol/Ipratropium 3 ml INHALE 12/13/24 22:34 10 each ONCE ONE Administration Epinephrine 0.3 mg 12/13/24 21:56 12/13/24 21:56 Epinephrine 1 Mg/Ml Vial IM 12/13/24 21:57 0.3 mg STAT STA Administration Azithromycin 500 mg/ Sodium 250 mls @ 125 mls/hr 12/13/24 21:57 12/14/24 00:18 Chloride IV 12/13/24 23:56 Infused ONCE ONE Infusion Sodium Chloride 2,381.37 mls @ 2,381.37 mls/hr 12/13/24 21:57 12/13/24 23:08 Ns 30 ml/kg infuse over 1 hr (2381.37 ml) 12/13/24 22:56 Infused IV Infusion .Q1H STA Methylprednisolone Sodium Succinate 125 mg 12/13/24 21:56 12/13/24 21:53 Methylprednisolone Sod Succ 125 Mg/2 Ml Vial IVPUSH 12/13/24 21:57 125 mg ONCE ONE Administration Medical Decision Making Medical Decision Making MDM Narrative: My interpretation of labs: Patient's white blood cell count 15.8, no significant acute abnormality in patient's chemistry. Initial lactic acid 2.4, improved to 1.7. Patient is in his show blood gases show pH of 7.1, pCO2 of 80, bicarb 27. After being 3 hours on BiPAP, patient's pH improved to 7.36, pCO2 45, bicarb 25. Patient was put on 2 L nasal cannula. Patient states that he feels much better. Still a bit wheezy but he is moving it much better Chest x-ray shows trace pleural effusions FOCUS exam done at 00:30 Patient has been off BiPAP for 1 hour 40 minutes, patient is doing well, no oxygen desaturations. No shortness of breath. I discussed the patient with Dr. Morales, patient being admitted Differential Diagnosis Differential Diagnoses: The differential diagnosis associated with the presentation includes (Pneumonia, COPD, RSV, influenza) Admission/Observation Consideration of admission/observation: Escalation of care including admission/observation considered Consult Healthcare Provider Management of the patient was discussed with: Hospitalist Lab Data [facility] Lab Attestation statement: I reviewed the patient's lab results. 12/13/24 22:00 12/13/24 22:00 Labs: Lab Results 12/13/24 12/13/24 12/13/24 Range/Units 22:00 22:07 22:10 WBC 15.8 H (4.8-10.8) X10*3/uL RBC 4.10 L (4.60-5.80) X10*6/uL Hgb 14.1 (14.0-18.0) g/dl Hct 40.7 L (42.0-52.0) % MCV 99.3 H (80.0-98.0) fL MCH 34.4 H (27.0-33.0) pg MCHC 34.6 (31.0-36.0) g/dl RDW 11.8 (11.0-16.0) % Plt Count 338 D (160-400) X10*3/uL MPV 10.6 (9.4-12.4) fL Immature Gran % (Auto) 0.4 (0.0-0.4) % Neut % (Auto) 49.5 (45-73) % Lymph % (Auto) 35.4 (20-40) % [place] % (Auto) 9.2 (2-11) % Eos % (Auto) 4.9 H (0-4) % Baso % (Auto) 0.6 (0-2) % Lymph # (Auto) 5.6 H (1.2-4.9) X10*3/uL [place] # (Auto) 1.5 H (0.1-1.2) X10*3/uL Eos # (Auto) 0.8 H (0.0-0.4) X10*3/uL Baso # (Auto) 0.1 (0.0-0.2) X10*3/uL Abs Immat Gran (auto) 0.07 H (0.00-0.03) X10*3/uL Absolute Neuts (auto) 7.8 (2.0-8.3) x10*3/uL Absolute Nucleated RBC 0.000 (0.0-0.012) X10*3/uL Nucleated RBC % (auto) 0.0 (0.0-0.2) /100WBC Smear Tech's Comments VERIFIED PT 11.1 (10.9-12.4) SEC INR 1.0 (0.9-1.1) VBG pH 7.14 L* (7.32-7.43) VBG pCO2 80 mmHg VBG pO2 73 mmHg VBG HCO3 27 H (22-26) mmol/L VBG O2 Saturation 85.0 % VBG Base Excess -3.6 mmol/L Sodium 142 (135-145) mmol/L Potassium 4.0 (3.3-5.1) mmol/L Chloride 105 (96-108) mmol/L Carbon Dioxide 26 (22-29) mmol/L Anion Gap 15 (12-20) BUN 13 (9-16) mg/dL Creatinine 1.04 (0.5-1.4) mg/dL Estim Creat Clear Calc 63.0 Estimated GFR > 60 Random Glucose 160 H (60-115) mg/dL Lactic Acid 2.4 H* (0.5-2.0) mmol/L Lactic Acid F/U @ 2Hr (0.5-2.0) mmol/L Calcium 9.0 D (8.4-10.2) mg/dL Magnesium 2.0 (1.6-2.6) mg/dL Total Bilirubin 0.6 (0.0-1.0) mg/dL Direct Bilirubin 0.2 (0.0-0.5) mg/dL AST 26 (5-37) U/L ALT 22 (0-40) U/L Alkaline Phosphatase 68 (39-117) U/L Troponin I High Sens < 2.7 (<3.5-35.0) ng/L B-Natriuretic Peptide 68 (<100) pg/mL Total Protein 7.4 (6.5-8.0) g/dL Albumin 4.6 (3.5-5.0) g/dL Influenza Type A (PCR) NEGATIVE (Negative) Influenza Type B (PCR) NEGATIVE (Negative) RSV RNA Qual (PCR) NEGATIVE (Negative) SARS-CoV-2 RNA (RT-PCR) NEGATIVE (Negative) 12/14/24 12/14/24 Range/Units 00:36 01:32 WBC (4.8-10.8) X10*3/uL RBC (4.60-5.80) X10*6/uL Hgb (14.0-18.0) g/dl Hct (42.0-52.0) % MCV (80.0-98.0) fL MCH (27.0-33.0) pg MCHC (31.0-36.0) g/dl RDW (11.0-16.0) % Plt Count (160-400) X10*3/uL MPV (9.4-12.4) fL Immature Gran % (Auto) (0.0-0.4) % Neut % (Auto) (45-73) % Lymph % (Auto) (20-40) % [place] % (Auto) (2-11) % Eos % (Auto) (0-4) % Baso % (Auto) (0-2) % Lymph # (Auto) (1.2-4.9) X10*3/uL [place] # (Auto) (0.1-1.2) X10*3/uL Eos # (Auto) (0.0-0.4) X10*3/uL Baso # (Auto) (0.0-0.2) X10*3/uL Abs Immat Gran (auto) (0.00-0.03) X10*3/uL Absolute Neuts (auto) (2.0-8.3) x10*3/uL Absolute Nucleated RBC (0.0-0.012) X10*3/uL Nucleated RBC % (auto) (0.0-0.2) /100WBC Smear Tech's Comments PT (10.9-12.4) SEC INR (0.9-1.1) VBG pH 7.36 (7.32-7.43) VBG pCO2 45 mmHg VBG pO2 77 mmHg VBG HCO3 25 (22-26) mmol/L VBG O2 Saturation 94.0 % VBG Base Excess 0.0 mmol/L Sodium (135-145) mmol/L Potassium (3.3-5.1) mmol/L Chloride (96-108) mmol/L Carbon Dioxide (22-29) mmol/L Anion Gap (12-20) BUN (9-16) mg/dL Creatinine (0.5-1.4) mg/dL Estim Creat Clear Calc Estimated GFR Random Glucose (60-115) mg/dL Lactic Acid (0.5-2.0) mmol/L Lactic Acid F/U @ 2Hr 1.7 (0.5-2.0) mmol/L Calcium (8.4-10.2) mg/dL Magnesium (1.6-2.6) mg/dL Total Bilirubin (0.0-1.0) mg/dL Direct Bilirubin (0.0-0.5) mg/dL AST (5-37) U/L ALT (0-40) U/L Alkaline Phosphatase (39-117) U/L Troponin I High Sens (<3.5-35.0) ng/L B-Natriuretic Peptide (<100) pg/mL Total Protein (6.5-8.0) g/dL Albumin (3.5-5.0) g/dL Influenza Type A (PCR) (Negative) Influenza Type B (PCR) (Negative) RSV RNA Qual (PCR) (Negative) SARS-CoV-2 RNA (RT-PCR) (Negative) Independent Interpretation I performed an independent interpretation of an: Plain X-Ray Radiology Impression Discussion of test interpretation with radiology: I have reviewed the radiologist's reading. Radiologist Impression: Trace left pleural effusion. No consolidation or pneumothorax. Normal size heart. Aortic atherosclerosis. No acute fracture. Critical Care Time Critical Care Time Critical Care Time: Yes Total Critical Care Time: 75 Attestation: I have personally provided critical care time. Time includes review of lab data, radiology results, discussion with consultants, and monitoring for potential decompensation. Intervention performed as documented. Discharge Plan Discharge Clinical Impression: Acute on chronic hypoxic respiratory failure Patient Disposition: Admitted As Inpatient Print Language: Korean
[2024-12-13] MEDS: 0.9 % Sodium Chloride 2,381.37 ML 2381.37 ML IV (22:06)
[2024-12-13 22:07] LABS: Hematocrit 40.7 % (42.0-52.0); Hemoglobin 14.1 g/dl (14.0-18.0); Imm Gran Abs Auto 0.07 X10*3/uL (0.00-0.03); Imm Gran Pct Auto 0.4 % (0.0-0.4); Lymphocytes Absolute Auto 5.6 X10*3/uL (1.2-4.9); MANUAL DIFF FLAG SCAN; Mean Corpuscular HGB Conc 34.6 g/dl (31.0-36.0); Mean Corpuscular Hemoglobin 34.4 pg (27.0-33.0); Mean Corpuscular Volume 99.3 fL (80.0-98.0); NRBC Abs Auto 0.000 X10*3/uL (0.0-0.012); NRBC Pct Auto 0.0 /100WBC (0.0-0.2); Platelet Count 338 X10*3/uL (160-400); Red Blood Count 4.10 X10*6/uL (4.60-5.80); SCAN SMEAR FLAG 1; White Blood Count 15.8 X10*3/uL (4.8-10.8)
[2024-12-13 22:13] LABS: Venous Blood Gas Refer to POC result
[2024-12-13 22:15] LABS: VBG HCO3 27 mmol/L (22-26); VBG O2 % Saturation 85.0 %
[2024-12-13] MEDS: Albuterol Sulfate 7.5 MG, Albuterol/Iprat 2.5/0.5MG 3 ML 3 ML INHALE ×2 (22:20→22:36)
[2024-12-13 22:27] LABS: Alanine Aminotransferase 22 U/L (0-40); Albumin Level 4.6 g/dL (3.5-5.0); Alkaline Phosphatase 68 U/L (39-117); Anion Gap 15 (12-20); Aspartate Amino Transferase 26 U/L (5-37); Blood Urea Nitrogen 13 mg/dL (9-16); Calcium 9.0 mg/dL (8.4-10.2); Carbon Dioxide 26 mmol/L (22-29); Chloride 105 mmol/L (96-108); Creatinine Clr Calc Pharmacy 63.0; Estimated Glomerular Filt Rate > 60; Magnesium 2.0 mg/dL (1.6-2.6); Potassium 4.0 mmol/L (3.3-5.1); Sodium 142 mmol/L (135-145); Total Protein 7.4 g/dL (6.5-8.0)
[2024-12-13 22:29] LABS: INTERNATIONAL NORM RATIO 1.0 (0.9-1.1); Prothrombin Time 11.1 SEC (10.9-12.4)
[2024-12-13 22:31] LABS: B Type Natriuretic Peptide 68 pg/mL (<100)
[2024-12-13 22:35] LABS: Troponin-I High Sensitivity < 2.7 ng/L (<3.5-35.0)
[2024-12-13 22:44] LABS: Resp Syncy Virus RNA Qual PCR NEGATIVE (Negative); SARS COV2 PCR INHOUSE NEGATIVE (Negative)
[2024-12-14] VITALS (13 sets, daily range): BP systolic 117–150; BP diastolic 57–70; PULSE 70–96; RESP 14–25; TEMP 36.6–37; O2SAT 93–98
[2024-12-14 00:18] LABS: Reflex Lactate? Lactic Acid Added
[2024-12-14 01:00] LABS: ~Lactic Acid-LAB USE ONLY 1.7 mmol/L (0.5-2.0)
[2024-12-14 01:50] LABS: Venous Blood Gas Refer to POC result
[2024-12-14 01:52] LABS: VBG HCO3 25 mmol/L (22-26); VBG O2 % Saturation 94.0 %
--- NOTE | 2024-12-14 02:10 | PC.NURSE ---
patient bipap taken off at this time, placed on 2L NC per Dr. Saez
--- NOTE | 2024-12-14 04:24 | PM.IMHP ---
History of Present Illness Date of Service: 12/14/24 Chief Complaint: dyspnea This is a 68-year-old male with pertinent history of COPD on prn home oxygen but states doesnt use at baseline, former tobacco use disorder, mixed hyperlipidemia, hypertension, gastroesophageal reflux disease, BPH who presents to the emergency department for evaluation of dyspnea and wheezing. Patient states it started 3 days prior to presentation. His symptoms have been progressive. Patient states he has been having dyspnea which is worse with exertion. No orthopnea or PND. Minimal dry cough. Also had associated wheezing which was not relieved with home oxygen or inhalers. No fevers or chills. He denies chest discomfort, palpitations, abdominal pain, changes in urinary or bowel habits. Patient states he quit smoking. Has never been intubated in the past. In the emergency department, patient with significant dyspnea and hypoxia, initially required rescue BiPAP for respiratory acidosis. Given IV steroids, breathing treatments in the ER. Chest x-ray without any acute abnormality Review of Systems Constitutional: Constitutional: Reports fatigue and Reports malaise Cardiovascular: Cardiovascular: Reports dyspnea on exertion Respiratory: Respiratory: Reports dyspnea on exertion and Reports wheezing Gastrointestinal: Gastrointestinal: Reports no additional gastrointestinal complaints Genitourinary: Genitourinary: Reports no additional male genitourinary complaints Endocrine: Endocrine: Reports fatigue Allergic/Immunologic: Allergic/Immunologic: Reports wheezing [facility] Medical History Severe chronic obstructive pulmonary disease COPD exacerbation On home O2 Chronic obstructive lung disease Chronic lung disease GERD (gastroesophageal reflux disease) HLD (hyperlipidemia) Hypertension Hypertension Surgical History History of appendectomy Social History Household Members: None Household Members Other:: daughter lives next door Housing: Apartment Do you presently have visiting nurse or other home services: No Alcohol intake: current Alcohol intake frequency: does not drink Alcohol type: beer Patient Tobacco Use Status: Former Tobacco user Tobacco use type: Cigarette Cigarette Packs Per Day: 1 Cigarettes Per Day: 20.0 Years Smoked: 50 Smoked in Last 30 Days: No e-Cigarette/Vaping Use: Never Used Second Hand Smoke Exposure: No Use of substances other than those prescribed or required for medical reasons: No Advance Directives: Yes Advance Directives on File: Yes Advance Directives Date on File: 02/26/22 Nutrition Risks: No Nutritional Risk service: No Current occupational status: employed Meds Allergies Allergy/AdvReac Type Severity Reaction Status Date / Time No Known Allergies Allergy Verified 12/13/24 21:57 Home Medications ?Medication ?Instructions ?Recorded ?Confirmed ?Last Taken ?Type multivitamin 1 tab PO DAILY 01/31/21 05/16/24 05/15/24 History omeprazole 20 mg capsule,delayed 20 mg PO DAILY@0630 01/31/21 05/16/24 05/15/24 History release albuterol sulfate 2.5 mg/3 mL 2.5 mg inhalation TID PRN 03/11/23 05/16/24 Unknown History (0.083 %) solution for nebulization Shortness Of Breath Or Wheezing amlodipine 2.5 mg tablet 2.5 mg PO DAILY 03/11/23 05/16/24 05/15/24 History doxazosin 2 mg tablet 2 mg PO DAILY 03/11/23 05/16/24 05/15/24 History losartan 50 mg tablet 50 mg PO DAILY 03/11/23 05/16/24 05/15/24 History atorvastatin 10 mg tablet 10 mg PO DAILY 05/24/23 05/16/24 05/15/24 History ipratropium bromide 0.02 % 2.5 ml inhalation Q6H PRN wheezing 05/16/24 05/16/24 Unknown History solution for inhalation Physical Exam Vital Signs and Narrative: Vital Signs: Last Vital Signs Temp 97.9 F 12/14/24 02:09 Pulse 90 12/14/24 02:09 Resp 19 12/14/24 02:09 BP 120/68 12/14/24 02:09 Pulse Ox 94 12/14/24 02:09 O2 Del Method Nasal Cannula 12/14/24 02:09 O2 Flow Rate 2 12/14/24 02:09 BMI result Body Mass Index 26.6 Const: Other: Middle-aged male lying in bed in mild distress on supplemental oxygen Neck supple, no JVD Regular rate with regular rhythm, S1-S2 heard Bilateral wheezing without crackles, tachypnea present Abdomen soft nontender, no guarding, no rigidity Patient is awake, alert and oriented to self, place, time and person ; no focal motor deficit Psych: Normal mood No pedal edema Results Labs 12/13/24 22:00 12/13/24 22:00 Labs: Laboratory Results - last 24 hr 12/13/24 12/13/24 12/13/24 22:00 22:07 22:10 MCV 99.3 H MCH 34.4 H MCHC 34.6 RDW 11.8 Plt Count 338 D MPV 10.6 Immature Gran % (Auto) 0.4 Neut % (Auto) 49.5 Lymph % (Auto) 35.4 [place] % (Auto) 9.2 Eos % (Auto) 4.9 H Baso % (Auto) 0.6 Lymph # (Auto) 5.6 H [place] # (Auto) 1.5 H Eos # (Auto) 0.8 H Baso # (Auto) 0.1 Abs Immat Gran (auto) 0.07 H Absolute Neuts (auto) 7.8 Absolute Nucleated RBC 0.000 Nucleated RBC % (auto) 0.0 Smear Tech's Comments VERIFIED PT 11.1 INR 1.0 VBG pH 7.14 L* VBG pCO2 80 VBG pO2 73 VBG HCO3 27 H VBG O2 Saturation 85.0 VBG Base Excess -3.6 Anion Gap 15 Estim Creat Clear Calc 63.0 Estimated GFR > 60 Random Glucose 160 H Lactic Acid 2.4 H* Lactic Acid F/U @ 2Hr Calcium 9.0 D Magnesium 2.0 Total Bilirubin 0.6 Direct Bilirubin 0.2 AST 26 ALT 22 Alkaline Phosphatase 68 B-Natriuretic Peptide 68 Total Protein 7.4 Albumin 4.6 Influenza Type A (PCR) NEGATIVE Influenza Type B (PCR) NEGATIVE RSV RNA Qual (PCR) NEGATIVE SARS-CoV-2 RNA (RT-PCR) NEGATIVE 12/14/24 12/14/24 00:36 01:32 MCV MCH MCHC RDW Plt Count MPV Immature Gran % (Auto) Neut % (Auto) Lymph % (Auto) [place] % (Auto) Eos % (Auto) Baso % (Auto) Lymph # (Auto) [place] # (Auto) Eos # (Auto) Baso # (Auto) Abs Immat Gran (auto) Absolute Neuts (auto) Absolute Nucleated RBC Nucleated RBC % (auto) Smear Tech's Comments PT INR VBG pH 7.36 VBG pCO2 45 VBG pO2 77 VBG HCO3 25 VBG O2 Saturation 94.0 VBG Base Excess 0.0 Anion Gap Estim Creat Clear Calc Estimated GFR Random Glucose Lactic Acid Lactic Acid F/U @ 2Hr 1.7 Calcium Magnesium Total Bilirubin Direct Bilirubin AST ALT Alkaline Phosphatase B-Natriuretic Peptide Total Protein Albumin Influenza Type A (PCR) Influenza Type B (PCR) RSV RNA Qual (PCR) SARS-CoV-2 RNA (RT-PCR) Assessment and Plan (1) Acute on chronic hypoxic respiratory failure: Status: Acute Plan This is a 68-year-old male with pertinent history of COPD on prn home oxygen but states doesnt use at baseline, former tobacco use disorder, mixed hyperlipidemia, hypertension, gastroesophageal reflux disease, BPH who presents to the emergency department for evaluation of dyspnea and wheezing. #. Acute hypoxemic hypercapnic respiratory failure secondary to acute exacerbation of COPD: Will admit patient and initiate systemic steroids. Scheduled and p.r.n. DuoNebs. Continue home inhaler. Monitor oxygen saturation and wean as tolerated. Maintain oxygen saturation greater than 88%. #. Leukocytosis, reactive #. Hypertension: Continue home antihypertensives #. Gastroesophageal reflux disease: On PPI #. Mixed hyperlipidemia: On statin #. BPH: On doxazosin Med rec pending DVT prophylaxis: Lovenox 40 mg daily Full code. Discussed with patient at bedside Cardiac diet Admit as inpatient and will require two night minimum hospital stay for IV steroids, supplemental oxygen (as above), which is not possible in a lesser acute setting. Quality Stroke Does the patient have a stroke diagnosis?: No VTE Prior VTE?: No VTE Risk Level:: Medical - moderate - high VTE Device Contraindication: Treatment Not Indicated VTE Drug Contraindication: N/A - Med Ordered
[2024-12-14 06:16] LABS: Hematocrit 35.1 % (42.0-52.0); Hemoglobin 12.4 g/dl (14.0-18.0); Imm Gran Abs Auto 0.03 X10*3/uL (0.00-0.03); Imm Gran Pct Auto 0.3 % (0.0-0.4); Lymphocytes Absolute Auto 0.5 X10*3/uL (1.2-4.9); MANUAL DIFF FLAG SCAN; Mean Corpuscular HGB Conc 35.3 g/dl (31.0-36.0); Mean Corpuscular Hemoglobin 34.2 pg (27.0-33.0); Mean Corpuscular Volume 96.7 fL (80.0-98.0); NRBC Abs Auto 0.000 X10*3/uL (0.0-0.012); NRBC Pct Auto 0.0 /100WBC (0.0-0.2); Platelet Count 239 X10*3/uL (160-400); Red Blood Count 3.63 X10*6/uL (4.60-5.80); SCAN SMEAR FLAG 1; White Blood Count 8.6 X10*3/uL (4.8-10.8)
[2024-12-14 06:22] LABS: Anion Gap 15 (12-20); Blood Urea Nitrogen 13 mg/dL (9-16); Calcium 8.1 mg/dL (8.4-10.2); Carbon Dioxide 21 mmol/L (22-29); Chloride 108 mmol/L (96-108); Creatinine Clr Calc Pharmacy 73.6; Estimated Glomerular Filt Rate > 60; Potassium 3.8 mmol/L (3.3-5.1); Sodium 140 mmol/L (135-145)
[2024-12-14] MEDS: Albuterol/Iprat 2.5/0.5MG 3 ML AMPUL.NEB INHALE ×4 (07:46→20:14)
[2024-12-14] MEDS: 0.9 % Sodium Chloride Flush 3 ML SYRINGE IVFLUSH ×2 (08:41→16:15)
--- NOTE | 2024-12-14 08:53 | PHA.MEDREC ---
Pharmacy Consult ? Medication Reconciliation Pharmacy has completed the medication reconciliation. Spoke to patient to confirm med list. Per patient, he takes losartan 50 mg once a day. He takes all medications in the morning except he takes 1 puff of the Anoro at bedtime. Last dose of medications was yesterday 12/13/24.
--- NOTE | 2024-12-14 09:35 | MHC.CM.PN ---
IMM 12/14/24, Pt. lives alone, S.O. with his frequently. PCP was Dr. Lorenza CM to call office to determine who he is assigned to now. Pt. does not have home health services, for DME, he has nebulizer, Home O2 from [facility], [place], which he uses PRN. S.O. to transport him home at [place], DCP: home, self care. CM to follow for DC needs.
--- NOTE | 2024-12-14 19:25 | PM.EVENT ---
Event Note Date of Service: 12/14/24 Event Note: Patient seen and examined Shortness of breaths improving but still short of breath with mild exertion Physical exam: Similar to h&P,still has b/l wheezing Assessment and plan per h&P: Acute hypoxemic hypercapnic respiratory failure secondary to acute exacerbation of COPD-continue nebs, steroids, taper oxygen Time Spent With Patient Time: Total time managing care of this patient today ____ minutes.
--- NOTE | 2024-12-14 21:56 | PC.NURSE ---
medicated per mar, emptied urinal for 900ml
[2024-12-15] VITALS: BP 148/65; PULSE 76; RESP 20; TEMP 37.1; O2SAT 92
[2024-12-15 00:37] VITALS: BP 152/70; PULSE 100; RESP 19; TEMP 36.4; O2SAT 94
[2024-12-15 00:40] VITALS: BMI 25.1
[2024-12-15] MEDS: 0.9 % Sodium Chloride Flush 3 ML SYRINGE IVFLUSH ×2 (01:08→07:39)
[2024-12-15 03:06] VITALS: BP 132/63; PULSE 69; RESP 17; TEMP 36.3; O2SAT 95
[2024-12-15 07:33] VITALS: BP 151/78; PULSE 55; RESP 16; TEMP 36.7; O2SAT 96
[2024-12-15] MEDS: Albuterol/Iprat 2.5/0.5MG 3 ML AMPUL.NEB INHALE ×2 (08:04→11:09)
[2024-12-15 08:06] VITALS: PULSE 83; RESP 16; O2SAT 93
[2024-12-15 08:47] LABS: Chlamydia pneumoniae PCR Not Detected (Not Detect.); Coronavirus 229E PCR Not Detected (Not Detect.); Coronavirus HKU1 PCR Not Detected (Not Detect.); Coronavirus NL63 PCR Not Detected (Not Detect.); Coronavirus OC43 PCR Not Detected (Not Detect.); RSV PCR Not Detected (Not Detect.); Rhino/Enterovirus PCR Not Detected (Not Detect.)
--- NOTE | 2024-12-15 09:26 | PC.NURSE ---
88-89 on RA, 92 with deep breathing. MD notified.
[2024-12-15 09:45] LABS: Influenza A H1 PCR Not Detected (Not Detect.); Influenza A H1-2009 PCR Not Detected (Not Detect.); Influenza A H3 PCR Not Detected (Not Detect.); SARS-CoV-2 PCR Not Detected (Not Detect.)
[2024-12-15 11:09] VITALS: PULSE 80; RESP 16; O2SAT 93
--- NOTE | 2024-12-15 11:49 | PM.DS ---
DS: Providers Provider Date of Service: 12/15/24 Date of admission: 12/14/24 04:16 Date of discharge: 12/15/24 Primary care physician: Unknown Physician Attending physician on discharge: Dudley Damian Discharging clinician: Dudley Damian DS: Diagnosis Discharge Diagnosis (1) Acute on chronic hypoxic respiratory failure: Status: Acute DS: Summary Hospital Course Hospital Course: hpi: 68-year-old male with pertinent history of COPD on prn home oxygen but states doesnt use at baseline, former tobacco use disorder, mixed hyperlipidemia, hypertension, gastroesophageal reflux disease, BPH who presents to the emergency department for evaluation of dyspnea and wheezing. Patient states it started 3 days prior to presentation. His symptoms have been progressive. Patient states he has been having dyspnea which is worse with exertion. No orthopnea or PND. Minimal dry cough. Also had associated wheezing which was not relieved with home oxygen or inhalers. No fevers or chills. He denies chest discomfort, palpitations, abdominal pain, changes in urinary or bowel habits. Patient states he quit smoking. Has never been intubated in the past. In the emergency department, patient with significant dyspnea and hypoxia:Acute hypoxemic hypercapnic respiratory failure secondary to acute exacerbation of COPD:initially required rescue BiPAP for respiratory acidosis. Given IV steroids, breathing treatments in the ER. Chest x-ray without any acute abnormality improved with nebs/steriods -going home with po steriods follow up with pulm outpatient.continue home oxygen Plan: Prednisone 40 mg q.d. for 4 days., continue home medications Follow up with PCP outpatient Above management discussed with the patient detail length he understand and in plan, time spent 45 minute, all questions answered. Time Attestation Total time managing care of this patient today: 45 mintues. Discharge Coordination Time (in mins): 45min Quality: Safe Use of Opioids Does Pt have an Active Cancer Diagnosis on the Problem List?: No Quality: Stroke Does the patient have a stroke diagnosis?: No Physical Exam Exam: Exam: Appearance: Alert.? Oriented X3.?. cvs: rrr, [id number] . res: clear to auscultation ,no rhonchii or wheezing abd: no rebound or guarding ,nt, bs present. ext pulses present , no cyanosis. neuro: axo3 , nonfocal. Vital Signs: Vital Signs: Last Vital Signs Temp 98.1 F 12/15/24 07:33 Pulse 80 12/15/24 11:09 Resp 16 12/15/24 11:09 BP 151/78 H 12/15/24 07:33 Pulse Ox 96 12/15/24 07:33 O2 Del Method Room Air 12/15/24 07:33 O2 Flow Rate 2 12/15/24 03:06 BMI result Body Mass Index 25.1 DS: Data Data Completed and Pending Completed studies during hospitalization [Text1]: Procedures Assistance with Respiratory Ventilation, Less than 24 Consecutive Hours, Continuous Positive Airway Pressure (05/16/24) Labs on day of discharge: Laboratory Results - last 24 hr 12/14/24 17:44 Respiratory Panel Duff See Note Adenovirus (Rapid PCR) Not Detected B.pert (TEM-PCR) Not Detected B.parapertussis DNA PCR Not Detected C. pneumoniae DNA (PCR) Not Detected Coronavirus OC43 (PCR) Not Detected Coronavirus HKU1 (PCR) Not Detected Coronavirus 229E (PCR) Not Detected Coronavirus NL63 (PCR) Not Detected Human Metapneumovir PCR Not Detected Influenza A (RT-PCR) Not Detected Influenza A (H1) PCR Not Detected Influ A (H1/09) PCR Not Detected Influenza A (H3) PCR Not Detected Influenza B (RT-PCR) Not Detected M. pneumoniae (PCR) Not Detected Parainfluenza 1 (PCR) Not Detected Parainfluenza 2 (PCR) Not Detected Parainfluenza 3 (PCR) Not Detected Parainfluenza 4 (PCR) Not Detected RSV (PCR) Not Detected Entero/Rhino (PCR) Not Detected SARS-CoV-2 RNA (RT-PCR) Not Detected Preliminary micro results at discharge 12/13/24 22:10 Blood Culture - Preliminary Blood - Venous No growth after 24 hours. 12/13/24 22:10 Blood Culture - Preliminary Blood - Venous No growth after 24 hours. Discharge Plan Discharge Anticipated Discharge Date/Time: 12/15/24 11:46 Patient Disposition: Home, Self-Care Discharge Diagnosis: Acute on chronic respiratory failure. COPD exacerbation Referrals: Physician,Unknown J [Primary Care Provider, Medical] - 1 Week Discharge Medications: New prednisone 20 mg tablet 40 mg PO DAILY Qty: 8 0RF Continued albuterol sulfate 90 mcg/actuation HFA aerosol inhaler 2 puff inhalation QID PRN (Reason: wheezing) Qty: 1 6RF omeprazole 20 mg Capsule,Delayed Release(Dr/Ec) 20 mg PO DAILY@0630 (DME) Aerochamber MV Spacer See Rx Instructions .Route Qty: 10 0RF Rx Instructions: As directed losartan 50 mg tablet 50 mg PO DAILY amlodipine 2.5 mg tablet 2.5 mg PO DAILY doxazosin 2 mg tablet 2 mg PO DAILY atorvastatin 10 mg tablet 10 mg PO DAILY ipratropium bromide 0.02 % solution 2.5 ml inhalation Q6H PRN (Reason: wheezing) albuterol sulfate 2.5 mg /3 mL (0.083 %) solution for nebulization 2.5 mg inhalation Q6H PRN (Reason: shortness of breath or wheezing) umeclidinium-vilanterol [Anoro Ellipta] 62.5-25 mcg/actuation blister with device 1 inh inhalation BEDTIME Centrum Silver Men [id number] mcg Tablet 1 tab PO DAILY Discharge Orders: Discharge Order (Routine); Ordered 12/15/24 Ordered By: Duldey Damian Diet: Advance to usual diet Activity on Discharge: As tolerated Stand Alone Forms: Patient Portal Discharge page Print Language: Sinhala Care Plan Goals: copd execerebation-improved with nebs/steriods -going home with po steriods follow up with pulm outpatient.continue home oxygen Health Concerns: as above. Plan of Treatment: lasha lee Assessment: As above. Patient Instructions: Chronic Lung Disease and Infection Prevention (DC) Discharge Date/Time: 12/15/24 12:16
--- NOTE | 2024-12-15 11:52 | MHC.CM.PN ---
Addendum entered by Smiley Alonzo 12/15/24 12:43: Per Patient report, he has an oxygen condenser at home. He states that he is ordered for 2L via [place] PRN. Original Note: Per MD rounds Home O2 evaluation ordered. Patient is medically cleared to discharge. He will discharge to home selfcare. Patient will arrange for transportation home.
== END 2024-12-15 12:16 | disposition home or self-care (01) | DRG 190 ==
LOC: HO.ED 12-14 03:56 → HO.EDOVER 12-14 04:43 → HO.S3 12-14 23:37
PROVIDERS: Admitting Provider Student in an Organized Health Care Education/Training Program; Emergency Provider Emergency Medicine; Visit Provider Internal Medicine
DX: J44.1 Chronic obstructive pulmonary disease with (acute) exacerbation (principal); J96.21 Acute and chronic respiratory failure with hypoxia; I10 Essential (primary) hypertension; K21.9 Gastro-esophageal reflux disease without esophagitis; N40.0 Benign prostatic hyperplasia without lower urinary tract symptoms; E78.2 Mixed hyperlipidemia; Z20.822 Contact with and (suspected) exposure to COVID-19; Z87.891 Personal history of nicotine dependence; Z79.899 Other long term (current) drug therapy
CPT/HCPCS: 36415; 71045; 80048; 80076; 82803; 83605; 83735; 83880; 84484; 85025; 85610; 87040; 87633; 87637; 93005; 94640; 99285; 99499; J0165; J0456; J0696; J1650; J2919

== ENCOUNTER → 2024-12-13 21:55 | Outpatient (BNV) | payer MEDICARE, SELFPAY | PROVIDERS: Admitting Provider Student in an Organized Health Care Education/Training Program; Emergency Provider Emergency Medicine; Visit Provider Internal Medicine Cardiovascular Disease | DX: I49.1 Atrial premature depolarization (principal); R00.0 Tachycardia, unspecified | CPT/HCPCS: 93010 ==

== ENCOUNTER → 2024-12-13 21:56 | Outpatient (BNV) | payer MEDICARE, SELFPAY | PROVIDERS: Emergency Provider Emergency Medicine; Visit Provider Radiology Diagnostic Radiology | DX: J90 Pleural effusion, not elsewhere classified (principal) | CPT/HCPCS: 71045 ==

== ENCOUNTER → 2024-12-14 04:16 | Outpatient (BNV) | payer MEDICARE, SELFPAY | PROVIDERS: Admitting Provider Student in an Organized Health Care Education/Training Program; Emergency Provider Emergency Medicine; Visit Provider Student in an Organized Health Care Education/Training Program | DX: J96.21 Acute and chronic respiratory failure with hypoxia (principal) | CPT/HCPCS: 99222 ==

== ENCOUNTER 2025-01-11 23:38 | Emergency (ER) | payer MEDICARE, SELFPAY ==
--- NOTE | 2025-01-11 | ECG_ITS ---
Test Reason : SOB Blood Pressure : */* mmHG Vent. Rate : 113 BPM Atrial Rate : 113 BPM P-R Int : 146 ms QRS Dur : 96 ms QT Int : 338 ms P-R-T Axes : 83 85 64 degrees QTcB Int : 463 ms Artifact in tracing Sinus tachycardia Biatrial enlargement Abnormal ECG When compared with ECG of 13-Dec-2024 21:56, Premature atrial complexes are no longer Present Referred By: Missy Peraza Electronically Signed By: KWAME MOREJON
--- NOTE | ~2025-01-11 | XR_ITS ---
CLINICAL HISTORY: sob Chest X-ray, 1 View COMPARISON: CR - XR CHEST 1V - 12/13/24 22:03 EDT FINDINGS: No consolidation. No pleural effusion. No pneumothorax. No cardiomegaly. No acute fracture. IMPRESSION: No acute findings. This document has been electronically signed by: Eliezer Gaston MD on 01/12/2025 02:24:33
--- NOTE | 2025-01-11 23:46 | ED.GENADULT ---
HPI - General Adult General Chief complaint: Dyspnea Stated complaint: SOB Time Seen by Provider: 01/11/25 23:44 Source: patient Mode of arrival: ambulatory Limitations: no limitations History of Present Illness ED Provider: Dr. Peraza HPI narrative: 69-year-old male history of COPD chronic respiratory failure on 2 L nasal cannula presented hospital today for acute shortness of breath that started half an hour ago. Patient was found satting at 73% by triage nurse and brought back to the ER. Related Data Home Medications ?Medication ?Instructions ?Recorded ?Confirmed omeprazole 20 mg capsule,delayed 20 mg PO DAILY@0630 01/31/21 12/14/24 release amlodipine 2.5 mg tablet 2.5 mg PO DAILY 03/11/23 12/14/24 doxazosin 2 mg tablet 2 mg PO DAILY 03/11/23 12/14/24 losartan 50 mg tablet 50 mg PO DAILY 03/11/23 12/14/24 atorvastatin 10 mg tablet 10 mg PO DAILY 05/24/23 12/14/24 ipratropium bromide 0.02 % 2.5 ml inhalation Q6H PRN wheezing 05/16/24 12/14/24 solution for inhalation albuterol sulfate 2.5 mg/3 mL 2.5 mg inhalation Q6H PRN 12/14/24 12/14/24 (0.083 %) solution for nebulization shortness of breath or wheezing [id number] 300 mcg-K 60 1 tab PO DAILY 12/14/24 12/14/24 mcg-lycop 600 mcg-lutein 300 mcg tablet (Centrum Silver Men) umeclidinium 62.5 mcg-vilanterol 1 inh inhalation BEDTIME 12/14/24 12/14/24 25 mcg/actuation powdr for inhalation (Anoro Ellipta) Previous Rx's ?Medication ?Instructions ?Recorded inhalational spacing device #10 ea 12/01/21 (Aerochamber MV spacer) prednisone 20 mg tablet 40 mg (2 x 20 mg) PO DAILY #8 tabs 12/15/24 albuterol sulfate 90 mcg/actuation 2 puff inhalation QID PRN wheezing 01/09/25 aerosol inhaler #1 ea azithromycin 250 mg tablet See Rx Instructions PO .COMPLEX #6 01/12/25 tabs prednisone 20 mg tablet 40 mg (2 x 20 mg) PO DAILY 5 days 01/12/25 #10 tabs Allergies Allergy/AdvReac Type Severity Reaction Status Date / Time No Known Allergies Allergy Verified 01/11/25 23:49 Review of Systems Review of Systems: Pertinent review of systems as mentioned in HPI. All other system otherwise negative. [facility] Past Medical History Medical History Severe chronic obstructive pulmonary disease COPD exacerbation On home O2 Chronic obstructive lung disease Chronic lung disease GERD (gastroesophageal reflux disease) HLD (hyperlipidemia) Hypertension Hypertension Surgical History History of appendectomy Social History Social History Household Members: Friend(s) Household Members Other:: daughter lives next door Housing: Apartment Do you presently have visiting nurse or other home services: No Alcohol intake: current Alcohol intake frequency: does not drink Alcohol type: beer Patient Tobacco Use Status: Former Tobacco user Tobacco use type: Cigarette Cigarette Packs Per Day: 1 Cigarettes Per Day: 20.0 Years Smoked: 50 e-Cigarette/Vaping Use: Never Used Second Hand Smoke Exposure: No Advance Directives: Yes Advance Directives on File: Yes Advance Directives Date on File: 02/26/22 service: No Current occupational status: employed Physical Exam ED Exam Exam: General: Appears to be in any severe respiratory distress Head: Normacephalic, atraumatic ENT: oral mucosa moist, neck supple, no tracheal deviation Cardiovascular: Tachycardic rate, regular rhythm, no murmurs, rubbing, gallops Respiratory: Bilateral wheezing on exam diminished lung sounds bilaterally Gastrointestinal: Soft, non distended, non tender, non guarding Extremities: No limb pain or swelling, no calf tenderness Neurological: Awake and alert, no facial droop noted Skin: Warm and dry Psychiatric: Appropriate mood and thoughts Vital Signs: Vital Signs - 24 hr 01/11/25 23:47 01/12/25 00:16 01/12/25 00:16 Temperature Pulse Rate 120 H 108 H Respiratory Rate 30 H 18 18 Blood Pressure 169/95 H Pulse Oximetry 72 L Oxygen Delivery Method Room Air 01/12/25 01:28 Temperature 97.9 F Pulse Rate 85 Respiratory Rate 17 Blood Pressure 115/64 Pulse Oximetry 94 Oxygen Delivery Method BiPAP BMI result Body Mass Index 24.4 Medications Administered Discontinued Medications Generic Name Dose Route Start Last Admin Trade Name Bradford PRN Reason Stop Dose Admin Albuterol Sulfate 5 mg/ 0 mg 01/12/25 00:12 01/12/25 01:33 Albuterol/Ipratropium 3 ml INHALE 01/12/25 00:13 1 each ONCE ONE Administration Magnesium Sulfate 2 gm in 50 mls @ 50 mls/hr 01/11/25 23:45 01/12/25 01:15 Magnesium Sulfate/H2o IV 01/12/25 00:44 Infused ONCE ONE Infusion Methylprednisolone Sodium Succinate 125 mg 01/11/25 23:45 01/12/25 00:00 Methylprednisolone Sod Succ 125 Mg/2 Ml Vial IVPUSH 01/11/25 23:46 125 mg ONCE ONE Administration Medical Decision Making Medical Decision Making [facility] Narrative: 69-year-old male history of COPD, chronic respiratory failure presenting to ER today for respiratory distress. Likely COPD exacerbation. Patient's work of breathing is in the upper 40s respiratory rate. We will plan to place the patient on BiPAP at this time. DuoNeb treatment will be provided to the patient IV Solu-Medrol, IV magnesium will be given to the patient as well. 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 Basic lab work will be sent off including a VBG. Chest x-ray will be obtained. Patient's chest x-ray is clear. On reassessment patient appears to be improving. I did titrate patient off BiPAP. He is currently on nasal cannula we will continue to observe patient. After continued observation the patient's O2 saturation is around 93%. We will plan to discharge patient at this time. Prednisone will be prescribed to the patient. We will also start patient on azithromycin Return precautions provided. Patient will be discharged Differential Diagnosis Differential Diagnoses: The differential diagnosis associated with the presentation includes COPD, pneumonia, respiratory failure Lab Data [facility] Lab Attestation statement: I reviewed the patient's lab results. 01/11/25 23:51 01/11/25 23:51 Labs: Lab Results 01/11/25 01/11/25 Range/Units 23:51 23:55 WBC 12.4 H (4.8-10.8) X10*3/uL RBC 4.14 L (4.60-5.80) X10*6/uL Hgb 14.1 (14.0-18.0) g/dl Hct 40.8 L (42.0-52.0) % MCV 98.6 H (80.0-98.0) fL MCH 34.1 H (27.0-33.0) pg MCHC 34.6 (31.0-36.0) g/dl RDW 11.9 (11.0-16.0) % Plt Count 299 D (160-400) X10*3/uL MPV 10.3 (9.4-12.4) fL Immature Gran % (Auto) 0.6 H (0.0-0.4) % Neut % (Auto) 56.5 (45-73) % Lymph % (Auto) 28.9 (20-40) % [place] % (Auto) 9.5 (2-11) % Eos % (Auto) 4.0 (0-4) % Baso % (Auto) 0.5 (0-2) % Lymph # (Auto) 3.6 (1.2-4.9) X10*3/uL [place] # (Auto) 1.2 (0.1-1.2) X10*3/uL Eos # (Auto) 0.5 H (0.0-0.4) X10*3/uL Baso # (Auto) 0.1 (0.0-0.2) X10*3/uL Abs Immat Gran (auto) 0.07 H (0.00-0.03) X10*3/uL Absolute Neuts (auto) 7.0 (2.0-8.3) x10*3/uL Absolute Nucleated RBC 0.000 (0.0-0.012) X10*3/uL Nucleated RBC % (auto) 0.0 (0.0-0.2) /100WBC VBG pH 7.31 L (7.32-7.43) VBG pCO2 53 mmHg VBG pO2 76 mmHg VBG HCO3 27 H (22-26) mmol/L VBG O2 Saturation 92.0 % VBG Base Excess 0.1 mmol/L Sodium 142 (135-145) mmol/L Potassium 3.5 (3.3-5.1) mmol/L Chloride 105 (96-108) mmol/L Carbon Dioxide 27 (22-29) mmol/L Anion Gap 14 (12-20) BUN 12 (9-16) mg/dL Creatinine 1.11 (0.5-1.4) mg/dL Estim Creat Clear Calc 61.0 Estimated GFR > 60 Random Glucose 117 H (60-115) mg/dL Calcium 9.2 D (8.4-10.2) mg/dL Independent Interpretation I performed an independent interpretation of an: Plain X-Ray Radiology Impression Discussion of test interpretation with radiology: I have reviewed the radiologist's reading. Chronic Conditions COPD chronic respiratory failure Critical Care Time Critical Care Time Critical Care Time: Yes Total Critical Care Time: 40 Attestation: Time is exclusive of separately billable procedures. Time includes: direct patient care, patient reassessment, coordination of patient care, interpretation of data (laboratory data, pulse oximetry, arterial blood gases and chest xrays), review of patient's medical records, medical consultation and documentation of patient care. Procedures excluded from critical care time: central intravenous line placement and electrocardiography. Discharge Plan Discharge Clinical Impression: Acute on chronic hypoxic respiratory failure, COPD (chronic obstructive pulmonary disease) Patient Disposition: Home, Self-Care Instructions: COPD (Chronic Obstructive Pulmonary Disease) (ED) Prescriptions: New prednisone 20 mg tablet 40 mg PO DAILY 5 Days Qty: 10 0RF azithromycin 250 mg tablet See Rx Instructions .ROUTE .COMPLEX Qty: 6 0RF Rx Instructions: For 250 mg dose pack: take 500 mg today (day 1), then 250 mg for 4 days (days 2-5) No Action albuterol sulfate 90 mcg/actuation HFA aerosol inhaler 2 puff inhalation QID PRN (Reason: wheezing) Qty: 1 6RF omeprazole 20 mg Capsule,Delayed Release(Dr/Ec) 20 mg PO DAILY@0630 ([facility]) Aerochamber MV Spacer See Rx Instructions .Route Qty: 10 0RF Rx Instructions: As directed losartan 50 mg tablet 50 mg PO DAILY amlodipine 2.5 mg tablet 2.5 mg PO DAILY doxazosin 2 mg tablet 2 mg PO DAILY atorvastatin 10 mg tablet 10 mg PO DAILY ipratropium bromide 0.02 % solution 2.5 ml inhalation Q6H PRN (Reason: wheezing) albuterol sulfate 2.5 mg /3 mL (0.083 %) solution for nebulization 2.5 mg inhalation Q6H PRN (Reason: shortness of breath or wheezing) umeclidinium-vilanterol [Anoro Ellipta] 62.5-25 mcg/actuation blister with device 1 inh inhalation BEDTIME Centrum Silver Men [id number] mcg Tablet 1 tab PO DAILY prednisone 20 mg tablet 40 mg PO DAILY Qty: 8 0RF Print Language: Belarusian
[2025-01-11 23:47] VITALS: BP 169/95; PULSE 120; RESP 30; O2SAT 72; BMI 24.4
[2025-01-11 23:55] LABS: MANUAL DIFF FLAG NO
[2025-01-11 23:56] LABS: Hematocrit 40.8 % (42.0-52.0); Hemoglobin 14.1 g/dl (14.0-18.0); Imm Gran Abs Auto 0.07 X10*3/uL (0.00-0.03); Imm Gran Pct Auto 0.6 % (0.0-0.4); Lymphocytes Absolute Auto 3.6 X10*3/uL (1.2-4.9); Mean Corpuscular HGB Conc 34.6 g/dl (31.0-36.0); Mean Corpuscular Hemoglobin 34.1 pg (27.0-33.0); Mean Corpuscular Volume 98.6 fL (80.0-98.0); NRBC Abs Auto 0.000 X10*3/uL (0.0-0.012); NRBC Pct Auto 0.0 /100WBC (0.0-0.2); Platelet Count 299 X10*3/uL (160-400); Red Blood Count 4.14 X10*6/uL (4.60-5.80); White Blood Count 12.4 X10*3/uL (4.8-10.8)
[2025-01-11 23:58] LABS: Venous Blood Gas Refer to POC result
[2025-01-12] LABS: VBG HCO3 27 mmol/L (22-26); VBG O2 % Saturation 92.0 %
[2025-01-12] MEDS: Magnesium Sulfate/H2O 2 GM/50 ML PIGGYBACK IV
[2025-01-12 00:10] LABS: Anion Gap 14 (12-20); Blood Urea Nitrogen 12 mg/dL (9-16); Calcium 9.2 mg/dL (8.4-10.2); Carbon Dioxide 27 mmol/L (22-29); Chloride 105 mmol/L (96-108); Creatinine Clr Calc Pharmacy 61.0; Estimated Glomerular Filt Rate > 60; Potassium 3.5 mmol/L (3.3-5.1); Sodium 142 mmol/L (135-145)
[2025-01-12 00:16] VITALS: PULSE 107; PULSE 108; RESP 18; O2SAT 95; O2SAT 97
[2025-01-12 01:28] VITALS: BP 115/64; PULSE 85; RESP 17; TEMP 36.6; O2SAT 94
[2025-01-12] MEDS: Albuterol Sulfate 5 MG, Albuterol/Iprat 2.5/0.5MG 3 ML 3 ML INHALE (01:33)
[2025-01-12 04:00] VITALS: BP 129/63; PULSE 85; RESP 20; TEMP 36.9; O2SAT 94
[2025-01-12 04:10] VITALS: BP 129/63; PULSE 85; RESP 20; TEMP 36.9; O2SAT 94
== END 2025-01-12 04:11 | disposition home or self-care (01) ==
PROVIDERS: Emergency Provider Student in an Organized Health Care Education/Training Program
DX: J44.9 Chronic obstructive pulmonary disease, unspecified (principal); R06.02 Shortness of breath; Z99.81 Dependence on supplemental oxygen; Z79.899 Other long term (current) drug therapy; Z87.891 Personal history of nicotine dependence
CPT/HCPCS: 36415; 71045; 80048; 82803; 85025; 93005; 94640; 96365; 96375; 99284; J2919; J3475

== ENCOUNTER → 2025-01-11 23:45 | Outpatient (BNV) | payer MEDICARE, SELFPAY | PROVIDERS: Emergency Provider Student in an Organized Health Care Education/Training Program; Visit Provider Radiology Diagnostic Radiology | DX: R06.02 Shortness of breath (principal) | CPT/HCPCS: 71045 ==

== ENCOUNTER → 2025-01-11 23:50 | Outpatient (BNV) | payer MEDICARE, SELFPAY | PROVIDERS: Emergency Provider Student in an Organized Health Care Education/Training Program; Visit Provider Internal Medicine | DX: R00.0 Tachycardia, unspecified (principal); I51.7 Cardiomegaly | CPT/HCPCS: 93010 ==

== ENCOUNTER 2025-01-20 14:43 | Emergency (ER) | payer MEDICARE, SELFPAY ==
[2025-01-20] VITALS (13 sets, daily range): BP systolic 111–156; BP diastolic 54–117; PULSE 23–122; RESP 10–22; TEMP 36.3–36.8; O2SAT 86–97; BMI 24.1
--- NOTE | 2025-01-20 | ECG_ITS ---
Test Reason : SOB Blood Pressure : */* mmHG Vent. Rate : 114 BPM Atrial Rate : 114 BPM P-R Int : 140 ms QRS Dur : 96 ms QT Int : 352 ms P-R-T Axes : 83 85 56 degrees QTcB Int : 485 ms Sinus tachycardia Right atrial enlargement Borderline ECG When compared with ECG of 11-Jan-2025 23:50, No significant change was found Referred By: Generic ED Physician Electronically Signed By: Kvng Sanchez
--- NOTE | ~2025-01-20 | XR_ITS ---
CLINICAL HISTORY: sob 1 view chest x-ray Comparison: CR - XR CHEST 1V - 01/12/25 01:10 EDT Findings: The lungs are clear. Heart size is normal. No acute fracture. IMPRESSION: 1. No acute findings. This document has been electronically signed by: Mervat Stockton MD on 01/20/2025 17:16:05
[2025-01-20 15:09] LABS: MANUAL DIFF FLAG NO
[2025-01-20 15:16] LABS: Hematocrit 39.4 % (42.0-52.0); Hemoglobin 13.8 g/dl (14.0-18.0); Imm Gran Abs Auto 0.11 X10*3/uL (0.00-0.03); Imm Gran Pct Auto 0.8 % (0.0-0.4); Lymphocytes Absolute Auto 1.5 X10*3/uL (1.2-4.9); Mean Corpuscular HGB Conc 35.0 g/dl (31.0-36.0); Mean Corpuscular Hemoglobin 34.0 pg (27.0-33.0); Mean Corpuscular Volume 97.0 fL (80.0-98.0); NRBC Abs Auto 0.000 X10*3/uL (0.0-0.012); NRBC Pct Auto 0.0 /100WBC (0.0-0.2); Platelet Count 242 X10*3/uL (160-400); Red Blood Count 4.06 X10*6/uL (4.60-5.80); White Blood Count 14.3 X10*3/uL (4.8-10.8)
[2025-01-20 15:26] LABS: Alanine Aminotransferase 17 U/L (0-40); Albumin Level 4.1 g/dL (3.5-5.0); Alkaline Phosphatase 60 U/L (39-117); Anion Gap 12 (12-20); Aspartate Amino Transferase 26 U/L (5-37); Blood Urea Nitrogen 13 mg/dL (9-16); Calcium 8.7 mg/dL (8.4-10.2); Carbon Dioxide 27 mmol/L (22-29); Chloride 107 mmol/L (96-108); Creatinine Clr Calc Pharmacy 67.0; Estimated Glomerular Filt Rate > 60; Magnesium 1.9 mg/dL (1.6-2.6); Potassium 4.0 mmol/L (3.3-5.1); Sodium 142 mmol/L (135-145); Total Protein 6.6 g/dL (6.5-8.0)
[2025-01-20 15:30] LABS: COVID-19 Test Negative (Negative); IDNOW Serial# 55D5AD1C; IDNOW Serial# 58CA691E; Influenza B2 Negative (Negative)
[2025-01-20 15:36] LABS: NT Pro B Type Natriuretic Pept 102.0 pg/mL (<300)
[2025-01-20 15:39] LABS: Troponin-I High Sensitivity < 2.7 ng/L (<3.5-35.0)
--- NOTE | 2025-01-20 16:54 | ED.GENADULT ---
HPI - General Adult General Chief complaint: Dyspnea Stated complaint: Difficulty Breathing Time Seen by Provider: 01/20/25 16:54 History of Present Illness ED Provider: Guanakito GANDHI narrative: The patient is a 69-year-old male with a history of COPD. He is a former smoker. He says he last had a cigarette about a year ago. He has oxygen at home that he uses only on an as-needed basis. He also has a nebulizer machine at home. He says that he felt abruptly short of breath this morning at around 10:00. He tried to treat himself at home with his inhalers but ultimately he felt he was doing poorly and his fiancee called an ambulance and he was brought to the hospital. He was given treatments by paramedics and was feeling somewhat better by the time he got here. At the time that I saw him he has been waiting for 2 hours and he was feeling considerably better at that point. He says that he was feeling fine yesterday. He can not think of anything that might have triggered a COPD exacerbation today although he said he did have the windows open in his house this morning. He denies any fever, sweats, chills. No significant sputum production. No chest pain or pleuritic pain. No abdominal pain. No nausea or vomiting. No pain or swelling in his legs. Related Data Home Medications ?Medication ?Instructions ?Recorded ?Confirmed omeprazole 20 mg capsule,delayed 20 mg PO DAILY@0630 01/31/21 12/14/24 release amlodipine 2.5 mg tablet 2.5 mg PO DAILY 03/11/23 12/14/24 doxazosin 2 mg tablet 2 mg PO DAILY 03/11/23 12/14/24 losartan 50 mg tablet 50 mg PO DAILY 03/11/23 12/14/24 atorvastatin 10 mg tablet 10 mg PO DAILY 05/24/23 12/14/24 ipratropium bromide 0.02 % 2.5 ml inhalation Q6H PRN wheezing 05/16/24 12/14/24 solution for inhalation albuterol sulfate 2.5 mg/3 mL 2.5 mg inhalation Q6H PRN 12/14/24 12/14/24 (0.083 %) solution for nebulization shortness of breath or wheezing [id number] 300 mcg-K 60 1 tab PO DAILY 12/14/24 12/14/24 mcg-lycop 600 mcg-lutein 300 mcg tablet (Centrum Silver Men) umeclidinium 62.5 mcg-vilanterol 1 inh inhalation BEDTIME 12/14/24 12/14/24 25 mcg/actuation powdr for inhalation (Anoro Ellipta) Previous Rx's ?Medication ?Instructions ?Recorded inhalational spacing device #10 ea 12/01/21 (Aerochamber MV spacer) prednisone 20 mg tablet 40 mg (2 x 20 mg) PO DAILY #8 tabs 12/15/24 albuterol sulfate 90 mcg/actuation 2 puff inhalation QID PRN wheezing 01/09/25 aerosol inhaler #1 ea azithromycin 250 mg tablet See Rx Instructions PO .COMPLEX #6 01/12/25 tabs prednisone 20 mg tablet 40 mg (2 x 20 mg) PO DAILY 5 days 01/12/25 #10 tabs azithromycin 250 mg tablet 250 mg PO DAILY 4 days #4 tabs 01/20/25 prednisone 20 mg tablet 20 mg PO DAILY #12 tabs 01/20/25 Allergies Allergy/AdvReac Type Severity Reaction Status Date / Time No Known Allergies Allergy Verified 01/20/25 14:55 Review of Systems Review of Systems: Yes all other systems are reviewed and are negative [facility] Past Medical History Medical History Severe chronic obstructive pulmonary disease COPD exacerbation On home O2 Chronic obstructive lung disease Chronic lung disease GERD (gastroesophageal reflux disease) HLD (hyperlipidemia) Hypertension Hypertension Surgical History History of appendectomy Social History Social History Household Members: Friend(s) Household Members Other:: daughter lives next door Housing: Apartment Do you presently have visiting nurse or other home services: No Alcohol intake: current Alcohol intake frequency: does not drink Alcohol type: beer Patient Tobacco Use Status: Former Tobacco user Tobacco use type: Cigarette Cigarette Packs Per Day: 1 Cigarettes Per Day: 20.0 Years Smoked: 50 Smoked in Last 30 Days: No e-Cigarette/Vaping Use: Never Used Second Hand Smoke Exposure: No Use of substances other than those prescribed or required for medical reasons: No Advance Directives: Yes Advance Directives on File: Yes Advance Directives Date on File: 02/26/22 Do you have a plan to hurt others: No Plan service: No Current occupational status: employed Physical Exam ED Vital Signs: Vital Signs - 24 hr 01/20/25 14:50 01/20/25 16:06 01/20/25 16:21 Temperature 98.1 F Pulse Rate 122 H 91 104 H Respiratory Rate 22 H 18 18 Blood Pressure 135/117 H 111/65 114/72 Pulse Oximetry 97 95 93 Oxygen Delivery Method Nasal Cannula Nasal Cannula Nasal Cannula Oxygen Flow Rate 4 2 01/20/25 16:49 01/20/25 17:16 01/20/25 17:25 Temperature 97.4 F Pulse Rate 96 89 Respiratory Rate 15 16 Blood Pressure 126/69 Pulse Oximetry 92 86 L Oxygen Delivery Method Room Air Room Air Oxygen Flow Rate 01/20/25 17:25 01/20/25 17:26 01/20/25 18:12 Temperature Pulse Rate 90 90 Respiratory Rate 15 15 Blood Pressure 126/58 L Pulse Oximetry 90 L 93 Oxygen Delivery Method Nasal Cannula Nasal Cannula Oxygen Flow Rate 2 4 01/20/25 18:27 01/20/25 19:18 01/20/25 19:59 Temperature 98 F Pulse Rate 103 H 110 H 110 H Respiratory Rate 10 L 12 20 Blood Pressure 118/54 L 127/58 L Pulse Oximetry 92 93 Oxygen Delivery Method Nasal Cannula Nasal Cannula Oxygen Flow Rate 2 1 01/20/25 21:03 01/20/25 21:27 Temperature 98.3 F 98.3 F Pulse Rate 113 H 113 H Respiratory Rate 20 20 Blood Pressure 128/57 L 128/57 L Pulse Oximetry 94 94 Oxygen Delivery Method Room Air Room Air Oxygen Flow Rate BMI result Body Mass Index 24.1 Const Other: The patient is a 69-year-old male who was awake and alert. He did not appear in any distress at the time that I saw him. Orientation/consciousness: patient oriented x3 HENMT Other: The face is symmetrical. ?Mucous membranes moist. Eyes Other: Pupils are round equal, conjunctivae are clear, extraocular movements intact Neck Neck: Yes normal visual inspection, Yes full ROM and Yes no JVD Resp Other: The patient has markedly decreased breath sounds in both lung godfrey with some very occasional wheezes. No crackles. No increased work of breathing. Cardio Rate: regular rate Rhythm: regular rhythm Heart sounds: S1 normal heart sound present and S2 normal heart sound present GI Other: The abdomen is soft and nontender Skin Other: Skin is pale and dry Neuro General: patient oriented x3, tone normal, moves all extremities, no focal motor deficits and CN's II-XI intact bilaterally Extrem Other: There is no calf swelling or tenderness. No asymmetry. No peripheral edema. Medications Administered Discontinued Medications Generic Name Dose Route Start Last Admin Trade Name Freq PRN Reason Stop Dose Admin Albuterol Sulfate 2.5 mg/ 0 mg 01/20/25 17:12 01/20/25 17:16 Albuterol/Ipratropium 3 ml INHALE 01/20/25 17:13 1 dose ONCE ONE Administration Albuterol Sulfate 2.5 mg/ 0 mg 01/20/25 18:06 01/20/25 18:11 Albuterol/Ipratropium 3 ml INHALE 01/20/25 18:07 1 dose ONCE ONE Administration Albuterol Sulfate 2.5 mg/ 0 mg 01/20/25 19:53 01/20/25 19:56 Albuterol/Ipratropium 3 ml INHALE 01/20/25 19:54 5 dose ONCE ONE Administration Magnesium Sulfate 2 gm in 50 mls @ 150 mls/hr 01/20/25 17:01 01/20/25 17:34 Magnesium Sulfate/H2o IV 01/20/25 17:20 Infused ONCE ONE Infusion Azithromycin 500 mg/ Sodium 250 mls @ 125 mls/hr 01/20/25 18:47 01/20/25 21:21 Chloride IV 01/20/25 20:46 Infused ONCE ONE Infusion Methylprednisolone Sodium Succinate 80 mg 01/20/25 17:01 01/20/25 17:12 Methylprednisolone Sod Succ 125 Mg/2 Ml Vial IVPUSH 01/20/25 17:02 80 mg ONCE ONE Administration Prednisone 40 mg 01/20/25 20:57 01/20/25 21:11 Prednisone 20 Mg Tablet PO 01/20/25 20:58 40 mg ONCE ONE Administration Medical Decision Making Medical Decision Making MDM Narrative: The patient is a 69-year-old male with a history of significant COPD. He says that he has a home nebulizer machine and he also has p.r.n. home oxygen. He has been hospitalized multiple times for COPD. The patient says he had abrupt onset of shortness of breath this morning at around 10AM. No associated fever or sputum production. He was apparently quite tachycardic when he 1st arrived but by the time I saw him he looks quite comfortable. On in his lung exam he seemed to have very little air movement in all of his lung godfrey but this may be his baseline. The patient has an unchanged chest x-ray today. He has a mildly elevated white count of 14.3 but I suspect that this is probably a stress demargination. He has a normal C-reactive protein and he denies any symptoms of fever or sweats or chills. The patient was treated with IV steroids, multiple bronchodilator updraft treatments, and IV azithromycin. He was observed. Ultimately he was maintaining reasonably good oxygen saturations on room air and he was very eager to go home. He will be discharged on a course of prednisone and azithromycin and should follow up with his regular doctors or return to the emergency room if worse. Lab Data 01/20/25 15:04 01/20/25 15:04 Labs: Lab Results 01/20/25 01/20/25 Range/Units 15:04 17:39 WBC 14.3 H (4.8-10.8) X10*3/uL RBC 4.06 L (4.60-5.80) X10*6/uL Hgb 13.8 L (14.0-18.0) g/dl Hct 39.4 L (42.0-52.0) % MCV 97.0 (80.0-98.0) fL MCH 34.0 H (27.0-33.0) pg MCHC 35.0 (31.0-36.0) g/dl RDW 11.9 (11.0-16.0) % Plt Count 242 (160-400) X10*3/uL MPV 10.1 (9.4-12.4) fL Immature Gran % (Auto) 0.8 H (0.0-0.4) % Neut % (Auto) 80.2 H (45-73) % Lymph % (Auto) 10.3 L (20-40) % [place] % (Auto) 6.2 (2-11) % Eos % (Auto) 2.2 (0-4) % Baso % (Auto) 0.3 (0-2) % Lymph # (Auto) 1.5 (1.2-4.9) X10*3/uL [place] # (Auto) 0.9 (0.1-1.2) X10*3/uL Eos # (Auto) 0.3 (0.0-0.4) X10*3/uL Baso # (Auto) 0.0 (0.0-0.2) X10*3/uL Abs Immat Gran (auto) 0.11 H (0.00-0.03) X10*3/uL Absolute Neuts (auto) 11.4 H (2.0-8.3) x10*3/uL Absolute Nucleated RBC 0.000 (0.0-0.012) X10*3/uL Nucleated RBC % (auto) 0.0 (0.0-0.2) /100WBC D-Dimer High Sensitivty 192 NG/ML Sodium 142 (135-145) mmol/L Potassium 4.0 (3.3-5.1) mmol/L Chloride 107 (96-108) mmol/L Carbon Dioxide 27 (22-29) mmol/L Anion Gap 12 (12-20) BUN 13 (9-16) mg/dL Creatinine 1.01 (0.5-1.4) mg/dL Estim Creat Clear Calc 67.0 Estimated GFR > 60 Random Glucose 163 H (60-115) mg/dL Calcium 8.7 (8.4-10.2) mg/dL Magnesium 1.9 (1.6-2.6) mg/dL Total Bilirubin 0.7 (0.0-1.0) mg/dL AST 26 (5-37) U/L ALT 17 (0-40) U/L Alkaline Phosphatase 60 (39-117) U/L Troponin I High Sens < 2.7 (<3.5-35.0) ng/L C-Reactive Protein 0.35 (< or = 0.50) mg/dL NT-Pro-B Natriuret Pep 102.0 (<300) pg/mL Total Protein 6.6 (6.5-8.0) g/dL Albumin 4.1 (3.5-5.0) g/dL COVID-19 (GWYN) Negative (Negative) COVID-19 Clin Com See Note Influenza Type A (RUBEN) Negative (Negative) Influenza Type B (RUBEN) Negative (Negative) Influenza A & B Note See Note Independent Interpretation I performed an independent interpretation of an: EKG Interpretation: EKG at 1502 shows sinus tachycardia at 114 beats per minute. No significant change from previous. Critical Care Time Critical Care Time Critical Care Time: Yes Total Critical Care Time: 35 Attestation: The patient was critically ill with a high probability of imminent or life-threatening deterioration. ?I spent greater than 30 minutes of discontinuous time evaluating the patient, delivering critical care at the bedside, discussing evaluating data with consultants. ?Critical care time does not include time spent performing separately billable procedures or teaching. ?Time spent performing critical care with 35 minutes. Discharge Plan Discharge Clinical Impression: Acute exacerbation of chronic obstructive pulmonary disease Patient Disposition: Home, Self-Care Instructions: COPD (Chronic Obstructive Pulmonary Disease) (ED) Additional Instructions: Please continue to use your nebulizer machine at home every 4 hours as needed. You may use your home oxygen as well if you feel you need it. Please take the prednisone as prescribed once a day until done. Next dose tomorrow. Please take the azithromycin once a day until done as well. Next dose tomorrow. Drink a lot of fluids. Please plan on following up with your furnace mechanic and also with your new regular doctor. If you feel significantly worse please call the ambulance and returned to the emergency room. Prescriptions: New azithromycin 250 mg tablet 250 mg PO DAILY 4 Days Qty: 4 0RF Rx Instructions: start on day 2 of therapy prednisone 20 mg tablet 20 mg PO DAILY Qty: 12 0RF Rx Instructions: Take 3 tablets by mouth daily for 2 days then take 2 tablets by mouth daily for 3 days. No Action albuterol sulfate 90 mcg/actuation HFA aerosol inhaler 2 puff inhalation QID PRN (Reason: wheezing) Qty: 1 6RF omeprazole 20 mg Capsule,Delayed Release(Dr/Ec) 20 mg PO DAILY@0630 (DME) Aerochamber MV Spacer See Rx Instructions .Route Qty: 10 0RF Rx Instructions: As directed losartan 50 mg tablet 50 mg PO DAILY amlodipine 2.5 mg tablet 2.5 mg PO DAILY doxazosin 2 mg tablet 2 mg PO DAILY atorvastatin 10 mg tablet 10 mg PO DAILY ipratropium bromide 0.02 % solution 2.5 ml inhalation Q6H PRN (Reason: wheezing) albuterol sulfate 2.5 mg /3 mL (0.083 %) solution for nebulization 2.5 mg inhalation Q6H PRN (Reason: shortness of breath or wheezing) umeclidinium-vilanterol [Anoro Ellipta] 62.5-25 mcg/actuation blister with device 1 inh inhalation BEDTIME Centrum Silver Men [id number] mcg Tablet 1 tab PO DAILY prednisone 20 mg tablet 40 mg PO DAILY Qty: 8 0RF prednisone 20 mg tablet 40 mg PO DAILY 5 Days Qty: 10 0RF azithromycin 250 mg tablet See Rx Instructions .ROUTE .COMPLEX Qty: 6 0RF Rx Instructions: For 250 mg dose pack: take 500 mg today (day 1), then 250 mg for 4 days (days 2-5) Referrals: Rupert Diaz MD [Physician, Pulmonology] Interventions: ED Discharge Assessment Last Done: 01/20/25 21:27 Discharge Date/Time: 01/20/25 21:28 Print Language: French
[2025-01-20] MEDS: Magnesium Sulfate/H2O 2 GM/50 ML PIGGYBACK IV (17:13)
--- NOTE | 2025-01-20 17:14 | PC.NURSE ---
medication administered per provider order. pt receiving breathing tx via RT at this time. effectiveness pending.
[2025-01-20] MEDS: Albuterol Sulfate 2.5 MG, Albuterol/Iprat 2.5/0.5MG 3 ML 3 ML INHALE ×3 (17:16→19:56)
--- NOTE | 2025-01-20 17:28 | PC.NURSE ---
pt noted to desat to 86% on RA while receiving breathing tx - pt titrated to 2L and then 4L via NC w/ good effect. all other vss and up to date. nsr on the tie up worker. provider notified/aware.
[2025-01-20 18:24] LABS: D Dimer High Sensitivity 192 NG/ML
--- NOTE | 2025-01-20 19:18 | PC.NURSE ---
Assumed care of pt, presents with Shortness of breath, hx of COPD 2L n/c PRN at home, pt states that symptoms started this morning at home, pt used his inhaler at home with no relief, aaox4, nad, pending dispo, pt stated that he wants to go home after IV therapy, aware
== END 2025-01-20 21:28 | disposition home or self-care (01) ==
PROVIDERS: Emergency Provider Emergency Medicine
DX: J44.1 Chronic obstructive pulmonary disease with (acute) exacerbation (principal); I10 Essential (primary) hypertension; Z87.891 Personal history of nicotine dependence; Z79.899 Other long term (current) drug therapy; Z87.19 Personal history of other diseases of the digestive system
CPT/HCPCS: 36415; 71045; 80053; 83735; 83880; 84484; 85025; 85379; 86140; 87502; 87635; 93005; 94640; 96365; 96366; 96367; 96375; 99285; J0456; J2919; J3475

== ENCOUNTER → 2025-01-20 15:02 | Outpatient (BNV) | payer MEDICARE, SELFPAY | PROVIDERS: Emergency Provider Emergency Medicine; Visit Provider Internal Medicine Cardiovascular Disease | DX: I51.7 Cardiomegaly (principal); R00.0 Tachycardia, unspecified | CPT/HCPCS: 93010 ==

== ENCOUNTER → 2025-01-20 15:10 | Outpatient (BNV) | payer MEDICARE, SELFPAY | PROVIDERS: Emergency Provider Emergency Medicine; Visit Provider Nuclear Medicine | DX: R06.02 Shortness of breath (principal) | CPT/HCPCS: 71045 ==

== ENCOUNTER 2025-02-12 10:26 | Outpatient (AMB) | payer MEDICARE, SELFPAY ==
--- NOTE | 2025-02-12 10:27 | MHC.PC.OV ---
Vital Signs 02/12/25 10:31 Height 5 ft 7 in Weight 162 lb 8 oz BMI 25.4 BP 140/80 H Blood Pressure Location Lt brachial Position Sitting Pulse 77 Pulse Source Pulse Oximeter Temp 97.6 F Temp Source Temporal Artery Scan Pulse Oximetry (%) 98 Oxygen Delivery Method Room Air Intake Visit Reasons: [facility] / Dr Britt - see comments Performance Engineer Required: No Accompanied by: Self / Same As Patient Allergies No Known Allergies Allergy (Verified 02/12/25 10:28) Medication List - Last Reconciled 02/12/25 by Addison Espana MD albuterol sulfate 2.5 mg inhalation Q6H PRN albuterol sulfate 90 mcg/actuation 2 puffs inhalation QID PRN amlodipine 2.5 mg PO DAILY atorvastatin 10 mg PO DAILY doxazosin 2 mg PO DAILY inhalational spacing device (Aerochamber MV spacer) As directed ipratropium bromide 2.5 mL inhalation Q6H PRN losartan 50 mg PO DAILY [id number] mcg (Centrum Silver Men) 1 tab PO DAILY omeprazole 20 mg PO DAILY@0630 umeclidinium-vilanterol 62.5-25 mcg/actuation (Anoro Ellipta) 1 inh inhalation BEDTIME Tobacco use date assessed: 02/12/25 Fall risk assessment: No Falls in past year Last assessed Fall Risk: 02/12/25 Dental Screening Dental Screen Date: 02/12/25 Did you have a dental visit in the last 12 months?: No Did you have a dental problem in the last 6 months where you did not have access to dental care?: No HPI HPI Comments History of Present Illness Details The patient is a 69-year-old male presenting with low back pain. The patient reports that the pain originates in the lower back and occasionally radiates towards the hip, knee, and anderson. He describes the pain as ranging between a 7 to 10 in severity on some occasions. The patient believes this might be related to his twin brother's back issues, suggesting a pain correlation theory between them. The pain worsened significantly and disturbed his sleep, particularly when changing positions or being awakened by snoring. Initially, the patient tried [id number]-mul-[id number] medication including Aleve and 500 mg of Tylenol, which provided some relief. Despite this, the pain persists especially at night. 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 The chronicity of the condition seems to be escalating, indicating potential structural or degenerative contributions. Medical History: - Chronic Obstructive Pulmonary Disease (COPD), uses supplemental oxygen as needed. - Hypertension, managed with medications. - Gastroesophageal Reflux Disease (GERD), treated with omeprazole. - Hypercholesterolemia, previously managed with atorvastatin. - Benign Prostatic Hyperplasia (BPH), managed with doxazosin. - History of tobacco use disorder; quit smoking 1.5 years ago. 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 - Quitted smoking 1.5 years ago, previously smoked a pack per day for 50 years. - Plays golf actively and is affected by smoke exposure during activities. - Recently active in dating; has a stable relationship after past distressing relationships. - , with past bereavement from 's pancreatic cancer. - Uses nicotine alternatives (Zyn pouches) post-smoking cessation. [facility] Medical History (Updated 02/12/25 @ 10:59 by Addison Espana MD) Acute bilateral low back pain HLD (hyperlipidemia) Hypertension BPH (benign prostatic hyperplasia) Severe chronic obstructive pulmonary disease COPD exacerbation On home O2 Chronic obstructive lung disease Chronic lung disease GERD (gastroesophageal reflux disease) Hypertension Surgical History History of colonoscopy (~01/08/15) History of appendectomy Family History (Updated 02/12/25 @ 10:37 by Meli Gordillo MA) Mother No problems noted. Father No problems noted. Social History Household Members: Friend(s) Household Members Other:: daughter lives next door Housing: Apartment Do you presently have visiting nurse or other home services: No Alcohol intake: current Alcohol intake frequency: does not drink Alcohol type: beer Patient Tobacco Use Status: Former Tobacco user Tobacco use type: Cigarette Cigarette Packs Per Day: 1 Cigarettes Per Day: 20.0 Years Smoked: 50 e-Cigarette/Vaping Use: Never Used Second Hand Smoke Exposure: No Advance Directives Date on File: 02/26/22 service: No Current occupational status: employed Cognitive needs: No Hearing needs: No Vision needs: Yes (rx glasses) Questionnaire PHQ-9 Over the last 2 weeks, how often have you been bothered by any of the following problems? 1. Little interest or pleasure in doing things: not at all 2. Feeling down, depressed, or hopeless: not at all 3. Trouble falling or staying asleep, or sleeping too much: not at all 4. Feeling tired or having little energy: not at all 5. Poor appetite or overeating: not at all 6. Feeling bad about yourself - or that you are a failure or have let yourself or your family down: not at all 7. Trouble concentrating on things, such as reading the newspaper or watching television: not at all 8. Moving or speaking so slowly that other people could have noticed. Or the opposite - being so fidgety or restless that you have been moving around a lot more than usual: not at all 9. Thoughts that you would be better off or of hurting yourself in some way: not at all Total score: 0 Depression Screening Interpretation: Negative Depression Screening Done: Yes 07002 - PHQ-9 Billing: Yes Source: Developed by Drs. Toy Larsen, Vaishnavi Barbosa, Crispin Ross and colleagues, with an educational adolfo from [employer]. Thrive Questionnaire Date Thrive assessed: 02/12/25 I am a: Patient What is your living situation today?: I have a steady place to live Within the past 12 months, did the food you bought not last and you didn't have the money to get more?: Never true Within the past 12 months, did you worry whether your food would run out before you got money to buy more?: Never true Do you have trouble paying for medicines?: No Do you have trouble getting transportation to medical appointments?: No Do you have trouble paying your heating and electricity bill?: No Do you have trouble taking care of your child, family member or friend?: No Do you have trouble with day-to-day activities such as bathing, preparing meals, shopping, managing finances, etc.?: No Are you currently unemployed and looking for a job?: No Are you interested in more education?: No THRIVE Score: 0 AUDIT C Alcohol Use Questionnaire (AUDIT-C) 1. How often do you have a drink containing alcohol?: Monthly or less 2. How many drinks containing alcohol do you have on a typical day when you are drinking?: 1 or 2 3. How often do you have six or more drinks on one occasion?: Less than monthly Total Score: 2 Score Reviewed/Action Taken: Yes YAMINI-7 AMB Questionnaire YAMINI-7 Date YAMINI - 7 assessed: 02/12/25 Feeling nervous, anxious, or on edge: 0 = Not at all Not being able to stop or control worryin = Not at all Worrying too much about different things: 0 = Not at all Trouble relaxin = Not at all Being so restless that it is hard to sit still: 0 = Not at all Becoming easily annoyed or irritable: 0 = Not at all Feeling afraid as if something awful might happen: 0 = Not at all Total YAMINI-7 score (0-4 normal; 5-9 mild; 10-14 moderate; 15-21 severe): 0 Source: Developed by Drs. Toy Larsen, Vaishnavi Barbosa, Crispin Ross and colleagues, with an educational adolfo from [employer]. YAMINI-7 Assessment Billing YAMINI-7 Assessment Tool: YAMINI-7 Assessment 21037 Physical exam (Primary Care) Vital Signs: Last Vital Signs Temp 97.6 F 02/12/25 10:31 Pulse 77 02/12/25 10:31 BP 140/80 H 02/12/25 10:31 Pulse Ox 98 02/12/25 10:31 Oxygen Delivery Method Room Air 02/12/25 10:31 BMI result Body Mass Index 25.4 Tobacco/Smoking Status: Tobacco use Status Tobacco use date assessed 02/12/25 02/12/25 10:29 Patient Tobacco Use Status Former Tobacco user 02/12/25 10:29 Tobacco use type Cigarette 02/12/25 10:29 e-Cigarette/Vaping Use Never Used 02/12/25 10:29 PHQ-9: PHQ-9 Score PHQ-9: Total score 0 02/12/25 10:36 Depression Screening Interpretation: Negative Thrive Assessment: Date of Thrive Assessment Date Thrive assessed 02/12/25 02/12/25 10:29 Const Other: General: +Alert and oriented, Well nourished, No acute distress. Eye: Pupils are equal, round and reactive to light, Intact accommodation, Extraocular movements are intact, Normal conjunctiva, Vision unchanged. HENT: Normocephalic, Atraumatic, Tympanic membranes are clear, Normal hearing, Oral mucosa is moist, No pharyngeal erythema, Ear canals patent. Respiratory: Lungs CTA bilaterally, No wheeze, Respirations are non-labored. Cardiovascular: Regular rate, Regular rhythm, S1 auscultated, S2 auscultated, No murmur, Good pulses equal in all extremities, Normal peripheral perfusion, No edema. Gastrointestinal: Soft, Non-tender, Non-distended, Normal bowel sounds, No organomegaly. Musculoskeletal: Normal range of motion, Normal strength, No tenderness, No swelling, No deformity, Normal gait. Integumentary: Warm, Dry, Pinch, Intact. Neurologic: Alert, Oriented, Normal sensory, Normal motor function, No focal defects, Cranial Nerves II-XII are grossly intact, Normal deep tendon reflexes. Psychiatric: Cooperative, Appropriate mood & affect, Normal judgment. Coding Level of Care Code New Pt Level 4 (89053) Diagnoses Severe chronic obstructive pulmonary disease J44.9 Screening for lung cancer Z12.2 Primary hypertension I10 Hypertension type: primary hypertension Gastroesophageal reflux disease without esophagitis K21.9 Esophagitis presence: without esophagitis BPH (benign prostatic hyperplasia) N40.0 Acute bilateral low back pain M54.50 HLD (hyperlipidemia) E78.5 Additional Codes PHQ-9 - 35668 - PHQ-9 Billing: Yes ([id number]) YAMINI-7 Assessment Billing - YAMINI-7 Assessment Tool: YAMINI-7 Assessment 03585 ([id number]) Assessment & Plan Assessment & Plan (1) Severe chronic obstructive pulmonary disease: Comment: - Continue with current regimen including Anoro Ellipta, albuterol, and ipratropium. - Reinforce smoke avoidance during golfing, as exacerbations noted with poor air quality. Code(s): J44.9 - Chronic obstructive pulmonary disease, unspecified Category: Medical (2) Screening for lung cancer: Comment: - Completed yearly and following with lung cancer screening program Code(s): Z12.2 - Encounter for screening for malignant neoplasm of respiratory organs Category: Medical (3) Hypertension: Comment: - Continue Amlodipine & Losartan 50mg with continued pressure monitoring at home Code(s): I10 - Essential (primary) hypertension Category: Medical Qualifiers: Hypertension type: primary hypertension Qualified Code(s): I10 - Essential (primary) hypertension (4) GERD (gastroesophageal reflux disease): Comment: - Continue omeprazole as needed. Code(s): K21.9 - Gastro-esophageal reflux disease without esophagitis Category: Medical Qualifiers: Esophagitis presence: without esophagitis Qualified Code(s): K21.9 - Gastro-esophageal reflux disease without esophagitis (5) BPH (benign prostatic hyperplasia): Comment: - Continue management with doxazosin. Code(s): N40.0 - Benign prostatic hyperplasia without lower urinary tract symptoms Category: Medical (6) Acute bilateral low back pain: Comment: - Review recent exacerbation with pain management via Aleve and Tylenol. - Discussed imaging studies, commencing with x-rays of the lumbar spine. - Initiate physical therapy, plan to reevaluate efficacy post-therapy. - Prescribed cyclobenzaprine 5mg for muscle relaxation at bedtime. - Restricted Aleve use due to potential for adverse effects. - Monitored symmetry of neuralgia, proposed MRI if symptomatic relief is inadequate. Code(s): M54.50 - Low back pain, unspecified Category: Medical (7) HLD (hyperlipidemia): Comment: - Continue Atorvastatin 10mg Daily Code(s): E78.5 - Hyperlipidemia, unspecified Category: Medical Plan: Healthcare Maintenance: - Blood work, including complete lipid and metabolic panel. - Initiated vitamin D measurement and other metabolic markers. - Counseling for health maintenance via increased exercise and smokeless environments. Patient was informed and verbally consented to the use of an ambient scribe for clinic note documentation during this visit. Plan I explained the multifaceted approach to managing his chronic and acute issues. For low back pain, advised starting with x-rays and physical therapy, considering MRI if no improvement is noted. Highlighted the importance of avoiding NSAIDs, offered cyclobenzaprine for symptomatic nightly relief. For COPD, reinforced continuous use of inhalers and lifestyle considerations as air quality impacts symptoms. I reiterated the full resumption of atorvastatin due to prior benefit demonstrated in lipid levels. We discussed ongoing management of hypertension with available medications. Reviewed necessity of blood work and impending results analysis. Recommended follow-up after diagnostics to adjust management plans accordingly. Orders: Orders XR lumbar spine 4V min Today M54.50 - Low back pain, unspecified, Z76.89 - Persons encountering health services in other specified circumstances Hepatitis A,B,C Profile Today Z76.89 - Persons encountering health services in other specified circumstances HIV Ab/Ag Today Z76.89 - Persons encountering health services in other specified circumstances Syphilis Screen Today Z76.89 - Persons encountering health services in other specified circumstances TSH reflex Free T4 Today Z76.89 - Persons encountering health services in other specified circumstances Complete Blood Count Auto Diff Today Z76.89 - Persons encountering health services in other specified circumstances Comprehensive Met. Panel Today Z76.89 - Persons encountering health services in other specified circumstances Hemoglobin A1c Today Z76.89 - Persons encountering health services in other specified circumstances Lipid Panel Today Z76.89 - Persons encountering health services in other specified circumstances Vitamin D 25-OH Total Today Z76.89 - Persons encountering health services in other specified circumstances Medications: New cyclobenzaprine 5 mg PO BEDTIME PRN 30 tabs 0RF muscle spasm Changed From atorvastatin 10 mg PO DAILY To atorvastatin 10 mg PO DAILY 90 tabs 0RF 90 days From omeprazole 20 mg PO DAILY@0630 To omeprazole 20 mg PO DAILY@0630 90 caps 3RF 90 days From amlodipine 2.5 mg PO DAILY To amlodipine 2.5 mg PO DAILY 90 tabs 3RF 90 days From doxazosin 2 mg PO DAILY To doxazosin 2 mg PO DAILY 90 tabs 3RF 90 days From losartan 50 mg PO DAILY To losartan 50 mg PO DAILY 90 tabs 3RF 90 days Patient Instructions: - Take cyclobenzaprine 5mg before bed for back pain relief. - Follow up with x-ray and attend physical therapy as scheduled. - Avoid using Aleve if possible; continue Tylenol if needed for pain. - Continue using COPD medications as prescribed, avoid exposure to smoke. - Renew atorvastatin medication to manage cholesterol. - Monitor blood pressure regularly. - Attend scheduled blood work for complete health evaluation. - Consult us promptly for any worsening symptoms or new developments.
[2025-02-12 10:31] VITALS: BP 140/80; PULSE 77; TEMP 36.4; O2SAT 98; BMI 25.4
== END 2025-02-12 10:57 | disposition home or self-care (01) ==
LOC: HO.HMCHD 10:27
PROVIDERS: PCP Student in an Organized Health Care Education/Training Program; Visit Provider Student in an Organized Health Care Education/Training Program
DX: J44.9 Chronic obstructive pulmonary disease, unspecified (principal); Z12.2 Encounter for screening for malignant neoplasm of respiratory organs; I10 Essential (primary) hypertension; K21.9 Gastro-esophageal reflux disease without esophagitis; N40.0 Benign prostatic hyperplasia without lower urinary tract symptoms; M54.50 Low back pain, unspecified; E78.5 Hyperlipidemia, unspecified

== ENCOUNTER 2025-02-12 10:26 | Outpatient (REF) | payer MEDICARE, SELFPAY ==
--- NOTE | ~2025-02-12 | XR_ITS ---
EXAMINATION: XR LUMBAR SPINE 4 OR MORE VIEWS HISTORY: M54.50 - Low back pain, unspecified COMPARISON: There are no prior studies for comparison. FINDINGS: AP, lateral, bilateral oblique, and coned down views of the lumbar spine are submitted. Osseous mineralization is normal. Five nonrib-bearing lumbar vertebral bodies are identified, maintaining normal height and alignment without evidence of fracture or spondylolisthesis. There is severe degenerative disc disease at the L5-S1 level with disc space narrowing and osteophyte formation. Milder changes are noted at the remaining levels. The posterior elements are intact. There is no spondylolysis. There is calcification of the abdominal aorta. XR/XR lumbar spine 4V min IMPRESSION: Degenerative disc disease of the lumbar spine as described. Electronically signed by: Toy Altamirano MD 02/12/2025 11:51 AM EDT
== END 2025-02-12 10:27 | disposition home or self-care (01) ==
LOC: HO.XRAY 10:26
PROVIDERS: PCP Student in an Organized Health Care Education/Training Program; Visit Provider Student in an Organized Health Care Education/Training Program
DX: Z13.89 Encounter for screening for other disorder (principal)
CPT/HCPCS: 72110; 96127; 99202

== ENCOUNTER 2025-02-12 11:02 | Outpatient (REF) | payer MEDICARE, SELFPAY ==
[2025-02-12 12:01] LABS: MANUAL DIFF FLAG NO
[2025-02-12 12:08] LABS: Hematocrit 38.1 % (42.0-52.0); Hemoglobin 13.0 g/dl (14.0-18.0); Imm Gran Abs Auto 0.02 X10*3/uL (0.00-0.03); Imm Gran Pct Auto 0.3 % (0.0-0.4); Lymphocytes Absolute Auto 1.5 X10*3/uL (1.2-4.9); Mean Corpuscular HGB Conc 34.1 g/dl (31.0-36.0); Mean Corpuscular Hemoglobin 34.1 pg (27.0-33.0); Mean Corpuscular Volume 100.0 fL (80.0-98.0); NRBC Abs Auto 0.000 X10*3/uL (0.0-0.012); NRBC Pct Auto 0.0 /100WBC (0.0-0.2); Platelet Count 286 X10*3/uL (160-400); Red Blood Count 3.81 X10*6/uL (4.60-5.80); White Blood Count 6.7 X10*3/uL (4.8-10.8)
[2025-02-12 12:22] LABS: Alanine Aminotransferase 21 U/L (0-40); Albumin Level 4.2 g/dL (3.5-5.0); Alkaline Phosphatase 52 U/L (39-117); Anion Gap 13 (12-20); Aspartate Amino Transferase 24 U/L (5-37); Blood Urea Nitrogen 11 mg/dL (9-16); Calcium 8.6 mg/dL (8.4-10.2); Carbon Dioxide 28 mmol/L (22-29); Chloride 105 mmol/L (96-108); Cholesterol 222 mg/dL (<200); Estimated Glomerular Filt Rate > 60; HDL Cholesterol 60 mg/dL (>40); Potassium 4.1 mmol/L (3.3-5.1); Sodium 142 mmol/L (135-145); Total Protein 6.5 g/dL (6.5-8.0); Triglycerides 123 mg/dL (<150)
[2025-02-12 12:39] LABS: HBS Num1 0.00 mIU/mL (0-7.99); HBc Num1 0.06 S/CO (0.00-0.79); HBsAGNum1 0.34 S/CO (0.00-0.99); HIV Num 1 0.05 S/CO (0.00-0.99); Hepatitis A Antibody IgM 0.17 Index (0-0.79); Hepatitis B Surface Antigen Negative (Negative); Syphilis Screen Nonreactive (Nonreactive); ~HepC Num1 0.19 S/CO (0.00-0.79); ~Hepatitis A Antibody IgM Nonreactive (Nonreactive); ~Hepatitis B Surface Antibody NONREACTIVE (Nonreactive); ~Hepatitis C Antibody Nonreactive (Nonreactive)
== END 2025-02-12 11:03 | disposition home or self-care (01) ==
LOC: HO.10HDL 11:02
PROVIDERS: Visit Provider Student in an Organized Health Care Education/Training Program
DX: Z13.1 Encounter for screening for diabetes mellitus (principal); M54.50 Low back pain, unspecified; Z76.89 Persons encountering health services in other specified circumstances; Z11.4 Encounter for screening for human immunodeficiency virus [HIV]; Z13.6 Encounter for screening for cardiovascular disorders; Z13.29 Encounter for screening for other suspected endocrine disorder
CPT/HCPCS: 36415; 72110; 80053; 80061; 82306; 83036; 84443; 85025; 86704; 86706; 86709; 86780; 86803; 87340; 87389; 96127; 99202

== ENCOUNTER → 2025-02-12 11:25 | Outpatient (BNV) | payer MEDICARE, SELFPAY | PROVIDERS: PCP Student in an Organized Health Care Education/Training Program; Visit Provider Radiology Diagnostic Radiology | DX: M51.360 Other intervertebral disc degeneration, lumbar region with discogenic back pain only (principal) | CPT/HCPCS: 72110 ==

== ENCOUNTER 2025-02-22 11:00 | Outpatient (AMB) | payer MEDICARE, SELFPAY ==
[2025-02-22 11:02] VITALS: BP 102/58; PULSE 94; O2SAT 93; BMI 23.8
--- NOTE | 2025-02-22 11:02 | A.OFFVIS_ITS ---
Vital Signs 02/22/25 11:02 Height 5 ft 7 in Weight 152 lb BMI 23.8 BP 102/58 L Blood Pressure Location Lt brachial Position Sitting Pulse 94 Pulse Source Pulse Oximeter Pulse Oximetry (%) 93 Oxygen Delivery Method Room Air Intake Visit Reasons: COPD Allergies No Known Allergies Allergy (Verified 02/22/25 11:07) HPI HPI COPD: Details: 69-year-old gentleman, recent 50 pack-year smoker, quit 09/2022, now followed for severe COPD and environmental allergies. He continues Anoro, ipratropium, and albuterol MDI with good control of his symptoms. He denies recent exacerbations. Patient has completed immunologic testing that does show an allergic component to his symptoms that at this time is controlled on antihistamine. [facility] Medical History (Updated 02/22/25 @ 11:35 by Rupert Diaz MD) Acute bilateral low back pain HLD (hyperlipidemia) Hypertension BPH (benign prostatic hyperplasia) Severe chronic obstructive pulmonary disease COPD exacerbation On home O2 Chronic obstructive lung disease Chronic lung disease GERD (gastroesophageal reflux disease) Hypertension Surgical History History of colonoscopy (~01/08/15) History of appendectomy Family History (Updated 02/12/25 @ 10:37 by Meli Gordillo MA) Mother No problems noted. Father No problems noted. Social History Household Members: Friend(s) Household Members Other:: daughter lives next door Housing: Apartment Do you presently have visiting nurse or other home services: No Alcohol intake: current Alcohol intake frequency: does not drink Alcohol type: beer Patient Tobacco Use Status: Former Tobacco user Tobacco use type: Cigarette Cigarette Packs Per Day: 1 Cigarettes Per Day: 20.0 Years Smoked: 50 e-Cigarette/Vaping Use: Never Used Second Hand Smoke Exposure: No Advance Directives Date on File: 02/26/22 service: No Current occupational status: employed Cognitive needs: No Hearing needs: No Vision needs: Yes (rx glasses) Review of Systems Const Denies daytime sleepiness, Denies excessive sweating, Denies fatigue, Denies fever(s), Denies lethargy, Denies malaise, Denies night sweats, Denies snoring and Denies weight loss Eyes Denies blurry vision and Denies itchy eyes ENT Denies nasal congestion, Denies post nasal drip, Denies sinus pain, Denies sinus pressure and Denies other ( Thrush) Card Denies chest pain, Denies pedal edema, Denies dyspnea, Denies orthopnea and Denies paroxysmal nocturnal dyspnea Resp Denies cough, Denies hemoptysis, Denies excessive phlegm production, Denies dyspnea, Denies snoring and Denies wheezing GI Denies abdominal pain and Denies heartburn Musc Denies myalgias, Denies arthralgias and Denies joint swelling Skin/Breast Denies rash Neuro Denies memory loss and Denies seizure-like activity Psych Denies abnormal sleep pattern, Denies anxiety and Denies memory loss Endo Denies excessive sweating, Denies fatigue and Denies heat intolerance Mikey/Lymph Denies easy bruising Aller/Immun Denies itchy eyes, Denies seasonal rhinorrhea and Denies wheezing Physical Exam Vital Signs: Last Vital Signs Pulse 94 02/22/25 11:02 BP 102/58 L 02/22/25 11:02 Pulse Ox 93 02/22/25 11:02 Oxygen Delivery Method Room Air 02/22/25 11:02 BMI result Body Mass Index 23.8 Const General: no acute distress and alert Nutritional Appearance: not obese Orientation/consciousness: Other orientation findings ( oriented) HEENT Head: Yes atraumatic Eyes General: appearance normal, both eyes and all related structures Sclerae: sclerae normal EOM: EOMs intact bilaterally Neck Neck: Yes supple Lymphatic: no lymphadenopathy noted Resp Effort & Inspection: normal respiratory effort and no use of accessory muscles Auscultation: clear to auscultation bilaterally Cardio Rate: regular rate Rhythm: regular rhythm Heart sounds: no gallops, no murmurs and no rubs Skin General skin exam: other ( warm) Extrem General: No clubbing, No cyanosis and No edema Assessment & Plan Assessment & Plan (1) Severe chronic obstructive pulmonary disease: Code(s): J44.9 - Chronic obstructive pulmonary disease, unspecified Category: Medical Plan: Well controlled on current regimen of Anoro, albuterol MDI, and nebs. Continue current regimen. (2) Personal history of nicotine dependence: Code(s): Z87.891 - Personal history of nicotine dependence Category: Medical Plan: Results of lung cancer screening CT chest from June of 2024 reviewed, no worrisome nodules, continue with yearly screening. (3) Environmental allergies: Code(s): Z91.09 - Other allergy status, other than to drugs and biological substances Category: Medical Plan: Results for immunologic reviewed, patient does have significant allergic component to his symptoms at at this time is controlled on antihistamine. If fails to be controlled, will reconsider Xolair. Coding Level of Care Code Est Pt Level 4 (49834) Complex EM visit Add On G2211 Diagnoses Severe chronic obstructive pulmonary disease J44.9 Personal history of nicotine dependence Z87.891 Environmental allergies Z91.09
== END 2025-02-22 11:31 | disposition home or self-care (01) ==
LOC: HO.HPS 11:00
PROVIDERS: Visit Provider Internal Medicine Pulmonary Disease
DX: J44.9 Chronic obstructive pulmonary disease, unspecified (principal); Z87.891 Personal history of nicotine dependence; Z91.09 Other allergy status, other than to drugs and biological substances
CPT/HCPCS: 99214; G2211

== ENCOUNTER → 2025-02-22 11:00 | Outpatient (BNVA) | payer MEDICARE, SELFPAY | PROVIDERS: Visit Provider Internal Medicine Pulmonary Disease | DX: J44.9 Chronic obstructive pulmonary disease, unspecified (principal); Z91.09 Other allergy status, other than to drugs and biological substances; Z87.891 Personal history of nicotine dependence | CPT/HCPCS: 99212 ==